=== PATIENT | female | born 1980 | race African-American/Black ===

== ENCOUNTER 2020-11-06 09:03 | Inpatient (IN) | payer OTHER, SELFPAY ==
[2020-11-06 09:04] VITALS: BP 146/74; PULSE 90; RESP 20; TEMP 36.4; O2SAT 99; BMI 20.5
[2020-11-06 09:27] VITALS: BP 115/82; PULSE 103; RESP 18; O2SAT 100
--- NOTE | 2020-11-06 09:33 | PC.NURSE ---
PT cooperative with ion exchange operator, reports SI no plans. Pt tearful, states she has not had her medications in a few days. Pt reports that she has tourette's syndrome, periodically screaming.
--- NOTE | 2020-11-06 10:06 | ED_ITS ---
HPI - Psych General Chief Complaint: Psychiatric Symptoms Stated Complaint: crisis Time Seen by Provider: 11/06/20 09:54 Source: patient Mode of arrival: ambulatory History of Present Illness HPI Narrative: 40-year-old female with a past medical history of schizoaffective disorder, substance abuse, presenting to the ED complaining of suicidal ideations with plan to jump off a bridge into cold water, and medication noncompliance for the past few days. Reports ETOH use yesterday, denies today. Denies HI, also it drug use, cough, fever, chills, CP/SOB MD complaint: suicidal ideation and feels depressed Related Data Home Medications Medication Instructions Recorded Confirmed citalopram 20 mg PO DAILY 11/06/20 11/06/20 risperidone [Risperdal] 1 mg PO DAILY 11/06/20 11/06/20 risperidone [Risperdal] 3 mg PO BEDTIME 11/06/20 11/06/20 Allergies Allergy/AdvReac Type Severity Reaction Status Date / Time haloperidol [From HALDOL] Allergy Mild DROWSY Unverified 07/28/20 17:43 From HALDOL Allergy Mild DROWSY Uncoded 07/28/20 17:43 From SEROQUEL Allergy Mild AUDITORY Uncoded 07/28/20 17:43 HALLUCINATIONS Review of Systems Review of Systems: Constitutional: No Weight loss, No Fever, No Chills Cardiovascular: No Chest Pain, No SOB Respiratory: No Cough, No Sputum Gastrointestinal: No Nausea, No Vomiting, No Diarrhea, No Constipation, No Abdominal pain Musculoskeletal: No joint pain, No Myalgias, No Joint Swelling Skin: No Skin Lesions, No rash Psych: No Anxiety/Panic, + Depression, + SI, No HI Yes all other systems are reviewed and are negative PMFSH Past Medical History Attestation statement: The following information was validated with the patient. Social History Social History Alcohol intake: former Smoking Status: Current every day smoker Smoked in Last 30 Days: Yes Use of substances other than those prescribed or required for medical reasons: No Advance Directives: No Advance Directives Information Provided: No Physical Exam Vital Signs: Vital Signs: Last Vital Signs Temp 97.5 F 11/06/20 09:04 Pulse 103 H 11/06/20 09:27 Resp 18 11/06/20 09:27 BP 115/82 11/06/20 09:27 Pulse Ox 100 11/06/20 09:27 Body Mass Index 20.5 Const: Other: Tearful General: cooperative and healthy appearing Limitations: no limitations HENMT: Head: Yes normal to inspection Ears: hearing grossly normal bilaterally General nose exam: Normal external nose present Face and sinus: Yes normal facial exam Eyes: General: appearance normal, both eyes and all related structures EOM: EOMs intact bilaterally Neck: Neck: Yes normal visual inspection Resp: Effort & Inspection: normal respiratory effort Auscultation: clear to auscultation bilaterally, no rales, no rhonchi and no wheezes Cardio: Rate: regular rate Heart sounds: S1 normal heart sound present and S2 normal heart sound present GI: Inspection: Yes normal to inspection Skin: Rashes: no rashes Wounds: no wounds Neuro: Gait exam (Neuro): Normal gait present Extrem: General: Yes normal to inspection Psych: Attitude: cooperative Thought content: Suicidality present Course Course Course Narrative: * Labs unremarkable, COVID-19 swab negative * Patient was evaluated by [facility] and is now inpatient bed search MDM - Psych MDM Narrative Medical decision making narrative: 40-year-old female with a past medical history of schizoaffective disorder, substance abuse, presenting to the ED complaining of suicidal ideations with plan to jump off a bridge into cold water, and medication noncompliance for the past few days. On exam VSS, NAD, tearful, cooperative. Rule out organic etiology. Plan: Labs, DELGADO, BHN consult Lab Data Result diagrams: 11/06/20 10:26 11/06/20 10:26 Labs: Lab Results 11/06/20 11/06/20 11/06/20 Range/Units 10:03 10:26 10:26 WBC 4.6 L (4.8-10.8) X10*3/uL RBC 4.97 (4.20-5.50) X10*6/uL Hgb 13.4 (12.0-16.0) g/dl Hct 41.8 (37-47) % MCV 84.1 (80-98) fL MCH 27.0 (27.0-33.0) pg MCHC 32.1 (31.0-35.0) g/dl RDW 15.2 (11.0-16.0) % Plt Count 392 (160-400) X10*3/uL MPV 9.3 L (9.4-12.3) fL Immature Gran % (Auto) 0.2 (0.0-0.4) % Neut % (Auto) 44.0 L (45-73) % Lymph % (Auto) 39.8 (20-40) % [place] % (Auto) 7.8 (2-11) % Eos % (Auto) 7.8 H (0-4) % Baso % (Auto) 0.4 (0-2) % Lymph # (Auto) 1.8 (1.2-4.9) X10*3/uL [place] # (Auto) 0.4 (0.1-1.2) X10*3/uL Eos # (Auto) 0.4 (0.0-0.4) X10*3/uL Baso # (Auto) 0.0 (0.0-0.2) X10*3/uL Abs Immat Gran (auto) 0.01 (0.00-0.03) X10*3/uL Absolute Neuts (auto) 2.0 (2.0-8.3) X10*3/uL Absolute Nucleated RBC 0.000 (0.0-0.012) X10*3/uL Nucleated RBC % (auto) 0.0 (0.0-0.2) /100WBC Sodium 139 (135-145) mmol/L Potassium 4.6 (3.3-5.1) mmol/l Chloride 105 (96-108) mmol/L Carbon Dioxide 24 (22-29) mmol/L Anion Gap 15 (12-20) BUN 15 (9-16) mg/dL Creatinine 0.96 (0.5-1.4) mg/dL Estim Creat Clear Calc 67.6 Estimated GFR > 60 Random Glucose 98 (60-115) mg/dL Calcium 9.4 (8.4-10.2) mg/dL Magnesium 2.0 (1.6-2.6) mg/dL Total Bilirubin 0.3 (0.0-1.0) mg/dL Direct Bilirubin < 0.2 (0.0-0.5) mg/dL AST 26 (5-31) U/L ALT 22 (0-31) U/L Alkaline Phosphatase 54 (39-117) U/L Total Protein 8.1 H (6.5-8.0) g/dL Albumin 4.7 (3.5-5.0) g/dL Urine Opiates Screen Not Detected (Not Detect) Ur Barbiturates Screen Not Detected (Not Detect) Ur Phencyclidine Scrn Not Detected (Not Detect) Ur Amphetamines Screen Not Detected (Not Detect) U Benzodiazepines Scrn Not Detected (Not Detect) Urine Cocaine Screen POSITIVE H (Not Detect) U Marijuana (THC) Screen POSITIVE H (Not Detect) Ethyl Alcohol mg/dL COVID-19 (VAISHNAVI) (Negative) COVID-19 Clin Com 11/06/20 11/06/20 Range/Units 10:26 12:03 WBC (4.8-10.8) X10*3/uL RBC (4.20-5.50) X10*6/uL Hgb (12.0-16.0) g/dl Hct (37-47) % MCV (80-98) fL MCH (27.0-33.0) pg MCHC (31.0-35.0) g/dl RDW (11.0-16.0) % Plt Count (160-400) X10*3/uL MPV (9.4-12.3) fL Immature Gran % (Auto) (0.0-0.4) % Neut % (Auto) (45-73) % Lymph % (Auto) (20-40) % [place] % (Auto) (2-11) % Eos % (Auto) (0-4) % Baso % (Auto) (0-2) % Lymph # (Auto) (1.2-4.9) X10*3/uL [place] # (Auto) (0.1-1.2) X10*3/uL Eos # (Auto) (0.0-0.4) X10*3/uL Baso # (Auto) (0.0-0.2) X10*3/uL Abs Immat Gran (auto) (0.00-0.03) X10*3/uL Absolute Neuts (auto) (2.0-8.3) X10*3/uL Absolute Nucleated RBC (0.0-0.012) X10*3/uL Nucleated RBC % (auto) (0.0-0.2) /100WBC Sodium (135-145) mmol/L Potassium (3.3-5.1) mmol/l Chloride (96-108) mmol/L Carbon Dioxide (22-29) mmol/L Anion Gap (12-20) BUN (9-16) mg/dL Creatinine (0.5-1.4) mg/dL Estim Creat Clear Calc Estimated GFR Random Glucose (60-115) mg/dL Calcium (8.4-10.2) mg/dL Magnesium (1.6-2.6) mg/dL Total Bilirubin (0.0-1.0) mg/dL Direct Bilirubin (0.0-0.5) mg/dL AST (5-31) U/L ALT (0-31) U/L Alkaline Phosphatase (39-117) U/L Total Protein (6.5-8.0) g/dL Albumin (3.5-5.0) g/dL Urine Opiates Screen (Not Detect) Ur Barbiturates Screen (Not Detect) Ur Phencyclidine Scrn (Not Detect) Ur Amphetamines Screen (Not Detect) U Benzodiazepines Scrn (Not Detect) Urine Cocaine Screen (Not Detect) U Marijuana (THC) Screen (Not Detect) Ethyl Alcohol < 10 mg/dL COVID-19 (VAISHNAVI) Negative (Negative) COVID-19 Clin Com See Note Discharge Plan Discharge Clinical Impression: Depression, Suicidal ideation Prescriptions: No Action risperidone [Risperdal] 3 mg Tablet 3 mg PO BEDTIME RF: 0 risperidone [Risperdal] 1 mg Tablet 1 mg PO DAILY RF: 0 citalopram 20 mg Tablet 20 mg PO DAILY RF: 0
--- NOTE | 2020-11-06 10:30 | PC.NURSE ---
[facility] contacted, med rec completed. PT currently taking risperdone, also has prescription for citalopram 20mg but that has not been filled since July per the pharmacy.
[2020-11-06 10:33] LABS: Basophils Percent Auto 0.4 % (0-2); Eosinophils Absolute Auto 0.4 X10*3/uL (0.0-0.4); Eosinophils Percent Auto 7.8 % (0-4); Hematocrit 41.8 % (37-47); Hemoglobin 13.4 g/dl (12.0-16.0); Imm Gran Abs Auto 0.01 X10*3/uL (0.00-0.03); Imm Gran Pct Auto 0.2 % (0.0-0.4); Lymphocytes Absolute Auto 1.8 X10*3/uL (1.2-4.9); Lymphocytes Percent Auto 39.8 % (20-40); MANUAL DIFF FLAG NO; Mean Corpuscular HGB Conc 32.1 g/dl (31.0-35.0); Mean Corpuscular Volume 84.1 fL (80-98); Mean Platelet Volume 9.3 fL (9.4-12.3); Monocytes Absolute Auto 0.4 X10*3/uL (0.1-1.2); Monocytes Percent Auto 7.8 % (2-11); Platelet Count 392 X10*3/uL (160-400); Red Blood Count 4.97 X10*6/uL (4.20-5.50); Red Cell Distribution Width 15.2 % (11.0-16.0); White Blood Count 4.6 X10*3/uL (4.8-10.8)
[2020-11-06] MEDS: LORazepam 1 MG TABLET PO (10:35)
[2020-11-06 10:47] LABS: Amphetamine Screen Urine Not Detected (Not Detect); Barbiturates, Urine Not Detected (Not Detect); Benzodiazepines Screen Urine Not Detected (Not Detect); Cannabinoid Screen Urine POSITIVE (Not Detect); Cocaine Screen Urine POSITIVE (Not Detect); Opiate Screen Urine Not Detected (Not Detect); Phencyclidine Screen Urine Not Detected (Not Detect)
[2020-11-06 10:58] LABS: Ethanol < 10 mg/dL
[2020-11-06 11:01] LABS: Alanine Aminotransferase 22 U/L (0-31); Albumin Level 4.7 g/dL (3.5-5.0); Alkaline Phosphatase 54 U/L (39-117); Anion Gap 15 (12-20); Aspartate Amino Transferase 26 U/L (5-31); Bilirubin Direct < 0.2 mg/dL (0.0-0.5); Bilirubin Total 0.3 mg/dL (0.0-1.0); Blood Urea Nitrogen 15 mg/dL (9-16); Calcium 9.4 mg/dL (8.4-10.2); Carbon Dioxide 24 mmol/L (22-29); Chloride 105 mmol/L (96-108); Creatinine Clr Calc Pharmacy 67.6; Estimated Glomerular Filt Rate > 60; Glucose Random 98 mg/dL (60-115); Potassium 4.6 mmol/l (3.3-5.1); Sodium 139 mmol/L (135-145); Total Protein 8.1 g/dL (6.5-8.0)
--- NOTE | 2020-11-06 11:02 | PC.NURSE ---
MARILOU faxed and called, confirmed with angela
--- NOTE | 2020-11-06 11:47 | PC.NURSE ---
[facility] at bedside for eval.
[2020-11-06 12:32] LABS: COVID-19 Test Negative (Negative)
[2020-11-06 13:54] LABS: UPreg QC Valid YES; Urine Pregnancy NEGATIVE (NEGATIVE)
--- NOTE | 2020-11-06 14:14 | PC.NURSE ---
Pt sleeping, respirations even and unlabored, in no apparent distress.
[2020-11-06 16:21] VITALS: BP 93/53; PULSE 57; RESP 18; TEMP 37.1; O2SAT 95
--- NOTE | 2020-11-06 19:01 | PC.NURSE ---
Report received. Pt currently resting in bed, no signs of distress, respirations unlabored.
[2020-11-06] MEDS: risperiDONE 3 MG TABLET PO (20:27)
--- NOTE | 2020-11-06 20:34 | PC.NURSE ---
Pt offered standing dose of risperdal, did not respond to verbal request, not making any movement. RN gently touched pts shoulder, pt immediately shrieking in RN's ear, GET AWAY FROM ME! GET AWAY FROM ME!!! .
[2020-11-06 20:39] VITALS: BP 117/73; PULSE 58; RESP 18; TEMP 36.5; O2SAT 98
--- NOTE | 2020-11-06 21:48 | PC.NURSE ---
Pt currently sleeping, no signs of distress, respirations even and unlabored.
--- NOTE | 2020-11-06 23:51 | PC.NURSE ---
Pt currently sleeping, no signs of distress, respirations even and unlabored.
[2020-11-07 00:29] VITALS: RESP 16
--- NOTE | 2020-11-07 02:06 | PC.NURSE ---
Pt asleep at current, no signs of distress, respirations even and unlabored
--- NOTE | 2020-11-07 03:45 | PC.NURSE ---
PT ACTIVE SECTION 12 BEDSEARCH AT THIS TIME. SLEEPING. NO DISTRESS NOTED.
[2020-11-07 05:42] VITALS: RESP 16
[2020-11-07] MEDS: Nicotine 21 MG PATCH.TD24 TRANSDERMA (06:46)
--- NOTE | 2020-11-07 07:25 | PC.NURSE ---
Report received from yulissa Sheehan RN. Pt awake, conversing loudly w/ another pt. denies any concerns but reporting that there are ';demons' outside.
[2020-11-07] MEDS: LORazepam 1 MG TABLET 2 MG PO (08:14)
[2020-11-07] MEDS: risperiDONE 1 MG TABLET PO (08:15)
[2020-11-07 10:00] VITALS: RESP 18
--- NOTE | 2020-11-07 10:54 | PC.NURSE ---
Pt resting, resp unlabored.
--- NOTE | 2020-11-07 12:00 | PC.NURSE ---
Pt resting, resp unlabored.
[2020-11-07 12:08] VITALS: BP 99/42; PULSE 70; RESP 17; TEMP 37.3; O2SAT 99
--- NOTE | 2020-11-07 13:21 | PC.NURSE ---
Report given to MANJINDER Miguel on M5. Pt aware that she will be transferred upstairs, appears to be in agreement w/ plan.
--- NOTE | 2020-11-07 13:23 | ECG_ITS ---
Test Reason : MEDCLEARANCE Blood Pressure : / mmHG Vent. Rate : 068 BPM Atrial Rate : 068 BPM P-R Int : 140 ms QRS Dur : 088 ms QT Int : 418 ms P-R-T Axes : 015 055 027 degrees QTc Int : 444 ms Normal sinus rhythm Nonspecific T wave abnormality Abnormal ECG When compared with ECG of 07-MAR-2020 15:59, Questionable change in QRS axis Referred By: Generic ED Physician Electronically Signed By:MATHEUS FLAHERTY
--- NOTE | 2020-11-07 15:40 | PC.NURSE ---
Pt resting, resp unlabored.
--- NOTE | 2020-11-07 16:20 | PC.NURSE ---
Late entry: ~1545: CARE team in to transfer pt to . Pt cooperative, no concerns reported.
[2020-11-07 18:00] VITALS: BP 114/76; PULSE 114; TEMP 36.3
[2020-11-07] MEDS: risperiDONE 3 MG TABLET PO (20:07)
[2020-11-07] MEDS: hydrOXYzine HCL 25 MG TABLET PO (20:31)
--- NOTE | 2020-11-07 22:57 | PC.NURSE ---
Patient is a 40 year old Icelandic speaking female admitted as a CV admission to at 1600 and placed on 5 minute safety checks. She was medically cleared in the [facility], evaluated by [facility] and deemed in need of IPLOC secondary to substance use and SI with thoughts to jump off a bridge. Patient was unable to give a clear precip but did say that she has been having AH and VH, that are command in nature, to kill herself. The patient said that she was not even sure where there is a bridge to jump from. Patient has a long history of substance abuse: cocaine and marajuana and also drinks 40 oz of beer every day. The patient said that she has not had a beer in 2 weeks and denied any withdrawal symptoms. Patient was calm and cooperative during her admission process. She denied any current SI and feels safe on . She signed all of the paperwork and answered all of the questions. Her affect was flat and mood appeared depressed and somewhat anxious. Amaris Terrell aware of admission, orders were put in. Patient will be on 5 minute safety checks with unlocked bathroom. She also signed a 3 day notice which is up 11/10/2020.
[2020-11-08 05:05] VITALS: BP 115/64; PULSE 91; RESP 18; TEMP 36.6; O2SAT 99
[2020-11-08] MEDS: risperiDONE 1 MG TABLET PO (08:19)
[2020-11-08] MEDS: Escitalopram Oxalate 10 MG TABLET PO (08:19)
[2020-11-08] MEDS: Nicotine 21 MG PATCH.TD24 TRANSDERMA (10:38)
[2020-11-08] MEDS: LORazepam 0.5 MG TABLET PO (10:38)
[2020-11-08 18:00] VITALS: BP 106/56; PULSE 70; TEMP 36.8
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
[2020-11-08] MEDS: risperiDONE 3 MG TABLET PO (20:33)
[2020-11-08] MEDS: clonazePAM 0.5 MG TABLET PO (20:33)
[2020-11-09 06:30] VITALS: BP 98/63; PULSE 82; RESP 18; TEMP 36.4; O2SAT 98
[2020-11-09] MEDS: risperiDONE 1 MG TABLET PO ×2 (08:11→08:45)
[2020-11-09] MEDS: Escitalopram Oxalate 10 MG TABLET PO (08:11)
[2020-11-09] MEDS: Nicotine 21 MG PATCH.TD24 TRANSDERMA (08:11)
[2020-11-09] MEDS: LORazepam 0.5 MG TABLET PO (08:43)
--- NOTE | 2020-11-09 17:05 | HO.PSYCHPN ---
Subjective Subjective Date of Service: 11/09/20 Reason For Visit: schizoaffective disorder, depressive type Subjective Notes: 3 Day Interim History: Pt reports hearing voices this a.m. (Team confirms pt was responding to internal stimuli). Discussed Risperdal titration of a.m. dosing.and she agrees. Denies reports of perceptual alterations when we met. Discussed substance use. Reports she had been clean for 4-5 weeks [employer]. (UTox + cocaine, canniaus on admit). When she ran out of meds she reports she found herself outside-she did use she reports to self-medicate. States her prescribed medications are more helpful and when taken help her to stay clean. Medication Compliance: Yes Side effects from medications: No Attending Groups: Intermittent Review of Systems Genitourinary: Reports vaginal discharge (ordered CTNG urine and bacterial vaginosis self-swab testing) and Reports vaginal odor Psychiatric: Reports auditory hallucinations Mental Status Exam Mental Status Exam Patient Appearance: Appropriate Patient Orientation: Person, Place, Time and Situation Level of Consciousness: Awake and Alert Patient Behavior: Talkative and Cooperative Mood Description: Anxious Affect Description: Flat Patient Cognition Impaired: No Ability to Follow Directions: Good Speech Pattern: Clear and Appropriate Memory Description: Intact Hallucinations: None (during our meeting) and Auditory (earlier in the day reported and team aware and observing of sx.) Delusions: Not Present Thought Process: Intact Thought Content: positive for Intact, positive for [place], positive for Circumstantial (3 day notice expires 11/10. Pt reports she receives her check tomorrow.) and positive for Logical Depressive Symptoms: Thoughts of /Suicide (denies) Judgement: Fair Diagnostics Vital Signs (24Hr): Vital Signs - 24 hr 11/08/20 18:00 11/09/20 06:30 Temperature 98.2 F 97.6 F Pulse Rate 70 82 Respiratory Rate 18 Blood Pressure 106/56 L 98/63 Pulse Oximetry 98 Body Mass Index 20.5 Labs Results: 11/06/20 10:26 11/06/20 10:26 Labs: Laboratory Results - last 48 hr 11/09/20 13:30 Chlam trachomat DNA PCR Cancelled N.gonorrhoeae DNA (PCR) Cancelled Medications Medications Current Medications Generic Name Dose Route Start Last Admin Trade Name Freq PRN Reason Stop Dose Admin Acetaminophen 650 mg 11/07/20 15:06 Acetaminophen 325 Mg Tablet PO Q6H PRN Headache/Pain Mild Scale (1-3) Al Hydroxide/Mg Hydroxide 30 ml 11/07/20 15:06 Magnesium Hydrox/Alum Hydrox 30 Ml Oral.Susp PO Q6H PRN Heartburn/Nausea Clonazepam 0.5 mg 11/08/20 21:00 11/08/20 20:33 Clonazepam 0.5 Mg Tablet PO 0.5 mg BEDTIME YUDITH Administration Escitalopram Oxalate 10 mg 11/08/20 09:00 11/09/20 08:11 Escitalopram Oxalate 10 Mg Tablet PO 10 mg DAILY YUDITH Administration Hydroxyzine HCl 25 mg 11/07/20 15:06 11/07/20 20:31 Hydroxyzine Hcl 25 Mg Tablet PO 25 mg BEDTIME PRN Administration Anxiety Lorazepam 0.5 mg 11/08/20 10:28 11/09/20 08:43 Lorazepam 0.5 Mg Tablet PO 0.5 mg Q4H PRN Administration anxiety, agitation Magnesium Hydroxide 30 ml 11/07/20 15:06 Milk Of Magnesia 30 Ml Oral.Susp PO DAILY PRN Constipation Nicotine 21 mg 11/08/20 10:30 11/09/20 08:11 Nicotine 21 Mg Patch.Td24 TRANSDERMA 21 mg DAILY YUDITH Administration Risperidone 3 mg 11/06/20 21:00 11/08/20 20:33 Risperidone 3 Mg Tablet PO 3 mg BEDTIME YUDITH Administration Risperidone 1 mg 11/08/20 10:26 11/09/20 08:45 Risperidone 1 Mg Tablet PO 1 mg TID PRN Administration agitation Risperidone 2 mg 11/10/20 09:00 Risperidone 0.5 Mg Tablet PO DAILY YUDITH Trazodone HCl 50 mg 11/07/20 15:06 Trazodone Hcl 50 Mg Tablet PO BEDTIME PRN Insomnia Allergies Allergies Allergy/AdvReac Type Severity Reaction Status Date / Time haloperidol [From HALDOL] Allergy Mild DROWSY Verified 11/06/20 20:26 From HALDOL Allergy Mild DROWSY Uncoded 07/28/20 17:43 From SEROQUEL Allergy Mild AUDITORY Uncoded 07/28/20 17:43 HALLUCINATIONS Assessment & Plan Assessment & Plan (1) Schizoaffective disorder: Status: Acute Code(s): F25.9 - Schizoaffective disorder, unspecified Assessment and Plan: -Increase Risperdal to 2 mg a.m. -Lipids, FBS, A1C Greater than 50% of the session was spent on counseling and/or coordination of care Patient educated on: medication risk/benefits, substance abuse, therapeutic strategies and medical condition Informed Consent: understands and further education needed Reason for contiued inpatient stay Substantial Risk for: harm to self, inability to function and rapid decompensation
[2020-11-09 17:57] VITALS: BP 131/67; PULSE 85; RESP 18; TEMP 37.1; O2SAT 93
[2020-11-09 18:00] VITALS: BP 131/67; PULSE 85; RESP 18; TEMP 37.1; O2SAT 93
[2020-11-09] MEDS: clonazePAM 0.5 MG TABLET PO (21:47)
[2020-11-09] MEDS: risperiDONE 3 MG TABLET PO (21:47)
[2020-11-10 06:00] VITALS: BP 106/57; PULSE 69; TEMP 36.4; O2SAT 99
[2020-11-10] MEDS: Escitalopram Oxalate 10 MG TABLET PO (08:44)
[2020-11-10] MEDS: risperiDONE 0.5 MG TABLET 2 MG PO (08:44)
[2020-11-10] MEDS: Nicotine 21 MG PATCH.TD24 TRANSDERMA (08:45)
[2020-11-10 09:19] LABS: Cholesterol 180 mg/dL; Glucose Fasting 90 mg/dL (60-99); HDL Cholesterol 70 mg/dL; LDL Cholesterol Calculated 95 mg/dl; Triglycerides 79 mg/dL
[2020-11-10 09:20] LABS: Estimated Average Glucose 94 mg/dL; Hemoglobin A1c % 4.9 %
[2020-11-10 09:38] LABS: HIV AB/AG Nonreactive (Nonreactive); HIV Num 1 0.13 S/CO (0.00-0.99)
[2020-11-10 10:09] LABS: BV Int Neg Control Negative (Negative); BV Int Pos Control Positive (Positive)
--- NOTE | 2020-11-10 11:37 | PC.NURSE ---
Pt is aware of discharge. Pt is ready for discharge. Pt is cooperative. Pt is less labile and aggressive than upon admission. Pt's appointments are scheduled. Appointments and medications are faxed to PCP per protocol.
--- NOTE | 2020-11-10 13:41 | PM.PSYDC ---
DS: Providers Provider Date of admission: 11/07/20 15:08 Date of discharge: 11/10/20 Primary care physician: Unknown Physician Admitting clinician: Amaris Terrell Attending physician on admission: Pierre Perez Attending physician on discharge: Pierre Perez Discharging clinician: Amaris Terrell DS: Diagnosis Discharge Diagnosis (1) Schizoaffective disorder: Status: Acute DS: Medications Discharge Medications Home Medications: Previous Rx's Medication Instructions Recorded escitalopram oxalate 10 mg PO DAILY #30 tab 11/10/20 metronidazole 500 mg PO BID #10 tab 11/10/20 risperidone [Risperdal] 2 mg PO DAILY #30 tab 11/10/20 risperidone [Risperdal] 3 mg PO BEDTIME #30 tab 11/10/20 Discharge Plan Discharge Patient Disposition: Home, Self-Care Referrals: Geremias Shipman APRN (Psych Prescriber) [Other] - 12/01/20 1:20 pm Beatriz Urbina CNM [Certified Nurse Customer Service Sales Consultant] - 11/15/20 1:15 pm Physician,Unknown [Primary Care Provider] - Discharge Medications: New escitalopram oxalate 10 mg Tablet 10 mg PO DAILY Qty: 30 RF: 0 metronidazole 500 mg tablet 500 mg PO BID Qty: 10 RF: 0 risperidone [Risperdal] 2 mg tablet 2 mg PO DAILY Qty: 30 RF: 0 Continued risperidone [Risperdal] 3 mg Tablet 3 mg PO BEDTIME Qty: 30 RF: 0 Discontinued risperidone [Risperdal] 1 mg Tablet 1 mg PO DAILY RF: 0 citalopram 20 mg Tablet 20 mg PO DAILY RF: 0 Discharge Orders: Discharge Order (Routine); Ordered 11/10/20 Ordered By: Amaris Terrell Diet: advance to usual diet Activity on Discharge: As tolerated Patient Instructions: Metronidazole (By mouth) Stand Alone Forms: Community Support Discharge Date/Time: 11/10/20 12:45 Print Language: Yoruba Visit Report Forms: Patient Portal Discharge page Care Plan Goals: mood stabilit Health Concerns: Metronidazole given for positive screen for gardnerella Plan of Treatment: Follow up with PCP, gynecology, out patient therapy and medication providers Mental Status Exam Mental Status Exam Patient Appearance: Appropriate Patient Orientation: Person, Place, Time and Situation Level of Consciousness: Awake, Appropriate and Alert Patient Behavior: Appropriate Mood Description: Anxious Affect Description: Constricted Patient Cognition Impaired: No Ability to Follow Directions: Good Speech Pattern: Spontaneous Speech Memory Description: Intact Hallucinations: None Delusions: Not Present Thought Process: Intact Thought Content: positive for Intact Judgement: Fair Data Data Completed and Pending Completed studies during hospitalization [Text1]: 11/06/20 11/06/20 11/06/20 10:03 10:03 10:26 WBC 4.6 L RBC 4.97 Hgb 13.4 Hct 41.8 MCV 84.1 MCH 27.0 MCHC 32.1 RDW 15.2 Plt Count 392 MPV 9.3 L Immature Gran % (Auto) 0.2 Neut % (Auto) 44.0 L Lymph % (Auto) 39.8 [place] % (Auto) 7.8 Eos % (Auto) 7.8 H Baso % (Auto) 0.4 Lymph # (Auto) 1.8 [place] # (Auto) 0.4 Eos # (Auto) 0.4 Baso # (Auto) 0.0 Abs Immat Gran (auto) 0.01 Absolute Neuts (auto) 2.0 Absolute Nucleated RBC 0.000 Nucleated RBC % (auto) 0.0 Sodium Potassium Chloride Carbon Dioxide Anion Gap BUN Creatinine Estim Creat Clear Calc Estimated GFR Random Glucose Fasting Glucose Estimat Average Glucose Hemoglobin A1c % Calcium Magnesium Total Bilirubin Direct Bilirubin AST ALT Alkaline Phosphatase Total Protein Albumin Triglycerides Cholesterol LDL Cholesterol, Calc HDL Cholesterol Urine Test NEGATIVE Urine Opiates Screen Not Detected Ur Barbiturates Screen Not Detected Ur Phencyclidine Scrn Not Detected Ur Amphetamines Screen Not Detected U Benzodiazepines Scrn Not Detected Urine Cocaine Screen POSITIVE H U Marijuana (THC) Screen POSITIVE H Ethyl Alcohol T.pallidum Ab (EIA) Dora species DNA Chlam trachomat DNA PCR C.trachomatis RNA (TMA) Chlamydia/GC Comment COVID-19 ([facility]) COVID-19 Clin Com Gardnerella DNA Probe HIV 1&2 Ab/P24 Ag 4thGn N.gonorrhoeae DNA (PCR) N.gonorrhoeae RNA (TMA) Trichomonas DNA Probe 11/06/20 11/06/20 11/06/20 10:26 10:26 12:03 WBC RBC Hgb Hct MCV MCH MCHC RDW Plt Count MPV Immature Gran % (Auto) Neut % (Auto) Lymph % (Auto) [place] % (Auto) Eos % (Auto) Baso % (Auto) Lymph # (Auto) [place] # (Auto) Eos # (Auto) Baso # (Auto) Abs Immat Gran (auto) Absolute Neuts (auto) Absolute Nucleated RBC Nucleated RBC % (auto) Sodium 139 Potassium 4.6 Chloride 105 Carbon Dioxide 24 Anion Gap 15 BUN 15 Creatinine 0.96 Estim Creat Clear Calc 67.6 Estimated GFR > 60 Random Glucose 98 Fasting Glucose Estimat Average Glucose Hemoglobin A1c % Calcium 9.4 Magnesium 2.0 Total Bilirubin 0.3 Direct Bilirubin < 0.2 AST 26 ALT 22 Alkaline Phosphatase 54 Total Protein 8.1 H Albumin 4.7 Triglycerides Cholesterol LDL Cholesterol, Calc HDL Cholesterol Urine Test Urine Opiates Screen Ur Barbiturates Screen Ur Phencyclidine Scrn Ur Amphetamines Screen U Benzodiazepines Scrn Urine Cocaine Screen U Marijuana (THC) Screen Ethyl Alcohol < 10 T.pallidum Ab (EIA) Dora species DNA Chlam trachomat DNA PCR C.trachomatis RNA (TMA) Chlamydia/GC Comment COVID-19 ([facility]) Negative COVID-19 Clin Com See Note Gardnerella DNA Probe HIV 1&2 Ab/P24 Ag 4thGn N.gonorrhoeae DNA (PCR) N.gonorrhoeae RNA (TMA) Trichomonas DNA Probe 11/09/20 11/09/20 11/09/20 13:30 13:30 13:30 WBC RBC Hgb Hct MCV MCH MCHC RDW Plt Count MPV Immature Gran % (Auto) Neut % (Auto) Lymph % (Auto) [place] % (Auto) Eos % (Auto) Baso % (Auto) Lymph # (Auto) [place] # (Auto) Eos # (Auto) Baso # (Auto) Abs Immat Gran (auto) Absolute Neuts (auto) Absolute Nucleated RBC Nucleated RBC % (auto) Sodium Potassium Chloride Carbon Dioxide Anion Gap BUN Creatinine Estim Creat Clear Calc Estimated GFR Random Glucose Fasting Glucose Estimat Average Glucose Hemoglobin A1c % Calcium Magnesium Total Bilirubin Direct Bilirubin AST ALT Alkaline Phosphatase Total Protein Albumin Triglycerides Cholesterol LDL Cholesterol, Calc HDL Cholesterol Urine Test Urine Opiates Screen Ur Barbiturates Screen Ur Phencyclidine Scrn Ur Amphetamines Screen U Benzodiazepines Scrn Urine Cocaine Screen U Marijuana (THC) Screen Ethyl Alcohol T.pallidum Ab (EIA) Dora species DNA Negative Chlam trachomat DNA PCR Cancelled C.trachomatis RNA (TMA) Pending Chlamydia/GC Comment Pending COVID-19 ([facility]) COVID-19 Clin Com Gardnerella DNA Probe Positive A HIV 1&2 Ab/P24 Ag 4thGn N.gonorrhoeae DNA (PCR) Cancelled N.gonorrhoeae RNA (TMA) Pending Trichomonas DNA Probe Negative 11/10/20 11/10/20 11/10/20 08:14 08:14 08:14 WBC RBC Hgb Hct MCV MCH MCHC RDW Plt Count MPV Immature Gran % (Auto) Neut % (Auto) Lymph % (Auto) [place] % (Auto) Eos % (Auto) Baso % (Auto) Lymph # (Auto) [place] # (Auto) Eos # (Auto) Baso # (Auto) Abs Immat Gran (auto) Absolute Neuts (auto) Absolute Nucleated RBC Nucleated RBC % (auto) Sodium Potassium Chloride Carbon Dioxide Anion Gap BUN Creatinine Estim Creat Clear Calc Estimated GFR Random Glucose Fasting Glucose 90 Estimat Average Glucose Hemoglobin A1c % Calcium Magnesium Total Bilirubin Direct Bilirubin AST ALT Alkaline Phosphatase Total Protein Albumin Triglycerides 79 Cholesterol 180 LDL Cholesterol, Calc 95 HDL Cholesterol 70 Urine Test Urine Opiates Screen Ur Barbiturates Screen Ur Phencyclidine Scrn Ur Amphetamines Screen U Benzodiazepines Scrn Urine Cocaine Screen U Marijuana (THC) Screen Ethyl Alcohol T.pallidum Ab (EIA) Pending Dora species DNA Chlam trachomat DNA PCR C.trachomatis RNA (TMA) Chlamydia/GC Comment COVID-19 ([facility]) COVID-19 Clin Com Gardnerella DNA Probe HIV 1&2 Ab/P24 Ag 4thGn Nonreactive N.gonorrhoeae DNA (PCR) N.gonorrhoeae RNA (TMA) Trichomonas DNA Probe 11/10/20 08:14 WBC RBC Hgb Hct MCV MCH MCHC RDW Plt Count MPV Immature Gran % (Auto) Neut % (Auto) Lymph % (Auto) [place] % (Auto) Eos % (Auto) Baso % (Auto) Lymph # (Auto) [place] # (Auto) Eos # (Auto) Baso # (Auto) Abs Immat Gran (auto) Absolute Neuts (auto) Absolute Nucleated RBC Nucleated RBC % (auto) Sodium Potassium Chloride Carbon Dioxide Anion Gap BUN Creatinine Estim Creat Clear Calc Estimated GFR Random Glucose Fasting Glucose Estimat Average Glucose 94 Hemoglobin A1c % 4.9 Calcium Magnesium Total Bilirubin Direct Bilirubin AST ALT Alkaline Phosphatase Total Protein Albumin Triglycerides Cholesterol LDL Cholesterol, Calc HDL Cholesterol Urine Test Urine Opiates Screen Ur Barbiturates Screen Ur Phencyclidine Scrn Ur Amphetamines Screen U Benzodiazepines Scrn Urine Cocaine Screen U Marijuana (THC) Screen Ethyl Alcohol T.pallidum Ab (EIA) Dora species DNA Chlam trachomat DNA PCR C.trachomatis RNA (TMA) Chlamydia/GC Comment COVID-19 ([facility]) COVID-19 Clin Com Gardnerella DNA Probe HIV 1&2 Ab/P24 Ag 4thGn N.gonorrhoeae DNA (PCR) N.gonorrhoeae RNA (TMA) Trichomonas DNA Probe DS: Summary Hospital Course Hospital Course: 40 yo female reporting being off of medications for ~72 hours with SI and plan to jump from a bridge. Reported AH, [employer], improved with re-establishing Risperdal dosing when she signed a 3 day notice to leave, citing wanting to visit with her son on and apple picker her monthly check. Reports she was clean/sober until 11/03 when she started to run low on meds. She relapsed on cannabis and cocaine and found herself destabilized and unmodulated which led to SI. Pt was agreeable to Risperdal titration. She reported vaginal discharge, odor and discomfort. Urine and vaginal cultures were taken and pt was initiated on a course of Metronidazole 500 mg bid for 5 days after a consultation with Dr. Siu. She completed the three day notice length of stay for evaluation. Time spent discussing smoking cessation with patient: more than 10 minutes Status at Discharge Cognitive/behavioral status at discharge: Euthymic and anxious to leave. Functional status at discharge: independent ambulation Overall status at discharge: patient is progressing back to baseline Time Spent with Patient Time attestation: Total time spent providing and/or coordinating discharge services: 45 Time spent: Greater than 30 minutes
[2020-11-11 03:44] LABS: Syphilis Screen Nonreactive (Nonreactive)
== END 2020-11-10 12:45 | disposition home or self-care (01) | DRG 750 ==
LOC: HO.ED 11-07 08:10 → HO.PM5 11-07 15:15
PROVIDERS: Clinical Nurse Specialist Psychiatric/Mental Health, Adult; Physician Assistant; Admitting Provider Psychiatry & Neurology Psychiatry; Emergency Provider Emergency Medicine Emergency Medical Services; Visit Provider Psychiatry & Neurology Psychiatry
DX: F25.9 Schizoaffective disorder, unspecified (principal); R45.851 Suicidal ideations; Z91.14 Patient's other noncompliance with medication regimen; Z20.828 Contact with and (suspected) exposure to other viral communicable diseases; Z79.899 Other long term (current) drug therapy
CPT/HCPCS: 36415; 80048; 80061; 80076; 80307; 80320; 81025; 82947; 83036; 83735; 85025; 86780; 87389; 87480; 87491; 87510; 87591; 87635; 87660; 90792; 93005; 99232; 99239; 99285

== ENCOUNTER 2020-12-29 07:35 | Inpatient (IN) | payer OTHER, SELFPAY ==
[2020-12-29 08:14] VITALS: BP 130/79; PULSE 72; RESP 20; TEMP 37.2; O2SAT 97; BMI 21.2
--- NOTE | 2020-12-29 08:25 | ECG_ITS ---
Test Reason : QUESION OVERDOSE Blood Pressure : / mmHG Vent. Rate : 059 BPM Atrial Rate : 059 BPM P-R Int : 142 ms QRS Dur : 082 ms QT Int : 444 ms P-R-T Axes : 009 071 048 degrees QTc Int : 439 ms Sinus bradycardia Otherwise normal ECG When compared with ECG of 07-NOV-2020 13:25, No significant change was found Referred By: Generic ED Physician Electronically Signed By:Brent Marion
[2020-12-29 08:33] LABS: MANUAL DIFF FLAG NO
[2020-12-29 08:35] LABS: Basophils Percent Auto 0.3 % (0-2); Eosinophils Absolute Auto 0.1 X10*3/uL (0.0-0.4); Eosinophils Percent Auto 0.7 % (0-4); Hematocrit 35.6 % (37-47); Hemoglobin 11.5 g/dl (12.0-16.0); Imm Gran Abs Auto 0.01 X10*3/uL (0.00-0.03); Imm Gran Pct Auto 0.1 % (0.0-0.4); Lymphocytes Absolute Auto 3.1 X10*3/uL (1.2-4.9); Mean Corpuscular HGB Conc 32.3 g/dl (31.0-35.0); Mean Corpuscular Hemoglobin 26.8 pg (27.0-33.0); Mean Platelet Volume 8.9 fL (9.4-12.3); Monocytes Absolute Auto 0.8 X10*3/uL (0.1-1.2); Monocytes Percent Auto 8.3 % (2-11); Neutrophils Absolute Auto 5.6 X10*3/uL (2.0-8.3); Neutrophils Percent Auto 58.6 % (45-73); Platelet Count 357 X10*3/uL (160-400); Red Blood Count 4.29 X10*6/uL (4.20-5.50); Red Cell Distribution Width 15.5 % (11.0-16.0); White Blood Count 9.6 X10*3/uL (4.8-10.8)
--- NOTE | 2020-12-29 08:40 | ED.PSYCH ---
HPI - Psych General Chief Complaint: Psychiatric Symptoms Stated Complaint: crisis Time Seen by Provider: 12/29/20 08:40 Source: patient Mode of arrival: ambulatory Limitations: no limitations History of Present Illness HPI Narrative: 40 y/o female with history of schizoaffective disorder, depression, polysubstance abuse, depression with multiple visits for SI, reported hx of suidide attempts, and homelessness who presents to the ED with depression and suicidal ideation. She states she is suicidal weekly due to ongoing stressors of being homeless. She wants to move to [place] and have a fresh start. She has no reason to live. She has been scratching herself and pulling out her hair. No other significant injuries. She initially told nursing she took an overdose of her Invega, then she later stated that she ran out of her medication. She denies a specific plan to kill herself. She admits to smoking crack cocaine yesterday. Denies ETOH use and other drug use. MD complaint: suicidal ideation Onset (ago): day(s) Duration: constant History of same: Yes Relieving factors: none Exacerbating factors: drug use Context: recent drug abuse and not taking psychiatric medications Associated psychiatric symptoms: depression, suicidal ideation and auditory hallucinations Associated symptoms: insomnia Treatments prior to arrival: none If self harm: admits thoughts of self harm Related Data Home Medications Medication Instructions Recorded Confirmed divalproex [Depakote ER] 500 mg PO BEDTIME 12/29/20 12/29/20 mirtazapine 15 mg PO BEDTIME 12/29/20 12/29/20 naltrexone 50 mg PO DAILY 12/29/20 12/29/20 paliperidone [Invega] 6 mg PO QAM 12/29/20 12/29/20 Allergies Allergy/AdvReac Type Severity Reaction Status Date / Time haloperidol [From HALDOL] Allergy Mild DROWSY Verified 11/06/20 20:26 From HALDOL Allergy Mild DROWSY Uncoded 07/28/20 17:43 From SEROQUEL Allergy Mild AUDITORY Uncoded 07/28/20 17:43 HALLUCINATIONS Review of Systems Review of Systems: Constitutional: No Fever, No Chills Cardiovascular: No Chest Pain, No SOB, No Orthopnea, No Edema Respiratory: No Cough, No Sputum, No Wheezing, No dyspnea Gastrointestinal: No Nausea, No Vomiting, No Diarrhea, No abdominal Pain Genitourinary: No Dysuria, No Urinary Frequency, No Hematuria Musculoskeletal: No joint pain, No Myalgias Skin: N+ Skin Lesions, No rash Neuro: No Weakness, No Numbness, No Dizziness, No Headache Psych: +Anxiety/Panic, +Depression, +SI, +auditory hallucinations Heme/Lymph: No Bruising, No Lymphadenopathy Endocrine: No Polyuria, No Polydipsia PMF Past Medical History Attestation statement: The following information was validated with the patient. Medical History Cannabis use disorder, moderate, dependence Cocaine use disorder Schizoaffective disorder Social History Social History Household Members: Family Housing: Apartment Alcohol intake: former Smoking Status: Current every day smoker Tobacco Type: Cigarette Packs Per Day: 1 Cigarettes Per Day: 20.0 Years Smoked: 10 Second Hand Smoke Exposure: No Substance Use Type: Crack/Cocaine and Marijuana Advance Directives: No Advance Directives Information Provided: No service: No Sexual orientation: Straight/Heterosexual Physical Exam Vital Signs: Vital Signs: Last Vital Signs Temp 98.9 F 12/29/20 08:14 Pulse 72 12/29/20 08:14 Resp 20 12/29/20 14:00 BP 130/79 12/29/20 08:14 Pulse Ox 97 12/29/20 08:14 Body Mass Index 21.2 Appearance: Alert. Oriented X3. Tearful and anxious Eyes: Pupils equal, round and reactive to light. ENT: Pharynx normal. Neck: Normal inspection. Neck supple. CVS: Normal heart rate and rhythm. Pulses normal. Respiratory: No respiratory distress. Breath sounds normal. Abdomen: Soft and nontender. +BS x4 Skin: Skin warm and dry. Normal skin color. Normal skin turgor. No rashes. Extremities: No lower extremity edema. Superficial scratches to bilateral forearms. Neuro/Psych: Oriented X 3. Racing thoughts, SI, +auditory hallucinations, tearful, inconsistent affect, laughing and crying. poor insight Course Course Course Narrative: 40 y/o female presenting with SI and auditory hallucinations - question of taking too much Invega. She is inconsistent with her history. Will get basic lab workup and EKG. Once medically cleared will have her evaluated by N. Reevaluation(s) Reevaluation #1: EKG without prolonged QTC. labs show mild new anemia. Utox +cocaine and THC. Will start home meds aside from Invega which will be started tomorrow. BHN to see. MDM - Psych Medical Records Attestation: I reviewed the patient's medical records. Lab Data Attestation: I reviewed the patient's lab results. Result diagrams: 12/29/20 08:27 12/29/20 08:27 Labs: Lab Results 12/29/20 12/29/20 12/29/20 Range/Units 08:27 08:27 08:27 WBC 9.6 (4.8-10.8) X10*3/uL RBC 4.29 (4.20-5.50) X10*6/uL Hgb 11.5 L (12.0-16.0) g/dl Hct 35.6 L (37-47) % MCV 83.0 (80-98) fL MCH 26.8 L (27.0-33.0) pg MCHC 32.3 (31.0-35.0) g/dl RDW 15.5 (11.0-16.0) % Plt Count 357 (160-400) X10*3/uL MPV 8.9 L (9.4-12.3) fL Immature Gran % (Auto) 0.1 (0.0-0.4) % Neut % (Auto) 58.6 (45-73) % Lymph % (Auto) 32.0 (20-40) % [place] % (Auto) 8.3 (2-11) % Eos % (Auto) 0.7 (0-4) % Baso % (Auto) 0.3 (0-2) % Lymph # (Auto) 3.1 (1.2-4.9) X10*3/uL [place] # (Auto) 0.8 (0.1-1.2) X10*3/uL Eos # (Auto) 0.1 (0.0-0.4) X10*3/uL Baso # (Auto) 0.0 (0.0-0.2) X10*3/uL Abs Immat Gran (auto) 0.01 (0.00-0.03) X10*3/uL Absolute Neuts (auto) 5.6 (2.0-8.3) X10*3/uL Absolute Nucleated RBC 0.000 (0.0-0.012) X10*3/uL Nucleated RBC % (auto) 0.0 (0.0-0.2) /100WBC Sodium 140 (135-145) mmol/L Potassium 4.0 (3.3-5.1) mmol/L Chloride 107 (96-108) mmol/L Carbon Dioxide 25 (22-29) mmol/L Anion Gap 12 (12-20) BUN 8 L (9-16) mg/dL Creatinine 0.75 (0.5-1.4) mg/dL Estim Creat Clear Calc 83.3 Estimated GFR > 60 Random Glucose 89 (60-115) mg/dL Calcium 8.9 (8.4-10.2) mg/dL Total Bilirubin 0.3 (0.0-1.0) mg/dL AST 22 (5-31) U/L ALT 17 (0-31) U/L Alkaline Phosphatase 46 (39-117) U/L Total Protein 7.2 (6.5-8.0) g/dL Albumin 4.3 (3.5-5.0) g/dL Urine Test (NEGATIVE) Salicylates < 5.0 L (15-30) mg/dL Urine Opiates Screen (Not Detect) Acetaminophen < 1 (<30) mcg/mL Ur Barbiturates Screen (Not Detect) Ur Phencyclidine Scrn (Not Detect) Ur Amphetamines Screen (Not Detect) U Benzodiazepines Scrn (Not Detect) Urine Cocaine Screen (Not Detect) U Marijuana (THC) Screen (Not Detect) Ethyl Alcohol < 10 mg/dL COVID-19 ([facility]) (Negative) COVID-19 Clin Com 12/29/20 12/29/20 12/29/20 Range/Units 09:29 13:00 13:10 WBC (4.8-10.8) X10*3/uL RBC (4.20-5.50) X10*6/uL Hgb (12.0-16.0) g/dl Hct (37-47) % MCV (80-98) fL MCH (27.0-33.0) pg MCHC (31.0-35.0) g/dl RDW (11.0-16.0) % Plt Count (160-400) X10*3/uL MPV (9.4-12.3) fL Immature Gran % (Auto) (0.0-0.4) % Neut % (Auto) (45-73) % Lymph % (Auto) (20-40) % [place] % (Auto) (2-11) % Eos % (Auto) (0-4) % Baso % (Auto) (0-2) % Lymph # (Auto) (1.2-4.9) X10*3/uL [place] # (Auto) (0.1-1.2) X10*3/uL Eos # (Auto) (0.0-0.4) X10*3/uL Baso # (Auto) (0.0-0.2) X10*3/uL Abs Immat Gran (auto) (0.00-0.03) X10*3/uL Absolute Neuts (auto) (2.0-8.3) X10*3/uL Absolute Nucleated RBC (0.0-0.012) X10*3/uL Nucleated RBC % (auto) (0.0-0.2) /100WBC Sodium (135-145) mmol/L Potassium (3.3-5.1) mmol/L Chloride (96-108) mmol/L Carbon Dioxide (22-29) mmol/L Anion Gap (12-20) BUN (9-16) mg/dL Creatinine (0.5-1.4) mg/dL Estim Creat Clear Calc Estimated GFR Random Glucose (60-115) mg/dL Calcium (8.4-10.2) mg/dL Total Bilirubin (0.0-1.0) mg/dL AST (5-31) U/L ALT (0-31) U/L Alkaline Phosphatase (39-117) U/L Total Protein (6.5-8.0) g/dL Albumin (3.5-5.0) g/dL Urine Test NEGATIVE (NEGATIVE) Salicylates (15-30) mg/dL Urine Opiates Screen Not Detected (Not Detect) Acetaminophen (<30) mcg/mL Ur Barbiturates Screen Not Detected (Not Detect) Ur Phencyclidine Scrn Not Detected (Not Detect) Ur Amphetamines Screen Not Detected (Not Detect) U Benzodiazepines Scrn Not Detected (Not Detect) Urine Cocaine Screen POSITIVE H (Not Detect) U Marijuana (THC) Screen POSITIVE H (Not Detect) Ethyl Alcohol mg/dL COVID-19 ([facility]) Negative (Negative) COVID-19 Clin Com See Note ECG Data Attestation: I personally reviewed and interpreted this ECG as follows: ECG interpretation date: 12/29/20 ECG interpretation time: 13:44 Interpretation: sinus bradycardia, HR 59, QTc 439 ms, normal MN interval. Critical Care Time Critical Care Time Critical Care Time: No Discharge Plan Discharge Prescriptions: No Action naltrexone 50 mg Tablet 50 mg PO DAILY RF: 0 mirtazapine 15 mg Tablet 15 mg PO BEDTIME RF: 0 paliperidone [Invega] 6 mg Tablet Extended Release 24hr 6 mg PO QAM RF: 0 divalproex [Depakote ER] 500 mg Tablet Extended Release 24 Hr 500 mg PO BEDTIME RF: 0
[2020-12-29] MEDS: LORazepam 1 MG TABLET 2 MG PO (08:53)
[2020-12-29 09:06] LABS: Ethanol < 10 mg/dL
[2020-12-29 09:08] LABS: Acetaminophen LAB < 1 mcg/mL (<30); Alanine Aminotransferase 17 U/L (0-31); Albumin Level 4.3 g/dL (3.5-5.0); Alkaline Phosphatase 46 U/L (39-117); Anion Gap 12 (12-20); Aspartate Amino Transferase 22 U/L (5-31); Bilirubin Total 0.3 mg/dL (0.0-1.0); Blood Urea Nitrogen 8 mg/dL (9-16); Calcium 8.9 mg/dL (8.4-10.2); Carbon Dioxide 25 mmol/L (22-29); Chloride 107 mmol/L (96-108); Creatinine Clr Calc Pharmacy 83.3; Estimated Glomerular Filt Rate > 60; Glucose Random 89 mg/dL (60-115); Salicylate < 5.0 mg/dL (15-30); Sodium 140 mmol/L (135-145); Total Protein 7.2 g/dL (6.5-8.0)
--- NOTE | 2020-12-29 09:37 | PC.NURSE ---
On patient arrival, pt agitated, swearing, tearful. Pt seen by provider and medicated as ordered. Pt currently resting in room.
--- NOTE | 2020-12-29 09:56 | PC.NURSE ---
Pharmacy in to complete medication reconciliation.
[2020-12-29 10:00] VITALS: RESP 20
--- NOTE | 2020-12-29 10:04 | PC.NURSE ---
Pt declined to allow staff to complete EKG.
[2020-12-29 10:06] LABS: COVID-19 Test Negative (Negative); IDNOW Serial# 9DD0AD1C
--- NOTE | 2020-12-29 10:20 | PC.NURSE ---
[facility] called and faxed
--- NOTE | 2020-12-29 10:33 | PC.NURSE ---
Pt resting, resp unlabored.
[2020-12-29 12:00] VITALS: RESP 20
--- NOTE | 2020-12-29 12:05 | PC.NURSE ---
Pt resting resp unlabored
[2020-12-29 13:22] LABS: UPreg QC Valid YES; Urine Pregnancy NEGATIVE (NEGATIVE)
[2020-12-29 13:46] LABS: Amphetamine Screen Urine Not Detected (Not Detect); Barbiturates, Urine Not Detected (Not Detect); Benzodiazepines Screen Urine Not Detected (Not Detect); Cannabinoid Screen Urine POSITIVE (Not Detect); Cocaine Screen Urine POSITIVE (Not Detect); Opiate Screen Urine Not Detected (Not Detect); Phencyclidine Screen Urine Not Detected (Not Detect)
--- NOTE | 2020-12-29 13:51 | PC.NURSE ---
Pt resting- reviewed RENUKA w/ A Analilia- Delgado held today secondary to question of OD.
[2020-12-29 14:00] VITALS: RESP 20
--- NOTE | 2020-12-29 15:24 | PC.NURSE ---
Pt restiong, resp unlabored
--- NOTE | 2020-12-29 16:54 | PC.NURSE ---
CARE team aware that pt has not been evaluated by N, in to evaluate at this time.
--- NOTE | 2020-12-29 17:40 | MHC.CARE ---
Pt was seen by CARE Team, with plan for inpatient bedsearch. Full assessment to follow.
[2020-12-29 17:43] VITALS: BP 110/64; PULSE 62; RESP 16; TEMP 36.5; O2SAT 97
[2020-12-29 18:00] VITALS: RESP 20
--- NOTE | 2020-12-29 18:12 | PC.NURSE ---
Pt resting, resp unlabored
--- NOTE | 2020-12-29 19:16 | PC.NURSE ---
Patient in bed appears sleeping, no distress observed/reported, respiration +/=/non-labored bilaterally, pending admission to . will continue to monitor.
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
[2020-12-30 06:40] VITALS: BP 100/54; PULSE 50; RESP 14; TEMP 36.9; O2SAT 98
[2020-12-30] MEDS: Naltrexone HCl 50 MG TABLET PO (08:32)
[2020-12-30] MEDS: Paliperidone ER 6 MG TAB.ER.24 PO (08:33)
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
[2020-12-30 17:00] VITALS: BP 100/54; PULSE 52; TEMP 37.1
[2020-12-30] MEDS: Divalproex Sodium ER 500 MG TAB.ER.24H PO (21:55)
[2020-12-30] MEDS: Mirtazapine 15 MG TABLET PO (21:56)
[2020-12-31 06:35] VITALS: BP 87/45; PULSE 50; RESP 18; TEMP 36.7; O2SAT 96
[2020-12-31] MEDS: Ferrous Sulfate 324 MG TABLET.DR PO (08:30)
[2020-12-31] MEDS: Paliperidone ER 6 MG TAB.ER.24 PO (08:30)
[2020-12-31] MEDS: Naltrexone HCl 50 MG TABLET PO (08:30)
[2020-12-31 09:13] LABS: Cholesterol 190 mg/dL; Estimated Average Glucose 94 mg/dL; Glucose Fasting 82 mg/dL (60-99); HDL Cholesterol 64 mg/dL; Hemoglobin A1c % 4.9 %; LDL Cholesterol Calculated 114 mg/dl; Triglycerides 60 mg/dL
[2020-12-31 09:17] LABS: Valproate 28.8 mcg/mL (50.0-100.0)
[2020-12-31 09:30] LABS: Thyroid Stimulating Hormone 0.64 uIU/mL (0.32-4.0)
--- NOTE | 2020-12-31 16:14 | HO.PSYCHPN ---
Subjective Subjective Date of Service: 12/31/20 Reason For Visit: Schizoaffective Disorder Subjective Notes: Conditional Voluntary Interim History: Narcisa was pleasant and cooperative. She reports that she is improving and had no immediate concerns Medication Compliance: Yes Side effects from medications: No Attending Groups: Intermittent Review of Systems Acute medical concerns: No Medical Review of Systems: unchanged Review of Systems Review of Systems Constitutional: No Fever, No Chills Cardiovascular: No Chest Pain, No SOB, No Orthopnea, No Edema Respiratory: No Cough, No Sputum, No Wheezing, No dyspnea Gastrointestinal: No Nausea, No Vomiting, No Diarrhea, No abdominal Pain Genitourinary: No Dysuria, No Urinary Frequency, No Hematuria Musculoskeletal: No joint pain, No Myalgias Skin: N+ Skin Lesions, No rash Neuro: No Weakness, No Numbness, No Dizziness, No Headache Psych: +Anxiety/Panic, +Depression, +SI, +auditory hallucinations Heme/Lymph: No Bruising, No Lymphadenopathy Endocrine: No Polyuria, No Polydipsia Mental Status Exam Mental Status Exam Patient Appearance: Fatigued and Disheveled Patient Orientation: Person, Place, Time and Situation Level of Consciousness: Awake Patient Behavior: Guarded, Talkative, Cooperative, Suspicious, Anxious, Fatigued, Distractible and Good Eye Contact Mood Description: Apathetic, Withdrawn, Depressed and Anxious Affect Description: Withdrawn and Constricted Patient Cognition Impaired: No Ability to Follow Directions: Good Speech Pattern: Clear, Perseverating, Spontaneous Speech, Soft-Spoken and Delayed Memory Description: Episodic Impaired Thought Content: negative for Suicidal Ideation and negative for Homicidal Ideation Diagnostics Vital Signs (24Hr): Vital Signs - 24 hr 12/30/20 17:00 12/31/20 06:35 Temperature 98.8 F 98.1 F Pulse Rate 52 50 Respiratory Rate 18 Blood Pressure 100/54 L 87/45 L Pulse Oximetry 96 Body Mass Index 21.2 Labs Results: 12/29/20 08:27 12/29/20 08:27 Labs: Laboratory Results - last 48 hr 12/31/20 12/31/20 08:16 08:16 Fasting Glucose 82 Estimat Average Glucose 94 Hemoglobin A1c % 4.9 Triglycerides 60 Cholesterol 190 LDL Cholesterol, Calc 114 HDL Cholesterol 64 TSH 0.64 Valproic Acid 28.8 L Medications Medications Current Medications Generic Name Dose Route Start Last Admin Trade Name Freq PRN Reason Stop Dose Admin Acetaminophen 650 mg 02/18/21 21:05 Acetaminophen 325 Mg Tablet PO Q6H PRN Headache/Pain Mild Scale (1-3) Al Hydroxide/Mg Hydroxide 30 ml 12/29/20 21:05 Magnesium Hydrox/Alum Hydrox 30 Ml Oral.Susp PO Q6H PRN Heartburn/Nausea Divalproex Sodium 500 mg 12/29/20 21:00 12/30/20 21:55 Divalproex Sodium Er 500 Mg Tab.Er.24h PO 500 mg BEDTIME [facility] Administration Ferrous Sulfate 324 mg 12/31/20 09:00 12/31/20 08:30 Ferrous Sulfate 324 Mg Tablet.Dr PO 324 mg DAILY [facility] Administration Hydroxyzine HCl 25 mg 12/29/20 21:05 Hydroxyzine Hcl 25 Mg Tablet PO BEDTIME PRN Anxiety Magnesium Hydroxide 30 ml 12/29/20 21:05 Milk Of Magnesia 30 Ml Oral.Susp PO DAILY PRN Constipation Mirtazapine 15 mg 12/29/20 21:00 12/30/20 21:56 Mirtazapine 15 Mg Tablet PO 15 mg BEDTIME [facility] Administration Naltrexone HCl 50 mg 12/30/20 09:00 12/31/20 08:30 Naltrexone Hcl 50 Mg Tablet PO 50 mg DAILY [facility] Administration Nicotine Polacrilex 2 mg 12/29/20 21:05 Nicotine Polacrilex 2 Mg Gum BUCCAL Q2H PRN Nicotine Cravings Paliperidone 6 mg 12/29/20 11:15 12/31/20 08:30 Paliperidone Er 6 Mg Tab.Er.24 PO 6 mg DAILY [facility] Administration Pharmacy Consult 1 each 12/29/20 08:44 Consult Rx Perform Med Rec MISCELLANE ONCE PRN Consult order Trazodone HCl 50 mg 12/29/20 21:05 Trazodone Hcl 50 Mg Tablet PO BEDTIME PRN Insomnia Allergies Allergies Allergy/AdvReac Type Severity Reaction Status Date / Time haloperidol [From HALDOL] Allergy Mild DROWSY Verified 11/06/20 20:26 From HALDOL Allergy Mild DROWSY Uncoded 07/28/20 17:43 From SEROQUEL Allergy Mild AUDITORY Uncoded 07/28/20 17:43 HALLUCINATIONS Assessment & Plan Assessment & Plan (1) Mild anemia: Status: Acute Code(s): D64.9 - Anemia, unspecified Assessment and Plan: Ferrous Sulfate 324 mg daily Labs ordered (2) Cannabis use disorder, moderate, dependence: Status: Acute Code(s): F12.20 - Cannabis dependence, uncomplicated (3) Cocaine use disorder: Status: Acute Code(s): F14.10 - Cocaine abuse, uncomplicated Assessment and Plan: - Pt interested in [facility] (4) Schizoaffective disorder: Qualifiers: Schizoaffective disorder type: unspecified Qualified Code(s): F25.9 - Schizoaffective disorder, unspecified Status: Acute Code(s): F25.9 - Schizoaffective disorder, unspecified Assessment and Plan: -Re-establish regime of Invega, Valproate, Mirtazapine, Naltrexone (5) Depression: Qualifiers: Active/Remission status: currently active Depression Type: major depressive disorder Major depression episode severity: severe Major depression recurrence: recurrent Psychotic features: without psychotic features Qualified Code(s): F33.2 - Major depressive disorder, recurrent severe without psychotic features Status: Acute Code(s): F32.9 - Major depressive disorder, single episode, unspecified Assessment and Plan: -Milieu therapy, psychopharmacology, re-establish out patient alliances and residential treatment Greater than 50% of the session was spent on counseling and/or coordination of care Reason for contiued inpatient stay Substantial Risk for: inability to function
[2020-12-31 19:00] VITALS: BP 102/51; PULSE 70; TEMP 36.8
[2020-12-31] MEDS: Mirtazapine 15 MG TABLET PO (20:21)
[2020-12-31] MEDS: Divalproex Sodium ER 500 MG TAB.ER.24H PO (20:22)
[2021-01-01 06:30] VITALS: BP 104/54; PULSE 58; RESP 14; TEMP 36.7; O2SAT 98
[2021-01-01] MEDS: Naltrexone HCl 50 MG TABLET PO (09:08)
[2021-01-01] MEDS: Ferrous Sulfate 324 MG TABLET.DR PO (09:08)
[2021-01-01] MEDS: Paliperidone ER 6 MG TAB.ER.24 PO (09:08)
[2021-01-01] MEDS: Nicotine 21 MG PATCH.TD24 TRANSDERMA (14:02)
[2021-01-01 16:50] VITALS: BP 122/60; PULSE 78; TEMP 37.2
--- NOTE | 2021-01-01 17:14 | HO.PSYCHPN ---
Subjective Subjective Date of Service: 01/01/21 Reason For Visit: Schizoaffective Disorder Subjective Notes: Conditional Voluntary Interim History: Narcisa was pleasant and cooperative. She reports that she is improving and had no immediate concerns Medication Compliance: Yes Side effects from medications: No Attending Groups: No Review of Systems Acute medical concerns: No Medical Review of Systems: unchanged Review of Systems Review of Systems Constitutional: No Fever, No Chills Cardiovascular: No Chest Pain, No SOB, No Orthopnea, No Edema Respiratory: No Cough, No Sputum, No Wheezing, No dyspnea Gastrointestinal: No Nausea, No Vomiting, No Diarrhea, No abdominal Pain Genitourinary: No Dysuria, No Urinary Frequency, No Hematuria Musculoskeletal: No joint pain, No Myalgias Skin: N+ Skin Lesions, No rash Neuro: No Weakness, No Numbness, No Dizziness, No Headache Psych: +Anxiety/Panic, +Depression, +SI, +auditory hallucinations Heme/Lymph: No Bruising, No Lymphadenopathy Endocrine: No Polyuria, No Polydipsia Mental Status Exam Mental Status Exam Patient Appearance: Fatigued and Disheveled Patient Orientation: Person, Place, Time and Situation Level of Consciousness: Awake Patient Behavior: Guarded, Talkative, Cooperative, Suspicious, Anxious, Fatigued, Distractible and Good Eye Contact Mood Description: Apathetic, Withdrawn, Depressed and Anxious Affect Description: Withdrawn and Constricted Patient Cognition Impaired: No Ability to Follow Directions: Good Speech Pattern: Clear, Perseverating, Spontaneous Speech, Soft-Spoken and Delayed Memory Description: Episodic Impaired Hallucinations: None Delusions: Not Present Thought Process: Intact Thought Content: negative for Suicidal Ideation and negative for Homicidal Ideation Diagnostics Vital Signs (24Hr): Vital Signs - 24 hr 12/31/20 19:00 01/01/21 06:30 Temperature 98.2 F 98.1 F Pulse Rate 70 58 Respiratory Rate 14 Blood Pressure 102/51 L 104/54 L Pulse Oximetry 98 Body Mass Index 21.2 Labs Results: 12/29/20 08:27 12/29/20 08:27 Labs: Laboratory Results - last 48 hr 12/31/20 12/31/20 08:16 08:16 Fasting Glucose 82 Estimat Average Glucose 94 Hemoglobin A1c % 4.9 Triglycerides 60 Cholesterol 190 LDL Cholesterol, Calc 114 HDL Cholesterol 64 TSH 0.64 Valproic Acid 28.8 L Medications Medications Current Medications Generic Name Dose Route Start Last Admin Trade Name Freq PRN Reason Stop Dose Admin Acetaminophen 650 mg 12/29/20 21:05 Acetaminophen 325 Mg Tablet PO Q6H PRN Headache/Pain Mild Scale (1-3) Al Hydroxide/Mg Hydroxide 30 ml 12/29/20 21:05 Magnesium Hydrox/Alum Hydrox 30 Ml Oral.Susp PO Q6H PRN Heartburn/Nausea Divalproex Sodium 500 mg 12/29/20 21:00 12/31/20 20:22 Divalproex Sodium Er 500 Mg Tab.Er.24h PO 500 mg BEDTIME YUDITH Administration Ferrous Sulfate 324 mg 12/31/20 09:00 01/01/21 09:08 Ferrous Sulfate 324 Mg Tablet.Dr PO 324 mg DAILY YUDITH Administration Hydroxyzine HCl 25 mg 12/29/20 21:05 Hydroxyzine Hcl 25 Mg Tablet PO BEDTIME PRN Anxiety Magnesium Hydroxide 30 ml 12/29/20 21:05 Milk Of Magnesia 30 Ml Oral.Susp PO DAILY PRN Constipation Mirtazapine 15 mg 12/29/20 21:00 12/31/20 20:21 Mirtazapine 15 Mg Tablet PO 15 mg BEDTIME YUDITH Administration Naltrexone HCl 50 mg 12/30/20 09:00 01/01/21 09:08 Naltrexone Hcl 50 Mg Tablet PO 50 mg DAILY YUDITH Administration Nicotine 21 mg 01/01/21 13:47 01/01/21 14:02 Nicotine 21 Mg Patch.Td24 TRANSDERMA 21 mg DAILY YUDITH Administration Nicotine Polacrilex 2 mg 12/29/20 21:05 Nicotine Polacrilex 2 Mg Gum BUCCAL Q2H PRN Nicotine Cravings Paliperidone 6 mg 12/29/20 11:15 01/01/21 09:08 Paliperidone Er 6 Mg Tab.Er.24 PO 6 mg DAILY YUDITH Administration Pharmacy Consult 1 each 12/29/20 08:44 Consult Rx Perform Med Rec MISCELLANE ONCE PRN Consult order Trazodone HCl 50 mg 12/29/20 21:05 Trazodone Hcl 50 Mg Tablet PO BEDTIME PRN Insomnia Allergies Allergies Allergy/AdvReac Type Severity Reaction Status Date / Time haloperidol [From HALDOL] Allergy Mild DROWSY Verified 11/06/20 20:26 From HALDOL Allergy Mild DROWSY Uncoded 07/28/20 17:43 From SEROQUEL Allergy Mild AUDITORY Uncoded 07/28/20 17:43 HALLUCINATIONS Assessment & Plan Assessment & Plan (1) Mild anemia: Status: Acute Code(s): D64.9 - Anemia, unspecified (2) Cannabis use disorder, moderate, dependence: Status: Acute Code(s): F12.20 - Cannabis dependence, uncomplicated (3) Cocaine use disorder: Status: Acute Code(s): F14.10 - Cocaine abuse, uncomplicated (4) Schizoaffective disorder: Qualifiers: Schizoaffective disorder type: unspecified Qualified Code(s): F25.9 - Schizoaffective disorder, unspecified Status: Acute Code(s): F25.9 - Schizoaffective disorder, unspecified (5) Depression: Qualifiers: Active/Remission status: currently active Depression Type: major depressive disorder Major depression episode severity: severe Major depression recurrence: recurrent Psychotic features: without psychotic features Qualified Code(s): F33.2 - Major depressive disorder, recurrent severe without psychotic features Status: Acute Code(s): F32.9 - Major depressive disorder, single episode, unspecified Assessment and Plan: Ferrous Sulfate 324 mg daily Labs ordered - Pt interested in [place] [facility] -Re-establish regime of Invega, Valproate, Mirtazapine, Naltrexone -Milieu therapy, psychopharmacology, re-establish out patient alliances and residential treatment No change to above plan Greater than 50% of the session was spent on counseling and/or coordination of care Patient educated on: diagnosis, medication risk/benefits and substance abuse Informed Consent: further education needed Reason for contiued inpatient stay Substantial Risk for: inability to function
[2021-01-01] MEDS: Mirtazapine 15 MG TABLET PO (21:28)
[2021-01-01] MEDS: Divalproex Sodium ER 500 MG TAB.ER.24H PO (21:28)
[2021-01-02 03:53] LABS: Folate 12.9 ng/mL (> or = 4.0); Vitamin B12 498 pg/mL (200-900)
[2021-01-02 06:10] VITALS: BP 108/64; PULSE 72; RESP 18; TEMP 37.1; O2SAT 97
[2021-01-02] MEDS: Paliperidone ER 6 MG TAB.ER.24 PO (09:31)
[2021-01-02] MEDS: Nicotine 21 MG PATCH.TD24 TRANSDERMA (09:31)
[2021-01-02] MEDS: Naltrexone HCl 50 MG TABLET PO (09:31)
[2021-01-02] MEDS: Ferrous Sulfate 324 MG TABLET.DR PO (09:31)
[2021-01-02 16:30] VITALS: BP 100/57; PULSE 69; TEMP 36.6
--- NOTE | 2021-01-02 18:59 | P.PNPSI_ITS ---
Subjective Subjective Date of Service: 01/02/21 Reason For Visit: Schizoaffective Disorder Subjective Notes: Conditional Voluntary Interim History: Pt requesting discharge. States she will be able to live with her father and describes his home as safe, healing, with privacy (will have her own room) and a better place for me to stay on track . Pt willing to have team talk with her father to validate this plan and assess if appropriate. 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 She discussed how difficult it has been for her over the year to work with a telehealth model vs. in person care. Denies sx with re-titration of medications. Medication Compliance: Yes Side effects from medications: No Attending Groups: No Review of Systems Review of Systems Yes all other systems are reviewed and are negative (pt denies current symptoms) Psychiatric: Reports anxiety, Reports irritability and Reports mood swings Mental Status Exam Mental Status Exam Patient Appearance: Appropriate Patient Orientation: Person, Place, Time and Situation Level of Consciousness: Awake and Alert Patient Behavior: Appropriate, Talkative, Restless and Anxious Mood Description: Labile Affect Description: Labile Patient Cognition Impaired: No Ability to Follow Directions: Good Speech Pattern: Spontaneous Speech, Loud (at times) and Pressured (at times) Memory Description: Episodic Impaired Hallucinations: None Delusions: Not Present Thought Process: Intact Thought Content: positive for [place], positive for Circumstantial and positive for Suicidal Ideation (denies SI plan or intent) Depressive Symptoms: Increased Anxiety Judgement: Good Diagnostics Vital Signs (24Hr): Vital Signs - 24 hr 01/02/21 06:10 Temperature 98.8 F Pulse Rate 72 Respiratory Rate 18 Blood Pressure 108/64 Pulse Oximetry 97 Body Mass Index 21.2 Labs Results: 12/29/20 08:27 12/29/20 08:27 Labs: Laboratory Results - last 48 hr 12/31/20 08:16 Vitamin B12 498 Folate 12.9 Medications Medications Current Medications Generic Name Dose Route Start Last Admin Trade Name Freq PRN Reason Stop Dose Admin Acetaminophen 650 mg 12/29/20 21:05 Acetaminophen 325 Mg Tablet PO Q6H PRN Headache/Pain Mild Scale (1-3) Al Hydroxide/Mg Hydroxide 30 ml 12/29/20 21:05 Magnesium Hydrox/Alum Hydrox 30 Ml Oral.Susp PO Q6H PRN Heartburn/Nausea Divalproex Sodium 500 mg 12/29/20 21:00 01/01/21 21:28 Divalproex Sodium Er 500 Mg Tab.Er.24h PO 500 mg BEDTIME YUDITH Administration Ferrous Sulfate 324 mg 12/31/20 09:00 01/02/21 09:31 Ferrous Sulfate 324 Mg Tablet.Dr PO 324 mg DAILY YUDITH Administration Hydroxyzine HCl 25 mg 12/29/20 21:05 Hydroxyzine Hcl 25 Mg Tablet PO BEDTIME PRN Anxiety Magnesium Hydroxide 30 ml 12/29/20 21:05 Milk Of Magnesia 30 Ml Oral.Susp PO DAILY PRN Constipation Mirtazapine 15 mg 12/29/20 21:00 01/01/21 21:28 Mirtazapine 15 Mg Tablet PO 15 mg BEDTIME YUDITH Administration Naltrexone HCl 50 mg 12/30/20 09:00 01/02/21 09:31 Naltrexone Hcl 50 Mg Tablet PO 50 mg DAILY YUDITH Administration Nicotine 21 mg 01/01/21 13:47 01/02/21 09:31 Nicotine 21 Mg Patch.Td24 TRANSDERMA 21 mg DAILY YUDITH Administration Nicotine Polacrilex 2 mg 12/29/20 21:05 Nicotine Polacrilex 2 Mg Gum BUCCAL Q2H PRN Nicotine Cravings Paliperidone 6 mg 12/29/20 11:15 01/02/21 09:31 Paliperidone Er 6 Mg Tab.Er.24 PO 6 mg DAILY YUDITH Administration Pharmacy Consult 1 each 12/29/20 08:44 Consult Rx Perform Med Rec MISCELLANE ONCE PRN Consult order Trazodone HCl 50 mg 12/29/20 21:05 Trazodone Hcl 50 Mg Tablet PO BEDTIME PRN Insomnia Allergies Allergies Allergy/AdvReac Type Severity Reaction Status Date / Time haloperidol [From HALDOL] Allergy Mild DROWSY Verified 11/06/20 20:26 From HALDOL Allergy Mild DROWSY Uncoded 07/28/20 17:43 From SEROQUEL Allergy Mild AUDITORY Uncoded 07/28/20 17:43 HALLUCINATIONS Assessment & Plan Assessment & Plan (1) Cannabis use disorder, moderate, dependence: Status: Acute Code(s): F12.20 - Cannabis dependence, uncomplicated (2) Schizoaffective disorder: Qualifiers: Schizoaffective disorder type: unspecified Qualified Code(s): F25.9 - Schizoaffective disorder, unspecified Status: Acute Code(s): F25.9 - Schizoaffective disorder, unspecified Assessment and Plan: -Continue current plan of care -Working toward discharge on 01/31/21 Greater than 50% of the session was spent on counseling and/or coordination of care Reason for contiued inpatient stay Substantial Risk for: harm to self, inability to function and rapid decompensation
[2021-01-02] MEDS: Mirtazapine 15 MG TABLET PO (22:06)
[2021-01-02] MEDS: Divalproex Sodium ER 500 MG TAB.ER.24H PO (22:06)
[2021-01-03 06:45] VITALS: BP 92/71; PULSE 82; RESP 18; TEMP 36.3; O2SAT 100
--- NOTE | 2021-01-03 08:04 | P.DS_ITS ---
DS: Providers Provider Date of Service: 01/14/21 Date of admission: 12/29/20 21:05 Date of discharge: 01/03/21 Primary care physician: None Physician Admitting clinician: Amaris Jennings Attending physician on admission: Pierre Perez Consults: 12/29/20 08:18 Consult to Crisis Stat Reason for consultation: SI Has provider been notified: Yes Attending physician on discharge: Pierre Perez Discharging clinician: Amaris Jennings DS: Diagnosis Discharge Diagnosis (1) Cannabis use disorder, moderate, dependence: Status: Acute (2) Schizoaffective disorder: Status: Acute Problem details: 40 yo female, homeless, with a history of schizoaffective disorder, cannabis, cocaine and alcohol use disorder presents reporting an increase in depressive sx and SI. Pt reports recent discharge from [place] with relapse, medication non compliance, SIBS and perceptual alterations. (3) Cocaine use disorder: Status: Acute (4) Mild anemia: Status: Acute DS: Medications Discharge Medications Home Medications: Home Medications Medication Instructions Recorded Confirmed divalproex [Depakote ER] 500 mg PO BEDTIME 12/29/20 12/29/20 mirtazapine 15 mg PO BEDTIME 12/29/20 12/29/20 naltrexone 50 mg PO DAILY 12/29/20 12/29/20 paliperidone [Invega] 6 mg PO QAM 12/29/20 12/29/20 Discharge Plan Discharge Anticipated Discharge Date/Time: 01/03/21 14:00 Patient Disposition: Home, Self-Care Referrals: [facility] [Other] (Walk in if needed.) [facility] (Intake) [Other] (You will remain on the wait list for several days. Call to check on bed availability if interested in residential treatment) [place] [facility] (Intake) [Other] (You will remain on the wait list for several days. Call to check on bed availability if interested in residential elaine atment) Kedar Waldron (psychiatrist) [Other] - 02/08/21 2:00 pm (Telehealth appointment) Melinda Page ([facility]) [Other] (Your bridge ironworker helper, Angelica, will follow up with you at home for regular check-ins) Discharge Medications: New nicotine 21 mg/24 hr Patch 24 Hour 21 mg transdermal DAILY Qty: 30 RF: 0 ferrous sulfate 324 mg (65 mg iron) Tablet,Delayed Release (Dr/Ec) 324 mg PO DAILY Qty: 30 RF: 0 Continued naltrexone 50 mg Tablet 50 mg PO DAILY Qty: 30 RF: 0 divalproex [Depakote ER] 500 mg Tablet Extended Release 24 Hr 500 mg PO BEDTIME Qty: 30 RF: 0 mirtazapine 15 mg Tablet 15 mg PO BEDTIME Qty: 30 RF: 0 paliperidone [Invega] 6 mg Tablet Extended Release 24hr 6 mg PO QAM Qty: 30 RF: 0 Discharge Orders: Discharge Order (Routine); Ordered 01/03/21 Ordered By: Amaris Jennings Diet: advance to usual diet Activity on Discharge: As tolerated Stand Alone Forms: Patient Portal Discharge page, Community Support Care Plan Goals: mood stability abstinence from substance use Health Concerns: anemia-supplementation ordered Crack cocaine cannabis use disorder Schizoaffective disorder Plan of Treatment: Attend all appointments Take medications as directed Attend addiction [id number] are available via computer/phone currently Discharge Date/Time: 01/03/21 14:01 Mental Status Exam Mental Status Exam Patient Appearance: Appropriate Patient Orientation: Person, Place, Time and Situation Level of Consciousness: Awake and Alert Patient Behavior: Appropriate and Talkative Mood Description: Calm Affect Description: Flat Patient Cognition Impaired: No Ability to Follow Directions: Good Speech Pattern: Spontaneous Speech Memory Description: Intact Hallucinations: None Delusions: Not Present Thought Process: Intact Thought Content: positive for Intact Judgement: Good Data Data Completed and Pending Completed studies during hospitalization [Text1]: 12/29/20 12/29/20 12/29/20 08:27 08:27 08:27 WBC 9.6 RBC 4.29 Hgb 11.5 L Hct 35.6 L MCV 83.0 MCH 26.8 L MCHC 32.3 RDW 15.5 Plt Count 357 MPV 8.9 L Immature Gran % (Auto) 0.1 Neut % (Auto) 58.6 Lymph % (Auto) 32.0 [place] % (Auto) 8.3 Eos % (Auto) 0.7 Baso % (Auto) 0.3 Lymph # (Auto) 3.1 [place] # (Auto) 0.8 Eos # (Auto) 0.1 Baso # (Auto) 0.0 Abs Immat Gran (auto) 0.01 Absolute Neuts (auto) 5.6 Absolute Nucleated RBC 0.000 Nucleated RBC % (auto) 0.0 Sodium 140 Potassium 4.0 Chloride 107 Carbon Dioxide 25 Anion Gap 12 BUN 8 L Creatinine 0.75 Estim Creat Clear Calc 83.3 Estimated GFR > 60 Random Glucose 89 Fasting Glucose Estimat Average Glucose Hemoglobin A1c % Calcium 8.9 Total Bilirubin 0.3 AST 22 ALT 17 Alkaline Phosphatase 46 Total Protein 7.2 Albumin 4.3 Triglycerides Cholesterol LDL Cholesterol, Calc HDL Cholesterol Vitamin B12 Folate TSH Urine Test Salicylates < 5.0 L Urine Opiates Screen Acetaminophen < 1 Ur Barbiturates Screen Valproic Acid Ur Phencyclidine Scrn Ur Amphetamines Screen U Benzodiazepines Scrn Urine Cocaine Screen U Marijuana (THC) Screen Ethyl Alcohol < 10 COVID-19 (VAISHNAVI) COVIDLaunchups 12/29/20 12/29/20 12/29/20 09:29 13:00 13:10 WBC RBC Hgb Hct MCV MCH MCHC RDW Plt Count MPV Immature Gran % (Auto) Neut % (Auto) Lymph % (Auto) [place] % (Auto) Eos % (Auto) Baso % (Auto) Lymph # (Auto) [place] # (Auto) Eos # (Auto) Baso # (Auto) Abs Immat Gran (auto) Absolute Neuts (auto) Absolute Nucleated RBC Nucleated RBC % (auto) Sodium Potassium Chloride Carbon Dioxide Anion Gap BUN Creatinine Estim Creat Clear Calc Estimated GFR Random Glucose Fasting Glucose Estimat Average Glucose Hemoglobin A1c % Calcium Total Bilirubin AST ALT Alkaline Phosphatase Total Protein Albumin Triglycerides Cholesterol LDL Cholesterol, Calc HDL Cholesterol Vitamin B12 Folate TSH Urine Test NEGATIVE Salicylates Urine Opiates Screen Not Detected Acetaminophen Ur Barbiturates Screen Not Detected Valproic Acid Ur Phencyclidine Scrn Not Detected Ur Amphetamines Screen Not Detected U Benzodiazepines Scrn Not Detected Urine Cocaine Screen POSITIVE H U Marijuana (THC) Screen POSITIVE H Ethyl Alcohol COVID-19 (VAISHNAVI) Negative COVID-[facility]ious Hat See Note 12/31/20 12/31/20 12/31/20 08:16 08:16 08:16 WBC RBC Hgb Hct MCV MCH MCHC RDW Plt Count MPV Immature Gran % (Auto) Neut % (Auto) Lymph % (Auto) [place] % (Auto) Eos % (Auto) Baso % (Auto) Lymph # (Auto) [place] # (Auto) Eos # (Auto) Baso # (Auto) Abs Immat Gran (auto) Absolute Neuts (auto) Absolute Nucleated RBC Nucleated RBC % (auto) Sodium Potassium Chloride Carbon Dioxide Anion Gap BUN Creatinine Estim Creat Clear Calc Estimated GFR Random Glucose Fasting Glucose 82 Estimat Average Glucose 94 Hemoglobin A1c % 4.9 Calcium Total Bilirubin AST ALT Alkaline Phosphatase Total Protein Albumin Triglycerides 60 Cholesterol 190 LDL Cholesterol, Calc 114 HDL Cholesterol 64 Vitamin B12 498 Folate 12.9 TSH 0.64 Urine Test Salicylates Urine Opiates Screen Acetaminophen Ur Barbiturates Screen Valproic Acid 28.8 L Ur Phencyclidine Scrn Ur Amphetamines Screen U Benzodiazepines Scrn Urine Cocaine Screen U Marijuana (THC) Screen Ethyl Alcohol COVID-19 (VAISHNAVI) COVID-19 Clin Com DS: Summary Hospital Course Hospital Course: Pt was admitted on a conditional voluntary status. This was one of many admissions where she requests to re-establish her regime and discharges promptly. We were in contact with her out patient team. She worked with the [facility] team to re-establish her medication regime and decided that she would accept an offer to return to live with her father, who spoke with the team and validated this plan. 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 Pt did have a mild anemia on labs and agreed to ferrous sulfate trial. Time spent discussing smoking cessation with patient: 3 to 10 minutes Status at Discharge Cognitive/behavioral status at discharge: alert, fully oriented, denies SI, HI, no evidence of psychosis, affect and mood are calm,flat Functional status at discharge: independent ambulation Overall status at discharge: patient is back to baseline Time Spent with Patient Time attestation: Total time spent providing and/or coordinating discharge services: Time spent: Greater than 30 minutes
[2021-01-03] MEDS: Naltrexone HCl 50 MG TABLET PO (08:39)
[2021-01-03] MEDS: Ferrous Sulfate 324 MG TABLET.DR PO (08:39)
[2021-01-03] MEDS: Paliperidone ER 6 MG TAB.ER.24 PO (08:40)
[2021-01-03] MEDS: Nicotine 21 MG PATCH.TD24 TRANSDERMA (08:41)
--- NOTE | 2021-01-03 11:00 | MHC.RECOVSUP ---
? Reason for consult:Continuity of care o Current location:[id number] o Identified substance use concern: Crack cocaine and ETOH - Withdrawal ) - Support ? Intervention: o MAT started or to be started o Community resources provided o Harm reduction discussion ? Plan: o Referral to [facility] o Patient to follow up with [facility] after discharge ? Additional information: Patiient referred to [facility].
== END 2021-01-03 14:01 | disposition home or self-care (01) | DRG 750 ==
LOC: HO.ED 19:09 → HO.PM5 21:12
PROVIDERS: Admitting Provider Psychiatry & Neurology Psychiatry; Emergency Provider Emergency Medicine; Visit Provider Clinical Nurse Specialist Psychiatric/Mental Health, Adult
DX: F25.9 Schizoaffective disorder, unspecified (principal); R45.851 Suicidal ideations; F17.210 Nicotine dependence, cigarettes, uncomplicated; Z20.822 Contact with and (suspected) exposure to COVID-19; F32.9 Major depressive disorder, single episode, unspecified; D64.9 Anemia, unspecified; F12.20 Cannabis dependence, uncomplicated; F14.10 Cocaine abuse, uncomplicated; Z91.5 Personal history of self-harm; Z71.6 Tobacco abuse counseling; Z79.899 Other long term (current) drug therapy
CPT/HCPCS: 36415; 80053; 80061; 80143; 80164; 80179; 80307; 80320; 81025; 82607; 82746; 82947; 83036; 84443; 85025; 87635; 93005; 99285

== ENCOUNTER 2021-02-21 08:15 | Emergency (ER) | payer OTHER, SELFPAY ==
--- NOTE | 2021-02-21 08:44 | ED.PSYCH ---
HPI - Psych General Chief Complaint: Psychiatric Symptoms Stated Complaint: crisis - si Time Seen by Provider: 02/21/21 08:44 Source: patient Mode of arrival: ambulatory Limitations: no limitations History of Present Illness HPI Narrative: Increased voices telling her to kill herself. Patient is thinking about jumping off of a bridge. Last used crack and alcohol to hurt herself last night. last admitted 2 weeks ago MD complaint: suicidal ideation, feels depressed, anxiety and substance abuse Onset (ago): month(s) Duration: constant History of same: Yes Context: recent alcohol abuse and recent drug abuse Associated psychiatric symptoms: depression, suicidal ideation and auditory hallucinations Associated symptoms: denies other symptoms Related Data Previous Rx's Medication Instructions Recorded divalproex [Depakote ER] 500 mg PO BEDTIME #30 tab 01/03/21 ferrous sulfate 324 mg PO DAILY #30 tab 01/03/21 mirtazapine 15 mg PO BEDTIME #30 tab 01/03/21 naltrexone 50 mg PO DAILY #30 tab 01/03/21 nicotine 21 mg TRANSDERMAL DAILY #30 ea 01/03/21 paliperidone [Invega] 6 mg PO QAM #30 tab 01/03/21 Allergies Allergy/AdvReac Type Severity Reaction Status Date / Time haloperidol [From HALDOL] Allergy Mild DROWSY Verified 11/06/20 20:26 From HALDOL Allergy Mild DROWSY Uncoded 07/28/20 17:43 From SEROQUEL Allergy Mild AUDITORY Uncoded 07/28/20 17:43 HALLUCINATIONS Review of Systems Constitutional: Constitutional: Reports no additional constitutional complaints Eyes: Eyes: Reports no additional eye complaints ENT: Denies dizziness Cardiovascular: Cardiovascular: Reports no additional cardiovascular complaints Respiratory: Respiratory: Reports as per HPI Gastrointestinal: Gastrointestinal: Reports no additional gastrointestinal complaints Genitourinary: Genitourinary: Reports no additional female genitourinary complaints Musculoskeletal: Musculoskeletal: Reports no additional musculoskeletal complaints Integumentary/Breasts: Skin/Breast: Denies rash Neurologic: Reports system reviewed and no additional complaints, except as documented, Denies dizziness and Denies Sensory deficit (Neuro) Psychiatric: Psychiatric: Denies anxiety PMFSH Past Medical History Medical History Cannabis use disorder, moderate, dependence Cocaine use disorder Schizoaffective disorder Social History Social History Household Members: None Housing: Homeless Alcohol intake: current Smoking Status: Current every day smoker Tobacco Type: Cigarette Packs Per Day: 1 Cigarettes Per Day: 20.0 Years Smoked: 5 Second Hand Smoke Exposure: No Use of substances other than those prescribed or required for medical reasons: Yes Substance Use Type: Crack/Cocaine Advance Directives: No service: No Sexual orientation: did not discuss Physical Exam Vital Signs: Vital Signs: Last Vital Signs Temp 97.9 F 02/21/21 15:02 Pulse 76 02/21/21 15:02 Resp 18 02/21/21 15:02 BP 109/65 02/21/21 15:02 Pulse Ox 97 02/21/21 15:02 Body Mass Index 23.9 Const: Other: unkept appearing General: healthy appearing Nutritional Appearance: average body habitus Orientation/consciousness: oriented to person and patient oriented x3 Limitations: no limitations HENMT: Head: Yes normal to inspection Ears: external ears normal General nose exam: Normal external nose present Mouth: Normal oral and palatal mucosa present and oropharynx normal Throat: Yes posterior oropharynx normal Eyes: General: appearance normal, both eyes and all related structures Neck: Other: supple Neck: Yes normal visual inspection Chest: Chest palpation & inspection: normal inspection of the chest Resp: Auscultation: clear to auscultation bilaterally Cardio: Jugular venous distension: no JVD Rate: regular rate Rhythm: regular rhythm Heart sounds: S1 normal heart sound present and S2 normal heart sound present GI: Inspection: Yes normal to inspection Palpation (GI): Soft to palpation, nontender and No hepatosplenomegaly present Auscultation: normal bowel sounds : General: Yes no CVA tenderness Back/Spine/Pelvis: Back: no CVA tenderness Skin: General skin exam: no rashes or lesions noted Neuro: General: oriented to person and patient oriented x3 Cranial nerves: Yes CN's II-XII intact bilaterally Motor exam (neuro): 5/5 motor strength present throughout Sensory Exam: No Sensory deficit (Neuro) Extrem: General: Yes normal to inspection Psych: Appearance: grossly normal Course Course Course Narrative: patient had to be medicated with ativan for agitation Reevaluation(s) Reevaluation #1: Patient placed in physician observation at 4:20pm The indication for observation is that the patient needs more time to see if his depression improves or she will need to be admitted. At this time the patient is well developed well nourished, lungs clear, CV RRR, abd nontender, neuro is intact MDM - Psych Lab Data Result diagrams: 02/21/21 14:29 02/21/21 14:29 Labs: Lab Results 02/21/21 02/21/21 02/21/21 Range/Units 14:29 14:29 14:29 WBC 5.4 (4.8-10.8) X10*3/uL RBC 4.08 L (4.20-5.50) X10*6/uL Hgb 10.9 L (12.0-16.0) g/dl Hct 34.6 L (37-47) % MCV 84.8 (80-98) fL MCH 26.7 L (27.0-33.0) pg MCHC 31.5 (31.0-35.0) g/dl RDW 15.7 (11.0-16.0) % Plt Count 311 (160-400) X10*3/uL MPV 9.1 L (9.4-12.3) fL Immature Gran % (Auto) 0.2 (0.0-0.4) % Neut % (Auto) 44.9 L (45-73) % Lymph % (Auto) 38.2 (20-40) % [place] % (Auto) 7.6 (2-11) % Eos % (Auto) 8.5 H (0-4) % Baso % (Auto) 0.6 (0-2) % Lymph # (Auto) 2.1 (1.2-4.9) X10*3/uL [place] # (Auto) 0.4 (0.1-1.2) X10*3/uL Eos # (Auto) 0.5 H (0.0-0.4) X10*3/uL Baso # (Auto) 0.0 (0.0-0.2) X10*3/uL Abs Immat Gran (auto) 0.01 (0.00-0.03) X10*3/uL Absolute Neuts (auto) 2.4 (2.0-8.3) X10*3/uL Absolute Nucleated RBC 0.000 (0.0-0.012) X10*3/uL Nucleated RBC % (auto) 0.0 (0.0-0.2) /100WBC Sodium 141 (135-145) mmol/L Potassium 3.7 (3.3-5.1) mmol/L Chloride 108 (96-108) mmol/L Carbon Dioxide 25 (22-29) mmol/L Anion Gap 12 (12-20) BUN 9 (9-16) mg/dL Creatinine 0.74 (0.5-1.4) mg/dL Estim Creat Clear Calc 84.4 Estimated GFR > 60 Random Glucose 94 (60-115) mg/dL Calcium 9.1 (8.4-10.2) mg/dL Total Bilirubin 0.5 (0.0-1.0) mg/dL AST 14 (5-31) U/L ALT 9 (0-31) U/L Alkaline Phosphatase 43 (39-117) U/L Total Protein 6.0 L (6.5-8.0) g/dL Albumin 3.7 (3.5-5.0) g/dL Salicylates < 5.0 L (15-30) mg/dL Acetaminophen < 1 (<30) mcg/mL Ethyl Alcohol < 10 mg/dL Discharge Plan Discharge Prescriptions: No Action nicotine 21 mg/24 hr Patch 24 Hour 21 mg transdermal DAILY Qty: 30 RF: 0 ferrous sulfate 324 mg (65 mg iron) Tablet,Delayed Release (Dr/Ec) 324 mg PO DAILY Qty: 30 RF: 0 naltrexone 50 mg Tablet 50 mg PO DAILY Qty: 30 RF: 0 divalproex [Depakote ER] 500 mg Tablet Extended Release 24 Hr 500 mg PO BEDTIME Qty: 30 RF: 0 mirtazapine 15 mg Tablet 15 mg PO BEDTIME Qty: 30 RF: 0 paliperidone [Invega] 6 mg Tablet Extended Release 24hr 6 mg PO QAM Qty: 30 RF: 0
[2021-02-21 08:50] VITALS: BP 124/66; PULSE 60; RESP 14; TEMP 36.6; O2SAT 100; BMI 23.9
[2021-02-21 11:25] VITALS: BP 99/56; PULSE 70; RESP 21; TEMP 36.6; O2SAT 98
[2021-02-21] MEDS: LORazepam 2 MG/ML VIAL IM (11:40)
[2021-02-21 14:45] LABS: MANUAL DIFF FLAG NO
[2021-02-21 14:47] LABS: Basophils Percent Auto 0.6 % (0-2); Eosinophils Absolute Auto 0.5 X10*3/uL (0.0-0.4); Eosinophils Percent Auto 8.5 % (0-4); Hematocrit 34.6 % (37-47); Hemoglobin 10.9 g/dl (12.0-16.0); Imm Gran Abs Auto 0.01 X10*3/uL (0.00-0.03); Imm Gran Pct Auto 0.2 % (0.0-0.4); Lymphocytes Absolute Auto 2.1 X10*3/uL (1.2-4.9); Lymphocytes Percent Auto 38.2 % (20-40); Mean Corpuscular HGB Conc 31.5 g/dl (31.0-35.0); Mean Corpuscular Hemoglobin 26.7 pg (27.0-33.0); Mean Corpuscular Volume 84.8 fL (80-98); Mean Platelet Volume 9.1 fL (9.4-12.3); Monocytes Absolute Auto 0.4 X10*3/uL (0.1-1.2); Monocytes Percent Auto 7.6 % (2-11); Neutrophils Absolute Auto 2.4 X10*3/uL (2.0-8.3); Neutrophils Percent Auto 44.9 % (45-73); Platelet Count 311 X10*3/uL (160-400); Red Blood Count 4.08 X10*6/uL (4.20-5.50); Red Cell Distribution Width 15.7 % (11.0-16.0); White Blood Count 5.4 X10*3/uL (4.8-10.8)
--- NOTE | 2021-02-21 14:59 | PC.NURSE ---
pt amb ( I) gait steady to bathroom with security and pct. pt changed into hosp garment. belongings locked up in locker 11.
[2021-02-21 15:02] VITALS: BP 109/65; PULSE 76; RESP 18; TEMP 36.6; O2SAT 97
[2021-02-21 15:06] LABS: Ethanol < 10 mg/dL
[2021-02-21 15:08] LABS: Acetaminophen LAB < 1 mcg/mL (<30); Alanine Aminotransferase 9 U/L (0-31); Albumin Level 3.7 g/dL (3.5-5.0); Alkaline Phosphatase 43 U/L (39-117); Anion Gap 12 (12-20); Aspartate Amino Transferase 14 U/L (5-31); Bilirubin Total 0.5 mg/dL (0.0-1.0); Blood Urea Nitrogen 9 mg/dL (9-16); Calcium 9.1 mg/dL (8.4-10.2); Carbon Dioxide 25 mmol/L (22-29); Chloride 108 mmol/L (96-108); Creatinine Clr Calc Pharmacy 84.4; Estimated Glomerular Filt Rate > 60; Glucose Random 94 mg/dL (60-115); Potassium 3.7 mmol/L (3.3-5.1); Salicylate < 5.0 mg/dL (15-30); Sodium 141 mmol/L (135-145)
--- NOTE | 2021-02-21 16:42 | PC.NURSE ---
PT RESTING S/F IN BED, RR EVEN UNLABORED, SKIN WPD, NAD. FAXED AND CALLED TO N, JOSE VERIFIED RECEIPT OF FAX AND PT INFO, PT AWAITING N DELLA.
[2021-02-21 23:51] VITALS: BP 152/52; PULSE 70; RESP 18; TEMP 36.9; O2SAT 96
--- NOTE | 2021-02-22 00:13 | PC.NURSE ---
Patient just got transferred from main ED, gait intact, patient Covid swab/pending result, per report patient is awaiting for N, N called spoke with Kasandra reported they have not received referral, faxed/called again spoke with Kasandra confirmed receipt of referral, [facility] made aware patient has been here over 16 hours, patient appears sleeping, no distress observed/reported, will continue to monitor.
[2021-02-22 00:34] LABS: COVID-19 Test Negative (Negative)
--- NOTE | 2021-02-22 01:22 | PC.NURSE ---
MARILOU completed the assessment, disposition is voluntary bed search, patient and provider aware, will continue to monitor.
[2021-02-22 08:50] VITALS: BP 100/57; PULSE 80; RESP 16; TEMP 36.2; O2SAT 97
[2021-02-22] MEDS: Nicotine 21 MG PATCH.TD24 TRANSDERMA (09:54)
[2021-02-22] MEDS: Ferrous Sulfate 324 MG TABLET.DR PO (09:54)
[2021-02-22] MEDS: Naltrexone HCl 50 MG TABLET PO (09:55)
[2021-02-22] MEDS: risperiDONE 1 MG TABLET PO (09:55)
[2021-02-22 10:34] VITALS: BP 107/72; PULSE 69; RESP 16; O2SAT 98
[2021-02-22 10:47] LABS: Glucose Urine UA NEG (NEG); Leukocyte Esterase Urine TRACE (NEG); Nitrite Urine NEG (NEG); PH >= 9.0 (5.0-8.0); UACC Culture Trigger YES; UPreg QC Valid YES; Urine Blood NEG (NEG); Urine Ketones NEG (NEG); Urine Pregnancy NEGATIVE (NEGATIVE); Urine Protein TRACE MG/DL (NEG-TRACE)
[2021-02-22 10:48] LABS: Appearance Urine HAZY; Color Urine YELLOW
[2021-02-22 10:55] LABS: Bacteria Urine TRACE /LPF; RBC Urine 0 /HPF (0); Squamous Epithelial Cell Urine 3+ /LPF; UACC CULT YES
[2021-02-22 11:08] LABS: Amphetamine Screen Urine Not Detected (Not Detect); Barbiturates, Urine Not Detected (Not Detect); Benzodiazepines Screen Urine Not Detected (Not Detect); Cannabinoid Screen Urine POSITIVE (Not Detect); Cocaine Screen Urine POSITIVE (Not Detect); Opiate Screen Urine Not Detected (Not Detect); Phencyclidine Screen Urine Not Detected (Not Detect)
[2021-02-22 13:13] VITALS: BP 128/78; PULSE 60; O2SAT 99
--- NOTE | 2021-02-22 13:29 | PC.NURSE ---
pt states to this rn that she would like to leave. this rn called n and spoke with franchesca (rohit) who stated that bhn will be in the building after 1500 today or if the care team is available to assess/eval to make that decision of if the pt can be d/c or continue EATS bed search. pt states that something came up with her 12yr old son and she needs to leave. pt is aware of plan of care. pt is in the common area and back and forth to her bed.
[2021-02-22] MEDS: Acetaminophen 325 MG TABLET 650 MG PO (14:36)
--- NOTE | 2021-02-22 16:04 | MHC.CARE ---
Patient waiting in the ED for EATS placement in the ED since early this morning after being assessed by N Crisis. She was requesting updates today, became increasingly impatient with the process and asked to be discharged. N unable to return to see patient today. CARE team met with patient, she denied suicidal ideation, plan or intention?admitted, ?Just saying that,? yesterday. She reported that the last time she made an attempt was ten years ago. Stated she would still like to go to detox and would call on her own. [facility] staff member spoke to patient regarding her detox options and clarified that patient is struggling with addiction with cocaine (which is unusual to be accepted to a detox unit). Patient reported she will to go to her sister?s house today and that her sister knows to expect her in addition has outpatient providers through [facility] and will follow up. Spoke to patient?s provider who is in agreement with plan for discharge.
== END 2021-02-22 15:18 | disposition home or self-care (01) ==
PROVIDERS: Emergency Medicine Emergency Medical Services; Nurse Practitioner Primary Care; Emergency Provider Emergency Medicine
DX: R45.851 Suicidal ideations (principal); R44.0 Auditory hallucinations; R45.1 Restlessness and agitation; F32.9 Major depressive disorder, single episode, unspecified; F41.9 Anxiety disorder, unspecified; F14.10 Cocaine abuse, uncomplicated; F10.10 Alcohol abuse, uncomplicated; Y90.0 Blood alcohol level of less than 20 mg/100 ml; F12.20 Cannabis dependence, uncomplicated; Z20.822 Contact with and (suspected) exposure to COVID-19; F17.210 Nicotine dependence, cigarettes, uncomplicated
CPT/HCPCS: 36415; 80053; 80143; 80179; 80307; 80320; 81001; 81025; 85025; 87086; 87635; 96372; 99285; J2060

== ENCOUNTER 2021-03-20 08:30 | Inpatient (IN) | payer OTHER, SELFPAY ==
--- NOTE | 2021-03-20 08:46 | ED.PSYCH ---
HPI - Psych General Chief Complaint: Psychiatric Symptoms Stated Complaint: SI Time Seen by Provider: 03/20/21 08:36 Source: patient Mode of arrival: ambulatory Limitations: no limitations History of Present Illness HPI Narrative: 40 y/o female with history of schizoaffective disorder, depression, polysubstance abuse, depression with multiple visits for SI, reported hx of suidide attempts presenting to the ED with complaints of increased anxiety/depression with racing thoughts/suicidal ideations although no plan in place. Reports that she is currently using crack cocaine she smokes it and she also uses alcohol denies any additional drug usage. Reports that she last used approximately 3 days ago. Reports that she is not homeless. Denies any homicidal ideations, auditory or visual hallucinations. Denies any other symptoms complaints or concerns at this time. MD complaint: suicidal ideation, feels depressed, anxiety, substance abuse and alcohol abuse Onset (ago): day(s) (Three days worse today) Duration: constant and getting worse History of same: Yes Relieving factors: none Exacerbating factors: alcohol and drug use Context: recent alcohol abuse and recent drug abuse Associated psychiatric symptoms: depression, suicidal ideation and racing thoughts Associated symptoms: denies other symptoms Treatments prior to arrival: none If self harm: admits thoughts of self harm Related Data Home Medications Medication Instructions Recorded Confirmed hydroxyzine HCl 1 tab PO TID PRN 02/21/21 03/20/21 risperidone 1 tab PO BEDTIME 02/21/21 03/20/21 risperidone 1 tab PO QAM 03/20/21 03/20/21 Previous Rx's Medication Instructions Recorded divalproex [Depakote ER] 500 mg PO BEDTIME #30 tab 01/03/21 ferrous sulfate 324 mg PO DAILY #30 tab 01/03/21 mirtazapine 15 mg PO BEDTIME #30 tab 01/03/21 nicotine 21 mg TRANSDERMAL DAILY #30 ea 01/03/21 Allergies Allergy/AdvReac Type Severity Reaction Status Date / Time haloperidol [From HALDOL] Allergy Mild DROWSY Verified 11/06/20 20:26 From HALDOL Allergy Mild DROWSY Uncoded 07/28/20 17:43 From SEROQUEL Allergy Mild AUDITORY Uncoded 07/28/20 17:43 HALLUCINATIONS Review of Systems Review of Systems: Constitutional : No Fever, No Chills ENT/Mouth : No Ear Pain, No Nasal Congestion, No sore throat Eyes: No Eye Pain, No Swelling, No Redness Cardiovascular : No Chest Pain, No SOB Respiratory : No Cough, No Sputum, No Dyspnea Gastrointestinal : No ingestions, No Nausea, No Vomiting, No Diarrhea, No Hematochezia, No Melena Genitourinary : No Dysuria, No Urinary Frequency, No Hematuria Musculoskeletal : No Myalgias Skin : No Skin Lesions, No rash Neuro : No Weakness, No Numbness, No Paresthesias, No Dizziness, No Headache Psych : + Anxiety, + Depression, + SI, + thoughts of self injury, No HI, No AVH, Heme/Lymph: No Lymphadenopathy Endocrine : No Polyuria, No Polydipsia Yes all other systems are reviewed and are negative [facility] Past Medical History Attestation statement: The following information was validated with the patient. Medical History Cannabis use disorder, moderate, dependence Cocaine use disorder Schizoaffective disorder Social History Social History Household Members: None Household Members Other:: 0 Housing: Homeless Alcohol intake: current Smoking Status: Current every day smoker Tobacco Type: Cigarette Packs Per Day: 1 Cigarettes Per Day: 20.0 Years Smoked: 5 Second Hand Smoke Exposure: No Substance Use Type: Crack/Cocaine Advance Directives: No Advance Directives Information Provided: No service: No Sexual orientation: did not discuss Physical Exam Vital Signs: Vital Signs: Last Vital Signs Temp 97.5 F 03/20/21 09:29 Pulse 72 03/20/21 09:29 Resp 18 03/20/21 09:29 BP 111/65 03/20/21 09:29 Pulse Ox 100 03/20/21 09:29 Body Mass Index 19.3 vital signs have been reviewed as normal and appeared to be correct. Blood pressure normal. Heart rate normal. Respiration rate normal. Temperature normal. Oxygen saturation normal. Appearance: Alert. Oriented X3. No acute distress. Head: Normal external exam. Normocephalic. Atraumatic. No Contreras signs noted. No raccoon eyes noted Eyes: PERRLA. EOMI. Conjunctiva and sclera normal. Eyelids normal. ENT: EAC normal. TM's Normal. Pharynx normal. Uvula midline. Moist mucous membranes. No trismus noted. No drooling noted. No muffled voice noted. Neck: Normal inspection. Neck supple. FROM. No adenopathy. Thyroid Normal. No meningeal signs. No neck mass noted. CVS: Normal heart rate and rhythm. Heart sound normal. No murmurs noted. Pulses normal throughout. Respiratory: No respiratory distress. Painless inspiration. Breath sounds normal. No wheezes/rales/rhonchi noted. Chest nontender. No accessory muscle usage noted or decreased air movement noted. Abdomen: Soft and nontender. Bowel sounds normal in all 4 quadrants. No distention noted. No organomegaly noted. No visible injury noted. Back: No CVA tenderness. Full range of motion noted. Skin: Skin warm and dry. Normal skin color. Normal skin turgor. No rashes/lesions/lacerations noted. Extremities: No lower extremity edema. Extremities exhibit normal range of motion. Extremities nontender. Neuro: Oriented X 3. No motor deficit. No sensory deficit. Reflexes normal. Psych: Appearance grossly normal, well-kept, mental status normal, speech and movement normal, speech clear, patient appears very sad and anxious along with depressed. Is cooperative. Normal thought process. Normal thought content. Normal good insight. Judgment good. Course Course Course Narrative: 12:40pm - labs reviewed and patient with white blood cell count of 4000 otherwise all other labs are within normal limits. Serum quant negative for . UA within normal limits no evidence of UTI. Negative UHCG. Patient positive for cocaine and marijuana negative for all other drugs. Patient negative for EtOH. Negative for COVID on 03/20/2021. - therefore patient medically cleared at this time and is awaiting [facility] evaluation. Patient is placed in physician observation at this time because the patient needs more time to be evaluated by [facility] for the need of inpatient psychiatric rehabilitation. Patient is neuro intact. No focal neuro deficits are noted. Lungs clear to auscultation. Abdomen is soft nontender. Will continue to monitor as patient weighs N evaluation. MDM - Psych MDM Narrative Medical decision making narrative: 8:50am - 40 y/o female with history of schizoaffective disorder, depression, polysubstance abuse, depression with multiple visits for SI, reported hx of suidide attempts presenting to the ED with complaints of increased anxiety/depression with racing thoughts/suicidal ideations although no plan in place. Reports that she is currently using crack cocaine she smokes it and she also uses alcohol denies any additional drug usage. Reports that she last used approximately 3 days ago. Reports that she is not homeless. Denies any homicidal ideations, auditory or visual hallucinations. - Plan: Labs. Then once medically cleared will obtain a [facility] evaluation. Will continue to monitor and reassess. Lab Data Result diagrams: 03/20/21 11:36 03/20/21 11:36 Labs: Lab Results 03/20/21 03/20/21 03/20/21 Range/Units 10:08 10:08 10:08 WBC (4.8-10.8) X10*3/uL RBC (4.20-5.50) X10*6/uL Hgb (12.0-16.0) g/dl Hct (37-47) % MCV (80-98) fL MCH (27.0-33.0) pg MCHC (31.0-35.0) g/dl RDW (11.0-16.0) % Plt Count (160-400) X10*3/uL MPV (9.4-12.3) fL Immature Gran % (Auto) (0.0-0.4) % Neut % (Auto) (45-73) % Lymph % (Auto) (20-40) % [place] % (Auto) (2-11) % Eos % (Auto) (0-4) % Baso % (Auto) (0-2) % Lymph # (Auto) (1.2-4.9) X10*3/uL [place] # (Auto) (0.1-1.2) X10*3/uL Eos # (Auto) (0.0-0.4) X10*3/uL Baso # (Auto) (0.0-0.2) X10*3/uL Abs Immat Gran (auto) (0.00-0.03) X10*3/uL Absolute Neuts (auto) (2.0-8.3) X10*3/uL Absolute Nucleated RBC (0.0-0.012) X10*3/uL Nucleated RBC % (auto) (0.0-0.2) /100WBC Sodium (135-145) mmol/L Potassium (3.3-5.1) mmol/L Chloride (96-108) mmol/L Carbon Dioxide (22-29) mmol/L Anion Gap (12-20) BUN (9-16) mg/dL Creatinine (0.5-1.4) mg/dL Estim Creat Clear Calc Estimated GFR Random Glucose (60-115) mg/dL Calcium (8.4-10.2) mg/dL Magnesium (1.6-2.6) mg/dL Total Bilirubin (0.0-1.0) mg/dL AST (5-31) U/L ALT (0-31) U/L Alkaline Phosphatase (39-117) U/L Total Protein (6.5-8.0) g/dL Albumin (3.5-5.0) g/dL Beta HCG, Quant mIU/mL Urine Color YELLOW Urine Appearance HAZY Urine pH 8.5 H (5.0-8.0) Ur Specific [place] 1.020 (1.005-1.025) Urine Protein NEG (NEG-TRACE) MG/DL Urine Glucose (UA) NEG (NEG) MG/DL Urine Ketones NEG (NEG) MG/DL Urine Blood NEG (NEG) Urine Nitrite NEG (NEG) Ur Leukocyte Esterase NEG (NEG) Urine Test NEGATIVE (NEGATIVE) Urine Opiates Screen Not Detected (Not Detect) Ur Barbiturates Screen Not Detected (Not Detect) Ur Phencyclidine Scrn Not Detected (Not Detect) Ur Amphetamines Screen Not Detected (Not Detect) U Benzodiazepines Scrn Not Detected (Not Detect) Urine Cocaine Screen POSITIVE H (Not Detect) U Marijuana (THC) Screen POSITIVE H (Not Detect) Ethyl Alcohol mg/dL COVID-19 (VAISHNAVI) (Negative) COVID-19 Clin Com 03/20/21 03/20/21 03/20/21 Range/Units 11:36 11:36 11:36 WBC 4.6 L (4.8-10.8) X10*3/uL RBC 4.69 (4.20-5.50) X10*6/uL Hgb 12.9 (12.0-16.0) g/dl Hct 40.3 (37-47) % MCV 85.9 (80-98) fL MCH 27.5 (27.0-33.0) pg MCHC 32.0 (31.0-35.0) g/dl RDW 15.6 (11.0-16.0) % Plt Count 361 (160-400) X10*3/uL MPV 9.7 (9.4-12.3) fL Immature Gran % (Auto) 0.2 (0.0-0.4) % Neut % (Auto) 37.2 L (45-73) % Lymph % (Auto) 41.4 H (20-40) % [place] % (Auto) 8.5 (2-11) % Eos % (Auto) 11.8 H (0-4) % Baso % (Auto) 0.9 (0-2) % Lymph # (Auto) 1.9 (1.2-4.9) X10*3/uL [place] # (Auto) 0.4 (0.1-1.2) X10*3/uL Eos # (Auto) 0.5 H (0.0-0.4) X10*3/uL Baso # (Auto) 0.0 (0.0-0.2) X10*3/uL Abs Immat Gran (auto) 0.01 (0.00-0.03) X10*3/uL Absolute Neuts (auto) 1.7 L (2.0-8.3) X10*3/uL Absolute Nucleated RBC 0.000 (0.0-0.012) X10*3/uL Nucleated RBC % (auto) 0.0 (0.0-0.2) /100WBC Sodium 140 (135-145) mmol/L Potassium 4.4 (3.3-5.1) mmol/L Chloride 106 (96-108) mmol/L Carbon Dioxide 28 (22-29) mmol/L Anion Gap 10 L (12-20) BUN 12 (9-16) mg/dL Creatinine 1.00 (0.5-1.4) mg/dL Estim Creat Clear Calc 64.9 Estimated GFR > 60 Random Glucose 90 (60-115) mg/dL Calcium 9.3 (8.4-10.2) mg/dL Magnesium 2.1 (1.6-2.6) mg/dL Total Bilirubin 0.5 (0.0-1.0) mg/dL AST 13 (5-31) U/L ALT 11 (0-31) U/L Alkaline Phosphatase 45 (39-117) U/L Total Protein 7.1 (6.5-8.0) g/dL Albumin 4.1 (3.5-5.0) g/dL Beta HCG, Quant < 2 mIU/mL Urine Color Urine Appearance Urine pH (5.0-8.0) Ur Specific [place] (1.005-1.025) Urine Protein (NEG-TRACE) MG/DL Urine Glucose (UA) (NEG) MG/DL Urine Ketones (NEG) MG/DL Urine Blood (NEG) Urine Nitrite (NEG) Ur Leukocyte Esterase (NEG) Urine Test (NEGATIVE) Urine Opiates Screen (Not Detect) Ur Barbiturates Screen (Not Detect) Ur Phencyclidine Scrn (Not Detect) Ur Amphetamines Screen (Not Detect) U Benzodiazepines Scrn (Not Detect) Urine Cocaine Screen (Not Detect) U Marijuana (THC) Screen (Not Detect) Ethyl Alcohol < 10 mg/dL COVID-19 (VAISHNAVI) (Negative) COVID-19 Clin Com 03/20/21 Range/Units 11:36 WBC (4.8-10.8) X10*3/uL RBC (4.20-5.50) X10*6/uL Hgb (12.0-16.0) g/dl Hct (37-47) % MCV (80-98) fL MCH (27.0-33.0) pg MCHC (31.0-35.0) g/dl RDW (11.0-16.0) % Plt Count (160-400) X10*3/uL MPV (9.4-12.3) fL Immature Gran % (Auto) (0.0-0.4) % Neut % (Auto) (45-73) % Lymph % (Auto) (20-40) % [place] % (Auto) (2-11) % Eos % (Auto) (0-4) % Baso % (Auto) (0-2) % Lymph # (Auto) (1.2-4.9) X10*3/uL [place] # (Auto) (0.1-1.2) X10*3/uL Eos # (Auto) (0.0-0.4) X10*3/uL Baso # (Auto) (0.0-0.2) X10*3/uL Abs Immat Gran (auto) (0.00-0.03) X10*3/uL Absolute Neuts (auto) (2.0-8.3) X10*3/uL Absolute Nucleated RBC (0.0-0.012) X10*3/uL Nucleated RBC % (auto) (0.0-0.2) /100WBC Sodium (135-145) mmol/L Potassium (3.3-5.1) mmol/L Chloride (96-108) mmol/L Carbon Dioxide (22-29) mmol/L Anion Gap (12-20) BUN (9-16) mg/dL Creatinine (0.5-1.4) mg/dL Estim Creat Clear Calc Estimated GFR Random Glucose (60-115) mg/dL Calcium (8.4-10.2) mg/dL Magnesium (1.6-2.6) mg/dL Total Bilirubin (0.0-1.0) mg/dL AST (5-31) U/L ALT (0-31) U/L Alkaline Phosphatase (39-117) U/L Total Protein (6.5-8.0) g/dL Albumin (3.5-5.0) g/dL Beta HCG, Quant mIU/mL Urine Color Urine Appearance Urine pH (5.0-8.0) Ur Specific [place] (1.005-1.025) Urine Protein (NEG-TRACE) MG/DL Urine Glucose (UA) (NEG) MG/DL Urine Ketones (NEG) MG/DL Urine Blood (NEG) Urine Nitrite (NEG) Ur Leukocyte Esterase (NEG) Urine Test (NEGATIVE) Urine Opiates Screen (Not Detect) Ur Barbiturates Screen (Not Detect) Ur Phencyclidine Scrn (Not Detect) Ur Amphetamines Screen (Not Detect) U Benzodiazepines Scrn (Not Detect) Urine Cocaine Screen (Not Detect) U Marijuana (THC) Screen (Not Detect) Ethyl Alcohol mg/dL COVID-19 (VAISHNAVI) Negative (Negative) COVID-19 Clin Com See Note Discharge Plan Discharge Clinical Impression: Depression, Suicidal ideation, Acute anxiety Prescriptions: No Action nicotine 21 mg/24 hr Patch 24 Hour 21 mg transdermal DAILY Qty: 30 RF: 0 ferrous sulfate 324 mg (65 mg iron) Tablet,Delayed Release (Dr/Ec) 324 mg PO DAILY Qty: 30 RF: 0 divalproex [Depakote ER] 500 mg Tablet Extended Release 24 Hr 500 mg PO BEDTIME Qty: 30 RF: 0 mirtazapine 15 mg Tablet 15 mg PO BEDTIME Qty: 30 RF: 0 hydroxyzine HCl 50 mg tablet 1 tab PO TID PRN (Reason: anxiety) RF: 0 risperidone 3 mg tablet 1 tab PO BEDTIME RF: 0 risperidone 2 mg tablet 1 tab PO QAM RF: 0
[2021-03-20 09:29] VITALS: BP 111/65; PULSE 72; RESP 18; TEMP 36.4; O2SAT 100; BMI 19.3
[2021-03-20 10:30] LABS: Glucose Urine UA NEG (NEG); Leukocyte Esterase Urine NEG (NEG); Nitrite Urine NEG (NEG); PH 8.5 (5.0-8.0); Urine Blood NEG (NEG); Urine Ketones NEG (NEG); Urine Protein NEG (NEG-TRACE)
[2021-03-20 10:33] LABS: Appearance Urine HAZY; Color Urine YELLOW
[2021-03-20 10:49] LABS: Amphetamine Screen Urine Not Detected (Not Detect); Barbiturates, Urine Not Detected (Not Detect); Benzodiazepines Screen Urine Not Detected (Not Detect); Cannabinoid Screen Urine POSITIVE (Not Detect); Cocaine Screen Urine POSITIVE (Not Detect); Opiate Screen Urine Not Detected (Not Detect); Phencyclidine Screen Urine Not Detected (Not Detect)
[2021-03-20] MEDS: diphenhydrAMINE HCL 25 MG TABLET 50 MG PO (10:52)
[2021-03-20 11:42] LABS: UPreg QC Valid YES; Urine Pregnancy NEGATIVE (NEGATIVE)
[2021-03-20 11:47] LABS: MANUAL DIFF FLAG NO
[2021-03-20 11:50] LABS: Basophils Percent Auto 0.9 % (0-2); Eosinophils Absolute Auto 0.5 X10*3/uL (0.0-0.4); Eosinophils Percent Auto 11.8 % (0-4); Hematocrit 40.3 % (37-47); Hemoglobin 12.9 g/dl (12.0-16.0); Imm Gran Abs Auto 0.01 X10*3/uL (0.00-0.03); Imm Gran Pct Auto 0.2 % (0.0-0.4); Lymphocytes Absolute Auto 1.9 X10*3/uL (1.2-4.9); Lymphocytes Percent Auto 41.4 % (20-40); Mean Corpuscular Hemoglobin 27.5 pg (27.0-33.0); Mean Corpuscular Volume 85.9 fL (80-98); Mean Platelet Volume 9.7 fL (9.4-12.3); Monocytes Absolute Auto 0.4 X10*3/uL (0.1-1.2); Monocytes Percent Auto 8.5 % (2-11); Neutrophils Absolute Auto 1.7 X10*3/uL (2.0-8.3); Neutrophils Percent Auto 37.2 % (45-73); Platelet Count 361 X10*3/uL (160-400); Red Blood Count 4.69 X10*6/uL (4.20-5.50); Red Cell Distribution Width 15.6 % (11.0-16.0); White Blood Count 4.6 X10*3/uL (4.8-10.8)
[2021-03-20 12:09] LABS: COVID-19 Test Negative (Negative)
--- NOTE | 2021-03-20 12:09 | PC.NURSE ---
Report received. PT ambulated to pod with steady gait, denies complaints. PT to be seen by N.
[2021-03-20 12:10] LABS: Ethanol < 10 mg/dL
[2021-03-20 12:14] LABS: Alanine Aminotransferase 11 U/L (0-31); Albumin Level 4.1 g/dL (3.5-5.0); Alkaline Phosphatase 45 U/L (39-117); Anion Gap 10 (12-20); Aspartate Amino Transferase 13 U/L (5-31); Bilirubin Total 0.5 mg/dL (0.0-1.0); Blood Urea Nitrogen 12 mg/dL (9-16); Calcium 9.3 mg/dL (8.4-10.2); Carbon Dioxide 28 mmol/L (22-29); Chloride 106 mmol/L (96-108); Creatinine Clr Calc Pharmacy 64.9; Estimated Glomerular Filt Rate > 60; Glucose Random 90 mg/dL (60-115); Magnesium 2.1 mg/dL (1.6-2.6); Potassium 4.4 mmol/L (3.3-5.1); Sodium 140 mmol/L (135-145); Total Protein 7.1 g/dL (6.5-8.0)
--- NOTE | 2021-03-20 12:18 | PC.NURSE ---
t/w attempted to interview patient immediately after arrival to unit. patient was laying in bed, covered, facing away from t/w, i identified self and asked patient when she had arrived to ED. pt stared at this screenplay writer and responded im schizoaffective . i explained i had a few questions patient stared while i asked and appeared to decline to answer. t/w asked want to hurt yourself right now? yes . t/w asked you have an identified method? No patient laid still as i left room and turned light off.
[2021-03-20 12:20] LABS: HCG Quantitative < 2 mIU/mL
[2021-03-20 17:42] VITALS: BP 97/56; PULSE 77; RESP 20; TEMP 36.8; O2SAT 100
[2021-03-20] MEDS: Acetaminophen 325 MG TABLET 650 MG PO (18:06)
--- NOTE | 2021-03-20 18:37 | PC.NURSE ---
[facility] at bedside for eval
--- NOTE | 2021-03-20 19:12 | PC.NURSE ---
Report received. PT is resting in bed. Calm and cooperative. PT is inpatient bed search.
[2021-03-20] MEDS: Mirtazapine 15 MG TABLET PO (21:01)
[2021-03-20] MEDS: risperiDONE 3 MG TABLET PO (21:01)
[2021-03-20] MEDS: Divalproex Sodium ER 500 MG TAB.ER.24H PO (21:01)
[2021-03-21] VITALS: BP 105/54; PULSE 54; RESP 16; TEMP 36.1; O2SAT 96
--- NOTE | 2021-03-21 | ECG_ITS ---
Test Reason : MEDICAL CLEARANCE Blood Pressure : / mmHG Vent. Rate : 051 BPM Atrial Rate : 051 BPM P-R Int : 132 ms QRS Dur : 088 ms QT Int : 438 ms P-R-T Axes : 016 058 023 degrees QTc Int : 403 ms Sinus bradycardia Nonspecific T wave abnormality Abnormal ECG When compared with ECG of 29-DEC-2020 13:32, No significant change was found Referred By: Cammie Billingsley Electronically Signed By:Brent Marion
--- NOTE | 2021-03-21 06:55 | PC.NURSE ---
patient appears at rest present in no distress, presents with even unlabored breaths. received report from previous shift nurse, unremarkable
[2021-03-21] MEDS: Nicotine 21 MG PATCH.TD24 TRANSDERMA (08:29)
[2021-03-21] MEDS: Ferrous Sulfate 324 MG TABLET.DR PO (08:29)
[2021-03-21] MEDS: risperiDONE 2 MG TABLET PO (08:30)
--- NOTE | 2021-03-21 14:18 | PC.NURSE ---
Nurse to nurse completed with Cari from [facility].
[2021-03-21] MEDS: hydrOXYzine HCL 25 MG TABLET PO (15:58)
[2021-03-21 16:00] VITALS: BP 121/73; PULSE 79; TEMP 36.6; O2SAT 99
[2021-03-21] MEDS: LORazepam 1 MG TABLET PO (18:08)
[2021-03-21] MEDS: risperiDONE 3 MG TABLET PO (20:29)
[2021-03-21] MEDS: Mirtazapine 15 MG TABLET PO (20:29)
[2021-03-21] MEDS: Divalproex Sodium ER 250 MG TAB.ER.24H 750 MG PO (20:30)
[2021-03-22 00:09] VITALS: BMI 22.8
--- NOTE | 2021-03-22 00:47 | PC.ADMIT ---
A 40-year old, single female was admitted to [facility] at 1512 as a CV following referral from [facility] [place] and [facility]. [facility] [place] records indicate multiple admissions here and elsewhere. Pt presented to [facility] via ambulance with complaints of increased anxiety and depression with racing thoughts. Pt also c/o SI with visual hallucinations of people just walking around and command auditory hallucinations commanding her to kill herself. Pt reports SI w/o a plan. Pt said is able to seek out staff for help. Pt reports using crack cocaine and drinks Etoh 4 or more times weekly, but says only has one drink when does drink. Pt denied other substance use, but DELGADO was positive for cocaine and marijuana in the ED. Pt is reported to be homeless, but lives with her sister. Pt denies is homeless and plans to return to live with sister after discharge. Pt was calm and cooperative during admission, but did not want to continue after doing [place] [facility]. Pt reported auditory hallucinations to this wrietr early in admission; Colleen Oswald was informed and orders were obtained. Pt reported risperdal used to control the voices more effectively, but not as effective at present. Pt said risperdal and invega had helped in the past. Pt said had been on a long-acting IM antipsychotic medication, and expressed being open to this at this time as a means of taking medications consistently. Medical issues include only mild anemia. Pt had an EKG in ED that showed sinus bradycardia. Pt is on 15-minute safety checks and is resting in room at this time. [id number] done and admission orders obtained.
[2021-03-22] MEDS: hydrOXYzine HCL 50 MG TABLET PO ×2 (01:41→18:40)
[2021-03-22 06:00] VITALS: BP 108/62; PULSE 62; RESP 18; TEMP 36.8; O2SAT 96
[2021-03-22] MEDS: Nicotine 21 MG PATCH.TD24 TRANSDERMA (08:33)
[2021-03-22] MEDS: risperiDONE 2 MG TABLET PO (08:33)
[2021-03-22] MEDS: Ferrous Sulfate 324 MG TABLET.DR PO (08:33)
[2021-03-22 09:39] LABS: Thyroid Stimulating Hormone 0.21 uIU/mL (0.32-4.0)
[2021-03-22 12:26] LABS: Estimated Average Glucose 94 mg/dL; Hemoglobin A1c % 4.9 %
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
[2021-03-22] MEDS: Folic Acid 1 MG TABLET PO (15:41)
[2021-03-22] MEDS: Thiamine HCL 100 MG TABLET PO (15:41)
[2021-03-22] MEDS: risperiDONE 3 MG TABLET PO (20:36)
[2021-03-22] MEDS: Divalproex Sodium ER 250 MG TAB.ER.24H 750 MG PO (20:36)
[2021-03-22] MEDS: Mirtazapine 15 MG TABLET PO (20:36)
[2021-03-23 07:00] VITALS: BMI 23.1
[2021-03-23] MEDS: risperiDONE 2 MG TABLET PO (09:34)
[2021-03-23] MEDS: Folic Acid 1 MG TABLET PO (09:34)
[2021-03-23] MEDS: Nicotine 21 MG PATCH.TD24 TRANSDERMA (09:34)
[2021-03-23] MEDS: Ferrous Sulfate 324 MG TABLET.DR PO (09:35)
[2021-03-23] MEDS: Thiamine HCL 100 MG TABLET PO (09:35)
--- NOTE | 2021-03-23 11:17 | P.PNPSI_ITS ---
Subjective Subjective Date of Service: 03/23/21 Reason For Visit: SI Subjective Notes: Conditional Voluntary Interim History: I feel like I will on the street. My use is past my control. Please help me go to CSS. Discussed relapse with pt who reports this in the worst/most intense it has been. She reports she realizes the addiction now controls her and she needs structured programs to assist her in obtaining and maintaining sobriety. Tolerating Depakote increase. Asks that we send her directly to treatment from in-pt. States that she knows that she has no control and risks her life. Living with her father after last admission did not provide the structure needed to remain sober. Pt looking at a few CSS possibilities. Asking about Campral trial, which she has used prior with success. Medication Compliance: Yes Side effects from medications: No Attending Groups: Yes Review of Systems Review of Systems Yes all other systems are reviewed and are negative Reports behavioral changes Psychiatric: Reports anxiety, Reports behavioral changes, Reports depression, Reports difficulty concentrating, Reports auditory hallucinations, Reports hopelessness, Reports irritability, Reports anhedonia, Reports mood swings, Reports panic attacks, Reports paranoia and Reports suicidal ideation (denies at this time.) Endocrine: Reports other (TSH 0.21) Mental Status Exam Mental Status Exam Patient Appearance: Fatigued and Disheveled Patient Orientation: Person, Place, Time and Situation Level of Consciousness: Awake and Alert Patient Behavior: Talkative, Cooperative, Anxious, Fearful, Fatigued, Distractible and Good Eye Contact Mood Description: Withdrawn, Depressed, Anxious, Nervous and Apprehensive Affect Description: Anxious and Flat Patient Cognition Impaired: No Ability to Follow Directions: Good Speech Pattern: Spontaneous Speech and Soft-Spoken Memory Description: Intact Hallucinations: Auditory Thought Process: Rumination and Goal Oriented Thought Content: positive for Commerce, positive for Circumstantial, positive for Goal Oriented, positive for Perseveration and positive for Suicidal Ideation (denies today.) Depressive Symptoms: Increased Anxiety, Increased Irritability, Hopelessness, Unhappiness, Increased Fatigue, Thoughts of /Suicide (denies today), Low Self Esteem and Difficulty Concentrating Judgement: Fair Diagnostics Vital Signs (24Hr): Body Mass Index 22.8 Labs Results: 03/20/21 11:36 03/20/21 11:36 Labs: Laboratory Results - last 48 hr 03/20/21 03/20/21 03/22/21 11:36 11:36 07:50 Estimat Average Glucose 94 Cancelled Hgb A1c Fingerstick Cancelled Hemoglobin A1c % 4.9 Cancelled TSH 03/22/21 07:50 Estimat Average Glucose Hgb A1c Fingerstick Hemoglobin A1c % TSH 0.21 L Medications Medications Current Medications Generic Name Dose Route Start Last Admin Trade Name Freq PRN Reason Stop Dose Admin Acetaminophen 650 mg 03/21/21 13:59 Acetaminophen 325 Mg Tablet PO Q6H PRN Headache/Pain Mild Scale (1-3) Al Hydroxide/Mg Hydroxide 30 ml 03/21/21 13:59 Magnesium Hydrox/Alum Hydrox 30 Ml Oral.Susp PO Q6H PRN Heartburn/Nausea Divalproex Sodium 750 mg 03/21/21 21:00 03/22/21 20:36 Divalproex Sodium Er 250 Mg Tab.Er.24h PO 750 mg BEDTIME YUDITH Administration Ferrous Sulfate 324 mg 03/21/21 09:00 03/23/21 09:35 Ferrous Sulfate 324 Mg Tablet.Dr PO 324 mg DAILY YUDITH Administration Folic Acid 1 mg 03/22/21 14:55 03/23/21 09:34 Folic Acid 1 Mg Tablet PO 1 mg DAILY YUDITH Administration Hydroxyzine HCl 50 mg 03/20/21 17:58 03/22/21 18:40 Hydroxyzine Hcl 50 Mg Tablet PO 50 mg TID PRN Administration anxiety Magnesium Hydroxide 30 ml 03/21/21 13:59 Milk Of Magnesia 30 Ml Oral.Susp PO DAILY PRN Constipation Mirtazapine 15 mg 03/20/21 21:00 03/22/21 20:36 Mirtazapine 15 Mg Tablet PO 15 mg BEDTIME YUDITH Administration Nicotine 21 mg 03/21/21 09:00 03/23/21 09:34 Nicotine 21 Mg Patch.Td24 TRANSDERMA 21 mg DAILY YUDITH Administration Olanzapine 5 mg 03/21/21 19:21 Olanzapine 5 Mg Tablet PO Q6H PRN agitation Risperidone 2 mg 03/21/21 09:00 03/23/21 09:34 Risperidone 2 Mg Tablet PO 2 mg DAILY YUDITH Administration Risperidone 3 mg 03/20/21 21:00 03/22/21 20:36 Risperidone 3 Mg Tablet PO 3 mg BEDTIME YUDITH Administration Thiamine HCl 100 mg 03/22/21 14:55 03/23/21 09:35 Thiamine Hcl 100 Mg Tablet PO 100 mg DAILY YUDITH Administration Trazodone HCl 50 mg 03/21/21 13:59 Trazodone Hcl 50 Mg Tablet PO BEDTIME PRN Insomnia Allergies Allergies Allergy/AdvReac Type Severity Reaction Status Date / Time haloperidol [From HALDOL] Allergy Mild DROWSY Verified 11/06/20 20:26 From HALDOL Allergy Mild DROWSY Uncoded 07/28/20 17:43 From SEROQUEL Allergy Mild AUDITORY Uncoded 07/28/20 17:43 HALLUCINATIONS Assessment & Plan Assessment & Plan (1) Schizoaffective disorder: Qualifiers: Schizoaffective disorder type: unspecified Qualified Code(s): F25.9 - Schizoaffective disorder, unspecified Status: Acute Code(s): F25.9 - Schizoaffective disorder, unspecified Assessment and Plan: continue risperidone 2 mg po daily and 3mg po qhs increase of depakote to 750mg po qhs tolerated (2) Cocaine use disorder: Status: Acute Code(s): F14.10 - Cocaine abuse, uncomplicated Assessment and Plan: Pt motivated [facility] (3) Cannabis use disorder, moderate, dependence: Status: Acute Code(s): F12.20 - Cannabis dependence, uncomplicated Greater than 50% of the session was spent on counseling and/or coordination of care Reason for contiued inpatient stay Substantial Risk for: harm to self, inability to function, rapid decompensation and med/psych decompensation
[2021-03-23] MEDS: hydrOXYzine HCL 50 MG TABLET PO (16:36)
[2021-03-23 17:54] VITALS: BP 101/56; PULSE 69; RESP 16; TEMP 36.6; O2SAT 98
[2021-03-23] MEDS: Divalproex Sodium ER 250 MG TAB.ER.24H 750 MG PO (20:39)
[2021-03-23] MEDS: Mirtazapine 15 MG TABLET PO (20:40)
[2021-03-23] MEDS: risperiDONE 3 MG TABLET PO (20:40)
[2021-03-24] MEDS: Folic Acid 1 MG TABLET PO (08:56)
[2021-03-24] MEDS: Ferrous Sulfate 324 MG TABLET.DR PO (08:57)
[2021-03-24] MEDS: risperiDONE 2 MG TABLET PO (08:57)
[2021-03-24] MEDS: Thiamine HCL 100 MG TABLET PO (08:57)
[2021-03-24] MEDS: Nicotine 21 MG PATCH.TD24 TRANSDERMA (08:58)
[2021-03-24 09:00] VITALS: BP 95/54; PULSE 99; RESP 14; TEMP 35.9; O2SAT 100
--- NOTE | 2021-03-24 10:41 | HO.PSYCHPN ---
Subjective Subjective Date of Service: 03/25/21 Reason For Visit: SI Interim History: Pt has had episodes of talking to someone who is not there. She reports decrease AH, some residual paranoia evident. She continues to report that she is motivated to continue substance use treatment in residential place. She denies SI/HI. She has been visible in the unit, but not attending groups. Review of Systems Review of Systems Constitutional : No Fever, No Chills ENT/Mouth : No Ear Pain, No Nasal Congestion, No sore throat Eyes: No Eye Pain, No Swelling, No Redness Cardiovascular : No Chest Pain, No SOB Respiratory : No Cough, No Sputum, No Dyspnea Gastrointestinal : No ingestions, No Nausea, No Vomiting, No Diarrhea, No Hematochezia, No Melena Genitourinary : No Dysuria, No Urinary Frequency, No Hematuria Musculoskeletal : No Myalgias Skin : No Skin Lesions, No rash Neuro : No Weakness, No Numbness, No Paresthesias, No Dizziness, No Headache Psych : + Anxiety, + Depression, + SI, + thoughts of self injury, No HI, No AVH, Heme/Lymph: No Lymphadenopathy Endocrine : No Polyuria, No Polydipsia Yes all other systems are reviewed and are negative Cardiovascular: Denies chest pain, Denies chest pain with activity, Reports rapid heart rate, Denies lightheadedness, Denies dyspnea and Denies orthopnea Respiratory: Denies dyspnea Gastrointestinal: Denies constipation and Denies diarrhea Reports behavioral changes Psychiatric: Reports anxiety, Reports behavioral changes, Reports depression, Reports difficulty concentrating, Reports auditory hallucinations, Reports hopelessness, Reports irritability, Reports anhedonia, Reports mood swings, Reports panic attacks, Reports paranoia and Reports suicidal ideation (denies at this time.) Endocrine: Reports other (TSH 0.21) Mental Status Exam Mental Status Exam Narrative: Appearance: thin, wearing hospital gown, poor hygiene, in NAD Behavior: calm, superficially cooperative Psychomotor: no agitation or retardation noted Speech: clear, normal rate/rhythm/volume, spontaneous TP: tangential TC:restless, wanting to continue substance use treatment Mood: anxious Affect:restless SI:denies HI:none AH/VH:appears to be responding to internal stimuli, talking to someone who is not there Delusions:some paranoia Insight/judgment:fair x 2. Memory/cog: alert, oriented x 3. Grossly intact to conversational testing. Diagnostics Vital Signs (24Hr): Vital Signs - 24 hr 03/24/21 19:30 Temperature 97.5 F Pulse Rate 67 Blood Pressure 110/55 L Pulse Oximetry 98 Body Mass Index 23.1 Labs Results: 03/20/21 11:36 03/20/21 11:36 Medications Medications Current Medications Generic Name Dose Route Start Last Admin Trade Name Freq PRN Reason Stop Dose Admin Acetaminophen 650 mg 03/21/21 13:59 Acetaminophen 325 Mg Tablet PO Q6H PRN Headache/Pain Mild Scale (1-3) Al Hydroxide/Mg Hydroxide 30 ml 03/21/21 13:59 Magnesium Hydrox/Alum Hydrox 30 Ml Oral.Susp PO Q6H PRN Heartburn/Nausea Divalproex Sodium 750 mg 03/21/21 21:00 03/24/21 20:00 Divalproex Sodium Er 250 Mg Tab.Er.24h PO 750 mg BEDTIME YUDITH Administration Ferrous Sulfate 324 mg 03/21/21 09:00 03/25/21 09:53 Ferrous Sulfate 324 Mg Tablet.Dr PO 324 mg DAILY YUDITH Administration Folic Acid 1 mg 03/22/21 14:55 03/25/21 09:54 Folic Acid 1 Mg Tablet PO 1 mg DAILY YUDITH Administration Hydroxyzine HCl 50 mg 03/20/21 17:58 03/23/21 16:36 Hydroxyzine Hcl 50 Mg Tablet PO 50 mg TID PRN Administration anxiety Magnesium Hydroxide 30 ml 03/21/21 13:59 Milk Of Magnesia 30 Ml Oral.Susp PO DAILY PRN Constipation Mirtazapine 15 mg 03/20/21 21:00 03/24/21 20:00 Mirtazapine 15 Mg Tablet PO 15 mg BEDTIME YUDITH Administration Naltrexone HCl 50 mg 03/25/21 09:05 03/25/21 09:53 Naltrexone Hcl 50 Mg Tablet PO 50 mg DAILY YUDITH Administration Nicotine 21 mg 03/21/21 09:00 03/25/21 09:54 Nicotine 21 Mg Patch.Td24 TRANSDERMA 21 mg DAILY YUDITH Administration Olanzapine 5 mg 03/21/21 19:21 Olanzapine 5 Mg Tablet PO Q6H PRN agitation Risperidone 2 mg 03/21/21 09:00 03/25/21 09:53 Risperidone 2 Mg Tablet PO 2 mg DAILY YUDITH Administration Risperidone 3 mg 03/20/21 21:00 05/14/21 20:01 Risperidone 3 Mg Tablet PO 3 mg BEDTIME YUDITH Administration Thiamine HCl 100 mg 03/22/21 14:55 03/25/21 09:54 Thiamine Hcl 100 Mg Tablet PO 100 mg DAILY YUDITH Administration Trazodone HCl 50 mg 03/21/21 13:59 Trazodone Hcl 50 Mg Tablet PO BEDTIME PRN Insomnia Allergies Allergies Allergy/AdvReac Type Severity Reaction Status Date / Time haloperidol [From HALDOL] Allergy Mild DROWSY Verified 11/06/20 20:26 From HALDOL Allergy Mild DROWSY Uncoded 07/28/20 17:43 From SEROQUEL Allergy Mild AUDITORY Uncoded 07/28/20 17:43 HALLUCINATIONS Assessment & Plan Assessment & Plan (1) Schizoaffective disorder: Qualifiers: Schizoaffective disorder type: unspecified Qualified Code(s): F25.9 - Schizoaffective disorder, unspecified Status: Acute Code(s): F25.9 - Schizoaffective disorder, unspecified Assessment and Plan: continue risperidone 2 mg po daily and 3mg po qhs increase of depakote to 750mg po qhs tolerated- will check depakote levels and ammonia (2) Cocaine use disorder: Status: Acute Code(s): F14.10 - Cocaine abuse, uncomplicated Assessment and Plan: Pt motivated to be connected to residential substance use treatment- [facility] (3) Cannabis use disorder, moderate, dependence: Status: Acute Code(s): F12.20 - Cannabis dependence, uncomplicated Greater than 50% of the session was spent on counseling and/or coordination of care Reason for contiued inpatient stay Substantial Risk for: inability to function
[2021-03-24 19:30] VITALS: BP 110/55; PULSE 67; TEMP 36.4; O2SAT 98
[2021-03-24] MEDS: Divalproex Sodium ER 250 MG TAB.ER.24H 750 MG PO (20:00)
[2021-03-24] MEDS: Mirtazapine 15 MG TABLET PO (20:00)
[2021-03-24] MEDS: risperiDONE 3 MG TABLET PO (20:01)
[2021-03-25] MEDS: risperiDONE 2 MG TABLET PO (09:53)
[2021-03-25] MEDS: Naltrexone HCl 50 MG TABLET PO (09:53)
[2021-03-25] MEDS: Ferrous Sulfate 324 MG TABLET.DR PO (09:53)
[2021-03-25] MEDS: Thiamine HCL 100 MG TABLET PO (09:54)
[2021-03-25] MEDS: Folic Acid 1 MG TABLET PO (09:54)
[2021-03-25] MEDS: Nicotine 21 MG PATCH.TD24 TRANSDERMA (09:54)
--- NOTE | 2021-03-25 11:14 | P.PNPSI_ITS ---
Subjective Subjective Date of Service: 03/26/21 Reason For Visit: SI Interim History: Pt continues to isolate at times. She is seen talking to someone who is not there and yelling get out you bitch!. She denies AH- but she continues to present as internally preoccupied. She reports she was not able to sleep last night and thinks is because of depakote. She reports she was on trazodone in the past but did not help. She denies SI/HI. Some suspiciousness noted. She is mostly in bed, minimally interactive with peers. Review of Systems Review of Systems Constitutional : No Fever, No Chills ENT/Mouth : No Ear Pain, No Nasal Congestion, No sore throat Eyes: No Eye Pain, No Swelling, No Redness Cardiovascular : No Chest Pain, No SOB Respiratory : No Cough, No Sputum, No Dyspnea Gastrointestinal : No ingestions, No Nausea, No Vomiting, No Diarrhea, No Hematochezia, No Melena Genitourinary : No Dysuria, No Urinary Frequency, No Hematuria Musculoskeletal : No Myalgias Skin : No Skin Lesions, No rash Neuro : No Weakness, No Numbness, No Paresthesias, No Dizziness, No Headache Psych : + Anxiety, + Depression, + SI, + thoughts of self injury, No HI, No AVH, Heme/Lymph: No Lymphadenopathy Endocrine : No Polyuria, No Polydipsia Yes all other systems are reviewed and are negative Cardiovascular: Denies chest pain, Denies chest pain with activity, Reports rapid heart rate, Denies lightheadedness, Denies dyspnea and Denies orthopnea Respiratory: Denies dyspnea Gastrointestinal: Denies constipation and Denies diarrhea Reports behavioral changes Psychiatric: Reports anxiety, Reports behavioral changes, Reports depression, Reports difficulty concentrating, Reports auditory hallucinations, Reports hopelessness, Reports irritability, Reports anhedonia, Reports mood swings, Reports panic attacks, Reports paranoia and Reports suicidal ideation (denies at this time.) Endocrine: Reports other (TSH 0.21) Mental Status Exam Mental Status Exam Narrative: Appearance: thin, wearing hospital gown, poor hygiene, in NAD Behavior: calm, superficially cooperative Psychomotor: no agitation or retardation noted Speech: clear, normal rate/rhythm/volume, spontaneous TP: tangential TC:restless, wanting to continue substance use treatment Mood: anxious Affect:restless SI:denies HI:none AH/VH:appears to be responding to internal stimuli, talking to someone who is not there Delusions:some paranoia Insight/judgment:fair x 2. Memory/cog: alert, oriented x 3. Grossly intact to conversational testing. Patient Appearance: Fatigued and Disheveled Patient Orientation: Person, Place, Time and Situation Level of Consciousness: Awake and Alert Patient Behavior: Talkative, Cooperative, Anxious, Fearful, Fatigued, Distractible and Good Eye Contact Mood Description: Withdrawn, Depressed, Anxious, Nervous and Apprehensive Affect Description: Anxious and Flat Patient Cognition Impaired: No Ability to Follow Directions: Good Speech Pattern: Spontaneous Speech and Soft-Spoken Memory Description: Intact Diagnostics Vital Signs (24Hr): Body Mass Index 23.1 Labs Results: 03/20/21 11:36 03/20/21 11:36 Labs: Laboratory Results - last 48 hr 03/25/21 16:56 Valproic Acid 52.9 Medications Medications Current Medications Generic Name Dose Route Start Last Admin Trade Name Freq PRN Reason Stop Dose Admin Acetaminophen 650 mg 03/21/21 13:59 Acetaminophen 325 Mg Tablet PO Q6H PRN Headache/Pain Mild Scale (1-3) Al Hydroxide/Mg Hydroxide 30 ml 03/21/21 13:59 Magnesium Hydrox/Alum Hydrox 30 Ml Oral.Susp PO Q6H PRN Heartburn/Nausea Divalproex Sodium 750 mg 03/21/21 21:00 03/25/21 18:55 Divalproex Sodium Er 250 Mg Tab.Er.24h PO Not Given BEDTIME YUDITH Ferrous Sulfate 324 mg 03/21/21 09:00 03/26/21 08:56 Ferrous Sulfate 324 Mg Tablet. PO 324 mg DAILY YUDITH Administration Folic Acid 1 mg 03/22/21 14:55 03/26/21 08:56 Folic Acid 1 Mg Tablet PO 1 mg DAILY YUDITH Administration Hydroxyzine HCl 50 mg 03/20/21 17:58 03/23/21 16:36 Hydroxyzine Hcl 50 Mg Tablet PO 50 mg TID PRN Administration anxiety Magnesium Hydroxide 30 ml 03/21/21 13:59 Milk Of Magnesia 30 Ml Oral.Susp PO DAILY PRN Constipation Mirtazapine 15 mg 03/20/21 21:00 03/25/21 19:59 Mirtazapine 15 Mg Tablet PO 15 mg BEDTIME YUDITH Administration Naltrexone HCl 50 mg 03/25/21 09:05 03/26/21 08:56 Naltrexone Hcl 50 Mg Tablet PO 50 mg DAILY YUDITH Administration Nicotine 21 mg 03/21/21 09:00 03/26/21 08:56 Nicotine 21 Mg Patch.Td24 TRANSDERMA 21 mg DAILY YUDITH Administration Olanzapine 5 mg 03/21/21 19:21 03/26/21 09:52 Olanzapine 5 Mg Tablet PO 5 mg Q6H PRN Administration agitation Risperidone 2 mg 03/21/21 09:00 03/26/21 08:56 Risperidone 2 Mg Tablet PO 2 mg DAILY YUDITH Administration Risperidone 3 mg 03/20/21 21:00 03/25/21 19:59 Risperidone 3 Mg Tablet PO 3 mg BEDTIME YUDITH Administration Thiamine HCl 100 mg 03/22/21 14:55 03/26/21 08:56 Thiamine Hcl 100 Mg Tablet PO 100 mg DAILY YUDITH Administration Trazodone HCl 50 mg 03/21/21 13:59 03/25/21 20:00 Trazodone Hcl 50 Mg Tablet PO 50 mg BEDTIME PRN Administration Insomnia Allergies Allergies Allergy/AdvReac Type Severity Reaction Status Date / Time haloperidol [From HALDOL] Allergy Mild DROWSY Verified 11/06/20 20:26 From HALDOL Allergy Mild DROWSY Uncoded 07/28/20 17:43 From SEROQUEL Allergy Mild AUDITORY Uncoded 07/28/20 17:43 HALLUCINATIONS Assessment & Plan Assessment & Plan (1) Schizoaffective disorder: Qualifiers: Schizoaffective disorder type: unspecified Qualified Code(s): F25.9 - Schizoaffective disorder, unspecified Status: Acute Code(s): F25.9 - Schizoaffective disorder, unspecified Assessment and Plan: continue risperidone 2 mg po daily and 3mg po qhs increase of depakote to 750mg po qhs tolerated- will check depakote levels and ammonia (2) Cocaine use disorder: Status: Acute Code(s): F14.10 - Cocaine abuse, uncomplicated Assessment and Plan: Pt motivated to be connected to residential substance use treatment- [facility] (3) Cannabis use disorder, moderate, dependence: Status: Acute Code(s): F12.20 - Cannabis dependence, uncomplicated Greater than 50% of the session was spent on counseling and/or coordination of care Reason for contiued inpatient stay Substantial Risk for: inability to function
[2021-03-25 17:39] LABS: Valproate 52.9 mcg/mL (50.0-100.0)
[2021-03-25] MEDS: Mirtazapine 15 MG TABLET PO (19:59)
[2021-03-25] MEDS: risperiDONE 3 MG TABLET PO (19:59)
[2021-03-25] MEDS: traZODone HCL 50 MG TABLET PO (20:00)
[2021-03-26] MEDS: Nicotine 21 MG PATCH.TD24 TRANSDERMA (08:56)
[2021-03-26] MEDS: Naltrexone HCl 50 MG TABLET PO (08:56)
[2021-03-26] MEDS: risperiDONE 2 MG TABLET PO (08:56)
[2021-03-26] MEDS: Thiamine HCL 100 MG TABLET PO (08:56)
[2021-03-26] MEDS: Folic Acid 1 MG TABLET PO (08:56)
[2021-03-26] MEDS: Ferrous Sulfate 324 MG TABLET.DR PO (08:56)
[2021-03-26] MEDS: OLANZapine 5 MG TABLET PO (09:52)
--- NOTE | 2021-03-26 11:16 | P.PNPSI_ITS ---
Subjective Subjective Date of Service: 03/26/21 Reason For Visit: SI Interim History: Pt decline depakote last night as she reports is keeping her up. She reports better sleep last night. She is seen talking to someone who is not there and yelling get out you bitch!. She denies AH- but she continues to present as internally preoccupied- we discussed increasing risperidone to 3mg po BID, which she agrees. She denies SI/HI. Some suspiciousness noted. She is mostly in bed, minimally interactive with peers. Review of Systems Review of Systems Constitutional : No Fever, No Chills ENT/Mouth : No Ear Pain, No Nasal Congestion, No sore throat Eyes: No Eye Pain, No Swelling, No Redness Cardiovascular : No Chest Pain, No SOB Respiratory : No Cough, No Sputum, No Dyspnea Gastrointestinal : No ingestions, No Nausea, No Vomiting, No Diarrhea, No Hematochezia, No Melena Genitourinary : No Dysuria, No Urinary Frequency, No Hematuria Musculoskeletal : No Myalgias Skin : No Skin Lesions, No rash Neuro : No Weakness, No Numbness, No Paresthesias, No Dizziness, No Headache Psych : + Anxiety, + Depression, + SI, + thoughts of self injury, No HI, No AVH, Heme/Lymph: No Lymphadenopathy Endocrine : No Polyuria, No Polydipsia Yes all other systems are reviewed and are negative Cardiovascular: Denies chest pain, Denies chest pain with activity, Reports rapid heart rate, Denies lightheadedness, Denies dyspnea and Denies orthopnea Respiratory: Denies dyspnea Gastrointestinal: Denies constipation and Denies diarrhea Reports behavioral changes Psychiatric: Reports anxiety, Reports behavioral changes, Reports depression, Reports difficulty concentrating, Reports auditory hallucinations, Reports hopelessness, Reports irritability, Reports anhedonia, Reports mood swings, Reports panic attacks, Reports paranoia and Reports suicidal ideation (denies at this time.) Endocrine: Reports other (TSH 0.21) Mental Status Exam Mental Status Exam Narrative: Appearance: thin, wearing hospital gown, poor hygiene, in NAD Behavior: calm, superficially cooperative Psychomotor: no agitation or retardation noted Speech: clear, normal rate/rhythm/volume, spontaneous TP: tangential TC:restless, wanting to continue substance use treatment Mood: anxious Affect:restless SI:denies HI:none AH/VH:appears to be responding to internal stimuli, talking to someone who is not there Delusions:some paranoia Insight/judgment:fair x 2. Memory/cog: alert, oriented x 3. Grossly intact to conversational testing. Patient Appearance: Fatigued and Disheveled Patient Orientation: Person, Place, Time and Situation Level of Consciousness: Awake and Alert Patient Behavior: Talkative, Cooperative, Anxious, Fearful, Fatigued, Distrac tible and Good Eye Contact Mood Description: Withdrawn, Depressed, Anxious, Nervous and Apprehensive Affect Description: Anxious and Flat Patient Cognition Impaired: No Ability to Follow Directions: Good Speech Pattern: Spontaneous Speech and Soft-Spoken Memory Description: Intact Diagnostics Vital Signs (24Hr): Body Mass Index 23.1 Labs Results: 03/20/21 11:36 03/20/21 11:36 Labs: Laboratory Results - last 48 hr 03/25/21 16:56 Valproic Acid 52.9 Medications Medications Current Medications Generic Name Dose Route Start Last Admin Trade Name Freq PRN Reason Stop Dose Admin Acetaminophen 650 mg 03/21/21 13:59 Acetaminophen 325 Mg Tablet PO Q6H PRN Headache/Pain Mild Scale (1-3) Al Hydroxide/Mg Hydroxide 30 ml 03/21/21 13:59 Magnesium Hydrox/Alum Hydrox 30 Ml Oral.Susp PO Q6H PRN Heartburn/Nausea Divalproex Sodium 750 mg 03/21/21 21:00 03/25/21 18:55 Divalproex Sodium Er 250 Mg Tab.Er.24h PO Not Given BEDTIME YUDITH Ferrous Sulfate 324 mg 03/21/21 09:00 03/26/21 08:56 Ferrous Sulfate 324 Mg Tablet.Dr PO 324 mg DAILY YUDITH Administration Folic Acid 1 mg 03/22/21 14:55 03/26/21 08:56 Folic Acid 1 Mg Tablet PO 1 mg DAILY YUDITH Administration Hydroxyzine HCl 50 mg 03/20/21 17:58 03/23/21 16:36 Hydroxyzine Hcl 50 Mg Tablet PO 50 mg TID PRN Administration anxiety Magnesium Hydroxide 30 ml 03/21/21 13:59 Milk Of Magnesia 30 Ml Oral.Susp PO DAILY PRN Constipation Mirtazapine 15 mg 03/20/21 21:00 03/25/21 19:59 Mirtazapine 15 Mg Tablet PO 15 mg BEDTIME YUDITH Administration Naltrexone HCl 50 mg 03/25/21 09:05 03/26/21 08:56 Naltrexone Hcl 50 Mg Tablet PO 50 mg DAILY YUDITH Administration Nicotine 21 mg 03/21/21 09:00 03/26/21 08:56 Nicotine 21 Mg Patch.Td24 TRANSDERMA 21 mg DAILY YUDITH Administration Olanzapine 5 mg 03/21/21 19:21 03/26/21 09:52 Olanzapine 5 Mg Tablet PO 5 mg Q6H PRN Administration agitation Risperidone 2 mg 03/21/21 09:00 03/26/21 08:56 Risperidone 2 Mg Tablet PO 2 mg DAILY YUDITH Administration Risperidone 3 mg 03/20/21 21:00 03/25/21 19:59 Risperidone 3 Mg Tablet PO 3 mg BEDTIME YUDITH Administration Thiamine HCl 100 mg 03/22/21 14:55 03/26/21 08:56 Thiamine Hcl 100 Mg Tablet PO 100 mg DAILY YUDITH Administration Trazodone HCl 50 mg 03/21/21 13:59 03/25/21 20:00 Trazodone Hcl 50 Mg Tablet PO 50 mg BEDTIME PRN Administration Insomnia Allergies Allergies Allergy/AdvReac Type Severity Reaction Status Date / Time haloperidol [From HALDOL] Allergy Mild DROWSY Verified 11/06/20 20:26 From HALDOL Allergy Mild DROWSY Uncoded 07/28/20 17:43 From SEROQUEL Allergy Mild AUDITORY Uncoded 07/28/20 17:43 HALLUCINATIONS Assessment & Plan Assessment & Plan (1) Schizoaffective disorder: Qualifiers: Schizoaffective disorder type: unspecified Qualified Code(s): F25.9 - Schizoaffective disorder, unspecified Status: Acute Code(s): F25.9 - Schizoaffective disorder, unspecified Assessment and Plan: Increase risperidone 3mg po BID increase of depakote to 750mg po qhs tolerated- will check depakote levels and ammonia (2) Cocaine use disorder: Status: Acute Code(s): F14.10 - Cocaine abuse, uncomplicated Assessment and Plan: Pt motivated to be connected to residential substance use treatment- [facility] (3) Cannabis use disorder, moderate, dependence: Status: Acute Code(s): F12.20 - Cannabis dependence, uncomplicated Greater than 50% of the session was spent on counseling and/or coordination of care Reason for contiued inpatient stay Substantial Risk for: inability to function
[2021-03-26 16:25] VITALS: BP 105/60; PULSE 62; TEMP 36.3
[2021-03-26] MEDS: risperiDONE 3 MG TABLET PO (21:22)
[2021-03-26] MEDS: Mirtazapine 15 MG TABLET PO (21:22)
[2021-03-27] MEDS: Nicotine 21 MG PATCH.TD24 TRANSDERMA (09:08)
[2021-03-27] MEDS: Naltrexone HCl 50 MG TABLET PO (09:08)
[2021-03-27] MEDS: Folic Acid 1 MG TABLET PO (09:08)
[2021-03-27] MEDS: risperiDONE 3 MG TABLET PO ×2 (09:08→21:07)
[2021-03-27] MEDS: Thiamine HCL 100 MG TABLET PO (09:08)
[2021-03-27] MEDS: Ferrous Sulfate 324 MG TABLET.DR PO (09:08)
--- NOTE | 2021-03-27 10:05 | P.PNPSI_ITS ---
Subjective Subjective Date of Service: 03/27/21 Reason For Visit: SI Subjective Notes: 3 Day Interim History: covering for primary provider Pt pleasant and calm but wanting discharge. Pt reports good mood, denies depression, SI or AVH and plans to go with sister. Field Technical Support Consultant explained and patient accepted the need to wait for SUMI Oswald to return to discuss disposition as typewriter ribbon winder was just covering for the day. Field Technical Support Consultant asked about depakote, and pt refuses; she says it makes her too alert in the nighttime but even though typewriter ribbon winder offered to switch it to daytime, patient says she does not want it at all, that it has not made much difference and that increased Risperdal dose is adequate. Otherwise no complaints. typewriter ribbon winder explained 3 day notice but patient declined saying she'd wait to talk with Margret tomorrow. Medication Compliance: No Side effects from medications: Yes (depakote makes her too alert at nighttime) Mental Status Exam Mental Status Exam Narrative: Pt is alert and oriented; behavior is cooperative, friendly and calm; patient is not in distress; dressed in casual attire with adequate hygiene; mood is described as good and affect congruent; eye contact appropriate; Speech is normal rate, volume and prosody and not pressured; no psychomotor agitation/retardation present; thought process is organized, linear, logical and goal directed. Thought content is on discharge; otherwise pertinent to relevant topics and without any delusional content, paranoid ideations or grandiosity; denies any SI/HI. There is no evidence of perceptual disturbance. Patients insight and judgment appear intact. Diagnostics Vital Signs (24Hr): Vital Signs - 24 hr 03/26/21 16:25 Temperature 97.4 F Pulse Rate 62 Blood Pressure 105/60 Body Mass Index 23.1 Labs Results: 03/20/21 11:36 03/20/21 11:36 Labs: Laboratory Results - last 48 hr 03/25/21 16:56 Valproic Acid 52.9 Medications Medications Current Medications Generic Name Dose Route Start Last Admin Trade Name Freq PRN Reason Stop Dose Admin Acetaminophen 650 mg 03/21/21 13:59 Acetaminophen 325 Mg Tablet PO Q6H PRN Headache/Pain Mild Scale (1-3) Al Hydroxide/Mg Hydroxide 30 ml 03/21/21 13:59 Magnesium Hydrox/Alum Hydrox 30 Ml Oral.Susp PO Q6H PRN Heartburn/Nausea Divalproex Sodium 750 mg 03/21/21 21:00 03/26/21 21:23 Divalproex Sodium Er 250 Mg Tab.Er.24h PO Not Given BEDTIME YUDITH Ferrous Sulfate 324 mg 03/21/21 09:00 03/27/21 09:08 Ferrous Sulfate 324 Mg Tablet.Dr PO 324 mg DAILY YUDITH Administration Folic Acid 1 mg 03/22/21 14:55 03/27/21 09:08 Folic Acid 1 Mg Tablet PO 1 mg DAILY YUDITH Administration Hydroxyzine HCl 50 mg 03/20/21 17:58 03/23/21 16:36 Hydroxyzine Hcl 50 Mg Tablet PO 50 mg TID PRN Administration anxiety Magnesium Hydroxide 30 ml 03/21/21 13:59 Milk Of Magnesia 30 Ml Oral.Susp PO DAILY PRN Constipation Mirtazapine 15 mg 03/20/21 21:00 03/26/21 21:22 Mirtazapine 15 Mg Tablet PO 15 mg BEDTIME YUDITH Administration Naltrexone HCl 50 mg 03/25/21 09:05 03/27/21 09:08 Naltrexone Hcl 50 Mg Tablet PO 50 mg DAILY YUDITH Administration Nicotine 21 mg 03/21/21 09:00 03/27/21 09:08 Nicotine 21 Mg Patch.Td24 TRANSDERMA 21 mg DAILY YUDITH Administration Olanzapine 5 mg 03/21/21 19:21 03/26/21 09:52 Olanzapine 5 Mg Tablet PO 5 mg Q6H PRN Administration agitation Risperidone 3 mg 03/26/21 21:00 03/27/21 09:08 Risperidone 3 Mg Tablet PO 3 mg BID YUDITH Administration Thiamine HCl 100 mg 03/22/21 14:55 03/27/21 09:08 Thiamine Hcl 100 Mg Tablet PO 100 mg DAILY YUDITH Administration Trazodone HCl 50 mg 03/21/21 13:59 03/25/21 20:00 Trazodone Hcl 50 Mg Tablet PO 50 mg BEDTIME PRN Administration Insomnia Allergies Allergies Allergy/AdvReac Type Severity Reaction Status Date / Time haloperidol [From HALDOL] Allergy Mild DROWSY Verified 11/06/20 20:26 From HALDOL Allergy Mild DROWSY Uncoded 07/28/20 17:43 From SEROQUEL Allergy Mild AUDITORY Uncoded 07/28/20 17:43 HALLUCINATIONS Assessment & Plan Assessment & Plan (1) Schizoaffective disorder: Qualifiers: Schizoaffective disorder type: unspecified Qualified Code(s): F25.9 - Schizoaffective disorder, unspecified Status: Acute Code(s): F25.9 - Schizoaffective disorder, unspecified Assessment and Plan: Increase risperidone 3mg po BID increase of depakote to 750mg po qhs tolerated- will check depakote levels and ammonia (2) Cocaine use disorder: Status: Acute Code(s): F14.10 - Cocaine abuse, uncomplicated Assessment and Plan: Pt motivated to be connected to residential substance use treatment- [facility] (3) Cannabis use disorder, moderate, dependence: Status: Acute Code(s): F12.20 - Cannabis dependence, uncomplicated typewriter ribbon winder covering pt presents as stable; denies avh, si, depression. no longer wants to take Depakote and looking for discharge but will discuss with Margret when returns. otherwise, no changes to tx plan Greater than 50% of the session was spent on counseling and/or coordination of care Reason for contiued inpatient stay Substantial Risk for: other (defer to primary team)
[2021-03-27 19:54] VITALS: BP 105/53; PULSE 70; TEMP 36.1; O2SAT 99
[2021-03-27] MEDS: Mirtazapine 15 MG TABLET PO (21:06)
[2021-03-27] MEDS: traZODone HCL 50 MG TABLET PO (21:25)
[2021-03-28] MEDS: risperiDONE 3 MG TABLET PO (09:13)
[2021-03-28] MEDS: Ferrous Sulfate 324 MG TABLET.DR PO (09:13)
[2021-03-28] MEDS: Folic Acid 1 MG TABLET PO (09:13)
[2021-03-28] MEDS: Thiamine HCL 100 MG TABLET PO (09:13)
[2021-03-28] MEDS: Naltrexone HCl 50 MG TABLET PO (09:14)
[2021-03-28] MEDS: Nicotine 21 MG PATCH.TD24 TRANSDERMA (09:46)
--- NOTE | 2021-03-28 10:49 | PM.PSYDC ---
DS: Providers Provider Date of Service: 03/30/21 Date of admission: 03/21/21 13:59 Primary care physician: Unknown Physician DS: Diagnosis Discharge Diagnosis (1) Schizoaffective disorder: Status: Acute Problem details: 40 yo female, homeless, with a history of schizoaffective disorder, cannabis, cocaine and alcohol use disorder presents reporting an increase in depressive sx and SI. (2) Cocaine use disorder: Status: Acute (3) Cannabis use disorder, moderate, dependence: Status: Acute DS: Medications Discharge Medications Home Medications: Previous Rx's Medication Instructions Recorded ferrous sulfate 324 mg PO DAILY #30 tab 03/28/21 mirtazapine 15 mg PO BEDTIME #30 tab 03/28/21 naltrexone 50 mg PO DAILY 30 Days #30 tab 03/28/21 nicotine 21 mg TRANSDERMAL DAILY 30 Days 03/28/21 #30 ea risperidone 3 mg PO BID 30 Days #60 tab 03/28/21 thiamine mononitrate (vit B1) 100 mg PO DAILY 30 Days #30 tab 03/28/21 trazodone 50 mg PO BEDTIME PRN 30 Days tab 03/28/21 Discharge Plan Discharge Patient Disposition: Home, Self-Care Discharge Diagnosis: Schizoaffective Disorder, BIpolar Type Cocaine Use Disorder Referrals: [facility] [Other] - 04/12/21 1:00 pm (The Intake appointment is via Telehealth and the program is virtual) Dr. Geremias Shipman: Psychiatrist at [facility] [Other] - 04/19/21 2:20 pm (This is a Telehealth Appointment) Stefania Mayer ([facility]) [Other] - 1 Week (Please call your [facility] pillowcase sewer, Stefania, with any questions regarding your treatment) Physician,Unknown [Primary Care Provider] - 1 Week Discharge Medications: New trazodone 50 mg Tablet 50 mg PO BEDTIME PRN (Reason: Insomnia) 30 Days RF: 0 naltrexone 50 mg Tablet 50 mg PO DAILY 30 Days Qty: 30 RF: 0 risperidone 3 mg Tablet 3 mg PO BID 30 Days Qty: 60 RF: 0 thiamine mononitrate (vit B1) 100 mg Tablet 100 mg PO DAILY 30 Days Qty: 30 RF: 0 Continued nicotine 21 mg/24 hr Patch 24 Hour 21 mg transdermal DAILY 30 Days Qty: 30 RF: 0 mirtazapine 15 mg Tablet 15 mg PO BEDTIME Qty: 30 RF: 0 ferrous sulfate 324 mg (65 mg iron) Tablet,Delayed Release (Dr/Ec) 324 mg PO DAILY Qty: 30 RF: 0 Discontinued divalproex [Depakote ER] 500 mg Tablet Extended Release 24 Hr 500 mg PO BEDTIME Qty: 30 RF: 0 hydroxyzine HCl 50 mg tablet 1 tab PO TID PRN (Reason: anxiety) RF: 0 risperidone 3 mg tablet 1 tab PO BEDTIME RF: 0 risperidone 2 mg tablet 1 tab PO QAM RF: 0 Discharge Orders: Discharge Order (Routine); Ordered 03/28/21 Ordered By: Audra Oswald Diet: regular diet Activity on Discharge: As tolerated Stand Alone Forms: Patient Portal Discharge page, Community Support Care Plan Goals: 1. Continue medications as prescribed 2. Continue working towards sobriety 3. Follow up with referrals Health Concerns: 1. Follow up with PCP Plan of Treatment: 1. Go to nearest ED or call 911 in event of emergency Assessment: Pt less AH, less labile. No SI/HI. Future oriented. Discharge Date/Time: 03/28/21 14:00 Mental Status Exam Mental Status Exam Narrative: Appearance: thin, casually groomed, fair hygiene, in NAD Behavior: calm, cooperative Psychomotor: no agitation or retardation noted Speech: clear, normal rate/rhythm/volume, spontaneous TP: tangential TC:no overt s/s of psychosis, looking forward to go to sister's house Mood: better Affect:calmer, congruent SI:denies HI:none AH/VH:less AH Delusions:some paranoia Insight/judgment:fair x 2. Memory/cog: alert, oriented x 3. Grossly intact to conversational testing. Data Data Completed and Pending Completed studies during hospitalization [Text1]: 03/20/21 03/20/21 03/22/21 11:36 11:36 07:50 Estimat Average Glucose 94 Cancelled Hgb A1c Fingerstick Cancelled Hemoglobin A1c % 4.9 Cancelled TSH Valproic Acid 03/22/21 03/25/21 07:50 16:56 Estimat Average Glucose Hgb A1c Fingerstick Hemoglobin A1c % TSH 0.21 L Valproic Acid 52.9 DS: Summary Hospital Course Hospital Course: Narrative: Ms. Loera is a 40 year-old woman with hx of cocaine/alcohol use disorder and schizoaffective disorder who self presented to [facility] ED reporting increased CAH, depressed mood, anxious mood, passive suicidal ideation in context of substance use. Ms. Loera is known to [facility] through previous admission with similar presentation. In the ED, her utox was positive for cocaine and cannabis. On the unit, Ms. Loera initially presented as very restless, anxious reporting CAH telling her to hurt herself. She reported anhedonia, poor sleep/appetite. She also endorse passive suicidal ideation. She states she is motivated to be connected with substance use treatment programs. She reports OP psychiatric services through [facility]. She reports medication she is on are effective. She does note that use of cocaine increases AH independently of taking antipsychotics. Past Psychiatric History: OP: [facility]- Stefania Mayer-therapy; Geremias Shipman-psychopharmacology IP: Pt reports several admissions- [facility] February 2020 Trials: risperidone, depakote Suicide attempts: more than 20 years ago, OD. HOSPITAL COURSE Ms. Loera was admitted on a CV and placed on 15 minutes checks for safety. On the unit, Ms. Loera endorsed depressed mood, anhedonia, hearing voices telling her to hurt herself. She reported poor sleep and appetite. She initially endorsed suicidal ideation without a plan but this resolved at time of discharge. After discussing risks, benefits and alternative treatment options, Ms. Loera agreed to continue risperidone and depakote. Deapkote was increased from 500mg po qhs to 750mg po qhs. She was continued on risperidone 2mg po daily and 3 mg po qhs but eventually risperidone was increased to 3mg po BID as pt continued to report to internal stimuli. She gradually appeared less irritable and less hypervigilant as result of psychosis and cocaine withdrawal, and was more visible in the unit. She reported decreased AH, although at times pt continued to be seen talking to someone who was not there. She appeared calmer and reported wanting to continue residential substance use treatment. Referrals were made to [facility] but she was placed on wait list. She asked to stop depakote because she thought it was interfering with sleep, but agreed to continue oral risperidone. Collateral information gathered from his sister, who reported pt appeared in improved condition in terms of psychosis and agitation. Sister did report concern about ongoing substance use and its effects on her mood. Pt went to her sister's house as she currently does not have a stable place to live. There were no incidences of disruptive behaviors nor use of restraints. Status at Discharge Cognitive/behavioral status at discharge: Pt reports less AH. She is calmer, less explosive/impulsive. She denies SI/HI. Functional status at discharge: independent ambulation Overall status at discharge: patient is progressing back to baseline Time Spent with Patient Time attestation: Total time spent providing and/or coordinating discharge services: Time spent: Greater than 30 minutes
--- NOTE | 2021-03-28 14:15 | PC.NURSE ---
Pt walked off the floor by this RN at 1:45 to a waiting cab in front of the hospital. The patient stated she understood all the discharge instructions and had no questions.
== END 2021-03-28 14:00 | disposition home or self-care (01) | DRG 750 ==
LOC: HO.ED 12:10 → HO.PM5 03-21 14:38
PROVIDERS: Physician Assistant Medical; Admitting Provider Social Worker; Emergency Provider Emergency Medicine; Visit Provider Social Worker
DX: F25.9 Schizoaffective disorder, unspecified (principal); R45.851 Suicidal ideations; F17.210 Nicotine dependence, cigarettes, uncomplicated; Z71.6 Tobacco abuse counseling; F12.20 Cannabis dependence, uncomplicated; F14.10 Cocaine abuse, uncomplicated; Z20.822 Contact with and (suspected) exposure to COVID-19; Z79.899 Other long term (current) drug therapy
CPT/HCPCS: 36415; 80053; 80164; 80307; 80320; 81003; 81025; 83036; 83735; 84443; 84702; 85025; 87635; 93005; 99285; Q0163

== ENCOUNTER 2021-06-02 09:29 | Emergency (ER) | payer OTHER, SELFPAY ==
[2021-06-02 09:36] VITALS: BP 100/49; PULSE 73; RESP 14; TEMP 35.9; O2SAT 99; BMI 24.7
--- NOTE | 2021-06-02 09:42 | ED.GENADULT ---
HPI - General Adult General Chief complaint: General Medical Stated complaint: MED REFILL Source: patient Mode of arrival: ambulatory Limitations: no limitations History of Present Illness HPI narrative: Patient presents ED for medication refill. Patient denies any physical or mental complaint. Patient states she has been out of her Risperdal 3 mg b.i.d. for about 2 days and have been calling her psychiatrist for 1 week so she could have her meds before she finishes but there has been no call back. Related Data Previous Rx's Medication Instructions Recorded ferrous sulfate 324 mg PO DAILY #30 tab 03/28/21 mirtazapine 15 mg PO BEDTIME #30 tab 03/28/21 naltrexone 50 mg PO DAILY 30 Days #30 tab 03/28/21 nicotine 21 mg TRANSDERMAL DAILY 30 Days 03/28/21 #30 ea risperidone 3 mg PO BID 30 Days #60 tab 03/28/21 thiamine mononitrate (vit B1) 100 mg PO DAILY 30 Days #30 tab 03/28/21 trazodone 50 mg PO BEDTIME PRN 30 Days tab 03/28/21 risperidone 3 mg PO BID 4 Days #8 tab 06/02/21 Allergies Allergy/AdvReac Type Severity Reaction Status Date / Time haloperidol [From HALDOL] Allergy Mild DROWSY Verified 11/06/20 20:26 From HALDOL Allergy Mild DROWSY Uncoded 07/28/20 17:43 From SEROQUEL Allergy Mild AUDITORY Uncoded 07/28/20 17:43 HALLUCINATIONS Review of Systems Review of Systems: Yes all other systems are reviewed and are negative Constitutional: Constitutional: Reports as per HPI and Reports no additional constitutional complaints Eyes: Eyes: Reports as per HPI and Reports no additional eye complaints ENT: Reports system reviewed and no additional complaints, except as documented and Reports as per HPI Cardiovascular: Cardiovascular: Reports as per HPI and Reports no additional cardiovascular complaints Respiratory: Respiratory: Reports as per HPI and Reports no additional respiratory complaints Gastrointestinal: Gastrointestinal: Reports as per HPI and Reports no additional gastrointestinal complaints Genitourinary: Genitourinary: Reports no additional female genitourinary complaints and Reports as per HPI Musculoskeletal: Musculoskeletal: Reports no additional musculoskeletal complaints and Reports as per HPI Neurologic: Reports system reviewed and no additional complaints, except as documented and Reports as per HPI [facility] Past Medical History Medical History Cannabis use disorder, moderate, dependence Cocaine use disorder Schizoaffective disorder Social History Social History Household Members: Other Household Members Other:: sister Housing: Apartment Do you presently have visiting nurse or other home services: No Alcohol intake: current Cigarette Packs Per Day: 0.5 Cigarettes Per Day: 10.0 Years Smoked: 23 Second Hand Smoke Exposure: No Substance Use Type: Crack/Cocaine Advance Directives: Yes Advance Directives Information Provided: Yes Advance Directives on File: No Patient : No service: No Sexual orientation: Straight/Heterosexual Physical Exam Vital Signs: Vital Signs: Last Vital Signs Temp 96.7 F L 06/02/21 09:36 Pulse 73 06/02/21 09:36 Resp 14 06/02/21 09:36 BP 100/49 L 06/02/21 09:36 Pulse Ox 99 06/02/21 09:36 Body Mass Index 24.7 Const: General: cooperative, healthy appearing, comfortable, no acute distress, well developed, alert, awake and Physically active Orientation/consciousness: patient oriented x3 HENMT: Head: Yes normal to inspection, Yes No palpable skull fracture present, Yes normocephalic, Yes atraumatic and No abrasion Eyes: General: appearance normal, both eyes and all related structures Neck: Neck: Yes normal visual inspection, Yes full ROM, Yes no lymphadenopathy, Yes no meningeal signs, Yes trachea midline, Yes supple and No tender Chest: Chest palpation & inspection: normal inspection of the chest and normal palpation of entire chest wall Resp: Effort & Inspection: normal respiratory effort and able to speak in complete sentences Auscultation: clear to auscultation bilaterally Cardio: Jugular venous distension: no JVD Heart sounds: S1 normal heart sound present and S2 normal heart sound present GI: Inspection: Yes normal to inspection and No abdominal wall ecchymosis Palpation (GI): Soft to palpation, not firm, nontender, no guarding and not rigid : General: Yes no CVA tenderness Back/Spine/Pelvis: Back: no CVA tenderness, No CVA tenderness and No back tenderness Skin: General skin exam: no rashes or lesions noted and elasticity normal Neuro: General: patient oriented x3, no meningeal signs and CN's II-XI intact bilaterally Cranial nerves: Yes CN's II-XII intact bilaterally Extrem: General: Yes normal to inspection and Yes full ROM Psych: Appearance: grossly normal, well kempt and not disheveled Course Course Course Narrative: Patient will be given a short course of risperidone for the weekend and follow up with psychiatrists Reevaluation(s) Reevaluation #1: Patient discharged with risperidone Time: 09:49 Medical Decision Making MDM Narrative Medical decision making narrative: Medication refill Discharge Plan Discharge Clinical Impression: Medication refill Patient Disposition: Home, Self-Care Instructions: Medicine Refill (ED) Additional Instructions: You were given short course of risperidone. Please call psychiatrist once again on Saturday to get refill for risperidone. Return to ED for any concerning symptoms. Please follow up with PCP. Prescriptions: New risperidone 3 mg tablet 3 mg PO BID 4 Days Qty: 8 RF: 0 No Action trazodone 50 mg Tablet 50 mg PO BEDTIME PRN (Reason: Insomnia) 30 Days RF: 0 naltrexone 50 mg Tablet 50 mg PO DAILY 30 Days Qty: 30 RF: 0 risperidone 3 mg Tablet 3 mg PO BID 30 Days Qty: 60 RF: 0 thiamine mononitrate (vit B1) 100 mg Tablet 100 mg PO DAILY 30 Days Qty: 30 RF: 0 nicotine 21 mg/24 hr Patch 24 Hour 21 mg transdermal DAILY 30 Days Qty: 30 RF: 0 mirtazapine 15 mg Tablet 15 mg PO BEDTIME Qty: 30 RF: 0 ferrous sulfate 324 mg (65 mg iron) Tablet,Delayed Release (Dr/Ec) 324 mg PO DAILY Qty: 30 RF: 0 Interventions: ED Discharge Assessment Last Done: 06/02/21 10:11 Discharge Date/Time: 06/02/21 10:13 Print Language: Polish
== END 2021-06-02 10:13 | disposition home or self-care (01) ==
PROVIDERS: Emergency Provider Emergency Medicine Emergency Medical Services
DX: Z76.0 Encounter for issue of repeat prescription (principal); Z79.899 Other long term (current) drug therapy; F17.210 Nicotine dependence, cigarettes, uncomplicated; Z71.6 Tobacco abuse counseling
CPT/HCPCS: 99283

== ENCOUNTER 2021-06-06 16:40 | Inpatient (IN) | payer OTHER, SELFPAY ==
--- NOTE | 2021-06-06 17:10 | ED_ITS ---
HPI - Psych General Chief Complaint: Psychiatric Symptoms Stated Complaint: SI Time Seen by Provider: 06/06/21 17:09 Source: patient and EMS Mode of arrival: EMS Limitations: no limitations History of Present Illness HPI Narrative: 40 y/o female with history of schizoaffective disorder, polysubstance abuse (cocaine, marijuana) who presents to the ER with reports of suicidal ideation, auditory hallucinations and visual hallucinations. She admits to using crack today and reports using it frequently. She also drinking heavy amounts of alcohol but none in the last few days. She reports suicidal thoughts with plan to jump off of a bridge. She is homeless but occasionally staying at her sister's house. She does not feel safe there with the voices she is hearing which prompted her to come to the ER for help. She reports hearing the voices last week and speaking with her Psychiatrist about. She reports compliance with her home psych meds. MD complaint: suicidal ideation and feels depressed Onset (ago): week(s) Duration: intermittent History of same: Yes Relieving factors: none Exacerbating factors: none Context: recent alcohol abuse and recent drug abuse Associated psychiatric symptoms: depression, suicidal ideation, homicidal ideation, auditory hallucinations and visual hallucinations Associated symptoms: denies other symptoms Treatments prior to arrival: none If self harm: admits thoughts of self harm and has plan Details of plan: jump off of a bridge Related Data Home Medications Medication Instructions Recorded Confirmed divalproex 1 tab PO DAILY 06/06/21 06/06/21 Previous Rx's Medication Instructions Recorded risperidone 3 mg PO BID 30 Days #60 tab 03/28/21 Allergies Allergy/AdvReac Type Severity Reaction Status Date / Time haloperidol [From HALDOL] Allergy Mild DROWSY Verified 11/06/20 20:26 From HALDOL Allergy Mild DROWSY Uncoded 07/28/20 17:43 From SEROQUEL Allergy Mild AUDITORY Uncoded 07/28/20 17:43 HALLUCINATIONS Review of Systems Review of Systems: Constitutional: No Fever, No Chills ENT/Mouth: No sore throat, No Rhinorrhea, No Swallowing Difficulty Cardiovascular: No Chest Pain, No SOB, No Orthopnea, No Edema Respiratory: No Cough, No Sputum, No Wheezing, No dyspnea Gastrointestinal: No Nausea, No Vomiting, No Diarrhea, No abdominal Pain Genitourinary: No Dysuria Musculoskeletal: No joint pain, No Myalgias Skin: No Skin Lesions, No rash Neuro: No Dizziness, No Headache Psych: + Anxiety/Panic, + Depression, +SI, +HI, +AH, +VH Heme/Lymph: No Bruising, No Lymphadenopathy PMFSH Past Medical History Attestation statement: The following information was validated with the patient. Medical History Cannabis use disorder, moderate, dependence Cocaine use disorder Schizoaffective disorder Social History Social History Household Members: Other Household Members Other:: sister Housing: Apartment Do you presently have visiting nurse or other home services: No Alcohol intake: current Cigarette Packs Per Day: 0.5 Cigarettes Per Day: 10.0 Years Smoked: 23 Second Hand Smoke Exposure: No Substance Use Type: Crack/Cocaine Advance Directives: No Advance Directives Information Provided: Yes Healthcare Proxy: No Guardian: No Patient : No service: No Sexual orientation: Straight/Heterosexual Physical Exam Vital Signs: Vital Signs: Last Vital Signs Temp 97.0 F 06/06/21 20:24 Pulse 64 06/06/21 20:24 Resp 20 06/06/21 20:24 BP 119/64 06/06/21 20:24 Pulse Ox 97 06/06/21 20:24 Body Mass Index 22.4 Appearance: Alert. Oriented X3. No acute distress. Eyes: Pupils equal, round and reactive to light. ENT: Pharynx normal. Neck: Normal inspection. Neck supple. CVS: Normal heart rate and rhythm. Pulses normal. Respiratory: No respiratory distress. Breath sounds normal. Abdomen: Soft and nontender. +BS x4 Skin: Skin warm and dry. Normal skin color. Normal skin turgor. No rashes. Extremities: No lower extremity edema. Neuro/psych: Oriented X 3. No motor deficit. No sensory deficit. CN II-XII grossly intact. +AH/VH, +SI, poor judgment Course Course Course Narrative: 40 y/o female with history of schizoaffective, depression, hx suicdie attempts in the past, substance abuse and alcohol abuse presenting with SI with plan, AH/VH. Will check labs, including utox, depakote level and upreg. Will need to be seen by N. Reevaluation(s) Reevaluation #1: 7:20pm - Lab workup unremarkable. Utox still pending. ETOH negative. She is medically cleared at this time. BHN consult placed. Physician observation started at 7:23pm. Patient placed in physician observation because patient is awaiting N evaluation for the possible need of inpatient psych admission. At the time observation was started patient's vital signs were stable. Patient is alert and oriented. Neuro exam is non-focal. CV: RRR and lungs are clear. Will continue to monitor. Reevaluation #2: 10:40pm - Patient seen by CARE team - recommending inpatient level of care. Bed search initiated. Will continue to monitor Consultations Consultation #1: CARE TEAM MDM - Psych Lab Data Result diagrams: 06/06/21 18:41 06/06/21 18:41 Labs: Lab Results 06/06/21 06/06/21 06/06/21 Range/Units 17:24 18:41 18:41 WBC 8.9 (4.8-10.8) X10*3/uL RBC 4.55 (4.20-5.50) X10*6/uL Hgb 12.4 (12.0-16.0) g/dl Hct 37.9 (37-47) % MCV 83.3 (80-98) fL MCH 27.3 (27.0-33.0) pg MCHC 32.7 (31.0-35.0) g/dl RDW 14.7 (11.0-16.0) % Plt Count 401 H (160-400) X10*3/uL MPV 9.3 L (9.4-12.3) fL Immature Gran % (Auto) 0.2 (0.0-0.4) % Neut % (Auto) 65.3 (45-73) % Lymph % (Auto) 16.6 L (20-40) % [place] % (Auto) 7.4 (2-11) % Eos % (Auto) 10.1 H (0-4) % Baso % (Auto) 0.4 (0-2) % Lymph # (Auto) 1.5 (1.2-4.9) X10*3/uL [place] # (Auto) 0.7 (0.1-1.2) X10*3/uL Eos # (Auto) 0.9 H (0.0-0.4) X10*3/uL Baso # (Auto) 0.0 (0.0-0.2) X10*3/uL Abs Immat Gran (auto) 0.02 (0.00-0.03) X10*3/uL Absolute Neuts (auto) 5.8 (2.0-8.3) X10*3/uL Absolute Nucleated RBC 0.000 (0.0-0.012) X10*3/uL Nucleated RBC % (auto) 0.0 (0.0-0.2) /100WBC Sodium 141 (135-145) mmol/L Potassium 4.1 (3.3-5.1) mmol/L Chloride 107 (96-108) mmol/L Carbon Dioxide 23 (22-29) mmol/L Anion Gap 15 (12-20) BUN 20 H D (9-16) mg/dL Creatinine 1.30 (0.5-1.4) mg/dL Estim Creat Clear Calc 41.7 Estimated GFR 46 Random Glucose 128 H D (60-115) mg/dL Calcium 10.0 D (8.4-10.2) mg/dL Total Bilirubin 0.4 (0.0-1.0) mg/dL Direct Bilirubin 0.2 (0.0-0.5) mg/dL AST 21 D (5-31) U/L ALT 10 (0-31) U/L Alkaline Phosphatase 47 (39-117) U/L Total Protein 7.7 (6.5-8.0) g/dL Albumin 4.4 (3.5-5.0) g/dL Urine Color Urine Appearance Urine pH (5.0-8.0) Ur Specific [place] (1.005-1.025) Urine Protein (NEG-TRACE) MG/DL Urine Glucose (UA) (NEG) MG/DL Urine Ketones (NEG) MG/DL Urine Blood (NEG) Urine Nitrite (NEG) Ur Leukocyte Esterase (NEG) Urine Test (NEGATIVE) Urine Opiates Screen (Not Detect) Ur Barbiturates Screen (Not Detect) Valproic Acid (50.0-100.0) mcg/mL Ur Phencyclidine Scrn (Not Detect) Ur Amphetamines Screen (Not Detect) U Benzodiazepines Scrn (Not Detect) Urine Cocaine Screen (Not Detect) U Marijuana (THC) Screen (Not Detect) Ethyl Alcohol mg/dL COVID-19 (VAISHNAVI) Negative (Negative) COVID-19 Clin Com See Note 06/06/21 06/06/21 06/06/21 Range/Units 18:41 18:41 20:52 WBC (4.8-10.8) X10*3/uL RBC (4.20-5.50) X10*6/uL Hgb (12.0-16.0) g/dl Hct (37-47) % MCV (80-98) fL MCH (27.0-33.0) pg MCHC (31.0-35.0) g/dl RDW (11.0-16.0) % Plt Count (160-400) X10*3/uL MPV (9.4-12.3) fL Immature Gran % (Auto) (0.0-0.4) % Neut % (Auto) (45-73) % Lymph % (Auto) (20-40) % [place] % (Auto) (2-11) % Eos % (Auto) (0-4) % Baso % (Auto) (0-2) % Lymph # (Auto) (1.2-4.9) X10*3/uL [place] # (Auto) (0.1-1.2) X10*3/uL Eos # (Auto) (0.0-0.4) X10*3/uL Baso # (Auto) (0.0-0.2) X10*3/uL Abs Immat Gran (auto) (0.00-0.03) X10*3/uL Absolute Neuts (auto) (2.0-8.3) X10*3/uL Absolute Nucleated RBC (0.0-0.012) X10*3/uL Nucleated RBC % (auto) (0.0-0.2) /100WBC Sodium (135-145) mmol/L Potassium (3.3-5.1) mmol/L Chloride (96-108) mmol/L Carbon Dioxide (22-29) mmol/L Anion Gap (12-20) BUN (9-16) mg/dL Creatinine (0.5-1.4) mg/dL Estim Creat Clear Calc Estimated GFR Random Glucose (60-115) mg/dL Calcium (8.4-10.2) mg/dL Total Bilirubin (0.0-1.0) mg/dL Direct Bilirubin (0.0-0.5) mg/dL AST (5-31) U/L ALT (0-31) U/L Alkaline Phosphatase (39-117) U/L Total Protein (6.5-8.0) g/dL Albumin (3.5-5.0) g/dL Urine Color Urine Appearance Urine pH (5.0-8.0) Ur Specific [place] (1.005-1.025) Urine Protein (NEG-TRACE) MG/DL Urine Glucose (UA) (NEG) MG/DL Urine Ketones (NEG) MG/DL Urine Blood (NEG) Urine Nitrite (NEG) Ur Leukocyte Esterase (NEG) Urine Test NEGATIVE (NEGATIVE) Urine Opiates Screen (Not Detect) Ur Barbiturates Screen (Not Detect) Valproic Acid < 2.0 L (50.0-100.0) mcg/mL Ur Phencyclidine Scrn (Not Detect) Ur Amphetamines Screen (Not Detect) U Benzodiazepines Scrn (Not Detect) Urine Cocaine Screen (Not Detect) U Marijuana (THC) Screen (Not Detect) Ethyl Alcohol < 10 mg/dL COVID-19 (VAISHNAVI) (Negative) COVID-19 Clin Com 06/06/21 06/06/21 Range/Units 20:52 20:52 WBC (4.8-10.8) X10*3/uL RBC (4.20-5.50) X10*6/uL Hgb (12.0-16.0) g/dl Hct (37-47) % MCV (80-98) fL MCH (27.0-33.0) pg MCHC (31.0-35.0) g/dl RDW (11.0-16.0) % Plt Count (160-400) X10*3/uL MPV (9.4-12.3) fL Immature Gran % (Auto) (0.0-0.4) % Neut % (Auto) (45-73) % Lymph % (Auto) (20-40) % [place] % (Auto) (2-11) % Eos % (Auto) (0-4) % Baso % (Auto) (0-2) % Lymph # (Auto) (1.2-4.9) X10*3/uL [place] # (Auto) (0.1-1.2) X10*3/uL Eos # (Auto) (0.0-0.4) X10*3/uL Baso # (Auto) (0.0-0.2) X10*3/uL Abs Immat Gran (auto) (0.00-0.03) X10*3/uL Absolute Neuts (auto) (2.0-8.3) X10*3/uL Absolute Nucleated RBC (0.0-0.012) X10*3/uL Nucleated RBC % (auto) (0.0-0.2) /100WBC Sodium (135-145) mmol/L Potassium (3.3-5.1) mmol/L Chloride (96-108) mmol/L Carbon Dioxide (22-29) mmol/L Anion Gap (12-20) BUN (9-16) mg/dL Creatinine (0.5-1.4) mg/dL Estim Creat Clear Calc Estimated GFR Random Glucose (60-115) mg/dL Calcium (8.4-10.2) mg/dL Total Bilirubin (0.0-1.0) mg/dL Direct Bilirubin (0.0-0.5) mg/dL AST (5-31) U/L ALT (0-31) U/L Alkaline Phosphatase (39-117) U/L Total Protein (6.5-8.0) g/dL Albumin (3.5-5.0) g/dL Urine Color YELLOW Urine Appearance CLEAR Urine pH 6.0 (5.0-8.0) Ur Specific [place] >= 1.030 H (1.005-1.025) Urine Protein TRACE (NEG-TRACE) MG/DL Urine Glucose (UA) NEG (NEG) MG/DL Urine Ketones 5 (NEG) MG/DL Urine Blood NEG (NEG) Urine Nitrite NEG (NEG) Ur Leukocyte Esterase NEG (NEG) Urine Test (NEGATIVE) Urine Opiates Screen Not Detected (Not Detect) Ur Barbiturates Screen Not Detected (Not Detect) Valproic Acid (50.0-100.0) mcg/mL Ur Phencyclidine Scrn Not Detected (Not Detect) Ur Amphetamines Screen Not Detected (Not Detect) U Benzodiazepines Scrn Not Detected (Not Detect) Urine Cocaine Screen POSITIVE H (Not Detect) U Marijuana (THC) Screen POSITIVE H (Not Detect) Ethyl Alcohol mg/dL COVID-19 (VAISHNAVI) (Negative) COVID-19 Clin Com Discharge Plan Discharge Clinical Impression: Suicidal ideation Schizoaffective disorder Qualifiers: Schizoaffective disorder type: unspecified Qualified Code(s): F25.9 - Schizoaffective disorder, unspecified Prescriptions: No Action risperidone 3 mg Tablet 3 mg PO BID 30 Days Qty: 60 RF: 0 divalproex 500 mg tablet extended release 24 hr 1 tab PO DAILY RF: 0
[2021-06-06 17:11] VITALS: BP 122/78; BP 137/82; PULSE 68; PULSE 94; RESP 16; TEMP 36.5; O2SAT 98; BMI 22.4
[2021-06-06 18:11] LABS: COVID-19 Test Negative (Negative)
--- NOTE | 2021-06-06 18:44 | PHA.MEDREC ---
Pharmacy Consult ? Medication Reconciliation Pharmacy has completed the medication reconciliation.
[2021-06-06 18:47] LABS: MANUAL DIFF FLAG NO
[2021-06-06 18:48] LABS: Basophils Percent Auto 0.4 % (0-2); Eosinophils Absolute Auto 0.9 X10*3/uL (0.0-0.4); Eosinophils Percent Auto 10.1 % (0-4); Hematocrit 37.9 % (37-47); Hemoglobin 12.4 g/dl (12.0-16.0); Imm Gran Abs Auto 0.02 X10*3/uL (0.00-0.03); Imm Gran Pct Auto 0.2 % (0.0-0.4); Lymphocytes Absolute Auto 1.5 X10*3/uL (1.2-4.9); Lymphocytes Percent Auto 16.6 % (20-40); Mean Corpuscular HGB Conc 32.7 g/dl (31.0-35.0); Mean Corpuscular Hemoglobin 27.3 pg (27.0-33.0); Mean Corpuscular Volume 83.3 fL (80-98); Mean Platelet Volume 9.3 fL (9.4-12.3); Monocytes Absolute Auto 0.7 X10*3/uL (0.1-1.2); Monocytes Percent Auto 7.4 % (2-11); Neutrophils Absolute Auto 5.8 X10*3/uL (2.0-8.3); Neutrophils Percent Auto 65.3 % (45-73); Platelet Count 401 X10*3/uL (160-400); Red Blood Count 4.55 X10*6/uL (4.20-5.50); Red Cell Distribution Width 14.7 % (11.0-16.0); White Blood Count 8.9 X10*3/uL (4.8-10.8)
[2021-06-06 19:08] LABS: Ethanol < 10 mg/dL
[2021-06-06 19:13] LABS: Alanine Aminotransferase 10 U/L (0-31); Albumin Level 4.4 g/dL (3.5-5.0); Alkaline Phosphatase 47 U/L (39-117); Anion Gap 15 (12-20); Aspartate Amino Transferase 21 U/L (5-31); Bilirubin Direct 0.2 mg/dL (0.0-0.5); Bilirubin Total 0.4 mg/dL (0.0-1.0); Blood Urea Nitrogen 20 mg/dL (9-16); Carbon Dioxide 23 mmol/L (22-29); Chloride 107 mmol/L (96-108); Creatinine Clr Calc Pharmacy 41.7; Estimated Glomerular Filt Rate 46; Glucose Random 128 mg/dL (60-115); Potassium 4.1 mmol/L (3.3-5.1); Sodium 141 mmol/L (135-145); Total Protein 7.7 g/dL (6.5-8.0)
[2021-06-06 19:19] LABS: Valproate < 2.0 mcg/mL (50.0-100.0)
--- NOTE | 2021-06-06 20:17 | MHC.CARE ---
N unable to send clinician to complete assessment this evening. CARE team will complete assessment. [facility] will notify [facility].
[2021-06-06] MEDS: risperiDONE 3 MG TABLET PO (20:22)
[2021-06-06 20:24] VITALS: BP 119/64; PULSE 64; RESP 20; TEMP 36.1; O2SAT 97
[2021-06-06 21:05] LABS: Glucose Urine UA NEG (NEG); Leukocyte Esterase Urine NEG (NEG); Nitrite Urine NEG (NEG); Specific Gravity - Urine >= 1.030 (1.005-1.025); Urine Blood NEG (NEG); Urine Ketones 5 MG/DL (NEG); Urine Protein TRACE MG/DL (NEG-TRACE)
[2021-06-06 21:08] LABS: Appearance Urine CLEAR; Color Urine YELLOW
[2021-06-06 21:09] LABS: UPreg QC Valid YES; Urine Pregnancy NEGATIVE (NEGATIVE)
[2021-06-06 21:32] LABS: Amphetamine Screen Urine Not Detected (Not Detect); Barbiturates, Urine Not Detected (Not Detect); Benzodiazepines Screen Urine Not Detected (Not Detect); Cannabinoid Screen Urine POSITIVE (Not Detect); Cocaine Screen Urine POSITIVE (Not Detect); Opiate Screen Urine Not Detected (Not Detect); Phencyclidine Screen Urine Not Detected (Not Detect)
--- NOTE | 2021-06-06 22:59 | MHC.CARE ---
CARE team completed evaluation. Disposition is for inpt psych placement. Sect 12a signed and placed in chart.
--- NOTE | 2021-06-07 06:33 | PC.NURSE ---
Patient slept through the night, no distress observed/reported, med compliant, behavior appropriate, mood depressed, VSS, disposition section 12 inpatient bed search, will continue to monitor.
[2021-06-07 06:38] VITALS: BP 103/60; PULSE 54; RESP 16; TEMP 36.9; O2SAT 97
[2021-06-07 08:27] VITALS: BP 100/50; PULSE 90; RESP 16; TEMP 36.6; O2SAT 97
[2021-06-07] MEDS: Divalproex Sodium ER 500 MG TAB.ER.24H PO (08:49)
[2021-06-07] MEDS: risperiDONE 3 MG TABLET PO ×2 (08:49→21:03)
[2021-06-07 16:22] VITALS: BP 109/55; PULSE 64; RESP 20; TEMP 36.8; O2SAT 98
[2021-06-08 06:18] VITALS: BP 101/63; PULSE 55; RESP 16; TEMP 36.5; O2SAT 98
--- NOTE | 2021-06-08 06:28 | PC.NURSE ---
Patient slept through the night, no distress reported, med compliant, appetite good, behavior mostly appropriate, disposition is section 12 inpatient bed search, VSS, will continue to monitor.
[2021-06-08] MEDS: Divalproex Sodium ER 500 MG TAB.ER.24H PO (09:01)
[2021-06-08] MEDS: risperiDONE 3 MG TABLET PO ×2 (09:01→19:55)
[2021-06-08 09:08] VITALS: BP 118/67; PULSE 73; RESP 17; TEMP 37.3; O2SAT 98
--- NOTE | 2021-06-08 09:10 | ECG_ITS ---
Test Reason : MEDICAL CLEARANCE Blood Pressure : / mmHG Vent. Rate : 059 BPM Atrial Rate : 059 BPM P-R Int : 134 ms QRS Dur : 084 ms QT Int : 458 ms P-R-T Axes : 016 048 028 degrees QTc Int : 453 ms Sinus bradycardia Nonspecific ST and T wave abnormality Borderline ECG When compared with ECG of 21-MAR-2021 11:13, No significant change was found Referred By: Amrit Murphy Electronically Signed By:MATHEUS FLAHERTY
[2021-06-08] MEDS: LORazepam 1 MG TABLET 2 MG PO (15:24)
[2021-06-08 15:46] VITALS: BP 109/58; PULSE 66; RESP 14; TEMP 36.9; O2SAT 98
[2021-06-08 17:34] VITALS: BP 100/51; PULSE 70; RESP 16; TEMP 36.3; O2SAT 98
--- NOTE | 2021-06-08 19:18 | PC.ADMIT ---
PT. IS A 40 YEAR OLD SINGLE MONGOLIAN SPEAKING FEMALE WHO PRESENTS TO M [facility] [place] [facility] [facility] [place] APPROX. 16:50 ON A CV STATUS. PT. IS COVID NEG., UTOX POSITIVE FOR COCAINE AND MARIJUANA. PT. WAS LAST AN INPATIENT ON M 5 ABOUT 2 MONTH AGO, HER DX ARE SCHIZOAFFECTIVE DISORDER, COCAINE USE DISORDER, MODERATE AND ALCOHOL USE DISORDER, MODERATE. PT. CALLED EMS SECONDARY TO INCREASED DEPRESSION, SI AND AH BECOMING MORE INTRUSIVE AND COMMAND IN NATURE. PT. STATED DURING ADMISSION PROCESS, THE IS RIGHT THERE, KNOCKING ON MY DOOR. I DON'T WANT THAT TO HAPPEN . PT. STATED MY COCAINE ADDICTION IS KILLING ME . CONSEQUENTLY SHE IS NOT MED.COMPLIANT. PT. REPORTED RISPERDALE AND ATIVAN HAS BEEN HELPFUL IN PAST. PT. WAS COOPERATIVE AND FOCUSED WHEN ANSWERING ADMISSION QUESTIONS. HER AFFECT WAS FLAT, SHE DENIED SI, SH, HI, SHE REPORTED AVH, DEPRESSION AND ANXIETY, BEING FATIGUED, SHE FIRST DENIED PAIN, THAN REPORTED BONE PAIN WHEN AMBULATING, BUT IMPROVING SINCE IN ED. MEDICATION ORDERS WERE RECEIVED FROM DR. ROLANDA NAVARRO, PT. SIGNED CONSENT FORMS, TREATMENT PLAN AND SAFETY TOOL. SHE ATE DINNER, STATED TO FEEL SAFE. PT. IS A DAILY 1 PACK CIGARETTE SMOKER, NICOTINE REPLACEMENT WAS ORDERED, VS STABLE.
[2021-06-08] MEDS: hydrOXYzine HCL 25 MG TABLET PO (19:55)
[2021-06-08] MEDS: traZODone HCL 50 MG TABLET PO (19:55)
[2021-06-08 20:55] VITALS: BP 93/50; PULSE 112
[2021-06-09] MEDS: Divalproex Sodium ER 500 MG TAB.ER.24H PO (09:53)
[2021-06-09] MEDS: risperiDONE 3 MG TABLET PO ×2 (09:53→20:23)
[2021-06-09 13:23] VITALS: BP 80/50; PULSE 78; RESP 16; TEMP 36.6; O2SAT 97
--- NOTE | 2021-06-09 13:24 | PC.NURSE ---
Approached to compete admission assessment. Pt declined No maybe later
--- NOTE | 2021-06-09 13:26 | PC.NURSE ---
Patient denies smoking at this time. declined to have nicotine replacement.
[2021-06-09 16:20] VITALS: BP 110/73; PULSE 68; TEMP 36.2
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
[2021-06-09] MEDS: risperiDONE 1 MG TABLET PO (18:25)
[2021-06-10 06:00] VITALS: BP 86/42; PULSE 53; RESP 18; TEMP 35.8; O2SAT 97
[2021-06-10] MEDS: Divalproex Sodium ER 500 MG TAB.ER.24H PO (08:32)
[2021-06-10] MEDS: risperiDONE 3 MG TABLET PO ×2 (08:32→22:03)
--- NOTE | 2021-06-10 15:30 | HO.PSYCHPN ---
Subjective Subjective Date of Service: 06/10/21 Reason For Visit: Psychosis Interim History: Individual has no immediate concerns. She has been hearing derogatory voices, and states she feels depressed. Medication Compliance: Yes Side effects from medications: No Attending Groups: No Review of Systems Acute medical concerns: No Medical Review of Systems: unchanged Review of Systems Review of Systems Constitutional: No Fever, No Chills ENT/Mouth: No sore throat, No Rhinorrhea, No Swallowing Difficulty Cardiovascular: No Chest Pain, No SOB, No Orthopnea, No Edema Respiratory: No Cough, No Sputum, No Wheezing, No dyspnea Gastrointestinal: No Nausea, No Vomiting, No Diarrhea, No abdominal Pain Genitourinary: No Dysuria Musculoskeletal: No joint pain, No Myalgias Skin: No Skin Lesions, No rash Neuro: No Dizziness, No Headache Psych: + Anxiety/Panic, + Depression, +SI, +HI, +AH, +VH Heme/Lymph: No Bruising, No Lymphadenopathy Psychiatric: Reports auditory hallucinations, Reports hopelessness, Reports anhedonia, Denies homicidal ideation and Denies suicidal ideation Mental Status Exam Mental Status Exam Narrative: Pt is alert and oriented; behavior is moderately cooperative, calm; patient is not in distress; dressed in hospital gown with adequate hygiene; mood is described as depressed and affect congruent, flat; eye contact appropriate; Speech is monotone; not pressured; no psychomotor agitation/retardation present; thought process is goal directed and concrete. Thought content is on getting treatment, but somewhat vacuous, though overall pertinent to relevant topics and without any delusional content, paranoid ideations or grandiosity; denies any SI/HI. Patient endorses auditory hallucinations and says she can hear voices talking to each other about her. ?Patients insight and judgment appear impaired. Patient Appearance: Well Grooomed Level of Consciousness: Awake and Appropriate Patient Behavior: Appropriate Mood Description: Apathetic Affect Description: Apathetic Patient Cognition Impaired: No Ability to Follow Directions: Good Speech Pattern: Clear and Spontaneous Speech Hallucinations: Auditory Delusions: Paranoid Ideation Thought Process: Rumination Thought Content: negative for Suicidal Ideation or negative for Homicidal Ideation Diagnostics Vital Signs (24Hr): Vital Signs - 24 hr 06/09/21 16:20 06/10/21 06:00 Temperature 97.2 F 96.4 F L Pulse Rate 68 53 Respiratory Rate 18 Blood Pressure 110/73 86/42 L Pulse Oximetry 97 Body Mass Index 22.4 Labs Results: 06/06/21 18:41 06/06/21 18:41 Medications Medications Current Medications Generic Name Dose Route Start Last Admin Trade Name Freq PRN Reason Stop Dose Admin Acetaminophen 650 mg 06/08/21 16:58 Acetaminophen 325 Mg Tablet PO Q6H PRN Headache/Pain Mild Scale (1-3) Al Hydroxide/Mg Hydroxide 30 ml 06/08/21 16:58 Magnesium Hydrox/Alum Hydrox 30 Ml Oral.Susp PO Q6H PRN Heartburn/Nausea Divalproex Sodium 500 mg 06/07/21 09:00 06/10/21 08:32 Divalproex Sodium Er 500 Mg Tab.Er.24h PO 500 mg DAILY YUDITH Administration Hydroxyzine HCl 25 mg 06/08/21 16:58 06/08/21 19:55 Hydroxyzine Hcl 25 Mg Tablet PO 25 mg BEDTIME PRN Administration Anxiety Magnesium Hydroxide 30 ml 06/08/21 16:58 Milk Of Magnesia 30 Ml Oral.Susp PO DAILY PRN Constipation Pharmacy Consult 1 each 06/06/21 17:10 Consult Rx Perform Med Rec MISCELLANE ONCE PRN Consult order Risperidone 3 mg 06/06/21 21:00 06/10/21 08:32 Risperidone 3 Mg Tablet PO 3 mg BID YUDITH Administration Trazodone HCl 50 mg 06/08/21 16:58 06/08/21 19:55 Trazodone Hcl 50 Mg Tablet PO 50 mg BEDTIME PRN Administration Insomnia Allergies Allergies Allergy/AdvReac Type Severity Reaction Status Date / Time haloperidol [From HALDOL] Allergy Mild DROWSY Verified 11/06/20 20:26 From HALDOL Allergy Mild DROWSY Uncoded 07/28/20 17:43 From SEROQUEL Allergy Mild AUDITORY Uncoded 07/28/20 17:43 HALLUCINATIONS Assessment & Plan Assessment & Plan (1) Schizoaffective disorder: Qualifiers: Schizoaffective disorder type: unspecified Qualified Code(s): F25.9 - Schizoaffective disorder, unspecified Status: Acute Code(s): F25.9 - Schizoaffective disorder, unspecified (2) Cocaine use disorder: Status: Acute Code(s): F14.10 - Cocaine abuse, uncomplicated Assessment and Plan: IMPRESSION: Patient is a 40-year-old female, recently discharged from [facility] about a month ago, with history of schizoaffective disorder who presents for depression, psychotic symptoms and SI, in face of relapse with cocaine subsequent decreased adherence with medications. Patient has flat affect and talks in a monotone voice; she reports feeling depressed and bothered by auditory hallucinations. However she says that her medications of Depakote and Risperdal, when taking consistently resolved the symptoms and she thoughts wants to continue. Patient reports wanting to go to a [facility]. Suicidal ideation has resolved. Will admit for safety and stabilization PLAN: Patient on CV Q 15 minutes checks Continue home medications of Depakote (liver enzymes WNL; patient educated on terrotogen to which she says she is not sexually active). Continue home medication of Risperdal No change to the above plan Greater than 50% of the session was spent on counseling and/or coordination of care Patient educated on: diagnosis and medication risk/benefits Informed Consent: further education needed Reason for contiued inpatient stay Substantial Risk for: inability to function and rapid decompensation
[2021-06-10] MEDS: hydrOXYzine HCL 25 MG TABLET PO (19:16)
[2021-06-11 06:00] VITALS: BP 107/59; PULSE 88; RESP 18; TEMP 36.5; O2SAT 98
[2021-06-11] MEDS: risperiDONE 3 MG TABLET PO ×2 (08:50→20:15)
[2021-06-11] MEDS: Divalproex Sodium ER 500 MG TAB.ER.24H PO (08:50)
[2021-06-11] MEDS: LORazepam 1 MG TABLET PO ×2 (14:09→18:39)
--- NOTE | 2021-06-11 17:01 | P.PNPSI_ITS ---
Subjective Subjective Date of Service: 06/11/21 Reason For Visit: Psychosis Interim History: Individual has no immediate concerns. She has been hearing derogatory voices, and states she feels depressed. At times she was quite anxious and was offered ativan to de-escalate Medication Compliance: Yes Side effects from medications: No Attending Groups: No Review of Systems Acute medical concerns: No Medical Review of Systems: unchanged Review of Systems Review of Systems Constitutional: No Fever, No Chills ENT/Mouth: No sore throat, No Rhinorrhea, No Swallowing Difficulty Cardiovascular: No Chest Pain, No SOB, No Orthopnea, No Edema Respiratory: No Cough, No Sputum, No Wheezing, No dyspnea Gastrointestinal: No Nausea, No Vomiting, No Diarrhea, No abdominal Pain Genitourinary: No Dysuria Musculoskeletal: No joint pain, No Myalgias Skin: No Skin Lesions, No rash Neuro: No Dizziness, No Headache Psych: + Anxiety/Panic, + Depression, +SI, +HI, +AH, +VH Heme/Lymph: No Bruising, No Lymphadenopathy Psychiatric: Reports auditory hallucinations, Reports hopelessness, Reports anhedonia, Denies homicidal ideation and Denies suicidal ideation Mental Status Exam Mental Status Exam Narrative: Pt is alert and oriented; behavior is moderately cooperative, calm; patient is not in distress; dressed in hospital gown with adequate hygiene; mood is described as depressed and affect congruent, flat; eye contact appropriate; Speech is monotone; not pressured; no psychomotor agitation/retardation present; thought process is goal directed and concrete. Thought content is on getting treatment, but somewhat vacuous, though overall pertinent to relevant topics and without any delusional content, paranoid ideations or grandiosity; denies any SI/HI. Patient endorses auditory hallucinations and says she can hear voices talking to each other about her. ?Patients insight and judgment appear impaired. Patient Appearance: Well Grooomed Level of Consciousness: Awake and Appropriate Patient Behavior: Appropriate Mood Description: Apathetic Affect Description: Apathetic Patient Cognition Impaired: No Ability to Follow Directions: Good Speech Pattern: Clear and Spontaneous Speech Thought Content: negative for Suicidal Ideation or negative for Homicidal Ideation Diagnostics Vital Signs (24Hr): Vital Signs - 24 hr 06/11/21 06:00 Temperature 97.7 F Pulse Rate 88 Respiratory Rate 18 Blood Pressure 107/59 L Pulse Oximetry 98 Body Mass Index 22.4 Labs Results: 06/06/21 18:41 06/06/21 18:41 Medications Medications Current Medications Generic Name Dose Route Start Last Admin Trade Name Freq PRN Reason Stop Dose Admin Acetaminophen 650 mg 06/08/21 16:58 Acetaminophen 325 Mg Tablet PO Q6H PRN Headache/Pain Mild Scale (1-3) Al Hydroxide/Mg Hydroxide 30 ml 06/08/21 16:58 Magnesium Hydrox/Alum Hydrox 30 Ml Oral.Susp PO Q6H PRN Heartburn/Nausea Divalproex Sodium 500 mg 06/07/21 09:00 06/11/21 08:50 Divalproex Sodium Er 500 Mg Tab.Er.24h PO 500 mg DAILY YUDITH Administration Hydroxyzine HCl 25 mg 06/08/21 16:58 06/10/21 19:16 Hydroxyzine Hcl 25 Mg Tablet PO 25 mg BEDTIME PRN Administration Anxiety Lorazepam 1 mg 06/11/21 14:24 Lorazepam 1 Mg Tablet PO Q4H PRN anxiety/restlessness Magnesium Hydroxide 30 ml 06/08/21 16:58 Milk Of Magnesia 30 Ml Oral.Susp PO DAILY PRN Constipation Pharmacy Consult 1 each 06/06/21 17:10 Consult Rx Perform Med Rec MISCELLANE ONCE PRN Consult order Risperidone 3 mg 06/06/21 21:00 06/11/21 08:50 Risperidone 3 Mg Tablet PO 3 mg BID YUDITH Administration Trazodone HCl 50 mg 06/08/21 16:58 06/08/21 19:55 Trazodone Hcl 50 Mg Tablet PO 50 mg BEDTIME PRN Administration Insomnia Allergies Allergies Allergy/AdvReac Type Severity Reaction Status Date / Time haloperidol [From HALDOL] Allergy Mild DROWSY Verified 11/06/20 20:26 From HALDOL Allergy Mild DROWSY Uncoded 07/28/20 17:43 From SEROQUEL Allergy Mild AUDITORY Uncoded 07/28/20 17:43 HALLUCINATIONS Assessment & Plan Assessment & Plan (1) Schizoaffective disorder: Qualifiers: Schizoaffective disorder type: unspecified Qualified Code(s): F25.9 - Schizoaffective disorder, unspecified Status: Acute Code(s): F25.9 - Schizoaffective disorder, unspecified (2) Cocaine use disorder: Status: Acute Code(s): F14.10 - Cocaine abuse, uncomplicated Assessment and Plan: IMPRESSION: Patient is a 40-year-old female, recently discharged from [facility] about a month ago, with history of schizoaffective disorder who presents for depression, psychotic symptoms and SI, in face of relapse with cocaine subsequent decreased adherence with medications. Patient has flat affect and talks in a monotone voice; she reports feeling depressed and bothered by auditory hallucinations. However she says that her medications of Depakote and Risperdal, when taking consistently resolved the symptoms and she thoughts wants to continue. Patient reports wanting to go to a [facility]. Suicidal ideation has resolved. Will admit for safety and stabilization PLAN: Patient on CV Q 15 minutes checks Continue home medications of Depakote (liver enzymes WNL; patient educated on terrotogen to which she says she is not sexually active). Continue home medication of Risperdal No change to the above plan Greater than 50% of the session was spent on counseling and/or coordination of care Patient educated on: diagnosis and medication risk/benefits Informed Consent: further education needed Reason for contiued inpatient stay Substantial Risk for: rapid decompensation
[2021-06-11 18:00] VITALS: BP 111/54; PULSE 60; TEMP 36.8
[2021-06-12 06:00] VITALS: BP 115/51; PULSE 74; RESP 18; TEMP 36.1; O2SAT 99
[2021-06-12] MEDS: Divalproex Sodium ER 500 MG TAB.ER.24H PO (08:19)
[2021-06-12] MEDS: risperiDONE 3 MG TABLET PO ×2 (08:19→20:01)
--- NOTE | 2021-06-12 10:50 | HO.PSYCHPN ---
Subjective Subjective Date of Service: 06/12/21 Reason For Visit: Psychosis Interim History: Staff reports pt had difficult day yesterday, swearing at staff, getting into an altercation with peers. Pt needed prn Haldol to calm down Today pt sought out specifications writer and asked for discharge tomorrow. She apologized to specifications writer for her behavior yesterday and said it was because staff was saying things to her, like why don't you go to her father's house; she said she does not live with her father, she lives with her sister and that these comments triggered her. Grain Elevator Operator asked about AH to which she says they are fully resolved and this was not AH, but staff. Pt agreed to remain for a few more days to demonstrate stability. She denies depression saying she is in a good mood; she denies any SI or HI and reiterates that AH have resolved. Mental Status Exam Mental Status Exam Narrative: Pt is alert and oriented; behavior is cooperative, calm; patient is not in distress; dressed in hospital gown with adequate hygiene, hair in braided dred locks; mood is described as good and affect congruent, bright; eye contact appropriate; Speech is normal rate, volume and prosody; not pressured; no psychomotor agitation/retardation present; thought process is goal directed and concrete. Thought content is on getting discharge but otherwise overall pertinent to relevant topics and without any delusional content, paranoid ideations or grandiosity; denies any SI/HI.? Patient reports auditory hallucinations have resolved; Patients insight and judgment appear impaired but improving. Diagnostics Vital Signs (24Hr): Vital Signs - 24 hr 06/11/21 18:00 06/12/21 06:00 Temperature 98.2 F 97 F Pulse Rate 60 74 Respiratory Rate 18 Blood Pressure 111/54 L 115/51 L Pulse Oximetry 99 Body Mass Index 22.4 Labs Results: 06/06/21 18:41 06/06/21 18:41 Medications Medications Current Medications Generic Name Dose Route Start Last Admin Trade Name Freq PRN Reason Stop Dose Admin Acetaminophen 650 mg 06/08/21 16:58 Acetaminophen 325 Mg Tablet PO Q6H PRN Headache/Pain Mild Scale (1-3) Al Hydroxide/Mg Hydroxide 30 ml 06/08/21 16:58 Magnesium Hydrox/Alum Hydrox 30 Ml Oral.Susp PO Q6H PRN Heartburn/Nausea Divalproex Sodium 500 mg 06/07/21 09:00 06/12/21 08:19 Divalproex Sodium Er 500 Mg Tab.Er.24h PO 500 mg DAILY YUDITH Administration Hydroxyzine HCl 25 mg 06/08/21 16:58 06/10/21 19:16 Hydroxyzine Hcl 25 Mg Tablet PO 25 mg BEDTIME PRN Administration Anxiety Lorazepam 1 mg 06/11/21 14:24 06/11/21 18:39 Lorazepam 1 Mg Tablet PO 1 mg Q4H PRN Administration anxiety/restlessness Magnesium Hydroxide 30 ml 06/08/21 16:58 Milk Of Magnesia 30 Ml Oral.Susp PO DAILY PRN Constipation Pharmacy Consult 1 each 06/06/21 17:10 Consult Rx Perform Med Rec MISCELLANE ONCE PRN Consult order Risperidone 3 mg 06/06/21 21:00 06/12/21 08:19 Risperidone 3 Mg Tablet PO 3 mg BID YUDITH Administration Trazodone HCl 50 mg 06/08/21 16:58 06/08/21 19:55 Trazodone Hcl 50 Mg Tablet PO 50 mg BEDTIME PRN Administration Insomnia Allergies Allergies Allergy/AdvReac Type Severity Reaction Status Date / Time haloperidol [From HALDOL] Allergy Mild DROWSY Verified 11/06/20 20:26 From HALDOL Allergy Mild DROWSY Uncoded 07/28/20 17:43 From SEROQUEL Allergy Mild AUDITORY Uncoded 07/28/20 17:43 HALLUCINATIONS Assessment & Plan Assessment & Plan (1) Schizoaffective disorder: Qualifiers: Schizoaffective disorder type: unspecified Qualified Code(s): F25.9 - Schizoaffective disorder, unspecified Status: Acute Code(s): F25.9 - Schizoaffective disorder, unspecified (2) Cocaine use disorder: Status: Acute Code(s): F14.10 - Cocaine abuse, uncomplicated Assessment and Plan: IMPRESSION: Patient is a 40-year-old female, recently discharged from [facility] about a month ago, with history of schizoaffective disorder who presents for depression, psychotic symptoms and SI, in face of relapse with cocaine subsequent decreased adherence with medications. Patient has flat affect and talks in a monotone voice; she reports feeling depressed and bothered by auditory hallucinations. However she says that her medications of Depakote and Risperdal, when taking consistently resolved the symptoms and she thoughts wants to continue. Patient reports wanting to go to a [facility]. Suicidal ideation has resolved. Will admit for safety and stabilization PLAN: -will check depakote level Patient on CV Q 15 minutes checks Continue home medications of Depakote (liver enzymes WNL; patient educated on terrotogen to which she says she is not sexually active). Continue home medication of Risperdal (refuses MEAD) No change to the above plan Greater than 50% of the session was spent on counseling and/or coordination of care Reason for contiued inpatient stay Substantial Risk for: rapid decompensation
[2021-06-12 18:00] VITALS: BP 112/59; PULSE 61; TEMP 36.9
[2021-06-12] MEDS: LORazepam 1 MG TABLET PO (18:37)
[2021-06-12] MEDS: traZODone HCL 50 MG TABLET PO (20:28)
[2021-06-13 07:20] LABS: MANUAL DIFF FLAG NO
[2021-06-13 07:25] LABS: Basophils Percent Auto 0.5 % (0-2); Eosinophils Absolute Auto 0.3 X10*3/uL (0.0-0.4); Eosinophils Percent Auto 4.9 % (0-4); Hematocrit 38.3 % (37-47); Hemoglobin 12.1 g/dl (12.0-16.0); Imm Gran Abs Auto 0.01 X10*3/uL (0.00-0.03); Imm Gran Pct Auto 0.2 % (0.0-0.4); Lymphocytes Absolute Auto 2.2 X10*3/uL (1.2-4.9); Lymphocytes Percent Auto 38.4 % (20-40); Mean Corpuscular HGB Conc 31.6 g/dl (31.0-35.0); Mean Corpuscular Hemoglobin 26.9 pg (27.0-33.0); Mean Corpuscular Volume 85.3 fL (80-98); Mean Platelet Volume 9.5 fL (9.4-12.3); Monocytes Absolute Auto 0.5 X10*3/uL (0.1-1.2); Neutrophils Absolute Auto 2.7 X10*3/uL (2.0-8.3); Platelet Count 376 X10*3/uL (160-400); Red Blood Count 4.49 X10*6/uL (4.20-5.50); White Blood Count 5.8 X10*3/uL (4.8-10.8)
[2021-06-13 07:37] LABS: Ammonia 43 umol/L (13-55)
[2021-06-13 07:51] LABS: Alanine Aminotransferase 6 U/L (0-31); Albumin Level 3.7 g/dL (3.5-5.0); Alkaline Phosphatase 41 U/L (39-117); Aspartate Amino Transferase 12 U/L (5-31); Bilirubin Direct < 0.2 mg/dL (0.0-0.5); Bilirubin Total 0.2 mg/dL (0.0-1.0); Total Protein 6.3 g/dL (6.5-8.0)
[2021-06-13 07:55] LABS: Valproate 33.7 mcg/mL (50.0-100.0)
[2021-06-13] MEDS: Divalproex Sodium ER 500 MG TAB.ER.24H PO (09:17)
[2021-06-13] MEDS: risperiDONE 3 MG TABLET PO ×2 (09:17→20:29)
[2021-06-13 10:33] VITALS: BP 110/64; PULSE 87; RESP 16; TEMP 36.2; O2SAT 99
--- NOTE | 2021-06-13 16:21 | HO.PSYCHPN ---
Subjective Subjective Date of Service: 06/13/21 Reason For Visit: Psychosis Interim History: pt reports good mood, no SI, no AVH; she feels she's doing well and is optimistic about staying stable. Pt's plan is to go to her sisters. Mental Status Exam Mental Status Exam Narrative: Pt is alert and oriented; behavior is cooperative, calm; patient is not in distress; well groomed, with good hygiene; mood is described as good and affect congruent, bright; eye contact appropriate; Speech is normal rate, volume and prosody; not pressured; no psychomotor agitation/retardation present; thought process is goal directed and concrete. Thought content is on getting discharged but otherwise overall pertinent to relevant topics and without any delusional content, paranoid ideations or grandiosity; denies any SI/HI.? Patient reports auditory hallucinations have resolved; Patients insight and judgment appear intact Diagnostics Vital Signs (24Hr): Vital Signs - 24 hr 06/12/21 18:00 06/13/21 10:33 Temperature 98.5 F 97.2 F Pulse Rate 61 87 Respiratory Rate 16 Blood Pressure 112/59 L 110/64 Pulse Oximetry 99 Body Mass Index 22.4 Labs Results: 06/13/21 07:07 06/06/21 18:41 Labs: Laboratory Results - last 48 hr 06/13/21 06/13/21 06/13/21 07:07 07:07 07:07 WBC 5.8 RBC 4.49 Hgb 12.1 Hct 38.3 MCV 85.3 MCH 26.9 L MCHC 31.6 RDW 15.0 Plt Count 376 MPV 9.5 Immature Gran % (Auto) 0.2 Neut % (Auto) 47.0 Lymph % (Auto) 38.4 [place] % (Auto) 9.0 Eos % (Auto) 4.9 H Baso % (Auto) 0.5 Lymph # (Auto) 2.2 [place] # (Auto) 0.5 Eos # (Auto) 0.3 Baso # (Auto) 0.0 Abs Immat Gran (auto) 0.01 Absolute Neuts (auto) 2.7 Absolute Nucleated RBC 0.000 Nucleated RBC % (auto) 0.0 Total Bilirubin 0.2 Direct Bilirubin < 0.2 AST 12 D ALT 6 Alkaline Phosphatase 41 Ammonia 43 Total Protein 6.3 L Albumin 3.7 Valproic Acid 33.7 L Medications Medications Current Medications Generic Name Dose Route Start Last Admin Trade Name Freq PRN Reason Stop Dose Admin Acetaminophen 650 mg 06/08/21 16:58 Acetaminophen 325 Mg Tablet PO Q6H PRN Headache/Pain Mild Scale (1-3) Al Hydroxide/Mg Hydroxide 30 ml 06/08/21 16:58 Magnesium Hydrox/Alum Hydrox 30 Ml Oral.Susp PO Q6H PRN Heartburn/Nausea Divalproex Sodium 500 mg 06/07/21 09:00 06/13/21 09:17 Divalproex Sodium Er 500 Mg Tab.Er.24h PO 500 mg DAILY YUDITH Administration Hydroxyzine HCl 25 mg 06/08/21 16:58 06/10/21 19:16 Hydroxyzine Hcl 25 Mg Tablet PO 25 mg BEDTIME PRN Administration Anxiety Lorazepam 1 mg 06/11/21 14:24 06/12/21 18:37 Lorazepam 1 Mg Tablet PO 1 mg Q4H PRN Administration anxiety/restlessness Magnesium Hydroxide 30 ml 06/08/21 16:58 Milk Of Magnesia 30 Ml Oral.Susp PO DAILY PRN Constipation Pharmacy Consult 1 each 06/06/21 17:10 Consult Rx Perform Med Rec MISCELLANE ONCE PRN Consult order Risperidone 3 mg 06/06/21 21:00 06/13/21 09:17 Risperidone 3 Mg Tablet PO 3 mg BID YUDITH Administration Trazodone HCl 50 mg 06/08/21 16:58 06/12/21 20:28 Trazodone Hcl 50 Mg Tablet PO 50 mg BEDTIME PRN Administration Insomnia Allergies Allergies Allergy/AdvReac Type Severity Reaction Status Date / Time haloperidol [From HALDOL] Allergy Mild DROWSY Verified 11/06/20 20:26 From HALDOL Allergy Mild DROWSY Uncoded 07/28/20 17:43 From SEROQUEL Allergy Mild AUDITORY Uncoded 07/28/20 17:43 HALLUCINATIONS Assessment & Plan Assessment & Plan (1) Schizoaffective disorder: Qualifiers: Schizoaffective disorder type: unspecified Qualified Code(s): F25.9 - Schizoaffective disorder, unspecified Status: Chronic Code(s): F25.9 - Schizoaffective disorder, unspecified (2) Cocaine use disorder: Status: Resolved Code(s): F14.10 - Cocaine abuse, uncomplicated Assessment and Plan: IMPRESSION: Patient is a 40-year-old female, recently discharged from [facility] about a month ago, with history of schizoaffective disorder who presents for depression, psychotic symptoms and SI, in face of relapse with cocaine subsequent decreased adherence with medications. Patient has flat affect and talks in a monotone voice; she reports feeling depressed and bothered by auditory hallucinations. However she says that her medications of Depakote and Risperdal, when taking consistently resolved the symptoms and she thoughts wants to continue. Patient reports wanting to go to a [facility]. Suicidal ideation has resolved. pt mood is good, no SI. Although she appears to intermittently be internally preoccupied, she denies AVH. Pt future oriented and at her baseline. She is not in immmient risk of harm to self or others PLAN: -will check depakote level Patient on CV Q 15 minutes checks Continue home medications of Depakote (liver enzymes WNL; patient educated on terrotogen to which she says she is not sexually active). Continue home medication of Risperdal (refuses MEAD) No change to the above plan Greater than 50% of the session was spent on counseling and/or coordination of care Reason for contiued inpatient stay Substantial Risk for: stable for discharge
--- NOTE | 2021-06-13 16:42 | HO.PSYCHPN ---
Subjective Subjective Date of Service: 06/13/21 Reason For Visit: Psychosis Subjective Notes: 3 Day Guardianship: No Interim History: Patient seen and discussed with team. Patient evaluated this morning and upon interview she reports her mood is good. Says her medications are helping, does not want changes. Says her sleep and energy are good. Denies stressors or concerns. In the In the milieu, patient is safe and appropriate in behavior. Denies SI/SIB/HI upon inquiry. Denies irritability or assaultive ideation. Says they feel safe. Medication Compliance: Yes Side effects from medications: No Attending Groups: Yes Review of Systems Acute medical concerns: No Medical Review of Systems: unchanged Review of Systems: CVS: No c/o chest pain, palpitations, no SOB MOBILE APPLICATION TESTER: No c/o dizziness, headache GI: No c/o Nausea, Vomiting, diarrhea, constipation or heartburn Mental Status Exam Mental Status Exam Narrative: Well groomed, good hygiene, normal body habitus. Good eye contact, attentive. No Tics or Tremors. No abnormal involuntary movements. Calm, cooperative, engaged. Non-pressured speech, spontaneous with regular rate and rhythm, normal volume and prosody. No prolonged speech latency or dysarthria. Mood is ?good,? affect is euthymic. Denies SI/SIB/HI upon inquiry. Denies A/VH or delusional thought content. Thoughts are coherent, organized. No known cognitive or memory impairment. Insight/ Judgment fair and adequate. Diagnostics Vital Signs (24Hr): Vital Signs - 24 hr 06/12/21 18:00 06/13/21 10:33 Temperature 98.5 F 97.2 F Pulse Rate 61 87 Respiratory Rate 16 Blood Pressure 112/59 L 110/64 Pulse Oximetry 99 Body Mass Index 22.4 Labs Results: 06/13/21 07:07 06/06/21 18:41 Labs: Laboratory Results - last 48 hr 06/13/21 06/13/21 06/13/21 07:07 07:07 07:07 WBC 5.8 RBC 4.49 Hgb 12.1 Hct 38.3 MCV 85.3 MCH 26.9 L MCHC 31.6 RDW 15.0 Plt Count 376 MPV 9.5 Immature Gran % (Auto) 0.2 Neut % (Auto) 47.0 Lymph % (Auto) 38.4 [place] % (Auto) 9.0 Eos % (Auto) 4.9 H Baso % (Auto) 0.5 Lymph # (Auto) 2.2 [place] # (Auto) 0.5 Eos # (Auto) 0.3 Baso # (Auto) 0.0 Abs Immat Gran (auto) 0.01 Absolute Neuts (auto) 2.7 Absolute Nucleated RBC 0.000 Nucleated RBC % (auto) 0.0 Total Bilirubin 0.2 Direct Bilirubin < 0.2 AST 12 D ALT 6 Alkaline Phosphatase 41 Ammonia 43 Total Protein 6.3 L Albumin 3.7 Valproic Acid 33.7 L Medications Medications Current Medications Generic Name Dose Route Start Last Admin Trade Name Freq PRN Reason Stop Dose Admin Acetaminophen 650 mg 06/08/21 16:58 Acetaminophen 325 Mg Tablet PO Q6H PRN Headache/Pain Mild Scale (1-3) Al Hydroxide/Mg Hydroxide 30 ml 06/08/21 16:58 Magnesium Hydrox/Alum Hydrox 30 Ml Oral.Susp PO Q6H PRN Heartburn/Nausea Divalproex Sodium 500 mg 06/07/21 09:00 06/13/21 09:17 Divalproex Sodium Er 500 Mg Tab.Er.24h PO 500 mg DAILY YUDITH Administration Hydroxyzine HCl 25 mg 06/08/21 16:58 06/10/21 19:16 Hydroxyzine Hcl 25 Mg Tablet PO 25 mg BEDTIME PRN Administration Anxiety Lorazepam 1 mg 06/11/21 14:24 06/12/21 18:37 Lorazepam 1 Mg Tablet PO 1 mg Q4H PRN Administration anxiety/restlessness Magnesium Hydroxide 30 ml 06/08/21 16:58 Milk Of Magnesia 30 Ml Oral.Susp PO DAILY PRN Constipation Pharmacy Consult 1 each 06/06/21 17:10 Consult Rx Perform Med Rec MISCELLANE ONCE PRN Consult order Risperidone 3 mg 06/06/21 21:00 06/13/21 09:17 Risperidone 3 Mg Tablet PO 3 mg BID YUDITH Administration Trazodone HCl 50 mg 06/08/21 16:58 06/12/21 20:28 Trazodone Hcl 50 Mg Tablet PO 50 mg BEDTIME PRN Administration Insomnia Allergies Allergies Allergy/AdvReac Type Severity Reaction Status Date / Time haloperidol [From HALDOL] Allergy Mild DROWSY Verified 11/06/20 20:26 From HALDOL Allergy Mild DROWSY Uncoded 07/28/20 17:43 From SEROQUEL Allergy Mild AUDITORY Uncoded 07/28/20 17:43 HALLUCINATIONS Assessment & Plan Assessment & Plan (1) Schizoaffective disorder: Qualifiers: Schizoaffective disorder type: unspecified Qualified Code(s): F25.9 - Schizoaffective disorder, unspecified Status: Acute Code(s): F25.9 - Schizoaffective disorder, unspecified (2) Cocaine use disorder: Status: Acute Code(s): F14.10 - Cocaine abuse, uncomplicated Assessment and Plan: IMPRESSION: Patient is a 40-year-old female, recently discharged from [facility] about a month ago, with history of schizoaffective disorder who presents for depression, psychotic symptoms and SI, in face of relapse with cocaine subsequent decreased adherence with medications. Patient has flat affect and talks in a monotone voice; she reports feeling depressed and bothered by auditory hallucinations. However she says that her medications of Depakote and Risperdal, when taking consistently resolved the symptoms and she thoughts wants to continue. Patient reports wanting to go to a CSS. Suicidal ideation has resolved. Will admit for safety and stabilization PLAN: -Reviewed VPA level, 33.7 on 06/13/2021 Patient on CV Q 15 minutes checks Continue home medications of Depakote (liver enzymes WNL; patient educated on terrotogen to which she says she is not sexually active). Continue home medication of Risperdal (refuses MEAD) No change to the above plan Greater than 50% of the session was spent on counseling and/or coordination of care Reason for contiued inpatient stay Substantial Risk for: med/psych decompensation
[2021-06-13 20:10] VITALS: BP 117/58; PULSE 59; TEMP 36.6
[2021-06-13] MEDS: traZODone HCL 50 MG TABLET PO (20:40)
[2021-06-14 07:54] VITALS: BP 110/57; PULSE 75; RESP 16; TEMP 36.1; O2SAT 98
[2021-06-14] MEDS: Divalproex Sodium ER 500 MG TAB.ER.24H PO (08:13)
[2021-06-14] MEDS: risperiDONE 3 MG TABLET PO (08:13)
--- NOTE | 2021-06-14 09:28 | PM.PSYDC ---
DS: Providers Provider Date of Service: 06/14/21 Date of admission: 06/08/21 16:46 Date of discharge: 06/14/21 Primary care physician: Unknown Physician Attending physician on admission: Charlie Johnson Attending physician on discharge: Charlie Johnson DS: Diagnosis Discharge Diagnosis (1) Schizoaffective disorder: Status: Chronic (2) Cocaine use disorder: Status: Resolved DS: Medications Discharge Medications Home Medications: Previous Rx's Medication Instructions Recorded divalproex 500 mg tablet,extended 500 mg PO DAILY 30 Days #30 tab 06/14/21 release 24 hr risperidone 3 mg tablet 3 mg PO BID 30 Days #60 tab 06/14/21 trazodone 50 mg tablet 50 mg PO BEDTIME PRN 30 Days #30 06/14/21 tab also: narcan nicotine lozenge Mental Status Exam Mental Status Exam Narrative: Pt is alert and oriented; behavior is cooperative, calm; patient is not in distress; well groomed, with good hygiene; mood is described as good and affect congruent, bright; eye contact appropriate; Speech is normal rate, volume and prosody; not pressured; no psychomotor agitation/retardation present; thought process is goal directed and concrete. Thought content is on getting discharged but otherwise overall pertinent to relevant topics and without any delusional content, paranoid ideations or grandiosity; denies any SI/HI.? Patient reports auditory hallucinations have resolved; Patients insight and judgment appear intact Data Data Completed and Pending Completed studies during hospitalization [Text1]: 06/13/21 06/13/21 06/13/21 07:07 07:07 07:07 WBC 5.8 RBC 4.49 Hgb 12.1 Hct 38.3 MCV 85.3 MCH 26.9 L MCHC 31.6 RDW 15.0 Plt Count 376 MPV 9.5 Immature Gran % (Auto) 0.2 Neut % (Auto) 47.0 Lymph % (Auto) 38.4 [place] % (Auto) 9.0 Eos % (Auto) 4.9 H Baso % (Auto) 0.5 Lymph # (Auto) 2.2 [place] # (Auto) 0.5 Eos # (Auto) 0.3 Baso # (Auto) 0.0 Abs Immat Gran (auto) 0.01 Absolute Neuts (auto) 2.7 Absolute Nucleated RBC 0.000 Nucleated RBC % (auto) 0.0 Total Bilirubin 0.2 Direct Bilirubin < 0.2 AST 12 D ALT 6 Alkaline Phosphatase 41 Ammonia 43 Total Protein 6.3 L Albumin 3.7 Valproic Acid 33.7 L DS: Summary Hospital Course Hospital Course: Patient is a 40-year-old female, recently discharged from [facility] about a month ago, with history of schizoaffective disorder who presents for depression, psychotic symptoms and SI, in face of relapse with cocaine subsequent decreased adherence with medications.? Patient signed a CV. On admission patient was depressed and with flat affect but denied SI saying it had resolved. She endorsed auditory hallucinations that said mean things and wanted to get back on her home medications of Depakote and Risperdal. Patient was restarted on these medications and soon stabilized, reporting depression abated and auditory hallucinations decreased. After few more days in the unit patient reported being in a good mood, with bright affect, friendly and calm and optimistic about resisting cocaine. She did get into 1 altercation with another patient/staff, saying she felt triggered, but this resolved on its own as she was ultimately redirectable and otherwise patient was able to demonstrate good behavior and impulse control. She continued to deny any SI or HI throughout admission. She reported that auditory hallucinations fully resolved, however she was witnessed by staff to be internally preoccupied. Patient asked for discharge, feeling she was ready to go, stable and in a good mood. Patient plan to go to her sister's house where she has stayed before. Supervisor Machine Setter discussed long-acting injectable for Risperdal, but patient declined. She was not in imminent risk of harm to self or others and her request for discharge honored. Time spent discussing smoking cessation with patient: 3 to 10 minutes Status at Discharge Functional status at discharge: independent ambulation Overall status at discharge: patient is back to baseline Time Spent with Patient Time attestation: Total time spent providing and/or coordinating discharge services: Discharge Plan Discharge Patient Disposition: Home, Self-Care Discharge Diagnosis: Schizoaffective disorder, depressed type in full remission Referrals: [facility] [Other] - 06/16/21 10:30 am (The Intake appointment will be over the phone. Please contact the program at the above number to reschedule your intake if you are unable to attend) [facility] [Other] - 1 Week ([email or web address] [Other] - 1 Week ([facility] is open from 9-5PM Saturday-Saturday with support groups and they can set you up with a resource recovery specialist) [facility] [Other] - 06/14/21 2:00 pm (Please contact your [facility] providers upon discharge for assistance with your aftercare plan) [facility] (medication management) [Other] - 1 Week (A referral has already been made for a follow-up medication management appointment. Please contact the above number to obtain the appointment date/time) Physician,Unknown [Primary Care Provider] - 1 Week (Pt to call for new patient appt at [facility]. 06/14/21) Discharge Medications: New trazodone 50 mg Tablet 50 mg PO BEDTIME PRN (Reason: Insomnia) 30 Days Qty: 30 RF: 0 nicotine (polacrilex) 4 mg lozenge 4 mg buccal Q2-4H PRN (Reason: nicotine cravings) 30 Days Qty: 72 RF: 0 Continued risperidone 3 mg Tablet 3 mg PO BID 30 Days Qty: 60 RF: 0 Changed divalproex 500 mg tablet extended release 24 hr 500 mg PO DAILY 30 Days Qty: 30 RF: 0 Discharge Orders: Discharge Order (Routine); Ordered 06/14/21 Ordered By: Charlie Johnson Diet: advance to usual diet Activity on Discharge: As tolerated Stand Alone Forms: Patient Portal Discharge page, Community Support Care Plan Goals: Maintain mood and safe behaviors Take medications as prescribed Continue to pursue sobriety Practice coping skills Continue with outpatient providers and reach out to them as needed Health Concerns: Mood instability and behaviors Depression Plan of Treatment: Follow up with your outpatient providers regarding above concerns Take medications as prescribed Assessment: Risk assessment at time of discharge:? Patient was interviewed prior to discharge and found to be fully oriented and without any SI or HI. Patient has insight and demonstrates good judgment in terms of wanting to pursue treatment. Patient is not in imminent risk of harm to self or others and has a safety plan that includes presenting to the closest ER or calling 911 if feeling unsafe.? Patient has been observed closely by nursing and unit staff throughout admission; she did have one short bout of dysregulated behavior however this soon fully resolved and otherwise patient has not engaged in any behaviors that suggest dangerousness to self or others and has demonstrated appropriate behaviors and impulse control. Discharge Date/Time: 06/14/21 10:30
[2021-06-14] MEDS: Naloxone HCl Nasal TAKE HOME 4 MG SPRAY NOSTRILALT (10:23)
== END 2021-06-14 10:30 | disposition home or self-care (01) | DRG 750 ==
LOC: HO.ED 06-08 17:00 → HO.PM5 06-08 17:13
PROVIDERS: Physician Assistant; Admitting Provider Psychiatry & Neurology Psychiatry; Emergency Provider Emergency Medicine; Visit Provider Psychiatry & Neurology Psychiatry
DX: F25.9 Schizoaffective disorder, unspecified (principal); I95.9 Hypotension, unspecified; R45.851 Suicidal ideations; F14.10 Cocaine abuse, uncomplicated; F17.210 Nicotine dependence, cigarettes, uncomplicated; Z20.822 Contact with and (suspected) exposure to COVID-19; Z91.14 Patient's other noncompliance with medication regimen; Z71.6 Tobacco abuse counseling; Z79.899 Other long term (current) drug therapy
CPT/HCPCS: 36415; 80048; 80076; 80164; 80307; 81003; 81025; 82077; 82140; 85025; 87635; 93005; 99285

== ENCOUNTER 2021-07-31 07:37 | Emergency (ER) | payer OTHER, SELFPAY ==
[2021-07-31 08:09] VITALS: BP 95/62; PULSE 62; RESP 16; TEMP 36.5; O2SAT 99; BMI 28.0
[2021-07-31 11:19] LABS: UPreg QC Valid YES; Urine Pregnancy NEGATIVE (NEGATIVE)
[2021-07-31 11:25] LABS: MANUAL DIFF FLAG NO
[2021-07-31 11:27] LABS: Basophils Percent Auto 0.9 % (0-2); Eosinophils Absolute Auto 0.2 X10*3/uL (0.0-0.4); Eosinophils Percent Auto 5.4 % (0-4); Hematocrit 39.4 % (37-47); Hemoglobin 12.5 g/dl (12.0-16.0); Lymphocytes Absolute Auto 1.9 X10*3/uL (1.2-4.9); Lymphocytes Percent Auto 42.8 % (20-40); Mean Corpuscular HGB Conc 31.7 g/dl (31.0-35.0); Mean Corpuscular Hemoglobin 26.9 pg (27.0-33.0); Mean Corpuscular Volume 84.9 fL (80-98); Mean Platelet Volume 10.1 fL (9.4-12.3); Monocytes Absolute Auto 0.3 X10*3/uL (0.1-1.2); Monocytes Percent Auto 7.7 % (2-11); Neutrophils Absolute Auto 1.9 X10*3/uL (2.0-8.3); Neutrophils Percent Auto 43.2 % (45-73); Platelet Count 400 X10*3/uL (160-400); Red Blood Count 4.64 X10*6/uL (4.20-5.50); Red Cell Distribution Width 15.6 % (11.0-16.0); White Blood Count 4.4 X10*3/uL (4.8-10.8)
[2021-07-31 11:28] LABS: Amphetamine Screen Urine Not Detected (Not Detect); Barbiturates, Urine Not Detected (Not Detect); Benzodiazepines Screen Urine Not Detected (Not Detect); Cannabinoid Screen Urine POSITIVE (Not Detect); Cocaine Screen Urine POSITIVE (Not Detect); Fentanyl, urine Not Detected (Not Detect); Opiate Screen Urine Not Detected (Not Detect); Phencyclidine Screen Urine Not Detected (Not Detect)
[2021-07-31 11:33] LABS: COVID-19 Test Negative (Negative); IDNOW Serial# 9DD0AD1C
[2021-07-31 11:39] LABS: Ethanol < 10 mg/dL
--- NOTE | 2021-07-31 11:46 | PC.NURSE ---
periodically wakes and lets wants be known by brief phrases, orange juice and cheese stick
--- NOTE | 2021-07-31 16:38 | ED_ITS ---
HPI - Psych General Chief Complaint: Psychiatric Symptoms Stated Complaint: SI Time Seen by Provider: 07/31/21 10:32 History of Present Illness HPI Narrative: Patient 40 years old presented today with having suicidal thoughts she denies any cocaine heroin. Did use marijuana. Patient had plans of stabbing herself. She does not have a gun in the house. Related Data Previous Rx's Medication Instructions Recorded divalproex 500 mg tablet,extended 500 mg PO DAILY 30 Days #30 tab 06/14/21 release 24 hr nicotine (polacrilex) 4 mg buccal 4 mg BUCCAL Q2-4H PRN 30 Days #72 06/14/21 lozenge ea risperidone 3 mg tablet 3 mg PO BID 30 Days #60 tab 06/14/21 trazodone 50 mg tablet 50 mg PO BEDTIME PRN 30 Days #30 06/14/21 tab Allergies Allergy/AdvReac Type Severity Reaction Status Date / Time haloperidol [From HALDOL] Allergy Mild DROWSY Verified 11/06/20 20:26 From HALDOL Allergy Mild DROWSY Uncoded 07/28/20 17:43 From SEROQUEL Allergy Mild AUDITORY Uncoded 07/28/20 17:43 HALLUCINATIONS Review of Systems Review of Systems: No fever no chills no chest pain Yes all other systems are reviewed and are negative PMFSH Past Medical History Attestation statement: The following information was validated with the patient. Medical History Cannabis use disorder, moderate, dependence Cocaine use disorder Schizoaffective disorder Social History Social History Household Members: Other Household Members Other:: lives with sister Housing: Apartment Do you presently have visiting nurse or other home services: No Alcohol intake: current Patient Tobacco Use Status: Current everyday Tobacco user Tobacco use type: Cigarette Cigarette Packs Per Day: 1 Cigarettes Per Day: 20.0 Years Smoked: 10 Second Hand Smoke Exposure: No Substance Use Type: Crack/Cocaine and Marijuana Advance Directives: No Advance Directives Information Provided: No Patient : No service: No Sexual orientation: Did not discuss Physical Exam Vital Signs: Vital Signs: Last Vital Signs Temp 97.7 F 07/31/21 08:09 Pulse 62 07/31/21 08:09 Resp 16 07/31/21 08:09 BP 95/62 07/31/21 08:09 Pulse Ox 99 07/31/21 08:09 Body Mass Index 28.0 Appearance: Alert. Oriented X3. No acute distress. Eyes: Pupils equal, round and reactive to light. ENT: Pharynx normal. Neck: Normal inspection. Neck supple. No lymph nodes noted. No crepitus CVS: Normal heart rate and rhythm. Pulses normal. Normal S1 and S2 Respiratory: No respiratory distress. Breath sounds normal. No Wheezing. No rales Abdomen: Soft and nontender. No rigidity. No distention. good BS x4 Skin: Skin warm and dry. Normal skin color. Normal skin turgor. Extremities: No lower extremity edema. Neurovascular intact to all extremities. No Lacerations. No Rash Neuro: Oriented X 3. No motor deficit. No sensory deficit. Moving all extermities. No slurred speech MDM - Psych MDM Narrative Medical decision making narrative: Well-appearing medically cleared awaiting cri sis evaluation Lab Data Result diagrams: 07/31/21 11:19 Labs: Lab Results 07/31/21 07/31/21 07/31/21 Range/Units 11:02 11:02 11:02 WBC (4.8-10.8) X10*3/uL RBC (4.20-5.50) X10*6/uL Hgb (12.0-16.0) g/dl Hct (37-47) % MCV (80-98) fL MCH (27.0-33.0) pg MCHC (31.0-35.0) g/dl RDW (11.0-16.0) % Plt Count (160-400) X10*3/uL MPV (9.4-12.3) fL Immature Gran % (Auto) (0.0-0.4) % Neut % (Auto) (45-73) % Lymph % (Auto) (20-40) % [place] % (Auto) (2-11) % Eos % (Auto) (0-4) % Baso % (Auto) (0-2) % Lymph # (Auto) (1.2-4.9) X10*3/uL [place] # (Auto) (0.1-1.2) X10*3/uL Eos # (Auto) (0.0-0.4) X10*3/uL Baso # (Auto) (0.0-0.2) X10*3/uL Abs Immat Gran (auto) (0.00-0.03) X10*3/uL Absolute Neuts (auto) (2.0-8.3) X10*3/uL Absolute Nucleated RBC (0.0-0.012) X10*3/uL Nucleated RBC % (auto) (0.0-0.2) /100WBC Urine Test NEGATIVE (NEGATIVE) Urine Opiates Screen Not Detected (Not Detect) Urine Fentanyl Screen Not Detected (Not Detect) Ur Barbiturates Screen Not Detected (Not Detect) Ur Phencyclidine Scrn Not Detected (Not Detect) Ur Amphetamines Screen Not Detected (Not Detect) U Benzodiazepines Scrn Not Detected (Not Detect) Urine Cocaine Screen POSITIVE H (Not Detect) U Marijuana (THC) Screen POSITIVE H (Not Detect) Ethyl Alcohol mg/dL COVID-19 ([facility]NAVI) Negative (Negative) COVID-19 Clin Com See Note 07/31/21 07/31/21 Range/Units 11:19 11:19 WBC 4.4 L (4.8-10.8) X10*3/uL RBC 4.64 (4.20-5.50) X10*6/uL Hgb 12.5 (12.0-16.0) g/dl Hct 39.4 (37-47) % MCV 84.9 (80-98) fL MCH 26.9 L (27.0-33.0) pg MCHC 31.7 (31.0-35.0) g/dl RDW 15.6 (11.0-16.0) % Plt Count 400 (160-400) X10*3/uL MPV 10.1 (9.4-12.3) fL Immature Gran % (Auto) 0.0 (0.0-0.4) % Neut % (Auto) 43.2 L (45-73) % Lymph % (Auto) 42.8 H (20-40) % [place] % (Auto) 7.7 (2-11) % Eos % (Auto) 5.4 H (0-4) % Baso % (Auto) 0.9 (0-2) % Lymph # (Auto) 1.9 (1.2-4.9) X10*3/uL [place] # (Auto) 0.3 (0.1-1.2) X10*3/uL Eos # (Auto) 0.2 (0.0-0.4) X10*3/uL Baso # (Auto) 0.0 (0.0-0.2) X10*3/uL Abs Immat Gran (auto) 0.00 (0.00-0.03) X10*3/uL Absolute Neuts (auto) 1.9 L (2.0-8.3) X10*3/uL Absolute Nucleated RBC 0.000 (0.0-0.012) X10*3/uL Nucleated RBC % (auto) 0.0 (0.0-0.2) /100WBC Urine Test (NEGATIVE) Urine Opiates Screen (Not Detect) Urine Fentanyl Screen (Not Detect) Ur Barbiturates Screen (Not Detect) Ur Phencyclidine Scrn (Not Detect) Ur Amphetamines Screen (Not Detect) U Benzodiazepines Scrn (Not Detect) Urine Cocaine Screen (Not Detect) U Marijuana (THC) Screen (Not Detect) Ethyl Alcohol < 10 mg/dL COVID-19 ([facility]) (Negative) COVID-19 Clin Com Discharge Plan Discharge Clinical Impression: Schizoaffective disorder Prescriptions: No Action trazodone 50 mg Tablet 50 mg PO BEDTIME PRN (Reason: Insomnia) 30 Days Qty: 30 RF: 0 risperidone 3 mg Tablet 3 mg PO BID 30 Days Qty: 60 RF: 0 divalproex 500 mg tablet extended release 24 hr 500 mg PO DAILY 30 Days Qty: 30 RF: 0 nicotine (polacrilex) 4 mg lozenge 4 mg buccal Q2-4H PRN (Reason: nicotine cravings) 30 Days Qty: 72 RF: 0
[2021-07-31] MEDS: Nicotine Polacrilex Lozenge 4 MG LOZENGE BUCCAL (17:59)
[2021-07-31] MEDS: Divalproex Sodium ER 500 MG TAB.ER.24H PO (17:59)
--- NOTE | 2021-07-31 18:09 | PC.NURSE ---
client randomly makes loud outbursts and states it tourettes- just now collected patients tray and she yells/says loudly get the f away from me t/w replies i dont think you mean that, just moving your tray
[2021-07-31] MEDS: risperiDONE 3 MG TABLET PO (19:42)
[2021-07-31 19:52] VITALS: BP 105/50; PULSE 60; RESP 18; TEMP 36.8; O2SAT 99
[2021-07-31] MEDS: LORazepam 1 MG TABLET 2 MG PO (20:00)
[2021-08-01 04:14] VITALS: BP 100/57; PULSE 72; TEMP 37.1; O2SAT 97
--- NOTE | 2021-08-01 06:07 | PC.NURSE ---
Patient slept through the night, patient was up x 2 for bathroom use and back, VSS, medication compliant, behavior mostly appropriate at time can be unpredictable, assessed by [facility] dispsition is Respite bed in the morning, [facility] will f/u with patient and arrange ride for the patient, patient and provider is in agreemnet with plan, will continue to monitor.
--- NOTE | 2021-08-01 07:12 | PC.NURSE ---
patient appears to remain at rest at present, respirations are even and unlabored, patient appears in no distress
--- NOTE | 2021-08-01 10:02 | MHC.CARE ---
Call to N to inquire about patient's disposition. Trupti stated that patient is a, Respite follow-up, meaning that a clinician will come see patient again today and then refer to respite.
[2021-08-01] MEDS: Divalproex Sodium ER 500 MG TAB.ER.24H PO (13:03)
[2021-08-01] MEDS: Nicotine Polacrilex Lozenge 4 MG LOZENGE BUCCAL (13:03)
[2021-08-01] MEDS: risperiDONE 3 MG TABLET PO (13:03)
--- NOTE | 2021-08-01 14:04 | PC.NURSE ---
spoke to tiffany from [facility] she said shed send an email to get more details regarding disposition and will call us back
--- NOTE | 2021-08-01 21:05 | MHC.CARE ---
N was unable to see patient today, so CARE Team took over the case to complete the MSU. Pt denied SI/HI. Pt stated that she felt safe to go home and that she would call N for respite in the morning. CARE Team attempted to contact sister that pt lives with, but unable to reach by phone. CARE Team sent pt home in a LYFT with the phone number for referral to respite.
== END 2021-08-01 20:42 | disposition home or self-care (01) ==
PROVIDERS: Emergency Provider Emergency Medicine Emergency Medical Services
DX: F20.9 Schizophrenia, unspecified (principal); R45.851 Suicidal ideations; F14.90 Cocaine use, unspecified, uncomplicated; F12.90 Cannabis use, unspecified, uncomplicated; F17.210 Nicotine dependence, cigarettes, uncomplicated; Z20.822 Contact with and (suspected) exposure to COVID-19; Z71.6 Tobacco abuse counseling; Z79.899 Other long term (current) drug therapy
CPT/HCPCS: 36415; 80307; 81025; 82077; 85025; 87635; 99284

== ENCOUNTER 2022-07-12 10:16 | Emergency (ER) | payer OTHER, SELFPAY ==
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
[2022-07-12 10:22] VITALS: BP 160/100; PULSE 106; O2SAT 98
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
[2022-07-12 10:32] VITALS: BP 116/89; PULSE 88; RESP 18; TEMP 36.8; O2SAT 96; BMI 24.7
[2022-07-12 10:43] LABS: Basophils Absolute Auto 0.1 X10*3/uL (0.0-0.2); Basophils Percent Auto 0.8 % (0-2); Eosinophils Absolute Auto 1.3 X10*3/uL (0.0-0.4); Eosinophils Percent Auto 20.2 % (0-4); Hemoglobin 12.4 g/dl (12.0-16.0); Imm Gran Abs Auto 0.01 X10*3/uL (0.00-0.03); Imm Gran Pct Auto 0.2 % (0.0-0.4); Lymphocytes Absolute Auto 2.5 X10*3/uL (1.2-4.9); Lymphocytes Percent Auto 40.2 % (20-40); MANUAL DIFF FLAG SCAN; Mean Corpuscular HGB Conc 32.6 g/dl (31.0-35.0); Mean Corpuscular Hemoglobin 26.9 pg (27.0-33.0); Mean Corpuscular Volume 82.4 fL (80.0-98.0); Mean Platelet Volume 9.6 fL (9.4-12.3); Monocytes Absolute Auto 0.5 X10*3/uL (0.1-1.2); Monocytes Percent Auto 7.7 % (2-11); Neutrophils Absolute Auto 1.9 x10*3/uL (2.0-8.3); Neutrophils Percent Auto 30.9 % (45-73); Platelet Count 378 X10*3/uL (160-400); Red Blood Count 4.61 X10*6/uL (4.20-5.50); Red Cell Distribution Width 15.3 % (11.0-16.0); SCAN SMEAR FLAG 1; White Blood Count 6.2 X10*3/uL (4.8-10.8)
[2022-07-12 11:06] LABS: COVID-19 Test Negative (Negative); IDNOW Serial# 16C4AD1C
[2022-07-12 11:09] LABS: SLIDE REVIEW VERIFIED
[2022-07-12 11:10] LABS: Ethanol < 10 mg/dL
[2022-07-12 11:16] LABS: Alanine Aminotransferase 9 U/L (0-31); Albumin Level 4.2 g/dL (3.5-5.0); Alkaline Phosphatase 45 U/L (39-117); Anion Gap 15 (12-20); Aspartate Amino Transferase 16 U/L (5-31); Bilirubin Direct 0.3 mg/dL (0.0-0.5); Bilirubin Total 0.6 mg/dL (0.0-1.0); Blood Urea Nitrogen 12 mg/dL (9-16); Calcium 9.3 mg/dL (8.4-10.2); Carbon Dioxide 26 mmol/L (22-29); Chloride 109 mmol/L (96-108); Creatinine Clr Calc Pharmacy 62.6; Estimated Glomerular Filt Rate 57; Glucose Random 88 mg/dL (60-115); Magnesium 2.3 mg/dL (1.6-2.6); Potassium 4.3 mmol/L (3.3-5.1); Sodium 146 mmol/L (135-145); Total Protein 7.4 g/dL (6.5-8.0)
[2022-07-12] MEDS: risperiDONE 3 MG TABLET PO (11:41)
--- NOTE | 2022-07-12 11:41 | PC.NURSE ---
pt unable to answer questions kandace this time, pt yelling out due to hallucinations, pt medicated per request of provider, pt has 1:1 sitter, will continue to monitor
--- NOTE | 2022-07-12 12:15 | PC.NURSE ---
pt moved to psych pod with security
[2022-07-12 12:25] VITALS: BP 107/57; PULSE 78; RESP 18; O2SAT 98
--- NOTE | 2022-07-12 12:48 | PC.NURSE ---
Patient moved over from main ED. Patient is calm and cooperative since arriving to the POD. Patient resting quietly in her room. Reports SI and auditory hallucinations. Has not been taking her medication for ~ 2 weeks. Patient reports no pain at this time. No distress noted. Respirations regular and even. Skin PWD. Given a sandwich to hold her over to lunch. Will continue to monitor.
[2022-07-12 17:56] LABS: Appearance Urine Clear; Color Urine Yellow; Glucose Urine UA Negative (Negative); Leukocyte Esterase Urine Trace (Negative); Nitrite Urine Negative (Negative); Specific Gravity - Urine >= 1.030 (1.005-1.025); Urine Blood Negative (Negative); Urine Ketones 15 mg/dL (Negative); Urine Protein Trace mg/dL (Neg-Trace)
[2022-07-12 17:58] LABS: UPreg QC Valid YES; Urine Pregnancy NEGATIVE (NEGATIVE)
[2022-07-12 18:03] LABS: RBC Urine 0-2 /HPF (0-2)
[2022-07-12 18:04] LABS: Bacteria Urine Trace (None Seen); Hyaline Casts Urine 0-2 /LPF (0-2)
[2022-07-12 18:13] LABS: Amphetamine Screen Urine Not Detected (Not Detect); Barbiturates, Urine Not Detected (Not Detect); Benzodiazepines Screen Urine Not Detected (Not Detect); Cannabinoid Screen Urine POSITIVE (Not Detect); Cocaine Screen Urine POSITIVE (Not Detect); Fentanyl, urine Not Detected (Not Detect); Opiate Screen Urine Not Detected (Not Detect); Phencyclidine Screen Urine Not Detected (Not Detect)
[2022-07-12 19:10] VITALS: RESP 20
[2022-07-12] MEDS: LORazepam 1 MG TABLET 2 MG PO (19:26)
[2022-07-12] MEDS: risperiDONE 2 MG TABLET 4 MG PO (20:29)
[2022-07-12] MEDS: Divalproex Sodium ER 500 MG TAB.ER.24H 1000 MG PO (20:30)
[2022-07-12] MEDS: traZODone HCL 50 MG TABLET PO (20:30)
--- NOTE | 2022-07-13 06:31 | PC.NURSE ---
Patient slept through the night, no distress observed/reported, disposition per [facility] is section 12 inpatient bed search, behavior non concerning at this time, patient had one episode of outburst in the evening but calmed down with Ativan 2 mg po, medication, VSS, will continue to monitor.
[2022-07-13 06:48] VITALS: RESP 17
--- NOTE | 2022-07-13 07:33 | PC.NURSE ---
patient appears to remain asleep respirations are even and unlabored patient appears in no distress
[2022-07-13] MEDS: Nitrofurantoin Monohyd/M-Cryst 100 MG CAPSULE PO (10:40)
[2022-07-13] MEDS: Nicotine 21 MG PATCH.TD24 TRANSDERMA (10:40)
[2022-07-13] MEDS: hydrOXYzine HCL 25 MG TABLET 75 MG PO (10:40)
[2022-07-13] MEDS: risperiDONE 2 MG TABLET PO (10:41)
[2022-07-13] MEDS: LORazepam 1 MG TABLET PO (14:17)
== END 2022-07-13 15:49 ==
PROVIDERS: Internal Medicine; Physician Assistant; Emergency Provider Student in an Organized Health Care Education/Training Program; PCP Nurse Practitioner Family
DX: F14.959 Cocaine use, unspecified with cocaine-induced psychotic disorder, unspecified (principal); F25.0 Schizoaffective disorder, bipolar type; N39.0 Urinary tract infection, site not specified; Z20.822 Contact with and (suspected) exposure to COVID-19; R51.9 Headache, unspecified; R45.1 Restlessness and agitation; R45.851 Suicidal ideations; M79.10 Myalgia, unspecified site; F32.A Depression, unspecified; Z79.899 Other long term (current) drug therapy
CPT/HCPCS: 36415; 70450; 80048; 80076; 80164; 80307; 81001; 81025; 82077; 82550; 83735; 85025; 87635; 99285

== ENCOUNTER 2022-09-23 03:28 | Inpatient (IN) | payer OTHER, SELFPAY ==
[2022-09-23] VITALS (14 sets, daily range): BP systolic 94–139; BP diastolic 50–92; PULSE 58–107; RESP 14–22; TEMP 36.5–37.1; O2SAT 97–99; BMI 24.7
[2022-09-23] MEDS: OLANZapine 10 MG VIAL 5 MG IM (03:51)
[2022-09-23] MEDS: diphenhydrAMINE HCL 50 MG/ML VIAL IM (03:51)
[2022-09-23] MEDS: Midazolam HCl/PF 2 MG/2 ML VIAL 1 MG IM (03:51)
--- NOTE | 2022-09-23 04:34 | ED_ITS ---
HPI - Psych General Chief Complaint: Psychiatric Symptoms Stated Complaint: SI Time Seen by Provider: 09/23/22 03:44 Source: patient Mode of arrival: ambulatory History of Present Illness HPI Narrative: 42-year-old female who presents with significant AVH and responding to internal stimuli, in addition verbally threatening staff using abusive language and reporting suicidal at ideation and vacillating between being tearful and aggressive. Patient is not able to provide history at this time but does follow commands. Related Data Home Medications Medication Instructions Recorded Confirmed divalproex 500 mg tablet,extended 2 tab PO BEDTIME 07/12/22 07/12/22 release 24 hr hydroxyzine HCl 50 mg tablet 1.5 tab PO DAILY 07/12/22 07/12/22 nicotine 21 mg/24 hr daily 1 patch topical DAILY 07/12/22 07/12/22 transdermal patch risperidone 2 mg tablet 2 mg PO QAM 07/12/22 07/12/22 risperidone 4 mg tablet 4 mg PO BEDTIME 07/12/22 07/12/22 trazodone 50 mg tablet 1 tab PO BEDTIME PRN insomnia 07/12/22 07/12/22 Allergies Allergy/AdvReac Type Severity Reaction Status Date / Time haloperidol [From HALDOL] Allergy Mild DROWSY Verified 11/06/20 20:26 From HALDOL Allergy Mild DROWSY Uncoded 07/28/20 17:43 From SEROQUEL Allergy Mild AUDITORY Uncoded 07/28/20 17:43 HALLUCINATIONS Review of Systems Review of Systems: Pertinent positives and negatives as stated in HPI. Otherwise ROS is unable to be assessed. [facility] Past Medical History Source: nursing notes reviewed Medical History Cannabis use disorder, moderate, dependence Cocaine use disorder Schizoaffective disorder Social History Social History Household Members: Other Household Members Other:: lives with sister Housing: Apartment Do you presently have visiting nurse or other home services: No Alcohol intake: current Alcohol intake frequency: 0-2 drinks per day Patient Tobacco Use Status: Current everyday Tobacco user Tobacco use type: Cigarette Cigarette Packs Per Day: 1 Cigarettes Per Day: 20.0 Years Smoked: 10 Second Hand Smoke Exposure: No Substance Use Type: Crack/Cocaine service: No Sexual orientation: Did not discuss Physical Exam Vital Signs: Vital Signs: Last Vital Signs Temp 98.7 F 09/23/22 04:07 Pulse 107 H 09/23/22 04:07 Resp 22 H 09/23/22 04:07 BP 139/92 H 09/23/22 04:07 Pulse Ox 97 09/23/22 04:07 O2 Del Method 09/23/22 04:07 BMI result Body Mass Index 24.7 VITAL SIGNS: Reviewed. GENERAL: Well developed, well nourished, in no acute distress. HEAD: Normocephalic/atraumatic EYES: PERRLA, EOMI EARS: Ext canals without abnormality OROPHARYNX: no oral lesions noted, posterior pharynx clear LUNGS: Normal breath sounds. No adventitious sounds or accessory muscle use. SpO2<97> CARDIOVASCULAR: Regular rate and rhythm without noted murmurs ABDOMEN: Soft, non-tender, non-distended with bowel sounds. MUSCULOSKELETAL: No tenderness, deformities, or effusions noted on gross inspection. EXTREMITIES: No cyanosis, clubbing or edema. SKIN: Inspection of the skin reveals no rashes NEUROLOGIC: Alert and oriented x 2. Strength and sensation to light touch were grossly intact x 4, cranial nerves 2-12 are grossly intact. PSYCH: Aggressive, tearful. Course Course Course Narrative: 42-year-old female with history and clinical presentation consistent with psychosis and aggressive behavior requiring medication restraint which patient was compliant with. On re-evaluation she is resting comfortably and is hemodynamically stable. UDS, ethanol as well as urine are pending. BA chin consult placed. Reevaluation(s) Reevaluation #1: Patient placed in physician observation because the patient needed more time for medical clearance and then subsequent pH and evaluation. At the time observation was started the patient's vital signs were stable, patient is drowsy and slightly agitated, neuro: Nonfocal, CV RRR, lungs clear Time: 04:40 Medications Administered Discontinued Medications Generic Name Dose Route Start Last Admin Trade Name Freq PRN Reason Stop Dose Admin Diphenhydramine HCl 50 mg 09/23/22 03:42 09/23/22 03:51 Diphenhydramine Hcl 50 Mg/Ml Vial IM 09/23/22 03:43 50 mg ONCE ONE Administration Midazolam HCl 1 mg 09/23/22 03:42 09/23/22 03:51 Midazolam Hcl/Pf 2 Mg/2 Ml Vial IM 09/23/22 03:43 1 mg ONCE ONE Administration Olanzapine 5 mg 09/23/22 03:42 09/23/22 03:51 Olanzapine 10 Mg Vial IM 09/23/22 03:43 5 mg ONCE ONE Administration Discharge Plan Discharge Clinical Impression: Schizoaffective disorder, Acute psychosis Patient Disposition: Still a Patient Prescriptions: No Action trazodone 50 mg tablet 1 tab PO BEDTIME PRN (Reason: insomnia) risperidone 4 mg tablet 4 mg PO BEDTIME risperidone 2 mg Tablet 2 mg PO QAM divalproex 500 mg tablet extended release 24 hr 2 tab PO BEDTIME hydroxyzine HCl 50 mg tablet 1.5 tab PO DAILY nicotine 21 mg/24 hr patch 24 hour 1 patch topical DAILY
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
--- NOTE | 2022-09-23 05:52 | PC.NURSE ---
Patient currently out of restraints, sleeping in stretcher. Several security and this RN required to secure belongings and change patient into safe hospital attire. Patient remains delusional and hallucinating, conversing with people not present, hearing voices, and making threatening statements and gestures towards staff. She is very easily startled and goes from resting/calm/cooperative to threatening and violent in a matter of seconds. Unable to obtain bloodwork at this time due to safety concerns.
--- NOTE | 2022-09-23 06:03 | PC.NURSE ---
Unable to obtain bloodwork x several attempts- patient becomes agitated and combative each time. MD Lennon made aware now- OK to hold off on bloodwork for now.
--- NOTE | 2022-09-23 06:34 | PC.NURSE ---
bhn consult entered by this RN now
--- NOTE | 2022-09-23 07:40 | PC.NURSE ---
attempted to draw blood on patient she stated not right now, i let the patient know that after she wakes i will try to draw her blood then
--- NOTE | 2022-09-23 08:43 | PC.NURSE ---
Pt sleeping, respirations even and unlabored. Patient observer at bedside.
--- NOTE | 2022-09-23 11:47 | PC.NURSE ---
Pt verbally aggressive, attempting to obtain vitals and pt yelling out and swearing
--- NOTE | 2022-09-23 11:54 | PC.NURSE ---
Pt states feeling awful, hearing voices and seeing things. Continues to yell out at times.
--- NOTE | 2022-09-23 12:54 | PC.NURSE ---
Addendum entered by Nayely Kc 09/23/22 16:45: Smart sheet sent. Addendum entered by Nayely Kc 09/23/22 16:37: Pt requesting for medication to get the voices to stop . Pt medicated with Zyprexa PO. Allowing blood work at this time. Original Note: Pt assisted to pod 1 with assistance of security.
[2022-09-23] MEDS: OLANZapine 10 MG TABLET PO (16:32)
[2022-09-23 17:17] LABS: Ethanol < 10 mg/dL
[2022-09-23 17:23] LABS: COVID-19 Test Negative (Negative); IDNOW Serial# 08D9AD1C
[2022-09-23] MEDS: hydrOXYzine HCL 50 MG TABLET PO (21:04)
[2022-09-23] MEDS: Divalproex Sodium ER 500 MG TAB.ER.24H 1000 MG PO (21:04)
[2022-09-23] MEDS: traZODone HCL 50 MG TABLET PO (21:05)
[2022-09-23] MEDS: risperiDONE 2 MG TABLET 4 MG PO (21:05)
[2022-09-24] MEDS: Omeprazole 20 MG CAPSULE.DR PO (06:32)
[2022-09-24 06:37] VITALS: BP 116/33; PULSE 59; RESP 16; TEMP 36.9; O2SAT 99
--- NOTE | 2022-09-24 06:50 | PC.NURSE ---
PT slept through the night without incident or complaints. 15min checks done
[2022-09-24 07:18] LABS: Appearance Urine Clear; Color Urine Dark Yellow; Glucose Urine UA Negative (Negative); Leukocyte Esterase Urine Moderate (2+) (Negative); Nitrite Urine Negative (Negative); Specific Gravity - Urine >= 1.030 (1.005-1.025); UMIC TRIGGER UACC YES; Urine Blood Negative (Negative); Urine Ketones Trace mg/dL (Negative); Urine Protein Trace mg/dL (Neg-Trace)
[2022-09-24 07:19] LABS: UPreg QC Valid YES; Urine Pregnancy NEGATIVE (NEGATIVE)
[2022-09-24 07:22] LABS: Bacteria Urine Trace (None Seen); UACC Culture Trigger YES
[2022-09-24 07:23] LABS: Amphetamine Screen Urine Not Detected (Not Detect); Barbiturates, Urine Not Detected (Not Detect); Benzodiazepines Screen Urine POSITIVE (Not Detect); Cannabinoid Screen Urine Not Detected (Not Detect); Cocaine Screen Urine POSITIVE (Not Detect); Fentanyl, urine POSITIVE (Not Detect); Opiate Screen Urine Not Detected (Not Detect); Phencyclidine Screen Urine Not Detected (Not Detect)
[2022-09-24] MEDS: Nicotine 21 MG PATCH.TD24 TRANSDERMA (10:22)
[2022-09-24] MEDS: Thiamine HCL 100 MG TABLET PO (10:22)
[2022-09-24] MEDS: Multivitamin TABLET 1 TAB PO (10:22)
[2022-09-24] MEDS: risperiDONE 2 MG TABLET PO (10:22)
[2022-09-24] MEDS: Ferrous Sulfate 324 MG TABLET.DR PO (10:24)
--- NOTE | 2022-09-24 11:50 | ECG_ITS ---
Test Reason : cocaine use Blood Pressure : / mmHG Vent. Rate : 055 BPM Atrial Rate : 055 BPM P-R Int : 128 ms QRS Dur : 090 ms QT Int : 458 ms P-R-T Axes : 065 060 021 degrees QTc Int : 438 ms Sinus bradycardia with Sinus Arrhythmia Nonspecific T wave abnormality Abnormal ECG T wave amplitude has decreased in Anterior leads Referred By: Maeve Lennon Electronically Signed By:CHICHI CARTWRIGHT MD
--- NOTE | 2022-09-24 12:58 | PC.NURSE ---
rn to rn given to [place].
[2022-09-24 14:49] LABS: MANUAL DIFF FLAG NO
[2022-09-24 14:57] LABS: Basophils Percent Auto 0.7 % (0-2); Eosinophils Absolute Auto 0.8 X10*3/uL (0.0-0.4); Eosinophils Percent Auto 13.5 % (0-4); Hematocrit 36.1 % (37.0-47.0); Hemoglobin 11.5 g/dl (12.0-16.0); Imm Gran Abs Auto 0.01 X10*3/uL (0.00-0.03); Imm Gran Pct Auto 0.2 % (0.0-0.4); Lymphocytes Absolute Auto 3.3 X10*3/uL (1.2-4.9); Lymphocytes Percent Auto 55.8 % (20-40); Mean Corpuscular HGB Conc 31.9 g/dl (31.0-35.0); Mean Corpuscular Hemoglobin 26.7 pg (27.0-33.0); Mean Platelet Volume 9.4 fL (9.4-12.3); Monocytes Absolute Auto 0.5 X10*3/uL (0.1-1.2); Monocytes Percent Auto 8.4 % (2-11); Neutrophils Absolute Auto 1.3 x10*3/uL (2.0-8.3); Neutrophils Percent Auto 21.4 % (45-73); Platelet Count 378 X10*3/uL (160-400); White Blood Count 5.9 X10*3/uL (4.8-10.8)
[2022-09-24 15:03] LABS: Anion Gap 11 (12-20); Blood Urea Nitrogen 13 mg/dL (9-16); Carbon Dioxide 25 mmol/L (22-29); Chloride 111 mmol/L (96-108); Creatinine Clr Calc Pharmacy 76.2; Estimated Glomerular Filt Rate > 60; Glucose Random 82 mg/dL (60-115); Sodium 143 mmol/L (135-145)
[2022-09-24 16:30] VITALS: BP 112/64; PULSE 83; TEMP 36.1
[2022-09-24] MEDS: Divalproex Sodium ER 500 MG TAB.ER.24H 1000 MG PO (20:54)
[2022-09-24] MEDS: risperiDONE 2 MG TABLET 4 MG PO (20:55)
--- NOTE | 2022-09-25 00:16 | PC.ADMIT ---
A 42 year old Ghanaian-speaking female was [facility] CV at 1620 following referral from [facility] ED and CARE team. Pt is known to staff on M-5 from past admissions; pt has numerous admissions elsewhere for psychiatric and substance issues. Pt presented to [facility] ED via ambulance on 09/24/22 following complaints of command AH and SI accompanied by abusive language and verbal threats towards staff. Pt was alternately tearful and aggressive and required medication and mechanical restraint due to combativeness. In CARE team assessment pt reported that voices tell her to kill herself and say mean things. Pt reported VH but declined to describe them. Pt reported decompensation and that her medications were not working, though it is reported in CARE team assessment pt is noncompliant with medications. Pt is a poor historian and was falling asleep during admission. Pt is currently homeless and staying in a [facility]. During admission pt reported current SI, but no plan. Pt says she does not want to wake up. Pt says she can seek help from staff if needed. Pt denies HI and urges to self harm. Pt reports is sleeping well; pt repeatedly fell asleep during admission. Pt does not have a therapist and was hoping for referral. Pt has history of opioid, benzodiazepine, cocaine and Etoh use. Pt denies current withdrawal symptoms. Medical issues include only mild anemia. [id number] done, admission orders obtained and initial treatment plan completed. Pt still needs to do safety tool as she was too tired to complete it. Pt is resting in her bedroom at this time on 15 minute safety checks.
[2022-09-25] MEDS: Omeprazole 20 MG CAPSULE.DR PO (06:39)
[2022-09-25] MEDS: Thiamine HCL 100 MG TABLET PO (08:34)
[2022-09-25] MEDS: risperiDONE 2 MG TABLET PO (08:34)
[2022-09-25] MEDS: Ferrous Sulfate 324 MG TABLET.DR PO (08:34)
[2022-09-25] MEDS: Multivitamin TABLET 1 TAB PO (08:34)
[2022-09-25] MEDS: Nicotine 21 MG PATCH.TD24 TRANSDERMA (08:37)
[2022-09-25 08:40] VITALS: BP 108/73; PULSE 101; TEMP 36.1; O2SAT 100
[2022-09-25 09:30] LABS: Estimated Average Glucose 91 mg/dL; Hemoglobin A1c % 4.8 %
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
[2022-09-25 11:37] LABS: Folate 10.3 ng/mL (> or = 4.0); Vitamin B12 430 pg/mL (200-900)
[2022-09-25 11:53] LABS: Free T4 (Free Thyroxine) 1.08 ng/dL (0.71-1.85); Thyroid Stimulating Hormone 0.08 uIU/mL (0.32-4.0)
[2022-09-25 12:01] LABS: Alanine Aminotransferase 11 U/L (0-31); Albumin Level 3.7 g/dL (3.5-5.0); Alkaline Phosphatase 42 U/L (39-117); Anion Gap 14 (12-20); Aspartate Amino Transferase 16 U/L (5-31); Bilirubin Total < 0.2 mg/dL (0.0-1.0); Blood Urea Nitrogen 18 mg/dL (9-16); Calcium 8.6 mg/dL (8.4-10.2); Carbon Dioxide 23 mmol/L (22-29); Chloride 110 mmol/L (96-108); Cholesterol 129 mg/dL; Creatinine Clr Calc Pharmacy 72.8; Estimated Glomerular Filt Rate > 60; Glucose Fasting 76 mg/dL (60-99); HDL Cholesterol 49 mg/dL; LDL Cholesterol Calculated 74 mg/dl; Magnesium 2.1 mg/dL (1.6-2.6); Potassium 4.7 mmol/L (3.3-5.1); Sodium 142 mmol/L (135-145); Total Protein 6.5 g/dL (6.5-8.0); Triglycerides 34 mg/dL
[2022-09-25 16:10] LABS: Appearance Urine Clear; Color Urine Yellow; Glucose Urine UA Negative (Negative); Leukocyte Esterase Urine Trace (Negative); Nitrite Urine Negative (Negative); PH 6.5 (5.0-9.0); Specific Gravity - Urine 1.025 (1.005-1.025); UMIC TRIGGER UACC YES; Urine Blood Negative (Negative); Urine Ketones Trace mg/dL (Negative); Urine Protein Negative (Neg-Trace)
[2022-09-25 16:57] VITALS: BP 107/56; PULSE 85; TEMP 36.2; O2SAT 98
[2022-09-25 17:04] LABS: Bacteria Urine None Seen (None Seen); Hyaline Casts Urine 0-2 /LPF (0-2); Squamous Epithelial Cell Urine 0-2 /HPF (0-2); WBC Urine 0-5 /HPF (0-5)
[2022-09-25] MEDS: Divalproex Sodium ER 500 MG TAB.ER.24H 1000 MG PO (20:08)
[2022-09-25] MEDS: risperiDONE 2 MG TABLET 4 MG PO (20:09)
[2022-09-26] MEDS: risperiDONE 2 MG TABLET PO (08:03)
[2022-09-26] MEDS: Thiamine HCL 100 MG TABLET PO (08:03)
[2022-09-26] MEDS: Multivitamin TABLET 1 TAB PO (08:03)
[2022-09-26] MEDS: Ferrous Sulfate 324 MG TABLET.DR PO (08:03)
[2022-09-26] MEDS: Omeprazole 20 MG CAPSULE.DR PO (08:03)
[2022-09-26] MEDS: Nicotine 21 MG PATCH.TD24 TRANSDERMA (08:03)
[2022-09-26 08:20] VITALS: BP 106/62; PULSE 81; TEMP 36.1; O2SAT 99
--- NOTE | 2022-09-26 08:44 | HO.PSYCHPN ---
Subjective Subjective Date of Service: 09/26/22 Reason For Visit: Schizoaffective Disorder Interim History: Patient reports she is feeling much better having come to the unit and been able to rest. Patient is lying in bed, friendly and pleasant on approach. She says her mood Is good... better and denies any SI at all. She also says auditory hallucinations are much lower. Patient reports sleeping and eating well. She said she would like to continue resting. Mental Status Exam Mental Status Exam Narrative: Pt is alert and oriented; behavior is cooperative, pleasant, cooperative, calm; not distracted; patient is not in distress; dressed in hospital attire, adequate hygiene; mood is described as better and affect congruent, brighter; Speech normal rate, prosody, volume; no latency or thought blocking observed; still some psychomotor retardation present; thought process is goal directed; Thought content is on dealing with AH, tx, getting into a program; otherwise pertinent to relevant topics and without any delusional content, paranoid ideations or grandiosity; denies SI/HI; patient reports AH significantly reduced; patient does not appear to be internally preoccupied; Patients insight and judgment are impaired but improving. Diagnostics Vital Signs (24Hr): Vital Signs - 24 hr 09/25/22 16:57 Temperature 97.2 F Pulse Rate 85 Blood Pressure 107/56 L Pulse Oximetry 98 Oxygen Delivery Method Room Air BMI result Body Mass Index 24.7 Labs Results: 09/24/22 14:46 09/25/22 08:09 Labs: Laboratory Results - last 48 hr 09/24/22 09/24/22 09/25/22 14:46 14:46 08:09 WBC 5.9 RBC 4.30 Hgb 11.5 L Hct 36.1 L MCV 84.0 MCH 26.7 L MCHC 31.9 RDW 15.0 Plt Count 378 MPV 9.4 Immature Gran % (Auto) 0.2 Neut % (Auto) 21.4 L Lymph % (Auto) 55.8 H [place] % (Auto) 8.4 Eos % (Auto) 13.5 H Baso % (Auto) 0.7 Lymph # (Auto) 3.3 [place] # (Auto) 0.5 Eos # (Auto) 0.8 H Baso # (Auto) 0.0 Abs Immat Gran (auto) 0.01 Absolute Neuts (auto) 1.3 L Absolute Nucleated RBC 0.000 Nucleated RBC % (auto) 0.0 Sodium 143 142 Potassium 4.0 4.7 Chloride 111 H 110 H Carbon Dioxide 25 23 Anion Gap 11 L 14 BUN 13 18 H Creatinine 0.87 0.91 Estim Creat Clear Calc 76.2 72.8 Estimated GFR > 60 > 60 Random Glucose 82 Fasting Glucose 76 Estimat Average Glucose Hemoglobin A1c % Calcium 9.0 8.6 Magnesium 2.1 Total Bilirubin < 0.2 AST 16 ALT 11 Alkaline Phosphatase 42 Total Protein 6.5 Albumin 3.7 Triglycerides 34 Cholesterol 129 D LDL Cholesterol, Calc 74 HDL Cholesterol 49 D Vitamin B12 Folate TSH 0.08 L Free T4 1.08 Urine Color Urine Appearance Urine pH Ur Specific [place] Urine Protein Urine Glucose (UA) Urine Ketones Urine Blood Urine Nitrite Ur Leukocyte Esterase Urine RBC Urine WBC Ur Squamous Epith Cells Urine Bacteria Hyaline Casts 09/25/22 09/25/22 09/25/22 08:09 08:09 15:40 WBC RBC Hgb Hct MCV MCH MCHC RDW Plt Count MPV Immature Gran % (Auto) Neut % (Auto) Lymph % (Auto) [place] % (Auto) Eos % (Auto) Baso % (Auto) Lymph # (Auto) [place] # (Auto) Eos # (Auto) Baso # (Auto) Abs Immat Gran (auto) Absolute Neuts (auto) Absolute Nucleated RBC Nucleated RBC % (auto) Sodium Potassium Chloride Carbon Dioxide Anion Gap BUN Creatinine Estim Creat Clear Calc Estimated GFR Random Glucose Fasting Glucose Estimat Average Glucose 91 Hemoglobin A1c % 4.8 Calcium Magnesium Total Bilirubin AST ALT Alkaline Phosphatase Total Protein Albumin Triglycerides Cholesterol LDL Cholesterol, Calc HDL Cholesterol Vitamin B12 430 Folate 10.3 TSH Free T4 Urine Color Yellow Urine Appearance Clear Urine pH 6.5 Ur Specific [place] 1.025 Urine Protein Negative Urine Glucose (UA) Negative Urine Ketones Trace Urine Blood Negative Urine Nitrite Negative Ur Leukocyte Esterase Trace H Urine RBC 3-5 H Urine WBC 0-5 Ur Squamous Epith Cells 0-2 Urine Bacteria None Seen Hyaline Casts 0-2 Medications Medications Current Medications Acetaminophen (Acetaminophen 325 Mg Tablet) 650 mg PO Q6H PRN PRN Reason: Headache/Pain Mild Scale (1-3) Al Hydroxide/Mg Hydroxide (Magnesium Hydrox/Alum Hydrox 30 Ml Oral.Susp) 30 ml PO Q6H PRN PRN Reason: Heartburn/Nausea Albuterol Sulfate (Albuterol Sulfate 90 Mcg 8 Gm Inhaler) 2 puff INHALE Q4H PRN PRN Reason: wheezing Divalproex Sodium (Divalproex Sodium Er 500 Mg Tab.Er.24h) 1,000 mg PO BEDTIME [facility] Last Admin: 09/25/22 20:08 Dose: 1,000 mg Ferrous Sulfate (Ferrous Sulfate 324 Mg Tablet.) 324 mg PO DAILY [facility] Last Admin: 09/26/22 08:03 Dose: 324 mg Hydroxyzine HCl (Hydroxyzine Hcl 50 Mg Tablet) 50 mg PO BID PRN PRN Reason: anxiety Last Admin: 09/23/22 21:04 Dose: 50 mg Magnesium Hydroxide (Milk Of Magnesia 30 Ml Oral.Susp) 30 ml PO DAILY PRN PRN Reason: Constipation Multivitamins/Vitamin C (Multivitamin Tablet) 1 tab PO DAILY [facility] Last Admin: 09/26/22 08:03 Dose: 1 tab Nicotine (Nicotine 21 Mg Patch.Td24) 21 mg TRANSDERMA DAILY [facility] Last Admin: 09/26/22 08:03 Dose: 21 mg Omeprazole (Omeprazole 20 Mg Capsule.Dr) 20 mg PO DAILY@0630 [facility] Last Admin: 09/26/22 08:03 Dose: 20 mg Risperidone (Risperidone 2 Mg Tablet) 2 mg PO DAILY [facility] Last Admin: 09/26/22 08:03 Dose: 2 mg Risperidone (Risperidone 2 Mg Tablet) 4 mg PO BEDTIME [facility] Last Admin: 09/25/22 20:09 Dose: 4 mg Thiamine HCl (Thiamine Hcl 100 Mg Tablet) 100 mg PO DAILY [facility] Last Admin: 09/26/22 08:03 Dose: 100 mg Trazodone HCl (Trazodone Hcl 50 Mg Tablet) 50 mg PO BEDTIME PRN PRN Reason: insomnia Last Admin: 09/23/22 21:05 Dose: 50 mg Allergies Allergies Allergy/AdvReac Type Severity Reaction Status Date / Time haloperidol [From HALDOL] Allergy Mild DROWSY Verified 09/23/22 14:07 quetiapine [From Seroquel] Allergy Hallucinati Verified 09/23/22 19:36 ons Assessment & Plan Assessment & Plan (1) Schizoaffective disorder: Status: Chronic Code(s): F25.9 - Schizoaffective disorder, unspecified (2) Chronic post-traumatic stress disorder (PTSD): Status: Acute Code(s): F43.12 - Post-traumatic stress disorder, chronic (3) Cocaine use disorder: Status: Acute Code(s): F14.10 - Cocaine abuse, uncomplicated Plan Patient is a 42-year-old female with history of schizoaffective disorder, cocaine abuse who presents for depression, psychotic symptoms and SI, in face of relapse with cocaine and being off medications. In the emergency room patient was agitated, crying, making verbal threats to staff and and did not needing to be restrained. On the unit, patient is more calm, though with depression and internal preoccupation. She reports that medications help and wants to get back on them. Currently continues with AH; intermittent SI but no plans or intent. 09/26 patient has improved some, mood is better, no SI, AH significantly reduced. Patient would like to get into a program though improving, her improvement remains fragile and she is at high risk for decompensating; patient is to remain on the unit for continued medication management and stability. Continue current treatment plan. Plan: CV Q 15 minute checks Continue Risperdal 2mg in AM and 4mg qhs Continue Depakote Er 1000mg daily Valproic acid level ordered; associated labs ordered Pt has been on Prazosin qhs in past for nightmares I spent minutes with the patient and/or on the patient floor today, greater than?50% of which was spent counseling/coordinating care. Patient educated on: diagnosis, medication risk/benefits and substance abuse Informed Consent: understands Reason for contiued inpatient stay Substantial Risk for: rapid decompensation
[2022-09-26] MEDS: hydrOXYzine HCL 50 MG TABLET PO (16:13)
[2022-09-26 18:00] VITALS: BP 122/74; PULSE 66; RESP 18; TEMP 36.3; O2SAT 100
[2022-09-26] MEDS: risperiDONE 2 MG TABLET 4 MG PO (20:47)
[2022-09-26] MEDS: Divalproex Sodium ER 500 MG TAB.ER.24H 1000 MG PO (20:47)
[2022-09-27 06:00] VITALS: BP 110/55; PULSE 75; RESP 18
[2022-09-27 07:00] VITALS: BMI 25.0
[2022-09-27] MEDS: Nicotine 21 MG PATCH.TD24 TRANSDERMA (07:59)
[2022-09-27] MEDS: risperiDONE 2 MG TABLET PO (07:59)
[2022-09-27] MEDS: Thiamine HCL 100 MG TABLET PO (07:59)
[2022-09-27] MEDS: Multivitamin TABLET 1 TAB PO (07:59)
[2022-09-27] MEDS: Ferrous Sulfate 324 MG TABLET.DR PO (07:59)
[2022-09-27] MEDS: Omeprazole 20 MG CAPSULE.DR PO (07:59)
[2022-09-27 08:39] LABS: Ammonia 58 umol/L (13-55)
[2022-09-27 09:08] LABS: Alanine Aminotransferase 8 U/L (0-31); Albumin Level 3.7 g/dL (3.5-5.0); Alkaline Phosphatase 39 U/L (39-117); Aspartate Amino Transferase 12 U/L (5-31); Bilirubin Direct < 0.2 mg/dL (0.0-0.5); Bilirubin Total 0.2 mg/dL (0.0-1.0); Total Protein 6.4 g/dL (6.5-8.0)
[2022-09-27 09:14] LABS: Valproate 66.3 mcg/mL (50.0-100.0)
--- NOTE | 2022-09-27 16:14 | HO.PSYCHPN ---
Subjective Subjective Date of Service: 09/27/22 Reason For Visit: Schizoaffective Disorder Interim History: Patient reports better mood, denies any SI and feels depression is resolved; also says auditory hallucinations fully resolved. ?She remains distracted and a little disorganized, with marginal hygiene.? Patient discussed medications in more detail and decided she wanted the long-acting injectable, encouraged by the fact that that auditory hallucinations might remain manageable even if she relapses on cocaine which she says makes the much worse.? Contract Negotiation Manager offered to review risks/side effects of both Depakote and Risperdal however patient said she did wanted discuss them and was fine to continue.? Also discussed elevated ammonia and patient agrees to further lab work. Mental Status Exam Mental Status Exam Narrative: Pt is alert and oriented; behavior is cooperative, pleasant, cooperative, calm; still a little distracted; patient is not in distress; dressed in casual attire, with marginal hygiene; mood is described as better and affect congruent, brighter; Speech normal rate, prosody, volume; no latency or thought blocking observed; still some psychomotor retardation present; thought process is goal directed; Thought content is on dealing with AH, tx, getting into a program; otherwise pertinent to relevant topics and without any delusional content, paranoid ideations or grandiosity; denies SI/HI; patient reports AH resolved; patient does not appear to be internally preoccupied; Patients insight and judgment are impaired but improving. Diagnostics Vital Signs (24Hr): Vital Signs - 24 hr 09/26/22 18:00 09/27/22 06:00 Temperature 97.3 F Pulse Rate 66 75 Respiratory Rate 18 18 Blood Pressure 122/74 110/55 L Pulse Oximetry 100 Oxygen Delivery Method Room Air Room Air BMI result Body Mass Index 25.0 Labs Results: 09/24/22 14:46 09/25/22 08:09 Labs: Laboratory Results - last 48 hr 09/25/22 09/27/22 09/27/22 15:40 08:13 08:13 Total Bilirubin 0.2 Direct Bilirubin < 0.2 AST 12 ALT 8 Alkaline Phosphatase 39 Ammonia 58 H Total Protein 6.4 L Albumin 3.7 Urine Color Yellow Urine Appearance Clear Urine pH 6.5 Ur Specific [place] 1.025 Urine Protein Negative Urine Glucose (UA) Negative Urine Ketones Trace Urine Blood Negative Urine Nitrite Negative Ur Leukocyte Esterase Trace H Urine RBC 3-5 H Urine WBC 0-5 Ur Squamous Epith Cells 0-2 Urine Bacteria None Seen Hyaline Casts 0-2 Valproic Acid 09/27/22 08:13 Total Bilirubin Direct Bilirubin AST ALT Alkaline Phosphatase Ammonia Total Protein Albumin Urine Color Urine Appearance Urine pH Ur Specific [place] Urine Protein Urine Glucose (UA) Urine Ketones Urine Blood Urine Nitrite Ur Leukocyte Esterase Urine RBC Urine WBC Ur Squamous Epith Cells Urine Bacteria Hyaline Casts Valproic Acid 66.3 Medications Medications Current Medications Acetaminophen (Acetaminophen 325 Mg Tablet) 650 mg PO Q6H PRN PRN Reason: Headache/Pain Mild Scale (1-3) Al Hydroxide/Mg Hydroxide (Magnesium Hydrox/Alum Hydrox 30 Ml Oral.Susp) 30 ml PO Q6H PRN PRN Reason: Heartburn/Nausea Albuterol Sulfate (Albuterol Sulfate 90 Mcg 8 Gm Inhaler) 2 puff INHALE Q4H PRN PRN Reason: wheezing Divalproex Sodium (Divalproex Sodium Er 500 Mg Tab.Er.24h) 1,000 mg PO BEDTIME [facility] Last Admin: 09/26/22 20:47 Dose: 1,000 mg Ferrous Sulfate (Ferrous Sulfate 324 Mg Tablet.) 324 mg PO DAILY [facility] Last Admin: 09/27/22 07:59 Dose: 324 mg Hydroxyzine HCl (Hydroxyzine Hcl 50 Mg Tablet) 50 mg PO BID PRN PRN Reason: anxiety Last Admin: 09/26/22 16:13 Dose: 50 mg Magnesium Hydroxide (Milk Of Magnesia 30 Ml Oral.Susp) 30 ml PO DAILY PRN PRN Reason: Constipation Multivitamins/Vitamin C (Multivitamin Tablet) 1 tab PO DAILY [facility] Last Admin: 09/27/22 07:59 Dose: 1 tab Nicotine (Nicotine 21 Mg Patch.Td24) 21 mg TRANSDERMA DAILY [facility] Last Admin: 09/27/22 07:59 Dose: 21 mg Omeprazole (Omeprazole 20 Mg Capsule.) 20 mg PO DAILY@0630 [facility] Last Admin: 09/27/22 07:59 Dose: 20 mg Risperidone (Risperidone 2 Mg Tablet) 2 mg PO DAILY [facility] Last Admin: 09/27/22 07:59 Dose: 2 mg Risperidone (Risperidone 2 Mg Tablet) 4 mg PO BEDTIME [facility] Last Admin: 09/26/22 20:47 Dose: 4 mg Thiamine HCl (Thiamine Hcl 100 Mg Tablet) 100 mg PO DAILY [facility] Last Admin: 09/27/22 07:59 Dose: 100 mg Trazodone HCl (Trazodone Hcl 50 Mg Tablet) 50 mg PO BEDTIME PRN PRN Reason: insomnia Last Admin: 09/23/22 21:05 Dose: 50 mg Allergies Allergies Allergy/AdvReac Type Severity Reaction Status Date / Time haloperidol [From HALDOL] Allergy Mild DROWSY Verified 09/23/22 14:07 quetiapine [From Seroquel] Allergy Hallucinati Verified 09/23/22 19:36 ons Assessment & Plan Assessment & Plan (1) Schizoaffective disorder: Status: Chronic Code(s): F25.9 - Schizoaffective disorder, unspecified (2) Chronic post-traumatic stress disorder (PTSD): Status: Acute Code(s): F43.12 - Post-traumatic stress disorder, chronic (3) Cocaine use disorder: Status: Acute Code(s): F14.10 - Cocaine abuse, uncomplicated Plan Patient is a 42-year-old female with history of schizoaffective disorder, cocaine abuse who presents for depression, psychotic symptoms and SI, in face of relapse with cocaine and being off medications. In the emergency room patient was agitated, crying, making verbal threats to staff and and did not needing to be restrained. On the unit, patient is more calm, though with depression and internal preoccupation. She reports that medications help and wants to get back on them. Currently continues with AH; intermittent SI but no plans or intent. 09/26 patient has improved some, mood is better, no SI, AH significantly reduced. Patient would like to get into a program though improving, her improvement remains fragile and she is at high risk for decompensating; patient is to remain on the unit for continued medication management and stability. Continue current treatment plan. 09/27 Improving; no depression or SI; no AH. Agrees to Invega Sustenna. Still distracted and a little disorganized. Wants a program. Plan: CV Q 15 minute checks Ammonia slightly elevated; will repeat lab to monitor trend START Invega Sustenna 234mg IM once DC Risperdal 2mg in AM Continue 4mg qhs for now Continue Depakote Er 1000mg daily Valproic acid level ordered; associated labs ordered Pt has been on Prazosin qhs in past for nightmares I spent minutes with the patient and/or on the patient floor today, greater than?50% of which was spent counseling/coordinating care. Patient educated on: diagnosis, medication risk/benefits and substance abuse Informed Consent: understands, does not understand and further education needed Reason for contiued inpatient stay Substantial Risk for: rapid decompensation
[2022-09-27 17:21] VITALS: BP 109/64; PULSE 64; RESP 16; TEMP 36.6; O2SAT 99
[2022-09-27] MEDS: Divalproex Sodium ER 500 MG TAB.ER.24H 1000 MG PO (18:01)
[2022-09-27] MEDS: risperiDONE 2 MG TABLET 4 MG PO (18:01)
[2022-09-28 06:00] VITALS: BP 106/62; PULSE 64; RESP 16; TEMP 37; O2SAT 99
[2022-09-28] MEDS: Omeprazole 20 MG CAPSULE.DR PO (06:54)
[2022-09-28 08:20] LABS: Ammonia 60 umol/L (13-55)
[2022-09-28] MEDS: Thiamine HCL 100 MG TABLET PO (09:14)
[2022-09-28] MEDS: Ferrous Sulfate 324 MG TABLET.DR PO (09:14)
[2022-09-28] MEDS: Nicotine 21 MG PATCH.TD24 TRANSDERMA (09:14)
[2022-09-28] MEDS: Multivitamin TABLET 1 TAB PO (09:14)
--- NOTE | 2022-09-28 10:01 | HO.PSYCHPN ---
Subjective Subjective Date of Service: 09/28/22 Reason For Visit: Schizoaffective Disorder Interim History: Continues to deny AH; depression gone, no SI. Up in out of bed more and in the milieu. Remains disheveled however. Asks the same questions frequently. Pleasant and cooperative with automatic typewriter inspector however can be easily triggered into irritable reactions if feeling ignored Mental Status Exam Mental Status Exam Narrative: Pt is alert and oriented; behavior is cooperative, pleasant, however can be easily triggered into irritable reactions if feeling ignored; still a little distracted; patient is not in distress; dressed in casual attire, with marginal hygiene; mood is described as better and affect congruent, brighter; Speech normal rate, prosody, volume; no latency or thought blocking observed; still some psychomotor retardation present; thought process is goal directed; Thought content is on dealing with AH, tx, getting into a program; otherwise pertinent to relevant topics and without any delusional content, paranoid ideations or grandiosity; denies SI/HI; patient reports AH resolved; patient does not appear to be internally preoccupied; Patients insight and judgment are impaired but improving. Diagnostics Vital Signs (24Hr): Vital Signs - 24 hr 09/27/22 17:21 Temperature 97.9 F Pulse Rate 64 Respiratory Rate 16 Blood Pressure 109/64 Pulse Oximetry 99 Oxygen Delivery Method Room Air BMI result Body Mass Index 25.0 Labs Results: 09/24/22 14:46 09/25/22 08:09 Labs: Laboratory Results - last 48 hr 09/27/22 09/27/22 09/27/22 08:13 08:13 08:13 Total Bilirubin 0.2 Direct Bilirubin < 0.2 AST 12 ALT 8 Alkaline Phosphatase 39 Ammonia 58 H Total Protein 6.4 L Albumin 3.7 Valproic Acid 66.3 09/28/22 07:59 Total Bilirubin Direct Bilirubin AST ALT Alkaline Phosphatase Ammonia 60 H Total Protein Albumin Valproic Acid Medications Medications Current Medications Acetaminophen (Acetaminophen 325 Mg Tablet) 650 mg PO Q6H PRN PRN Reason: Headache/Pain Mild Scale (1-3) Al Hydroxide/Mg Hydroxide (Magnesium Hydrox/Alum Hydrox 30 Ml Oral.Susp) 30 ml PO Q6H PRN PRN Reason: Heartburn/Nausea Albuterol Sulfate (Albuterol Sulfate 90 Mcg 8 Gm Inhaler) 2 puff INHALE Q4H PRN PRN Reason: wheezing Divalproex Sodium (Divalproex Sodium Er 500 Mg Tab.Er.24h) 1,000 mg PO BEDTIME [facility] Last Admin: 09/27/22 18:01 Dose: 1,000 mg Ferrous Sulfate (Ferrous Sulfate 324 Mg Tablet.Dr) 324 mg PO DAILY [facility] Last Admin: 09/28/22 09:14 Dose: 324 mg Hydroxyzine HCl (Hydroxyzine Hcl 50 Mg Tablet) 50 mg PO BID PRN PRN Reason: anxiety Last Admin: 09/26/22 16:13 Dose: 50 mg Magnesium Hydroxide (Milk Of Magnesia 30 Ml Oral.Susp) 30 ml PO DAILY PRN PRN Reason: Constipation Multivitamins/Vitamin C (Multivitamin Tablet) 1 tab PO DAILY [facility] Last Admin: 09/28/22 09:14 Dose: 1 tab Nicotine (Nicotine 21 Mg Patch.Td24) 21 mg TRANSDERMA DAILY [facility] Last Admin: 09/28/22 09:14 Dose: 21 mg Omeprazole (Omeprazole 20 Mg Capsule.Dr) 20 mg PO DAILY@0630 [facility] Last Admin: 09/28/22 06:54 Dose: 20 mg Risperidone (Risperidone 2 Mg Tablet) 4 mg PO BEDTIME [facility] Last Admin: 09/27/22 18:01 Dose: 4 mg Thiamine HCl (Thiamine Hcl 100 Mg Tablet) 100 mg PO DAILY [facility] Last Admin: 09/28/22 09:14 Dose: 100 mg Trazodone HCl (Trazodone Hcl 50 Mg Tablet) 50 mg PO BEDTIME PRN PRN Reason: insomnia Last Admin: 09/23/22 21:05 Dose: 50 mg Allergies Allergies Allergy/AdvReac Type Severity Reaction Status Date / Time haloperidol [From HALDOL] Allergy Mild DROWSY Verified 09/23/22 14:07 quetiapine [From Seroquel] Allergy Hallucinati Verified 09/23/22 19:36 ons Assessment & Plan Assessment & Plan (1) Schizoaffective disorder: Status: Chronic Code(s): F25.9 - Schizoaffective disorder, unspecified (2) Chronic post-traumatic stress disorder (PTSD): Status: Acute Code(s): F43.12 - Post-traumatic stress disorder, chronic (3) Cocaine use disorder: Status: Acute Code(s): F14.10 - Cocaine abuse, uncomplicated Plan Patient is a 42-year-old female with history of schizoaffective disorder, cocaine abuse who presents for depression, psychotic symptoms and SI, in face of relapse with cocaine and being off medications. In the emergency room patient was agitated, crying, making verbal threats to staff and and did not needing to be restrained. On the unit, patient is more calm, though with depression and internal preoccupation. She reports that medications help and wants to get back on them. Currently continues with AH; intermittent SI but no plans or intent. 09/26 patient has improved some, mood is better, no SI, AH significantly reduced. Patient would like to get into a program though improving, her improvement remains fragile and she is at high risk for decompensating; patient is to remain on the unit for continued medication management and stability. Continue current treatment plan. 09/27 Improving; no depression or SI; no AH. Agrees to Invega Sustenna. Still distracted and a little disorganized. Wants a program. 09/28 slowly improving; no depression, SI or AVH; received Invega Sustenna today. Intermittently irritable if feeling ignored but overall appropriate with peers and staff thus far -ammonia remains mildly elevated but stable; will leave medications as is and recheck in a few days Plan: CV Q 15 minute checks Ammonia slightly elevated but stable thus far; will monitor received Invega Sustenna 234mg IM on 09/28 DC Risperdal 2mg in AM Continue 4mg qhs for now Continue Depakote Er 1000mg daily Valproic acid level ordered; associated labs ordered Pt has been on Prazosin qhs in past for nightmares I spent minutes with the patient and/or on the patient floor today, greater than?50% of which was spent counseling/coordinating care. Patient educated on: diagnosis and medication risk/benefits Informed Consent: understands Reason for contiued inpatient stay Substantial Risk for: rapid decompensation
[2022-09-28] MEDS: Lidocaine 5 % Ointment 35 GM 1 APPL TOPICAL (14:27)
[2022-09-28] MEDS: Paliperidone Palmitate 234 MG/1.5 ML SYRINGE IM (14:28)
--- NOTE | 2022-09-28 15:35 | PC.NURSE ---
Ivega systenna given today, per JAN, without complication.
[2022-09-29] MEDS: Thiamine HCL 100 MG TABLET PO (09:00)
[2022-09-29] MEDS: Multivitamin TABLET 1 TAB PO (09:00)
[2022-09-29] MEDS: Omeprazole 20 MG CAPSULE.DR PO (09:00)
[2022-09-29] MEDS: Ferrous Sulfate 324 MG TABLET.DR PO (09:00)
[2022-09-29] MEDS: Nicotine 21 MG PATCH.TD24 TRANSDERMA (09:02)
[2022-09-29 09:29] VITALS: BP 116/60; PULSE 65; RESP 18; TEMP 36.8; O2SAT 99
--- NOTE | 2022-09-29 14:53 | HO.PSYCHPN ---
Subjective Subjective Date of Service: 09/29/22 Reason For Visit: Schizoaffective Disorder Interim History: Chart reviewed. Discussed with Nursing. Overall reports feeling bored. Denies depression. No SI or HI. Does feel happy that they are catching up on sleep and resting. Reports no hallucinations in 3 days. Discussed Invega Sustenna injection and oral medications and reviewing this with primary team. Is hopeful for a CSS placement after hospitalization and and sober living. Medication Compliance: Yes Side effects from medications: No Attending Groups: Intermittent Review of Systems Acute medical concerns: No Review of Systems Review of Systems Unremarkable Mental Status Exam Mental Status Exam Narrative: Pleasant. Engaged. Organized. Euthymic. No SI. No HI. No agitation or psychosis. Insight and judgment okay Diagnostics Vital Signs (24Hr): Vital Signs - 24 hr 09/29/22 09:29 Temperature 98.2 F Pulse Rate 65 Respiratory Rate 18 Blood Pressure 116/60 Pulse Oximetry 99 Oxygen Delivery Method Room Air BMI result Body Mass Index 25.0 Labs Results: 09/24/22 14:46 09/25/22 08:09 Labs: Laboratory Results - last 48 hr 09/28/22 07:59 Ammonia 60 H Medications Medications Current Medications Acetaminophen (Acetaminophen 325 Mg Tablet) 650 mg PO Q6H PRN PRN Reason: Headache/Pain Mild Scale (1-3) Al Hydroxide/Mg Hydroxide (Magnesium Hydrox/Alum Hydrox 30 Ml Oral.Susp) 30 ml PO Q6H PRN PRN Reason: Heartburn/Nausea Albuterol Sulfate (Albuterol Sulfate 90 Mcg 8 Gm Inhaler) 2 puff INHALE Q4H PRN PRN Reason: wheezing Divalproex Sodium (Divalproex Sodium Er 500 Mg Tab.Er.24h) 1,000 mg PO BEDTIME [facility] Last Admin: 09/28/22 17:58 Dose: Not Given Ferrous Sulfate (Ferrous Sulfate 324 Mg Tablet.Dr) 324 mg PO DAILY [facility] Last Admin: 09/29/22 09:00 Dose: 324 mg Hydroxyzine HCl (Hydroxyzine Hcl 50 Mg Tablet) 50 mg PO BID PRN PRN Reason: anxiety Last Admin: 09/26/22 16:13 Dose: 50 mg Magnesium Hydroxide (Milk Of Magnesia 30 Ml Oral.Susp) 30 ml PO DAILY PRN PRN Reason: Constipation Multivitamins/Vitamin C (Multivitamin Tablet) 1 tab PO DAILY [facility] Last Admin: 09/29/22 09:00 Dose: 1 tab Nicotine (Nicotine 21 Mg Patch.Td24) 21 mg TRANSDERMA DAILY [facility] Last Admin: 09/29/22 09:02 Dose: 21 mg Omeprazole (Omeprazole 20 Mg Capsule.Dr) 20 mg PO DAILY@0630 [facility] Last Admin: 09/29/22 09:00 Dose: 20 mg Risperidone (Risperidone 2 Mg Tablet) 4 mg PO BEDTIME [facility] Last Admin: 09/28/22 17:58 Dose: Not Given Thiamine HCl (Thiamine Hcl 100 Mg Tablet) 100 mg PO DAILY [facility] Last Admin: 09/29/22 09:00 Dose: 100 mg Trazodone HCl (Trazodone Hcl 50 Mg Tablet) 50 mg PO BEDTIME PRN PRN Reason: insomnia Last Admin: 09/23/22 21:05 Dose: 50 mg Allergies Allergies Allergy/AdvReac Type Severity Reaction Status Date / Time haloperidol [From HALDOL] Allergy Mild DROWSY Verified 09/23/22 14:07 quetiapine [From Seroquel] Allergy Hallucinati Verified 09/23/22 19:36 ons Assessment & Plan Assessment & Plan (1) Schizoaffective disorder: Status: Chronic Code(s): F25.9 - Schizoaffective disorder, unspecified (2) Chronic post-traumatic stress disorder (PTSD): Status: Acute Code(s): F43.12 - Post-traumatic stress disorder, chronic (3) Cocaine use disorder: Status: Acute Code(s): F14.10 - Cocaine abuse, uncomplicated Plan Patient is a 42-year-old female with history of schizoaffective disorder, cocaine abuse who presents for depression, psychotic symptoms and SI, in face of relapse with cocaine and being off medications. In the emergency room patient was agitated, crying, making verbal threats to staff and and did not needing to be restrained. On the unit, patient is more calm, though with depression and internal preoccupation. She reports that medications help and wants to get back on them. Currently continues with AH; intermittent SI but no plans or intent. 09/26 patient has improved some, mood is better, no SI, AH significantly reduced. Patient would like to get into a program though improving, her improvement remains fragile and she is at high risk for decompensating; patient is to remain on the unit for continued medication management and stability. Continue current treatment plan. 09/27 Improving; no depression or SI; no AH. Agrees to Invega Sustenna. Still distracted and a little disorganized. Wants a program. 09/28 slowly improving; no depression, SI or AVH; received Invega Sustenna today. Intermittently irritable if feeling ignored but overall appropriate with peers and staff thus far -ammonia remains mildly elevated but stable; will leave medications as is and recheck in a few days 09/29/2022: No changes to current regimen Plan: CV Q 15 minute checks Ammonia slightly elevated but stable thus far; will monitor received Invega Sustenna 234mg IM on 09/28 DC Risperdal 2mg in AM Continue 4mg qhs for now Continue Depakote Er 1000mg daily Valproic acid level ordered; associated labs ordered Pt has been on Prazosin qhs in past for nightmares I spent minutes with the patient and/or on the patient floor today, greater than?50% of which was spent counseling/coordinating care. Reason for contiued inpatient stay Substantial Risk for: rapid decompensation
[2022-09-29 18:00] VITALS: BP 110/55; PULSE 98; RESP 16; TEMP 36.2; O2SAT 98
[2022-09-29] MEDS: Divalproex Sodium ER 500 MG TAB.ER.24H 1000 MG PO (20:13)
[2022-09-29] MEDS: risperiDONE 2 MG TABLET 4 MG PO (20:13)
[2022-09-30] MEDS: Thiamine HCL 100 MG TABLET PO (09:02)
[2022-09-30] MEDS: Nicotine 21 MG PATCH.TD24 TRANSDERMA (09:02)
[2022-09-30] MEDS: Ferrous Sulfate 324 MG TABLET.DR PO (09:02)
[2022-09-30] MEDS: Multivitamin TABLET 1 TAB PO (09:02)
[2022-09-30] MEDS: Omeprazole 20 MG CAPSULE.DR PO (09:02)
[2022-09-30 09:05] VITALS: BP 101/55; PULSE 70; RESP 16; TEMP 36.3; O2SAT 98
--- NOTE | 2022-09-30 12:35 | P.PNPSI_ITS ---
Subjective Subjective Date of Service: 09/30/22 Reason For Visit: Schizoaffective Disorder Interim History: Overall reports feeling OK without depression, SI or HI. No hallucinations in 4 days. Reports sleep is okay, with the exception of a nightmare last night which is unusual. Appetite okay. No medication concerns. Remains hopeful for a CSS placement after hospitalization and and sober living. Medication Compliance: Yes Side effects from medications: No Attending Groups: Yes Review of Systems Acute medical concerns: No Review of Systems Review of Systems Unremarkable Mental Status Exam Mental Status Exam Narrative: Pleasant. Engaged. Organized. Euthymic. No SI. No HI. No agitation or psychosis. Insight and judgment okay Diagnostics Vital Signs (24Hr): Vital Signs - 24 hr 09/29/22 18:00 09/30/22 09:05 Temperature 97.2 F 97.3 F Pulse Rate 98 70 Respiratory Rate 16 16 Blood Pressure 110/55 L 101/55 L Pulse Oximetry 98 98 Oxygen Delivery Method Room Air Room Air BMI result Body Mass Index 25.0 Labs Results: 09/24/22 14:46 09/25/22 08:09 Medications Medications Current Medications Acetaminophen (Acetaminophen 325 Mg Tablet) 650 mg PO Q6H PRN PRN Reason: Headache/Pain Mild Scale (1-3) Al Hydroxide/Mg Hydroxide (Magnesium Hydrox/Alum Hydrox 30 Ml Oral.Susp) 30 ml PO Q6H PRN PRN Reason: Heartburn/Nausea Albuterol Sulfate (Albuterol Sulfate 90 Mcg 8 Gm Inhaler) 2 puff INHALE Q4H PRN PRN Reason: wheezing Divalproex Sodium (Divalproex Sodium Er 500 Mg Tab.Er.24h) 1,000 mg PO BEDTIME [facility] Last Admin: 09/29/22 20:13 Dose: 1,000 mg Ferrous Sulfate (Ferrous Sulfate 324 Mg Tablet.Dr) 324 mg PO DAILY [facility] Last Admin: 09/30/22 09:02 Dose: 324 mg Hydroxyzine HCl (Hydroxyzine Hcl 50 Mg Tablet) 50 mg PO BID PRN PRN Reason: anxiety Last Admin: 09/26/22 16:13 Dose: 50 mg Magnesium Hydroxide (Milk Of Magnesia 30 Ml Oral.Susp) 30 ml PO DAILY PRN PRN Reason: Constipation Multivitamins/Vitamin C (Multivitamin Tablet) 1 tab PO DAILY [facility] Last Admin: 09/30/22 09:02 Dose: 1 tab Nicotine (Nicotine 21 Mg Patch.Td24) 21 mg TRANSDERMA DAILY [facility] Last Admin: 09/30/22 09:02 Dose: 21 mg Omeprazole (Omeprazole 20 Mg Capsule.Dr) 20 mg PO DAILY@0630 [facility] Last Admin: 09/30/22 09:02 Dose: 20 mg Risperidone (Risperidone 2 Mg Tablet) 4 mg PO BEDTIME [facility] Last Admin: 09/29/22 20:13 Dose: 4 mg Thiamine HCl (Thiamine Hcl 100 Mg Tablet) 100 mg PO DAILY [facility] Last Admin: 09/30/22 09:02 Dose: 100 mg Trazodone HCl (Trazodone Hcl 50 Mg Tablet) 50 mg PO BEDTIME PRN PRN Reason: insomnia Last Admin: 09/23/22 21:05 Dose: 50 mg Allergies Allergies Allergy/AdvReac Type Severity Reaction Status Date / Time haloperidol [From HALDOL] Allergy Mild DROWSY Verified 09/23/22 14:07 quetiapine [From Seroquel] Allergy Hallucinati Verified 09/23/22 19:36 ons Assessment & Plan Assessment & Plan (1) Schizoaffective disorder: Status: Chronic Code(s): F25.9 - Schizoaffective disorder, unspecified (2) Chronic post-traumatic stress disorder (PTSD): Status: Acute Code(s): F43.12 - Post-traumatic stress disorder, chronic (3) Cocaine use disorder: Status: Acute Code(s): F14.10 - Cocaine abuse, uncomplicated Plan Patient is a 42-year-old female with history of schizoaffective disorder, cocaine abuse who presents for depression, psychotic symptoms and SI, in face of relapse with cocaine and being off medications. In the emergency room patient was agitated, crying, making verbal threats to staff and and did not needing to be restrained. On the unit, patient is more calm, though with depression and internal preoccupation. She reports that medications help and wants to get back on them. Currently continues with AH; intermittent SI but no plans or intent. 09/26 patient has improved some, mood is better, no SI, AH significantly reduced. Patient would like to get into a program though improving, her imp rovement remains fragile and she is at high risk for decompensating; patient is to remain on the unit for continued medication management and stability. Continue current treatment plan. 09/27 Improving; no depression or SI; no AH. Agrees to Invega Sustenna. Still distracted and a little disorganized. Wants a program. 09/28 slowly improving; no depression, SI or AVH; received Invega Sustenna tosandro ay. Intermittently irritable if feeling ignored but overall appropriate with peers and staff thus far -ammonia remains mildly elevated but stable; will leave medications as is and recheck in a few days 09/29/2022: No changes to current regimen 09/30/2022: No changes to current regimen Plan: CV Q 15 minute checks Ammonia slightly elevated but stable thus far; will monitor received Invega Sustenna 234mg IM on 09/28 DC Risperdal 2mg in AM Continue 4mg qhs for now Continue Depakote Er 1000mg daily Valproic acid level ordered; associated labs ordered Pt has been on Prazosin qhs in past for nightmares I spent minutes with the patient and/or on the patient floor today, greater than?50% of which was spent counseling/coordinating care. Reason for contiued inpatient stay Substantial Risk for: inability to function
[2022-09-30 18:00] VITALS: BP 97/51; PULSE 68; RESP 16; TEMP 36.2; O2SAT 99
[2022-09-30] MEDS: Divalproex Sodium ER 500 MG TAB.ER.24H 1000 MG PO (19:49)
[2022-09-30] MEDS: risperiDONE 2 MG TABLET 4 MG PO (19:50)
[2022-10-01] MEDS: Omeprazole 20 MG CAPSULE.DR PO (06:18)
[2022-10-01 07:57] LABS: Ammonia 49 umol/L (13-55)
[2022-10-01 08:07] LABS: Alanine Aminotransferase 11 U/L (0-31); Albumin Level 3.8 g/dL (3.5-5.0); Alkaline Phosphatase 48 U/L (39-117); Aspartate Amino Transferase 14 U/L (5-31); Total Protein 6.5 g/dL (6.5-8.0)
[2022-10-01 08:20] LABS: Bilirubin Direct < 0.2 mg/dL (0.0-0.5); Bilirubin Total < 0.2 mg/dL (0.0-1.0)
[2022-10-01] MEDS: Nicotine 21 MG PATCH.TD24 TRANSDERMA (08:21)
[2022-10-01] MEDS: Thiamine HCL 100 MG TABLET PO (08:22)
[2022-10-01] MEDS: Multivitamin TABLET 1 TAB PO (08:22)
[2022-10-01] MEDS: Ferrous Sulfate 324 MG TABLET.DR PO (08:22)
--- NOTE | 2022-10-01 08:57 | HO.PSYCHPN ---
Subjective Subjective Date of Service: 10/01/22 Reason For Visit: Schizoaffective Disorder Interim History: pt reports she continues to feel better; denies any SI/HI or AVH. Pt reports she's been researching on her own and found a sober living house [facility] that's she's hopeful about. She agrees to get next INvega Sustenna. Discussed ammonia level which has returned to WNL. Mental Status Exam Mental Status Exam Narrative: Pt is alert and oriented; behavior is cooperative, pleasant, calm; patient is not in distress; dressed in casual attire, with good hygiene; mood is described as good and affect congruent, brighter, calm; Speech normal rate, prosody, volume; no latency or thought blocking observed; no psychomotor retardation present; thought process is goal directed, concrete; Thought content is on dealing getting into sober program; otherwise pertinent to relevant topics and without any delusional content, paranoid ideations or grandiosity; denies SI/HI; denies AH which remain resolved; not internally preoccupied; Patients insight and judgment are fair and adequate. Diagnostics Vital Signs (24Hr): Vital Signs - 24 hr 09/30/22 09:05 09/30/22 18:00 Temperature 97.3 F 97.2 F Pulse Rate 70 68 Respiratory Rate 16 16 Blood Pressure 101/55 L 97/51 L Pulse Oximetry 98 99 Oxygen Delivery Method Room Air Room Air BMI result Body Mass Index 25.0 Labs Results: 09/24/22 14:46 09/25/22 08:09 Labs: Laboratory Results - last 48 hr 10/01/22 10/01/22 07:34 07:34 Total Bilirubin < 0.2 Direct Bilirubin < 0.2 AST 14 ALT 11 Alkaline Phosphatase 48 Ammonia 49 Total Protein 6.5 Albumin 3.8 Medications Medications Current Medications Acetaminophen (Acetaminophen 325 Mg Tablet) 650 mg PO Q6H PRN PRN Reason: Headache/Pain Mild Scale (1-3) Al Hydroxide/Mg Hydroxide (Magnesium Hydrox/Alum Hydrox 30 Ml Oral.Susp) 30 ml PO Q6H PRN PRN Reason: Heartburn/Nausea Albuterol Sulfate (Albuterol Sulfate 90 Mcg 8 Gm Inhaler) 2 puff INHALE Q4H PRN PRN Reason: wheezing Divalproex Sodium (Divalproex Sodium Er 500 Mg Tab.Er.24h) 1,000 mg PO BEDTIME [facility] Last Admin: 09/30/22 19:49 Dose: 1,000 mg Ferrous Sulfate (Ferrous Sulfate 324 Mg Tablet.Dr) 324 mg PO DAILY [facility] Last Admin: 10/01/22 08:22 Dose: 324 mg Hydroxyzine HCl (Hydroxyzine Hcl 50 Mg Tablet) 50 mg PO BID PRN PRN Reason: anxiety Last Admin: 09/26/22 16:13 Dose: 50 mg Magnesium Hydroxide (Milk Of Magnesia 30 Ml Oral.Susp) 30 ml PO DAILY PRN PRN Reason: Constipation Multivitamins/Vitamin C (Multivitamin Tablet) 1 tab PO DAILY [facility] Last Admin: 10/01/22 08:22 Dose: 1 tab Nicotine (Nicotine 21 Mg Patch.Td24) 21 mg TRANSDERMA DAILY [facility] Last Admin: 10/01/22 08:21 Dose: 21 mg Omeprazole (Omeprazole 20 Mg Capsule.Dr) 20 mg PO DAILY@0630 [facility] Last Admin: 10/01/22 06:18 Dose: 20 mg Risperidone (Risperidone 2 Mg Tablet) 4 mg PO BEDTIME [facility] Last Admin: 09/30/22 19:50 Dose: 4 mg Thiamine HCl (Thiamine Hcl 100 Mg Tablet) 100 mg PO DAILY [facility] Last Admin: 10/01/22 08:22 Dose: 100 mg Trazodone HCl (Trazodone Hcl 50 Mg Tablet) 50 mg PO BEDTIME PRN PRN Reason: insomnia Last Admin: 09/23/22 21:05 Dose: 50 mg Allergies Allergies Allergy/AdvReac Type Severity Reaction Status Date / Time haloperidol [From HALDOL] Allergy Mild DROWSY Verified 09/23/22 14:07 quetiapine [From Seroquel] Allergy Hallucinati Verified 09/23/22 19:36 ons Assessment & Plan Assessment & Plan (1) Schizoaffective disorder: Status: Chronic Code(s): F25.9 - Schizoaffective disorder, unspecified (2) Chronic post-traumatic stress disorder (PTSD): Status: Acute Code(s): F43.12 - Post-traumatic stress disorder, chronic (3) Cocaine use disorder: Status: Acute Code(s): F14.10 - Cocaine abuse, uncomplicated Plan Patient is a 42-year-old female with history of schizoaffective disorder, cocaine abuse who presents for depression, psychotic symptoms and SI, in face of relapse with cocaine and being off medications. In the emergency room patient was agitated, crying, making verbal threats to staff and and did not needing to be restrained. On the unit, patient is more calm, though with depression and internal preoccupation. She reports that medications help and wants to get back on them. Currently continues with AH; intermittent SI but no plans or intent. 09/26 patient has improved some, mood is better, no SI, AH significantly reduced. Patient would like to get into a program though improving, her improvement remains fragile and she is at high risk for decompensating; patient is to remain on the unit for continued medication management and stability. Continue current treatment plan. 09/27 Improving; no depression or SI; no AH. Agrees to Invega Sustenna. Still distracted and a little disorganized. Wants a program. 09/28 slowly improving; no depression, SI or AVH; received Invega Sustenna today. Intermittently irritable if feeling ignored but overall appropriate with peers and staff thus far -ammonia remains mildly elevated but stable; will leave medications as is and recheck in a few days 09/29/2022: No changes to current regimen 09/30/2022: No changes to current regimen 10/01 improved; no SI/HI; eager to get into program; involved in treatement. Agrees to next invega. Ammonia level WNL Plan: CV Q 15 minute checks Ammonia now wNL received Invega Sustenna 234mg IM on 09/28 Invega Sustenna 156mg IM due on 10/05 (but can get earlier) DC Risperdal 2mg in AM Continue 4mg qhs for now Continue Depakote Er 1000mg daily Valproic acid level ordered; associated labs ordered Pt has been on Prazosin qhs in past for nightmares I spent minutes with the patient and/or on the patient floor today, greater than?50% of which was spent counseling/coordinating care. Patient educated on: diagnosis, medication risk/benefits and substance abuse Informed Consent: understands Reason for contiued inpatient stay Substantial Risk for: stable for discharge
[2022-10-01 09:32] VITALS: BP 112/64; PULSE 82; RESP 18; TEMP 36.2; O2SAT 100
[2022-10-01] MEDS: clonazePAM 0.5 MG TABLET PO (14:21)
[2022-10-01 18:00] VITALS: BP 110/68; PULSE 70; RESP 16; TEMP 37.1
[2022-10-01] MEDS: Divalproex Sodium ER 500 MG TAB.ER.24H 1000 MG PO (22:09)
[2022-10-01] MEDS: risperiDONE 2 MG TABLET 4 MG PO (22:09)
[2022-10-02] MEDS: Omeprazole 20 MG CAPSULE.DR PO (06:33)
[2022-10-02] MEDS: Multivitamin TABLET 1 TAB PO (08:12)
[2022-10-02] MEDS: Nicotine 21 MG PATCH.TD24 TRANSDERMA (08:12)
[2022-10-02] MEDS: Ferrous Sulfate 324 MG TABLET.DR PO (08:12)
[2022-10-02] MEDS: Thiamine HCL 100 MG TABLET PO (08:12)
[2022-10-02 09:19] VITALS: BP 88/63; PULSE 84; RESP 18; TEMP 36.6; O2SAT 97
--- NOTE | 2022-10-02 09:47 | P.PNPSI_ITS ---
Subjective Subjective Date of Service: 10/02/22 Reason For Visit: Schizoaffective Disorder Interim History: remains in good mood, no depression, no Si, no AVh. plans changed for her as program requires 30 days sobriety; pt found a different program with help of her sister. pt plans to stay at her sisters until bed available. Pt is optimistic about staying sober with help of program; feels [facility] will help as well. requests dc tomorrow. Mental Status Exam Mental Status Exam Narrative: Pt is alert and oriented; behavior is cooperative, pleasant, calm; patient is not in distress; dressed in casual attire, with good hygiene; mood is described as good and affect congruent, brighter, calm; Speech normal rate, prosody, volume; no latency or thought blocking observed; no psychomotor retardation present; thought process is goal directed, concrete; Thought content is on watson ling getting into sober program; otherwise pertinent to relevant topics and without any delusional content, paranoid ideations or grandiosity; denies SI/HI; denies AH which remain resolved; not internally preoccupied; Patients insight and judgment are fair and adequate. Diagnostics Vital Signs (24Hr): Vital Signs - 24 hr 10/01/22 18:00 10/02/22 09:19 Temperature 98.8 F 97.8 F Pulse Rate 70 84 Respiratory Rate 16 18 Blood Pressure 110/68 88/63 L Pulse Oximetry 97 Oxygen Delivery Method Room Air BMI result Body Mass Index 25.0 Labs Results: 09/24/22 14:46 09/25/22 08:09 Labs: Laboratory Results - last 48 hr 10/01/22 10/01/22 07:34 07:34 Total Bilirubin < 0.2 Direct Bilirubin < 0.2 AST 14 ALT 11 Alkaline Phosphatase 48 Ammonia 49 Total Protein 6.5 Albumin 3.8 Medications Medications Current Medications Acetaminophen (Acetaminophen 325 Mg Tablet) 650 mg PO Q6H PRN PRN Reason: Headache/Pain Mild Scale (1-3) Al Hydroxide/Mg Hydroxide (Magnesium Hydrox/Alum Hydrox 30 Ml Oral.Susp) 30 ml PO Q6H PRN PRN Reason: Heartburn/Nausea Albuterol Sulfate (Albuterol Sulfate 90 Mcg 8 Gm Inhaler) 2 puff INHALE Q4H PRN PRN Reason: wheezing Clonazepam (Clonazepam 0.5 Mg Tablet) 0.5 mg PO TID PRN PRN Reason: agitation/anxiety Divalproex Sodium (Divalproex Sodium Er 500 Mg Tab.Er.24h) 1,000 mg PO BEDTIME [facility] Last Admin: 10/01/22 22:09 Dose: 1,000 mg Ferrous Sulfate (Ferrous Sulfate 324 Mg Tablet.Dr) 324 mg PO DAILY [facility] Last Admin: 10/02/22 08:12 Dose: 324 mg Hydroxyzine HCl (Hydroxyzine Hcl 50 Mg Tablet) 50 mg PO BID PRN PRN Reason: anxiety Last Admin: 09/26/22 16:13 Dose: 50 mg Magnesium Hydroxide (Milk Of Magnesia 30 Ml Oral.Susp) 30 ml PO DAILY PRN PRN Reason: Constipation Multivitamins/Vitamin C (Multivitamin Tablet) 1 tab PO DAILY [facility] Last Admin: 10/02/22 08:12 Dose: 1 tab Nicotine (Nicotine 21 Mg Patch.Td24) 21 mg TRANSDERMA DAILY [facility] Last Admin: 10/02/22 08:12 Dose: 21 mg Omeprazole (Omeprazole 20 Mg Capsule.Dr) 20 mg PO DAILY@0630 [facility] Last Admin: 10/02/22 06:33 Dose: 20 mg Risperidone (Risperidone 2 Mg Tablet) 4 mg PO BEDTIME [facility] Last Admin: 10/01/22 22:09 Dose: 4 mg Risperidone (Risperidone 0.5 Mg Tablet) 0.5 mg PO TID PRN PRN Reason: agitation Thiamine HCl (Thiamine Hcl 100 Mg Tablet) 100 mg PO DAILY [facility] Last Admin: 10/02/22 08:12 Dose: 100 mg Trazodone HCl (Trazodone Hcl 50 Mg Tablet) 50 mg PO BEDTIME PRN PRN Reason: insomnia Last Admin: 09/23/22 21:05 Dose: 50 mg Allergies Allergies Allergy/AdvReac Type Severity Reaction Status Date / Time haloperidol [From HALDOL] Allergy Mild DROWSY Verified 09/23/22 14:07 quetiapine [From Seroquel] Allergy Hallucinati Verified 09/23/22 19:36 ons Assessment & Plan Assessment & Plan (1) Schizoaffective disorder: Status: Chronic Code(s): F25.9 - Schizoaffective disorder, unspecified (2) Chronic post-traumatic stress disorder (PTSD): Status: Acute Code(s): F43.12 - Post-traumatic stress disorder, chronic (3) Cocaine use disorder: Status: Acute Code(s): F14.10 - Cocaine abuse, uncomplicated Plan Patient is a 42-year-old female with history of schizoaffective disorder, cocaine abuse who presents for depression, psychotic symptoms and SI, in face of relapse with cocaine and being off medications. In the emergency room patient was agitated, crying, making verbal threats to staff and and did not needing to be restrained. On the unit, patient is more calm, though with depression and internal preoccupation. She reports that medications help and wants to get back on them. Currently continues with AH; intermittent SI but no plans or intent. 09/26 patient has improved some, mood is better, no SI, AH significantly reduced. Patient would like to get into a program though improving, her improv ement remains fragile and she is at high risk for decompensating; patient is to remain on the unit for continued medication management and stability. Continue current treatment plan. 09/27 Improving; no depression or SI; no AH. Agrees to Invega Sustenna. Still distracted and a little disorganized. Wants a program. 09/28 slowly improving; no depression, SI or AVH; received Invega Sustenna today. Intermittently irritable if feeling ignored but overall appropriate with peers and staff thus far -ammonia remains mildly elevated but stable; will leave medications as is and recheck in a few days 09/29/2022: No changes to current regimen 09/30/2022: No changes to current regimen 10/01 improved; no SI/HI; eager to get into program; involved in treatment. Agrees to next invega. Ammonia level WNL 10/02 remains stable; wants dc tomorrow to go to [facility] and then to program. no depression/si/avh. request for dc honored; will get invega shot tomorrow Plan: CV Q 15 minute checks Ammonia now wNL received Invega Sustenna 234mg IM on 09/28 Invega Sustenna 156mg IM due on 10/03 DC Risperdal 2mg in AM Continue 4mg qhs for now Continue Depakote Er 1000mg daily Valproic acid level ordered; associated labs ordered Pt has been on Prazosin qhs in past for nightmares I spent minutes with the patient and/or on the patient floor today, greater than?50% of which was spent counseling/coordinating care. Patient educated on: diagnosis, medication risk/benefits and substance abuse Informed Consent: understands Reason for contiued inpatient stay Substantial Risk for: stable for discharge
[2022-10-02] MEDS: risperiDONE 2 MG TABLET 4 MG PO (17:43)
[2022-10-02] MEDS: Divalproex Sodium ER 500 MG TAB.ER.24H 1000 MG PO (17:43)
[2022-10-03 07:45] VITALS: BP 116/58; PULSE 78; TEMP 36.3; O2SAT 99
[2022-10-03] MEDS: Omeprazole 20 MG CAPSULE.DR PO (08:28)
[2022-10-03] MEDS: Multivitamin TABLET 1 TAB PO (08:28)
[2022-10-03] MEDS: Thiamine HCL 100 MG TABLET PO (08:28)
[2022-10-03] MEDS: Nicotine 21 MG PATCH.TD24 TRANSDERMA (08:29)
[2022-10-03] MEDS: Ferrous Sulfate 324 MG TABLET.DR PO (08:29)
--- NOTE | 2022-10-03 08:31 | P.DS_ITS ---
DS: Providers Provider Date of Service: 10/03/22 Date of admission: 09/24/22 15:50 Date of discharge: 10/03/22 Primary care physician: Frank Physician Attending physician on admission: Charlie Johnson Attending physician on discharge: Charlie Johnson DS: Diagnosis Discharge Diagnosis (1) Schizoaffective disorder: Status: Chronic (2) Chronic post-traumatic stress disorder (PTSD): Status: Acute (3) Cocaine use disorder: Status: Acute DS: Medications Discharge Medications Home Medications: Home Medications Medication Instructions Recorded Confirmed divalproex 500 mg tablet,extended 2 tab PO BEDTIME 07/12/22 09/23/22 release 24 hr nicotine 21 mg/24 hr daily 1 patch topical DAILY 07/12/22 09/23/22 transdermal patch risperidone 2 mg tablet 2 mg PO QAM 07/12/22 09/23/22 risperidone 4 mg tablet 4 mg PO BEDTIME 07/12/22 09/23/22 trazodone 50 mg tablet 1 tab PO BEDTIME PRN insomnia 07/12/22 09/23/22 albuterol sulfate 90 mcg/actuation 1 - 2 puff inhalation Q4H PRN 09/23/22 09/23/22 aerosol inhaler (ProAir HFA) wheezing ferrous sulfate 325 mg (65 mg 1 tab PO DAILY 09/23/22 09/23/22 iron) tablet hydroxyzine pamoate 50 mg capsule 1 cap PO BID PRN anxiety 09/23/22 09/23/22 multivitamin with folic acid 400 1 tab PO DAILY 09/23/22 09/23/22 mcg tablet (Daily-Emiliano (with folic acid)) pantoprazole 40 mg tablet,delayed 1 tab PO DAILY 09/23/22 09/23/22 release thiamine HCl (vitamin B1) 100 mg 1 tab PO DAILY 09/23/22 09/23/22 tablet Mental Status Exam Mental Status Exam Narrative: Pt is alert and oriented; behavior is cooperative, pleasant, calm; patient is not in distress; dressed in casual attire, with good hygiene; mood is described as good and affect congruent, brighter, calm; Speech normal rate, prosody, volume; no latency or thought blocking observed; no psychomotor retardation present; thought process is goal directed, concrete; Thought content is on dealing getting into sober program; otherwise pertinent to relevant topics and without any delusional content, paranoid ideations or grandiosity; denies SI/HI; denies AH which remain resolved; not internally preoccupied; Patients insight and judgment are fair and adequate. Data Data Completed and Pending Completed studies during hospitalization [Text1]: 09/27/22 09/27/22 09/27/22 08:13 08:13 08:13 Total Bilirubin 0.2 Direct Bilirubin < 0.2 AST 12 ALT 8 Alkaline Phosphatase 39 Ammonia 58 H Total Protein 6.4 L Albumin 3.7 Valproic Acid 66.3 09/28/22 10/01/22 10/01/22 07:59 07:34 07:34 Total Bilirubin < 0.2 Direct Bilirubin < 0.2 AST 14 ALT 11 Alkaline Phosphatase 48 Ammonia 60 H 49 Total Protein 6.5 Albumin 3.8 Valproic Acid 09/24/22 00:00 Urine clean catch - Urine norris top Urine Culture - Final DS: Summary Hospital Course Hospital Course: HPI: Patient is a 42-year-old female with history of schizoaffective disorder, cocaine abuse who presents for depression, psychotic symptoms and SI, in face of relapse with cocaine and being off medications.? In the emergency room patient was agitated, crying, making verbal threats to staff and and did not needing to be restrained.? On the unit, patient is more calm, though with depression and internal preoccupation.? She reports that medications help and wants to get back on them.? Currently continues with AH; intermittent SI but no plans or intent. HOspital course: 09/26 patient has improved some, mood is better, no SI, AH significantly reduced.? Patient would like to get into a program; little irritable with staff but redirectable 09/27 Improving still; no depression or SI; no AH.? Agrees to [facility].? Still distracted and a little disorganized. Wants a program. 09/28 Continues to improve; no depression, SI or AVH; received [facility] today.? Still intermittently irritable if feeling ignored but overall appro priate with peers and staff thus far -ammonia remains mildly elevated but stable; will leave medications as is and recheck in a few days 09/29/2022: Patient stabilizing. Pt is appropriate with peers and staff, attending groups; continues to remain in good behavioral and impulse control with safe behaviors. Pt proactively working on getting herself into programs. 10/01 remains significanly improved; no SI/HI/AVH; eager to get into program; involved in treatment. Agrees to next [facility]. Ammonia level returned to normal. Plan is for pt to go to [facility] while [facility] SW discussed with sister who confirms. Pt remains in good behavioral control without depression/si/avh and requests discharge. While she remains vulnerable to relapse or decompensation, this is a chronic struggle for her of which she is well aware and one that will not resolve w/ longer stay on inpt unit. Pt is not in imminent risk for harm to self or others and request for dc honored. -show card writer discussed case with Dr. Shipman her oupt provider. Time spent discussing smoking cessation with patient: 3 to 10 minutes Status at Discharge Functional status at discharge: independent ambulation Overall status at discharge: patient is back to baseline Time Spent with Patient Time attestation: Total time spent providing and/or coordinating discharge services: Time spent: Less than 30 minutes Discharge Plan Discharge Anticipated Discharge Date/Time: 10/02/22 13:00 Patient Disposition: Home, Self-Care Discharge Diagnosis: Schizoaffective Disorder, bipolar type. Referrals: Physician,None [Primary Care Provider] - 1 Week Discharge Medications: New paliperidone palmitate 234 mg/1.5 mL syringe 234 mg IM Q30D 30 Days Qty: 1.5 1RF Rx Instructions: due 10/31/22 (may take up to 2 days sooner) Continued nicotine 21 mg/24 hr patch 24 hour 1 patch topical DAILY 28 Days Qty: 28 1RF albuterol sulfate [ProAir HFA] 90 mcg/actuation HFA aerosol inhaler 1 - 2 puff inhalation Q4H PRN (Reason: wheezing) 30 Days Qty: 6.7 1RF multivitamin with folic acid [Daily-Emiliano (with folic acid)] 400 mcg tablet 1 tab PO DAILY 30 Days Qty: 30 1RF Changed trazodone 50 mg tablet 50 mg PO BEDTIME PRN (Reason: insomnia) 30 Days Qty: 30 1RF thiamine HCl (vitamin B1) 100 mg tablet 100 mg PO DAILY 30 Days Qty: 30 1RF hydroxyzine pamoate 50 mg capsule 50 mg PO BID PRN (Reason: anxiety) 30 Days Qty: 60 1RF pantoprazole 40 mg tablet,delayed release (/EC) 40 mg PO DAILY 30 Days Qty: 30 0RF ferrous sulfate 325 mg (65 mg iron) tablet 325 mg PO DAILY 30 Days Qty: 30 0RF divalproex 500 mg tablet extended release 24 hr 1,000 mg PO BEDTIME 30 Days Qty: 60 1RF Discontinued risperidone 4 mg tablet 4 mg PO BEDTIME risperidone 2 mg Tablet 2 mg PO QAM Discharge Orders: Discharge Order (Routine); Ordered 10/03/22 Ordered By: Charlie Johnson Diet: Regular diet Activity on Discharge: As tolerated Stand Alone Forms: Patient Portal Discharge page, Community Support Care Plan Goals: Maintain mood and safe behaviors Take medications as prescribed Continue to pursue sobriety Practice coping skills Continue with outpatient providers and reach out to them as needed Health Concerns: Mood stability and behaviors Sobriety Plan of Treatment: Follow up with your Psychiatric provider and other outpatient providers regarding above concerns Take medications as prescribed Assessment: Risk assessment at time of discharge:? Patient was interviewed prior to discharge and found to be fully oriented and without any SI or HI. Patient has insight and demonstrates good judgment in terms of wanting to pursue treatment. Patient is not in imminent risk of harm to self or others and has a safety plan that includes presenting to the closest ER or calling 911 if feeling unsafe.? Patient has been observed closely by nursing and unit staff throughout admission; patient has not engaged in any behaviors that suggest dangerousness to self or others and has demonstrated appropriate behaviors and impulse control
[2022-10-03] MEDS: Paliperidone Palmitate 156 MG/ML SYRINGE IM (09:52)
[2022-10-03] MEDS: Naloxone HCl Nasal TAKE HOME 4 MG SPRAY NOSTRILALT (09:52)
== END 2022-10-03 13:21 | disposition home or self-care (01) | DRG 750 ==
LOC: HO.ED 09-24 12:24 → HO.PM5 09-24 15:58
PROVIDERS: Emergency Medicine Emergency Medical Services; Admitting Provider Clinical Nurse Specialist Psychiatric/Mental Health, Adult; Emergency Provider Student in an Organized Health Care Education/Training Program; Visit Provider Psychiatry & Neurology Psychiatry
DX: F25.0 Schizoaffective disorder, bipolar type (principal); R45.851 Suicidal ideations; F12.20 Cannabis dependence, uncomplicated; F43.12 Post-traumatic stress disorder, chronic; F14.20 Cocaine dependence, uncomplicated; F17.210 Nicotine dependence, cigarettes, uncomplicated; Z20.822 Contact with and (suspected) exposure to COVID-19; Z71.6 Tobacco abuse counseling; Z88.8 Allergy status to other drugs, medicaments and biological substances; Z79.899 Other long term (current) drug therapy
CPT/HCPCS: 36415; 80048; 80053; 80061; 80076; 80164; 80307; 81001; 81025; 82077; 82140; 82607; 82746; 83036; 83735; 84439; 84443; 85025; 87086; 87635; 93005; 99285; J1200; J2250; J2426

== ENCOUNTER 2023-01-14 06:53 | Inpatient (IN) | payer MEDICARE, MEDICAID, SELFPAY ==
[2023-01-14 07:00] VITALS: BP 133/95; PULSE 97; RESP 20; TEMP 36.1; O2SAT 97; BMI 21.9
--- NOTE | 2023-01-14 07:47 | ED.PSYCH ---
HPI - Psych General Chief Complaint: Psychiatric Symptoms Stated Complaint: SI Time Seen by Provider: 01/14/23 07:44 Source: patient Mode of arrival: ambulatory Limitations: no limitations History of Present Illness HPI Narrative: 42-year-old female came in for evaluation depression and SI. Patient is seen today for evaluation depression and SI with plan to jump off the bridge, patient also has auditory and visual hallucination voices that telling her to hurt herself. Patient declined using any drugs or under alcohol intoxication. Patient had a removal suicidal attempt by overdose about 10 years ago. Related Data Previous Rx's Medication Instructions Recorded albuterol sulfate 90 mcg/actuation 1 - 2 puff inhalation Q4H PRN 10/03/22 aerosol inhaler (ProAir HFA) wheezing 30 days #6.7 grams divalproex 500 mg tablet,extended 1,000 mg PO BEDTIME 30 days #60 10/03/22 release 24 hr tabs ferrous sulfate 325 mg (65 mg 325 mg PO DAILY 30 days #30 tabs 10/03/22 iron) tablet hydroxyzine pamoate 50 mg capsule 50 mg PO BID PRN anxiety 30 days 10/03/22 #60 caps multivitamin with folic acid 400 1 tab PO DAILY 30 days #30 tabs 10/03/22 mcg tablet (Daily-Emiliano (with folic acid)) nicotine 21 mg/24 hr daily 1 patch topical DAILY 28 days #28 10/03/22 transdermal patch ea paliperidone palmitate 234 mg/1.5 234 mg (1.5 mL) IM Q30D 30 days 10/03/22 mL intramuscular syringe #1.5 mL pantoprazole 40 mg tablet,delayed 40 mg PO DAILY 30 days #30 tabs 10/03/22 release thiamine HCl (vitamin B1) 100 mg 100 mg PO DAILY 30 days #30 tabs 10/03/22 tablet trazodone 50 mg tablet 50 mg PO BEDTIME PRN insomnia 30 10/03/22 days #30 tabs Allergies Allergy/AdvReac Type Severity Reaction Status Date / Time haloperidol [From HALDOL] Allergy Mild DROWSY Verified 09/23/22 14:07 quetiapine [From Seroquel] Allergy Hallucinati Verified 09/23/22 19:36 ons Review of Systems Review of Systems: All other systems are reviewed and are negative Constitutional: Reports as per HPI and Reports no additional constitutional complaints Eyes: Reports as per HPI and Reports no additional eye complaints Reports system reviewed and no additional complaints, except as documented Cardiovascular: Reports as per HPI and Reports no additional cardiovascular complaints Respiratory: Reports as per HPI and Reports no additional respiratory complaints Gastrointestinal: Reports as per HPI and Reports no additional gastrointestinal complaints Genitourinary: Reports no additional female genitourinary complaints Musculoskeletal: Reports no additional musculoskeletal complaints Skin/Breast: Reports system reviewed and no additional complaints, except as docu Psychiatric: Reports no additional psychiatric complaints Endocrine: Reports no additional endocrine complaints Hematologic/Lymphatic: Reports no additional hematologic/lymphatic complaints Allergic/Immunologic: Reports no additional allergic/immunologic complaints Reports system reviewed and no additional complaints, except as documented and Reports Abnormal speech present [facility] Past Medical History Medical History Cannabis use disorder, moderate, dependence Chronic post-traumatic stress disorder (PTSD) Cocaine use disorder Schizoaffective disorder Social History Social History Household Members: None Household Members Other:: lives with sister Housing: Homeless Do you presently have visiting nurse or other home services: No Alcohol intake: never Patient Tobacco Use Status: Current everyday Tobacco user Tobacco use type: Cigarette Cigarette Packs Per Day: 0.5 Cigarettes Per Day: 10.0 Years Smoked: 5 Smoked in Last 30 Days: No e-Cigarette/Vaping Use: Former Use Second Hand Smoke Exposure: Yes Use of substances other than those prescribed or required for medical reasons: Yes Substance Use Type: Crack/Cocaine Substance Use Frequency: Occasionally Last Used Substance: Days (ago) Any prior treatment program specific to substance use: No Advance Directives: No service: No Sexual orientation: Straight/Heterosexual Physical Exam Vital Signs: Vital Signs: Last Vital Signs Temp 97.0 F 01/14/23 07:00 Pulse 52 01/14/23 11:09 Resp 15 01/14/23 11:09 BP 101/66 01/14/23 11:18 Pulse Ox 97 01/14/23 11:09 O2 Del Method 01/14/23 10:15 BMI result Body Mass Index 21.9 Vital signs have been reviewed as appeared to be correct. Blood pressure normal. Heart rate normal. Respiration rate normal. Temperature normal. Oxygen saturation normal. Appearance: Alert. Oriented X3. No acute distress. Head: Normal external exam. Normocephalic. Atraumatic. No Contreras signs noted. No raccoon eyes noted Eyes: PERRLA. EOMI. Conjunctiva and sclera normal. Eyelids normal. ENT: TM's Normal. Pharynx normal. Uvula midline. Moist mucous membranes. No trismus noted. No drooling noted. No muffled voice noted. Neck: Normal inspection. Neck supple. FROM. No adenopathy. Thyroid Normal. No meningeal signs. No neck mass noted. CVS: Normal heart rate and rhythm. Heart sound normal. No murmurs noted. Pulses normal throughout. Respiratory: No respiratory distress. Painless inspiration. Breath sounds normal. No wheezes/rales/rhonchi noted. Chest nontender. No accessory muscle usage noted or decreased air movement noted. Abdomen: Soft and nontender. Bowel sounds normal in all 4 quadrants. No distention noted. No organomegaly noted. No visible injury noted. Back: No CVA tenderness. Full range of motion noted. Skin: Skin warm and dry. Normal skin color. Normal skin turgor. No rashes/lesions/lacerations noted. Extremities: No lower extremity edema. Extremities exhibit normal range of motion. Extremities nontender. Neuro: Oriented X 3. Cranial nerve exam: II-XII are grossly intact No motor deficit. No sensory deficit. Reflexes normal. Patient Orientation: Person, Place, Time and Situation, okay hygiene and grooming. Fair eye contact, attentive, no tics or tremors. Level of Consciousness: Awake, Appropriate and Alert Patient Behavior: Appropriate, Guarded, Cooperative and Anxious Mood Description: Constricted, Blunted and Apprehensive Affect Description: Constricted, Blunted and Apprehensive Patient Cognition Impaired: No Ability to Follow Directions: Excellent Speech Pattern: Clear, Appropriate and Spontaneous Speech, nonpressured, spontaneous with regular rate and rhythm, normal volume and prosody. No dysarthria. Memory Description: Intact, Immediate Intact and Short Term Intact Hallucinations: None Delusions: Not Present Thought Process: Intact Thought Content: positive for Intact, positive for Logical, Suicidal Ideation by jumping off the bridge, denies Homicidal Ideation. Depressive Symptoms: Not present. Judgement and Insight: Limited but adequate. Course Course Course Narrative: 42-year-old female acting psychotic with history of mental illness, had systolic blood pressure of 87 that improved spontaneously after patient ate breakfast patient mobilizes well in the emergency department. Medications Administered Discontinued Medications Generic Name Dose Route Start Last Admin Trade Name Vern PRN Reason Stop Dose Admin Acetaminophen 650 mg 01/14/23 08:47 01/14/23 08:48 Acetaminophen 325 Mg Tablet PO 01/14/23 08:48 650 mg ONCE ONE Administration Haloperidol 5 mg 01/14/23 08:44 01/14/23 08:49 Haloperidol 5 Mg Tablet PO 01/14/23 08:45 5 mg ONCE ONE Administration Lorazepam 1 mg 01/14/23 07:46 01/14/23 08:24 Lorazepam 1 Mg Tablet PO 01/14/23 07:47 1 mg ONCE ONE Administration Lorazepam 2 mg 01/14/23 08:44 01/14/23 08:48 Lorazepam 1 Mg Tablet PO 01/14/23 08:45 2 mg ONCE ONE Administration Medical Decision Making Differential Diagnosis Differential Diagnoses: The differential diagnosis associated with the presentation includes (Depression, psychosis, substance abuse, overdose return) Lab Data 01/14/23 10:12 01/14/23 10:12 Labs: Lab Results 01/14/23 01/14/23 01/14/23 Range/Units 10:07 10:12 10:12 WBC 5.4 (4.8-10.8) X10*3/uL RBC 4.30 (4.20-5.50) X10*6/uL Hgb 11.4 L (12.0-16.0) g/dl Hct 35.4 L (37.0-47.0) % MCV 82.3 (80.0-98.0) fL MCH 26.5 L (27.0-33.0) pg MCHC 32.2 (31.0-35.0) g/dl RDW 15.7 (11.0-16.0) % Plt Count 321 (160-400) X10*3/uL MPV 9.8 (9.4-12.3) fL Immature Gran % (Auto) 0.2 (0.0-0.4) % Neut % (Auto) 45.3 (45-73) % Lymph % (Auto) 39.0 (20-40) % [place] % (Auto) 10.1 (2-11) % Eos % (Auto) 4.8 H (0-4) % Baso % (Auto) 0.6 (0-2) % Lymph # (Auto) 2.1 (1.2-4.9) X10*3/uL [place] # (Auto) 0.6 (0.1-1.2) X10*3/uL Eos # (Auto) 0.3 (0.0-0.4) X10*3/uL Baso # (Auto) 0.0 (0.0-0.2) X10*3/uL Abs Immat Gran (auto) 0.01 (0.00-0.03) X10*3/uL Absolute Neuts (auto) 2.5 (2.0-8.3) x10*3/uL Absolute Nucleated RBC 0.000 (0.0-0.012) X10*3/uL Nucleated RBC % (auto) 0.0 (0.0-0.2) /100WBC Sodium 142 (135-145) mmol/L Potassium 4.6 (3.3-5.1) mmol/L Chloride 108 (96-108) mmol/L Carbon Dioxide 27 (22-29) mmol/L Anion Gap 12 (12-20) BUN 9 (9-16) mg/dL Creatinine 0.87 (0.5-1.4) mg/dL Estim Creat Clear Calc 67.2 Estimated GFR > 60 Random Glucose 76 (60-115) mg/dL Calcium 9.0 (8.4-10.2) mg/dL Total Bilirubin 0.6 (0.0-1.0) mg/dL Direct Bilirubin < 0.2 (0.0-0.5) mg/dL AST 16 (5-31) U/L ALT 11 (0-31) U/L Alkaline Phosphatase 43 (39-117) U/L Total Protein 6.5 (6.5-8.0) g/dL Albumin 3.9 (3.5-5.0) g/dL Lipase 35 (8-78) U/L COVID-19 (VAISHNAVI) Negative (Negative) COVID-19 Clin Com See Note Discharge Plan Discharge Clinical Impression: Chronic post-traumatic stress disorder (PTSD), Schizoaffective disorder, Suicidal ideation Patient Disposition: Still a Patient Prescriptions: No Action paliperidone palmitate 234 mg/1.5 mL syringe 234 mg IM Q30D 30 Days Qty: 1.5 1RF Rx Instructions: due 10/31/22 (may take up to 2 days sooner) trazodone 50 mg tablet 50 mg PO BEDTIME PRN (Reason: insomnia) 30 Days Qty: 30 1RF thiamine HCl (vitamin B1) 100 mg tablet 100 mg PO DAILY 30 Days Qty: 30 1RF hydroxyzine pamoate 50 mg capsule 50 mg PO BID PRN (Reason: anxiety) 30 Days Qty: 60 1RF pantoprazole 40 mg tablet,delayed release (DR/EC) 40 mg PO DAILY 30 Days Qty: 30 0RF ferrous sulfate 325 mg (65 mg iron) tablet 325 mg PO DAILY 30 Days Qty: 30 0RF divalproex 500 mg tablet extended release 24 hr 1,000 mg PO BEDTIME 30 Days Qty: 60 1RF nicotine 21 mg/24 hr patch 24 hour 1 patch topical DAILY 28 Days Qty: 28 1RF albuterol sulfate [ProAir HFA] 90 mcg/actuation HFA aerosol inhaler 1 - 2 puff inhalation Q4H PRN (Reason: wheezing) 30 Days Qty: 6.7 1RF multivitamin with folic acid [Daily-Emiliano (with folic acid)] 400 mcg tablet 1 tab PO DAILY 30 Days Qty: 30 1RF Interventions: Bradford-Suicide Risk Severity Scale Last Done: 01/14/23 10:24
--- NOTE | 2023-01-14 07:52 | ECG_ITS ---
Test Reason : MEDICAL CLEARANCE Blood Pressure : / mmHG Vent. Rate : 062 BPM Atrial Rate : 062 BPM P-R Int : 134 ms QRS Dur : 084 ms QT Int : 422 ms P-R-T Axes : 021 088 044 degrees QTc Int : 428 ms Normal sinus rhythm Normal ECG When compared with ECG of 24-SEP-2022 14:27, Nonspecific T wave abnormality, improved in Anterior leads Referred By: Kash Hernandez Electronically Signed By:MATHEUS FLAHERTY
[2023-01-14] MEDS: LORazepam 1 MG TABLET PO (08:24)
--- NOTE | 2023-01-14 08:35 | MHC.EDTECH ---
this pct went in and attempted to draw labs on patient and patient is having a psychiatric outburst and thrusting around on stretcher at one point even flipping mattress over on top of her. unable to collect labs and unable to do an EKG due to increased psychiatric behaviors.
--- NOTE | 2023-01-14 08:35 | PC.NURSE ---
pt intermittently calm and then screaming, threw her mattress on the ground and then lay underneath it, ativan given as ordered, pt hen stood up, grabbed a chair and screamed at the sitter, pt did not throw the chair but threatened to, chairs and trash bins removed from the room, informed and medicine suggested, awaiting orders
[2023-01-14] MEDS: LORazepam 1 MG TABLET 2 MG PO (08:48)
[2023-01-14] MEDS: Acetaminophen 325 MG TABLET 650 MG PO (08:48)
[2023-01-14] MEDS: HaloperidoL 5 MG TABLET PO (08:49)
--- NOTE | 2023-01-14 09:35 | PC.NURSE ---
pt ate her breakfast and now sleeping w nad, resp even and unlabored, skin wpd, sitter at bedside
[2023-01-14 10:15] VITALS: BP 82/50; PULSE 75; RESP 15; O2SAT 98
[2023-01-14 10:19] LABS: MANUAL DIFF FLAG NO
[2023-01-14 10:21] LABS: Basophils Percent Auto 0.6 % (0-2); Eosinophils Absolute Auto 0.3 X10*3/uL (0.0-0.4); Eosinophils Percent Auto 4.8 % (0-4); Hematocrit 35.4 % (37.0-47.0); Hemoglobin 11.4 g/dl (12.0-16.0); Imm Gran Abs Auto 0.01 X10*3/uL (0.00-0.03); Imm Gran Pct Auto 0.2 % (0.0-0.4); Lymphocytes Absolute Auto 2.1 X10*3/uL (1.2-4.9); Mean Corpuscular HGB Conc 32.2 g/dl (31.0-35.0); Mean Corpuscular Hemoglobin 26.5 pg (27.0-33.0); Mean Corpuscular Volume 82.3 fL (80.0-98.0); Mean Platelet Volume 9.8 fL (9.4-12.3); Monocytes Absolute Auto 0.6 X10*3/uL (0.1-1.2); Monocytes Percent Auto 10.1 % (2-11); Neutrophils Absolute Auto 2.5 x10*3/uL (2.0-8.3); Neutrophils Percent Auto 45.3 % (45-73); Platelet Count 321 X10*3/uL (160-400); Red Cell Distribution Width 15.7 % (11.0-16.0); White Blood Count 5.4 X10*3/uL (4.8-10.8)
[2023-01-14 10:24] VITALS: BP 88/49; PULSE 79
--- NOTE | 2023-01-14 10:26 | PC.NURSE ---
reports hearing voices for 5 years, reports feeling calm now, si thoughts, denies hi, I'd jump off a bridge , denies hurting herself, denies drug and alcohol use
[2023-01-14 10:35] LABS: COVID-19 Test Negative (Negative); IDNOW Serial# BCCEAD1C
[2023-01-14 10:36] LABS: Alanine Aminotransferase 11 U/L (0-31); Albumin Level 3.9 g/dL (3.5-5.0); Alkaline Phosphatase 43 U/L (39-117); Anion Gap 12 (12-20); Aspartate Amino Transferase 16 U/L (5-31); Bilirubin Direct < 0.2 mg/dL (0.0-0.5); Bilirubin Total 0.6 mg/dL (0.0-1.0); Blood Urea Nitrogen 9 mg/dL (9-16); Carbon Dioxide 27 mmol/L (22-29); Chloride 108 mmol/L (96-108); Creatinine Clr Calc Pharmacy 67.2; Estimated Glomerular Filt Rate > 60; Glucose Random 76 mg/dL (60-115); Lipase 35 U/L (8-78); Potassium 4.6 mmol/L (3.3-5.1); Sodium 142 mmol/L (135-145); Total Protein 6.5 g/dL (6.5-8.0)
--- NOTE | 2023-01-14 10:37 | PC.NURSE ---
pt calm and cooperative, md informed of vs, alert, speech clear, eating a sandwich and juice w crackers, sitter at bedside
[2023-01-14 11:09] VITALS: BP 96/54; PULSE 52; RESP 15; O2SAT 97
[2023-01-14 11:18] VITALS: BP 101/66
[2023-01-14 11:38] LABS: Appearance Urine Clear; Color Urine Yellow; Glucose Urine UA Negative (Negative); Leukocyte Esterase Urine Negative (Negative); Nitrite Urine Negative (Negative); PH 7.5 (5.0-9.0); Specific Gravity - Urine 1.025 (1.005-1.025); Urine Blood Negative (Negative); Urine Ketones Trace mg/dL (Negative); Urine Protein Trace mg/dL (Neg-Trace)
[2023-01-14 11:42] LABS: UPreg QC Valid YES; Urine Pregnancy NEGATIVE (NEGATIVE)
[2023-01-14 11:46] LABS: Amphetamine Screen Urine Not Detected (Not Detect); Barbiturates, Urine Not Detected (Not Detect); Benzodiazepines Screen Urine Not Detected (Not Detect); Cannabinoid Screen Urine POSITIVE (Not Detect); Cocaine Screen Urine POSITIVE (Not Detect); Fentanyl, urine Not Detected (Not Detect); Opiate Screen Urine Not Detected (Not Detect); Phencyclidine Screen Urine Not Detected (Not Detect)
--- NOTE | 2023-01-14 11:47 | PC.NURSE ---
Patient ambulatory with steady independent gait behavior appropriate will CTM
--- NOTE | 2023-01-14 11:57 | PC.NURSE ---
Patient sleeping want door closed no needs at this time. No agitation noted will CTM
--- NOTE | 2023-01-14 15:18 | PC.NURSE ---
Patient sleeping no distress noted will CTM
[2023-01-15 04:35] VITALS: BP 90/64; PULSE 95; RESP 15; TEMP 36.5; O2SAT 96
--- NOTE | 2023-01-15 05:40 | PC.NURSE ---
Patient slept through the night, no distress observed/reported, behavior non concerning during 7p-7a shift, patient's M3 admission derailed due to staffing challenges, med rec completed/pending approval due to medication changes, VSS, will continue to monitor.
--- NOTE | 2023-01-15 09:06 | PC.NURSE ---
patient alert, cooperative with staff. ambulating with strong steady gait. will CTM
[2023-01-15] MEDS: risperiDONE 1 MG TABLET PO ×2 (11:00→11:03)
[2023-01-15] MEDS: LORazepam 1 MG TABLET PO (11:00)
[2023-01-15] MEDS: Baclofen 10 MG TABLET PO ×3 (11:00→20:41)
[2023-01-15] MEDS: Thiamine HCL 100 MG TABLET PO (11:00)
[2023-01-15] MEDS: Nicotine 21 MG PATCH.TD24 TRANSDERMA (11:00)
[2023-01-15] MEDS: Naltrexone HCl 50 MG TABLET PO (11:01)
[2023-01-15] MEDS: Multivitamin TABLET 1 TAB PO (11:01)
--- NOTE | 2023-01-15 11:15 | PC.ADMIT ---
Nursing admission note: 42 year old female DX: Schizoaffective Disorder, BiPolar Type, Cocaine use disorder, Cannabis use disorder. Patient referred for treatment by CARE team. Patient self presented with her sister requesting treatment. Signed Conditional Voluntary for admission. Patient easily engaged, cooperative with admission process however irritable and somewhat impatient. Patient is A+O x4, dressed in hospital attire, good eye contact, constricted affect. Fair attn to ADL. Reports depression with + SI, no reported plan at this time. Believes she is able to maintain safety on the unit and will approach staff if feeling unsafe. Patient has had multiple hospitalizations, with previous suicide attempts. Reports AH, tell her all kinds of things like I'm stupid, ugly, dumb, all kinds of stuff . Endorses periods of VH although denies at this time. Upon arrival to ED patient was combative, verbally and physically aggressive, requiring chemical restraint. Patients mood is labile. Speech is clear, normal rate and tone. Thoughts were clear and organized during admission process. Patient denies sleep or appetite disturbances, unsure if she has had recent weight loss due to decreased eating. Patient reports trauma history. Currently on probation, history of arrests and incarcerations. No acute medical problems reported. Allergy to Haldol and Seroquel. TOX screen positive for cocaine and cannabis. COVID negative. Placed on unit safety checks. See nursing assessment/crisis eval for complete details.
[2023-01-15] MEDS: hydrOXYzine HCL 50 MG TABLET PO (12:10)
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
[2023-01-15 18:00] VITALS: BP 104/59; PULSE 66; RESP 18; TEMP 36.6; O2SAT 98
[2023-01-15] MEDS: Divalproex Sodium ER 500 MG TAB.ER.24H 1000 MG PO (20:40)
[2023-01-15] MEDS: risperiDONE 2 MG TABLET PO (20:41)
[2023-01-15] MEDS: busPIRone HCl 10 MG TABLET 20 MG PO (20:41)
[2023-01-15 20:47] LABS: Ammonia 37 umol/L (13-55)
[2023-01-15 21:01] LABS: Cholesterol 150 mg/dL; HDL Cholesterol 49 mg/dL; LDL Cholesterol Calculated 85 mg/dl; Triglycerides 83 mg/dL; Valproate < 12.5 mcg/mL (50.0-100.0)
[2023-01-15 21:30] LABS: Folate 12.9 ng/mL (> or = 4.0); TSH reflex Free T4 0.72 uIU/mL (0.32-4.0); Vitamin B12 638 pg/mL (200-900)
[2023-01-16 08:47] LABS: Estimated Average Glucose 108 mg/dL; Hemoglobin A1c % 5.4 %
[2023-01-16 08:52] VITALS: BP 97/54; PULSE 62; RESP 16; TEMP 36.1; O2SAT 99
[2023-01-16] MEDS: Multivitamin TABLET 1 TAB PO (08:54)
[2023-01-16] MEDS: risperiDONE 1 MG TABLET PO (08:55)
[2023-01-16] MEDS: Baclofen 10 MG TABLET PO ×3 (08:55→20:40)
[2023-01-16] MEDS: Ferrous Sulfate 324 MG TABLET.DR PO (08:55)
[2023-01-16] MEDS: Thiamine HCL 100 MG TABLET PO (08:55)
[2023-01-16] MEDS: Nicotine 21 MG PATCH.TD24 TRANSDERMA (08:56)
[2023-01-16] MEDS: Omeprazole 20 MG CAPSULE.DR PO (08:56)
[2023-01-16] MEDS: Naltrexone HCl 50 MG TABLET PO (08:56)
[2023-01-16] MEDS: Magnesium Hydrox/Alum Hydrox 30 ML ORAL.SUSP PO (09:01)
[2023-01-16] MEDS: hydrOXYzine HCL 50 MG TABLET PO (09:55)
[2023-01-16] MEDS: risperiDONE 0.5 MG TABLET PO (15:05)
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
[2023-01-16 20:05] VITALS: BP 101/62; PULSE 75; RESP 18; TEMP 36.4; O2SAT 97
[2023-01-16] MEDS: Divalproex Sodium ER 500 MG TAB.ER.24H 1000 MG PO (20:40)
[2023-01-16] MEDS: risperiDONE 2 MG TABLET PO (20:40)
[2023-01-16] MEDS: busPIRone HCl 10 MG TABLET 20 MG PO (20:40)
[2023-01-17 07:00] VITALS: BMI 24.3
[2023-01-17 08:10] VITALS: BP 110/69; PULSE 74; RESP 18; TEMP 36.2; O2SAT 95
[2023-01-17] MEDS: Nicotine 21 MG PATCH.TD24 TRANSDERMA (08:12)
[2023-01-17] MEDS: Thiamine HCL 100 MG TABLET PO (08:13)
[2023-01-17] MEDS: risperiDONE 1 MG TABLET PO (08:13)
[2023-01-17] MEDS: Multivitamin TABLET 1 TAB PO (08:13)
[2023-01-17] MEDS: Ferrous Sulfate 324 MG TABLET.DR PO (08:13)
[2023-01-17] MEDS: Baclofen 10 MG TABLET PO ×3 (08:13→22:24)
[2023-01-17] MEDS: Omeprazole 20 MG CAPSULE.DR PO (08:13)
[2023-01-17] MEDS: Naltrexone HCl 50 MG TABLET PO (08:13)
[2023-01-17] MEDS: risperiDONE 0.5 MG TABLET PO (12:42)
--- NOTE | 2023-01-17 14:54 | P.PNPSI_ITS ---
Subjective Subjective Date of Service: 01/17/23 Reason For Visit: psychosis Interim History: wearing wig today, out and about on the unit. loud, accusatory, paranoid, abrasive, labile. accuses SW of staring at her in a strange way, asking repeatedly and aggressively, are you retarded? discuss her VPA dosing, that she had negligible level at admission and has only been on it again for 2 nights. she seems uninterested in the medication's mgmt and states she is here to get into a CSS. no other notable requests or behaviors. per staff, refused 1:1 check-in yesterday. appears to be RIS. loling. some yelling out. not attending groups. Mental Status Exam Mental Status Exam Narrative: Appearance: thin, wearing hospital gown, poor hygiene, in NAD Behavior: calm, cooperative to labile, aggressive, angry Psychomotor: some yelling and increase muscle tension Speech: clear, normal rate/rhythm/volume, spontaneous TP: linear TC: paranoid, delusional, wanting help with CSS Mood: not assessed Affect: constricted, hyper-intense, labile SI: none expressed HI: none expressed AH/VH: none expressed Delusions: that SW is staring at her in a menacing/aggressive way Insight/judgment: impaired Memory/cog: alert, oriented x 3. Grossly intact to conversational testing. Diagnostics Vital Signs (24Hr): Vital Signs - 24 hr 01/16/23 20:05 01/17/23 08:10 Temperature 97.6 F 97.2 F Pulse Rate 75 74 Respiratory Rate 18 18 Blood Pressure 101/62 110/69 Pulse Oximetry 97 95 Oxygen Delivery Method Room Air Room Air BMI result Body Mass Index 24.3 Labs 01/14/23 10:12 01/14/23 10:12 Labs: Laboratory Results - last 48 hr 01/15/23 01/15/23 01/15/23 20:14 20:14 20:14 Estimat Average Glucose 108 Hemoglobin A1c % 5.4 Ammonia 37 Triglycerides 83 Cholesterol 150 LDL Cholesterol, Calc 85 HDL Cholesterol 49 Vitamin B12 638 Folate 12.9 TSH 0.72 Valproic Acid 01/15/23 20:14 Estimat Average Glucose Hemoglobin A1c % [place]monia Triglycerides Cholesterol LDL Cholesterol, Calc HDL Cholesterol Vitamin B12 Folate TSH Valproic Acid < 12.5 L Medications Medications Current Medications Acetaminophen (Acetaminophen 325 Mg Tablet) 650 mg PO Q6H PRN PRN Reason: Headache/Pain Mild Scale (1-3) Al Hydroxide/Mg Hydroxide (Magnesium Hydrox/Alum Hydrox 30 Ml Oral.Susp) 30 ml PO Q6H PRN PRN Reason: Heartburn/Nausea Last Admin: 01/16/23 09:01 Dose: 30 ml Albuterol Sulfate (Albuterol Sulfate 90 Mcg 8 Gm Inhaler) 1 - 2 puff INHALE Q4H PRN PRN Reason: wheezing Baclofen (Baclofen 10 Mg Tablet) 10 mg PO TID [facility] Last Admin: 01/17/23 14:48 Dose: 10 mg Buspirone HCl (Buspirone Hcl 10 Mg Tablet) 20 mg PO BEDTIME [facility] Last Admin: 01/16/23 20:40 Dose: 20 mg Divalproex Sodium (Divalproex Sodium Er 500 Mg Tab.Er.24h) 1,000 mg PO BEDTIME [facility] Last Admin: 01/16/23 20:40 Dose: 1,000 mg Ferrous Sulfate (Ferrous Sulfate 324 Mg Tablet.) 324 mg PO DAILY [facility] Last Admin: 01/17/23 08:13 Dose: 324 mg Hydroxyzine HCl (Hydroxyzine Hcl 50 Mg Tablet) 50 mg PO BID PRN PRN Reason: Anxiety Last Admin: 01/16/23 09:55 Dose: 50 mg Magnesium Hydroxide (Milk Of Magnesia 30 Ml Oral.Susp) 30 ml PO DAILY PRN PRN Reason: Constipation Multivitamins/Vitamin C (Multivitamin Tablet) 1 tab PO DAILY [facility] Last Admin: 01/17/23 08:13 Dose: 1 tab Naltrexone HCl (Naltrexone Hcl 50 Mg Tablet) 50 mg PO DAILY [facility] Last Admin: 01/17/23 08:13 Dose: 50 mg Nicotine (Nicotine 21 Mg Patch.Td24) 21 mg TRANSDERMA DAILY [facility] Last Admin: 01/17/23 08:12 Dose: 21 mg Omeprazole (Omeprazole 20 Mg Capsule.) 20 mg PO DAILY@0630 [facility] Last Admin: 01/17/23 08:13 Dose: 20 mg Risperidone (Risperidone 1 Mg Tablet) 1 mg PO DAILY [facility] Last Admin: 01/17/23 08:13 Dose: 1 mg Risperidone (Risperidone 2 Mg Tablet) 2 mg PO BEDTIME [facility] Last Admin: 01/16/23 20:40 Dose: 2 mg Risperidone (Risperidone 0.5 Mg Tablet) 0.5 mg PO Q4H PRN PRN Reason: AH Last Admin: 01/17/23 12:42 Dose: 0.5 mg Thiamine HCl (Thiamine Hcl 100 Mg Tablet) 100 mg PO DAILY [facility] Last Admin: 01/17/23 08:13 Dose: 100 mg Trazodone HCl (Trazodone Hcl 50 Mg Tablet) 50 mg PO BEDTIME PRN PRN Reason: insomnia Trazodone HCl (Trazodone Hcl 50 Mg Tablet) 50 mg PO BEDTIME MRX1 PRN PRN Reason: Insomnia Allergies Allergies Allergy/AdvReac Type Severity Reaction Status Date / Time haloperidol [From HALDOL] Allergy Mild DROWSY Verified 09/23/22 14:07 quetiapine [From Seroquel] Allergy Hallucinati Verified 09/23/22 19:36 ons Assessment & Plan Assessment & Plan (1) Cocaine use disorder: Status: Acute Code(s): F14.10 - Cocaine abuse, uncomplicated (2) Suicidal ideation: Status: Acute Code(s): R45.851 - Suicidal ideations (3) Chronic post-traumatic stress disorder (PTSD): Status: Acute Code(s): F43.12 - Post-traumatic stress disorder, chronic Plan 01/15: increase HS risperidone to 2 mg. otherwise continue home medications. check VPA level. supportive Tx during cocaine detox. refer to CSS. 01/16: irritable, labile. VPA level not consistent with taking the medication prior to admission. add risperidone 0.5 mg Q4H PRN voices. 01/17: remains irritable/labile. expressing paranoid delusion that SW is staring at her in some kind of aggressive way, yelling at SW. has had only 2 doses of VPA since restarting. continue to support through cocaine detox, mood stabilization, and referral to CSS. Reason for contiued inpatient stay Substantial Risk for: harm to self, harm to others, inability to function and rapid decompensation Time Spent With Patient Time: Total time managing care of this patient today __35__ minutes.
[2023-01-17] MEDS: risperiDONE 2 MG TABLET PO (22:24)
[2023-01-17] MEDS: Divalproex Sodium ER 500 MG TAB.ER.24H 1000 MG PO (22:24)
[2023-01-17] MEDS: busPIRone HCl 10 MG TABLET 20 MG PO (22:25)
[2023-01-17 22:30] VITALS: RESP 16
[2023-01-18 02:40] LABS: CT PCR NOT DETECTED (Not Detect.); NG PCR NOT DETECTED (Not Detect.)
[2023-01-18] MEDS: Multivitamin TABLET 1 TAB PO (08:05)
[2023-01-18] MEDS: risperiDONE 1 MG TABLET PO ×2 (08:05→12:02)
[2023-01-18] MEDS: Ferrous Sulfate 324 MG TABLET.DR PO (08:05)
[2023-01-18] MEDS: Naltrexone HCl 50 MG TABLET PO (08:05)
[2023-01-18] MEDS: Thiamine HCL 100 MG TABLET PO (08:05)
[2023-01-18] MEDS: Baclofen 10 MG TABLET PO ×3 (08:05→20:34)
[2023-01-18] MEDS: Omeprazole 20 MG CAPSULE.DR PO (08:05)
[2023-01-18] MEDS: Nicotine 21 MG PATCH.TD24 TRANSDERMA (08:17)
[2023-01-18 08:20] VITALS: BP 107/61; PULSE 63; RESP 18; TEMP 36.6; O2SAT 100
[2023-01-18] MEDS: Acetaminophen 325 MG TABLET 650 MG PO (14:24)
--- NOTE | 2023-01-18 14:58 | P.PNPSI_ITS ---
Subjective Subjective Date of Service: 01/18/23 Reason For Visit: psychosis Interim History: relatively pleasant and cooperative today. c/o insomnia, agrees to try thorazine 100 at HS until mood stabilizer more effective. also c/o continued AH, asking for more risperidone. 1 mg at noon added. pt aware bed at [facility] has been found for her for next saturday. per staff, safe. anx/dep 10. yelling in morning. improved control later in the day. eves in room. dep 6, improving. Mental Status Exam Mental Status Exam Narrative: Appearance: thin, wearing hospital gown, improving hygiene, in NAD Behavior: calm, cooperative Psychomotor: no PMA/PMR Speech: clear, normal rate/rhythm/volume, spontaneous TP: linear TC: no paranoid delusions expressed Mood: not assessed Affect: more flexible, hyper-intense, min-labile SI: none expressed HI: none expressed AH/VH: none expressed Delusions: none expressed Insight/judgment: impaired Memory/cog: alert, oriented x 3. Grossly intact to conversational testing. Diagnostics Vital Signs (24Hr): Vital Signs - 24 hr 01/17/23 22:30 01/18/23 08:20 Temperature 97.8 F Pulse Rate 63 Respiratory Rate 16 18 Blood Pressure 107/61 Pulse Oximetry 100 Oxygen Delivery Method Room Air BMI result Body Mass Index 24.3 Labs 01/14/23 10:12 01/14/23 10:12 Labs: Laboratory Results - last 48 hr 01/17/23 17:00 Chlam trachomat DNA PCR NOT DETECTED N.gonorrhoeae DNA (PCR) NOT DETECTED Medications Medications Current Medications Acetaminophen (Acetaminophen 325 Mg Tablet) 650 mg PO Q6H PRN PRN Reason: Headache/Pain Mild Scale (1-3) Last Admin: 01/18/23 14:24 Dose: 650 mg Al Hydroxide/Mg Hydroxide (Magnesium Hydrox/Alum Hydrox 30 Ml Oral.Susp) 30 ml PO Q6H PRN PRN Reason: Heartburn/Nausea Last Admin: 01/16/23 09:01 Dose: 30 ml Albuterol Sulfate (Albuterol Sulfate 90 Mcg 8 Gm Inhaler) 1 - 2 puff INHALE Q4H PRN PRN Reason: wheezing Baclofen (Baclofen 10 Mg Tablet) 10 mg PO TID [facility] Last Admin: 01/18/23 14:24 Dose: 10 mg Buspirone HCl (Buspirone Hcl 10 Mg Tablet) 20 mg PO BEDTIME [facility] Last Admin: 01/17/23 22:25 Dose: 20 mg Chlorpromazine HCl (Chlorpromazine Hcl 100 Mg Tablet) 100 mg PO BEDTIME [facility] Divalproex Sodium (Divalproex Sodium Er 500 Mg Tab.Er.24h) 1,000 mg PO BEDTIME [facility] Last Admin: 01/17/23 22:24 Dose: 1,000 mg Ferrous Sulfate (Ferrous Sulfate 324 Mg Tablet.Dr) 324 mg PO DAILY [facility] Last Admin: 01/18/23 08:05 Dose: 324 mg Hydroxyzine HCl (Hydroxyzine Hcl 50 Mg Tablet) 50 mg PO BID PRN PRN Reason: Anxiety Last Admin: 01/16/23 09:55 Dose: 50 mg Magnesium Hydroxide (Milk Of Magnesia 30 Ml Oral.Susp) 30 ml PO DAILY PRN PRN Reason: Constipation Multivitamins/Vitamin C (Multivitamin Tablet) 1 tab PO DAILY [facility] Last Admin: 01/18/23 08:05 Dose: 1 tab Naltrexone HCl (Naltrexone Hcl 50 Mg Tablet) 50 mg PO DAILY [facility] Last Admin: 01/18/23 08:05 Dose: 50 mg Nicotine (Nicotine 21 Mg Patch.Td24) 21 mg TRANSDERMA DAILY [facility] Last Admin: 01/18/23 08:17 Dose: 21 mg Omeprazole (Omeprazole 20 Mg Capsule.Dr) 20 mg PO DAILY@0630 [facility] Last Admin: 01/18/23 08:05 Dose: 20 mg Risperidone (Risperidone 1 Mg Tablet) 1 mg PO DAILY [facility] Last Admin: 01/18/23 08:05 Dose: 1 mg Risperidone (Risperidone 2 Mg Tablet) 2 mg PO BEDTIME [facility] Last Admin: 01/17/23 22:24 Dose: 2 mg Risperidone (Risperidone 0.5 Mg Tablet) 0.5 mg PO Q4H PRN PRN Reason: Last Admin: 01/17/23 12:42 Dose: 0.5 mg Risperidone (Risperidone 1 Mg Tablet) 1 mg PO DAILY@1200 [facility] Last Admin: 01/18/23 12:02 Dose: 1 mg Thiamine HCl (Thiamine Hcl 100 Mg Tablet) 100 mg PO DAILY [facility] Last Admin: 01/18/23 08:05 Dose: 100 mg Allergies Allergies Allergy/AdvReac Type Severity Reaction Status Date / Time haloperidol [From HALDOL] Allergy Mild DROWSY Verified 09/23/22 14:07 quetiapine [From Seroquel] Allergy Hallucinati Verified 09/23/22 19:36 ons Assessment & Plan Assessment & Plan (1) Cocaine use disorder: Status: Acute Code(s): F14.10 - Cocaine abuse, uncomplicated (2) Suicidal ideation: Status: Acute Code(s): R45.851 - Suicidal ideations (3) Chronic post-traumatic stress disorder (PTSD): Status: Acute Code(s): F43.12 - Post-traumatic stress disorder, chronic Plan 01/15: increase HS risperidone to 2 mg. otherwise continue home medications. c heck VPA level. supportive Tx during cocaine detox. refer to [facility]. 01/16: irritable, labile. VPA level not consistent with taking the medication prior to admission. add risperidone 0.5 mg Q4H PRN voices. 01/17: remains irritable/labile. expressing paranoid delusion that SW is staring at her in some kind of aggressive way, yelling at SW. has had only 2 doses of VPA since restarting. continue to support through cocaine detox, mood stabilization, and referral to [facility]. 01/18: [facility] bed for next saturday. insomnia, will try thorazine 100 until VPA more effective. will check labs saturday. DC saturday to [facility]. Reason for contiued inpatient stay Substantial Risk for: inability to function and rapid decompensation Time Spent With Patient Time: Total time managing care of this patient today __25__ minutes.
[2023-01-18 18:00] VITALS: BP 120/63; PULSE 78; RESP 16; TEMP 36.5; O2SAT 99
[2023-01-18 20:00] VITALS: BP 109/68; PULSE 81; RESP 18; TEMP 36.7; O2SAT 97
[2023-01-18] MEDS: risperiDONE 2 MG TABLET PO (20:34)
[2023-01-18] MEDS: Divalproex Sodium ER 500 MG TAB.ER.24H 1000 MG PO (20:34)
[2023-01-18] MEDS: chlorproMAZINE HCl 100 MG TABLET PO (20:35)
[2023-01-18] MEDS: busPIRone HCl 10 MG TABLET 20 MG PO (20:35)
[2023-01-19 09:24] VITALS: BP 102/58; PULSE 74; RESP 16; TEMP 36.4; O2SAT 97
[2023-01-19] MEDS: Ferrous Sulfate 324 MG TABLET.DR PO (09:25)
[2023-01-19] MEDS: Baclofen 10 MG TABLET PO ×3 (09:26→20:22)
[2023-01-19] MEDS: Naltrexone HCl 50 MG TABLET PO (09:26)
[2023-01-19] MEDS: Nicotine 21 MG PATCH.TD24 TRANSDERMA (09:26)
[2023-01-19] MEDS: Omeprazole 20 MG CAPSULE.DR PO (09:26)
[2023-01-19] MEDS: Thiamine HCL 100 MG TABLET PO (09:26)
[2023-01-19] MEDS: Multivitamin TABLET 1 TAB PO (09:26)
[2023-01-19] MEDS: risperiDONE 1 MG TABLET PO ×2 (09:26→12:15)
[2023-01-19] MEDS: risperiDONE 0.5 MG TABLET PO (10:13)
--- NOTE | 2023-01-19 11:10 | HO.PSYCHPN ---
Subjective Subjective Date of Service: 01/19/23 Reason For Visit: psychosis Subjective Notes: Conditional Voluntary Healthcare Proxy: No Guardianship: No Interim History: Patient was seen and discussed in rounds today. Records and plans were reviewed. There is a bed for her at [facility] for next Saturday. She does have some auditory hallucinations and response to internal stimuli. She is medication compliant. She is brighter in her affect. The auditory hallucinations are improved. No complaints or side effects. Questions about auditory hallucinations discussed. Medication Compliance: Yes Side effects from medications: No Attending Groups: Yes Review of Systems Review of Systems Yes all other systems are reviewed and are negative Mental Status Exam Mental Status Exam Narrative: In today's visit she is alert, oriented and pleasant. Normal speech. Good eye contact. Affect is appropriate and varied. No acute signs of psychosis but admits to still having some auditory hallucinations intermittently. No SI. Cognitively intact. Judgment is intact Diagnostics Vital Signs (24Hr): Vital Signs - 24 hr 01/18/23 18:00 01/18/23 20:00 01/19/23 09:24 Temperature 97.7 F 98.1 F 97.5 F Pulse Rate 78 81 74 Respiratory Rate 16 18 16 Blood Pressure 120/63 109/68 102/58 L Pulse Oximetry 99 97 97 Oxygen Delivery Method Room Air Room Air Room Air BMI result Body Mass Index 24.3 Labs 01/14/23 10:12 01/14/23 10:12 Labs: Laboratory Results - last 48 hr 01/17/23 17:00 Chlam trachomat DNA PCR NOT DETECTED N.gonorrhoeae DNA (PCR) NOT DETECTED Medications Medications Current Medications Acetaminophen (Acetaminophen 325 Mg Tablet) 650 mg PO Q6H PRN PRN Reason: Headache/Pain Mild Scale (1-3) Last Admin: 01/18/23 14:24 Dose: 650 mg Al Hydroxide/Mg Hydroxide (Magnesium Hydrox/Alum Hydrox 30 Ml Oral.Susp) 30 ml PO Q6H PRN PRN Reason: Heartburn/Nausea Last Admin: 01/16/23 09:01 Dose: 30 ml Albuterol Sulfate (Albuterol Sulfate 90 Mcg 8 Gm Inhaler) 1 - 2 puff INHALE Q4H PRN PRN Reason: wheezing Baclofen (Baclofen 10 Mg Tablet) 10 mg PO TID YUDITH Last Admin: 01/19/23 09:26 Dose: 10 mg Buspirone HCl (Buspirone Hcl 10 Mg Tablet) 20 mg PO BEDTIME [facility] Last Admin: 01/18/23 20:35 Dose: 20 mg Chlorpromazine HCl (Chlorpromazine Hcl 100 Mg Tablet) 100 mg PO BEDTIME [facility] Last Admin: 01/18/23 20:35 Dose: 100 mg Divalproex Sodium (Divalproex Sodium Er 500 Mg Tab.Er.24h) 1,000 mg PO BEDTIME [facility] Last Admin: 01/18/23 20:34 Dose: 1,000 mg Ferrous Sulfate (Ferrous Sulfate 324 Mg Tablet.) 324 mg PO DAILY [facility] Last Admin: 01/19/23 09:25 Dose: 324 mg Hydroxyzine HCl (Hydroxyzine Hcl 50 Mg Tablet) 50 mg PO BID PRN PRN Reason: Anxiety Last Admin: 01/16/23 09:55 Dose: 50 mg Magnesium Hydroxide (Milk Of Magnesia 30 Ml Oral.Susp) 30 ml PO DAILY PRN PRN Reason: Constipation Multivitamins/Vitamin C (Multivitamin Tablet) 1 tab PO DAILY [facility] Last Admin: 01/19/23 09:26 Dose: 1 tab Naltrexone HCl (Naltrexone Hcl 50 Mg Tablet) 50 mg PO DAILY [facility] Last Admin: 01/19/23 09:26 Dose: 50 mg Nicotine (Nicotine 21 Mg Patch.Td24) 21 mg TRANSDERMA DAILY [facility] Last Admin: 01/19/23 09:26 Dose: 21 mg Omeprazole (Omeprazole 20 Mg Capsule.) 20 mg PO DAILY@0630 [facility] Last Admin: 01/19/23 09:26 Dose: 20 mg Risperidone (Risperidone 1 Mg Tablet) 1 mg PO DAILY [facility] Last Admin: 01/19/23 09:26 Dose: 1 mg Risperidone (Risperidone 2 Mg Tablet) 2 mg PO BEDTIME [facility] Last Admin: 01/18/23 20:34 Dose: 2 mg Risperidone (Risperidone 0.5 Mg Tablet) 0.5 mg PO Q4H PRN PRN Reason: Last Admin: 01/19/23 10:13 Dose: 0.5 mg Risperidone (Risperidone 1 Mg Tablet) 1 mg PO DAILY@1200 [facility] Last Admin: 01/18/23 12:02 Dose: 1 mg Thiamine HCl (Thiamine Hcl 100 Mg Tablet) 100 mg PO DAILY [facility] Last Admin: 01/19/23 09:26 Dose: 100 mg Allergies Allergies Allergy/AdvReac Type Severity Reaction Status Date / Time haloperidol [From HALDOL] Allergy Mild DROWSY Verified 09/23/22 14:07 quetiapine [From Seroquel] Allergy Hallucinati Verified 09/23/22 19:36 ons Assessment & Plan Assessment & Plan (1) Cocaine use disorder: Status: Acute Code(s): F14.10 - Cocaine abuse, uncomplicated (2) Suicidal ideation: Status: Acute Code(s): R45.851 - Suicidal ideations (3) Chronic post-traumatic stress disorder (PTSD): Status: Acute Code(s): F43.12 - Post-traumatic stress disorder, chronic Plan 01/15: increase HS risperidone to 2 mg. otherwise continue home medications. check VPA level. supportive Tx during cocaine detox. refer to [facility]. 01/16: irritable, labile. VPA level not consistent with taking the medication prior to admission. add risperidone 0.5 mg Q4H PRN voices. 01/17: remains irritable/labile. expressing paranoid delusion that SW is staring at her in some kind of aggressive way, yelling at SW. has had only 2 doses of VPA since restarting. continue to support through cocaine detox, mood stabilization, and referral to [facility]. 01/18: [facility] bed for next saturday. insomnia, will try thorazine 100 until VPA more effective. will check labs saturday. DC saturday to [facility]. 01/19: Continue current regimen and plans Reason for contiued inpatient stay Substantial Risk for: med/psych decompensation Time Spent With Patient Time: Total time managing care of this patient today ____ minutes.
[2023-01-19 20:10] VITALS: BP 118/58; PULSE 78; RESP 18; TEMP 36.7; O2SAT 98
[2023-01-19] MEDS: busPIRone HCl 10 MG TABLET 20 MG PO (20:22)
[2023-01-19] MEDS: chlorproMAZINE HCl 100 MG TABLET PO (20:23)
[2023-01-19] MEDS: risperiDONE 2 MG TABLET PO (20:23)
[2023-01-19] MEDS: Divalproex Sodium ER 500 MG TAB.ER.24H 1000 MG PO (20:23)
[2023-01-20 09:31] VITALS: BP 121/70; PULSE 68; RESP 16; TEMP 36.4; O2SAT 98
[2023-01-20] MEDS: Thiamine HCL 100 MG TABLET PO (09:32)
[2023-01-20] MEDS: Nicotine 21 MG PATCH.TD24 TRANSDERMA ×2 (09:32→16:33)
[2023-01-20] MEDS: Naltrexone HCl 50 MG TABLET PO (09:33)
[2023-01-20] MEDS: Baclofen 10 MG TABLET PO ×3 (09:33→20:37)
[2023-01-20] MEDS: Omeprazole 20 MG CAPSULE.DR PO (09:33)
[2023-01-20] MEDS: Multivitamin TABLET 1 TAB PO (09:33)
[2023-01-20] MEDS: Ferrous Sulfate 324 MG TABLET.DR PO (09:33)
[2023-01-20] MEDS: risperiDONE 1 MG TABLET PO ×2 (09:33→12:45)
[2023-01-20] MEDS: risperiDONE 0.5 MG TABLET PO ×2 (09:42→20:38)
--- NOTE | 2023-01-20 09:59 | P.PNPSI_ITS ---
Subjective Subjective Date of Service: 01/20/23 Reason For Visit: psychosis Subjective Notes: Conditional Voluntary Healthcare Proxy: No Guardianship: No Interim History: Patient was seen and discussed in rounds today. Records and plans were reviewed. She continues to be stable and is doing better with decrease in anxiety, depression and auditory hallucinations. Affect is also quite improved and has been pleasant and interactive. She has been complaining of gas and simethicone p.r.n. was ordered. No other complaints. Eating and sleeping well. No other changes were made today Medication Compliance: Yes Side effects from medications: No Attending Groups: Yes Review of Systems Review of Systems Upper GI complaints/gas Yes all other systems are reviewed and are negative Mental Status Exam Mental Status Exam Narrative: In today's visit she is alert, oriented and pleasant. Normal speech. Good eye contact. Affect is appropriate and varied. No acute signs of psychosis but admits to still having some auditory hallucinations intermittently. No SI. Cog nitively intact. Judgment is intact Diagnostics Vital Signs (24Hr): Vital Signs - 24 hr 01/19/23 09:24 01/19/23 20:10 01/20/23 09:31 Temperature 97.5 F 98.1 F 97.6 F Pulse Rate 74 78 68 Respiratory Rate 16 18 16 Blood Pressure 102/58 L 118/58 L 121/70 Pulse Oximetry 97 98 98 Oxygen Delivery Method Room Air Room Air Room Air BMI result Body Mass Index 24.3 Labs 01/14/23 10:12 01/14/23 10:12 Medications Medications Current Medications Acetaminophen (Acetaminophen 325 Mg Tablet) 650 mg PO Q6H PRN PRN Reason: Headache/Pain Mild Scale (1-3) Last Admin: 01/18/23 14:24 Dose: 650 mg Al Hydroxide/Mg Hydroxide (Magnesium Hydrox/Alum Hydrox 30 Ml Oral.Susp) 30 ml PO Q6H PRN PRN Reason: Heartburn/Nausea Last Admin: 01/16/23 09:01 Dose: 30 ml Albuterol Sulfate (Albuterol Sulfate 90 Mcg 8 Gm Inhaler) 1 - 2 puff INHALE Q4H PRN PRN Reason: wheezing Baclofen (Baclofen 10 Mg Tablet) 10 mg PO TID [facility] Last Admin: 01/20/23 09:33 Dose: 10 mg Buspirone HCl (Buspirone Hcl 10 Mg Tablet) 20 mg PO BEDTIME [facility] Last Admin: 01/19/23 20:22 Dose: 20 mg Chlorpromazine HCl (Chlorpromazine Hcl 100 Mg Tablet) 100 mg PO BEDTIME [facility] Last Admin: 01/19/23 20:23 Dose: 100 mg Divalproex Sodium (Divalproex Sodium Er 500 Mg Tab.Er.24h) 1,000 mg PO BEDTIME [facility] Last Admin: 01/19/23 20:23 Dose: 1,000 mg Ferrous Sulfate (Ferrous Sulfate 324 Mg Tablet.) 324 mg PO DAILY [facility] Last Admin: 01/20/23 09:33 Dose: 324 mg Hydroxyzine HCl (Hydroxyzine Hcl 50 Mg Tablet) 50 mg PO BID PRN PRN Reason: Anxiety Last Admin: 01/16/23 09:55 Dose: 50 mg Magnesium Hydroxide (Milk Of Magnesia 30 Ml Oral.Susp) 30 ml PO DAILY PRN PRN Reason: Constipation Multivitamins/Vitamin C (Multivitamin Tablet) 1 tab PO DAILY [facility] Last Admin: 01/20/23 09:33 Dose: 1 tab Naltrexone HCl (Naltrexone Hcl 50 Mg Tablet) 50 mg PO DAILY [facility] Last Admin: 01/20/23 09:33 Dose: 50 mg Nicotine (Nicotine 21 Mg Patch.Td24) 21 mg TRANSDERMA DAILY [facility] Last Admin: 01/20/23 09:32 Dose: 21 mg Omeprazole (Omeprazole 20 Mg Capsule.) 20 mg PO DAILY@0630 [facility] Last Admin: 01/20/23 09:33 Dose: 20 mg Risperidone (Risperidone 1 Mg Tablet) 1 mg PO DAILY [facility] Last Admin: 01/20/23 09:33 Dose: 1 mg Risperidone (Risperidone 2 Mg Tablet) 2 mg PO BEDTIME [facility] Last Admin: 01/19/23 20:23 Dose: 2 mg Risperidone (Risperidone 0.5 Mg Tablet) 0.5 mg PO Q4H PRN PRN Reason: Last Admin: 01/20/23 09:42 Dose: 0.5 mg Risperidone (Risperidone 1 Mg Tablet) 1 mg PO DAILY@1200 [facility] Last Admin: 01/19/23 12:15 Dose: 1 mg Simethicone (Simethicone 80 Mg Tab.Chew) 80 mg PO BID PRN PRN Reason: Gas Thiamine HCl (Thiamine Hcl 100 Mg Tablet) 100 mg PO DAILY [facility] Last Admin: 01/20/23 09:32 Dose: 100 mg Allergies Allergies Allergy/AdvReac Type Severity Reaction Status Date / Time haloperidol [From HALDOL] Allergy Mild DROWSY Verified 09/23/22 14:07 quetiapine [From Seroquel] Allergy Hallucinati Verified 09/23/22 19:36 ons Assessment & Plan Assessment & Plan (1) Cocaine use disorder: Status: Acute Code(s): F14.10 - Cocaine abuse, uncomplicated (2) Suicidal ideation: Status: Acute Code(s): R45.851 - Suicidal ideations (3) Chronic post-traumatic stress disorder (PTSD): Status: Acute Code(s): F43.12 - Post-traumatic stress disorder, chronic Plan 01/15: increase HS risperidone to 2 mg. otherwise continue home medications. check VPA level. supportive Tx during cocaine detox. refer to [facility]. 01/16: irritable, labile. VPA level not consistent with taking the medication prior to admission. add risperidone 0.5 mg Q4H PRN voices. 01/17: remains irritable/labile. expressing paranoid delusion that SW is staring at her in some kind of aggressive way, yelling at SW. has had only 2 doses of VPA since restarting. continue to support through cocaine detox, mood stabilization, and referral to [facility]. 01/18: [facility] bed for next saturday. insomnia, will try thorazine 100 until VPA more effective. will check labs saturday. DC saturday to [facility]. 01/19: Continue current regimen and plans 01/20: Continue current plans and regimen Reason for contiued inpatient stay Substantial Risk for: med/psych decompensation Time Spent With Patient Time: Total time managing care of this patient today ____ minutes.
[2023-01-20 20:20] VITALS: BP 99/55; PULSE 72; RESP 16; TEMP 36.4; O2SAT 98
[2023-01-20] MEDS: busPIRone HCl 10 MG TABLET 20 MG PO (20:37)
[2023-01-20] MEDS: risperiDONE 2 MG TABLET PO (20:37)
[2023-01-20] MEDS: Divalproex Sodium ER 500 MG TAB.ER.24H 1000 MG PO (20:37)
[2023-01-20] MEDS: chlorproMAZINE HCl 100 MG TABLET PO (20:37)
[2023-01-21 09:46] VITALS: BP 122/70; PULSE 93; RESP 16; TEMP 36.8; O2SAT 96
[2023-01-21] MEDS: Nicotine 21 MG PATCH.TD24 TRANSDERMA (09:48)
[2023-01-21] MEDS: risperiDONE 0.5 MG TABLET PO (09:48)
[2023-01-21] MEDS: Naltrexone HCl 50 MG TABLET PO (09:49)
[2023-01-21] MEDS: risperiDONE 1 MG TABLET PO (09:49)
[2023-01-21] MEDS: Thiamine HCL 100 MG TABLET PO (09:49)
[2023-01-21] MEDS: Multivitamin TABLET 1 TAB PO (09:49)
[2023-01-21] MEDS: Baclofen 10 MG TABLET PO (09:49)
[2023-01-21] MEDS: Ferrous Sulfate 324 MG TABLET.DR PO (09:49)
[2023-01-21] MEDS: Omeprazole 20 MG CAPSULE.DR PO (09:52)
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
[2023-01-21 12:21] LABS: COVID-19 Test Negative (Negative); IDNOW Serial# 9DB6401D
[2023-01-21 12:24] LABS: MANUAL DIFF FLAG NO
[2023-01-21 12:27] LABS: Basophils Percent Auto 0.2 % (0-2); Eosinophils Absolute Auto 0.1 X10*3/uL (0.0-0.4); Eosinophils Percent Auto 2.2 % (0-4); Hematocrit 39.4 % (37.0-47.0); Hemoglobin 12.5 g/dl (12.0-16.0); Imm Gran Abs Auto 0.01 X10*3/uL (0.00-0.03); Imm Gran Pct Auto 0.2 % (0.0-0.4); Lymphocytes Percent Auto 43.6 % (20-40); Mean Corpuscular HGB Conc 31.7 g/dl (31.0-35.0); Mean Corpuscular Hemoglobin 26.4 pg (27.0-33.0); Mean Corpuscular Volume 83.1 fL (80.0-98.0); Mean Platelet Volume 10.1 fL (9.4-12.3); Monocytes Absolute Auto 0.3 X10*3/uL (0.1-1.2); Monocytes Percent Auto 6.4 % (2-11); Neutrophils Absolute Auto 2.1 x10*3/uL (2.0-8.3); Neutrophils Percent Auto 47.4 % (45-73); Platelet Count 354 X10*3/uL (160-400); Red Blood Count 4.74 X10*6/uL (4.20-5.50); White Blood Count 4.5 X10*3/uL (4.8-10.8)
[2023-01-21 12:34] LABS: Ammonia 46 umol/L (13-55)
[2023-01-21 12:44] LABS: Alanine Aminotransferase 11 U/L (0-31); Albumin Level 4.1 g/dL (3.5-5.0); Alkaline Phosphatase 47 U/L (39-117); Anion Gap 10 (12-20); Aspartate Amino Transferase 15 U/L (5-31); Bilirubin Direct < 0.2 mg/dL (0.0-0.5); Bilirubin Total 0.2 mg/dL (0.0-1.0); Blood Urea Nitrogen 16 mg/dL (9-16); Carbon Dioxide 28 mmol/L (22-29); Chloride 106 mmol/L (96-108); Creatinine Clr Calc Pharmacy 77.2; Estimated Glomerular Filt Rate > 60; Glucose Random 118 mg/dL (60-115); Potassium 4.4 mmol/L (3.3-5.1); Sodium 140 mmol/L (135-145)
--- NOTE | 2023-01-21 12:45 | PC.NURSE ---
Patient is alert and oriented x4. Reports a readiness for discharge. Denies SI/HI/VH. Reports AH have improved since admission. Patient denies physical complaints at this time.
[2023-01-21 12:49] LABS: Valproate 79.9 mcg/mL (50.0-100.0)
== END 2023-01-21 12:45 | DRG 885 ==
LOC: HO.ED 11:46 → HO.PADLT16 01-15 08:50
PROVIDERS: Admitting Provider Psychiatry & Neurology Psychiatry; Emergency Provider Emergency Medicine; Visit Provider Psychiatry & Neurology Psychiatry
DX: F25.0 Schizoaffective disorder, bipolar type (principal); R45.851 Suicidal ideations; F14.20 Cocaine dependence, uncomplicated; F12.20 Cannabis dependence, uncomplicated; F17.210 Nicotine dependence, cigarettes, uncomplicated; F43.12 Post-traumatic stress disorder, chronic; Z20.822 Contact with and (suspected) exposure to COVID-19; Z71.6 Tobacco abuse counseling; Z88.8 Allergy status to other drugs, medicaments and biological substances; Z79.899 Other long term (current) drug therapy
CPT/HCPCS: 0353U; 36415; 80048; 80061; 80076; 80164; 80307; 81003; 81025; 82140; 82607; 82746; 83036; 83690; 84443; 85025; 87635; 93005; 99285

== ENCOUNTER 2023-03-04 12:57 | Inpatient (IN) | payer MEDICARE, MEDICAID, SELFPAY ==
--- NOTE | 2023-03-04 07:22 | ECG_ITS ---
Test Reason : cocaine use Blood Pressure : / mmHG Vent. Rate : 128 BPM Atrial Rate : 000 BPM P-R Int : 000 ms QRS Dur : 088 ms QT Int : 396 ms P-R-T Axes : 000 073 026 degrees QTc Int : 578 ms sinus tachycardia Nonspecific T wave changes Abnormal ECG When compared with ECG of 14-JAN-2023 10:44, Vent. rate has increased BY 66 BPM Nonspecific T wave abnormality now evident in Lateral leads Referred By: Cammie Billingsley Electronically Signed By:Brent Marion
--- NOTE | 2023-03-04 13:03 | ED_ITS ---
HPI - Psych General Chief Complaint: Psychiatric Symptoms <GEMMA Hilliard - Last Filed: 03/04/23 13:06> Stated Complaint: crisis SI thoughts <GEMMA Hilliard Last Filed: 03/04/23 13:06> Time Seen by Provider: 03/04/23 13:40 <GEMMA Hilliard - Last Filed: 03/04/23 13:06> Source: patient <GEMMA Noyola Last Filed: 03/04/23 15:55> Mode of arrival: ambulatory <GEMMA Noyola - Last Filed: 03/04/23 15:55> Limitations: no limitations <GEMMA Noyola Last Filed: 03/04/23 15:55> History of Present Illness HPI Narrative: 42 yo female with history of schizoaffective disorder, PTSD, cocaine use, marijuana use who presents to the ER for evaluation of suicidal thoughts and auditory hallucinations. She states they are acute on chronic but worse in the last 1 week. The voices are telling her to hurt herself. She has no plan of how she was going to harm herself. She reports medication compliance. She admits to using cocaine last week. No other illicit drugs or ETOH. She lives with her sister who knows she is here. She says she is sleeping and eating normally. Patient was recently hospitalized here in January 2023 and medications were adjusted. She was started on thorazine and risperidone. <GEMMA Noyola - Last Filed: 03/04/23 15:55> MD complaint: suicidal ideation, feels depressed and hallucinations <GEMMA Noyola - Last Filed: 03/04/23 15:55> Onset (ago): week(s) <GEMMA Noyola Last Filed: 03/04/23 15:55> Duration: changing over time <GEMMA Noyola Last Filed: 03/04/23 15:55> History of same: Yes <GEMMA Noyola - Last Filed: 03/04/23 15:55> Relieving factors: none <GEMMA Noyola Last Filed: 03/04/23 15:55> Exacerbating factors: none <GEMMA Noyola Last Filed: 03/04/23 15:55> Associated psychiatric symptoms: none <GEMMA Noyola - Last Filed: 03/04/23 15:55> Associated symptoms: denies other symptoms <GEMMA Noyola - Last Filed: 03/04/23 15:55> Treatments prior to arrival: none <GEMMA Noyola - Last Filed: 03/04/23 15:55> If self harm: admits thoughts of self harm <GEMMA Noyola - Last Filed: 03/04/23 15:55> Related Data Home Medications: Home Medications Medication Instructions Recorded Confirmed divalproex 500 mg tablet,extended 500 mg PO BID 03/04/23 03/04/23 release 24 hr Previous Rx's Medication Instructions Recorded albuterol sulfate 90 mcg/actuation 1 - 2 puff inhalation Q4H PRN 01/21/23 aerosol inhaler (ProAir HFA) wheezing 30 days #1 inhaler baclofen 10 mg tablet 1 tab PO TID 30 days #90 tabs 01/21/23 buspirone 10 mg tablet 2 tab PO BEDTIME 30 days #60 tabs 01/21/23 chlorpromazine 100 mg tablet 100 mg PO BEDTIME 30 days #30 tabs 01/21/23 ferrous sulfate 325 mg (65 mg 325 mg PO DAILY 30 days #30 tabs 01/21/23 iron) tablet hydroxyzine HCl 50 mg tablet 1 tab PO BID PRN Anxiety 30 days 01/21/23 #60 tabs multivitamin with folic acid 400 1 tab PO DAILY 30 days #30 tabs 01/21/23 mcg tablet (Daily-Emiliano (with folic acid)) naltrexone 50 mg tablet 1 tab PO DAILY 30 days #30 tabs 01/21/23 pantoprazole 40 mg tablet,delayed 40 mg PO DAILY 30 days #30 tabs 01/21/23 release risperidone 0.5 mg tablet 0.5 mg PO BID PRN AH 30 days #60 01/21/23 tabs risperidone 1 mg tablet 1 mg PO DAILY 30 days #30 tabs 01/21/23 risperidone 2 mg tablet 2 mg PO BEDTIME 30 days #30 tabs 01/21/23 <GEMMA Hilliard - Last Filed: 03/04/23 13:06> Allergies/Adverse Reactions: Allergies Allergy/AdvReac Type Severity Reaction Status Date / Time haloperidol [From HALDOL] Allergy Mild DROWSY Verified 03/04/23 13:08 quetiapine [From Seroquel] Allergy Hallucinati Verified 03/04/23 13:08 ons <GEMMA Hilliard - Last Filed: 03/04/23 13:06> Review of Systems Review of Systems: Yes all other systems are reviewed and are negative <GEMMA Noyola - Last Filed: 03/04/23 15:55> [facility] Past Medical History Medical History: Medical History Cannabis use disorder, moderate, dependence Chronic post-traumatic stress disorder (PTSD) Cocaine use disorder Schizoaffective disorder <GEMMA Hilliard - Last Filed: 03/04/23 13:06> Social History Social History: Social History Household Members: Family Household Members Other:: sister Housing: Apartment Housing Other:: [address] [place] [address] Do you presently have visiting nurse or other home services: Yes Alcohol intake: never Patient Tobacco Use Status: Current everyday Tobacco user Tobacco use type: Cigarette Cigarette Packs Per Day: 1 Cigarettes Per Day: 20.0 Years Smoked: 5 Smoked in Last 30 Days: No e-Cigarette/Vaping Use: Currently Using Second Hand Smoke Exposure: No Use of substances other than those prescribed or required for medical reasons: No Substance Use Type: Crack/Cocaine, Marijuana and Caffiene Advance Directives: No Advance Directives Information Provided: No Healthcare Proxy: No Guardian: No Patient : No service: No Sexual orientation: Straight/Heterosexual <GEMMA Hilliard - Last Filed: 03/04/23 13:06> Physical Exam Vital Signs: Vital Signs: Last Vital Signs Temp 97.0 F 03/04/23 13:04 Pulse 101 H 03/04/23 13:04 Resp 18 03/04/23 13:04 BP 136/79 03/04/23 13:04 Pulse Ox 98 03/04/23 13:04 O2 Del Method Room Air 03/04/23 13:04 BMI result Body Mass Index 22.8 <GEMMA Hilliard - Last Filed: 03/04/23 13:06> Vital Signs: Last Vital Signs Temp 97.0 F 03/04/23 13:04 Pulse 101 H 03/04/23 13:04 Resp 18 03/04/23 13:04 BP 136/79 03/04/23 13:04 Pulse Ox 98 03/04/23 13:04 O2 Del Method Room Air 03/04/23 13:04 BMI result Body Mass Index 22.8 <GEMMA Noyola - Last Filed: 03/04/23 15:55> Vital Signs: Last Vital Signs Temp 97.0 F 03/04/23 13:04 Pulse 101 H 03/04/23 13:04 Resp 18 03/04/23 13:04 BP 136/79 03/04/23 13:04 Pulse Ox 98 03/04/23 13:04 O2 Del Method Room Air 03/04/23 13:04 BMI result Body Mass Index 22.8 <GEMMA Zuniga - Last Filed: 03/04/23 18:20> Appearance: Alert. Oriented X3. No acute distress. Head: normocephalic, atraumatic. Eyes: Pupils equal, round and reactive to light. ENT: Pharynx normal. No tonsillar swelling or exudate. Neck: Normal inspection. Neck supple. CVS: Tachycardic, regular rhythm. Pulses normal. Respiratory: No respiratory distress. Breath sounds normal. Abdomen: Soft and nontender. +BS x4 Skin: Skin warm and dry. Normal skin color. Normal skin turgor. No rashes. Extremities: No lower extremity edema. No joint swelling. Neuro/psych: Oriented X 3. No motor deficit. No sensory deficit. CN II-XII i ntact. Normal speech and cognition. Makes eye contact. Soft spoken. Feels depressed. Answers questions appropriately. +SI. +AH. Does not appear to be responding to internal stimuli at this time. <GEMMA Noyola - Last Filed: 03/04/23 15:55> Course Course Course Narrative: RME: 42yo F w/PMHx PTSD, cocaine use, schizoaffective c/o SI thoughts x days without plan. Also reports both AH & VH. Denies HI, ETOH or ellicit drug use Labs, DELGADO, Ethanol, CARE team consult ordered Full HPI, ROS and PE to be performed by primary ED provider. <GEMMA Hilliard - Last Filed: 03/04/23 13:06> Reevaluation(s) Reevaluation #1: Patient patient bed search. <GEMMA Zuniga - Last Filed: 03/04/23 18:20> Medications Administered Generic Name Dose Route Start Last Admin Trade Name Freq PRN Reason Stop Dose Admin Baclofen 10 mg 03/04/23 15:15 03/04/23 16:06 Baclofen 10 Mg Tablet PO 10 mg TID YUDITH Administration Naltrexone HCl 50 mg 03/04/23 15:15 03/04/23 15:56 Naltrexone Hcl 50 Mg Tablet PO 50 mg DAILY YUDITH Administration Discontinued Medications Generic Name Dose Route Start Last Admin Trade Name Freq PRN Reason Stop Dose Admin Lorazepam 1 mg 03/04/23 13:57 03/04/23 14:06 Lorazepam 1 Mg Tablet PO 03/04/23 13:58 1 mg ONCE ONE Administration Nicotine 14 mg 03/04/23 15:08 03/04/23 16:04 Nicotine 14 Mg Patch.Td24 TRANSDERMA 03/04/23 15:09 14 mg ONCE ONE Administration Risperidone 1 mg 03/04/23 13:57 03/04/23 14:06 Risperidone 1 Mg Tablet PO 03/04/23 13:58 1 mg ONCE ONE Administration <GEMMA Hilliard - Last Filed: 03/04/23 13:06> Medications Administered Generic Name Dose Route Start Last Admin Trade Name Freq PRN Reason Stop Dose Admin Baclofen 10 mg 03/04/23 15:15 03/04/23 16:06 Baclofen 10 Mg Tablet PO 10 mg TID YUDITH Administration Naltrexone HCl 50 mg 03/04/23 15:15 03/04/23 15:56 Naltrexone Hcl 50 Mg Tablet PO 50 mg DAILY YUDITH Administration Discontinued Medications Generic Name Dose Route Start Last Admin Trade Name Freq PRN Reason Stop Dose Admin Lorazepam 1 mg 03/04/23 13:57 03/04/23 14:06 Lorazepam 1 Mg Tablet PO 03/04/23 13:58 1 mg ONCE ONE Administration Nicotine 14 mg 03/04/23 15:08 03/04/23 16:04 Nicotine 14 Mg Patch.Td24 TRANSDERMA 03/04/23 15:09 14 mg ONCE ONE Administration Risperidone 1 mg 03/04/23 13:57 03/04/23 14:06 Risperidone 1 Mg Tablet PO 03/04/23 13:58 1 mg ONCE ONE Administration <GEMMA Noyola - Last Filed: 03/04/23 15:55> Medications Administered Generic Name Dose Route Start Last Admin Trade Name Freq PRN Reason Stop Dose Admin Baclofen 10 mg 03/04/23 15:15 03/04/23 16:06 Baclofen 10 Mg Tablet PO 10 mg TID YUDITH Administration Naltrexone HCl 50 mg 03/04/23 15:15 03/04/23 15:56 Naltrexone Hcl 50 Mg Tablet PO 50 mg DAILY YUDITH Administration Discontinued Medications Generic Name Dose Route Start Last Admin Trade Name Freq PRN Reason Stop Dose Admin Lorazepam 1 mg 03/04/23 13:57 03/04/23 14:06 Lorazepam 1 Mg Tablet PO 03/04/23 13:58 1 mg ONCE ONE Administration Nicotine 14 mg 03/04/23 15:08 03/04/23 16:04 Nicotine 14 Mg Patch.Td24 TRANSDERMA 03/04/23 15:09 14 mg ONCE ONE Administration Risperidone 1 mg 03/04/23 13:57 03/04/23 14:06 Risperidone 1 Mg Tablet PO 03/04/23 13:58 1 mg ONCE ONE Administration <GEMMA Zuniga - Last Filed: 03/04/23 18:20> Medical Decision Making Medical Decision Making MDM Narrative: 42 yo female with history of schizoaffective disorder, PTSD, cocaine and marijuana use presenting with acute on chronic SI and AH. Medically cleared at this time. Will place patient in physician observation pending CARE team evaluation for possible inpatient psych admission. Home meds were ordered. Phys obs started at 15:10 <GEMMA Noyola - Last Filed: 03/04/23 15:55> Differential Diagnosis Differential Diagnoses: The differential diagnosis associated with the presentation includes <GEMMA Noyola - Last Filed: 03/04/23 15:55> substance induced mood disorder, acute psychosis, schizophrenia, schi zoaffective disorder, PTSD, bipolar disorder, major depression with psychotic features <GEMMA Noyola - Last Filed: 03/04/23 15:55> Admission/Observation Consideration of admission/observation: Escalation of care including admission/observation considered <GEMMA Noyola - Last Filed: 03/04/23 15:55> Consult Healthcare Provider Management of the patient was discussed with: Behavioral Health Provider <GEMMA Noyola - Last Filed: 03/04/23 15:55> Lab Data MDM Lab Attestation statement: I reviewed the patient's lab results. <GEMMA Noyola - Last Filed: 03/04/23 15:55> Result Diagrams: 03/04/23 14:19 03/04/23 14:19 <GEMMA Hilliard - Last Filed: 03/04/23 13:06> Labs: Lab Results 03/04/23 03/04/23 03/04/23 Range/Units 14:19 14:19 14:56 WBC 7.4 (4.8-10.8) X10*3/uL RBC 4.29 (4.20-5.50) X10*6/uL Hgb 11.6 L (12.0-16.0) g/dl Hct 36.3 L (37.0-47.0) % MCV 84.6 (80.0-98.0) fL MCH 27.0 (27.0-33.0) pg MCHC 32.0 (31.0-35.0) g/dl RDW 15.5 (11.0-16.0) % Plt Count 413 H (160-400) X10*3/uL MPV 9.6 (9.4-12.3) fL Immature Gran % (Auto) 0.4 (0.0-0.4) % Neut % (Auto) 68.5 (45-73) % Lymph % (Auto) 23.2 (20-40) % [place] % (Auto) 7.2 (2-11) % Eos % (Auto) 0.4 (0-4) % Baso % (Auto) 0.3 (0-2) % Lymph # (Auto) 1.7 (1.2-4.9) X10*3/uL [place] # (Auto) 0.5 (0.1-1.2) X10*3/uL Eos # (Auto) 0.0 (0.0-0.4) X10*3/uL Baso # (Auto) 0.0 (0.0-0.2) X10*3/uL Abs Immat Gran (auto) 0.03 (0.00-0.03) X10*3/uL Absolute Neuts (auto) 5.1 (2.0-8.3) x10*3/uL Absolute Nucleated RBC 0.000 (0.0-0.012) X10*3/uL Nucleated RBC % (auto) 0.0 (0.0-0.2) /100WBC Sodium 141 (135-145) mmol/L Potassium 3.7 (3.3-5.1) mmol/L Chloride 108 (96-108) mmol/L Carbon Dioxide 24 (22-29) mmol/L Anion Gap 13 (12-20) BUN 11 (9-16) mg/dL Creatinine 0.94 (0.5-1.4) mg/dL Estim Creat Clear Calc 62.2 Estimated GFR > 60 Random Glucose 151 H (60-115) mg/dL Calcium 9.5 (8.4-10.2) mg/dL Total Bilirubin 0.3 (0.0-1.0) mg/dL Direct Bilirubin 0.1 (0.0-0.5) mg/dL AST 15 (5-31) U/L ALT 14 (0-31) U/L Alkaline Phosphatase 45 (39-117) U/L Total Protein 7.1 (6.5-8.0) g/dL Albumin 4.3 (3.5-5.0) g/dL Salicylates < 5.0 L (15-30) mg/dL Urine Opiates Screen Not Detected (Not Detect) Urine Fentanyl Screen POSITIVE H (Not Detect) Acetaminophen < 17 (<30) mcg/mL Ur Barbiturates Screen Not Detected (Not Detect) Ur Phencyclidine Scrn Not Detected (Not Detect) Ur Amphetamines Screen Not Detected (Not Detect) U Benzodiazepines Scrn Not Detected (Not Detect) Urine Cocaine Screen POSITIVE H (Not Detect) U Marijuana (THC) Screen POSITIVE H (Not Detect) Ethyl Alcohol < 10 mg/dL <GEMMA Hilliard - Last Filed: 03/04/23 13:06> Lab Results 03/04/23 03/04/23 03/04/23 Range/Units 14:19 14:19 14:56 WBC 7.4 (4.8-10.8) X10*3/uL RBC 4.29 (4.20-5.50) X10*6/uL Hgb 11.6 L (12.0-16.0) g/dl Hct 36.3 L (37.0-47.0) % MCV 84.6 (80.0-98.0) fL MCH 27.0 (27.0-33.0) pg MCHC 32.0 (31.0-35.0) g/dl RDW 15.5 (11.0-16.0) % Plt Count 413 H (160-400) X10*3/uL MPV 9.6 (9.4-12.3) fL Immature Gran % (Auto) 0.4 (0.0-0.4) % Neut % (Auto) 68.5 (45-73) % Lymph % (Auto) 23.2 (20-40) % [place] % (Auto) 7.2 (2-11) % Eos % (Auto) 0.4 (0-4) % Baso % (Auto) 0.3 (0-2) % Lymph # (Auto) 1.7 (1.2-4.9) X10*3/uL [place] # (Auto) 0.5 (0.1-1.2) X10*3/uL Eos # (Auto) 0.0 (0.0-0.4) X10*3/uL Baso # (Auto) 0.0 (0.0-0.2) X10*3/uL Abs Immat Gran (auto) 0.03 (0.00-0.03) X10*3/uL Absolute Neuts (auto) 5.1 (2.0-8.3) x10*3/uL Absolute Nucleated RBC 0.000 (0.0-0.012) X10*3/uL Nucleated RBC % (auto) 0.0 (0.0-0.2) /100WBC Sodium 141 (135-145) mmol/L Potassium 3.7 (3.3-5.1) mmol/L Chloride 108 (96-108) mmol/L Carbon Dioxide 24 (22-29) mmol/L Anion Gap 13 (12-20) BUN 11 (9-16) mg/dL Creatinine 0.94 (0.5-1.4) mg/dL Estim Creat Clear Calc 62.2 Estimated GFR > 60 Random Glucose 151 H (60-115) mg/dL Calcium 9.5 (8.4-10.2) mg/dL Total Bilirubin 0.3 (0.0-1.0) mg/dL Direct Bilirubin 0.1 (0.0-0.5) mg/dL AST 15 (5-31) U/L ALT 14 (0-31) U/L Alkaline Phosphatase 45 (39-117) U/L Total Protein 7.1 (6.5-8.0) g/dL Albumin 4.3 (3.5-5.0) g/dL Salicylates < 5.0 L (15-30) mg/dL Urine Opiates Screen Not Detected (Not Detect) Urine Fentanyl Screen POSITIVE H (Not Detect) Acetaminophen < 17 (<30) mcg/mL Ur Barbiturates Screen Not Detected (Not Detect) Ur Phencyclidine Scrn Not Detected (Not Detect) Ur Amphetamines Screen Not Detected (Not Detect) U Benzodiazepines Scrn Not Detected (Not Detect) Urine Cocaine Screen POSITIVE H (Not Detect) U Marijuana (THC) Screen POSITIVE H (Not Detect) Ethyl Alcohol < 10 mg/dL <GEMMA Noyola - Last Filed: 03/04/23 15:55> Lab Results 03/04/23 03/04/23 03/04/23 Range/Units 14:19 14:19 14:56 WBC 7.4 (4.8-10.8) X10*3/uL RBC 4.29 (4.20-5.50) X10*6/uL Hgb 11.6 L (12.0-16.0) g/dl Hct 36.3 L (37.0-47.0) % MCV 84.6 (80.0-98.0) fL MCH 27.0 (27.0-33.0) pg MCHC 32.0 (31.0-35.0) g/dl RDW 15.5 (11.0-16.0) % Plt Count 413 H (160-400) X10*3/uL MPV 9.6 (9.4-12.3) fL Immature Gran % (Auto) 0.4 (0.0-0.4) % Neut % (Auto) 68.5 (45-73) % Lymph % (Auto) 23.2 (20-40) % [place] % (Auto) 7.2 (2-11) % Eos % (Auto) 0.4 (0-4) % Baso % (Auto) 0.3 (0-2) % Lymph # (Auto) 1.7 (1.2-4.9) X10*3/uL [place] # (Auto) 0.5 (0.1-1.2) X10*3/uL Eos # (Auto) 0.0 (0.0-0.4) X10*3/uL Baso # (Auto) 0.0 (0.0-0.2) X10*3/uL Abs Immat Gran (auto) 0.03 (0.00-0.03) X10*3/uL Absolute Neuts (auto) 5.1 (2.0-8.3) x10*3/uL Absolute Nucleated RBC 0.000 (0.0-0.012) X10*3/uL Nucleated RBC % (auto) 0.0 (0.0-0.2) /100WBC Sodium 141 (135-145) mmol/L Potassium 3.7 (3.3-5.1) mmol/L Chloride 108 (96-108) mmol/L Carbon Dioxide 24 (22-29) mmol/L Anion Gap 13 (12-20) BUN 11 (9-16) mg/dL Creatinine 0.94 (0.5-1.4) mg/dL Estim Creat Clear Calc 62.2 Estimated GFR > 60 Random Glucose 151 H (60-115) mg/dL Calcium 9.5 (8.4-10.2) mg/dL Total Bilirubin 0.3 (0.0-1.0) mg/dL Direct Bilirubin 0.1 (0.0-0.5) mg/dL AST 15 (5-31) U/L ALT 14 (0-31) U/L Alkaline Phosphatase 45 (39-117) U/L Total Protein 7.1 (6.5-8.0) g/dL Albumin 4.3 (3.5-5.0) g/dL Salicylates < 5.0 L (15-30) mg/dL Urine Opiates Screen Not Detected (Not Detect) Urine Fentanyl Screen POSITIVE H (Not Detect) Acetaminophen < 17 (<30) mcg/mL Ur Barbiturates Screen Not Detected (Not Detect) Ur Phencyclidine Scrn Not Detected (Not Detect) Ur Amphetamines Screen Not Detected (Not Detect) U Benzodiazepines Scrn Not Detected (Not Detect) Urine Cocaine Screen POSITIVE H (Not Detect) U Marijuana (THC) Screen POSITIVE H (Not Detect) Ethyl Alcohol < 10 mg/dL <GEMMA Zuniga - Last Filed: 03/04/23 18:20> External Record Review External record reviewed: Inpatient record, Outpatient record, Prior outpatient labs and Prior outpatient radiology <GEMMA Noyola - Last Filed: 03/04/23 15:55> Prescription Management I considered prescription management with: Other (antipsychotic) <GEMMA Noyola Last Filed: 03/04/23 15:55> Chronic Conditions Patient?s care impacted by: Other (mental illness) <GEMMA Noyola - Last Filed: 03/04/23 15:55> Critical Care Time Critical Care Time Critical Care Time: No <GEMMA Noyola Last Filed: 03/04/23 15:55> Discharge Plan Discharge Clinical Impression: Schizoaffective disorder <GEMMA Hilliard Last Filed: 03/04/23 13:06> Patient Disposition: Still a Patient <GEMMA Hilliard Last Filed: 03/04/23 13:06> Prescriptions: No Action risperidone 2 mg Tablet 2 mg PO BEDTIME 30 Days Qty: 30 0RF risperidone 1 mg Tablet 1 mg PO DAILY 30 Days Qty: 30 0RF risperidone 0.5 mg Tablet 0.5 mg PO BID PRN (Reason: AH) 30 Days Qty: 60 0RF chlorpromazine 100 mg Tablet 100 mg PO BEDTIME 30 Days Qty: 30 0RF naltrexone 50 mg tablet 1 tab PO DAILY 30 Days Qty: 30 0RF hydroxyzine HCl 50 mg tablet 1 tab PO BID PRN (Reason: Anxiety) 30 Days Qty: 60 0RF baclofen 10 mg tablet 1 tab PO TID 30 Days Qty: 90 0RF pantoprazole 40 mg tablet,delayed release (DR/EC) 40 mg PO DAILY 30 Days Qty: 30 0RF ferrous sulfate 325 mg (65 mg iron) tablet 325 mg PO DAILY 30 Days Qty: 30 0RF buspirone 10 mg tablet 2 tab PO BEDTIME 30 Days Qty: 60 0RF albuterol sulfate [ProAir HFA] 90 mcg/actuation HFA aerosol inhaler 1 - 2 puff inhalation Q4H PRN (Reason: wheezing) 30 Days Qty: 1 1RF multivitamin with folic acid [Daily-Emiliano (with folic acid)] 400 mcg tablet 1 tab PO DAILY 30 Days Qty: 30 1RF divalproex 500 mg tablet extended release 24 hr 500 mg PO BID <GEMMA Hilliard - Last Filed: 03/04/23 13:06> Interventions: Garrett-Suicide Risk Severity Scale Last Done: 03/04/23 17:03 <GEMMA Hilliard - Last Filed: 03/04/23 13:06>
[2023-03-04 13:04] VITALS: BP 136/79; PULSE 101; RESP 18; TEMP 36.1; O2SAT 98; BMI 22.8
[2023-03-04] MEDS: risperiDONE 1 MG TABLET PO (14:06)
[2023-03-04] MEDS: LORazepam 1 MG TABLET PO (14:06)
[2023-03-04 14:27] LABS: MANUAL DIFF FLAG NO
[2023-03-04 14:32] LABS: Basophils Percent Auto 0.3 % (0-2); Eosinophils Percent Auto 0.4 % (0-4); Hematocrit 36.3 % (37.0-47.0); Hemoglobin 11.6 g/dl (12.0-16.0); Imm Gran Abs Auto 0.03 X10*3/uL (0.00-0.03); Imm Gran Pct Auto 0.4 % (0.0-0.4); Lymphocytes Absolute Auto 1.7 X10*3/uL (1.2-4.9); Lymphocytes Percent Auto 23.2 % (20-40); Mean Corpuscular Volume 84.6 fL (80.0-98.0); Mean Platelet Volume 9.6 fL (9.4-12.3); Monocytes Absolute Auto 0.5 X10*3/uL (0.1-1.2); Monocytes Percent Auto 7.2 % (2-11); Neutrophils Absolute Auto 5.1 x10*3/uL (2.0-8.3); Neutrophils Percent Auto 68.5 % (45-73); Platelet Count 413 X10*3/uL (160-400); Red Blood Count 4.29 X10*6/uL (4.20-5.50); Red Cell Distribution Width 15.5 % (11.0-16.0); White Blood Count 7.4 X10*3/uL (4.8-10.8)
--- NOTE | 2023-03-04 14:32 | PHA.MEDREC ---
Pharmacy Consult ? Medication Reconciliation Pharmacy has completed the medication reconciliation. Patient would not speak to me when I went down
[2023-03-04 14:51] LABS: Alanine Aminotransferase 14 U/L (0-31); Albumin Level 4.3 g/dL (3.5-5.0); Alkaline Phosphatase 45 U/L (39-117); Anion Gap 13 (12-20); Aspartate Amino Transferase 15 U/L (5-31); Bilirubin Direct 0.1 mg/dL (0.0-0.5); Bilirubin Total 0.3 mg/dL (0.0-1.0); Blood Urea Nitrogen 11 mg/dL (9-16); Calcium 9.5 mg/dL (8.4-10.2); Carbon Dioxide 24 mmol/L (22-29); Chloride 108 mmol/L (96-108); Creatinine Clr Calc Pharmacy 62.2; Estimated Glomerular Filt Rate > 60; Ethanol < 10 mg/dL; Glucose Random 151 mg/dL (60-115); Potassium 3.7 mmol/L (3.3-5.1); Sodium 141 mmol/L (135-145); Total Protein 7.1 g/dL (6.5-8.0)
[2023-03-04 15:09] LABS: Acetaminophen LAB < 17 mcg/mL (<30); Salicylate < 5.0 mg/dL (15-30)
[2023-03-04 15:19] LABS: Amphetamine Screen Urine Not Detected (Not Detect); Barbiturates, Urine Not Detected (Not Detect); Benzodiazepines Screen Urine Not Detected (Not Detect); Cannabinoid Screen Urine POSITIVE (Not Detect); Cocaine Screen Urine POSITIVE (Not Detect); Fentanyl, urine POSITIVE (Not Detect); Opiate Screen Urine Not Detected (Not Detect); Phencyclidine Screen Urine Not Detected (Not Detect)
[2023-03-04] MEDS: Naltrexone HCl 50 MG TABLET PO (15:56)
[2023-03-04] MEDS: Nicotine 14 MG PATCH.TD24 TRANSDERMA (16:04)
[2023-03-04] MEDS: Baclofen 10 MG TABLET PO ×2 (16:06→20:15)
[2023-03-04 19:15] LABS: COVID-19 Test Negative (Negative); IDNOW Serial# BCCEAD1C
[2023-03-04 19:23] LABS: Appearance Urine Clear; Color Urine Yellow; Glucose Urine UA Negative (Negative); Leukocyte Esterase Urine Negative (Negative); Nitrite Urine Negative (Negative); PH 5.5 (5.0-9.0); Specific Gravity - Urine 1.025 (1.005-1.025); Urine Blood Negative (Negative); Urine Ketones Negative (Negative); Urine Protein Trace mg/dL (Neg-Trace)
[2023-03-04] MEDS: busPIRone HCl 10 MG TABLET 20 MG PO (20:15)
[2023-03-04] MEDS: risperiDONE 2 MG TABLET PO (20:15)
[2023-03-04] MEDS: chlorproMAZINE HCl 100 MG TABLET PO (20:15)
[2023-03-04] MEDS: Divalproex Sodium ER 500 MG TAB.ER.24H PO (20:15)
--- NOTE | 2023-03-04 23:44 | PC.ADMIT ---
Pt admitted to [facility] [place] [facility]. Pt arrived to the unit at 2205 via wheelchair. 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 Pt placed on 15 minute safety checks. Covid Negative 03/04. Pt came to ER d/t auditory and visual hallucinations. Pt stated the voices are telling her to kill herself. The pt became suicidal and had thoughts of stabbing herself d/t the voices. Pt stated seeing visual hallucinations of men waving at her but aren't sure if they are real. Pt has had numerous psychiatric admissions and numerous rehab/detox admissions. Pt was positive for cocaine, marijuana, and fentanyl. Pt currently lives with sister whom she reports is a good support. Safety tool and treatment plan completed. Legals signed. Oriented to unit. Pt already immunized with flu vaccine for this season. Current smoker. 1PPD. Smoking consult placed.
[2023-03-05 08:19] VITALS: BP 117/69; PULSE 54; RESP 14; TEMP 36.3; O2SAT 99
[2023-03-05] MEDS: Divalproex Sodium ER 500 MG TAB.ER.24H PO ×2 (08:20→21:36)
[2023-03-05] MEDS: risperiDONE 1 MG TABLET PO (08:21)
[2023-03-05] MEDS: Omeprazole 20 MG CAPSULE.DR PO (08:21)
[2023-03-05] MEDS: Baclofen 10 MG TABLET PO ×3 (08:21→21:35)
[2023-03-05] MEDS: Multivitamin TABLET 1 TAB PO (08:21)
[2023-03-05] MEDS: Naltrexone HCl 50 MG TABLET PO (08:21)
[2023-03-05] MEDS: Ferrous Sulfate 324 MG TABLET.DR PO (08:21)
[2023-03-05 08:42] LABS: Estimated Average Glucose 94 mg/dL; Hemoglobin A1c % 4.9 %
[2023-03-05 09:02] LABS: Alanine Aminotransferase 12 U/L (0-31); Albumin Level 4.4 g/dL (3.5-5.0); Alkaline Phosphatase 49 U/L (39-117); Anion Gap 15 (12-20); Aspartate Amino Transferase 15 U/L (5-31); Bilirubin Total 0.4 mg/dL (0.0-1.0); Blood Urea Nitrogen 10 mg/dL (9-16); Calcium 9.7 mg/dL (8.4-10.2); Carbon Dioxide 24 mmol/L (22-29); Chloride 108 mmol/L (96-108); Cholesterol 178 mg/dL; Creatinine Clr Calc Pharmacy 68.1; Estimated Glomerular Filt Rate > 60; Glucose Fasting 92 mg/dL (60-99); HDL Cholesterol 67 mg/dL; LDL Cholesterol Calculated 103 mg/dl; Potassium 4.8 mmol/L (3.3-5.1); Sodium 142 mmol/L (135-145); Total Protein 7.4 g/dL (6.5-8.0); Triglycerides 41 mg/dL
[2023-03-05 09:31] LABS: Folate 11.1 ng/mL (> or = 4.0); Thyroid Stimulating Hormone 0.24 uIU/mL (0.32-4.0); Vitamin B12 412 pg/mL (200-900)
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
[2023-03-05] MEDS: risperiDONE 0.5 MG TABLET PO (16:23)
[2023-03-05 16:52] LABS: UPreg QC Valid YES
[2023-03-05 16:55] LABS: Urine Pregnancy NEGATIVE (NEGATIVE)
[2023-03-05 18:00] VITALS: BP 86/54; PULSE 63; TEMP 36.7; O2SAT 99
[2023-03-05] MEDS: risperiDONE 2 MG TABLET 4 MG PO (21:35)
[2023-03-05] MEDS: chlorproMAZINE HCl 100 MG TABLET PO (21:36)
--- NOTE | 2023-03-06 00:05 | PC.NURSE ---
Patient's BP sitting was noted to be 86/54 with a pulse of 63. Patient denied any dizziness, SOB or chest pain. Patient was encouraged to drink a lot of fluids. Information passed on to babbitt spinner.
[2023-03-06 06:00] VITALS: BP 101/50; PULSE 63; RESP 16
[2023-03-06] MEDS: clonazePAM 0.5 MG TABLET PO (08:04)
[2023-03-06] MEDS: Baclofen 10 MG TABLET PO ×3 (08:04→20:01)
[2023-03-06] MEDS: Omeprazole 20 MG CAPSULE.DR PO (08:05)
[2023-03-06] MEDS: Ferrous Sulfate 324 MG TABLET.DR PO (08:05)
[2023-03-06] MEDS: Naltrexone HCl 50 MG TABLET PO (08:05)
[2023-03-06] MEDS: Multivitamin TABLET 1 TAB PO (08:05)
--- NOTE | 2023-03-06 10:17 | P.PNPSI_ITS ---
Subjective Subjective Date of Service: 03/06/23 Reason For Visit: SI Interim History: met w. patient; discussed with team pt reports slept well; AH remain however they are lessening and not as bothersome. She reports tolerating meds well and overall feeling better. However, she says suicidal thoughts remain, triggered by AH. Mental Status Exam Mental Status Exam Narrative: Pt is alert and oriented; behavior is cooperative and calm; patient is not in distress; dressed in casual attire, wearing a wig, improved hygiene; mood is described as little better and affect congruent; eye contact appropriate; Speech is normal rate, volume and prosody and not pressured; no psychomotor retardation present; thought process is goal directed; Thought content is on dealing with psychotic symptoms, getting treatment; otherwise pertinent to relevant topics; no expressed delusional content, paranoid ideations or grandiosity; SI remains; no HI. Command auditory hallucinations. Patients insight and judgment impaired but improving. Diagnostics Vital Signs (24Hr): Vital Signs - 24 hr 03/05/23 18:00 03/06/23 06:00 Temperature 98.0 F Pulse Rate 63 63 Respiratory Rate 16 Blood Pressure 86/54 L 101/50 L Pulse Oximetry 99 Oxygen Delivery Method Room Air BMI result Body Mass Index 22.8 Labs 03/04/23 14:19 03/05/23 08:13 Labs: Laboratory Results - last 48 hr 03/04/23 03/04/23 03/04/23 14:19 14:19 14:56 WBC 7.4 RBC 4.29 Hgb 11.6 L Hct 36.3 L MCV 84.6 MCH 27.0 MCHC 32.0 RDW 15.5 Plt Count 413 H MPV 9.6 Immature Gran % (Auto) 0.4 Neut % (Auto) 68.5 Lymph % (Auto) 23.2 [place] % (Auto) 7.2 Eos % (Auto) 0.4 Baso % (Auto) 0.3 Lymph # (Auto) 1.7 [place] # (Auto) 0.5 Eos # (Auto) 0.0 Baso # (Auto) 0.0 Abs Immat Gran (auto) 0.03 Absolute Neuts (auto) 5.1 Absolute Nucleated RBC 0.000 Nucleated RBC % (auto) 0.0 Sodium 141 Potassium 3.7 Chloride 108 Carbon Dioxide 24 Anion Gap 13 BUN 11 Creatinine 0.94 Estim Creat Clear Calc 62.2 Estimated GFR > 60 Random Glucose 151 H Fasting Glucose Estimat Average Glucose Hemoglobin A1c % Calcium 9.5 Total Bilirubin 0.3 Direct Bilirubin 0.1 AST 15 ALT 14 Alkaline Phosphatase 45 Total Protein 7.1 Albumin 4.3 Triglycerides Cholesterol LDL Cholesterol, Calc HDL Cholesterol Vitamin B12 Folate TSH Urine Color Urine Appearance Urine pH Ur Specific [place] Urine Protein Urine Glucose (UA) Urine Ketones Urine Blood Urine Nitrite Ur Leukocyte Esterase Urine Test Salicylates < 5.0 L Urine Opiates Screen Not Detected Urine Fentanyl Screen POSITIVE H Acetaminophen < 17 Ur Barbiturates Screen Not Detected Ur Phencyclidine Scrn Not Detected Ur Amphetamines Screen Not Detected U Benzodiazepines Scrn Not Detected Urine Cocaine Screen POSITIVE H U Marijuana (THC) Screen POSITIVE H Ethyl Alcohol < 10 COVID-19 ([facility]) COVID-XDx 03/04/23 03/04/23 03/05/23 14:56 18:40 08:13 WBC RBC Hgb Hct MCV MCH MCHC RDW Plt Count MPV Immature Gran % (Auto) Neut % (Auto) Lymph % (Auto) [place] % (Auto) Eos % (Auto) Baso % (Auto) Lymph # (Auto) [place] # (Auto) Eos # (Auto) Baso # (Auto) Abs Immat Gran (auto) Absolute Neuts (auto) Absolute Nucleated RBC Nucleated RBC % (auto) Sodium 142 Potassium 4.8 D Chloride 108 Carbon Dioxide 24 Anion Gap 15 BUN 10 Creatinine 0.86 Estim Creat Clear Calc 68.1 Estimated GFR > 60 Random Glucose Fasting Glucose 92 Estimat Average Glucose Hemoglobin A1c % Calcium 9.7 Total Bilirubin 0.4 Direct Bilirubin AST 15 ALT 12 Alkaline Phosphatase 49 Total Protein 7.4 Albumin 4.4 Triglycerides 41 Cholesterol 178 LDL Cholesterol, Calc 103 HDL Cholesterol 67 Vitamin B12 412 Folate 11.1 TSH 0.24 L Urine Color Yellow Urine Appearance Clear Urine pH 5.5 Ur Specific [place] 1.025 Urine Protein Trace Urine Glucose (UA) Negative Urine Ketones Negative Urine Blood Negative Urine Nitrite Negative Ur Leukocyte Esterase Negative Urine Test Salicylates Urine Opiates Screen Urine Fentanyl Screen Acetaminophen Ur Barbiturates Screen Ur Phencyclidine Scrn Ur Amphetamines Screen U Benzodiazepines Scrn Urine Cocaine Screen U Marijuana (THC) Screen Ethyl Alcohol COVID-19 ([facility]) Negative COVID-19 [employer] See Note 03/05/23 03/05/23 08:13 16:30 WBC RBC Hgb Hct MCV MCH MCHC RDW Plt Count MPV Immature Gran % (Auto) Neut % (Auto) Lymph % (Auto) [place] % (Auto) Eos % (Auto) Baso % (Auto) Lymph # (Auto) [place] # (Auto) Eos # (Auto) Baso # (Auto) Abs Immat Gran (auto) Absolute Neuts (auto) Absolute Nucleated RBC Nucleated RBC % (auto) Sodium Potassium Chloride Carbon Dioxide Anion Gap BUN Creatinine Estim Creat Clear Calc Estimated GFR Random Glucose Fasting Glucose Estimat Average Glucose 94 Hemoglobin A1c % 4.9 Calcium Total Bilirubin Direct Bilirubin AST ALT Alkaline Phosphatase Total Protein Albumin Triglycerides Cholesterol LDL Cholesterol, Calc HDL Cholesterol Vitamin B12 Folate TSH Urine Color Urine Appearance Urine pH Ur Specific [place] Urine Protein Urine Glucose (UA) Urine Ketones Urine Blood Urine Nitrite Ur Leukocyte Esterase Urine Test NEGATIVE Salicylates Urine Opiates Screen Urine Fentanyl Screen Acetaminophen Ur Barbiturates Screen Ur Phencyclidine Scrn Ur Amphetamines Screen U Benzodiazepines Scrn Urine Cocaine Screen U Marijuana (THC) Screen Ethyl Alcohol COVID-19 ([facility]) COVID-19 Clin Com Medications Medications Current Medications Acetaminophen (Acetaminophen 325 Mg Tablet) 650 mg PO Q6H PRN PRN Reason: Headache/Pain Mild Scale (1-3) Al Hydroxide/Mg Hydroxide (Magnesium Hydrox/Alum Hydrox 30 Ml Oral.Susp) 30 ml PO Q6H PRN PRN Reason: Heartburn/Nausea Albuterol Sulfate (Albuterol Sulfate 90 Mcg 8 Gm Inhaler) 1 - 2 puff INHALE Q4H PRN PRN Reason: wheezing Baclofen (Baclofen 10 Mg Tablet) 10 mg PO TID ON LICENSE OF [facility] Last Admin: 03/06/23 08:04 Dose: 10 mg Chlorpromazine HCl (Chlorpromazine Hcl 100 Mg Tablet) 100 mg PO BEDTIME PRN PRN Reason: insomnia Last Admin: 03/05/23 21:36 Dose: 100 mg Clonazepam (Clonazepam 0.5 Mg Tablet) 0.5 mg PO DAILY ON LICENSE OF [facility] Stop: 03/07/23 23:50 Last Admin: 03/06/23 08:04 Dose: 0.5 mg Divalproex Sodium (Divalproex Sodium Er 500 Mg Tab.Er.24h) 1,000 mg PO BEDTIME ON LICENSE OF [facility] Ferrous Sulfate (Ferrous Sulfate 324 Mg Tablet.Dr) 324 mg PO DAILY ON LICENSE OF [facility] Last Admin: 03/06/23 08:05 Dose: 324 mg Hydroxyzine HCl (Hydroxyzine Hcl 50 Mg Tablet) 50 mg PO Q6H PRN PRN Reason: Anxiety Magnesium Hydroxide (Milk Of Magnesia 30 Ml Oral.Susp) 30 ml PO DAILY PRN PRN Reason: Constipation Multivitamins/Vitamin C (Multivitamin Tablet) 1 tab PO DAILY ON LICENSE OF [facility] Last Admin: 03/06/23 08:05 Dose: 1 tab Naltrexone HCl (Naltrexone Hcl 50 Mg Tablet) 50 mg PO DAILY ON LICENSE OF [facility] Last Admin: 03/06/23 08:05 Dose: 50 mg Omeprazole (Omeprazole 20 Mg Capsule.Dr) 20 mg PO DAILY@0630 ON LICENSE OF [facility] Last Admin: 03/06/23 08:05 Dose: 20 mg Risperidone (Risperidone 2 Mg Tablet) 4 mg PO BEDTIME ON LICENSE OF [facility] Last Admin: 03/05/23 21:35 Dose: 4 mg Risperidone (Risperidone 0.5 Mg Tablet) 0.5 mg PO TID PRN PRN Reason: AH Last Admin: 03/05/23 16:23 Dose: 0.5 mg Trazodone HCl (Trazodone Hcl 50 Mg Tablet) 50 mg PO BEDTIME MRX1 PRN PRN Reason: Insomnia Allergies Allergies Allergy/AdvReac Type Severity Reaction Status Date / Time haloperidol [From HALDOL] Allergy Mild DROWSY Verified 03/04/23 13:08 quetiapine [From Seroquel] Allergy Hallucinati Verified 03/04/23 13:08 ons Assessment & Plan Assessment & Plan (1) Schizoaffective disorder: Status: Chronic Code(s): F25.9 - Schizoaffective disorder, unspecified (2) Chronic post-traumatic stress disorder (PTSD): Status: Acute Code(s): F43.12 - Post-traumatic stress disorder, chronic (3) Cocaine use disorder: Status: Acute Code(s): F14.10 - Cocaine abuse, uncomplicated Plan ?IMPRESSION: Patient is a 42-year-old female with history of schizoaffective disorder, cocaine abuse, PTSD who presents for depression, psychotic symptoms and SI, in face of relapse with cocaine and being off medications.? Patient reports being off medications and abusing crack cocaine shortly after her last discharge from [facility] last month. -patient presents with similar presentation; agrees to get back on Risperdal and Depakote; SI is resolving and patient is future oriented asking for CSS; AH remains but patient has insight to know with part of her illness an wants medication treatment. -will restart Risperdal and Depakote; will hold off scheduling Thorazine since this was newly added and in effort to avoid polypharmacy since patient may not need it; will hold off long-acting injectable for now Hospital course: 03/06 pt remains with AH, command and thus SI however reports symptoms are lessening. Plan: CV Q 15 minute checks Risperdal 4 mg q.h.s.; will shift medication to bedtime to help increase adherence Depakote ER 1000 mg q.h.s.; will shift medication to bedtime both for help with insomnia and to increase adherence -urine Neg; will thus continue with Depakote -will follow-up with Depakote level, LFTs Will keep Thorazine 100 but leave it as a p.r.n. for insomnia; will not schedule to try and avoid polypharmacy and risk of side effects on 2 antipsychotics Will hold off on BuSpar for now Continue naltrexone which was restarted in the ED; despite positive fentanyl patient does not report precipitated withdrawal ? Patient educated on: diagnosis and medication risk/benefits Informed Consent: understands Reason for continued inpatient stay Substantial Risk for: rapid decompensation Time Spent With Patient Time: Total time managing care of this patient today ____ minutes.
[2023-03-06 18:58] VITALS: BP 100/54; PULSE 72; TEMP 36.6
[2023-03-06] MEDS: Divalproex Sodium ER 500 MG TAB.ER.24H 1000 MG PO (20:01)
[2023-03-06] MEDS: risperiDONE 2 MG TABLET 4 MG PO (20:01)
[2023-03-06] MEDS: chlorproMAZINE HCl 100 MG TABLET PO (20:01)
[2023-03-07] MEDS: Naltrexone HCl 50 MG TABLET PO (08:50)
[2023-03-07] MEDS: Multivitamin TABLET 1 TAB PO (08:50)
[2023-03-07] MEDS: Omeprazole 20 MG CAPSULE.DR PO (08:50)
[2023-03-07] MEDS: clonazePAM 0.5 MG TABLET PO (08:50)
[2023-03-07] MEDS: Ferrous Sulfate 324 MG TABLET.DR PO (08:50)
[2023-03-07] MEDS: Baclofen 10 MG TABLET PO ×2 (08:50→19:07)
[2023-03-07 08:58] VITALS: BP 109/70; PULSE 87; RESP 18; TEMP 37.2; O2SAT 99
--- NOTE | 2023-03-07 10:17 | P.PNPSI_ITS ---
Subjective Subjective Date of Service: 03/07/23 Reason For Visit: SI Interim History: pt reports that she's starting to do better; AH remain but are much less and not so bothersome now. SI fully resolved. Pt reports sleeping well. She feels things are going in the right direction. Mental Status Exam Mental Status Exam Narrative: Pt is alert and oriented; behavior is cooperative and calm; patient is not in distress; dressed in casual attire, wearing a wig, improved hygiene; mood is described as little better and affect congruent; eye contact appropriate; Speech is normal rate, volume and prosody and not pressured; no psychomotor retardation present; thought process is goal directed; Thought content is on dealing with psychotic symptoms, getting treatment; otherwise pertinent to relevant topics; no expressed delusional content, paranoid ideations or grandiosity; SI remains; no HI. Command auditory hallucinations. Patients insight and judgment impaired but improving and approaching baseline. Diagnostics Vital Signs (24Hr): Vital Signs - 24 hr 03/06/23 18:58 03/07/23 08:58 Temperature 97.9 F 99.0 F Pulse Rate 72 87 Respiratory Rate 18 Blood Pressure 100/54 L 109/70 Pulse Oximetry 99 Oxygen Delivery Method Room Air BMI result Body Mass Index 22.8 Labs 03/04/23 14:19 03/05/23 08:13 Labs: Laboratory Results - last 48 hr 03/05/23 16:30 Urine Test NEGATIVE Medications Medications Current Medications Acetaminophen (Acetaminophen 325 Mg Tablet) 650 mg PO Q6H PRN PRN Reason: Headache/Pain Mild Scale (1-3) Al Hydroxide/Mg Hydroxide (Magnesium Hydrox/Alum Hydrox 30 Ml Oral.Susp) 30 ml PO Q6H PRN PRN Reason: Heartburn/Nausea Albuterol Sulfate (Albuterol Sulfate 90 Mcg 8 Gm Inhaler) 1 - 2 puff INHALE Q4H PRN PRN Reason: wheezing Baclofen (Baclofen 10 Mg Tablet) 10 mg PO TID YUDITH Last Admin: 03/07/23 08:50 Dose: 10 mg Chlorpromazine HCl (Chlorpromazine Hcl 100 Mg Tablet) 100 mg PO BEDTIME PRN PRN Reason: insomnia Last Admin: 03/06/23 20:01 Dose: 100 mg Clonazepam (Clonazepam 0.5 Mg Tablet) 0.5 mg PO DAILY YUDITH Stop: 03/07/23 23:50 Last Admin: 03/07/23 08:50 Dose: 0.5 mg Divalproex Sodium (Divalproex Sodium Er 500 Mg Tab.Er.24h) 1,000 mg PO BEDTIME [facility] Last Admin: 03/06/23 20:01 Dose: 1,000 mg Ferrous Sulfate (Ferrous Sulfate 324 Mg Tablet.Dr) 324 mg PO DAILY [facility] Last Admin: 03/07/23 08:50 Dose: 324 mg Hydroxyzine HCl (Hydroxyzine Hcl 50 Mg Tablet) 50 mg PO Q6H PRN PRN Reason: Anxiety Magnesium Hydroxide (Milk Of Magnesia 30 Ml Oral.Susp) 30 ml PO DAILY PRN PRN Reason: Constipation Multivitamins/Vitamin C (Multivitamin Tablet) 1 tab PO DAILY [facility] Last Admin: 03/07/23 08:50 Dose: 1 tab Naltrexone HCl (Naltrexone Hcl 50 Mg Tablet) 50 mg PO DAILY [facility] Last Admin: 03/07/23 08:50 Dose: 50 mg Omeprazole (Omeprazole 20 Mg Capsule.Dr) 20 mg PO DAILY@0630 [facility] Last Admin: 03/07/23 08:50 Dose: 20 mg Risperidone (Risperidone 2 Mg Tablet) 4 mg PO BEDTIME [facility] Last Admin: 03/06/23 20:01 Dose: 4 mg Risperidone (Risperidone 0.5 Mg Tablet) 0.5 mg PO TID PRN PRN Reason: AH Last Admin: 03/05/23 16:23 Dose: 0.5 mg Trazodone HCl (Trazodone Hcl 50 Mg Tablet) 50 mg PO BEDTIME MRX1 PRN PRN Reason: Insomnia Allergies Allergies Allergy/AdvReac Type Severity Reaction Status Date / Time haloperidol [From HALDOL] Allergy Mild DROWSY Verified 03/04/23 13:08 quetiapine [From Seroquel] Allergy Hallucinati Verified 03/04/23 13:08 ons Assessment & Plan Assessment & Plan (1) Schizoaffective disorder: Status: Chronic Code(s): F25.9 - Schizoaffective disorder, unspecified (2) Chronic post-traumatic stress disorder (PTSD): Status: Acute Code(s): F43.12 - Post-traumatic stress disorder, chronic (3) Cocaine use disorder: Status: Acute Code(s): F14.10 - Cocaine abuse, uncomplicated Plan ?IMPRESSION: Patient is a 42-year-old female with history of schizoaffective disorder, cocaine abuse, PTSD who presents for depression, psychotic symptoms and SI, in face of relapse with cocaine and being off medications.? Patient reports being off medications and abusing crack cocaine shortly after her last discharge from [facility] last month. -patient presents with similar presentation; agrees to get back on Risperdal and Depakote; SI is resolving and patient is future oriented asking for CSS; AH remains but patient has insight to know with part of her illness an wants medication treatment. -will restart Risperdal and Depakote; will hold off scheduling Thorazine since this was newly added and in effort to avoid polypharmacy since patient may not need it; will hold off long-acting injectable for now Hospital course: 03/06 pt remains with AH, command and thus SI however reports symptoms are lessening. 03/07 pt continues to stabilize; AH remains but much less; no SI. Pt approaching baseline -ordered Valproate level -ordered Lft's/ammonia Plan: CV Q 15 minute checks Continue Risperdal 4 mg q.h.s.; will shift medication to bedtime to help increase adherence Continue Depakote ER 1000 mg q.h.s.; will shift medication to bedtime both for help with insomnia and to increase adherence -urine Neg; will thus continue with Depakote -will follow-up with Depakote level, LFTs Will keep Thorazine 100 but leave it as a p.r.n. for insomnia; will not schedule to try and avoid polypharmacy and risk of side effects on 2 antipsychotics Will hold off on BuSpar for now Continue naltrexone which was restarted in the ED; despite positive fentanyl patient does not report precipitated withdrawal ? Patient educated on: diagnosis and medication risk/benefits Informed Consent: understands Reason for continued inpatient stay Substantial Risk for: rapid decompensation Time Spent With Patient Time: Total time managing care of this patient today ____ minutes.
[2023-03-07 18:00] VITALS: BP 129/86; PULSE 82; RESP 16; TEMP 37; O2SAT 98
[2023-03-07] MEDS: risperiDONE 2 MG TABLET 4 MG PO (19:07)
[2023-03-07] MEDS: Divalproex Sodium ER 500 MG TAB.ER.24H 1000 MG PO (19:07)
[2023-03-08] MEDS: Multivitamin TABLET 1 TAB PO (08:21)
[2023-03-08] MEDS: Omeprazole 20 MG CAPSULE.DR PO (08:21)
[2023-03-08] MEDS: Baclofen 10 MG TABLET PO ×3 (08:21→19:16)
[2023-03-08] MEDS: Naltrexone HCl 50 MG TABLET PO (08:21)
[2023-03-08] MEDS: Ferrous Sulfate 324 MG TABLET.DR PO (08:21)
[2023-03-08 08:23] VITALS: BP 104/61; PULSE 77; RESP 18; TEMP 36.3; O2SAT 99
[2023-03-08 08:38] LABS: Ammonia 35 umol/L (13-55)
[2023-03-08 10:53] LABS: Alanine Aminotransferase 11 U/L (0-31); Albumin Level 4.3 g/dL (3.5-5.0); Alkaline Phosphatase 55 U/L (39-117); Aspartate Amino Transferase 14 U/L (5-31); Bilirubin Direct < 0.2 mg/dL (0.0-0.5); Bilirubin Total 0.2 mg/dL (0.0-1.0); Total Protein 7.4 g/dL (6.5-8.0)
[2023-03-08 11:17] LABS: Valproate 101.9 mcg/mL (50.0-100.0)
[2023-03-08] MEDS: Nicotine 21 MG PATCH.TD24 TRANSDERMA (11:34)
--- NOTE | 2023-03-08 15:16 | P.PNPSI_ITS ---
Subjective Subjective Date of Service: 03/08/23 Reason For Visit: SI Subjective Notes: [facility] Proxy: No Guardianship: No Medical Problems Affecting Mental Status: No Interim History: Pt considering TDN as she feels CSS programs do not want me as I have a mental illness diagnosis. Discussed with pt. Believes she will be prepared for discharge within the next few days. Discussed where she plans to go if not to a program. Discussed noticable progress since tw has met her. Pt smiles, I am glad others recognize that I am trying. Medication Compliance: Yes Side effects from medications: No Attending Groups: Intermittent Review of Systems Acute medical concerns: No Medical Review of Systems: unchanged Mental Status Exam Mental Status Exam Patient Appearance: Appropriate Patient Orientation: Person, Place, Time and Situation Level of Consciousness: Alert Patient Behavior: Talkative and Good Eye Contact Mood Description: Depressed Affect Description: Flat Patient Cognition Impaired: No Ability to Follow Directions: Good Speech Pattern: Spontaneous Speech Memory Description: Episodic Impaired Hallucinations: Auditory Delusions: Present Perceptual Disturbances: Depersonalization Thought Process: Rumination Thought Content: positive for Perseveration and positive for Suicidal Ideation (denies) Depressive Symptoms: Increased Irritability Abnormal Motor Activity Signs and Symptoms: Restlessness Judgement: Fair Diagnostics Vital Signs (24Hr): Vital Signs - 24 hr 03/07/23 18:00 03/08/23 08:23 Temperature 98.6 F 97.4 F Pulse Rate 82 77 Respiratory Rate 16 18 Blood Pressure 129/86 104/61 Pulse Oximetry 98 99 Oxygen Delivery Method Room Air Room Air BMI result Body Mass Index 22.8 Labs 03/04/23 14:19 03/05/23 08:13 Labs: Laboratory Results - last 48 hr 03/08/23 03/08/23 03/08/23 08:02 08:02 08:02 Total Bilirubin 0.2 Direct Bilirubin < 0.2 AST 14 ALT 11 Alkaline Phosphatase 55 Ammonia 35 Total Protein 7.4 Albumin 4.3 Valproic Acid 101.9 H Medications Medications Current Medications Acetaminophen (Acetaminophen 325 Mg Tablet) 650 mg PO Q6H PRN PRN Reason: Headache/Pain Mild Scale (1-3) Al Hydroxide/Mg Hydroxide (Magnesium Hydrox/Alum Hydrox 30 Ml Oral.Susp) 30 ml PO Q6H PRN PRN Reason: Heartburn/Nausea Albuterol Sulfate (Albuterol Sulfate 90 Mcg 8 Gm Inhaler) 1 - 2 puff INHALE Q4H PRN PRN Reason: wheezing Baclofen (Baclofen 10 Mg Tablet) 10 mg PO TID [facility] Last Admin: 03/08/23 14:55 Dose: 10 mg Chlorpromazine HCl (Chlorpromazine Hcl 100 Mg Tablet) 100 mg PO BEDTIME PRN PRN Reason: insomnia Last Admin: 03/06/23 20:01 Dose: 100 mg Divalproex Sodium (Divalproex Sodium Er 500 Mg Tab.Er.24h) 1,000 mg PO BEDTIME [facility] Last Admin: 03/07/23 19:07 Dose: 1,000 mg Ferrous Sulfate (Ferrous Sulfate 324 Mg Tablet.) 324 mg PO DAILY [facility] Last Admin: 03/08/23 08:21 Dose: 324 mg Hydroxyzine HCl (Hydroxyzine Hcl 50 Mg Tablet) 50 mg PO Q6H PRN PRN Reason: Anxiety Magnesium Hydroxide (Milk Of Magnesia 30 Ml Oral.Susp) 30 ml PO DAILY PRN PRN Reason: Constipation Multivitamins/Vitamin C (Multivitamin Tablet) 1 tab PO DAILY [facility] Last Admin: 03/08/23 08:21 Dose: 1 tab Naltrexone HCl (Naltrexone Hcl 50 Mg Tablet) 50 mg PO DAILY [facility] Last Admin: 03/08/23 08:21 Dose: 50 mg Nicotine (Nicotine 21 Mg Patch.Td24) 21 mg TRANSDERMA DAILY [facility] Last Admin: 03/08/23 11:34 Dose: 21 mg Omeprazole (Omeprazole 20 Mg Capsule.) 20 mg PO DAILY@0630 [facility] Last Admin: 03/08/23 08:21 Dose: 20 mg Risperidone (Risperidone 2 Mg Tablet) 4 mg PO BEDTIME [facility] Last Admin: 03/07/23 19:07 Dose: 4 mg Risperidone (Risperidone 0.5 Mg Tablet) 0.5 mg PO TID PRN PRN Reason: AH Last Admin: 03/05/23 16:23 Dose: 0.5 mg Trazodone HCl (Trazodone Hcl 50 Mg Tablet) 50 mg PO BEDTIME MRX1 PRN PRN Reason: Insomnia Allergies Allergies Allergy/AdvReac Type Severity Reaction Status Date / Time haloperidol [From HALDOL] Allergy Mild DROWSY Verified 03/04/23 13:08 quetiapine [From Seroquel] Allergy Hallucinati Verified 03/04/23 13:08 ons Assessment & Plan Assessment & Plan (1) Schizoaffective disorder: Status: Chronic Code(s): F25.9 - Schizoaffective disorder, unspecified (2) Chronic post-traumatic stress disorder (PTSD): Status: Acute Code(s): F43.12 - Post-traumatic stress disorder, chronic (3) Cocaine use disorder: Status: Acute Code(s): F14.10 - Cocaine abuse, uncomplicated Plan ?IMPRESSION: Patient is a 42-year-old female with history of schizoaffective disorder, cocaine abuse, PTSD who presents for depression, psychotic symptoms and SI, in face of relapse with cocaine and being off medications.? Patient reports being off medications and abusing crack cocaine shortly after her last discharge from [facility] last month. -patient presents with similar presentation; agrees to get back on Risperdal and Depakote; SI is resolving and patient is future oriented asking for CSS; AH remains but patient has insight to know with part of her illness an wants medication treatment. -will restart Risperdal and Depakote; will hold off scheduling Thorazine since this was newly added and in effort to avoid polypharmacy since patient may not need it; will hold off long-acting injectable for now Hospital course: 03/06 pt remains with AH, command and thus SI however reports symptoms are lessening. 03/07 pt continues to stabilize; AH remains but much less; no SI. Pt approaching baseline -ordered Valproate level -ordered Lft's/ammonia 03/08 Continue current regime and plan of care Plan: CV Q 15 minute checks Continue Risperdal 4 mg q.h.s.; will shift medication to bedtime to help increase adherence Continue Depakote ER 1000 mg q.h.s.; will shift medication to bedtime both for help with insomnia and to increase adherence -urine Neg; will thus continue with Depakote -will follow-up with Depakote level, LFTs Will keep Thorazine 100 but leave it as a p.r.n. for insomnia; will not schedule to try and avoid polypharmacy and risk of side effects on 2 antipsychotics Will hold off on BuSpar for now Continue naltrexone which was restarted in the ED; despite positive fentanyl patient does not report precipitated withdrawal ? Patient educated on: therapeutic strategies Informed Consent: understands Reason for continued inpatient stay Substantial Risk for: rapid decompensation Time Spent With Patient Time: Total time managing care of this patient today ____ minutes.
[2023-03-08 16:41] VITALS: BP 110/63; PULSE 64; TEMP 36.5
[2023-03-08] MEDS: risperiDONE 2 MG TABLET 4 MG PO (19:16)
[2023-03-08] MEDS: Divalproex Sodium ER 500 MG TAB.ER.24H 1000 MG PO (19:16)
[2023-03-09] MEDS: Omeprazole 20 MG CAPSULE.DR PO (07:03)
[2023-03-09] MEDS: Baclofen 10 MG TABLET PO ×3 (08:40→17:56)
[2023-03-09] MEDS: Multivitamin TABLET 1 TAB PO (08:40)
[2023-03-09] MEDS: Ferrous Sulfate 324 MG TABLET.DR PO (08:40)
[2023-03-09] MEDS: Naltrexone HCl 50 MG TABLET PO (08:40)
[2023-03-09] MEDS: Nicotine 21 MG PATCH.TD24 TRANSDERMA (08:40)
[2023-03-09 08:44] VITALS: BP 108/69; PULSE 97; RESP 18; TEMP 36.4; O2SAT 95
[2023-03-09 17:48] VITALS: BP 117/62; PULSE 70; TEMP 37.1
[2023-03-09] MEDS: risperiDONE 2 MG TABLET 4 MG PO (17:56)
[2023-03-09] MEDS: chlorproMAZINE HCl 100 MG TABLET PO (17:56)
[2023-03-09] MEDS: Divalproex Sodium ER 500 MG TAB.ER.24H 1000 MG PO (17:56)
--- NOTE | 2023-03-09 21:34 | P.PNPSI_ITS ---
Subjective Subjective Date of Service: 03/09/23 Reason For Visit: SI Interim History: Patient seen and discussed. She reports she has been improving with the medication adjustments. She says meds helping with hallucinations and anxiety. She denies side effects. She says I don't have any more hallucinations. Denies SI. Engaged in milieu. Attending groups. Review of Systems Review of Systems Yes all other systems are reviewed and are negative Mental Status Exam Mental Status Exam Narrative: Pt is alert and oriented; behavior is cooperative and calm; patient is not in distress; dressed in casual attire, wearing a wig, improved hygiene; mood is described as little better and affect congruent; eye contact appropriate; Speech is normal rate, volume and prosody and not pressured; no psychomotor retardation present; thought process is goal directed; Thought content is on dealing with psychotic symptoms, getting treatment; otherwise pertinent to relevant topics; no expressed delusional content, paranoid ideations or grandiosity; SI remains; no HI. Command auditory hallucinations. Patients insight and judgment impaired but improving and approaching baseline. Patient Appearance: Appropriate Patient Orientation: Person, Place, Time and Situation Level of Consciousness: Alert Patient Behavior: Talkative and Good Eye Contact Mood Description: Depressed Affect Description: Flat Patient Cognition Impaired: No Ability to Follow Directions: Good Speech Pattern: Spontaneous Speech Memory Description: Episodic Impaired Diagnostics Vital Signs (24Hr): Vital Signs - 24 hr 03/09/23 08:44 03/09/23 17:48 Temperature 97.6 F 98.8 F Pulse Rate 97 70 Respiratory Rate 18 Blood Pressure 108/69 117/62 Pulse Oximetry 95 Oxygen Delivery Method Room Air BMI result Body Mass Index 22.8 Labs 03/04/23 14:19 03/05/23 08:13 Labs: Laboratory Results - last 48 hr 03/08/23 03/08/23 03/08/23 08:02 08:02 08:02 Total Bilirubin 0.2 Direct Bilirubin < 0.2 AST 14 ALT 11 Alkaline Phosphatase 55 Ammonia 35 Total Protein 7.4 Albumin 4.3 Valproic Acid 101.9 H Medications Medications Current Medications Acetaminophen (Acetaminophen 325 Mg Tablet) 650 mg PO Q6H PRN PRN Reason: Headache/Pain Mild Scale (1-3) Al Hydroxide/Mg Hydroxide (Magnesium Hydrox/Alum Hydrox 30 Ml Oral.Susp) 30 ml PO Q6H PRN PRN Reason: Heartburn/Nausea Albuterol Sulfate (Albuterol Sulfate 90 Mcg 8 Gm Inhaler) 1 - 2 puff INHALE Q4H PRN PRN Reason: wheezing Baclofen (Baclofen 10 Mg Tablet) 10 mg PO TID [facility] Last Admin: 03/09/23 17:56 Dose: 10 mg Chlorpromazine HCl (Chlorpromazine Hcl 100 Mg Tablet) 100 mg PO BEDTIME PRN PRN Reason: insomnia Last Admin: 03/09/23 17:56 Dose: 100 mg Divalproex Sodium (Divalproex Sodium Er 500 Mg Tab.Er.24h) 1,000 mg PO BEDTIME [facility] Last Admin: 03/09/23 17:56 Dose: 1,000 mg Ferrous Sulfate (Ferrous Sulfate 324 Mg Tablet.) 324 mg PO DAILY [facility] Last Admin: 03/09/23 08:40 Dose: 324 mg Hydroxyzine HCl (Hydroxyzine Hcl 50 Mg Tablet) 50 mg PO Q6H PRN PRN Reason: Anxiety Magnesium Hydroxide (Milk Of Magnesia 30 Ml Oral.Susp) 30 ml PO DAILY PRN PRN Reason: Constipation Multivitamins/Vitamin C (Multivitamin Tablet) 1 tab PO DAILY [facility] Last Admin: 03/09/23 08:40 Dose: 1 tab Naltrexone HCl (Naltrexone Hcl 50 Mg Tablet) 50 mg PO DAILY [facility] Last Admin: 03/09/23 08:40 Dose: 50 mg Nicotine (Nicotine 21 Mg Patch.Td24) 21 mg TRANSDERMA DAILY [facility] Last Admin: 03/09/23 08:40 Dose: 21 mg Omeprazole (Omeprazole 20 Mg Capsule.) 20 mg PO DAILY@0630 [facility] Last Admin: 03/09/23 07:03 Dose: 20 mg Risperidone (Risperidone 2 Mg Tablet) 4 mg PO BEDTIME [facility] Last Admin: 03/09/23 17:56 Dose: 4 mg Risperidone (Risperidone 0.5 Mg Tablet) 0.5 mg PO TID PRN PRN Reason: AH Last Admin: 03/05/23 16:23 Dose: 0.5 mg Trazodone HCl (Trazodone Hcl 50 Mg Tablet) 50 mg PO BEDTIME MRX1 PRN PRN Reason: Insomnia Allergies Allergies Allergy/AdvReac Type Severity Reaction Status Date / Time haloperidol [From HALDOL] Allergy Mild DROWSY Verified 03/04/23 13:08 quetiapine [From Seroquel] Allergy Hallucinati Verified 03/04/23 13:08 ons Assessment & Plan Assessment & Plan (1) Schizoaffective disorder: Status: Chronic Code(s): F25.9 - Schizoaffective disorder, unspecified (2) Chronic post-traumatic stress disorder (PTSD): Status: Acute Code(s): F43.12 - Post-traumatic stress disorder, chronic (3) Cocaine use disorder: Status: Acute Code(s): F14.10 - Cocaine abuse, uncomplicated Plan ?IMPRESSION: Patient is a 42-year-old female with history of schizoaffective disorder, cocaine abuse, PTSD who presents for depression, psychotic symptoms and SI, in face of relapse with cocaine and being off medications.? Patient reports being off medications and abusing crack cocaine shortly after her last discharge from [facility] last month. -patient presents with similar presentation; agrees to get back on Risperdal and Depakote; SI is resolving and patient is future oriented asking for CSS; AH remains but patient has insight to know with part of her illness an wants medication treatment. -will restart Risperdal and Depakote; will hold off scheduling Thorazine since this was newly added and in effort to avoid polypharmacy since patient may not need it; will hold off long-acting injectable for now Hospital course: 03/06 pt remains with AH, command and thus SI however reports symptoms are lessening. 03/07 pt continues to stabilize; AH remains but much less; no SI. Pt approaching baseline -ordered Valproate level -ordered Lft's/ammonia 03/08 Continue current regime and plan of care 03/09 Continue current regime and plan of care Plan: CV Q 15 minute checks Continue Risperdal 4 mg q.h.s.; will shift medication to bedtime to help increase adherence Continue Depakote ER 1000 mg q.h.s.; will shift medication to bedtime both for help with insomnia and to increase adherence -urine Neg; will thus continue with Depakote -will follow-up with Depakote level, LFTs Will keep Thorazine 100 but leave it as a p.r.n. for insomnia; will not schedule to try and avoid polypharmacy and risk of side effects on 2 antipsychotics Will hold off on BuSpar for now Continue naltrexone which was restarted in the ED; despite positive fentanyl patient does not report precipitated withdrawal ? Reason for continued inpatient stay Substantial Risk for: harm to self, inability to function and rapid decompensation Time Spent With Patient Time: Total time managing care of this patient today ____ minutes.
[2023-03-10] MEDS: Omeprazole 20 MG CAPSULE.DR PO (09:01)
[2023-03-10] MEDS: Baclofen 10 MG TABLET PO ×3 (09:01→19:26)
[2023-03-10] MEDS: Naltrexone HCl 50 MG TABLET PO (09:01)
[2023-03-10] MEDS: Ferrous Sulfate 324 MG TABLET.DR PO (09:01)
[2023-03-10] MEDS: Nicotine 21 MG PATCH.TD24 TRANSDERMA (09:01)
[2023-03-10] MEDS: Multivitamin TABLET 1 TAB PO (09:01)
[2023-03-10 09:05] VITALS: BP 107/99; PULSE 94; RESP 18; TEMP 36.4; O2SAT 99
--- NOTE | 2023-03-10 09:24 | P.PNPSI_ITS ---
Subjective Subjective Date of Service: 03/10/23 Reason For Visit: SI Interim History: Patient seen and discussed. She reports she has been improving with the medication adjustments. She says meds helping with hallucinations and anxiety. She denies side effects. No hallucinations Denies SI. Engaged in milieu. Attending groups. Review of Systems Review of Systems Yes all other systems are reviewed and are negative Mental Status Exam Mental Status Exam Narrative: Pt is alert and oriented; behavior is cooperative and calm; patient is not in distress; dressed in casual attire, wearing a wig, improved hygiene; mood is d escribed as little better and affect congruent; eye contact appropriate; Speech is normal rate, volume and prosody and not pressured; no psychomotor retardation present; thought process is goal directed; Thought content is on dealing with psychotic symptoms, getting treatment; otherwise pertinent to relevant topics; no expressed delusional content, paranoid ideations or grandiosity; SI remains; no HI. Command auditory hallucinations. Patients insight and judgment impaired but improving and approaching baseline. Patient Appearance: Appropriate Patient Orientation: Person, Place, Time and Situation Level of Consciousness: Alert Patient Behavior: Talkative and Good Eye Contact Mood Description: Depressed Affect Description: Flat Patient Cognition Impaired: No Ability to Follow Directions: Good Speech Pattern: Spontaneous Speech Memory Description: Episodic Impaired Diagnostics Vital Signs (24Hr): Vital Signs - 24 hr 03/09/23 17:48 Temperature 98.8 F Pulse Rate 70 Blood Pressure 117/62 BMI result Body Mass Index 22.8 Labs 03/04/23 14:19 03/05/23 08:13 Labs: Laboratory Results - last 48 hr 03/08/23 03/08/23 08:02 08:02 Total Bilirubin 0.2 Direct Bilirubin < 0.2 AST 14 ALT 11 Alkaline Phosphatase 55 Total Protein 7.4 Albumin 4.3 Valproic Acid 101.9 H Medications Medications Current Medications Acetaminophen (Acetaminophen 325 Mg Tablet) 650 mg PO Q6H PRN PRN Reason: Headache/Pain Mild Scale (1-3) Al Hydroxide/Mg Hydroxide (Magnesium Hydrox/Alum Hydrox 30 Ml Oral.Susp) 30 ml PO Q6H PRN PRN Reason: Heartburn/Nausea Albuterol Sulfate (Albuterol Sulfate 90 Mcg 8 Gm Inhaler) 1 - 2 puff INHALE Q4H PRN PRN Reason: wheezing Baclofen (Baclofen 10 Mg Tablet) 10 mg PO TID [facility] Last Admin: 03/10/23 09:01 Dose: 10 mg Chlorpromazine HCl (Chlorpromazine Hcl 100 Mg Tablet) 100 mg PO BEDTIME PRN PRN Reason: insomnia Last Admin: 03/09/23 17:56 Dose: 100 mg Divalproex Sodium (Divalproex Sodium Er 500 Mg Tab.Er.24h) 1,000 mg PO BEDTIME [facility] Last Admin: 03/09/23 17:56 Dose: 1,000 mg Ferrous Sulfate (Ferrous Sulfate 324 Mg Tablet.) 324 mg PO DAILY [facility] Last Admin: 03/10/23 09:01 Dose: 324 mg Hydroxyzine HCl (Hydroxyzine Hcl 50 Mg Tablet) 50 mg PO Q6H PRN PRN Reason: Anxiety Magnesium Hydroxide (Milk Of Magnesia 30 Ml Oral.Susp) 30 ml PO DAILY PRN PRN Reason: Constipation Multivitamins/Vitamin C (Multivitamin Tablet) 1 tab PO DAILY [facility] Last Admin: 03/10/23 09:01 Dose: 1 tab Naltrexone HCl (Naltrexone Hcl 50 Mg Tablet) 50 mg PO DAILY [facility] Last Admin: 03/10/23 09:01 Dose: 50 mg Nicotine (Nicotine 21 Mg Patch.Td24) 21 mg TRANSDERMA DAILY [facility] Last Admin: 03/10/23 09:01 Dose: 21 mg Omeprazole (Omeprazole 20 Mg Capsule.Dr) 20 mg PO DAILY@0630 [facility] Last Admin: 03/10/23 09:01 Dose: 20 mg Risperidone (Risperidone 2 Mg Tablet) 4 mg PO BEDTIME [facility] Last Admin: 03/09/23 17:56 Dose: 4 mg Risperidone (Risperidone 0.5 Mg Tablet) 0.5 mg PO TID PRN PRN Reason: AH Last Admin: 03/05/23 16:23 Dose: 0.5 mg Trazodone HCl (Trazodone Hcl 50 Mg Tablet) 50 mg PO BEDTIME MRX1 PRN PRN Reason: Insomnia Allergies Allergies Allergy/AdvReac Type Severity Reaction Status Date / Time haloperidol [From HALDOL] Allergy Mild DROWSY Verified 03/04/23 13:08 quetiapine [From Seroquel] Allergy Hallucinati Verified 03/04/23 13:08 ons Assessment & Plan Assessment & Plan (1) Schizoaffective disorder: Status: Chronic Code(s): F25.9 - Schizoaffective disorder, unspecified (2) Chronic post-traumatic stress disorder (PTSD): Status: Acute Code(s): F43.12 - Post-traumatic stress disorder, chronic (3) Cocaine use disorder: Status: Acute Code(s): F14.10 - Cocaine abuse, uncomplicated Plan ?IMPRESSION: Patient is a 42-year-old female with history of schizoaffective disorder, cocaine abuse, PTSD who presents for depression, psychotic symptoms and SI, in face of relapse with cocaine and being off medications.? Patient reports being off medications and abusing crack cocaine shortly after her last discharge from [facility] last month. -patient presents with similar presentation; agrees to get back on Risperdal and Depakote; SI is resolving and patient is future oriented asking for CSS; AH remains but patient has insight to know with part of her illness an wants medication treatment. -will restart Risperdal and Depakote; will hold off scheduling Thorazine since this was newly added and in effort to avoid polypharmacy since patient may not need it; will hold off long-acting injectable for now Hospital course: 03/06 pt remains with AH, command and thus SI however reports symptoms are lessening. 03/07 pt continues to stabilize; AH remains but much less; no SI. Pt approaching baseline -ordered Valproate level -ordered Lft's/ammonia 03/08 Continue current regime and plan of care 03/09 Continue current regime and plan of care 03/10: Continue tx plan. Plan: CV Q 15 minute checks Continue Risperdal 4 mg q.h.s.; will shift medication to bedtime to help increase adherence Continue Depakote ER 1000 mg q.h.s.; will shift medication to bedtime both for help with insomnia and to increase adherence -urine Neg; will thus continue with Depakote -will follow-up with Depakote level, LFTs Will keep Thorazine 100 but leave it as a p.r.n. for insomnia; will not schedule to try and avoid polypharmacy and risk of side effects on 2 antipsychotics Will hold off on BuSpar for now Continue naltrexone which was restarted in the ED; despite positive fentanyl patient does not report precipitated withdrawal ? Reason for continued inpatient stay Substantial Risk for: harm to self and rapid decompensation Time Spent With Patient Time: Total time managing care of this patient today ____ minutes.
[2023-03-10 18:33] VITALS: BP 119/76; PULSE 67; TEMP 36.5
[2023-03-10] MEDS: Divalproex Sodium ER 500 MG TAB.ER.24H 1000 MG PO (19:25)
[2023-03-10] MEDS: chlorproMAZINE HCl 100 MG TABLET PO (19:25)
[2023-03-10] MEDS: risperiDONE 2 MG TABLET 4 MG PO (19:26)
[2023-03-11] MEDS: Baclofen 10 MG TABLET PO (09:08)
[2023-03-11] MEDS: Multivitamin TABLET 1 TAB PO (09:08)
[2023-03-11] MEDS: Omeprazole 20 MG CAPSULE.DR PO (09:08)
[2023-03-11] MEDS: Ferrous Sulfate 324 MG TABLET.DR PO (09:08)
[2023-03-11] MEDS: Naltrexone HCl 50 MG TABLET PO (09:08)
[2023-03-11] MEDS: Nicotine 21 MG PATCH.TD24 TRANSDERMA (09:08)
[2023-03-11 10:47] VITALS: BP 119/70; PULSE 78; RESP 14; TEMP 36.4; O2SAT 99
--- NOTE | 2023-03-11 11:31 | P.DS_ITS ---
DS: Providers Provider Date of Service: 03/11/23 Date of admission: 03/04/23 21:12 Date of discharge: 03/11/23 Primary care physician: Unknown Physician Admitting clinician: Charlie Johnson Attending physician on discharge: Charlie Johnson DS: Diagnosis Discharge Diagnosis (1) Schizoaffective disorder: Status: Chronic (2) Chronic post-traumatic stress disorder (PTSD): Status: Acute (3) Cocaine use disorder: Status: Acute DS: Medications Discharge Medications Home Medications: Previous Rx's Medication Instructions Recorded albuterol sulfate 90 mcg/actuation 1 - 2 puff inhalation Q4H PRN 03/11/23 aerosol inhaler (ProAir HFA) wheezing 30 days #1 inhaler baclofen 10 mg tablet 10 mg PO TID 30 days #90 tabs 03/11/23 chlorpromazine 100 mg tablet 100 mg PO BEDTIME 30 days #30 tabs 03/11/23 divalproex 500 mg tablet,extended 1,000 mg PO BEDTIME 30 days #60 03/11/23 release 24 hr tabs ferrous sulfate 325 mg (65 mg 325 mg PO DAILY 30 days #30 tabs 03/11/23 iron) tablet multivitamin with folic acid 400 1 tab PO DAILY 30 days #30 tabs 03/11/23 mcg tablet (Daily-Emiliano (with folic acid)) naltrexone 50 mg tablet 50 mg PO DAILY 30 days #30 tabs 03/11/23 nicotine 21 mg/24 hr daily 21 mg transdermal DAILY PRN 03/11/23 transdermal patch smoking cessation 28 days #28 ea pantoprazole 40 mg tablet,delayed 40 mg PO DAILY 30 days #30 tabs 03/11/23 release risperidone 4 mg tablet 4 mg PO BEDTIME 30 days #30 tabs 03/11/23 Mental Status Exam Mental Status Exam Narrative: Pt is alert and oriented; behavior is cooperative and calm; patient is not in distress; dressed in casual attire, wearing a wig, good hygiene; mood is described as good and affect congruent; eye contact appropriate; Speech is normal rate, volume and prosody and not pressured; no psychomotor retardation present; thought process is goal directed; Thought content is on aftercare plans, staying sober; otherwise pertinent to relevant topics; no expressed delusional content, paranoid ideations or grandiosity; SI remains; no HI. Command auditory hallucinations. Patients insight and judgment are fair. Data Data Completed and Pending Completed studies during hospitalization [Text1]: 03/04/23 03/04/23 03/04/23 14:19 14:19 14:56 WBC 7.4 RBC 4.29 Hgb 11.6 L Hct 36.3 L MCV 84.6 MCH 27.0 MCHC 32.0 RDW 15.5 Plt Count 413 H MPV 9.6 Immature Gran % (Auto) 0.4 Neut % (Auto) 68.5 Lymph % (Auto) 23.2 Roberts % (Auto) 7.2 Eos % (Auto) 0.4 Baso % (Auto) 0.3 Lymph # (Auto) 1.7 Roberts # (Auto) 0.5 Eos # (Auto) 0.0 Baso # (Auto) 0.0 Abs Immat Gran (auto) 0.03 Absolute Neuts (auto) 5.1 Absolute Nucleated RBC 0.000 Nucleated RBC % (auto) 0.0 Sodium 141 Potassium 3.7 Chloride 108 Carbon Dioxide 24 Anion Gap 13 BUN 11 Creatinine 0.94 Estim Creat Clear Calc 62.2 Estimated GFR > 60 Random Glucose 151 H Fasting Glucose Estimat Average Glucose Hemoglobin A1c % Calcium 9.5 Total Bilirubin 0.3 Direct Bilirubin 0.1 AST 15 ALT 14 Alkaline Phosphatase 45 Ammonia Total Protein 7.1 Albumin 4.3 Triglycerides Cholesterol LDL Cholesterol, Calc HDL Cholesterol Vitamin B12 Folate TSH Urine Color Urine Appearance Urine pH Ur Specific [place] Urine Protein Urine Glucose (UA) Urine Ketones Urine Blood Urine Nitrite Ur Leukocyte Esterase Urine Test Salicylates < 5.0 L Urine Opiates Screen Not Detected Urine Fentanyl Screen POSITIVE H Acetaminophen < 17 Ur Barbiturates Screen Not Detected Valproic Acid Ur Phencyclidine Scrn Not Detected Ur Amphetamines Screen Not Detected U Benzodiazepines Scrn Not Detected Urine Cocaine Screen POSITIVE H U Marijuana (THC) Screen POSITIVE H Ethyl Alcohol < 10 COVID-19 ([facility]) COVID-19 Clin Com 03/04/23 03/04/23 03/05/23 14:56 18:40 08:13 WBC RBC Hgb Hct MCV MCH MCHC RDW Plt Count MPV Immature Gran % (Auto) Neut % (Auto) Lymph % (Auto) Roberts % (Auto) Eos % (Auto) Baso % (Auto) Lymph # (Auto) Roberts # (Auto) Eos # (Auto) Baso # (Auto) Abs Immat Gran (auto) Absolute Neuts (auto) Absolute Nucleated RBC Nucleated RBC % (auto) Sodium 142 Potassium 4.8 D Chloride 108 Carbon Dioxide 24 Anion Gap 15 BUN 10 Creatinine 0.86 Estim Creat Clear Calc 68.1 Estimated GFR > 60 Random Glucose Fasting Glucose 92 Estimat Average Glucose Hemoglobin A1c % Calcium 9.7 Total Bilirubin 0.4 Direct Bilirubin AST 15 ALT 12 Alkaline Phosphatase 49 Ammonia Total Protein 7.4 Albumin 4.4 Triglycerides 41 Cholesterol 178 LDL Cholesterol, Calc 103 HDL Cholesterol 67 Vitamin B12 412 Folate 11.1 TSH 0.24 L Urine Color Yellow Urine Appearance Clear Urine pH 5.5 Ur Specific [place] 1.025 Urine Protein Trace Urine Glucose (UA) Negative Urine Ketones Negative Urine Blood Negative Urine Nitrite Negative Ur Leukocyte Esterase Negative Urine Test Salicylates Urine Opiates Screen Urine Fentanyl Screen Acetaminophen Ur Barbiturates Screen Valproic Acid Ur Phencyclidine Scrn Ur Amphetamines Screen U Benzodiazepines Scrn Urine Cocaine Screen U Marijuana (THC) Screen Ethyl Alcohol COVID-19 ([facility]) Negative [facility] See Note 03/05/23 03/05/23 03/08/23 08:13 16:30 08:02 WBC RBC Hgb Hct MCV MCH MCHC RDW Plt Count MPV Immature Gran % (Auto) Neut % (Auto) Lymph % (Auto) Roberts % (Auto) Eos % (Auto) Baso % (Auto) Lymph # (Auto) Roberts # (Auto) Eos # (Auto) Baso # (Auto) Abs Immat Gran (auto) Absolute Neuts (auto) Absolute Nucleated RBC Nucleated RBC % (auto) Sodium Potassium Chloride Carbon Dioxide Anion Gap BUN Creatinine Estim Creat Clear Calc Estimated GFR Random Glucose Fasting Glucose Estimat Average Glucose 94 Hemoglobin A1c % 4.9 Calcium Total Bilirubin 0.2 Direct Bilirubin < 0.2 AST 14 ALT 11 Alkaline Phosphatase 55 Ammonia Total Protein 7.4 Albumin 4.3 Triglycerides Cholesterol LDL Cholesterol, Calc HDL Cholesterol Vitamin B12 Folate TSH Urine Color Urine Appearance Urine pH Ur Specific [place] Urine Protein Urine Glucose (UA) Urine Ketones Urine Blood Urine Nitrite Ur Leukocyte Esterase Urine Test NEGATIVE Salicylates Urine Opiates Screen Urine Fentanyl Screen Acetaminophen Ur Barbiturates Screen Valproic Acid Ur Phencyclidine Scrn Ur Amphetamines Screen U Benzodiazepines Scrn Urine Cocaine Screen U Marijuana (THC) Screen Ethyl Alcohol COVID-19 ([facility]) COVID-[employer] 03/08/23 03/08/23 08:02 08:02 WBC RBC Hgb Hct MCV MCH MCHC RDW Plt Count MPV Immature Gran % (Auto) Neut % (Auto) Lymph % (Auto) Roberts % (Auto) Eos % (Auto) Baso % (Auto) Lymph # (Auto) Roberts # (Auto) Eos # (Auto) Baso # (Auto) Abs Immat Gran (auto) Absolute Neuts (auto) Absolute Nucleated RBC Nucleated RBC % (auto) Sodium Potassium Chloride Carbon Dioxide Anion Gap BUN Creatinine Estim Creat Clear Calc Estimated GFR Random Glucose Fasting Glucose Estimat Average Glucose Hemoglobin A1c % Calcium Total Bilirubin Direct Bilirubin AST ALT Alkaline Phosphatase Ammonia 35 Total Protein Albumin Triglycerides Cholesterol LDL Cholesterol, Calc HDL Cholesterol Vitamin B12 Folate TSH Urine Color Urine Appearance Urine pH Ur Specific [place] Urine Protein Urine Glucose (UA) Urine Ketones Urine Blood Urine Nitrite Ur Leukocyte Esterase Urine Test Salicylates Urine Opiates Screen Urine Fentanyl Screen Acetaminophen Ur Barbiturates Screen Valproic Acid 101.9 H Ur Phencyclidine Scrn Ur Amphetamines Screen U Benzodiazepines Scrn Urine Cocaine Screen U Marijuana (THC) Screen Ethyl Alcohol COVID-19 ([facility]) COVID-19 Clin Com DS: Summary Hospital Course Hospital Course: Patient is a 42-year-old female with history of schizoaffective disorder, cocaine abuse, PTSD who presents for depression, psychotic symptoms, delusional thinking, auditory hallucinations and SI, in face of relapse with cocaine and being off medications.? Patient reports being off medications and abusing crack cocaine shortly after her last discharge from last month. Patient presents with similar presentation. On admission she is calm; while AH and SI remain, she has insight to know with part of her illness an wants medication treatment. Pt agreed to get back on Risperdal and Depakote which had been restarted and consolidated to bedtime for increased adherence. Patient's lab work, Depakote level checked and was within normal limits. Thorazine was initially changed to a p.r.n. to avoid polypharmacy, however patient wanted to remain on this despite the increased risk of side effects, saying it was helpful; BuSpar was not restarted at patient's mood and anxiety were fine without it. [employer] discussed long-acting injectable which patient got before she was ambivalent about getting it again so she stuck with p.o. meds. Over the next few days patient remained calm, in good behavioral and impulse control. She reported that symptoms continued to lessen until they finally fully resolved and she was without any psychotic symptoms and without any suicidal ideation. Patient's mood improved. Initially she wanted to go to a [facility] however she later shared ambivalence about attending and just wanted discharge. Patient remained in good behavioral and impulse control, appropriate with peers and staff, in a good mood and without without any psychotic symptoms. She was future oriented. She of course remains vulnerable to both relapse and dysregulation however this is a chronic issue that, of which she is well aware, and will not resolve with longer stay on inpatient unit but will require consistent outpatient work. Patient is not in imminent risk for harm to self or others and her request for discharge honored. Time spent discussing smoking cessation with patient: 3 to 10 minutes Status at Discharge Functional status at discharge: independent ambulation Overall status at discharge: patient is back to baseline Time Spent with Patient Time attestation: Total time managing care of this patient today ____ minutes. Time spent: Less than 30 minutes Discharge Plan Discharge Anticipated Discharge Date/Time: 03/11/23 11:45 Patient Disposition: Home, Self-Care Discharge Diagnosis: schizoaffective disorder, bipolar type, in full remission Referrals: Intensive Outpatient Program (IOP) Intake: Zari Davis [Other] - 04/04/23 2:00 pm [facility] [Other] - 1 Week (OFFICE WILL CALL HER WITH F/UP APPOINTMENT.) Discharge Medications: New divalproex 500 mg Tablet Extended Release 24 Hr 1,000 mg PO BEDTIME 30 Days Qty: 60 1RF nicotine 21 mg/24 hr Patch 24 Hour 21 mg transdermal DAILY PRN (Reason: smoking cessation) 28 Days Qty: 28 1RF Continued chlorpromazine 100 mg Tablet 100 mg PO BEDTIME 30 Days Qty: 30 0RF pantoprazole 40 mg tablet,delayed release (DR/EC) 40 mg PO DAILY 30 Days Qty: 30 0RF ferrous sulfate 325 mg (65 mg iron) tablet 325 mg PO DAILY 30 Days Qty: 30 0RF albuterol sulfate [ProAir HFA] 90 mcg/actuation HFA aerosol inhaler 1 - 2 puff inhalation Q4H PRN (Reason: wheezing) 30 Days Qty: 1 1RF multivitamin with folic acid [Daily-Emiliano (with folic acid)] 400 mcg tablet 1 tab PO DAILY 30 Days Qty: 30 1RF Changed risperidone 4 mg tablet 4 mg PO BEDTIME 30 Days Qty: 30 1RF naltrexone 50 mg tablet 50 mg PO DAILY 30 Days Qty: 30 1RF baclofen 10 mg tablet 10 mg PO TID 30 Days Qty: 90 1RF Discontinued risperidone 1 mg Tablet 1 mg PO DAILY 30 Days Qty: 30 0RF risperidone 0.5 mg Tablet 0.5 mg PO BID PRN (Reason: AH) 30 Days Qty: 60 0RF hydroxyzine HCl 50 mg tablet 1 tab PO BID PRN (Reason: Anxiety) 30 Days Qty: 60 0RF buspirone 10 mg tablet 2 tab PO BEDTIME 30 Days Qty: 60 0RF divalproex 500 mg tablet extended release 24 hr 500 mg PO BID Discharge Orders: Discharge Order (Routine); Ordered 03/11/23 Ordered By: Charlie Johnson Diet: Regular diet Activity on Discharge: As tolerated Stand Alone Forms: Patient Portal Discharge page, Community Support Care Plan Goals: Maintain mood and safe behaviors Take medications as prescribed Continue to pursue sobriety Practice coping skills Continue with outpatient providers and reach out to them as needed Health Concerns: Mood stability and behaviors Sobriety Anemia GERD Plan of Treatment: Follow up with your PCP, psychiatric provider and other outpatient providers regarding above concerns Take medications as prescribed Assessment: Risk assessment at time of discharge:? Patient was interviewed prior to discharge and found to be fully oriented and without any SI or HI. Patient has insight and demonstrates good judgment in terms of wanting to pursue treatment. Patient is not in imminent risk of harm to self or others and has a safety plan that includes presenting to the closest ER or calling 911 if feeling unsafe.? Patient has been observed closely by nursing and unit staff throughout admission; patient has not engaged in any behaviors that suggest dangerousness to self or others and has demonstrated appropriate behaviors and impulse control Discharge Date/Time: 03/11/23 11:57
[2023-03-11] MEDS: Naloxone HCl Nasal TAKE HOME 4 MG SPRAY NOSTRILALT (11:47)
== END 2023-03-11 11:57 | disposition home or self-care (01) | DRG 885 ==
LOC: HO.ED 14:01 → HO.PM5 21:20
PROVIDERS: Physician Assistant; Social Worker; Admitting Provider Psychiatry & Neurology Psychiatry; Emergency Provider Emergency Medicine; Visit Provider Psychiatry & Neurology Psychiatry
DX: F25.0 Schizoaffective disorder, bipolar type (principal); R45.851 Suicidal ideations; F14.20 Cocaine dependence, uncomplicated; F43.12 Post-traumatic stress disorder, chronic; F12.20 Cannabis dependence, uncomplicated; F17.210 Nicotine dependence, cigarettes, uncomplicated; Z71.6 Tobacco abuse counseling; Z20.822 Contact with and (suspected) exposure to COVID-19; Z88.8 Allergy status to other drugs, medicaments and biological substances; Z79.899 Other long term (current) drug therapy
CPT/HCPCS: 36415; 80048; 80053; 80061; 80076; 80143; 80164; 80179; 80307; 81003; 81025; 82077; 82140; 82607; 82746; 83036; 84443; 85025; 87635; 93005; 99285; S9485

== ENCOUNTER 2023-03-14 17:06 | Inpatient (IN) | payer MEDICARE, MEDICAID, SELFPAY ==
[2023-03-14 18:00] VITALS: BP 115/63; PULSE 79; RESP 16; TEMP 36.4; O2SAT 97
--- NOTE | 2023-03-14 18:25 | PC.NURSE ---
Narcisa was admitted to [facility] at 1715 from [facility] ED on CV for treatment of CAH with SI and polysubstance abuse Narcisa reports she did not pickers material [employer] meds from pharmacy after most recent discharge from [facility], began having CAH and used cocaine and marijuana. She overdosed on 40mg of Risperdal in response to voices telling her to do so. She is alert, fully oriented calm, pleasant and cooperative with readmission process. Mood is depressed. Affect is sad She reports current CAH and VH but does not appear to be responding to internal stimuli. She agrees to tell staff if she is struggling to remain safe on the unit. She denies plan or intent to harm self or others at present. Thought Process is linear. Appetite is good with no reported weight loss or gain. Sleep is reportedly broken Focus throughout admission process was good. Tox screen was positive for cocaine and THC which pt confirms she used recently but is not sure when. She denies medical issues?and denies physical complaint.Narcisa is placed on q 15 minute Safety Checks
[2023-03-14 20:30] VITALS: BP 97/62; PULSE 76; RESP 16; TEMP 36.7; O2SAT 97
[2023-03-14] MEDS: Divalproex Sodium 500 MG TABLET.DR 1000 MG PO (20:34)
[2023-03-14] MEDS: chlorproMAZINE HCl 100 MG TABLET PO (20:34)
[2023-03-14] MEDS: Baclofen 10 MG TABLET PO (20:34)
[2023-03-15] MEDS: Baclofen 10 MG TABLET PO ×3 (08:39→20:27)
[2023-03-15] MEDS: Folic Acid 1 MG TABLET PO (08:39)
[2023-03-15] MEDS: Omeprazole 20 MG CAPSULE.DR PO (08:39)
[2023-03-15] MEDS: Ferrous Sulfate 324 MG TABLET.DR PO (08:39)
[2023-03-15] MEDS: Multivitamin TABLET 1 TAB PO (08:40)
[2023-03-15] MEDS: Naltrexone HCl 50 MG TABLET PO (08:40)
[2023-03-15 08:45] VITALS: BP 105/61; PULSE 80; RESP 18; TEMP 36.6; O2SAT 96
[2023-03-15] MEDS: Nicotine 21 MG PATCH.TD24 TRANSDERMA (09:03)
[2023-03-15 09:18] LABS: Estimated Average Glucose 97 mg/dL
[2023-03-15 09:30] LABS: Cholesterol 165 mg/dL; HDL Cholesterol 61 mg/dL; LDL Cholesterol Calculated 95 mg/dl; Magnesium 1.9 mg/dL (1.6-2.6); Triglycerides 45 mg/dL
[2023-03-15 09:59] LABS: Folate 16.7 ng/mL (> or = 4.0); Free T4 (Free Thyroxine) 1.29 ng/dL (0.71-1.85); Thyroid Stimulating Hormone 0.22 uIU/mL (0.32-4.0); Vitamin B12 570 pg/mL (200-900)
--- NOTE | 2023-03-15 10:00 | ECG_ITS ---
Test Reason : qt ck Blood Pressure : / mmHG Vent. Rate : 063 BPM Atrial Rate : 063 BPM P-R Int : 126 ms QRS Dur : 084 ms QT Int : 424 ms P-R-T Axes : 015 062 019 degrees QTc Int : 433 ms Normal sinus rhythm Normal ECG When compared with ECG of 04-MAR-2023 13:30, Previous ECG has undetermined rhythm, needs review Nonspecific T wave abnormality now evident in Anterior leads Nonspecific T wave abnormality no longer evident in Lateral leads Referred By: Amaris Jennings Electronically Signed By:INDIA JOLLY MD
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
--- NOTE | 2023-03-15 13:39 | PC.NURSE ---
Late entry: 10:30 EKG completed, shown to Rashard Oswald NP.
--- NOTE | 2023-03-15 14:25 | P.CONHOSP_ITS ---
History of Present Illness Data of Consult Service Date: 03/15/23 Primary Care Provider: Unknown Physician HPI Reason for consult: Admission H&P Pt is a 42-year-old female with a PMH significant for schizoaffective disorder, PTSD, cocaine use disorder, marijuana use, and hx of ectopic who?is admitted to M3 psychiatry unit for SI with psychotic symptoms. Pt a transfer from [facility], where she presented after taking 10 risperadone pills after voices told her to hurt herself. Medical consult for admission H&P. ?Patient denies any significant medical diagnoses and is currently not taking any home medications. Pt has no acute medical complaints at this time. Denies chest pain/pressure, palpitations. No shortness of breath. Denies headache, lightheadedness, dizziness. No fever, chills, nausea, vomiting, diarrhea, abdominal pain. EKG shows normal sinus rhythm with nonspecific T-wave abnormalities anterior leads, but no evidence of ST elevations or depressions. Review of Systems Review of Systems: Patient has no acute medical complaints at this time Yes all other systems are reviewed and are negative [facility] Medical History Cannabis use disorder, moderate, dependence Chronic post-traumatic stress disorder (PTSD) Cocaine use disorder Schizoaffective disorder Social History Household Members: Family Household Members Other:: sister Housing: House Housing Other:: [address] [place] [address] Do you presently have visiting nurse or other home services: Yes Alcohol intake: never Patient Tobacco Use Status: Current everyday Tobacco user Tobacco use type: Cigarette Cigarette Packs Per Day: 1 Cigarettes Per Day: 20.0 Years Smoked: 5 Smoked in Last 30 Days: Yes e-Cigarette/Vaping Use: Never Used Patient Interested in Nicotine Replacement: Yes (patch) Patient Given Instructions on How to Stop Smoking: No Second Hand Smoke Exposure: No Use of substances other than those prescribed or required for medical reasons: No Substance Use Type: Crack/Cocaine and Marijuana Substance Use Frequency: Weekly Last Used Substance: Weeks (ago) Last Used Substance Other:: 1 Currently Displaying Signs/Symptoms of Drug Intoxication Withdrawal: No Any prior treatment program specific to substance use: No Have you been hit, kicked, punched, or otherwise hurt by someone within the past year? If so, by whom?: No Do you feel safe in your current relationship?: No Current Relationship Is there a partner from a previous relationship who is making you feel unsafe now?: No Are you made to feel afraid or neglected: No [employer] Practices: Christian Advance Directives: No Do you have thoughts of harming others: None Do you have a plan to hurt others: No Plan Recently lost weight without trying: No Patient : No : No Poor oral hygiene: No service: No Sexual orientation: Straight/Heterosexual Meds Allergies Allergy/AdvReac Type Severity Reaction Status Date / Time haloperidol [From HALDOL] Allergy Mild DROWSY Verified 03/04/23 13:08 quetiapine [From Seroquel] Allergy Hallucinati Verified 03/04/23 13:08 ons Active Medications: Current Medications Acetaminophen (Acetaminophen 325 Mg Tablet) 650 mg PO Q6H PRN PRN Reason: Headache/Pain Mild Scale (1-3) Al Hydroxide/Mg Hydroxide (Magnesium Hydrox/Alum Hydrox 30 Ml Oral.Susp) 30 ml PO Q6H PRN PRN Reason: Heartburn/Nausea Albuterol Sulfate (Albuterol Sulfate 90 Mcg 8 Gm Inhaler) 2 puff INHALE Q4H PRN PRN Reason: respiratory distress Baclofen (Baclofen 10 Mg Tablet) 10 mg PO TID [facility] Last Admin: 03/15/23 08:39 Dose: 10 mg Chlorpromazine HCl (Chlorpromazine Hcl 25 Mg Tablet) 50 mg PO QID PRN PRN Reason: symptoms of psychosis Chlorpromazine HCl (Chlorpromazine Hcl 100 Mg Tablet) 150 mg PO BEDTIME PRN PRN Reason: Psychosis Divalproex Sodium (Divalproex Sodium 500 Mg Tablet.) 1,000 mg PO BEDTIME [facility] Last Admin: 03/14/23 20:34 Dose: 1,000 mg Ferrous Sulfate (Ferrous Sulfate 324 Mg Tablet.) 324 mg PO DAILY [facility] Last Admin: 03/15/23 08:39 Dose: 324 mg Folic Acid (Folic Acid 1 Mg Tablet) 1 mg PO DAILY [facility] Last Admin: 03/15/23 08:39 Dose: 1 mg Hydroxyzine HCl (Hydroxyzine Hcl 25 Mg Tablet) 25 mg PO Q6H PRN PRN Reason: Anxiety Magnesium Hydroxide (Milk Of Magnesia 30 Ml Oral.Susp) 30 ml PO DAILY PRN PRN Reason: Constipation Multivitamins/Vitamin C (Multivitamin Tablet) 1 tab PO DAILY [facility] Last Admin: 03/15/23 08:40 Dose: 1 tab Naltrexone HCl (Naltrexone Hcl 50 Mg Tablet) 50 mg PO DAILY [facility] Last Admin: 03/15/23 08:40 Dose: 50 mg Nicotine (Nicotine 21 Mg Patch.Td24) 21 mg TRANSDERMA DAILY [facility] Last Admin: 03/15/23 09:03 Dose: 21 mg Omeprazole (Omeprazole 20 Mg Capsule.Dr) 20 mg PO DAILY@0630 [facility] Last Admin: 03/15/23 08:39 Dose: 20 mg Risperidone (Risperidone 2 Mg Tablet) 4 mg PO BEDTIME [facility] Trazodone HCl (Trazodone Hcl 50 Mg Tablet) 50 mg PO BEDTIME PRN PRN Reason: Insomnia Physical Exam Vital Signs and Narrative: Vital Signs: Last Vital Signs Temp 97.9 F 03/15/23 08:45 Pulse 80 03/15/23 08:45 Resp 18 03/15/23 08:45 BP 105/61 03/15/23 08:45 Pulse Ox 96 03/15/23 08:45 O2 Del Method Room Air 03/15/23 08:45 Constitutional: Alert, in no acute distress. Mental Status: Oriented to person, place and time. Eyes: Pupils are equal, round, and reactive to light. Ear, Nose, and Throat: Oropharynx clear, mucous membranes moist. Ears and nose without deformities. Trachea midline. Respiratory: Clear to auscultation bilaterally. No wheezing, rales, or rhonchi. Cardiovascular: S1, S2 regular. No murmurs, rubs, or gallops. Gastrointestinal: Abdomen soft, non-tender, non-distended. Normal bowel sounds. Neurologic: Cranial nerves II-XII are grossly intact bilaterally. No focal neurological deficits. Moves all extremities spontaneously. Skin: No rashes or lesions noted. Musculoskeletal: No cyanosis or clubbing. Extremities: No edema. Results Labs Labs: Laboratory Results - last 24 hr 03/15/23 03/15/23 08:51 08:51 Estimat Average Glucose 97 Hemoglobin A1c % 5.0 Magnesium 1.9 Triglycerides 45 Cholesterol 165 LDL Cholesterol, Calc 95 HDL Cholesterol 61 Vitamin B12 570 Folate 16.7 TSH 0.22 L Free T4 1.29 Assessment and Plan (1) Routine history and physical examination of adult: Status: Acute Plan Pt is a 42-year-old female with a PMH significant for schizoaffective disorder, PTSD, cocaine use disorder, marijuana use, and hx of ectopic who?is admitted to M3 psychiatry unit for SI with psychotic symptoms. Medical consult for admission H&P. Patient denies any significant medical diagnoses and is currently not taking any home medications. Mood disorder Plan as per Psychiatry Thank you for allowing us to participate in the care of this patient. Signing off at this time. Please let us know if there are any acute complaints or questions. Time Spent With Patient Time: Total time managing care of this patient today ____ minutes.
--- NOTE | 2023-03-15 15:20 | PM.EVENT ---
Event Note Date of Service: 03/15/23 Event Note: Addendum: Event note below reported on wrong patient. Attempted to see patient today for admission H&P, but patient sleeping and unavailable. Apparently pt has not been sleeping much lately and had an episode of agitation and aggression towards staff earlier in the day. Has been confined to the anteroom. Will attempt to see again when time allows. Time Spent With Patient Time: Total time managing care of this patient today ____ minutes.
[2023-03-15] MEDS: risperiDONE 2 MG TABLET 4 MG PO (20:27)
[2023-03-15] MEDS: Divalproex Sodium 500 MG TABLET.DR 1000 MG PO (20:28)
[2023-03-15 20:31] VITALS: BP 109/62; PULSE 70; TEMP 36.8; O2SAT 97
[2023-03-15] MEDS: chlorproMAZINE HCl 25 MG TABLET 150 MG PO (20:45)
[2023-03-16 09:38] VITALS: BP 93/54; PULSE 73; RESP 16; TEMP 36.6; O2SAT 98
[2023-03-16] MEDS: Ferrous Sulfate 324 MG TABLET.DR PO (09:47)
[2023-03-16] MEDS: Omeprazole 20 MG CAPSULE.DR PO (09:47)
[2023-03-16] MEDS: Naltrexone HCl 50 MG TABLET PO (09:47)
[2023-03-16] MEDS: Multivitamin TABLET 1 TAB PO (09:47)
[2023-03-16] MEDS: Baclofen 10 MG TABLET PO ×3 (09:47→19:59)
[2023-03-16] MEDS: Folic Acid 1 MG TABLET PO (09:47)
[2023-03-16] MEDS: Nicotine 21 MG PATCH.TD24 TRANSDERMA (09:49)
[2023-03-16] MEDS: risperiDONE 2 MG TABLET 4 MG PO (19:59)
[2023-03-16] MEDS: Divalproex Sodium 500 MG TABLET.DR 1000 MG PO (19:59)
[2023-03-16] MEDS: chlorproMAZINE HCl 25 MG TABLET 50 MG PO (20:00)
[2023-03-16 20:02] VITALS: BP 111/61; PULSE 76; TEMP 36.6; O2SAT 100
--- NOTE | 2023-03-16 20:47 | HO.PSYCHPN ---
Subjective Subjective Date of Service: 03/16/23 Reason For Visit: Schizoaffective D/O, s/p Risperdal OD, ETOH Medical Problems Affecting Mental Status: No Interim History: Isolative. Med adherent. In room. Minimal engagement. Reports feeling better without depression, SI or psychosis. Medication Compliance: Yes Side effects from medications: No Attending Groups: No Review of Systems Acute medical concerns: No Review of Systems Review of Systems Yes all other systems are reviewed and are negative Mental Status Exam Mental Status Exam Narrative: Appearance:in room, casually groomed, good hygiene, in NAD behavior: cooperative Psychomotor: no agitation or retardation noted Speech: clear, normal/rhythm/volume, spontaneous TP: linear TC: no signs of delusions, hearing voices, feeling better Mood: better Affect: congruent SI: none HI: none VH/AH: denied Delusions: none Insight/judgment: poor x 2. Memory/cog: alert oriented x 3. grossly intact to conversational testing. Diagnostics Vital Signs (24Hr): Vital Signs - 24 hr 03/16/23 09:38 03/16/23 20:02 Temperature 97.9 F 97.9 F Pulse Rate 73 76 Respiratory Rate 16 Blood Pressure 93/54 L 111/61 Pulse Oximetry 98 100 Oxygen Delivery Method Room Air Room Air Labs Labs: Laboratory Results - last 48 hr 03/15/23 03/15/23 08:51 08:51 Estimat Average Glucose 97 Hemoglobin A1c % 5.0 Magnesium 1.9 Triglycerides 45 Cholesterol 165 LDL Cholesterol, Calc 95 HDL Cholesterol 61 Vitamin B12 570 Folate 16.7 TSH 0.22 L Free T4 1.29 Medications Medications Current Medications Acetaminophen (Acetaminophen 325 Mg Tablet) 650 mg PO Q6H PRN PRN Reason: Headache/Pain Mild Scale (1-3) Al Hydroxide/Mg Hydroxide (Magnesium Hydrox/Alum Hydrox 30 Ml Oral.Susp) 30 ml PO Q6H PRN PRN Reason: Heartburn/Nausea Albuterol Sulfate (Albuterol Sulfate 90 Mcg 8 Gm Inhaler) 2 puff INHALE Q4H PRN PRN Reason: respiratory distress Baclofen (Baclofen 10 Mg Tablet) 10 mg PO TID [facility] Last Admin: 03/16/23 19:59 Dose: 10 mg Chlorpromazine HCl (Chlorpromazine Hcl 25 Mg Tablet) 50 mg PO QID PRN PRN Reason: symptoms of psychosis Last Admin: 03/16/23 20:00 Dose: 50 mg Chlorpromazine HCl (Chlorpromazine Hcl 25 Mg Tablet) 150 mg PO BEDTIME PRN PRN Reason: Psychosis Last Admin: 03/15/23 20:45 Dose: 150 mg Divalproex Sodium (Divalproex Sodium 500 Mg Tablet.) 1,000 mg PO BEDTIME [facility] Last Admin: 03/16/23 19:59 Dose: 1,000 mg Ferrous Sulfate (Ferrous Sulfate 324 Mg Tablet.) 324 mg PO DAILY [facility] Last Admin: 03/16/23 09:47 Dose: 324 mg Folic Acid (Folic Acid 1 Mg Tablet) 1 mg PO DAILY [facility] Last Admin: 03/16/23 09:47 Dose: 1 mg Hydroxyzine HCl (Hydroxyzine Hcl 25 Mg Tablet) 25 mg PO Q6H PRN PRN Reason: Anxiety Magnesium Hydroxide (Milk Of Magnesia 30 Ml Oral.Susp) 30 ml PO DAILY PRN PRN Reason: Constipation Multivitamins/Vitamin C (Multivitamin Tablet) 1 tab PO DAILY [facility] Last Admin: 03/16/23 09:47 Dose: 1 tab Naltrexone HCl (Naltrexone Hcl 50 Mg Tablet) 50 mg PO DAILY [facility] Last Admin: 03/16/23 09:47 Dose: 50 mg Nicotine (Nicotine 21 Mg Patch.Td24) 21 mg TRANSDERMA DAILY [facility] Last Admin: 03/16/23 09:49 Dose: 21 mg Omeprazole (Omeprazole 20 Mg Capsule.) 20 mg PO DAILY@0630 [facility] Last Admin: 03/16/23 09:47 Dose: 20 mg Risperidone (Risperidone 2 Mg Tablet) 4 mg PO BEDTIME [facility] Last Admin: 03/16/23 19:59 Dose: 4 mg Trazodone HCl (Trazodone Hcl 50 Mg Tablet) 50 mg PO BEDTIME PRN PRN Reason: Insomnia Allergies Allergies Allergy/AdvReac Type Severity Reaction Status Date / Time haloperidol [From HALDOL] Allergy Mild DROWSY Verified 03/04/23 13:08 quetiapine [From Seroquel] Allergy Hallucinati Verified 03/04/23 13:08 ons Assessment & Plan Assessment & Plan (1) 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 Loera is a 42 year-old woman with hx of cocaine use, psychosis as result of half-way cocaine use, and trauma. I do not believe she has schizoaffective disorder- her psychosis has been product of cocaine use as she describes and she does not show any other signs of negative symptoms of schizoaffective disorder (this movie writer has seen pt for almost a decade in other psychiatric facilities). Pt presents with much more insight into effects of substance use than seen before, but still struggling to engage in any meaningful treatment for substance use. She is aware referrals to [facility] were made while she was on M5, she hopes to follow up on them outpatient. Do not suspect OD with risperidone as initially reported, pt does admit to not having OD on risperidone. PLAN 1. Admit to M3, CV, 15 minutes checks for safety. 2. continue risperidone 3. aftercare planning 03/16: no changes to plan Reason for continued inpatient stay Substantial Risk for: inability to function Time Spent With Patient Time: Total time managing care of this patient today ____ minutes.
[2023-03-17 06:00] VITALS: BP 114/68; PULSE 78; RESP 16; TEMP 36.7; O2SAT 100
[2023-03-17] MEDS: Ferrous Sulfate 324 MG TABLET.DR PO (09:40)
[2023-03-17] MEDS: Nicotine 21 MG PATCH.TD24 TRANSDERMA (09:40)
[2023-03-17] MEDS: Naltrexone HCl 50 MG TABLET PO (09:40)
[2023-03-17] MEDS: Folic Acid 1 MG TABLET PO (09:40)
[2023-03-17] MEDS: Omeprazole 20 MG CAPSULE.DR PO (09:40)
[2023-03-17] MEDS: Baclofen 10 MG TABLET PO ×3 (09:40→22:09)
[2023-03-17] MEDS: Multivitamin TABLET 1 TAB PO (09:40)
--- NOTE | 2023-03-17 14:12 | HO.PSYCHPN ---
Subjective Subjective Date of Service: 03/17/23 Reason For Visit: Schizoaffective D/O, s/p Risperdal OD, ETOH Interim History: Isolative. Med adherent. In room. Continues to report feeling better without depression, SI or psychosis. Wants to start discharge planning with team tomorrow Medication Compliance: Yes Side effects from medications: No Attending Groups: No Review of Systems Acute medical concerns: No Review of Systems Review of Systems Yes all other systems are reviewed and are negative Mental Status Exam Mental Status Exam Narrative: Appearance:in room, casually groomed, good hygiene, in NAD behavior: cooperative Psychomotor: no agitation or retardation noted Speech: clear, normal/rhythm/volume, spontaneous TP: linear TC: no signs of delusions, hearing voices, feeling better Mood: better Affect: congruent SI: none HI: none VH/AH: denied Delusions: none Insight/judgment: poor x 2. Memory/cog: alert oriented x 3. Diagnostics Vital Signs (24Hr): Vital Signs - 24 hr 03/16/23 20:02 03/17/23 06:00 Temperature 97.9 F 98.1 F Pulse Rate 76 78 Respiratory Rate 16 Blood Pressure 111/61 114/68 Pulse Oximetry 100 100 Oxygen Delivery Method Room Air Room Air Medications Medications Current Medications Acetaminophen (Acetaminophen 325 Mg Tablet) 650 mg PO Q6H PRN PRN Reason: Headache/Pain Mild Scale (1-3) Al Hydroxide/Mg Hydroxide (Magnesium Hydrox/Alum Hydrox 30 Ml Oral.Susp) 30 ml PO Q6H PRN PRN Reason: Heartburn/Nausea Albuterol Sulfate (Albuterol Sulfate 90 Mcg 8 Gm Inhaler) 2 puff INHALE Q4H PRN PRN Reason: respiratory distress Baclofen (Baclofen 10 Mg Tablet) 10 mg PO TID [facility] Last Admin: 03/17/23 09:40 Dose: 10 mg Chlorpromazine HCl (Chlorpromazine Hcl 25 Mg Tablet) 50 mg PO QID PRN PRN Reason: symptoms of psychosis Last Admin: 03/16/23 20:00 Dose: 50 mg Chlorpromazine HCl (Chlorpromazine Hcl 25 Mg Tablet) 150 mg PO BEDTIME PRN PRN Reason: Psychosis Last Admin: 03/15/23 20:45 Dose: 150 mg Divalproex Sodium (Divalproex Sodium 500 Mg Tablet.Dr) 1,000 mg PO BEDTIME [facility] Last Admin: 03/16/23 19:59 Dose: 1,000 mg Ferrous Sulfate (Ferrous Sulfate 324 Mg Tablet.) 324 mg PO DAILY [facility] Last Admin: 03/17/23 09:40 Dose: 324 mg Folic Acid (Folic Acid 1 Mg Tablet) 1 mg PO DAILY [facility] Last Admin: 03/17/23 09:40 Dose: 1 mg Hydroxyzine HCl (Hydroxyzine Hcl 25 Mg Tablet) 25 mg PO Q6H PRN PRN Reason: Anxiety Magnesium Hydroxide (Milk Of Magnesia 30 Ml Oral.Susp) 30 ml PO DAILY PRN PRN Reason: Constipation Multivitamins/Vitamin C (Multivitamin Tablet) 1 tab PO DAILY [facility] Last Admin: 03/17/23 09:40 Dose: 1 tab Naltrexone HCl (Naltrexone Hcl 50 Mg Tablet) 50 mg PO DAILY [facility] Last Admin: 03/17/23 09:40 Dose: 50 mg Nicotine (Nicotine 21 Mg Patch.Td24) 21 mg TRANSDERMA DAILY [facility] Last Admin: 03/17/23 09:40 Dose: 21 mg Omeprazole (Omeprazole 20 Mg Capsule.) 20 mg PO DAILY@0630 [facility] Last Admin: 03/17/23 09:40 Dose: 20 mg Risperidone (Risperidone 2 Mg Tablet) 4 mg PO BEDTIME [facility] Last Admin: 03/16/23 19:59 Dose: 4 mg Trazodone HCl (Trazodone Hcl 50 Mg Tablet) 50 mg PO BEDTIME PRN PRN Reason: Insomnia Allergies Allergies Allergy/AdvReac Type Severity Reaction Status Date / Time haloperidol [From HALDOL] Allergy Mild DROWSY Verified 03/04/23 13:08 quetiapine [From Seroquel] Allergy Hallucinati Verified 03/04/23 13:08 ons Assessment & Plan Assessment & Plan (1) 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 Loera is a 42 year-old woman with hx of cocaine use, psychosis as result of shelter cocaine use, and trauma. I do not believe she has schizoaffective disorder- her psychosis has been product of cocaine use as she describes and she does not show any other signs of negative symptoms of schizoaffective disorder (this ghost writer has seen pt for almost a decade in other psychiatric facilities). Pt presents with much more insight into effects of substance use than seen before, but still struggling to engage in any meaningful treatment for substance use. She is aware referrals to [facility] were made while she was on M5, she hopes to follow up on them outpatient. Do not suspect OD with risperidone as initially reported, pt does admit to not having OD on risperidone. PLAN 1. Admit to M3, CV, 15 minutes checks for safety. 2. continue risperidone 3. aftercare planning 03/17: no changes to plan. Wants to start discharge planning with team tomorrow Reason for continued inpatient stay Substantial Risk for: rapid decompensation Time Spent With Patient Time: Total time managing care of this patient today ____ minutes.
[2023-03-17 22:05] VITALS: BP 104/54; PULSE 82; RESP 18; TEMP 36.2; O2SAT 97
[2023-03-17] MEDS: chlorproMAZINE HCl 25 MG TABLET 150 MG PO (22:08)
[2023-03-17] MEDS: Divalproex Sodium 500 MG TABLET.DR 1000 MG PO (22:08)
[2023-03-17] MEDS: risperiDONE 2 MG TABLET 4 MG PO (22:09)
[2023-03-18 08:45] VITALS: BP 103/57; PULSE 86; RESP 18; TEMP 36.6; O2SAT 97
[2023-03-18] MEDS: Multivitamin TABLET 1 TAB PO (09:04)
[2023-03-18] MEDS: Ferrous Sulfate 324 MG TABLET.DR PO (09:04)
[2023-03-18] MEDS: Omeprazole 20 MG CAPSULE.DR PO (09:04)
[2023-03-18] MEDS: Folic Acid 1 MG TABLET PO (09:04)
[2023-03-18] MEDS: Baclofen 10 MG TABLET PO ×2 (09:04→14:07)
[2023-03-18] MEDS: Nicotine 21 MG PATCH.TD24 TRANSDERMA (09:05)
[2023-03-18] MEDS: Naltrexone HCl 50 MG TABLET PO (09:05)
--- NOTE | 2023-03-18 13:52 | PC.NURSE ---
Patient alert, oriented x3. Patient anxious to be discharged today, states she is ready to leave. Patient denies SI/HI, denies AH/VH. She reports she does not need a ride home, as she lives close by and feels comfortable walking home.
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
--- NOTE | 2023-03-18 14:23 | PC.NURSE ---
Patient given discharge instructions, verbalized understanding. Reviewed belongings, patient reports all belongings bare accounted for. [facility], and patient has CSS set up. Patient reports she is aware. Patient denies SI/HI, denies AH/VH. Affect is bright, reports that sister will be picking her up- she states she lives w/ sister.
== END 2023-03-18 14:20 | disposition home or self-care (01) | DRG 885 ==
PROVIDERS: Clinical Nurse Specialist Psychiatric/Mental Health, Adult; Admitting Provider Psychiatry & Neurology Psychiatry; Visit Provider Social Worker
DX: F31.9 Bipolar disorder, unspecified (principal); R45.851 Suicidal ideations; F14.259 Cocaine dependence with cocaine-induced psychotic disorder, unspecified; F43.12 Post-traumatic stress disorder, chronic; F12.20 Cannabis dependence, uncomplicated; Z59.02 Unsheltered homelessness; F17.210 Nicotine dependence, cigarettes, uncomplicated; Z88.8 Allergy status to other drugs, medicaments and biological substances; Z79.899 Other long term (current) drug therapy
CPT/HCPCS: 36415; 80061; 82607; 82746; 83036; 83735; 84439; 84443; 93005

== ENCOUNTER 2023-09-19 07:05 | Emergency (ER) | payer MEDICARE, MEDICAID, SELFPAY ==
[2023-09-19 07:09] VITALS: PULSE 82; RESP 18; TEMP 36.3; O2SAT 97; BMI 21.3
--- NOTE | 2023-09-19 07:17 | ED.GENADULT ---
HPI - General Adult General Chief complaint: Psychiatric Symptoms Stated complaint: Med refill Time Seen by Provider: 09/19/23 07:10 Source: patient Mode of arrival: ambulatory Limitations: no limitations History of Present Illness HPI narrative: This is a 43-year-old female history of PTSD cocaine use disorder, schizoaffective disorder, presenting requesting a medication refill for her seizure meds and her risperidone, when she arrived to the department she started saying she suicidal and was going to stab herself with a knife and then began to talk to herself and respond to internal stimuli. Patient denies homicidal ideation. Endorses hallucinations. Denies medical complaints. Is followed by psychiatry and reports med compliance. Cat vaccinated against rabies Related Data Home Medications Medication Instructions Recorded Confirmed risperidone 2 mg tablet 2 mg PO BEDTIME 09/19/23 09/19/23 Previous Rx's Medication Instructions Recorded nicotine 21 mg/24 hr daily 21 mg transdermal DAILY PRN 03/11/23 transdermal patch smoking cessation 28 days #28 ea albuterol sulfate 90 mcg/actuation 2 puff inhalation Q4H PRN 03/18/23 aerosol inhaler (Ventolin HFA) respiratory distress #0 grams Allergies Allergy/AdvReac Type Severity Reaction Status Date / Time quetiapine [From Seroquel] Allergy Hallucinati Verified 03/04/23 13:08 ons Review of Systems Review of Systems: Constitutional : No Weight loss, No Fever, No Chills, No Fatigue, No Malaise ENT/Mouth : No sore throat, No Rhinorrhea Eyes: No Eye Pain, No Swelling, No Redness Cardiovascular : No Chest Pain, No SOB, No Dyspnea on Exertion, No Orthopnea, No Edema, No Palpitations Respiratory : No Cough, No Sputum, No Wheezing Gastrointestinal : No Nausea, No Vomiting, No Diarrhea, No Constipation, No abdominal Pain, No Hematochezia, No Melena Genitourinary : No Dysuria, No Urinary Frequency, No Hematuria, Musculoskeletal : No joint pain, No Myalgias, No Joint Swelling Skin : No Skin Lesions, No rash Neuro : No Weakness, No Numbness, No Dizziness, No Headache Psych : + Anxiety/Panic, No Depression, + SI, No HI All other systems reviewed and are negative Yes all other systems are reviewed and are negative PMFSH Past Medical History Attestation statement: The following information was validated with the patient. Source: old records reviewed and nursing notes reviewed Medical History Cannabis use disorder, moderate, dependence Chronic post-traumatic stress disorder (PTSD) Cocaine use disorder Schizoaffective disorder Social History Social History Household Members: Family Household Members Other:: sister Housing: House Housing Other:: [address] [place] [address] Do you presently have visiting nurse or other home services: Yes Alcohol intake: never Patient Tobacco Use Status: Current everyday Tobacco user Tobacco use type: Cigarette Cigarette Packs Per Day: 1 Cigarettes Per Day: 20.0 Years Smoked: 5 e-Cigarette/Vaping Use: Never Used Second Hand Smoke Exposure: No Substance Use Type: Crack/Cocaine and Marijuana Advance Directives: No Healthcare Proxy: No Guardian: No service: No Sexual orientation: Straight/Heterosexual Physical Exam ED Vital Signs: Vital Signs - 24 hr 09/19/23 20:16 09/20/23 06:51 Temperature 97.8 F Pulse Rate 85 Respiratory Rate 18 16 Blood Pressure 116/80 Pulse Oximetry 98 Oxygen Delivery Method Room Air BMI result Body Mass Index 21.3 vss Appearance: Alert.? Oriented X3.? No acute distress.? Head: Normocephalic, atraumatic, no step-offs or deformities Eyes: Pupils equal, round and reactive to light.? ENT: Pharynx normal.? Neck: Normal inspection.? Neck supple.? CVS: Normal heart rate and rhythm.? Pulses normal.? Respiratory: No respiratory distress.? Breath sounds normal.? Abdomen: Soft and nontender.? Skin: Skin warm and dry.? Normal skin color.? Normal skin turgor.? Extremities: No lower extremity edema.? No calf ttp. 5/5 strength to bilateral upper and lower extremities Neuro: Oriented X 3.? No motor deficit.? No sensory deficit. CN 2-12 intact Course Reevaluation(s) Reevaluation #1: Patient has had 3 behavioral outburst, screaming, responding to internal stimuli, hitting things. Patient agreeable to p.o. medication. 5 mg of p.o. Haldol, 2 mg of p.o. Ativan and 50 mg of p.o. Benadryl ordered at this time. Time: 08:05 Reevaluation #2: Patient's CBC unremarkable. Chemistry no acute findings. Valproic acid level low patient should be continued on home meds. Alcohol level negative. Urine and urine toxicology pending. At this time patient to be placed into observation to allow more time to be evaluated by behavioral health team. At time observation was started patient common cooperative no acute distress will continue to monitor Time: 12:11 Reevaluation #3: 43-year-old female presents for evaluation of suicidal ideation. She was evaluated by the care team and will be a Section 12 inpatient bed search at this time. Time: 17:30 Consultations Consultation #1: seen and cleared by crisis will dc home Time: 09:35 Medications Administered Generic Name Dose Route Start Last Admin Trade Name Freq PRN Reason Stop Dose Admin Haloperidol 5 mg 09/19/23 12:08 09/20/23 05:38 Haloperidol 5 Mg Tablet PO 5 mg Q6H PRN Administration agitation Lorazepam 1 mg 09/19/23 12:09 09/20/23 05:38 Lorazepam 1 Mg Tablet PO 1 mg Q6H PRN Administration agitation Risperidone 2 mg 09/19/23 21:00 09/20/23 07:10 Risperidone 2 Mg Tablet PO 2 mg BID YUDITH Administration Discontinued Medications Generic Name Dose Route Start Last Admin Trade Name Freq PRN Reason Stop Dose Admin Acetaminophen 975 mg 09/19/23 07:37 09/19/23 07:41 Acetaminophen 325 Mg Tablet PO 09/19/23 07:38 975 mg ONCE ONE Administration Diphenhydramine HCl 50 mg 09/19/23 08:06 09/19/23 08:11 Diphenhydramine Hcl 25 Mg Capsule PO 09/19/23 08:07 50 mg ONCE ONE Administration Haloperidol 5 mg 09/19/23 08:06 09/19/23 08:12 Haloperidol 5 Mg Tablet PO 09/19/23 08:07 5 mg ONCE ONE Administration Lorazepam 2 mg 09/19/23 08:05 09/19/23 08:11 Lorazepam 1 Mg Tablet PO 09/19/23 08:06 2 mg ONCE ONE Administration Nicotine 21 mg 09/20/23 06:15 09/20/23 06:17 Nicotine 21 Mg Patch.Td24 TRANSDERMA 09/20/23 06:16 21 mg ONCE ONE Administration Medical Decision Making Medical Decision Making [facility] Narrative: 0734 This is a 43-year-old female presenting for suicidal ideation and initially just requesting a medication refill. Physical exam benign Likely schizoaffective disorder versus polysubstance abuse. Concern for suicidal ideation. Denies homicidal ideation. Unlikely metabolic derangements. Plan at this time medical clearance evaluation by behavioral health team Differential Diagnosis Differential Diagnoses: The differential diagnosis associated with the presentation includes Likely schizoaffective disorder versus polysubstance abuse. Concern for suicidal ideation. Denies homicidal ideation. Unlikely metabolic derangements. Admission/Observation Consideration of admission/observation: Escalation of care including admission/observation considered Lab Data MDM Lab Attestation statement: I reviewed the patient's lab results. 09/19/23 07:52 09/19/23 07:52 Labs: Lab Results 09/19/23 09/19/23 09/19/23 Range/Units 07:52 19:37 19:38 WBC 5.7 (4.8-10.8) X10*3/uL RBC 4.43 (4.20-5.50) X10*6/uL Hgb 12.5 (12.0-16.0) g/dl Hct 38.3 (37.0-47.0) % MCV 86.5 (80.0-98.0) fL MCH 28.2 (27.0-33.0) pg MCHC 32.6 (31.0-35.0) g/dl RDW 13.8 (11.0-16.0) % Plt Count 384 (160-400) X10*3/uL MPV 9.5 (9.4-12.3) fL Immature Gran % (Auto) 0.2 (0.0-0.4) % Neut % (Auto) 45.4 (45-73) % Lymph % (Auto) 41.2 H (20-40) % [place] % (Auto) 8.8 (2-11) % Eos % (Auto) 3.7 (0-4) % Baso % (Auto) 0.7 (0-2) % Lymph # (Auto) 2.3 (1.2-4.9) X10*3/uL [place] # (Auto) 0.5 (0.1-1.2) X10*3/uL Eos # (Auto) 0.2 (0.0-0.4) X10*3/uL Baso # (Auto) 0.0 (0.0-0.2) X10*3/uL Abs Immat Gran (auto) 0.01 (0.00-0.03) X10*3/uL Absolute Neuts (auto) 2.6 (2.0-8.3) x10*3/uL Absolute Nucleated RBC 0.000 (0.0-0.012) X10*3/uL Nucleated RBC % (auto) 0.0 (0.0-0.2) /100WBC Sodium 141 (135-145) mmol/L Potassium 4.1 (3.3-5.1) mmol/L Chloride 108 (96-108) mmol/L Carbon Dioxide 24 (22-29) mmol/L Anion Gap 13 (12-20) BUN 12 (9-16) mg/dL Creatinine 0.90 (0.5-1.4) mg/dL Estim Creat Clear Calc 67.3 Estimated GFR > 60 Random Glucose 80 (60-115) mg/dL Calcium 9.4 (8.4-10.2) mg/dL Magnesium 2.3 (1.6-2.6) mg/dL Total Bilirubin 0.8 (0.0-1.0) mg/dL AST 32 H (5-31) U/L ALT 16 (0-31) U/L Alkaline Phosphatase 45 (39-117) U/L Total Protein 7.7 (6.5-8.0) g/dL Albumin 4.3 (3.5-5.0) g/dL Urine Color Yellow Urine Appearance Clear Urine pH 6.0 (5.0-9.0) Ur Specific [place] 1.025 (1.005-1.025) Urine Protein Negative (Neg-Trace) mg/dL Urine Glucose (UA) Negative (Negative) mg/dL Urine Ketones Negative (Negative) mg/dL Urine Blood Negative (Negative) Urine Nitrite Negative (Negative) Ur Leukocyte Esterase Small (1+) H (Negative) Urine RBC 0-2 (0-2) /HPF Urine WBC 11-20 H (0-5) /HPF Ur Squamous Epith Cells 3-5 (0-2) /HPF Urine Bacteria 3+ (None Seen) Hyaline Casts 0-2 (0-2) /LPF Urine Test NEGATIVE (NEGATIVE) Urine Opiates Screen Not Detected (Not Detect) Urine Fentanyl Screen Not Detected (Not Detect) Ur Barbiturates Screen Not Detected (Not Detect) Valproic Acid < 12.5 L (50.0-100.0) mcg/mL Ur Phencyclidine Scrn Not Detected (Not Detect) Ur Amphetamines Screen Not Detected (Not Detect) U Benzodiazepines Scrn Not Detected (Not Detect) Urine Cocaine Screen POSITIVE H (Not Detect) U Marijuana (THC) Screen POSITIVE H (Not Detect) Ethyl Alcohol < 10 mg/dL COVID-19 (VAISHNAVI) (Negative) COVID-19 Clin Com 09/20/23 Range/Units 05:45 WBC (4.8-10.8) X10*3/uL RBC (4.20-5.50) X10*6/uL Hgb (12.0-16.0) g/dl Hct (37.0-47.0) % MCV (80.0-98.0) fL MCH (27.0-33.0) pg MCHC (31.0-35.0) g/dl RDW (11.0-16.0) % Plt Count (160-400) X10*3/uL MPV (9.4-12.3) fL Immature Gran % (Auto) (0.0-0.4) % Neut % (Auto) (45-73) % Lymph % (Auto) (20-40) % [place] % (Auto) (2-11) % Eos % (Auto) (0-4) % Baso % (Auto) (0-2) % Lymph # (Auto) (1.2-4.9) X10*3/uL [place] # (Auto) (0.1-1.2) X10*3/uL Eos # (Auto) (0.0-0.4) X10*3/uL Baso # (Auto) (0.0-0.2) X10*3/uL Abs Immat Gran (auto) (0.00-0.03) X10*3/uL Absolute Neuts (auto) (2.0-8.3) x10*3/uL Absolute Nucleated RBC (0.0-0.012) X10*3/uL Nucleated RBC % (auto) (0.0-0.2) /100WBC Sodium (135-145) mmol/L Potassium (3.3-5.1) mmol/L Chloride (96-108) mmol/L Carbon Dioxide (22-29) mmol/L Anion Gap (12-20) BUN (9-16) mg/dL Creatinine (0.5-1.4) mg/dL Estim Creat Clear Calc Estimated GFR Random Glucose (60-115) mg/dL Calcium (8.4-10.2) mg/dL Magnesium (1.6-2.6) mg/dL Total Bilirubin (0.0-1.0) mg/dL AST (5-31) U/L ALT (0-31) U/L Alkaline Phosphatase (39-117) U/L Total Protein (6.5-8.0) g/dL Albumin (3.5-5.0) g/dL Urine Color Urine Appearance Urine pH (5.0-9.0) Ur Specific [place] (1.005-1.025) Urine Protein (Neg-Trace) mg/dL Urine Glucose (UA) (Negative) mg/dL Urine Ketones (Negative) mg/dL Urine Blood (Negative) Urine Nitrite (Negative) Ur Leukocyte Esterase (Negative) Urine RBC (0-2) /HPF Urine WBC (0-5) /HPF Ur Squamous Epith Cells (0-2) /HPF Urine Bacteria (None Seen) Hyaline Casts (0-2) /LPF Urine Test (NEGATIVE) Urine Opiates Screen (Not Detect) Urine Fentanyl Screen (Not Detect) Ur Barbiturates Screen (Not Detect) Valproic Acid (50.0-100.0) mcg/mL Ur Phencyclidine Scrn (Not Detect) Ur Amphetamines Screen (Not Detect) U Benzodiazepines Scrn (Not Detect) Urine Cocaine Screen (Not Detect) U Marijuana (THC) Screen (Not Detect) Ethyl Alcohol mg/dL COVID-19 (VAISHNVAI) Negative (Negative) COVID-19 Clin Com See Note Chronic Conditions Patient?s care impacted by: Other (PTSD, schizoaffective d/o ) Critical Care Time Critical Care Time Critical Care Time: No Discharge Plan Discharge Clinical Impression: Medication refill, Schizoaffective disorder Patient Disposition: Still a Patient Instructions: Medicine Refill (ED) Additional Instructions: Take your medications as prescribed. If you were prescribed antibiotics today, it is important that you take your medication to their entirety, do not skip any doses, do not finish them early. Follow-up with your primary care provider this week. Return to the emergency department with new or worsening symptoms. In case of emergency call 911 ' Please start calling a primary care provider psychiatrist for medication refill the emergency department is not appropriate place for this. Prescriptions: No Action albuterol sulfate [Ventolin HFA] 90 mcg/actuation Hfa Aerosol Inhaler 2 puff inhalation Q4H PRN (Reason: respiratory distress) Qty: 0 0RF nicotine 21 mg/24 hr Patch 24 Hour 21 mg transdermal DAILY PRN (Reason: smoking cessation) 28 Days Qty: 28 1RF risperidone 2 mg tablet 2 mg PO BEDTIME Referrals: Physician,Unknown J [Primary Care Provider] - 2 days Stand Alone Forms: Work/School Release Interventions: [place]-Suicide Risk Severity Scale Last Done: 09/20/23 06:44
--- NOTE | 2023-09-19 07:23 | PC.NURSE ---
PT DENIED NEEDING TO SPEAK TO CRISIS UPON INITIAL TRIAGE. HEARING VOICES, STATES WILL STAB HERSELF.
--- NOTE | 2023-09-19 07:37 | PC.NURSE ---
supplementary note- reports recently no meds, homeless, denies recent drug etoh use, does attest to hearing voices and thoughts to harm self. 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
[2023-09-19] MEDS: Acetaminophen 325 MG TABLET 975 MG PO (07:41)
[2023-09-19 07:57] LABS: MANUAL DIFF FLAG NO
--- NOTE | 2023-09-19 07:58 | PC.NURSE ---
client is immediately volatile towards whomever (staff reminded client they have a room) and client spontaneously springs aggressively forward swearing and saying disconnected stuff about sucking dicks.
[2023-09-19 07:59] LABS: Basophils Percent Auto 0.7 % (0-2); Eosinophils Absolute Auto 0.2 X10*3/uL (0.0-0.4); Eosinophils Percent Auto 3.7 % (0-4); Hematocrit 38.3 % (37.0-47.0); Hemoglobin 12.5 g/dl (12.0-16.0); Imm Gran Abs Auto 0.01 X10*3/uL (0.00-0.03); Imm Gran Pct Auto 0.2 % (0.0-0.4); Lymphocytes Absolute Auto 2.3 X10*3/uL (1.2-4.9); Lymphocytes Percent Auto 41.2 % (20-40); Mean Corpuscular HGB Conc 32.6 g/dl (31.0-35.0); Mean Corpuscular Hemoglobin 28.2 pg (27.0-33.0); Mean Corpuscular Volume 86.5 fL (80.0-98.0); Mean Platelet Volume 9.5 fL (9.4-12.3); Monocytes Absolute Auto 0.5 X10*3/uL (0.1-1.2); Monocytes Percent Auto 8.8 % (2-11); Neutrophils Absolute Auto 2.6 x10*3/uL (2.0-8.3); Neutrophils Percent Auto 45.4 % (45-73); Platelet Count 384 X10*3/uL (160-400); Red Blood Count 4.43 X10*6/uL (4.20-5.50); Red Cell Distribution Width 13.8 % (11.0-16.0); White Blood Count 5.7 X10*3/uL (4.8-10.8)
[2023-09-19] MEDS: LORazepam 1 MG TABLET 2 MG PO (08:11)
[2023-09-19] MEDS: diphenhydrAMINE HCL 25 MG CAPSULE 50 MG PO (08:11)
[2023-09-19] MEDS: HaloperidoL 5 MG TABLET PO (08:12)
--- NOTE | 2023-09-19 08:13 | PC.NURSE ---
client had spontaneous outburst towards nothing perceivable, security attends, client received order for 5-2-50mg oral, which she takes readily. ready to drug you up patient states, continues to self dialogue to the air.
[2023-09-19 08:31] LABS: Alanine Aminotransferase 16 U/L (0-31); Albumin Level 4.3 g/dL (3.5-5.0); Alkaline Phosphatase 45 U/L (39-117); Anion Gap 13 (12-20); Aspartate Amino Transferase 32 U/L (5-31); Bilirubin Total 0.8 mg/dL (0.0-1.0); Blood Urea Nitrogen 12 mg/dL (9-16); Calcium 9.4 mg/dL (8.4-10.2); Carbon Dioxide 24 mmol/L (22-29); Chloride 108 mmol/L (96-108); Creatinine Clr Calc Pharmacy 67.3; Estimated Glomerular Filt Rate > 60; Ethanol < 10 mg/dL; Glucose Random 80 mg/dL (60-115); Magnesium 2.3 mg/dL (1.6-2.6); Potassium 4.1 mmol/L (3.3-5.1); Sodium 141 mmol/L (135-145); Total Protein 7.7 g/dL (6.5-8.0)
[2023-09-19 08:45] LABS: Valproate < 12.5 mcg/mL (50.0-100.0)
[2023-09-19 19:46] LABS: UPreg QC Valid YES; Urine Pregnancy NEGATIVE (NEGATIVE)
[2023-09-19 19:46] LABS: Appearance Urine Clear; Color Urine Yellow; Glucose Urine UA Negative (Negative); Leukocyte Esterase Urine Small (1+) (Negative); Nitrite Urine Negative (Negative); Specific Gravity - Urine 1.025 (1.005-1.025); UMIC TRIGGER UACC YES; Urine Blood Negative (Negative); Urine Ketones Negative (Negative); Urine Protein Negative (Neg-Trace)
[2023-09-19 19:51] LABS: Bacteria Urine 3+ (None Seen); Hyaline Casts Urine 0-2 /LPF (0-2); RBC Urine 0-2 /HPF (0-2); UACC Culture Trigger YES
[2023-09-19 19:59] LABS: Amphetamine Screen Urine Not Detected (Not Detect); Barbiturates, Urine Not Detected (Not Detect); Benzodiazepines Screen Urine Not Detected (Not Detect); Cannabinoid Screen Urine POSITIVE (Not Detect); Cocaine Screen Urine POSITIVE (Not Detect); Fentanyl, urine Not Detected (Not Detect); Opiate Screen Urine Not Detected (Not Detect); Phencyclidine Screen Urine Not Detected (Not Detect)
[2023-09-19] MEDS: risperiDONE 2 MG TABLET PO (20:14)
[2023-09-19 20:16] VITALS: RESP 18
--- NOTE | 2023-09-19 21:08 | PHA.MEDREC ---
Pharmacy Consult ? Medication Reconciliation Pharmacy has reviewed the medication reconciliation completed by nursing.
--- NOTE | 2023-09-19 21:59 | PC.NURSE ---
Patient is currently in bed appears sleeping, no distress observed/reported, medication compliant, behavior non concerning at this time but unpredictable, disposition per care team is section 12 inpatient bed search, labs completed/resulted, will continue to monitor.
--- NOTE | 2023-09-20 | ECG_ITS ---
Test Reason : ASSESS QT INTERVAL Blood Pressure : / mmHG Vent. Rate : 077 BPM Atrial Rate : 077 BPM P-R Int : 124 ms QRS Dur : 084 ms QT Int : 384 ms P-R-T Axes : 024 058 022 degrees QTc Int : 434 ms Normal sinus rhythm Normal ECG When compared with ECG of 15-MAR-2023 10:18, No significant change was found Referred By: Radu Mercer Electronically Signed By:CHICHI CARTWRIGHT MD
[2023-09-20] MEDS: LORazepam 1 MG TABLET PO (05:38)
[2023-09-20] MEDS: HaloperidoL 5 MG TABLET PO (05:38)
[2023-09-20 06:04] LABS: COVID-19 Test Negative (Negative); IDNOW Serial# 6674DD1D
[2023-09-20] MEDS: Nicotine 21 MG PATCH.TD24 TRANSDERMA (06:17)
--- NOTE | 2023-09-20 06:44 | PC.NURSE ---
Patient was little loud and disruptive at 0500, PRN ativan 1 mg po and Haldol 5 mg po administered at 0538 with + effect, currently in common area sitting quietly and watching TV, will continue to monitor.
[2023-09-20 06:51] VITALS: BP 116/80; PULSE 85; RESP 16; TEMP 36.6; O2SAT 98
--- NOTE | 2023-09-20 06:58 | PC.NURSE ---
patient appears to be at rest in her room, sometimes asking for staff to complete tasks for her she could do herself.
[2023-09-20] MEDS: risperiDONE 2 MG TABLET PO (07:10)
== END 2023-09-20 09:53 | disposition home or self-care (01) ==
PROVIDERS: Physician Assistant; Emergency Provider Student in an Organized Health Care Education/Training Program
DX: F25.9 Schizoaffective disorder, unspecified (principal); R45.851 Suicidal ideations; Z76.0 Encounter for issue of repeat prescription; F43.12 Post-traumatic stress disorder, chronic; D64.9 Anemia, unspecified; F14.10 Cocaine abuse, uncomplicated; F12.20 Cannabis dependence, uncomplicated; F17.210 Nicotine dependence, cigarettes, uncomplicated; Z79.899 Other long term (current) drug therapy; Z11.52 Encounter for screening for COVID-19
CPT/HCPCS: 36415; 80053; 80164; 80307; 81001; 81025; 83735; 85025; 87086; 87635; 93005; 99285; S9485

== ENCOUNTER 2023-09-24 11:58 | Inpatient (IN) | payer MEDICARE, MEDICAID, SELFPAY ==
--- NOTE | 2023-09-24 | ECG_ITS ---
Test Reason : MED CLEAR Blood Pressure : / mmHG Vent. Rate : 075 BPM Atrial Rate : 075 BPM P-R Int : 134 ms QRS Dur : 080 ms QT Int : 422 ms P-R-T Axes : 061 046 035 degrees QTc Int : 471 ms Normal sinus rhythm Low voltage QRS Otherwise normal ECG When compared with ECG of 20-SEP-2023 08:15, No significant change was found Referred By: Dorcas Arreguin Electronically Signed By:CHICHI CARTWRIGHT MD
[2023-09-24 12:03] VITALS: BP 142/90; PULSE 99; RESP 19; TEMP 36.6; O2SAT 99; BMI 27.0
--- NOTE | 2023-09-24 12:04 | ED.GENADULT ---
HPI - General Adult General Chief complaint: Psychiatric Symptoms Stated complaint: Suicidal Thoughts Time Seen by Provider: 09/24/23 12:09 Source: patient, RN notes reviewed and old records reviewed Mode of arrival: ambulatory Limitations: no limitations History of Present Illness HPI narrative: 43 year old female with pmhx significant for cocaine use disorder, PTSD, schizoaffective disorder, and anemia presents to the ED today for evaluation of suicidal ideation. Reports thoughts of harming herself for the past month with plan to stab herself. Endorses access to knives and guns at home. Denies homicidal ideation. Denies auditory, visual, or tactile hallucinations. Endorses crack cocaine use and etoh consumption prior to arrival. States she has been taking her home meds as prescribed. No missed doses. Has no physical complaints at present. Related Data Home Medications Medication Instructions Recorded Confirmed divalproex 500 mg tablet,extended 1,000 mg PO BEDTIME 09/24/23 09/24/23 release 24 hr hydroxyzine HCl 50 mg tablet 50 mg PO BID 09/24/23 09/24/23 risperidone 4 mg tablet 4 mg PO BEDTIME 09/24/23 09/24/23 Allergies Allergy/AdvReac Type Severity Reaction Status Date / Time quetiapine [From Seroquel] Allergy Hallucinati Verified 09/24/23 14:11 ons Review of Systems Review of Systems: Constitutional: No fever, chills, fatigue, night sweats, weight changes ENT/Mouth: No ear pain, hearing loss, nasal congestion, sinus pain, rhinorrhea, sore throat Eyes: No eye pain, swelling, redness, vision changes, discharge Cardio: No chest pain, palpitations, MOONEY, orthopnea, peripheral edema Pulm: No SOB, cough, sputum, wheezing, dyspnea, hemoptysis GI: No nausea, vomiting, hematemesis, abdominal pain, diarrhea, constipation, hematochezia, melena : No irregular bleeding, dysuria, frequency, urgency, hesitancy, hematuria MSK: No back pain, neck pain, joint pain, myalgias Skin: No lesions, rashes Neuro: No weakness, numbness, paresthesias, LOC, dizziness, headache Psych: No anxiety/panic, depression, +SI, No HI, AH/VH All other systems reviewed and are negative. [facility] Past Medical History Attestation statement: The following information was validated with the patient. Source: old records reviewed and nursing notes reviewed Medical History Chronic post-traumatic stress disorder (PTSD) Cannabis use disorder, moderate, dependence Cocaine use disorder Schizoaffective disorder Social History Social History Household Members: Family Household Members Other:: sister Housing: Homeless Housing Other:: [address] [facility] Do you presently have visiting nurse or other home services: No Alcohol intake: current Alcohol intake frequency: does not drink Patient Tobacco Use Status: Current everyday Tobacco user Tobacco use type: Cigarette Cigarette Packs Per Day: 1 Cigarettes Per Day: 20.0 Years Smoked: 5 Smoked in Last 30 Days: Yes e-Cigarette/Vaping Use: Never Used Second Hand Smoke Exposure: No Use of substances other than those prescribed or required for medical reasons: Yes Substance Use Type: Crack/Cocaine Substance Use Frequency: Daily Last Used Substance: Just Prior to Admission Currently Displaying Signs/Symptoms of Drug Intoxication Withdrawal: No Any prior treatment program specific to substance use: No Advance Directives: No Advance Directives Information Provided: No Healthcare Proxy: No Guardian: No Do you have thoughts of harming others: None Do you have a plan to hurt others: No Plan Recently lost weight without trying: No Eating poorly because of decreased appetite: No Patient : No : No Poor oral hygiene: No service: No Sexual orientation: Straight/Heterosexual Physical Exam ED Vital Signs: Vital Signs - 24 hr 09/25/23 05:34 Pulse Rate 74 Respiratory Rate 18 Blood Pressure 96/63 Pulse Oximetry 98 Oxygen Delivery Method Room Air BMI result Body Mass Index 27.0 Vital signs are stable, borderline tachycardic likely secondary to recent cocaine use Const Other: + tearful in room, lying in bed facing away from me, hesitant to look at me or answer questions General: no acute distress, alert and awake Orientation/consciousness: patient oriented x3 Limitations: no limitations HENMT Ears: hearing grossly normal bilaterally Eyes General: appearance normal, both eyes and all related structures Conjunctivae: conjunctivae normal Sclerae: sclerae normal Pupils: Equal, round and reactive pupils present Neck Neck: Yes normal visual inspection Resp Effort & Inspection: normal respiratory effort and able to speak in complete sentences Auscultation: clear to auscultation bilaterally Cardio Rate: regular rate Rhythm: regular rhythm GI Inspection: Yes normal to inspection Palpation (GI): Soft to palpation and nontender Skin General skin exam: no rashes or lesions noted Neuro General: patient oriented x3, gait normal and moves all extremities Cranial nerves: Yes CN's II-XII intact bilaterally and Yes Equal, round and reactive pupils present Extrem General: Yes normal to inspection and Yes full ROM Course Course Course Narrative: This is an RME: Additional HPI, ROS, PE not included below will be deferred to primary provider. This is a 43-year-old female with polysubstance abuse, schizoaffective d/o, PTSD, and history of suicidality presenting with SI and plan to jump off a bridge. Plan - urine, labs, care team consult Reevaluation(s) Reevaluation #1: 2401-- Patient's vital stable at the end of my shift. Sign out given to my collegue, Mitra PURVIS pending medical clearance and care team consultation. Medications Administered Generic Name Dose Route Start Last Admin Trade Name Freq PRN Reason Stop Dose Admin Divalproex Sodium 1,000 mg 09/25/23 21:00 09/25/23 20:22 Divalproex Sodium Er 500 Mg Tab.Er.24h PO 1,000 mg BEDTIME YUDITH Administration Hydroxyzine HCl 50 mg 09/25/23 21:00 09/25/23 20:23 Hydroxyzine Hcl 50 Mg Tablet PO 50 mg BID YUDITH Administration Risperidone 2 mg 09/25/23 21:00 09/25/23 20:23 Risperidone 2 Mg Tablet PO 10/02/23 09:01 2 mg BID YUDITH Administration Discontinued Medications Generic Name Dose Route Start Last Admin Trade Name Freq PRN Reason Stop Dose Admin Haloperidol 5 mg 09/24/23 12:43 09/24/23 17:36 Haloperidol 5 Mg Tablet PO 09/24/23 12:44 Not Given ONCE ONE Influenza Virus Vaccine 0.5 ml 09/25/23 17:49 09/25/23 18:19 Flu Vacc [id number](6mos Up)/Pf 0.5 Ml Syringe IM 09/25/23 17:50 Not Given .ONCE ONE Lorazepam 2 mg 09/24/23 12:43 09/24/23 12:47 Lorazepam 1 Mg Tablet PO 09/24/23 12:44 2 mg ONCE ONE Administration Lorazepam 2 mg 09/25/23 08:40 09/25/23 08:45 Lorazepam 1 Mg Tablet PO 09/25/23 08:41 2 mg ONCE ONE Administration Lorazepam 1 mg 09/25/23 14:20 09/25/23 14:24 Lorazepam 1 Mg Tablet PO 09/25/23 14:21 1 mg ONCE ONE Administration Nicotine 14 mg 09/25/23 09:37 09/25/23 09:42 Nicotine 14 Mg Patch.Td24 TRANSDERMA 09/25/23 09:38 14 mg ONCE ONE Administration Risperidone 2 mg 09/25/23 08:39 09/25/23 08:42 Risperidone 2 Mg Tablet PO 09/25/23 08:40 2 mg ONCE ONE Administration Medical Decision Making Medical Decision Making [facility] Narrative: 43 year old female with pmhx significant for cocaine use disorder, PTSD, schizoaffective disorder, and anemia presents to the ED today for evaluation of suicidal ideation. Vital signs notable for tachycardia likely secondary to recent cocaine use. Otherwise within normal limits. Patient is nontoxic appearing and in no acute distress. On my initial examination, patient is tearful, looking away from me and facing the wall. She is hesitant to face me or answer questions. RRR. Lungs CTA bilaterally. There are no rashes or lesions noted to her skin. Exam nonfocal. Clinical concern for suicidal ideation, polysubstance abuse, acute etoh intoxication, mediation non compliance, depression. Plan at this time is basic labs, UA, toxicology, and medical clearance for care team consultation. Differential Diagnosis Differential Diagnoses: The differential diagnosis associated with the presentation includes As above. Admission/Observation Consideration of admission/observation: Escalation of care including admission/observation considered Consult Healthcare Provider Management of the patient was discussed with: Behavioral Health Provider Lab Data [facility] Lab Attestation statement: I reviewed the patient's lab results. As above. 09/24/23 15:54 09/24/23 15:54 Labs: Lab Results 09/24/23 09/25/23 Range/Units 15:54 05:20 WBC 9.5 (4.8-10.8) X10*3/uL RBC 3.83 L (4.20-5.50) X10*6/uL Hgb 10.7 L (12.0-16.0) g/dl Hct 33.2 L (37.0-47.0) % MCV 86.7 (80.0-98.0) fL MCH 27.9 (27.0-33.0) pg MCHC 32.2 (31.0-35.0) g/dl RDW 13.7 (11.0-16.0) % Plt Count 334 (160-400) X10*3/uL MPV 9.4 (9.4-12.3) fL Immature Gran % (Auto) 0.3 (0.0-0.4) % Neut % (Auto) 45.8 (45-73) % Lymph % (Auto) 41.4 H (20-40) % Randolph % (Auto) 6.4 (2-11) % Eos % (Auto) 5.7 H (0-4) % Baso % (Auto) 0.4 (0-2) % Lymph # (Auto) 3.9 (1.2-4.9) X10*3/uL Randolph # (Auto) 0.6 (0.1-1.2) X10*3/uL Eos # (Auto) 0.5 H (0.0-0.4) X10*3/uL Baso # (Auto) 0.0 (0.0-0.2) X10*3/uL Abs Immat Gran (auto) 0.03 (0.00-0.03) X10*3/uL Absolute Neuts (auto) 4.4 (2.0-8.3) x10*3/uL Absolute Nucleated RBC 0.000 (0.0-0.012) X10*3/uL Nucleated RBC % (auto) 0.0 (0.0-0.2) /100WBC Sodium 140 (135-145) mmol/L Potassium 3.7 (3.3-5.1) mmol/L Chloride 108 (96-108) mmol/L Carbon Dioxide 24 (22-29) mmol/L Anion Gap 12 (12-20) BUN 13 (9-16) mg/dL Creatinine 0.86 (0.5-1.4) mg/dL Estim Creat Clear Calc 76.4 Estimated GFR > 60 Random Glucose 101 (60-115) mg/dL Calcium 8.8 D (8.4-10.2) mg/dL Magnesium 2.2 (1.6-2.6) mg/dL Total Bilirubin 0.2 (0.0-1.0) mg/dL AST 31 (5-31) U/L ALT 14 (0-31) U/L Alkaline Phosphatase 44 (39-117) U/L Total Protein 6.7 (6.5-8.0) g/dL Albumin 3.7 (3.5-5.0) g/dL Beta HCG, Quant < 2 mIU/mL Urine Color Yellow Urine Appearance Clear Urine pH 5.5 (5.0-9.0) Ur Specific Prospect >= 1.030 H (1.005-1.025) Urine Protein Negative (Neg-Trace) mg/dL Urine Glucose (UA) Negative (Negative) mg/dL Urine Ketones Trace (Negative) mg/dL Urine Blood Negative (Negative) Urine Nitrite Negative (Negative) Ur Leukocyte Esterase Negative (Negative) Salicylates < 5.0 L (15-30) mg/dL Urine Opiates Screen Not Detected (Not Detect) Urine Fentanyl Screen Not Detected (Not Detect) Acetaminophen < 3 (<30) mcg/mL Ur Barbiturates Screen Not Detected (Not Detect) Ur Phencyclidine Scrn Not Detected (Not Detect) Ur Amphetamines Screen Not Detected (Not Detect) U Benzodiazepines Scrn Not Detected (Not Detect) Urine Cocaine Screen POSITIVE H (Not Detect) U Marijuana (THC) Screen POSITIVE H (Not Detect) Ethyl Alcohol < 10 mg/dL COVID-19 (VAISHNAVI) Negative (Negative) COVID-19 Clin Com See Note External Record Review External record reviewed: Inpatient record, Office record, Outpatient record, Prior outpatient labs, Prior outpatient radiology, Primary care record and Outside ED record Prescription Management I considered prescription management with: Other (Anxiolytic) Chronic Conditions Patient?s care impacted by: Other (Polysubstance use disorder, schizoaffective disorder) Social Determinants Patient?s care significantly limited by Social Determinants of Health including: Inadequate housing, Unemployment, Problems related to employment and Other Social Determinant of Health Critical Care Time Critical Care Time Critical Care Time: No Discharge Plan Discharge Clinical Impression: Suicidal ideation Patient Disposition: Admitted As Inpatient Interventions: Admission Worksheet (ED) Last Done: 09/25/23 17:07 Discharge Date/Time: 09/25/23 17:08
[2023-09-24] MEDS: LORazepam 1 MG TABLET 2 MG PO (12:47)
--- NOTE | 2023-09-24 12:50 | PC.NURSE ---
Patient came in through waiting room, when brought in to pod, patient was very impulsive with thoughts. Stating Pig ass miriamch, suck a rangel , when asked what she came in for today. Patient eventually admitted to this RN that she has SI thoughts and plan to jump of bridge or shoot herself. Patient continues to verbally escalate, calling staff names, appearing to respond to internal stimuli
--- NOTE | 2023-09-24 13:06 | PC.NURSE ---
Patient requesting Ativan, this RN spoke with GEMMA Toscano who stated she will look into it. Ativan and Haldol offered, patient declined haldol, took Ativan and then decided to lay down in her room. Patient is now laying on bed in room, occasionally screaming but going back to being silent
[2023-09-24 13:22] VITALS: RESP 16
[2023-09-24 14:52] VITALS: RESP 16
[2023-09-24 15:58] LABS: MANUAL DIFF FLAG NO
[2023-09-24 16:05] LABS: Basophils Percent Auto 0.4 % (0-2); Eosinophils Absolute Auto 0.5 X10*3/uL (0.0-0.4); Eosinophils Percent Auto 5.7 % (0-4); Hematocrit 33.2 % (37.0-47.0); Hemoglobin 10.7 g/dl (12.0-16.0); Imm Gran Abs Auto 0.03 X10*3/uL (0.00-0.03); Imm Gran Pct Auto 0.3 % (0.0-0.4); Lymphocytes Absolute Auto 3.9 X10*3/uL (1.2-4.9); Lymphocytes Percent Auto 41.4 % (20-40); Mean Corpuscular HGB Conc 32.2 g/dl (31.0-35.0); Mean Corpuscular Hemoglobin 27.9 pg (27.0-33.0); Mean Corpuscular Volume 86.7 fL (80.0-98.0); Mean Platelet Volume 9.4 fL (9.4-12.3); Monocytes Absolute Auto 0.6 X10*3/uL (0.1-1.2); Monocytes Percent Auto 6.4 % (2-11); Neutrophils Absolute Auto 4.4 x10*3/uL (2.0-8.3); Neutrophils Percent Auto 45.8 % (45-73); Platelet Count 334 X10*3/uL (160-400); Red Blood Count 3.83 X10*6/uL (4.20-5.50); Red Cell Distribution Width 13.7 % (11.0-16.0); White Blood Count 9.5 X10*3/uL (4.8-10.8)
[2023-09-24 16:16] LABS: COVID-19 Test Negative (Negative); IDNOW Serial# BCCEAD1C
[2023-09-24 16:22] LABS: Acetaminophen LAB < 3 mcg/mL (<30)
[2023-09-24 16:24] LABS: Alanine Aminotransferase 14 U/L (0-31); Albumin Level 3.7 g/dL (3.5-5.0); Alkaline Phosphatase 44 U/L (39-117); Anion Gap 12 (12-20); Aspartate Amino Transferase 31 U/L (5-31); Bilirubin Total 0.2 mg/dL (0.0-1.0); Blood Urea Nitrogen 13 mg/dL (9-16); Calcium 8.8 mg/dL (8.4-10.2); Carbon Dioxide 24 mmol/L (22-29); Chloride 108 mmol/L (96-108); Creatinine Clr Calc Pharmacy 76.4; Estimated Glomerular Filt Rate > 60; Ethanol < 10 mg/dL; Glucose Random 101 mg/dL (60-115); HCG Quantitative < 2 mIU/mL; Magnesium 2.2 mg/dL (1.6-2.6); Potassium 3.7 mmol/L (3.3-5.1); Sodium 140 mmol/L (135-145); Total Protein 6.7 g/dL (6.5-8.0)
[2023-09-24 16:29] LABS: Salicylate < 5.0 mg/dL (15-30)
--- NOTE | 2023-09-24 17:37 | PC.NURSE ---
patient sleeping, respirations even and unlabored, no apparent distress at this time. Awaiting urine sample
--- NOTE | 2023-09-24 23:39 | PC.NURSE ---
This web content writer assumed care of pt at 2300, pt appears to be resting in bed, equal and unlabored respirations noted, no distress noted.
--- NOTE | 2023-09-25 05:00 | PC.NURSE ---
Pt appears to be sleeping at this moment, respirations equal and unlabored, no apparent distress noted.
--- NOTE | 2023-09-25 05:17 | PC.NURSE ---
Pt ambulated to bathroom with a steady gait, pt having loud outbursts of swearing, Pt reporting SI thoughts with a plan, per pt grab a towel and wrap it around my neck. Pt denies HI. Urine collected and sent to lab.
[2023-09-25 05:27] LABS: Appearance Urine Clear; Color Urine Yellow; Glucose Urine UA Negative (Negative); Leukocyte Esterase Urine Negative (Negative); Nitrite Urine Negative (Negative); PH 5.5 (5.0-9.0); Specific Gravity - Urine >= 1.030 (1.005-1.025); Urine Blood Negative (Negative); Urine Ketones Trace mg/dL (Negative); Urine Protein Negative (Neg-Trace)
[2023-09-25 05:34] VITALS: BP 96/63; PULSE 74; RESP 18; O2SAT 98
[2023-09-25 05:34] LABS: Amphetamine Screen Urine Not Detected (Not Detect); Barbiturates, Urine Not Detected (Not Detect); Benzodiazepines Screen Urine Not Detected (Not Detect); Cannabinoid Screen Urine POSITIVE (Not Detect); Cocaine Screen Urine POSITIVE (Not Detect); Fentanyl, urine Not Detected (Not Detect); Opiate Screen Urine Not Detected (Not Detect); Phencyclidine Screen Urine Not Detected (Not Detect)
--- NOTE | 2023-09-25 05:37 | PC.NURSE ---
EKG obtained, VS updated, pt yelling and screaming curse words during EKG. Pt given apple juice per request.
--- NOTE | 2023-09-25 07:32 | PC.NURSE ---
patient appears to remain asleep at present respirations are even and unlabored patient appears in no distress
[2023-09-25] MEDS: risperiDONE 2 MG TABLET PO ×2 (08:42→20:23)
[2023-09-25] MEDS: LORazepam 1 MG TABLET 2 MG PO (08:45)
[2023-09-25] MEDS: Nicotine 14 MG PATCH.TD24 TRANSDERMA (09:42)
--- NOTE | 2023-09-25 12:57 | PHA.MEDREC ---
Pharmacy Consult ? Medication Reconciliation Pharmacy has completed the medication reconciliation.PHARMACY HAS REVIEWED MED REC DONE BY NURSING
[2023-09-25] MEDS: LORazepam 1 MG TABLET PO (14:24)
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
[2023-09-25 17:50] VITALS: BMI 28.5
[2023-09-25 20:15] VITALS: BP 119/57; PULSE 78; RESP 18; TEMP 36.5; O2SAT 99
[2023-09-25] MEDS: Divalproex Sodium ER 500 MG TAB.ER.24H 1000 MG PO (20:22)
[2023-09-25] MEDS: hydrOXYzine HCL 50 MG TABLET PO (20:23)
[2023-09-26] MEDS: Nicotine 14 MG PATCH.TD24 TRANSDERMA (06:32)
[2023-09-26] MEDS: risperiDONE 2 MG TABLET PO ×2 (06:54→22:39)
[2023-09-26] MEDS: hydrOXYzine HCL 50 MG TABLET PO ×2 (06:55→22:39)
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
[2023-09-26 09:28] LABS: Alanine Aminotransferase 16 U/L (0-31); Albumin Level 4.3 g/dL (3.5-5.0); Alkaline Phosphatase 44 U/L (39-117); Anion Gap 10 (12-20); Aspartate Amino Transferase 22 U/L (5-31); Bilirubin Total 0.3 mg/dL (0.0-1.0); Blood Urea Nitrogen 12 mg/dL (9-16); Calcium 9.4 mg/dL (8.4-10.2); Carbon Dioxide 23 mmol/L (22-29); Chloride 109 mmol/L (96-108); Cholesterol 160 mg/dL (<200); Creatinine Clr Calc Pharmacy 77.6; Estimated Glomerular Filt Rate > 60; Glucose Fasting 64 mg/dL (60-99); HDL Cholesterol 68 mg/dL (>40); LDL Cholesterol Calculated 84 mg/dL (<100); Lithium < 0.10 mmol/L (0.60-1.20); Sodium 138 mmol/L (135-145); Total Protein 7.8 g/dL (6.5-8.0); Triglycerides 40 mg/dL (<150)
[2023-09-26 09:50] LABS: TSH reflex Free T4 0.38 uIU/mL (0.32-4.0)
[2023-09-26 10:50] VITALS: BP 116/76; PULSE 96; RESP 16; TEMP 36.7; O2SAT 100
[2023-09-26] MEDS: risperiDONE 0.5 MG TABLET PO ×2 (12:36→22:39)
[2023-09-26] MEDS: hydrOXYzine HCL 25 MG TABLET PO (16:34)
[2023-09-26 20:25] VITALS: BP 101/58; PULSE 73; RESP 16; TEMP 36.8; O2SAT 98
[2023-09-26] MEDS: Divalproex Sodium ER 500 MG TAB.ER.24H 1000 MG PO (22:39)
[2023-09-27 08:10] VITALS: BP 116/59; PULSE 72; RESP 16; TEMP 36.7; O2SAT 99
[2023-09-27] MEDS: hydrOXYzine HCL 50 MG TABLET PO ×2 (08:19→22:00)
[2023-09-27] MEDS: risperiDONE 2 MG TABLET PO ×2 (08:19→22:01)
[2023-09-27] MEDS: Nicotine 14 MG PATCH.TD24 TRANSDERMA (08:31)
--- NOTE | 2023-09-27 09:08 | HO.PSYCHPN ---
Subjective Subjective Date of Service: 09/27/23 Reason For Visit: crisis Subjective Notes: Conditional Voluntary Interim History: Reviewed with . Active and social; reports feeling good ; interested in speaking to someone regarding smoking cessation. She is hoping to be discharged before Thanksgiving. Asking to be placed Campral to help with her increased ETOH use; risks/benefits discussed. denies SI/HI/VH/AH. depakote level to be drawn tomorrow. Medication Compliance: Yes Side effects from medications: No Attending Groups: Intermittent Review of Systems Constitutional: Reports as per HPI Eyes: Reports as per HPI Reports as per HPI Cardiovascular: Reports as per HPI Respiratory: Reports as per HPI Gastrointestinal: Reports as per HPI Genitourinary: Reports as per HPI Musculoskeletal: Reports as per HPI Skin/Breast: Reports as per HPI Reports as per HPI Psychiatric: Reports as per HPI Endocrine: Reports as per HPI Hematologic/Lymphatic: Reports as per HPI Allergic/Immunologic: Reports as per HPI Mental Status Exam Mental Status Exam Narrative: Pt is alert and oriented; behavior is cooperative, friendly and calm; dressed in casual attire; mood is described as good ; eye contact appropriate; Speech is normal rate, volume and prosody and not pressured; no psychomotor agitation/retardation present; thought process is organized and goal directed; Thought content is on tx; otherwise pertinent to relevant topics and without any delusional content, paranoid ideations or grandiosity; denies SI/HI. There is no evidence of perceptual disturbance. Diagnostics Vital Signs (24Hr): Vital Signs - 24 hr 09/26/23 10:50 09/26/23 20:25 09/27/23 08:10 Temperature 98.1 F 98.2 F 98.1 F Pulse Rate 96 73 72 Respiratory Rate 16 16 16 Blood Pressure 116/76 101/58 L 116/59 L Pulse Oximetry 100 98 99 Oxygen Delivery Method Room Air Room Air Room Air BMI result Body Mass Index 28.5 Labs 09/24/23 15:54 09/26/23 08:48 Labs: Laboratory Results - last 48 hr 09/26/23 08:48 Sodium 138 Potassium 4.0 Chloride 109 H Carbon Dioxide 23 Anion Gap 10 L BUN 12 Creatinine 0.87 Estim Creat Clear Calc 77.6 Estimated GFR > 60 Fasting Glucose 64 Calcium 9.4 D Total Bilirubin 0.3 AST 22 ALT 16 Alkaline Phosphatase 44 Total Protein 7.8 Albumin 4.3 Triglycerides 40 Cholesterol 160 LDL Cholesterol, Calc 84 HDL Cholesterol 68 TSH 0.38 [place] < 0.10 L Medications Medications Current Medications Acetaminophen (Acetaminophen 325 Mg Tablet) 650 mg PO Q6H PRN PRN Reason: Headache/Pain Mild Scale (1-3) Al Hydroxide/Mg Hydroxide (Magnesium Hydrox/Alum Hydrox 30 Ml Oral.Susp) 30 ml PO Q6H PRN PRN Reason: Heartburn/Nausea Divalproex Sodium (Divalproex Sodium Er 500 Mg Tab.Er.24h) 1,000 mg PO BEDTIME [facility] Last Admin: 09/26/23 22:39 Dose: 1,000 mg Hydroxyzine HCl (Hydroxyzine Hcl 50 Mg Tablet) 50 mg PO BID [facility] Last Admin: 09/27/23 08:19 Dose: 50 mg Hydroxyzine HCl (Hydroxyzine Hcl 25 Mg Tablet) 25 mg PO Q8H PRN PRN Reason: Anxiety Last Admin: 09/26/23 16:34 Dose: 25 mg Magnesium Hydroxide (Milk Of Magnesia 30 Ml Oral.Susp) 30 ml PO DAILY PRN PRN Reason: Constipation Nicotine (Nicotine 14 Mg Patch.Td24) 14 mg TRANSDERMA DAILY [facility] Last Admin: 09/27/23 08:31 Dose: 14 mg Nicotine Polacrilex (Nicotine Polacrilex 2 Mg Gum) 4 mg BUCCAL Q2H PRN PRN Reason: Nicotine Cravings Risperidone (Risperidone 2 Mg Tablet) 2 mg PO BID [facility] Stop: 10/02/23 09:01 Last Admin: 09/27/23 08:19 Dose: 2 mg Risperidone (Risperidone 0.5 Mg Tablet) 0.5 mg PO Q6H PRN PRN Reason: anxiety/restlessness Last Admin: 09/26/23 22:39 Dose: 0.5 mg Trazodone HCl (Trazodone Hcl 50 Mg Tablet) 50 mg PO BEDTIME MRX1 PRN PRN Reason: Insomnia Allergies Allergies Allergy/AdvReac Type Severity Reaction Status Date / Time quetiapine [From Seroquel] Allergy Hallucinati Verified 09/24/23 14:11 ons Assessment & Plan Assessment & Plan (1) Schizoaffective disorder: Status: Chronic Code(s): F25.9 - Schizoaffective disorder, unspecified (2) Chronic post-traumatic stress disorder (PTSD): Status: Acute Code(s): F43.12 - Post-traumatic stress disorder, chronic (3) Cocaine use disorder: Status: Acute Code(s): F14.10 - Cocaine abuse, uncomplicated Plan Patient is a 43 year old female with hx of schizophrenia, PTSD, and cocaine use d/o with hx of multiple inpatient hospitalizations who was seen in [facility] ER d/t suicidal ideation with plan to jump off a bridge secondary to cocaine use, medication noncompliance and increase in psychiatric symptoms. Plan: CV 15 minute safety checks Continue home medications Refer to outpatient program? 09/27: Active and social; reports feeling good ; interested in speaking to someone regarding smoking cessation. She is hoping to be discharged before . Asking to be placed Campral to help with her increased ETOH use; risks/benefits discussed. denies SI/HI/VH/AH. depakote level to be drawn tomorrow. Start: Campral 333mg PO TID Patient educated on: diagnosis, medication risk/benefits, substance abuse and therapeutic strategies Informed Consent: understands Reason for continued inpatient stay Substantial Risk for: med/psych decompensation Time Spent With Patient Time: Total time managing care of this patient today _30___ minutes.
[2023-09-27] MEDS: Acamprosate Calcium 333 MG TABLET.DR PO ×2 (15:36→22:00)
[2023-09-27] MEDS: hydrOXYzine HCL 25 MG TABLET PO (16:35)
[2023-09-27] MEDS: risperiDONE 0.5 MG TABLET PO (16:35)
[2023-09-27 20:00] VITALS: BP 111/58; PULSE 77; RESP 14; TEMP 36.4; O2SAT 99
[2023-09-27] MEDS: traZODone HCL 50 MG TABLET PO (22:01)
[2023-09-27] MEDS: Divalproex Sodium ER 500 MG TAB.ER.24H 1000 MG PO (22:01)
[2023-09-28 08:25] VITALS: BP 136/63; PULSE 72; RESP 20; TEMP 36.3; O2SAT 99
[2023-09-28] MEDS: risperiDONE 2 MG TABLET PO ×2 (08:25→21:01)
[2023-09-28] MEDS: hydrOXYzine HCL 50 MG TABLET PO ×2 (08:25→21:01)
[2023-09-28] MEDS: Acamprosate Calcium 333 MG TABLET.DR PO ×3 (08:25→21:01)
[2023-09-28] MEDS: Nicotine 14 MG PATCH.TD24 TRANSDERMA (08:25)
[2023-09-28] MEDS: hydrOXYzine HCL 25 MG TABLET PO ×2 (10:25→21:58)
[2023-09-28] MEDS: risperiDONE 0.5 MG TABLET PO ×3 (10:25→22:42)
[2023-09-28] MEDS: Acetaminophen 325 MG TABLET 650 MG PO (15:56)
--- NOTE | 2023-09-28 17:23 | HO.PSYCHPN ---
Subjective Subjective Date of Service: 09/28/23 Reason For Visit: crisis Interim History: Reviewed with RN. Patient has been labile at times. Utilizes headphones and music for coping. Seen on the unit singing loudly to music she is listening to. She feels the Risperidone is helping. She reports good sleep. Denies SI. Review of Systems Review of Systems Constitutional: No fever, chills, fatigue, night sweats, weight changes ENT/Mouth: No ear pain, hearing loss, nasal congestion, sinus pain, rhinorrhea, sore throat Eyes: No eye pain, swelling, redness, vision changes, discharge Cardio: No chest pain, palpitations, MOONEY, orthopnea, peripheral edema Pulm: No SOB, cough, sputum, wheezing, dyspnea, hemoptysis GI: No nausea, vomiting, hematemesis, abdominal pain, diarrhea, constipation, hematochezia, melena : No irregular bleeding, dysuria, frequency, urgency, hesitancy, hematuria MSK: No back pain, neck pain, joint pain, myalgias Skin: No lesions, rashes Neuro: No weakness, numbness, paresthesias, LOC, dizziness, headache Psych: No anxiety/panic, depression, +SI, No HI, AH/VH All other systems reviewed and are negative. Constitutional: Reports as per HPI Eyes: Reports as per HPI Reports as per HPI Cardiovascular: Reports as per HPI Respiratory: Reports as per HPI Gastrointestinal: Reports as per HPI Musculoskeletal: Reports as per HPI Skin/Breast: Reports as per HPI Reports as per HPI Psychiatric: Reports as per HPI Endocrine: Reports as per HPI Hematologic/Lymphatic: Reports as per HPI Allergic/Immunologic: Reports as per HPI Mental Status Exam Mental Status Exam Narrative: Pt is alert and oriented; behavior is cooperative, friendly and calm; dressed in casual attire; mood is described as good ; eye contact appropriate; Speech is normal rate, volume and prosody and not pressured; no psychomotor agitation/retardation present; thought process is organized and goal directed; Thought content is on tx; otherwise pertinent to relevant topics and without any delusional content, paranoid ideations or grandiosity; denies SI/HI. There is no evidence of perceptual disturbance. Diagnostics Vital Signs (24Hr): Vital Signs - 24 hr 09/27/23 20:00 09/28/23 08:25 Temperature 97.5 F 97.3 F Pulse Rate 77 72 Respiratory Rate 14 20 Blood Pressure 111/58 L 136/63 Pulse Oximetry 99 99 Oxygen Delivery Method Room Air Room Air BMI result Body Mass Index 28.5 Labs 09/24/23 15:54 09/26/23 08:48 Medications Medications Current Medications Acamprosate (Acamprosate Calcium 333 Mg Tablet.Dr) 333 mg PO TID [facility] Last Admin: 09/28/23 15:13 Dose: 333 mg Acetaminophen (Acetaminophen 325 Mg Tablet) 650 mg PO Q6H PRN PRN Reason: Headache/Pain Mild Scale (1-3) Last Admin: 09/28/23 15:56 Dose: 650 mg Al Hydroxide/Mg Hydroxide (Magnesium Hydrox/Alum Hydrox 30 Ml Oral.Susp) 30 ml PO Q6H PRN PRN Reason: Heartburn/Nausea Divalproex Sodium (Divalproex Sodium Er 500 Mg Tab.Er.24h) 1,000 mg PO BEDTIME [facility] Last Admin: 09/27/23 22:01 Dose: 1,000 mg Hydroxyzine HCl (Hydroxyzine Hcl 50 Mg Tablet) 50 mg PO BID [facility] Last Admin: 09/28/23 08:25 Dose: 50 mg Hydroxyzine HCl (Hydroxyzine Hcl 25 Mg Tablet) 25 mg PO Q8H PRN PRN Reason: Anxiety Last Admin: 09/28/23 10:25 Dose: 25 mg Magnesium Hydroxide (Milk Of Magnesia 30 Ml Oral.Susp) 30 ml PO DAILY PRN PRN Reason: Constipation Nicotine (Nicotine 14 Mg Patch.Td24) 14 mg TRANSDERMA DAILY [facility] Last Admin: 09/28/23 08:25 Dose: 14 mg Nicotine Polacrilex (Nicotine Polacrilex 2 Mg Gum) 4 mg BUCCAL Q2H PRN PRN Reason: Nicotine Cravings Risperidone (Risperidone 2 Mg Tablet) 2 mg PO BID [facility] Stop: 10/02/23 09:01 Last Admin: 09/28/23 08:25 Dose: 2 mg Risperidone (Risperidone 0.5 Mg Tablet) 0.5 mg PO Q6H PRN PRN Reason: anxiety/restlessness Last Admin: 09/28/23 16:53 Dose: 0.5 mg Trazodone HCl (Trazodone Hcl 50 Mg Tablet) 50 mg PO BEDTIME MRX1 PRN PRN Reason: Insomnia Last Admin: 09/27/23 22:01 Dose: 50 mg Allergies Allergies Allergy/AdvReac Type Severity Reaction Status Date / Time quetiapine [From Seroquel] Allergy Hallucinati Verified 09/24/23 14:11 ons Assessment & Plan Assessment & Plan (1) Schizoaffective disorder: Status: Chronic Code(s): F25.9 - Schizoaffective disorder, unspecified (2) Chronic post-traumatic stress disorder (PTSD): Status: Acute Code(s): F43.12 - Post-traumatic stress disorder, chronic (3) Cocaine use disorder: Status: Acute Code(s): F14.10 - Cocaine abuse, uncomplicated Plan Patient is a 43 year old female with hx of schizophrenia, PTSD, and cocaine use d/o with hx of multiple inpatient hospitalizations who was seen in [facility] d/t suicidal ideation with plan to jump off a bridge secondary to cocaine use, medication noncompliance and increase in psychiatric symptoms. Plan: CV 15 minute safety checks Continue home medications Refer to outpatient program? 09/27: Active and social; reports feeling good ; interested in speaking to someone regarding smoking cessation. She is hoping to be discharged before Thanksgiving. Asking to be placed Campral to help with her increased ETOH use; risks/benefits discussed. denies SI/HI/VH/AH. depakote level to be drawn tomorrow. Start: Campral 333mg PO TID 09/28:Continue current management and treatment plan. Reason for continued inpatient stay Substantial Risk for: harm to self and rapid decompensation Time Spent With Patient Time: Total time managing care of this patient today ____ minutes.
[2023-09-28 20:10] VITALS: BP 118/72; PULSE 84; RESP 15; TEMP 36.6; O2SAT 98
[2023-09-28] MEDS: Divalproex Sodium ER 500 MG TAB.ER.24H 1000 MG PO (21:00)
[2023-09-28] MEDS: traZODone HCL 50 MG TABLET PO (21:00)
[2023-09-29] MEDS: Acetaminophen 325 MG TABLET 650 MG PO ×2 (02:12→08:49)
[2023-09-29] MEDS: hydrOXYzine HCL 50 MG TABLET PO ×3 (02:49→21:42)
[2023-09-29] MEDS: risperiDONE 1 MG TABLET PO ×2 (02:49→11:39)
[2023-09-29 07:33] LABS: Valproate 72.9 mcg/mL (50.0-100.0)
[2023-09-29 08:37] VITALS: BP 124/67; PULSE 83; RESP 18; TEMP 36.8
[2023-09-29] MEDS: risperiDONE 2 MG TABLET PO (08:40)
[2023-09-29] MEDS: Acamprosate Calcium 333 MG TABLET.DR PO ×3 (08:40→21:42)
[2023-09-29] MEDS: Nicotine 14 MG PATCH.TD24 TRANSDERMA (08:41)
[2023-09-29] MEDS: busPIRone HCl 10 MG TABLET PO ×2 (12:12→21:42)
[2023-09-29] MEDS: risperiDONE 0.5 MG TABLET PO (14:53)
--- NOTE | 2023-09-29 16:08 | P.PNPSI_ITS ---
Subjective Subjective Date of Service: 09/29/23 Reason For Visit: crisis Interim History: Reviewed with RN. Didn't sleep well last night and was up until 2-3 AM. Said she was having AH. Says she was on Risperidone as high as 4 mg BID. She requested an increase in current dose. She also reported anxiety that was responsive to Buspar. She is visible on the unit. Denies SI. Review of Systems Review of Systems Constitutional: No fever, chills, fatigue, night sweats, weight changes ENT/Mouth: No ear pain, hearing loss, nasal congestion, sinus pain, rhinorrhea, sore throat Eyes: No eye pain, swelling, redness, vision changes, discharge Cardio: No chest pain, palpitations, MOONEY, orthopnea, peripheral edema Pulm: No SOB, cough, sputum, wheezing, dyspnea, hemoptysis GI: No nausea, vomiting, hematemesis, abdominal pain, diarrhea, constipation, hematochezia, melena : No irregular bleeding, dysuria, frequency, urgency, hesitancy, hematuria MSK: No back pain, neck pain, joint pain, myalgias Skin: No lesions, rashes Neuro: No weakness, numbness, paresthesias, LOC, dizziness, headache Psych: No anxiety/panic, depression, +SI, No HI, AH/VH All other systems reviewed and are negative. Constitutional: Reports as per HPI Eyes: Reports as per HPI Reports as per HPI Cardiovascular: Reports as per HPI Respiratory: Reports as per HPI Gastrointestinal: Reports as per HPI Musculoskeletal: Reports as per HPI Skin/Breast: Reports as per HPI Reports as per HPI Psychiatric: Reports as per HPI Endocrine: Reports as per HPI Hematologic/Lymphatic: Reports as per HPI Allergic/Immunologic: Reports as per HPI Mental Status Exam Mental Status Exam Narrative: Pt is alert and oriented; behavior is cooperative, friendly and calm; dressed in casual attire; mood is described as good ; eye contact appropriate; Speech is normal rate, volume and prosody and not pressured; no psychomotor agitation/retardation present; thought process is organized and goal directed; Thought content is on tx; otherwise pertinent to relevant topics and without any delusional content, paranoid ideations or grandiosity; denies SI/HI. There is no evidence of perceptual disturbance. Diagnostics Vital Signs (24Hr): Vital Signs - 24 hr 09/28/23 20:10 09/29/23 08:37 Temperature 97.8 F 98.2 F Pulse Rate 84 83 Respiratory Rate 15 18 Blood Pressure 118/72 124/67 Pulse Oximetry 98 Oxygen Delivery Method Room Air BMI result Body Mass Index 28.5 Labs 09/24/23 15:54 09/26/23 08:48 Labs: Laboratory Results - last 48 hr 09/29/23 07:08 Valproic Acid 72.9 Medications Medications Current Medications Acamprosate (Acamprosate Calcium 333 Mg Tablet.Dr) 333 mg PO TID [facility] Last Admin: 09/29/23 14:53 Dose: 333 mg Acetaminophen (Acetaminophen 325 Mg Tablet) 650 mg PO Q6H PRN PRN Reason: Headache/Pain Mild Scale (1-3) Last Admin: 09/29/23 08:49 Dose: 650 mg Al Hydroxide/Mg Hydroxide (Magnesium Hydrox/Alum Hydrox 30 Ml Oral.Susp) 30 ml PO Q6H PRN PRN Reason: Heartburn/Nausea Buspirone HCl (Buspirone Hcl 10 Mg Tablet) 10 mg PO BID [facility] Last Admin: 09/29/23 12:12 Dose: 10 mg Divalproex Sodium (Divalproex Sodium Er 500 Mg Tab.Er.24h) 1,000 mg PO BEDTIME [facility] Last Admin: 09/28/23 21:00 Dose: 1,000 mg Hydroxyzine HCl (Hydroxyzine Hcl 50 Mg Tablet) 50 mg PO BID [facility] Last Admin: 09/29/23 08:40 Dose: 50 mg Hydroxyzine HCl (Hydroxyzine Hcl 25 Mg Tablet) 25 mg PO Q8H PRN PRN Reason: Anxiety Last Admin: 09/28/23 21:58 Dose: 25 mg Magnesium Hydroxide (Milk Of Magnesia 30 Ml Oral.Susp) 30 ml PO DAILY PRN PRN Reason: Constipation Nicotine (Nicotine 14 Mg Patch.Td24) 14 mg TRANSDERMA DAILY [facility] Last Admin: 09/29/23 08:41 Dose: 14 mg Nicotine Polacrilex (Nicotine Polacrilex 2 Mg Gum) 4 mg BUCCAL Q2H PRN PRN Reason: Nicotine Cravings Risperidone (Risperidone 0.5 Mg Tablet) 0.5 mg PO Q6H PRN PRN Reason: anxiety/restlessness Last Admin: 09/29/23 14:53 Dose: 0.5 mg Risperidone (Risperidone 3 Mg Tablet) 3 mg PO BID [facility] Trazodone HCl (Trazodone Hcl 50 Mg Tablet) 50 mg PO BEDTIME MRX1 PRN PRN Reason: Insomnia Last Admin: 09/28/23 21:00 Dose: 50 mg Allergies Allergies Allergy/AdvReac Type Severity Reaction Status Date / Time quetiapine [From Seroquel] Allergy Hallucinati Verified 09/24/23 14:11 ons Assessment & Plan Assessment & Plan (1) Schizoaffective disorder: Status: Chronic Code(s): F25.9 - Schizoaffective disorder, unspecified (2) Chronic post-traumatic stress disorder (PTSD): Status: Acute Code(s): F43.12 - Post-traumatic stress disorder, chronic (3) Cocaine use disorder: Status: Acute Code(s): F14.10 - Cocaine abuse, uncomplicated Plan Patient is a 43 year old female with hx of schizophrenia, PTSD, and cocaine use d/o with hx of multiple inpatient hospitalizations who was seen in [facility] d/t suicidal ideation with plan to jump off a bridge secondary to cocaine use, medication noncompliance and increase in psychiatric symptoms. Plan: CV 15 minute safety checks Continue home medications Refer to outpatient program? 09/27: Active and social; reports feeling good ; interested in speaking to someone regarding smoking cessation. She is hoping to be discharged before . Asking to be placed Campral to help with her increased ETOH use; risks/benefits discussed. denies SI/HI/VH/AH. depakote level to be drawn tomorrow. Start: Campral 333mg PO TID 09/28:Continue current management and treatment plan. 09/29: Increase Risperidone to 3 mg BID. Consider further titration. Start Buspar 10 mg BID. Reason for continued inpatient stay Substantial Risk for: harm to self, inability to function and rapid decompensation Time Spent With Patient Time: Total time managing care of this patient today ____ minutes.
[2023-09-29 18:00] VITALS: BP 113/55; PULSE 83; RESP 18; TEMP 36.1; O2SAT 100
[2023-09-29] MEDS: risperiDONE 3 MG TABLET PO (21:42)
[2023-09-29] MEDS: Divalproex Sodium ER 500 MG TAB.ER.24H 1000 MG PO (21:42)
[2023-09-30 07:30] VITALS: BP 102/63; PULSE 92; RESP 16; TEMP 36.6; O2SAT 95
[2023-09-30] MEDS: Acamprosate Calcium 333 MG TABLET.DR PO ×3 (08:18→20:15)
[2023-09-30] MEDS: hydrOXYzine HCL 50 MG TABLET PO ×2 (08:18→20:15)
[2023-09-30] MEDS: busPIRone HCl 10 MG TABLET PO ×2 (08:18→20:15)
[2023-09-30] MEDS: Nicotine 14 MG PATCH.TD24 TRANSDERMA (08:18)
[2023-09-30] MEDS: risperiDONE 3 MG TABLET PO ×2 (08:18→20:15)
--- NOTE | 2023-09-30 09:55 | P.PNPSI_ITS ---
Subjective Subjective Date of Service: 09/30/23 Reason For Visit: crisis Subjective Notes: Conditional Voluntary Interim History: Reviewed in team and . Patient reports feeling good today. social with peers and staff. Pt stated, the buspar works well and the increase in the risperidal helps with my voices because I was having them over the weekend but now it's cleared . Pt reports she plans on attending NA/AA meetings when discharged. Valporic acid level: 79.9 on 09/29/23. Patient to discharge home tomorrow and follow up with outpatient providers. Medication Compliance: Yes Side effects from medications: No Attending Groups: Yes Review of Systems Constitutional: Reports as per HPI Eyes: Reports as per HPI Reports as per HPI Cardiovascular: Reports as per HPI Respiratory: Reports as per HPI Gastrointestinal: Reports as per HPI Genitourinary: Reports as per HPI Musculoskeletal: Reports as per HPI Skin/Breast: Reports as per HPI Reports as per HPI Psychiatric: Reports as per HPI Endocrine: Reports as per HPI Hematologic/Lymphatic: Reports as per HPI Allergic/Immunologic: Reports as per HPI Mental Status Exam Mental Status Exam Narrative: Pt is alert and oriented; behavior is cooperative, friendly and calm; dressed in casual attire; mood is described as good ; eye contact appropriate; Speech is normal rate, volume and prosody and not pressured; no psychomotor agitation/retardation present; thought process is organized and goal directed; Thought content is on tx; otherwise pertinent to relevant topics and without any delusional content, paranoid ideations or grandiosity; denies SI/HI. There is no evidence of perceptual disturbance. Patients insight and judgment are fair. Diagnostics Vital Signs (24Hr): Vital Signs - 24 hr 09/29/23 18:00 09/30/23 07:30 Temperature 97.0 F 97.9 F Pulse Rate 83 92 Respiratory Rate 18 16 Blood Pressure 113/55 L 102/63 Pulse Oximetry 100 95 Oxygen Delivery Method Room Air Room Air BMI result Body Mass Index 28.5 Labs 09/24/23 15:54 09/26/23 08:48 Labs: Laboratory Results - last 48 hr 09/29/23 07:08 Valproic Acid 72.9 Medications Medications Current Medications Acamprosate (Acamprosate Calcium 333 Mg Tablet.) 333 mg PO TID [facility] Last Admin: 09/30/23 08:18 Dose: 333 mg Acetaminophen (Acetaminophen 325 Mg Tablet) 650 mg PO Q6H PRN PRN Reason: Headache/Pain Mild Scale (1-3) Last Admin: 09/29/23 08:49 Dose: 650 mg Al Hydroxide/Mg Hydroxide (Magnesium Hydrox/Alum Hydrox 30 Ml Oral.Susp) 30 ml PO Q6H PRN PRN Reason: Heartburn/Nausea Buspirone HCl (Buspirone Hcl 10 Mg Tablet) 10 mg PO BID [facility] Last Admin: 09/30/23 08:18 Dose: 10 mg Divalproex Sodium (Divalproex Sodium Er 500 Mg Tab.Er.24h) 1,000 mg PO BEDTIME [facility] Last Admin: 09/29/23 21:42 Dose: 1,000 mg Hydroxyzine HCl (Hydroxyzine Hcl 50 Mg Tablet) 50 mg PO BID [facility] Last Admin: 09/30/23 08:18 Dose: 50 mg Hydroxyzine HCl (Hydroxyzine Hcl 25 Mg Tablet) 25 mg PO Q8H PRN PRN Reason: Anxiety Last Admin: 09/28/23 21:58 Dose: 25 mg Magnesium Hydroxide (Milk Of Magnesia 30 Ml Oral.Susp) 30 ml PO DAILY PRN PRN Reason: Constipation Nicotine (Nicotine 14 Mg Patch.Td24) 14 mg TRANSDERMA DAILY [facility] Last Admin: 09/30/23 08:18 Dose: 14 mg Nicotine Polacrilex (Nicotine Polacrilex 2 Mg Gum) 4 mg BUCCAL Q2H PRN PRN Reason: Nicotine Cravings Risperidone (Risperidone 0.5 Mg Tablet) 0.5 mg PO Q6H PRN PRN Reason: anxiety/restlessness Last Admin: 09/29/23 14:53 Dose: 0.5 mg Risperidone (Risperidone 3 Mg Tablet) 3 mg PO BID [facility] Last Admin: 09/30/23 08:18 Dose: 3 mg Trazodone HCl (Trazodone Hcl 50 Mg Tablet) 50 mg PO BEDTIME MRX1 PRN PRN Reason: Insomnia Last Admin: 09/28/23 21:00 Dose: 50 mg Allergies Allergies Allergy/AdvReac Type Severity Reaction Status Date / Time quetiapine [From Seroquel] Allergy Hallucinati Verified 09/24/23 14:11 ons Assessment & Plan Assessment & Plan (1) Schizoaffective disorder: Status: Chronic Code(s): F25.9 - Schizoaffective disorder, unspecified (2) Chronic post-traumatic stress disorder (PTSD): Status: Acute Code(s): F43.12 - Post-traumatic stress disorder, chronic (3) Cocaine use disorder: Status: Acute Code(s): F14.10 - Cocaine abuse, uncomplicated Plan Patient is a 43 year old female with hx of schizophrenia, PTSD, and cocaine use d/o with hx of multiple inpatient hospitalizations who was seen in [facility] d/t suicidal ideation with plan to jump off a bridge secondary to cocaine use, medication noncompliance and increase in psychiatric symptoms. Plan: CV 15 minute safety checks Continue home medications Refer to outpatient program? 09/27: Active and social; reports feeling good ; interested in speaking to someone regarding smoking cessation. She is hoping to be discharged before . Asking to be placed Campral to help with her increased ETOH use; risks/benefits discussed. denies SI/HI/VH/AH. depakote level to be drawn tomorrow. Start: Campral 333mg PO TID 09/28:Continue current management and treatment plan. 09/29: Increase Risperidone to 3 mg BID. Consider further titration. Start Buspar 10 mg BID. 09/30:Patient reports feeling good today. social with peers and staff. Pt stated, the buspar works well and the increase in the risperidal helps with my voices because I was having them over the weekend but now it's cleared . Pt reports she plans on attending NA/AA meetings when discharged. Valporic acid level: 79.9 on 09/29/23. Patient to discharge home tomorrow and follow up with outpatient providers. Patient educated on: diagnosis, medication risk/benefits, substance abuse and therapeutic strategies Informed Consent: understands Reason for continued inpatient stay Substantial Risk for: stable for discharge Time Spent With Patient Time: Total time managing care of this patient today _30___ minutes.
[2023-09-30] MEDS: risperiDONE 0.5 MG TABLET PO (15:00)
[2023-09-30 18:00] VITALS: BP 143/76; PULSE 89; RESP 18; TEMP 37.1; O2SAT 100
[2023-09-30] MEDS: Divalproex Sodium ER 500 MG TAB.ER.24H 1000 MG PO (20:15)
[2023-10-01 06:00] VITALS: BP 117/90; PULSE 77; RESP 18; TEMP 36.1; O2SAT 98
[2023-10-01] MEDS: Ondansetron ODT 4 MG TAB.RAPDIS TRANSLINGU (06:40)
--- NOTE | 2023-10-01 06:47 | PC.NURSE ---
Narcisa was noted to be vomiting this morning. she stated that she believed she was vomiting r/t a sandwich she had eaten. new order for Zofran 4mg X's 1
[2023-10-01] MEDS: Nicotine 14 MG PATCH.TD24 TRANSDERMA (08:18)
[2023-10-01] MEDS: risperiDONE 3 MG TABLET PO (08:18)
[2023-10-01] MEDS: hydrOXYzine HCL 50 MG TABLET PO (08:18)
[2023-10-01] MEDS: busPIRone HCl 10 MG TABLET PO (08:18)
[2023-10-01] MEDS: Acamprosate Calcium 333 MG TABLET.DR PO (08:18)
--- NOTE | 2023-10-01 10:03 | P.DS_ITS ---
DS: Providers Provider Date of Service: 10/01/23 Date of admission: 09/25/23 15:19 Date of discharge: 10/01/23 Primary care physician: Unknown Physician Admitting clinician: Renu Tamayo Attending physician on admission: Pierre Perez Attending physician on discharge: Renu Tamayo Discharging clinician: Pierre Perez DS: Diagnosis Discharge Diagnosis (1) Schizoaffective disorder: Status: Chronic (2) Chronic post-traumatic stress disorder (PTSD): Status: Acute (3) Cocaine use disorder: Status: Acute DS: Medications Discharge Medications Home Medications: Previous Rx's Medication Instructions Recorded acamprosate 333 mg tablet,delayed 333 mg PO TID 30 days #90 tabs 10/01/23 release buspirone 10 mg tablet 10 mg PO BID 30 days #60 tabs 10/01/23 divalproex 500 mg tablet,extended 1,000 mg (2 x 500 mg) PO BEDTIME 10/01/23 release 24 hr 30 days #60 tabs hydroxyzine HCl 50 mg tablet 50 mg PO BID 30 days #60 tabs 10/01/23 risperidone 3 mg tablet 3 mg PO BID 30 days #60 tabs 10/01/23 Mental Status Exam Mental Status Exam Narrative: Pt is alert and oriented; behavior is cooperative, friendly and calm; dressed in casual attire; mood is described as good ; eye contact appropriate; Speech is normal rate, volume and prosody and not pressured; no psychomotor agitation/retardation present; thought process is organized and goal directed; Thought content is on tx; otherwise pertinent to relevant topics and without any delusional content, paranoid ideations or grandiosity; denies SI/HI. There is no evidence of perceptual disturbance. Patients insight and judgment are fair. Data Data Completed and Pending Completed studies during hospitalization [Text1]: 09/24/23 09/25/23 09/26/23 15:54 05:20 08:48 WBC 9.5 RBC 3.83 L Hgb 10.7 L Hct 33.2 L MCV 86.7 MCH 27.9 MCHC 32.2 RDW 13.7 Plt Count 334 MPV 9.4 Immature Gran % (Auto) 0.3 Neut % (Auto) 45.8 Lymph % (Auto) 41.4 H [place] % (Auto) 6.4 Eos % (Auto) 5.7 H Baso % (Auto) 0.4 Lymph # (Auto) 3.9 [place] # (Auto) 0.6 Eos # (Auto) 0.5 H Baso # (Auto) 0.0 Abs Immat Gran (auto) 0.03 Absolute Neuts (auto) 4.4 Absolute Nucleated RBC 0.000 Nucleated RBC % (auto) 0.0 Sodium 140 138 Potassium 3.7 4.0 Chloride 108 109 H Carbon Dioxide 24 23 Anion Gap 12 10 L BUN 13 12 Creatinine 0.86 0.87 Estim Creat Clear Calc 76.4 77.6 Estimated GFR > 60 > 60 Random Glucose 101 Fasting Glucose 64 Calcium 8.8 D 9.4 D Magnesium 2.2 Total Bilirubin 0.2 0.3 AST 31 22 ALT 14 16 Alkaline Phosphatase 44 44 Total Protein 6.7 7.8 Albumin 3.7 4.3 Triglycerides 40 Cholesterol 160 LDL Cholesterol, Calc 84 HDL Cholesterol 68 TSH 0.38 Beta HCG, Quant < 2 Urine Color Yellow Urine Appearance Clear Urine pH 5.5 Ur Specific [place] >= 1.030 H Urine Protein Negative Urine Glucose (UA) Negative Urine Ketones Trace Urine Blood Negative Urine Nitrite Negative Ur Leukocyte Esterase Negative Salicylates < 5.0 L Urine Opiates Screen Not Detected Urine Fentanyl Screen Not Detected Acetaminophen < 3 Ur Barbiturates Screen Not Detected Valproic Acid Ur Phencyclidine Scrn Not Detected Ur Amphetamines Screen Not Detected U Benzodiazepines Scrn Not Detected [place] < 0.10 L Urine Cocaine Screen POSITIVE H U Marijuana (THC) Screen POSITIVE H Ethyl Alcohol < 10 COVID-19 ([facility]) Negative COVID-19 Clin Com See Note 09/29/23 07:08 WBC RBC Hgb Hct MCV MCH MCHC RDW Plt Count MPV Immature Gran % (Auto) Neut % (Auto) Lymph % (Auto) [place] % (Auto) Eos % (Auto) Baso % (Auto) Lymph # (Auto) [place] # (Auto) Eos # (Auto) Baso # (Auto) Abs Immat Gran (auto) Absolute Neuts (auto) Absolute Nucleated RBC Nucleated RBC % (auto) Sodium Potassium Chloride Carbon Dioxide Anion Gap BUN Creatinine Estim Creat Clear Calc Estimated GFR Random Glucose Fasting Glucose Calcium Magnesium Total Bilirubin AST ALT Alkaline Phosphatase Total Protein Albumin Triglycerides Cholesterol LDL Cholesterol, Calc HDL Cholesterol TSH Beta HCG, Quant Urine Color Urine Appearance Urine pH Ur Specific [place] Urine Protein Urine Glucose (UA) Urine Ketones Urine Blood Urine Nitrite Ur Leukocyte Esterase Salicylates Urine Opiates Screen Urine Fentanyl Screen Acetaminophen Ur Barbiturates Screen Valproic Acid 72.9 Ur Phencyclidine Scrn Ur Amphetamines Screen U Benzodiazepines Scrn [place] Urine Cocaine Screen U Marijuana (THC) Screen Ethyl Alcohol COVID-19 ([facility]) COVID-19 Clin Com DS: Summary Hospital Course Hospital Course: Patient is a 43 year old female with hx of schizophrenia, PTSD, and cocaine use d/o with hx of multiple inpatient hospitalizations who was seen in [facility] ER d/t suicidal ideation with plan to jump off a bridge secondary to cocaine use, medication noncompliance and increase in psychiatric symptoms. During admission assessment, patient presents calm, cooperative and friendly. Pt stated, I came to the hospital because I feel like the dose of my medication is too low and I didn't want anything bad to happen because I felt unstable . Pt reports she has been medication compliant; however she reports running out of my medications about a week ago and I came here to get a refill . Patient reports she currently lives with her sister but is considering obtaining an apar tment to live by herself. She reports being interested in attending AA/NA meetings but does not want to go to a substance abuse program at this time. Pt reports using cocaine once a week, smoking marijuana;UTOX positive for cocaine and marijuana. Pt was able to verbalize the dangers of her using substances and reports she plans to get clean . Pt reports she would like her medications possibly increased and plans on following up with outpatient providers. denies SI/HI/VH/AH. During hospital stay, home medications were continued. Active and social; reports feeling good ; interested in speaking to someone regarding smoking cessation. She is hoping to be discharged before [place]. Asking to be placed Campral to help with her increased ETOH use; risks/benefits discussed. denies SI/HI/VH/AH. depakote level to be drawn tomorrow. Start: Campral 333mg PO TID Increase Risperidone to 3 mg BID. Consider further titration. Start Buspar 10 mg BID. Patient reports feeling good today. social with peers and staff. Pt stated, the buspar works well and the increase in the risperidal helps with my voices because I was having them over the weekend but now it's cleared . Pt reports she plans on attending NA/AA meetings when discharged. Valporic acid level: 79.9 on 09/29/23. Patient to discharge home and follow up with outpatient providers. denies SI/HI/VH/AH. Time spent discussing smoking cessation with patient: 3 to 10 minutes Status at Discharge Cognitive/behavioral status at discharge: Patient was interviewed prior to discharge and found to be fully oriented and without any SI or HI. Patient has insight and demonstrates good judgment in terms of wanting to pursue treatment. Patient is not in imminent risk of harm to self or others and has a safety plan that includes presenting to the closest ER or calling 911 if feeling unsafe. Patient has been observed closely by nursing and unit staff throughout admission; patient has not engaged in any behaviors that suggest dangerousness to self or others and has demonstrated appropriate behaviors and impulse control. Functional status at discharge: independent ambulation Overall status at discharge: patient is back to baseline Time Spent with Patient Time attestation: Total time managing care of this patient today _30___ minutes. Time spent: Less than 30 minutes Discharge Plan Discharge Anticipated Discharge Date/Time: 10/01/23 11:00 Patient Disposition: Home, Self-Care Discharge Diagnosis: Schizoaffective d/o, PTSD, Cocaine use d/o Referrals: Psych Prescriber: Geremias Shipman ([facility]) [Other] - 10/29/23 9:00 am (Appointment is in person at the office in [place] ) ACCS Clinician: Anali ([facility]) [Other] - 1 Week (Remain in contact with your ACCS team and follow up as needed ) [facility] [Provider Group] - 1 Week Discharge Medications: New acamprosate 333 mg Tablet,Delayed Release (Dr/Ec) 333 mg PO TID 30 Days Qty: 90 0RF buspirone 10 mg Tablet 10 mg PO BID 30 Days Qty: 60 0RF risperidone 3 mg Tablet 3 mg PO BID 30 Days Qty: 60 0RF Continued hydroxyzine HCl 50 mg tablet 50 mg PO BID 30 Days Qty: 60 0RF divalproex 500 mg tablet extended release 24 hr 1,000 mg PO BEDTIME 30 Days Qty: 60 0RF Discontinued risperidone 4 mg tablet 4 mg PO BEDTIME Discharge Orders: Discharge Order (Routine); Ordered 10/01/23 Ordered By: Renu Tamayo Diet: Regular diet Activity on Discharge: As tolerated Stand Alone Forms: Patient Portal Discharge page, Community Support Care Plan Goals: Maintain mood and safe behaviors Take medications as prescribed Continue to pursue sobriety Practice coping skills Continue with outpatient providers and reach out to them as needed Health Concerns: Mood stability and behaviors Sobriety Plan of Treatment: Follow up with your PCP, psychiatric provider and other outpatient providers regarding above concerns Take medications as prescribed Assessment: Patient was interviewed prior to discharge and found to be fully oriented and without any SI or HI. Patient has insight and demonstrates good judgment in terms of wanting to pursue treatment. Patient is not in imminent risk of harm to self or others and has a safety plan that includes presenting to the closest ER or calling 911 if feeling unsafe. Patient has been observed closely by nursing and unit staff throughout admission; patient has not engaged in any behaviors that suggest dangerousness to self or others and has demonstrated appropriate behaviors and impulse control. Discharge Date/Time: 10/01/23 10:30
== END 2023-10-01 10:30 | disposition home or self-care (01) | DRG 885 ==
LOC: HO.ED 18:30 → HO.PADLT16 09-25 15:30
PROVIDERS: Physician Assistant; Psychiatry & Neurology Psychiatry; Admitting Provider Registered Nurse; Emergency Provider Emergency Medicine; Responsible Provider Registered Nurse; Visit Provider Psychiatry & Neurology Psychiatry
DX: F25.9 Schizoaffective disorder, unspecified (principal); R45.851 Suicidal ideations; F43.12 Post-traumatic stress disorder, chronic; F14.10 Cocaine abuse, uncomplicated; F17.210 Nicotine dependence, cigarettes, uncomplicated; Z20.822 Contact with and (suspected) exposure to COVID-19; Z71.6 Tobacco abuse counseling; Z79.899 Other long term (current) drug therapy
CPT/HCPCS: 36415; 80053; 80061; 80143; 80164; 80178; 80179; 80307; 81003; 83735; 84443; 84702; 85025; 87635; 93005; 99285; S9485

== ENCOUNTER → 2023-09-25 15:19 | Outpatient (BNV) | payer MEDICARE, MEDICAID, SELFPAY | PROVIDERS: Admitting Provider Registered Nurse; Emergency Provider Emergency Medicine; Responsible Provider Registered Nurse; Visit Provider Registered Nurse | DX: F25.1 Schizoaffective disorder, depressive type (principal); F14.10 Cocaine abuse, uncomplicated; F43.12 Post-traumatic stress disorder, chronic | CPT/HCPCS: 90792; 99231; 99232; 99238 ==

== ENCOUNTER 2024-02-17 09:28 | Inpatient (IN) | payer MEDICARE, MEDICAID, SELFPAY ==
--- NOTE | 2024-02-17 09:31 | ED.GENADULT ---
HPI - General Adult General Chief complaint: Psychiatric Symptoms Stated complaint: AGGRAVATED,SI THOUGHT JUMP OFF BRIDGE PER EMS Time Seen by Provider: 02/17/24 12:37 Source: patient and EMS Mode of arrival: EMS Limitations: other (talking to self , poor historian) History of Present Illness HPI narrative: 43-year-old female history of PTSD, cocaine use disorder, schizoaffective disorder, anemia presenting via ambulance for auditory and visual hallucinations as well as suicidal ideation with intent to jump off a bridge has been feeling this way for 2 weeks. Tells me that nothing seems to be making it better. Unclear what makes it worse. Denies drugs, alcohol tobacco. Denies medical complaints at this time. Upon history taking it appears as though patient is responding to internal stimuli, speaking to herself. Related Data Home Medications ?Medication ?Instructions ?Recorded ?Confirmed divalproex 500 mg tablet,extended 500 mg PO BID 02/17/24 02/17/24 release 24 hr risperidone 3 mg tablet 4 mg PO BEDTIME 02/17/24 02/17/24 Previous Rx's ?Medication ?Instructions ?Recorded buspirone 10 mg tablet 10 mg PO BID 30 days #60 tabs 10/01/23 Allergies Allergy/AdvReac Type Severity Reaction Status Date / Time quetiapine [From Seroquel] Allergy Hallucinati Verified 09/24/23 14:11 ons haloperidol [From Haldol] AdvReac Hallucinati Verified 02/17/24 09:45 ons Review of Systems Review of Systems: Yes all other systems are reviewed and are negative PMFSH Past Medical History Attestation statement: The following information was validated with the patient. Source: old records reviewed and nursing notes reviewed Medical History Chronic post-traumatic stress disorder (PTSD) Cannabis use disorder, moderate, dependence Cocaine use disorder Schizoaffective disorder Social History Social History Household Members: Family Household Members Other:: sister Housing: Homeless Housing Other:: [address] [facility] Do you presently have visiting nurse or other home services: No Alcohol intake: current Alcohol intake frequency: a few times a week Comment: no additional interventions needed Patient Tobacco Use Status: Current everyday Tobacco user Tobacco use type: Cigarette Cigarette Packs Per Day: 1 Cigarettes Per Day: 20.0 Years Smoked: 5 Smoked in Last 30 Days: Yes e-Cigarette/Vaping Use: Never Used Second Hand Smoke Exposure: No Use of substances other than those prescribed or required for medical reasons: Yes Substance Use Type: Crack/Cocaine Substance Use Frequency: Chronic Longstanding Advance Directives: No Advance Directives Information Provided: No Patient : No service: No Sexual orientation: Straight/Heterosexual Physical Exam ED Vital Signs: Vital Signs - 24 hr 02/17/24 09:40 02/17/24 09:50 02/17/24 15:42 Temperature 97.7 F 97.7 F 98.5 F Pulse Rate 97 97 79 Respiratory Rate 18 18 16 Blood Pressure 122/83 122/83 115/64 Pulse Oximetry 97 96 100 Oxygen Delivery Method Room Air Room Air Room Air BMI result Body Mass Index 21.5 vss Appearance: Alert.? Oriented X3.? No acute distress.? Patient responding to external stimuli and talking to herself Head: Normocephalic, atraumatic, no step-offs or deformities Eyes: Pupils equal, round and reactive to light.? ENT: Pharynx normal.? Neck: Normal inspection.? Neck supple.? CVS: Normal heart rate and rhythm.? Pulses normal.? Respiratory: No respiratory distress.? Breath sounds normal.? Abdomen: Soft and nontender.? Skin: Skin warm and dry.? Normal skin color.? Normal skin turgor.? Extremities: No lower extremity edema.? No calf ttp. 5/5 strength to bilateral upper and lower extremities Neuro: Oriented X 3.? No motor deficit.? No sensory deficit. CN 2-12 intact Course Reevaluation(s) Reevaluation #1: CBC unremarkable. Chemistry no acute findings requiring intervention. UA with infection antibiotics were started. Urine negative. Ethanol negative At this time patient to be placed into observation to allow more time to be evaluated by behavioral health team. At time observation was started patient common cooperative no acute distress will continue to monitor Time: 15:32 Reevaluation #2: physician observation: Patient had an uneventful night, she will have a reevaluation as she was restarted on her medication. Time: 07:44 Medications Administered Generic Name Dose Route Start Last Admin Trade Name Freq PRN Reason Stop Dose Admin Buspirone HCl 10 mg 02/17/24 21:00 02/17/24 20:51 Buspirone Hcl 10 Mg Tablet PO 10 mg BID YUDITH Administration Cefuroxime Axetil 250 mg 02/17/24 21:00 02/17/24 20:51 Cefuroxime Axetil 250 Mg Tablet PO 250 mg BID YUDITH Administration Divalproex Sodium 500 mg 02/17/24 21:00 02/17/24 20:51 Divalproex Sodium Er 500 Mg Tab.Er.24h PO 500 mg BID YUDITH Administration Risperidone 4 mg 02/17/24 21:00 02/17/24 20:51 Risperidone 2 Mg Tablet PO 4 mg BEDTIME YUDITH Administration Discontinued Medications Generic Name Dose Route Start Last Admin Trade Name Freq PRN Reason Stop Dose Admin Lorazepam 2 mg 02/17/24 11:54 02/17/24 11:58 Lorazepam 1 Mg Tablet PO 02/17/24 11:55 2 mg ONCE ONE Administration Olanzapine 5 mg 02/17/24 11:54 02/17/24 11:58 Olanzapine 5 Mg Tablet PO 02/17/24 11:55 5 mg ONCE ONE Administration Medical Decision Making Medical Decision Making [facility] Narrative: 0950 43-year-old female presents with visual, auditory hallucinations and suicidal ideation x2 weeks. Coming in by ambulance. Upon history taking patient is responding to internal stimuli. Physical exam benign. This is likely schizoaffective disorder versus mood disorder versus PTSD versus anxiety versus depression. Unlikely metabolic derangements. Denies medical complaints. No signs of trauma. Plan at this time medical clearance evaluation by care team Differential Diagnosis Differential Diagnoses: The differential diagnosis associated with the presentation includes This is likely schizoaffective disorder versus mood disorder versus PTSD versus anxiety versus depression. Unlikely metabolic derangements. Denies medical complaints. No signs of trauma. Admission/Observation Consideration of admission/observation: Escalation of care including admission/observation considered Lab Data [facility] Lab Attestation statement: I reviewed the patient's lab results. 02/17/24 14:37 02/17/24 14:37 Labs: Lab Results 02/17/24 02/17/24 Range/Units 09:50 14:37 WBC 7.0 (4.8-10.8) X10*3/uL RBC 4.28 (4.20-5.50) X10*6/uL Hgb 11.6 L (12.0-16.0) g/dl Hct 35.5 L (37.0-47.0) % MCV 82.9 (80.0-98.0) fL MCH 27.1 (27.0-33.0) pg MCHC 32.7 (31.0-35.0) g/dl RDW 14.5 (11.0-16.0) % Plt Count 360 (160-400) X10*3/uL MPV 9.7 (9.4-12.3) fL Immature Gran % (Auto) 0.1 (0.0-0.4) % Neut % (Auto) 44.5 L (45-73) % Lymph % (Auto) 41.0 H (20-40) % [place] % (Auto) 6.0 (2-11) % Eos % (Auto) 8.1 H (0-4) % Baso % (Auto) 0.3 (0-2) % Lymph # (Auto) 2.9 (1.2-4.9) X10*3/uL [place] # (Auto) 0.4 (0.1-1.2) X10*3/uL Eos # (Auto) 0.6 H (0.0-0.4) X10*3/uL Baso # (Auto) 0.0 (0.0-0.2) X10*3/uL Abs Immat Gran (auto) 0.01 (0.00-0.03) X10*3/uL Absolute Neuts (auto) 3.1 (2.0-8.3) x10*3/uL Absolute Nucleated RBC 0.000 (0.0-0.012) X10*3/uL Nucleated RBC % (auto) 0.0 (0.0-0.2) /100WBC Sodium 140 (135-145) mmol/L Potassium 3.3 (3.3-5.1) mmol/L Chloride 108 (96-108) mmol/L Carbon Dioxide 25 (22-29) mmol/L Anion Gap 10 L (12-20) BUN 9 (9-16) mg/dL Creatinine 0.79 (0.5-1.4) mg/dL Estim Creat Clear Calc 66.6 Estimated GFR > 60 Random Glucose 155 H (60-115) mg/dL Calcium 8.8 D (8.4-10.2) mg/dL Magnesium 2.1 (1.6-2.6) mg/dL Total Bilirubin 0.3 (0.0-1.0) mg/dL AST 17 (5-31) U/L ALT 9 (0-31) U/L Alkaline Phosphatase 39 (39-117) U/L Total Protein 6.8 (6.5-8.0) g/dL Albumin 3.6 (3.5-5.0) g/dL Urine Color Dark Yellow Urine Appearance Turbid Urine pH 6.0 (5.0-9.0) Ur Specific [place] >= 1.030 H (1.005-1.025) Urine Protein 30 (1+) H (Neg-Trace) mg/dL Urine Glucose (UA) Negative (Negative) mg/dL Urine Ketones >=160 (Negative) mg/dL Urine Blood Trace H (Negative) Urine Nitrite Negative (Negative) Ur Leukocyte Esterase Trace H (Negative) Urine RBC 6-10 H (0-2) /HPF Urine WBC 6-10 H (0-5) /HPF Ur Squamous Epith Cells >20 (0-2) /HPF Urine Bacteria 4+ (None Seen) Hyaline Casts 3-5 (0-2) /LPF Urine Test NEGATIVE (NEGATIVE) Urine Opiates Screen Not Detected (Not Detect) Urine Fentanyl Screen POSITIVE H (Not Detect) Ur Barbiturates Screen Not Detected (Not Detect) Ur Phencyclidine Scrn Not Detected (Not Detect) Ur Amphetamines Screen Not Detected (Not Detect) U Benzodiazepines Scrn Not Detected (Not Detect) Urine Cocaine Screen POSITIVE H (Not Detect) U Marijuana (THC) Screen POSITIVE H (Not Detect) Ethyl Alcohol < 10 mg/dL Social Determinants Patient?s care significantly limited by Social Determinants of Health including: Other Social Determinant of Health Critical Care Time Critical Care Time Critical Care Time: No Discharge Plan Discharge Clinical Impression: Schizoaffective disorder, UTI (urinary tract infection) Patient Disposition: Still a Patient Prescriptions: No Action buspirone 10 mg Tablet 10 mg PO BID 30 Days Qty: 60 0RF risperidone 3 mg tablet 4 mg PO BEDTIME divalproex 500 mg tablet extended release 24 hr 500 mg PO BID Interventions: [place]-Suicide Risk Severity Scale Last Done: 02/17/24 09:57 Print Language: Bengali
[2024-02-17 09:40] VITALS: BP 122/83; PULSE 97; RESP 18; TEMP 36.5; O2SAT 97; BMI 21.5
[2024-02-17 09:50] VITALS: BP 122/83; PULSE 97; RESP 18; TEMP 36.5; O2SAT 96
--- NOTE | 2024-02-17 09:54 | MHC.EDTECH ---
pt refused labwork at this time requesting me to come back later for a second attempt. rn aware
[2024-02-17 10:03] LABS: Appearance Urine Turbid; Color Urine Dark Yellow; Glucose Urine UA Negative (Negative); Leukocyte Esterase Urine Trace (Negative); Nitrite Urine Negative (Negative); Specific Gravity - Urine >= 1.030 (1.005-1.025); UMIC TRIGGER UACC YES; UPreg QC Valid YES; Urine Blood Trace (Negative); Urine Ketones >=160 mg/dL (Negative); Urine Pregnancy NEGATIVE (NEGATIVE); Urine Protein 30 (1+) mg/dL (Neg-Trace)
[2024-02-17 10:06] LABS: Bacteria Urine 4+ (None Seen); Squamous Epithelial Cell Urine >20 /HPF (0-2); UACC Culture Trigger YES
[2024-02-17 10:09] LABS: Amphetamine Screen Urine Not Detected (Not Detect); Barbiturates, Urine Not Detected (Not Detect); Benzodiazepines Screen Urine Not Detected (Not Detect); Cannabinoid Screen Urine POSITIVE (Not Detect); Cocaine Screen Urine POSITIVE (Not Detect); Fentanyl, urine POSITIVE (Not Detect); Opiate Screen Urine Not Detected (Not Detect); Phencyclidine Screen Urine Not Detected (Not Detect)
[2024-02-17] MEDS: OLANZapine 5 MG TABLET PO (11:58)
[2024-02-17] MEDS: LORazepam 1 MG TABLET 2 MG PO (11:58)
--- NOTE | 2024-02-17 12:01 | PC.NURSE ---
Patient was observed with increasing disruptive behaviors as well as signs and symptoms of psychosis to include: cursing and posturing at staff and peers, yelling and screaming at unseen others as well as attempting to slam doors. Provider was made aware of the patients presentation and ordered Ativan 2mg PO and Zyprexa 5mg PO. Medications were offered to patient who willingly accepted and took them. Will continue to monitor for safety.
[2024-02-17 14:52] LABS: MANUAL DIFF FLAG NO
[2024-02-17 14:54] LABS: Basophils Percent Auto 0.3 % (0-2); Eosinophils Absolute Auto 0.6 X10*3/uL (0.0-0.4); Eosinophils Percent Auto 8.1 % (0-4); Hematocrit 35.5 % (37.0-47.0); Hemoglobin 11.6 g/dl (12.0-16.0); Imm Gran Abs Auto 0.01 X10*3/uL (0.00-0.03); Imm Gran Pct Auto 0.1 % (0.0-0.4); Lymphocytes Absolute Auto 2.9 X10*3/uL (1.2-4.9); Mean Corpuscular HGB Conc 32.7 g/dl (31.0-35.0); Mean Corpuscular Hemoglobin 27.1 pg (27.0-33.0); Mean Corpuscular Volume 82.9 fL (80.0-98.0); Mean Platelet Volume 9.7 fL (9.4-12.3); Monocytes Absolute Auto 0.4 X10*3/uL (0.1-1.2); Neutrophils Absolute Auto 3.1 x10*3/uL (2.0-8.3); Neutrophils Percent Auto 44.5 % (45-73); Platelet Count 360 X10*3/uL (160-400); Red Blood Count 4.28 X10*6/uL (4.20-5.50); Red Cell Distribution Width 14.5 % (11.0-16.0)
[2024-02-17 15:23] LABS: Alanine Aminotransferase 9 U/L (0-31); Albumin Level 3.6 g/dL (3.5-5.0); Alkaline Phosphatase 39 U/L (39-117); Anion Gap 10 (12-20); Aspartate Amino Transferase 17 U/L (5-31); Bilirubin Total 0.3 mg/dL (0.0-1.0); Blood Urea Nitrogen 9 mg/dL (9-16); Calcium 8.8 mg/dL (8.4-10.2); Carbon Dioxide 25 mmol/L (22-29); Chloride 108 mmol/L (96-108); Creatinine Clr Calc Pharmacy 66.6; Estimated Glomerular Filt Rate > 60; Ethanol < 10 mg/dL; Glucose Random 155 mg/dL (60-115); Magnesium 2.1 mg/dL (1.6-2.6); Potassium 3.3 mmol/L (3.3-5.1); Sodium 140 mmol/L (135-145); Total Protein 6.8 g/dL (6.5-8.0)
[2024-02-17 15:42] VITALS: BP 115/64; PULSE 79; RESP 16; TEMP 36.9; O2SAT 100
--- NOTE | 2024-02-17 19:14 | PC.NURSE ---
patient appears to remain at rest at present respirations are even and unlabored patient appears in no distress.
[2024-02-17] MEDS: Divalproex Sodium ER 500 MG TAB.ER.24H PO (20:51)
[2024-02-17] MEDS: busPIRone HCl 10 MG TABLET PO (20:51)
[2024-02-17] MEDS: cefuroxime axetiL 250 MG TABLET PO (20:51)
[2024-02-17] MEDS: risperiDONE 2 MG TABLET 4 MG PO (20:51)
[2024-02-18 08:47] VITALS: RESP 14
[2024-02-18 10:10] VITALS: BP 119/68; PULSE 82; RESP 12; TEMP 36.8; O2SAT 98
[2024-02-18] MEDS: busPIRone HCl 10 MG TABLET PO ×2 (10:14→22:11)
[2024-02-18] MEDS: cefuroxime axetiL 250 MG TABLET PO ×2 (10:14→22:11)
[2024-02-18] MEDS: Divalproex Sodium ER 500 MG TAB.ER.24H PO ×2 (10:14→22:10)
--- NOTE | 2024-02-18 10:28 | PC.NURSE ---
PT IS A/O X 3 NO SOB/JOHNNIE NOTED SPEAKS IN FULL SENTENCES. AMB (I) GAIT STEADY IN HALLWAY AND BTB. PT STATES +SI/VISUAL AND AUDITORY HALLUCINATIONS. PT HALF HOUR LATER PT COMES UP TO THE RN STATION AND STATES I AM WELL ENOUGH, PLEASE TELL THAT LADY BECAUSE I WANT TO GO TO DETOX . PT AWARE OF PLAN OF CARE. WILL CONTINUE TO MONITOR.
--- NOTE | 2024-02-18 11:28 | ECG_ITS ---
Test Reason : CHECK QTC INTERVAL Blood Pressure : / mmHG Vent. Rate : 076 BPM Atrial Rate : 076 BPM P-R Int : 124 ms QRS Dur : 080 ms QT Int : 408 ms P-R-T Axes : 015 052 015 degrees QTc Int : 459 ms Normal sinus rhythm Nonspecific T wave abnormality Abnormal ECG When compared with ECG of 25-SEP-2023 05:33, No significant change was found Referred By: Radu Mercer Electronically Signed By:INDIA JOLLY MD
[2024-02-18 14:31] LABS: COVID-19 Test Negative (Negative); IDNOW Serial# 08D9AD1C
--- NOTE | 2024-02-18 15:02 | PC.NURSE ---
RN TO RN REPORT GIVEN TO KIEL. PT AWARE OF PLAN OF CARE FOR TRANSFER TO M3
--- NOTE | 2024-02-18 15:05 | PC.NURSE ---
PT HAS BEEN SWEARING AND TALKING TO HERSELF.
[2024-02-18 15:13] VITALS: BP 109/69; PULSE 87; RESP 19; TEMP 36.8; O2SAT 97
[2024-02-18 16:54] VITALS: BP 122/67; PULSE 74; RESP 16; TEMP 36.4; O2SAT 99
--- NOTE | 2024-02-18 17:09 | PC.ADMIT ---
Narcisa is a 43-year-old female admitted from [facility] Pod to M[facility] on a CV for treatment of schizoaffective d/o bipolar type, cocaine use d/o, cannabis use d/o. Tox screen positive for fentanyl, cocaine and THC. Per crisis eval, pt called EMS due to an increase in AH/VH and SI with plan to stab herself with a knife. Upon arrival to the unit, pt was cooperative with skin check but immediately became paranoid when RN asked if she wanted help removing EKG stickers from her torso. Pt allowed vitals but refused weight check. Pt became increasingly agitated and stated you fucking white bitch, you white people don't know shit. Pt then angrily slammed her bedroom door. Pt's mood is irritable with congruent affect. Pt appears paranoid and was seen self-dialoguing loudly to herself and responding to internal stimuli. Pt declined to participate in admission assessment and said I just need to lay down. Pt placed on 15 minute safety checks.
--- NOTE | 2024-02-18 17:22 | PC.NURSE ---
pt refused flu vaccine and refused to answer questions r/t nicotine use/replacement therapy
[2024-02-18 19:45] VITALS: BP 128/78; PULSE 91; RESP 16; TEMP 36.9; O2SAT 97
[2024-02-18] MEDS: risperiDONE 2 MG TABLET 4 MG PO (22:10)
[2024-02-19 06:00] VITALS: BP 122/56; PULSE 61; RESP 14; TEMP 36.9; O2SAT 98
[2024-02-19 08:23] LABS: Estimated Average Glucose 105 mg/dL; Hemoglobin A1c % 5.3 % (<6.0)
[2024-02-19 08:38] LABS: Cholesterol 124 mg/dL (<200); HDL Cholesterol 53 mg/dL (>40); LDL Cholesterol Calculated 62 mg/dL (<100); Triglycerides 45 mg/dL (<150)
[2024-02-19 08:55] LABS: Free T4 (Free Thyroxine) 0.97 ng/dL (0.71-1.85); Thyroid Stimulating Hormone 0.33 uIU/mL (0.32-4.0)
[2024-02-19 09:08] LABS: Folate 6.4 ng/mL (> or = 4.0); Vitamin B12 858 pg/mL (200-900)
[2024-02-19] MEDS: cefuroxime axetiL 250 MG TABLET PO ×2 (09:12→20:37)
[2024-02-19] MEDS: Divalproex Sodium ER 500 MG TAB.ER.24H PO ×2 (09:13→20:37)
[2024-02-19] MEDS: busPIRone HCl 10 MG TABLET PO ×2 (09:13→20:37)
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
[2024-02-19] MEDS: LORazepam 1 MG TABLET PO (12:01)
[2024-02-19] MEDS: Nicotine 21 MG PATCH.TD24 TRANSDERMA (13:48)
[2024-02-19 19:45] VITALS: BP 119/59; PULSE 65; RESP 18; TEMP 36.9; O2SAT 99
[2024-02-19] MEDS: risperiDONE 2 MG TABLET 4 MG PO (20:36)
[2024-02-20 07:00] VITALS: BMI 25.9
[2024-02-20 08:36] VITALS: BP 117/73; PULSE 77; RESP 16; TEMP 36.4; O2SAT 99
[2024-02-20] MEDS: Nicotine 21 MG PATCH.TD24 TRANSDERMA (08:50)
[2024-02-20] MEDS: Divalproex Sodium ER 500 MG TAB.ER.24H PO ×2 (08:51→21:53)
[2024-02-20] MEDS: busPIRone HCl 10 MG TABLET PO ×2 (08:51→11:47)
[2024-02-20] MEDS: cefuroxime axetiL 250 MG TABLET PO ×2 (08:51→21:53)
[2024-02-20] MEDS: risperiDONE 2 MG TABLET PO (11:24)
[2024-02-20 16:35] LABS: CT PCR NOT DETECTED (Not Detect.); NG PCR NOT DETECTED (Not Detect.)
--- NOTE | 2024-02-20 16:36 | HO.PSYCHPN ---
Subjective Subjective Date of Service: 02/20/24 Reason For Visit: psychosis / si Interim History: asking for more risperidone in the morning, increase in buspar. states [facility] and would like to discharge weds. suggests this is reasonable, as she will have been on VPA for 5 days at that point and labs can be checked. per staff, withdrawn, paranoid, labile. +VH. slept well. Mental Status Exam Mental Status Exam Narrative: Appearance: street clothes, good hygiene, in NAD Behavior: calm, cooperative Psychomotor: no PMA/PMR Speech: clear, normal rate/rhythm/volume, spontaneous TP: linear TC: no paranoid delusions expressed Mood: unknown Affect: constricted, normo-intense, non-labile SI: none expressed HI: none expressed AH: none expressed VH: none expressed Delusions: none expressed Insight/judgment: fair Memory/cog: alert, oriented x 3. Grossly intact to conversational testing. Diagnostics Vital Signs (24Hr): Vital Signs - 24 hr 02/19/24 19:45 02/20/24 08:36 Temperature 98.4 F 97.5 F Pulse Rate 65 77 Respiratory Rate 18 16 Blood Pressure 119/59 L 117/73 Pulse Oximetry 99 99 Oxygen Delivery Method Room Air Room Air BMI result Body Mass Index 25.9 Labs 02/17/24 14:37 02/17/24 14:37 Labs: Laboratory Results - last 48 hr 02/19/24 02/19/24 02/20/24 08:05 08:06 12:35 Estimat Average Glucose 105 Hemoglobin A1c % 5.3 Triglycerides 45 Cholesterol 124 LDL Cholesterol, Calc 62 HDL Cholesterol 53 Vitamin B12 858 Folate 6.4 TSH 0.33 Free T4 0.97 Chlam trachomat DNA PCR NOT DETECTED N.gonorrhoeae DNA (PCR) NOT DETECTED Medications Medications Current Medications Acetaminophen (Acetaminophen 325 Mg Tablet) 650 mg PO Q6H PRN PRN Reason: Headache/Pain Mild Scale (1-3) Al Hydroxide/Mg Hydroxide (Magnesium Hydrox/Alum Hydrox 30 Ml Oral.Susp) 30 ml PO Q6H PRN PRN Reason: Heartburn/Nausea Buspirone HCl (Buspirone Hcl 10 Mg Tablet) 20 mg PO BID YUDITH Cefuroxime Axetil (Cefuroxime Axetil 250 Mg Tablet) 250 mg PO BID YUDITH Last Admin: 02/20/24 08:51 Dose: 250 mg Divalproex Sodium (Divalproex Sodium Er 500 Mg Tab.Er.24h) 500 mg PO BID [facility] Last Admin: 02/20/24 08:51 Dose: 500 mg Hydroxyzine HCl (Hydroxyzine Hcl 25 Mg Tablet) 25 mg PO Q6H PRN PRN Reason: Anxiety Lorazepam (Lorazepam 1 Mg Tablet) 1 mg PO Q2H PRN PRN Reason: CIWA 8-11 Last Admin: 02/19/24 12:01 Dose: 1 mg Lorazepam (Lorazepam 1 Mg Tablet) 2 mg PO Q2H PRN PRN Reason: CIWA 12-15 Lorazepam (Lorazepam 1 Mg Tablet) 3 mg PO Q2H PRN PRN Reason: CIWA > 15; and call Magnesium Hydroxide (Milk Of Magnesia 30 Ml Oral.Susp) 30 ml PO DAILY PRN PRN Reason: Constipation Nicotine (Nicotine 21 Mg Patch.Td24) 21 mg TRANSDERMA DAILY [facility] Last Admin: 02/20/24 08:50 Dose: 21 mg Nicotine Polacrilex (Nicotine Polacrilex 2 Mg Gum) 4 mg BUCCAL Q2H PRN PRN Reason: Nicotine Cravings Risperidone (Risperidone 2 Mg Tablet) 4 mg PO BEDTIME [facility] Last Admin: 02/19/24 20:36 Dose: 4 mg Risperidone (Risperidone 2 Mg Tablet) 2 mg PO DAILY [facility] Last Admin: 02/20/24 11:24 Dose: 2 mg Trazodone HCl (Trazodone Hcl 50 Mg Tablet) 50 mg PO BEDTIME MRX1 PRN PRN Reason: Insomnia Allergies Allergies Allergy/AdvReac Type Severity Reaction Status Date / Time quetiapine [From Seroquel] Allergy Hallucinati Verified 09/24/23 14:11 ons haloperidol [From Haldol] AdvReac Hallucinati Verified 02/17/24 09:45 ons Assessment & Plan Assessment & Plan (1) Cocaine use disorder: Status: Acute Code(s): F14.10 - Cocaine abuse, uncomplicated (2) Chronic post-traumatic stress disorder (PTSD): Status: Acute Code(s): F43.12 - Post-traumatic stress disorder, chronic (3) Cannabis use disorder, moderate, dependence: Status: Acute Code(s): F12.20 - Cannabis dependence, uncomplicated Plan 02/18: continue outpt meds. detox, support sobriety. refer for rehab once detoxed. CIWA with ativan as pt's alcohol consumption is unclear. 02/19: add risperidone 1 mg in the morning, increase buspar dosing to 20 BID. planning to DC to [facility]/PHP next . Reason for continued inpatient stay Substantial Risk for: inability to function and rapid decompensation Time Spent With Patient Time: Total time managing care of this patient today _25___ minutes.
[2024-02-20 16:47] VITALS: BP 110/65; PULSE 78; RESP 16; TEMP 37; O2SAT 99
[2024-02-20] MEDS: LORazepam 1 MG TABLET PO ×2 (16:51→21:53)
[2024-02-20] MEDS: Magnesium Hydrox/Alum Hydrox 30 ML ORAL.SUSP PO (16:51)
[2024-02-20] MEDS: busPIRone HCl 10 MG TABLET 20 MG PO (21:52)
[2024-02-20] MEDS: risperiDONE 2 MG TABLET 4 MG PO (21:53)
[2024-02-20] MEDS: Acetaminophen 325 MG TABLET 650 MG PO (21:53)
[2024-02-20 21:56] VITALS: BP 103/56; PULSE 76; RESP 16; TEMP 37.8; O2SAT 97
[2024-02-20 22:20] VITALS: TEMP 37.3
[2024-02-21 07:55] VITALS: BP 90/56; PULSE 76; RESP 16; TEMP 36.4; O2SAT 97
[2024-02-21] MEDS: Nicotine 21 MG PATCH.TD24 TRANSDERMA (09:27)
[2024-02-21] MEDS: busPIRone HCl 10 MG TABLET 20 MG PO ×2 (09:28→20:26)
[2024-02-21] MEDS: Divalproex Sodium ER 500 MG TAB.ER.24H PO (09:28)
[2024-02-21] MEDS: risperiDONE 2 MG TABLET PO (09:28)
[2024-02-21] MEDS: cefuroxime axetiL 250 MG TABLET PO ×2 (09:28→20:26)
--- NOTE | 2024-02-21 14:53 | HO.PSYCHPN ---
Subjective Subjective Date of Service: 02/21/24 Reason For Visit: psychosis / si Interim History: seeking out MD repeatedly re dispo plan, requests changing repeatedly. ultimately boundary for next weds discharge was held. c/o not feeling well on VPA, says it is making her nauseated. agrees to trial of tegretol. per staff, withdrawn, guarded. no AVH. isolated, snacking. slept 7-8 hours. Mental Status Exam Mental Status Exam Narrative: Appearance: street clothes, good hygiene, in NAD Behavior: calm, cooperative Psychomotor: no PMA/PMR Speech: clear, normal rate/rhythm/volume, spontaneous TP: linear TC: no paranoid delusions expressed Mood: euthymic Affect: full range, normo-intense, non-labile SI: none expressed HI: none expressed AH: none expressed VH: none expressed Delusions: none expressed Insight/judgment: fair Memory/cog: alert, oriented x 3. Grossly intact to conversational testing. Diagnostics Vital Signs (24Hr): Vital Signs - 24 hr 02/20/24 16:47 02/20/24 21:56 02/20/24 22:20 Temperature 98.6 F 100.0 F 99.2 F Pulse Rate 78 76 Respiratory Rate 16 16 Blood Pressure 110/65 103/56 L Pulse Oximetry 99 97 Oxygen Delivery Method Room Air Room Air 02/21/24 07:55 Temperature 97.6 F Pulse Rate 76 Respiratory Rate 16 Blood Pressure 90/56 L Pulse Oximetry 97 Oxygen Delivery Method Room Air BMI result Body Mass Index 25.9 Labs 02/17/24 14:37 02/17/24 14:37 Labs: Laboratory Results - last 48 hr 02/20/24 12:35 Chlam trachomat DNA PCR NOT DETECTED N.gonorrhoeae DNA (PCR) NOT DETECTED Medications Medications Current Medications Acetaminophen (Acetaminophen 325 Mg Tablet) 650 mg PO Q6H PRN PRN Reason: Headache/Pain Mild Scale (1-3) Last Admin: 02/20/24 21:53 Dose: 650 mg Al Hydroxide/Mg Hydroxide (Magnesium Hydrox/Alum Hydrox 30 Ml Oral.Susp) 30 ml PO Q6H PRN PRN Reason: Heartburn/Nausea Last Admin: 02/20/24 16:51 Dose: 30 ml Buspirone HCl (Buspirone Hcl 10 Mg Tablet) 20 mg PO BID YUDITH Last Admin: 02/21/24 09:28 Dose: 20 mg Cefuroxime Axetil (Cefuroxime Axetil 250 Mg Tablet) 250 mg PO BID [facility] Last Admin: 02/21/24 09:28 Dose: 250 mg Divalproex Sodium (Divalproex Sodium Er 500 Mg Tab.Er.24h) 500 mg PO BID [facility] Last Admin: 02/21/24 09:28 Dose: 500 mg Hydroxyzine HCl (Hydroxyzine Hcl 25 Mg Tablet) 25 mg PO Q6H PRN PRN Reason: Anxiety Lorazepam (Lorazepam 1 Mg Tablet) 1 mg PO Q2H PRN PRN Reason: CIWA 8-11 Last Admin: 02/20/24 21:53 Dose: 1 mg Lorazepam (Lorazepam 1 Mg Tablet) 2 mg PO Q2H PRN PRN Reason: CIWA 12-15 Lorazepam (Lorazepam 1 Mg Tablet) 3 mg PO Q2H PRN PRN Reason: CIWA > 15; and call MD Magnesium Hydroxide (Milk Of Magnesia 30 Ml Oral.Susp) 30 ml PO DAILY PRN PRN Reason: Constipation Nicotine (Nicotine 21 Mg Patch.Td24) 21 mg TRANSDERMA DAILY [facility] Last Admin: 02/21/24 09:27 Dose: 21 mg Nicotine Polacrilex (Nicotine Polacrilex 2 Mg Gum) 4 mg BUCCAL Q2H PRN PRN Reason: Nicotine Cravings Risperidone (Risperidone 2 Mg Tablet) 4 mg PO BEDTIME [facility] Last Admin: 02/20/24 21:53 Dose: 4 mg Risperidone (Risperidone 2 Mg Tablet) 2 mg PO DAILY [facility] Last Admin: 02/21/24 09:28 Dose: 2 mg Trazodone HCl (Trazodone Hcl 50 Mg Tablet) 50 mg PO BEDTIME MRX1 PRN PRN Reason: Insomnia Allergies Allergies Allergy/AdvReac Type Severity Reaction Status Date / Time quetiapine [From Seroquel] Allergy Hallucinati Verified 09/24/23 14:11 ons haloperidol [From Haldol] AdvReac Hallucinati Verified 02/17/24 09:45 ons Assessment & Plan Assessment & Plan (1) Cocaine use disorder: Status: Acute Code(s): F14.10 - Cocaine abuse, uncomplicated (2) Chronic post-traumatic stress disorder (PTSD): Status: Acute Code(s): F43.12 - Post-traumatic stress disorder, chronic (3) Cannabis use disorder, moderate, dependence: Status: Acute Code(s): F12.20 - Cannabis dependence, uncomplicated Plan 02/18: continue outpt meds. detox, support sobriety. refer for rehab once detoxed. CIWA with ativan as pt's alcohol consumption is unclear. 02/19: add risperidone 1 mg in the morning, increase buspar dosing to 20 BID. planning to DC to [facility] next . 02/20: DC VPA as pt reports it is making her nauseated. start tegretol [address] DC next weds, despite pt's requesting to leave earlier repeatedly. Reason for continued inpatient stay Substantial Risk for: inability to function and rapid decompensation Time Spent With Patient Time: Total time managing care of this patient today __35__ minutes.
[2024-02-21] MEDS: hydrOXYzine HCL 25 MG TABLET PO (15:44)
[2024-02-21 20:00] VITALS: BP 120/58; PULSE 69; RESP 16; TEMP 36.9; O2SAT 97
[2024-02-21] MEDS: risperiDONE 2 MG TABLET 4 MG PO (20:26)
[2024-02-21] MEDS: carBAMazepine ER 100 MG TAB.ER.12H PO (20:26)
[2024-02-22 07:25] VITALS: BP 112/58; PULSE 60; RESP 14; TEMP 36.9; O2SAT 99
[2024-02-22] MEDS: busPIRone HCl 10 MG TABLET 20 MG PO ×2 (09:25→20:30)
[2024-02-22] MEDS: carBAMazepine ER 100 MG TAB.ER.12H PO ×2 (09:25→20:30)
[2024-02-22] MEDS: cefuroxime axetiL 250 MG TABLET PO ×2 (09:25→20:30)
[2024-02-22] MEDS: risperiDONE 2 MG TABLET PO (09:25)
[2024-02-22] MEDS: Nicotine 21 MG PATCH.TD24 TRANSDERMA (09:25)
--- NOTE | 2024-02-22 11:37 | HO.PSYCHPN ---
Subjective Subjective Date of Service: 02/22/24 Reason For Visit: psychosis / si Interim History: met with patient. Discussed with Nursing. Isolative at times. Med adherent. Labs unremarkable. With card writer hand stated she was feeling fine. Nothing to talk about. No concerns. Medication Compliance: Yes Side effects from medications: No Attending Groups: No Review of Systems Acute medical concerns: No Mental Status Exam Mental Status Exam Narrative: In bed. Fair self-care. Isolative. Affect restricted. Denies depression. No SI or HI. No psychosis or agitation. Insight and judgment fair Diagnostics Vital Signs (24Hr): Vital Signs - 24 hr 02/21/24 20:00 02/22/24 07:25 Temperature 98.5 F 98.5 F Pulse Rate 69 60 Respiratory Rate 16 14 Blood Pressure 120/58 L 112/58 L Pulse Oximetry 97 99 Oxygen Delivery Method Room Air Room Air BMI result Body Mass Index 25.9 Labs 02/17/24 14:37 02/17/24 14:37 Labs: Laboratory Results - last 48 hr 02/20/24 12:35 Chlam trachomat DNA PCR NOT DETECTED N.gonorrhoeae DNA (PCR) NOT DETECTED Medications Medications Current Medications Acetaminophen (Acetaminophen 325 Mg Tablet) 650 mg PO Q6H PRN PRN Reason: Headache/Pain Mild Scale (1-3) Last Admin: 02/20/24 21:53 Dose: 650 mg Al Hydroxide/Mg Hydroxide (Magnesium Hydrox/Alum Hydrox 30 Ml Oral.Susp) 30 ml PO Q6H PRN PRN Reason: Heartburn/Nausea Last Admin: 02/20/24 16:51 Dose: 30 ml Buspirone HCl (Buspirone Hcl 10 Mg Tablet) 20 mg PO BID [facility] Last Admin: 02/22/24 09:25 Dose: 20 mg Carbamazepine (Carbamazepine Er 100 Mg Tab.Er.12h) 100 mg PO BID [facility] Last Admin: 02/22/24 09:25 Dose: 100 mg Cefuroxime Axetil (Cefuroxime Axetil 250 Mg Tablet) 250 mg PO BID [facility] Last Admin: 02/22/24 09:25 Dose: 250 mg Hydroxyzine HCl (Hydroxyzine Hcl 25 Mg Tablet) 25 mg PO Q6H PRN PRN Reason: Anxiety Last Admin: 02/21/24 15:44 Dose: 25 mg Magnesium Hydroxide (Milk Of Magnesia 30 Ml Oral.Susp) 30 ml PO DAILY PRN PRN Reason: Constipation Nicotine (Nicotine 21 Mg Patch.Td24) 21 mg TRANSDERMA DAILY [facility] Last Admin: 02/22/24 09:25 Dose: 21 mg Nicotine Polacrilex (Nicotine Polacrilex 2 Mg Gum) 4 mg BUCCAL Q2H PRN PRN Reason: Nicotine Cravings Risperidone (Risperidone 2 Mg Tablet) 4 mg PO BEDTIME [facility] Last Admin: 02/21/24 20:26 Dose: 4 mg Risperidone (Risperidone 2 Mg Tablet) 2 mg PO DAILY [facility] Last Admin: 02/22/24 09:25 Dose: 2 mg Trazodone HCl (Trazodone Hcl 50 Mg Tablet) 50 mg PO BEDTIME MRX1 PRN PRN Reason: Insomnia Allergies Allergies Allergy/AdvReac Type Severity Reaction Status Date / Time quetiapine [From Seroquel] Allergy Hallucinati Verified 09/24/23 14:11 ons haloperidol [From Haldol] AdvReac Hallucinati Verified 02/17/24 09:45 ons Assessment & Plan Assessment & Plan (1) Cocaine use disorder: Status: Acute Code(s): F14.10 - Cocaine abuse, uncomplicated (2) Chronic post-traumatic stress disorder (PTSD): Status: Acute Code(s): F43.12 - Post-traumatic stress disorder, chronic (3) Cannabis use disorder, moderate, dependence: Status: Acute Code(s): F12.20 - Cannabis dependence, uncomplicated Plan 02/18: continue outpt meds. detox, support sobriety. refer for rehab once detoxed. CIWA with ativan as pt's alcohol consumption is unclear. 02/19: add risperidone 1 mg in the morning, increase buspar dosing to 20 BID. planning to DC to [facility] IOP[facility]PHP next . 02/20: DC VPA as pt reports it is making her nauseated. start tegretol [address] DC next sats, despite pt's requesting to leave earlier repeatedly. 02/21: no changes Reason for continued inpatient stay Substantial Risk for: inability to function Time Spent With Patient Time: Total time managing care of this patient today ____ minutes.
[2024-02-22] MEDS: hydrOXYzine HCL 25 MG TABLET PO (15:59)
[2024-02-22 20:10] VITALS: BP 117/59; PULSE 76; RESP 16; TEMP 36.9; O2SAT 99
[2024-02-22] MEDS: risperiDONE 2 MG TABLET 4 MG PO (20:30)
[2024-02-23 06:00] VITALS: BP 111/69; PULSE 91; RESP 16; TEMP 36.7; O2SAT 99
[2024-02-23] MEDS: busPIRone HCl 10 MG TABLET 20 MG PO ×2 (09:13→20:36)
[2024-02-23] MEDS: cefuroxime axetiL 250 MG TABLET PO ×2 (09:13→20:37)
[2024-02-23] MEDS: risperiDONE 2 MG TABLET PO (09:13)
[2024-02-23] MEDS: carBAMazepine ER 100 MG TAB.ER.12H PO ×2 (09:13→20:36)
[2024-02-23] MEDS: Nicotine 21 MG PATCH.TD24 TRANSDERMA (09:13)
--- NOTE | 2024-02-23 11:39 | P.PNPSI_ITS ---
Subjective Subjective Date of Service: 02/23/24 Reason For Visit: psychosis / si Interim History: met with patient. Discussed with Nursing. Minimal engagement. ?AH last night and verbal outburst. Med adherent. IN bed and stated she was feeling fine. Nothing to talk about. No concerns. Medication Compliance: Yes Side effects from medications: No Attending Groups: No Review of Systems Acute medical concerns: No Review of Systems Review of Systems Yes all other systems are reviewed and are negative Mental Status Exam Mental Status Exam Narrative: In bed. Fair self-care. Isolative. Affect restricted. Denies depression. No SI or HI. No psychosis or agitation. Insight and judgment fair Diagnostics Vital Signs (24Hr): Vital Signs - 24 hr 02/22/24 20:10 02/23/24 06:00 Temperature 98.5 F 98.1 F Pulse Rate 76 91 Respiratory Rate 16 16 Blood Pressure 117/59 L 111/69 Pulse Oximetry 99 99 Oxygen Delivery Method Room Air Room Air BMI result Body Mass Index 25.9 Labs 02/17/24 14:37 02/17/24 14:37 Medications Medications Current Medications Acetaminophen (Acetaminophen 325 Mg Tablet) 650 mg PO Q6H PRN PRN Reason: Headache/Pain Mild Scale (1-3) Last Admin: 02/20/24 21:53 Dose: 650 mg Al Hydroxide/Mg Hydroxide (Magnesium Hydrox/Alum Hydrox 30 Ml Oral.Susp) 30 ml PO Q6H PRN PRN Reason: Heartburn/Nausea Last Admin: 02/20/24 16:51 Dose: 30 ml Buspirone HCl (Buspirone Hcl 10 Mg Tablet) 20 mg PO BID [facility] Last Admin: 02/23/24 09:13 Dose: 20 mg Carbamazepine (Carbamazepine Er 100 Mg Tab.Er.12h) 100 mg PO BID [facility] Last Admin: 02/23/24 09:13 Dose: 100 mg Cefuroxime Axetil (Cefuroxime Axetil 250 Mg Tablet) 250 mg PO BID [facility] Last Admin: 02/23/24 09:13 Dose: 250 mg Hydroxyzine HCl (Hydroxyzine Hcl 25 Mg Tablet) 25 mg PO Q6H PRN PRN Reason: Anxiety Last Admin: 02/22/24 15:59 Dose: 25 mg Magnesium Hydroxide (Milk Of Magnesia 30 Ml Oral.Susp) 30 ml PO DAILY PRN PRN Reason: Constipation Nicotine (Nicotine 21 Mg Patch.Td24) 21 mg TRANSDERMA DAILY [facility] Last Admin: 02/23/24 09:13 Dose: 21 mg Nicotine Polacrilex (Nicotine Polacrilex 2 Mg Gum) 4 mg BUCCAL Q2H PRN PRN Reason: Nicotine Cravings Risperidone (Risperidone 2 Mg Tablet) 4 mg PO BEDTIME [facility] Last Admin: 02/22/24 20:30 Dose: 4 mg Risperidone (Risperidone 2 Mg Tablet) 2 mg PO DAILY [facility] Last Admin: 02/23/24 09:13 Dose: 2 mg Trazodone HCl (Trazodone Hcl 50 Mg Tablet) 50 mg PO BEDTIME MRX1 PRN PRN Reason: Insomnia Allergies Allergies Allergy/AdvReac Type Severity Reaction Status Date / Time quetiapine [From Seroquel] Allergy Hallucinati Verified 09/24/23 14:11 ons haloperidol [From Haldol] AdvReac Hallucinati Verified 02/17/24 09:45 ons Assessment & Plan Assessment & Plan (1) Cocaine use disorder: Status: Acute Code(s): F14.10 - Cocaine abuse, uncomplicated (2) Chronic post-traumatic stress disorder (PTSD): Status: Acute Code(s): F43.12 - Post-traumatic stress disorder, chronic (3) Cannabis use disorder, moderate, dependence: Status: Acute Code(s): F12.20 - Cannabis dependence, uncomplicated Plan 02/18: continue outpt meds. detox, support sobriety. refer for rehab once detoxed. CIWA with ativan as pt's alcohol consumption is unclear. 02/19: add risperidone 1 mg in the morning, increase buspar dosing to 20 BID. planning [facility] . 02/20: DC VPA as pt reports it is making her nauseated. start tegretol [address] DC next sats, despite pt's requesting to leave earlier repeatedly. 02/21: no changes 02/22: no changes Reason for continued inpatient stay Substantial Risk for: inability to function Time Spent With Patient Time: Total time managing care of this patient today ____ minutes.
[2024-02-23 20:00] VITALS: BP 102/56; PULSE 108; RESP 16; TEMP 37.1; O2SAT 98
[2024-02-23] MEDS: risperiDONE 2 MG TABLET 4 MG PO (20:36)
[2024-02-24] MEDS: hydrOXYzine HCL 25 MG TABLET PO ×2 (06:39→16:42)
[2024-02-24] MEDS: risperiDONE 2 MG TABLET PO ×2 (06:39→09:30)
--- NOTE | 2024-02-24 06:42 | PC.NURSE ---
AM risperadl given at this time per patient requested. on rising at 0630 patient tearful and reporting ''the voices and noises won't stop'' ''I'm hearing them all night'' ''the voices hurt'' patient vomited small amount prior to administration of risperdal and PRN hydroxyzine. allowing staff to sit at side offering support.
[2024-02-24 07:23] VITALS: BP 129/78; PULSE 81; RESP 14; TEMP 36.6; O2SAT 97
[2024-02-24] MEDS: Nicotine 21 MG PATCH.TD24 TRANSDERMA (08:25)
[2024-02-24] MEDS: busPIRone HCl 10 MG TABLET 20 MG PO ×2 (08:25→20:49)
[2024-02-24] MEDS: cefuroxime axetiL 250 MG TABLET PO ×2 (08:25→20:49)
[2024-02-24] MEDS: carBAMazepine ER 100 MG TAB.ER.12H PO ×2 (08:25→20:49)
--- NOTE | 2024-02-24 09:05 | ECG_ITS ---
Test Reason : MED CLEARANCE Blood Pressure : / mmHG Vent. Rate : 068 BPM Atrial Rate : 068 BPM P-R Int : 132 ms QRS Dur : 080 ms QT Int : 420 ms P-R-T Axes : 025 055 028 degrees QTc Int : 446 ms Artifact in traing Normal sinus rhythm Septal infarct , age undetermined Abnormal ECG When compared with ECG of 18-FEB-2024 13:46, No significant changes seen Referred By: Alesha Person Electronically Signed By:MATHEUS FLAHERTY
--- NOTE | 2024-02-24 10:47 | P.PNPSI_ITS ---
Subjective Subjective Date of Service: 02/24/24 Reason For Visit: psychosis / si Subjective Notes: Conditional Voluntary Interim History: Pt presents as very restless, pacing, also reporting hearing voices. She asks for increase in risperidone. She was given one time dose of clonazepam to help with restlessness but with understanding that it won't be continued as scheduled medication. At baseline, pt much calmer after few days of admission due to cocaine use. She also asks for olanzapine prn. She denies SI/HI. Diagnostics Vital Signs (24Hr): Vital Signs - 24 hr 02/23/24 20:00 02/24/24 07:23 Temperature 98.7 F 97.9 F Pulse Rate 108 H 81 Respiratory Rate 16 14 Blood Pressure 102/56 L 129/78 Pulse Oximetry 98 97 Oxygen Delivery Method Room Air Room Air BMI result Body Mass Index 25.9 Labs 02/17/24 14:37 02/17/24 14:37 Medications Medications Current Medications Acetaminophen (Acetaminophen 325 Mg Tablet) 650 mg PO Q6H PRN PRN Reason: Headache/Pain Mild Scale (1-3) Last Admin: 02/20/24 21:53 Dose: 650 mg Al Hydroxide/Mg Hydroxide (Magnesium Hydrox/Alum Hydrox 30 Ml Oral.Susp) 30 ml PO Q6H PRN PRN Reason: Heartburn/Nausea Last Admin: 02/20/24 16:51 Dose: 30 ml Buspirone HCl (Buspirone Hcl 10 Mg Tablet) 20 mg PO BID [facility] Last Admin: 02/24/24 08:25 Dose: 20 mg Carbamazepine (Carbamazepine Er 100 Mg Tab.Er.12h) 100 mg PO BID [facility] Last Admin: 02/24/24 08:25 Dose: 100 mg Cefuroxime Axetil (Cefuroxime Axetil 250 Mg Tablet) 250 mg PO BID [facility] Last Admin: 02/24/24 08:25 Dose: 250 mg Hydroxyzine HCl (Hydroxyzine Hcl 25 Mg Tablet) 25 mg PO Q6H PRN PRN Reason: Anxiety Last Admin: 02/24/24 06:39 Dose: 25 mg Magnesium Hydroxide (Milk Of Magnesia 30 Ml Oral.Susp) 30 ml PO DAILY PRN PRN Reason: Constipation Nicotine (Nicotine 21 Mg Patch.Td24) 21 mg TRANSDERMA DAILY [facility] Last Admin: 02/24/24 08:25 Dose: 21 mg Nicotine Polacrilex (Nicotine Polacrilex 2 Mg Gum) 4 mg BUCCAL Q2H PRN PRN Reason: Nicotine Cravings Risperidone (Risperidone 2 Mg Tablet) 4 mg PO BEDTIME [facility] Last Admin: 02/23/24 20:36 Dose: 4 mg Risperidone (Risperidone 2 Mg Tablet) 2 mg PO DAILY [facility] Last Admin: 02/24/24 06:39 Dose: 2 mg Trazodone HCl (Trazodone Hcl 50 Mg Tablet) 50 mg PO BEDTIME MRX1 PRN PRN Reason: Insomnia Allergies Allergies Allergy/AdvReac Type Severity Reaction Status Date / Time quetiapine [From Seroquel] Allergy Hallucinati Verified 09/24/23 14:11 ons haloperidol [From Haldol] AdvReac Hallucinati Verified 02/17/24 09:45 ons Assessment & Plan Assessment & Plan (1) Cocaine use disorder: Status: Acute Code(s): F14.10 - Cocaine abuse, uncomplicated (2) Chronic post-traumatic stress disorder (PTSD): Status: Acute Code(s): F43.12 - Post-traumatic stress disorder, chronic (3) Cannabis use disorder, moderate, dependence: Status: Acute Code(s): F12.20 - Cannabis dependence, uncomplicated (4) Substance induced mood disorder: Status: Acute Code(s): F19.94 - Other psychoactive substance use, unspecified with psychoactive substance-induced mood disorder Plan 02/18: continue outpt meds. detox, support sobriety. refer for rehab once detoxed. CIWA with ativan as pt's alcohol consumption is unclear. 02/19: add risperidone 1 mg in the morning, increase buspar dosing to 20 BID. planning to DC to [facility] IOP/PHP next . 02/20: DC VPA as pt reports it is making her nauseated. start tegretol [address] DC next sats, despite pt's requesting to leave earlier repeatedly. 02/21: no changes 02/22: no changes 02/23 increase risperidone 4mg po BID. pt very restless. will try also baclofen for cocaine cravings if this is in fact driving some of restlessness or if it is more akathisia- which cocaine makes her more prone to. Reason for continued inpatient stay Substantial Risk for: inability to function Time Spent With Patient Time: Total time managing care of this patient today ____ minutes.
[2024-02-24 12:28] LABS: Troponin-I High Sensitivity < 2.7 ng/L (<3.5-17.0)
[2024-02-24] MEDS: clonazePAM 1 MG TABLET 2 MG PO (12:49)
[2024-02-24 15:20] VITALS: BP 114/74; PULSE 84
[2024-02-24] MEDS: Propranolol HCL 10 MG TABLET PO (15:20)
[2024-02-24] MEDS: Baclofen 10 MG TABLET PO ×2 (15:21→20:50)
[2024-02-24] MEDS: risperiDONE 2 MG TABLET 4 MG PO (20:49)
[2024-02-25 07:29] VITALS: BP 119/60; PULSE 87; RESP 14; TEMP 36.8; O2SAT 100
[2024-02-25] MEDS: Nicotine 21 MG PATCH.TD24 TRANSDERMA (08:01)
[2024-02-25] MEDS: risperiDONE 2 MG TABLET 4 MG PO ×2 (08:02→20:33)
[2024-02-25] MEDS: busPIRone HCl 10 MG TABLET 20 MG PO ×2 (08:02→20:32)
[2024-02-25] MEDS: cefuroxime axetiL 250 MG TABLET PO ×2 (08:02→20:33)
[2024-02-25] MEDS: Baclofen 10 MG TABLET PO ×2 (08:03→20:33)
[2024-02-25] MEDS: carBAMazepine ER 100 MG TAB.ER.12H PO ×2 (08:03→20:33)
--- NOTE | 2024-02-25 14:45 | HO.PSYCHPN ---
Subjective Subjective Date of Service: 02/25/24 Reason For Visit: psychosis / si Subjective Notes: Conditional Voluntary Interim History: Pt somewhat anxious pressured asking to leave 02/25 will stay with her sister .denies active si asking for olanzapine prn Mental Status Exam Mental Status Exam Narrative: Appearance: street clothes, good hygiene, in NAD Behavior: cooperative Psychomotor: no PMA/PMR Speech: clear, normal rate/rhythm/volume, spontaneous TP: linear TC: no paranoid delusions expressed ruminating on medical vaginal concerns Mood: anxious Affect: full range, some intrusiveness SI: none expressed HI: none expressed AH: none expressed VH: none expressed Delusions: none expressed Insight/judgment: fair Memory/cog: alert, oriented x 3. Grossly intact to conversational testing. Diagnostics Vital Signs (24Hr): Vital Signs - 24 hr 02/24/24 15:20 02/25/24 07:29 Temperature 98.2 F Pulse Rate 84 87 Respiratory Rate 14 Blood Pressure 114/74 119/60 Pulse Oximetry 100 Oxygen Delivery Method Room Air BMI result Body Mass Index 25.9 Labs 02/17/24 14:37 02/17/24 14:37 Labs: Laboratory Results - last 48 hr 02/24/24 11:57 Hold Purple Top SEE NOTE Troponin I High Sens < 2.7 Medications Medications Current Medications Acetaminophen (Acetaminophen 325 Mg Tablet) 650 mg PO Q6H PRN PRN Reason: Headache/Pain Mild Scale (1-3) Last Admin: 02/20/24 21:53 Dose: 650 mg Al Hydroxide/Mg Hydroxide (Magnesium Hydrox/Alum Hydrox 30 Ml Oral.Susp) 30 ml PO Q6H PRN PRN Reason: Heartburn/Nausea Last Admin: 02/20/24 16:51 Dose: 30 ml Baclofen (Baclofen 10 Mg Tablet) 10 mg PO BID [facility] Last Admin: 02/25/24 08:03 Dose: 10 mg Buspirone HCl (Buspirone Hcl 10 Mg Tablet) 20 mg PO BID [facility] Last Admin: 02/25/24 08:02 Dose: 20 mg Carbamazepine (Carbamazepine Er 100 Mg Tab.Er.12h) 100 mg PO BID [facility] Last Admin: 02/25/24 08:03 Dose: 100 mg Cefuroxime Axetil (Cefuroxime Axetil 250 Mg Tablet) 250 mg PO BID [facility] Stop: 02/25/24 23:59 Last Admin: 02/25/24 08:02 Dose: 250 mg Hydroxyzine HCl (Hydroxyzine Hcl 25 Mg Tablet) 25 mg PO Q6H PRN PRN Reason: Anxiety Last Admin: 02/24/24 16:42 Dose: 25 mg Magnesium Hydroxide (Milk Of Magnesia 30 Ml Oral.Susp) 30 ml PO DAILY PRN PRN Reason: Constipation Nicotine (Nicotine 21 Mg Patch.Td24) 21 mg TRANSDERMA DAILY [facility] Last Admin: 02/25/24 08:01 Dose: 21 mg Nicotine Polacrilex (Nicotine Polacrilex 2 Mg Gum) 4 mg BUCCAL Q2H PRN PRN Reason: Nicotine Cravings Risperidone (Risperidone 2 Mg Tablet) 4 mg PO BID [facility] Last Admin: 02/25/24 08:02 Dose: 4 mg Trazodone HCl (Trazodone Hcl 50 Mg Tablet) 50 mg PO BEDTIME MRX1 PRN PRN Reason: Insomnia Allergies Allergies Allergy/AdvReac Type Severity Reaction Status Date / Time quetiapine [From Seroquel] Allergy Hallucinati Verified 09/24/23 14:11 ons haloperidol [From Haldol] AdvReac Hallucinati Verified 02/17/24 09:45 ons Assessment & Plan Assessment & Plan (1) Schizoaffective disorder: Status: Chronic Code(s): F25.9 - Schizoaffective disorder, unspecified (2) Cocaine use disorder: Status: Acute Code(s): F14.10 - Cocaine abuse, uncomplicated (3) Chronic post-traumatic stress disorder (PTSD): Status: Acute Code(s): F43.12 - Post-traumatic stress disorder, chronic (4) Cannabis use disorder, moderate, dependence: Status: Acute Code(s): F12.20 - Cannabis dependence, uncomplicated (5) Substance induced mood disorder: Status: Acute Code(s): F19.94 - Other psychoactive substance use, unspecified with psychoactive substance-induced mood disorder Plan 02/18: continue outpt meds. detox, support sobriety. refer for rehab once detoxed. CIWA with ativan as pt's alcohol consumption is unclear. 02/19: add risperidone 1 mg in the morning, increase buspar dosing to 20 BID. planning to [facility] next . 02/20: DC VPA as pt reports it is making her nauseated. start tegretol [address] DC next , despite pt's requesting to leave earlier repeatedly. 02/21: no changes 02/22: no changes 02/23 increase risperidone 4mg po BID. pt very restless. will try also baclofen for cocaine cravings if this is in fact driving some of restlessness or if it is more akathisia- which cocaine makes her more prone to. 02/24 ck bv ck trichomonas olanzapine prn risp 4 bid tegretol started Reason for continued inpatient stay Substantial Risk for: inability to function and rapid decompensation Time Spent With Patient Time: Total time managing care of this patient today ____ minutes.
[2024-02-25] MEDS: OLANZapine 5 MG TABLET PO (16:53)
[2024-02-25 17:09] LABS: CT PCR NOT DETECTED (Not Detect.); NG PCR NOT DETECTED (Not Detect.)
[2024-02-25 19:35] VITALS: BP 119/60; PULSE 81; RESP 16; TEMP 37.3; O2SAT 98
[2024-02-25] MEDS: hydrOXYzine HCL 25 MG TABLET PO (20:33)
[2024-02-26 06:00] VITALS: BP 124/80; PULSE 77; RESP 14; TEMP 36.4; O2SAT 100
[2024-02-26] MEDS: Baclofen 10 MG TABLET PO (08:20)
[2024-02-26] MEDS: carBAMazepine ER 100 MG TAB.ER.12H PO (08:20)
[2024-02-26] MEDS: risperiDONE 2 MG TABLET 4 MG PO (08:20)
[2024-02-26] MEDS: busPIRone HCl 10 MG TABLET 20 MG PO (08:20)
[2024-02-26] MEDS: Nicotine 21 MG PATCH.TD24 TRANSDERMA (08:20)
[2024-02-26 09:04] LABS: Carbamazepine Tegretol 5.9 mcg/mL (5.0-12.0)
--- NOTE | 2024-02-26 10:10 | PM.PSYDC ---
DS: Providers Provider Date of Service: 02/26/24 Date of admission: 02/18/24 14:47 Date of discharge: 02/26/24 Primary care physician: Unknown Physician Admitting clinician: Julian Crockett Discharging clinician: Pierre Perez DS: Diagnosis Discharge Diagnosis (1) Schizoaffective disorder: Status: Chronic (2) Cocaine use disorder: Status: Acute (3) Chronic post-traumatic stress disorder (PTSD): Status: Acute (4) Cannabis use disorder, moderate, dependence: Status: Acute (5) Substance induced mood disorder: Status: Acute DS: Medications Discharge Medications Home Medications: Previous Rx's ?Medication ?Instructions ?Recorded baclofen 10 mg tablet 10 mg PO BID 7 days #14 tabs 02/26/24 buspirone 10 mg tablet 20 mg (2 x 10 mg) PO BID 30 days 02/26/24 #120 tabs carbamazepine 100 mg 100 mg PO BID #60 tabs 02/26/24 tablet,extended release,12 hr (Tegretol XR) nicotine (polacrilex) 2 mg gum 2 mg buccal Q2H PRN Nicotine 02/26/24 Cravings #50 ea nicotine 21 mg/24 hr daily 21 mg transdermal DAILY #14 ea 02/26/24 transdermal patch olanzapine 5 mg tablet 5 mg PO BID PRN Hallucinations 30 02/26/24 days #60 tabs propranolol 10 mg tablet 10 mg PO BID PRN 02/26/24 anxiety/restlessness #20 tabs risperidone 4 mg tablet 4 mg PO BID #60 tabs 02/26/24 Mental Status Exam Mental Status Exam Narrative: Appearance: street clothes, good hygiene, in NAD Behavior: cooperative Psychomotor: no PMA/PMR Speech: clear, normal rate/rhythm/volume, spontaneous TP: linear TC: no paranoid delusions expressed ruminating on medical vaginal concerns Mood: anxious Affect: full range, some intrusiveness and lability SI: none expressed HI: none expressed AH: none expressed VH: none expressed Delusions: none expressed Insight/judgment: fair Memory/cog: alert, oriented x 3. Grossly intact to conversational testing. Data Data Completed and Pending Completed studies during hospitalization [Text1]: 02/20/24 02/24/24 02/25/24 12:35 11:57 14:52 Hold Purple Top SEE NOTE Troponin I High Sens < 2.7 Carbamazepine Dora species DNA Pending Chlam trachomat DNA PCR NOT DETECTED NOT DETECTED Gardnerella DNA Probe Pending N.gonorrhoeae DNA (PCR) NOT DETECTED NOT DETECTED Trichomonas DNA Probe Pending 02/26/24 08:17 Hold Purple Top Troponin I High Sens Carbamazepine 5.9 Dora species DNA Chlam trachomat DNA PCR Gardnerella DNA Probe N.gonorrhoeae DNA (PCR) Trichomonas DNA Probe 02/17/24 Unknown Urine clean catch - Urine norris top Urine Culture - Final DS: Summary Hospital Course Hospital Course: Plan 02/18: continue outpt meds. detox, support sobriety. refer for rehab once detoxed. CIWA with ativan as pt's alcohol consumption is unclear. 02/19: add risperidone 1 mg in the morning, increase buspar dosing to 20 BID. [facility] . 02/20: DC VPA as pt reports it is making her nauseated. start tegretol [address] DC next , despite pt's requesting to leave earlier repeatedly. 02/21: no changes 02/22: no changes 02/23 increase risperidone 4mg po BID. pt very restless. will try also baclofen for cocaine cravings if this is in fact driving some of restlessness or if it is more akathisia- which cocaine makes her more prone to. 02/24 ck bv ck trichomonas olanzapine prn risp 4 bid tegretol started Patient with a history of schizoaffective disorder on Risperdal and has asked for an olanzapine p.r.n. which finds helpful. Patient is somewhat anxious mildly pressured states feels stable for discharge denies any thoughts of self-harm referred to a program through [facility]. Discussed with patient she will not have any stability with her mood or psychotic symptoms she continues use of cocaine. Discussed if relapses again would strongly urge rehab setting such as [facility]. She was changed from Depakote to Tegretol on outpatient basis need to be aware of potential drug interactions with Tegretol decreasing antipsychotic levels. Patient denied auditory hallucinations at time of discharge future oriented stating she was initially going to stay with her sister. She did agree to day treatment program she does have an a [facility] team consider long-acting injectable Time Spent with Patient Time attestation: Total time managing care of this patient today ____ minutes. Discharge Plan Discharge Anticipated Discharge Date/Time: 02/26/24 11:36 Patient Disposition: Home, Self-Care Discharge Diagnosis: schizoaffective dx chronic ptsd cocaine use dx marijuana use dx Referrals: Geremias Shipman (Psychiatry) [Other] - 03/10/24 9:40 am (IN OFFICE APPOINTMENT) [facility] [Other] - 1 Week (Clinic will call patient with appointment.) Discharge Medications: New baclofen 10 mg Tablet 10 mg PO BID 7 Days Qty: 14 0RF buspirone 10 mg Tablet 20 mg PO BID 30 Days Qty: 120 0RF nicotine 21 mg/24 hr Patch 24 Hour 21 mg transdermal DAILY Qty: 14 0RF nicotine (polacrilex) 2 mg Gum 2 mg buccal Q2H PRN (Reason: Nicotine Cravings) Qty: 50 0RF carbamazepine [Tegretol XR] 100 mg Tablet Extended Release 12 Hr 100 mg PO BID Qty: 60 0RF olanzapine 5 mg Tablet 5 mg PO BID PRN (Reason: Hallucinations) 30 Days Qty: 60 0RF risperidone 4 mg tablet 4 mg PO BID Qty: 60 0RF propranolol 10 mg tablet 10 mg PO BID PRN (Reason: anxiety/restlessness) Qty: 20 1RF Rx Instructions: can lower blood pressure pulse no more than 2 x day Discontinued buspirone 10 mg Tablet 10 mg PO BID 30 Days Qty: 60 0RF risperidone 3 mg tablet 4 mg PO BEDTIME divalproex 500 mg tablet extended release 24 hr 500 mg PO BID Discharge Orders: Discharge Order (Routine); Ordered 02/26/24 Ordered By: Pierre Perez Diet: Advance to usual diet Activity on Discharge: As tolerated Stand Alone Forms: Patient Portal Discharge page, Community Support Print Language: [place] Care Plan Goals: decrease hallucinations no self harming thoughts improve mood stop /reduce as much as possible cocaine use cocaine increases hallucinations paranoia marijuana will also inc paranoia Health Concerns: vaginal itching results pending Plan of Treatment: medication risperadol for voices olanzapine prn tegretol/carbamazapine for mood [facility] recovery program day tx psychiatric f/u therapy Assessment: pt future oriented feels safe for d/c Discharge Date/Time: 02/26/24 10:40
[2024-02-26 13:55] LABS: BV Int Neg Control Negative (Negative); BV Int Pos Control Positive (Positive)
== END 2024-02-26 10:40 | disposition home or self-care (01) | DRG 885 ==
LOC: HO.ED 15:33 → HO.PADLT16 02-18 15:07
PROVIDERS: Physician Assistant; Psychiatry & Neurology Psychiatry; Social Worker; Admitting Provider Psychiatry & Neurology Psychiatry; Emergency Provider Emergency Medicine; Visit Provider Psychiatry & Neurology Psychiatry
DX: F25.9 Schizoaffective disorder, unspecified (principal); R45.851 Suicidal ideations; F14.10 Cocaine abuse, uncomplicated; F19.94 Other psychoactive substance use, unspecified with psychoactive substance-induced mood disorder; F43.12 Post-traumatic stress disorder, chronic; F17.210 Nicotine dependence, cigarettes, uncomplicated; F12.20 Cannabis dependence, uncomplicated; Z71.6 Tobacco abuse counseling; Z20.822 Contact with and (suspected) exposure to COVID-19; Z79.899 Other long term (current) drug therapy
CPT/HCPCS: 0353U; 36415; 80053; 80061; 80156; 80307; 81001; 81003; 81025; 82607; 82746; 83036; 83735; 84439; 84443; 84484; 85025; 87086; 87480; 87510; 87635; 87660; 93005; 99285; S9485

== ENCOUNTER → 2024-02-18 11:28 | Outpatient (BNV) | payer MEDICARE, MEDICAID, SELFPAY | PROVIDERS: Admitting Provider Psychiatry & Neurology Psychiatry; Emergency Provider Emergency Medicine; Visit Provider Internal Medicine Cardiovascular Disease | DX: R94.31 Abnormal electrocardiogram [ECG] [EKG] (principal) | CPT/HCPCS: 93010 ==

== ENCOUNTER 2024-02-18 14:47 | Outpatient (BNV) | payer MEDICARE, MEDICAID, SELFPAY | END 2024-02-24 09:05 | PROVIDERS: Admitting Provider Psychiatry & Neurology Psychiatry; Emergency Provider Emergency Medicine; Visit Provider Internal Medicine | DX: R94.31 Abnormal electrocardiogram [ECG] [EKG] (principal) | CPT/HCPCS: 93010 ==

== ENCOUNTER → 2024-02-18 14:47 | Outpatient (BNV) | payer MEDICARE, MEDICAID, SELFPAY | PROVIDERS: Admitting Provider Psychiatry & Neurology Psychiatry; Emergency Provider Emergency Medicine; Visit Provider Psychiatry & Neurology Psychiatry | DX: F14.10 Cocaine abuse, uncomplicated (principal); F12.20 Cannabis dependence, uncomplicated; F19.94 Other psychoactive substance use, unspecified with psychoactive substance-induced mood disorder; F43.12 Post-traumatic stress disorder, chronic | CPT/HCPCS: 90792; 99231; 99232 ==

== ENCOUNTER → 2024-02-18 14:47 | Outpatient (BNV) | payer MEDICARE, MEDICAID, SELFPAY | PROVIDERS: Admitting Provider Psychiatry & Neurology Psychiatry; Emergency Provider Emergency Medicine; Visit Provider Psychiatry & Neurology Psychiatry | DX: F25.1 Schizoaffective disorder, depressive type (principal); F14.10 Cocaine abuse, uncomplicated; F12.20 Cannabis dependence, uncomplicated; F43.12 Post-traumatic stress disorder, chronic; F19.94 Other psychoactive substance use, unspecified with psychoactive substance-induced mood disorder | CPT/HCPCS: 99232; 99238 ==

== ENCOUNTER 2024-04-24 09:50 | Inpatient (IN) | payer MEDICARE, MEDICAID, SELFPAY ==
--- NOTE | 2024-04-24 | ECG_ITS ---
Test Reason : ROUTINE Blood Pressure : / mmHG Vent. Rate : 060 BPM Atrial Rate : 060 BPM P-R Int : 130 ms QRS Dur : 086 ms QT Int : 448 ms P-R-T Axes : 017 065 043 degrees QTc Int : 448 ms Normal sinus rhythm with sinus arrhythmia Nonspecific T wave abnormality Abnormal ECG When compared with ECG of 24-FEB-2024 09:34, Criteria for Septal infarct are no longer Present Referred By: Estefania Paredes Electronically Signed By:MATHEUS FLAHERTY
[2024-04-24 09:53] VITALS: BP 117/64; PULSE 79; RESP 18; TEMP 36.5; O2SAT 98; BMI 22.8
--- NOTE | 2024-04-24 10:02 | ED.GENADULT ---
HPI - General Adult General Chief complaint: Psychiatric Symptoms Stated complaint: SI Time Seen by Provider: 04/24/24 10:01 Source: patient Mode of arrival: ambulatory Limitations: no limitations History of Present Illness ED Provider: Jazzmine Hope PA-C HPI narrative: Patient is a 43 year old assigned female at with a history of PTSD, substance use, and schizoaffective disorder presenting to the emergency department today with suicidal ideation. Patient states that she is feeling more suicidal with thoughts of stabbing herself. Patient states that she is hearing voices. Patient states that she has not been taking her medications daily as she should be. Patient denies any dizziness, lightheadedness, abdominal pain, nausea, vomiting, fever, chills, blurry vision, double vision, loss of vision, chest pain, difficulty breathing, shortness of breath, back pain, night sweats, pain with urination, increased urinary frequency, increased urinary urgency, blood in her urine or stool, syncope or a near syncopal episode, recent trauma or falls, bowel incontinence, bladder incontinence, or any other complaints at this time. Relieving factors: none Exacerbating factors: none Associated symptoms: denies other symptoms Treatments prior to arrival: none Related Data Previous Rx's ?Medication ?Instructions ?Recorded baclofen 10 mg tablet 10 mg PO BID 7 days #14 tabs 02/26/24 buspirone 10 mg tablet 20 mg (2 x 10 mg) PO BID 30 days 02/26/24 #120 tabs carbamazepine 100 mg 100 mg PO BID #60 tabs 02/26/24 tablet,extended release,12 hr (Tegretol XR) nicotine (polacrilex) 2 mg gum 2 mg buccal Q2H PRN Nicotine 02/26/24 Cravings #50 ea nicotine 21 mg/24 hr daily 21 mg transdermal DAILY #14 ea 02/26/24 transdermal patch olanzapine 5 mg tablet 5 mg PO BID PRN Hallucinations 30 02/26/24 days #60 tabs propranolol 10 mg tablet 10 mg PO BID PRN 02/26/24 anxiety/restlessness #20 tabs risperidone 4 mg tablet 4 mg PO BID #60 tabs 02/26/24 Allergies Allergy/AdvReac Type Severity Reaction Status Date / Time quetiapine [From Seroquel] Allergy Hallucinati Verified 04/24/24 09:55 ons haloperidol [From Haldol] AdvReac Hallucinati Verified 04/24/24 09:55 ons Review of Systems Constitutional: Constitutional: Reports no additional constitutional complaints, Denies chills, Denies fever(s) and Denies night sweats Eyes: Eyes: Reports no additional eye complaints, Denies blurry vision, Denies change in vision, Denies diplopia, Denies eye discharge, Denies loss of vision and Denies eye pain ENT: Denies dizziness Cardiovascular: Cardiovascular: Reports no additional cardiovascular complaints, Denies chest pain, Denies lightheadedness, Denies Loss of Consciousness and Denies dyspnea Respiratory: Respiratory: Reports no additional respiratory complaints and Denies dyspnea Gastrointestinal: Gastrointestinal: Reports no additional gastrointestinal complaints, Denies abdominal pain, Denies melena, Denies hematochezia, Denies change in bowel habits and Denies change in stool character Genitourinary: Genitourinary: Denies hematuria, Denies urinary frequency, Denies dysuria, Denies urinary incontinence, Denies urinary hesitancy and Denies urinary urgency Musculoskeletal: Musculoskeletal: Reports no additional musculoskeletal complaints, Denies numbness and Denies tingling Neurologic: Denies dizziness, Denies loss of vision, Denies numbness and Denies tingling Psychiatric: Psychiatric: Reports auditory hallucinations, Denies homicidal ideation and Reports suicidal ideation Endocrine: Endocrine: Reports no additional endocrine complaints Hematologic/Lymphatic: Hematologic/Lymphatic: Reports no additional hematologic/lymphatic complaints Allergic/Immunologic: Allergic/Immunologic: Reports no additional allergic/immunologic complaints [facility] Past Medical History Attestation statement: The following information was validated with the patient. Source: old records reviewed and nursing notes reviewed Medical History Suicidal ideation Chronic post-traumatic stress disorder (PTSD) Cannabis use disorder, moderate, dependence Cocaine use disorder Schizoaffective disorder Social History Social History Household Members: None Household Members Other:: sister Housing: Homeless Housing Other:: [address] [place] [address] Do you presently have visiting nurse or other home services: No Alcohol intake: current Alcohol intake frequency: a few times a week Comment: no additional interventions needed Patient Tobacco Use Status: Current everyday Tobacco user Tobacco use type: Cigarette Cigarette Packs Per Day: 1 Cigarettes Per Day: 20.0 Years Smoked: 5 e-Cigarette/Vaping Use: Never Used Second Hand Smoke Exposure: No Substance Use Type: Crack/Cocaine and Marijuana Advance Directives: No Advance Directives Information Provided: Yes Do you have a plan to hurt others: No Plan service: No Sexual orientation: Don't Know Physical Exam ED Vital Signs: Vital Signs - 24 hr 04/24/24 09:53 Temperature 97.7 F Pulse Rate 79 Respiratory Rate 18 Blood Pressure 117/64 Pulse Oximetry 98 Oxygen Delivery Method Room Air BMI result Body Mass Index 22.8 Const General: cooperative, no acute distress, alert and awake Nutritional Appearance: well nourished Orientation/consciousness: patient oriented x3 Limitations: no limitations HENMT Head: Yes normal to inspection and Yes atraumatic Ears: hearing grossly normal bilaterally and external ears normal General nose exam: Normal external nose present, no nasal discharge noted and no epistaxis Face and sinus: Yes normal facial exam, No abrasion and No laceration Mouth: Normal oral and palatal mucosa present, no drooling and no muffled voice Eyes General: appearance normal, both eyes and all related structures Periorbital: periorbital findings normal Eyelids: Yes eyelids normal Conjunctivae: conjunctivae normal Pupils: Equal, round and reactive pupils present EOM: EOMs intact bilaterally Neck Neck: Yes normal visual inspection, Yes full ROM and Yes no lymphadenopathy Chest Chest palpation & inspection: normal inspection of the chest Resp Effort & Inspection: normal respiratory effort and able to speak in complete sentences GI Inspection: Yes normal to inspection Neuro General: patient oriented x3 and moves all extremities Cranial nerves: Yes Equal, round and reactive pupils present Cognition (Neuro): normal cognition Motor exam (neuro): 5/5 motor strength present throughout Sensory Exam: Normal double simultaneous stimulation for sensation Coordination: [id number] test normal Extrem General: Yes normal to inspection, Yes full ROM and Yes capillary refill normal Psych Thought process: Confabulating thought process present Thought content: Suicidality present Medical Decision Making Medical Decision Making MDM Narrative: Patient is a 43 year old assigned female at with a history of PTSD, schizoaffective disorder, and substance use presenting to the emergency department today with suicidal ideation and auditory hallucinations. Patient's physical exam was as noted in the physical exam portion of this note. Patient's blood work was unremarkable. Patient's urine showed a possible UTI however, the patient has no current UTI complaints, will await culture report before initiating treatment. Patient was evaluated by the CARE team who recommended inpatient psychiatric admission. I explained my physical exam findings as well as all test results to the patient. I answered all questions asked by the patient. Patient verbalized agreement and understanding with this treatment plan and admission psychiatric admission. Differential Diagnosis Differential Diagnoses: The differential diagnosis associated with the presentation includes Suicidal ideation Medication non-compliance Schizoaffective disorder Substance abuse Admission/Observation Consideration of admission/observation: Escalation of care including admission/observation considered Patient to be admitted to the psychiatric floor. Consult Healthcare Provider Management of the patient was discussed with: Behavioral Health Provider (spoke to the CARE team as noted in the MDM Rationale portion of this note.) Lab Data [facility] Lab Attestation statement: I reviewed the patient's lab results. My interpretation of these results are in the MDM Rationale portion of this note. 04/24/24 10:22 04/24/24 10:22 Labs: Lab Results 04/24/24 04/24/24 Range/Units 10:22 14:00 WBC 5.2 (4.8-10.8) X10*3/uL RBC 4.22 (4.20-5.50) X10*6/uL Hgb 11.6 L (12.0-16.0) g/dl Hct 35.5 L (37.0-47.0) % MCV 84.1 (80.0-98.0) fL MCH 27.5 (27.0-33.0) pg MCHC 32.7 (31.0-35.0) g/dl RDW 16.0 (11.0-16.0) % Plt Count 326 (160-400) X10*3/uL MPV 9.2 L (9.4-12.3) fL Immature Gran % (Auto) 0.2 (0.0-0.4) % Neut % (Auto) 36.9 L (45-73) % Lymph % (Auto) 41.6 H (20-40) % Miller % (Auto) 9.5 (2-11) % Eos % (Auto) 11.0 H (0-4) % Baso % (Auto) 0.8 (0-2) % Lymph # (Auto) 2.2 (1.2-4.9) X10*3/uL [place] # (Auto) 0.5 (0.1-1.2) X10*3/uL Eos # (Auto) 0.6 H (0.0-0.4) X10*3/uL Baso # (Auto) 0.0 (0.0-0.2) X10*3/uL Abs Immat Gran (auto) 0.01 (0.00-0.03) X10*3/uL Absolute Neuts (auto) 1.9 L (2.0-8.3) x10*3/uL Absolute Nucleated RBC 0.000 (0.0-0.012) X10*3/uL Nucleated RBC % (auto) 0.0 (0.0-0.2) /100WBC Smear Tech's Comments VERIFIED Sodium 141 (135-145) mmol/L Potassium 3.9 (3.3-5.1) mmol/L Chloride 108 (96-108) mmol/L Carbon Dioxide 25 (22-29) mmol/L Anion Gap 12 (12-20) BUN 9 (9-16) mg/dL Creatinine 0.98 (0.5-1.4) mg/dL Estim Creat Clear Calc 59.1 Estimated GFR > 60 Random Glucose 118 H (60-115) mg/dL Calcium 9.2 (8.4-10.2) mg/dL Total Bilirubin 0.2 (0.0-1.0) mg/dL AST 13 (5-31) U/L ALT 9 (0-31) U/L Alkaline Phosphatase 44 (39-117) U/L Total Protein 6.6 (6.5-8.0) g/dL Albumin 3.8 (3.5-5.0) g/dL Urine Color Yellow Urine Appearance Cloudy Urine pH 8.5 (5.0-9.0) Ur Specific [place] 1.020 (1.005-1.025) Urine Protein Trace (Neg-Trace) mg/dL Urine Glucose (UA) Negative (Negative) mg/dL Urine Ketones Trace (Negative) mg/dL Urine Blood Negative (Negative) Urine Nitrite Negative (Negative) Ur Leukocyte Esterase Large (3+) H (Negative) Urine RBC 0-2 (0-2) /HPF Urine WBC 6-10 H (0-5) /HPF Ur Squamous Epith Cells 11-20 (0-2) /HPF Urine Bacteria 1+ (None Seen) Hyaline Casts 0-2 (0-2) /LPF Urine Test NEGATIVE (NEGATIVE) Salicylates < 5.0 L (15-30) mg/dL Acetaminophen < 3 (<30) mcg/mL Ethyl Alcohol < 10 mg/dL Critical Care Time Critical Care Time Critical Care Time: Yes Total Critical Care Time: 32 Attestation: I spent 32 minutes of Critical Care Time with this patient. This does not include time spent on separately reported billable procedures. Discharge Plan Discharge Clinical Impression: Suicidal ideation Patient Disposition: Still a Patient Prescriptions: No Action baclofen 10 mg Tablet 10 mg PO BID 7 Days Qty: 14 0RF buspirone 10 mg Tablet 20 mg PO BID 30 Days Qty: 120 0RF nicotine 21 mg/24 hr Patch 24 Hour 21 mg transdermal DAILY Qty: 14 0RF nicotine (polacrilex) 2 mg Gum 2 mg buccal Q2H PRN (Reason: Nicotine Cravings) Qty: 50 0RF carbamazepine [Tegretol XR] 100 mg Tablet Extended Release 12 Hr 100 mg PO BID Qty: 60 0RF olanzapine 5 mg Tablet 5 mg PO BID PRN (Reason: Hallucinations) 30 Days Qty: 60 0RF risperidone 4 mg tablet 4 mg PO BID Qty: 60 0RF propranolol 10 mg tablet 10 mg PO BID PRN (Reason: anxiety/restlessness) Qty: 20 1RF Rx Instructions: can lower blood pressure pulse no more than 2 x day Print Language: Macedonian
[2024-04-24 10:32] LABS: Basophils Percent Auto 0.8 % (0-2); Eosinophils Absolute Auto 0.6 X10*3/uL (0.0-0.4); Hematocrit 35.5 % (37.0-47.0); Hemoglobin 11.6 g/dl (12.0-16.0); Imm Gran Abs Auto 0.01 X10*3/uL (0.00-0.03); Imm Gran Pct Auto 0.2 % (0.0-0.4); Lymphocytes Absolute Auto 2.2 X10*3/uL (1.2-4.9); Lymphocytes Percent Auto 41.6 % (20-40); MANUAL DIFF FLAG SCAN; Mean Corpuscular HGB Conc 32.7 g/dl (31.0-35.0); Mean Corpuscular Hemoglobin 27.5 pg (27.0-33.0); Mean Corpuscular Volume 84.1 fL (80.0-98.0); Mean Platelet Volume 9.2 fL (9.4-12.3); Monocytes Absolute Auto 0.5 X10*3/uL (0.1-1.2); Monocytes Percent Auto 9.5 % (2-11); Neutrophils Absolute Auto 1.9 x10*3/uL (2.0-8.3); Neutrophils Percent Auto 36.9 % (45-73); Platelet Count 326 X10*3/uL (160-400); Red Blood Count 4.22 X10*6/uL (4.20-5.50); SCAN SMEAR FLAG 1; White Blood Count 5.2 X10*3/uL (4.8-10.8)
[2024-04-24 10:54] LABS: SLIDE REVIEW VERIFIED
[2024-04-24 10:57] LABS: Ethanol < 10 mg/dL
[2024-04-24 11:01] LABS: Acetaminophen LAB < 3 mcg/mL (<30); Salicylate < 5.0 mg/dL (15-30)
[2024-04-24 11:08] LABS: Alanine Aminotransferase 9 U/L (0-31); Albumin Level 3.8 g/dL (3.5-5.0); Anion Gap 12 (12-20); Aspartate Amino Transferase 13 U/L (5-31); Blood Urea Nitrogen 9 mg/dL (9-16); Calcium 9.2 mg/dL (8.4-10.2); Carbon Dioxide 25 mmol/L (22-29); Chloride 108 mmol/L (96-108); Creatinine Clr Calc Pharmacy 59.1; Estimated Glomerular Filt Rate > 60; Glucose Random 118 mg/dL (60-115); Potassium 3.9 mmol/L (3.3-5.1); Sodium 141 mmol/L (135-145); Total Protein 6.6 g/dL (6.5-8.0)
[2024-04-24 11:10] LABS: Alkaline Phosphatase 44 U/L (39-117); Bilirubin Total 0.2 mg/dL (0.0-1.0)
[2024-04-24 14:23] LABS: Appearance Urine Cloudy; Color Urine Yellow; Glucose Urine UA Negative (Negative); Leukocyte Esterase Urine Large (3+) (Negative); Nitrite Urine Negative (Negative); PH 8.5 (5.0-9.0); UMIC TRIGGER UACC YES; UPreg QC Valid YES; Urine Blood Negative (Negative); Urine Ketones Trace mg/dL (Negative); Urine Pregnancy NEGATIVE (NEGATIVE); Urine Protein Trace mg/dL (Neg-Trace)
[2024-04-24 14:27] LABS: Bacteria Urine 1+ (None Seen); Hyaline Casts Urine 0-2 /LPF (0-2); RBC Urine 0-2 /HPF (0-2); UACC Culture Trigger YES
[2024-04-24 14:35] LABS: Amphetamine Screen Urine Not Detected (Not Detect); Barbiturates, Urine Not Detected (Not Detect); Benzodiazepines Screen Urine Not Detected (Not Detect); Buprenorphine Scr Not Detected (Not Detect); Cannabinoid Screen Urine POSITIVE (Not Detect); Cocaine Screen Urine POSITIVE (Not Detect); Fentanyl, urine Not Detected (Not Detect); Methadone Screen, Urine Not Detected (Not Detect); Opiate Screen Urine Not Detected (Not Detect); Oxycodone Screen Urine Not Detected (Not Detect); Phencyclidine Screen Urine Not Detected (Not Detect)
[2024-04-24 15:09] VITALS: BP 107/52; PULSE 58; RESP 16; TEMP 36.4; O2SAT 96
[2024-04-24 15:15] LABS: Valproate < 12.5 mcg/mL (50.0-100.0)
--- NOTE | 2024-04-24 19:09 | PC.ADMIT ---
Addendum entered by Cristobal Juarez RN 04/24/24 19:46: Narcisa is on a CIWA q4hrs. Original Note: Narcisa Loera arrived to the unit at 1830 from [facility] ER via wheelchair, met with Dr. Johnson Conditional Voluntary offered and signed. Sharp check done by card writer hand and female RN, skin appears intact. When asked how she felt stated Not so good, she reports endorsing 7/10 anxiety, she reports auditory hallucinations, when asked if she had any thoughts of wanting to hurt self stated Yes, when asked to elaborate stated Just thoughts, verbalized to look for staff if urge to hurt self occurred. Narcisa reports that she came to the ER due to seeing I felt like I was being stalked, she reports she felt like People were watching me, following me on cars, I didn't feel safe. She reports I couldn't tell if it was real or not. Narcisa has a diagnoses of Schizoaffective Disorder, she is currently on 15 minute checks.
[2024-04-24 19:31] VITALS: BP 133/68; PULSE 69; RESP 18; TEMP 36.5; O2SAT 99
[2024-04-24 19:32] VITALS: BMI 22.7
[2024-04-24] MEDS: risperiDONE 2 MG TABLET 4 MG PO (21:36)
[2024-04-24] MEDS: Divalproex Sodium ER 500 MG TAB.ER.24H 1000 MG PO (21:37)
[2024-04-24] MEDS: OLANZapine 5 MG TABLET PO (21:42)
[2024-04-25 08:00] VITALS: BP 95/53; PULSE 58; RESP 16; TEMP 36.5; O2SAT 98
[2024-04-25 08:30] LABS: Estimated Average Glucose 97 mg/dL
[2024-04-25 08:32] LABS: Cholesterol 139 mg/dL (<200); HDL Cholesterol 51 mg/dL (>40); LDL Cholesterol Calculated 78 mg/dL (<100); Triglycerides 54 mg/dL (<150)
[2024-04-25] MEDS: busPIRone HCl 10 MG TABLET PO ×2 (09:43→21:26)
[2024-04-25] MEDS: risperiDONE 2 MG TABLET PO (09:43)
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
[2024-04-25] MEDS: Nicotine 21 MG PATCH.TD24 TRANSDERMA (12:50)
[2024-04-25 13:27] LABS: CT PCR NOT DETECTED (Not Detect.); NG PCR NOT DETECTED (Not Detect.)
[2024-04-25 15:06] LABS: Bacterial Vaginosis PCR POSITIVE (Negative); Candida Group PCR NOT DETECTED (Not Detect); Candida glab krusei PCR NOT DETECTED (Not Detect); Trichomonas vaginalis PCR DETECTED (Not Detect)
[2024-04-25] MEDS: OLANZapine 5 MG TABLET PO (21:25)
[2024-04-25] MEDS: risperiDONE 2 MG TABLET 4 MG PO (21:25)
[2024-04-25] MEDS: Divalproex Sodium ER 500 MG TAB.ER.24H 1000 MG PO (21:25)
[2024-04-25] MEDS: metroNIDAZOLE 500 MG TABLET PO (21:26)
[2024-04-26 07:53] VITALS: BP 96/59; PULSE 65; RESP 16; TEMP 37.1; O2SAT 98
[2024-04-26] MEDS: busPIRone HCl 10 MG TABLET PO ×2 (08:49→20:13)
[2024-04-26] MEDS: metroNIDAZOLE 500 MG TABLET PO ×2 (08:49→20:12)
[2024-04-26] MEDS: risperiDONE 2 MG TABLET PO (08:49)
--- NOTE | 2024-04-26 12:17 | HO.PSYCHPN ---
Subjective Subjective Date of Service: 04/26/24 Reason For Visit: Psychosis/ SI Interim History: Met with pt; discussed with team pt still feeling depressed but better today, no SI and no AH. Medications well tolerated. She asks to get on Baclofen for cocaine cravings saying she's been on it before. 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 not scoring ciwa; will dc Diagnostics Vital Signs (24Hr): Vital Signs - 24 hr 04/26/24 07:53 Temperature 98.7 F Pulse Rate 65 Respiratory Rate 16 Blood Pressure 96/59 L Pulse Oximetry 98 Oxygen Delivery Method Room Air BMI result Body Mass Index 22.7 Labs 04/24/24 10:22 04/24/24 10:22 Labs: Laboratory Results - last 48 hr 04/24/24 04/24/24 04/25/24 14:00 14:53 07:52 Estimat Average Glucose 97 Hemoglobin A1c % 5.0 Triglycerides 54 Cholesterol 139 LDL Cholesterol, Calc 78 HDL Cholesterol 51 Urine Color Yellow Urine Appearance Cloudy Urine pH 8.5 Ur Specific [place] 1.020 Urine Protein Trace Urine Glucose (UA) Negative Urine Ketones Trace Urine Blood Negative Urine Nitrite Negative Ur Leukocyte Esterase Large (3+) H Urine RBC 0-2 Urine WBC 6-10 H Ur Squamous Epith Cells 11-20 Urine Bacteria 1+ Hyaline Casts 0-2 Urine Test NEGATIVE Urine Opiates Screen Not Detected Ur Buprenorphine Scrn Not Detected Ur Oxycodone Screen Not Detected Urine Methadone Screen Not Detected Urine Fentanyl Screen Not Detected Ur Barbiturates Screen Not Detected Valproic Acid < 12.5 L Ur Phencyclidine Scrn Not Detected Ur Amphetamines Screen Not Detected U Benzodiazepines Scrn Not Detected Urine Cocaine Screen POSITIVE H U Marijuana (THC) Screen POSITIVE H Chlam trachomat DNA PCR N.gonorrhoeae DNA (PCR) T. vaginalis (PCR) Bact Vaginosis (PCR) C. krusei/glabrata (PCR) Dora group (PCR) 04/25/24 Unknown Estimat Average Glucose Hemoglobin A1c % Triglycerides Cholesterol LDL Cholesterol, Calc HDL Cholesterol Urine Color Urine Appearance Urine pH Ur Specific [place] Urine Protein Urine Glucose (UA) Urine Ketones Urine Blood Urine Nitrite Ur Leukocyte Esterase Urine RBC Urine WBC Ur Squamous Epith Cells Urine Bacteria Hyaline Casts Urine Test Urine Opiates Screen Ur Buprenorphine Scrn Ur Oxycodone Screen Urine Methadone Screen Urine Fentanyl Screen Ur Barbiturates Screen Valproic Acid Ur Phencyclidine Scrn Ur Amphetamines Screen U Benzodiazepines Scrn Urine Cocaine Screen U Marijuana (THC) Screen Chlam trachomat DNA PCR NOT DETECTED N.gonorrhoeae DNA (PCR) NOT DETECTED T. vaginalis (PCR) DETECTED A Bact Vaginosis (PCR) POSITIVE A C. krusei/glabrata (PCR) NOT DETECTED Dora group (PCR) NOT DETECTED Medications Medications Current Medications Acetaminophen (Acetaminophen 325 Mg Tablet) 650 mg PO Q6H PRN PRN Reason: Headache/Pain Mild Scale (1-3) Al Hydroxide/Mg Hydroxide (Magnesium Hydrox/Alum Hydrox 30 Ml Oral.Susp) 30 ml PO Q6H PRN PRN Reason: Heartburn/Nausea Buspirone HCl (Buspirone Hcl 10 Mg Tablet) 10 mg PO BID [facility] Last Admin: 04/26/24 08:49 Dose: 10 mg Divalproex Sodium (Divalproex Sodium Er 500 Mg Tab.Er.24h) 1,000 mg PO BEDTIME [facility] Last Admin: 04/25/24 21:25 Dose: 1,000 mg Hydroxyzine HCl (Hydroxyzine Hcl 25 Mg Tablet) 25 mg PO Q6H PRN PRN Reason: Anxiety Lorazepam (Lorazepam 1 Mg Tablet) 1 mg PO Q2H PRN PRN Reason: CIWA 6-10 Lorazepam (Lorazepam 1 Mg Tablet) 2 mg PO Q2H PRN PRN Reason: CIWA 11 and above Magnesium Hydroxide (Milk Of Magnesia 30 Ml Oral.Susp) 30 ml PO DAILY PRN PRN Reason: Constipation Metronidazole (Metronidazole 500 Mg Tablet) 500 mg PO BID [facility] Last Admin: 04/26/24 08:49 Dose: 500 mg Nicotine (Nicotine 21 Mg Patch.Td24) 21 mg TRANSDERMA DAILY PRN PRN Reason: smoking cessation Last Admin: 04/25/24 12:50 Dose: 21 mg Nicotine Polacrilex (Nicotine Polacrilex 2 Mg Gum) 4 mg BUCCAL Q2H PRN PRN Reason: Nicotine Cravings Olanzapine (Olanzapine 5 Mg Tablet) 5 mg PO TID PRN PRN Reason: agitation Last Admin: 04/25/24 21:25 Dose: 5 mg Risperidone (Risperidone 2 Mg Tablet) 4 mg PO BEDTIME [facility] Last Admin: 04/25/24 21:25 Dose: 4 mg Risperidone (Risperidone 2 Mg Tablet) 2 mg PO DAILY [facility] Last Admin: 04/26/24 08:49 Dose: 2 mg Trazodone HCl (Trazodone Hcl 50 Mg Tablet) 50 mg PO BEDTIME MRX1 PRN PRN Reason: Insomnia Allergies Allergies Allergy/AdvReac Type Severity Reaction Status Date / Time quetiapine [From Seroquel] Allergy Hallucinati Verified 04/24/24 09:55 ons haloperidol [From Haldol] AdvReac Hallucinati Verified 04/24/24 09:55 ons Assessment & Plan Assessment & Plan (1) Schizoaffective disorder: Status: Chronic Code(s): F25.9 - Schizoaffective disorder, unspecified (2) Chronic post-traumatic stress disorder (PTSD): Status: Acute Code(s): F43.12 - Post-traumatic stress disorder, chronic (3) Cocaine use disorder: Status: Acute Code(s): F14.10 - Cocaine abuse, uncomplicated Plan Patient is a 43-year-old female with history of schizoaffective disorder, cocaine abuse, PTSD who presents for depression, psychotic symptoms, auditory hallucinations and SI thought to stab herself, in face of relapse with cocaine and being off medications. Patient reports that she was overall doing well, taking her medications until this past week when she relapsed with cocaine abuse. She said there was no trigger she just ended up doing so and for the past week has been bingeing on cocaine, not on her medications. Patient soon started developing auditory hallucinations, got depressed and became suicidal. She self presented to stay safe. Patient reports she wants to get back on her medications since they are helpful. She still has auditory hallucinations which are lingering around but are less intense and she is able to mostly ignore; still has suicidal thoughts but again less intense. Patient says she wants go program after discharge Formulation/clinical reasoning: Patient with similar presentation to past admissions; she has only been off her medications for a week. They were restarted in the ED and symptoms are starting to subside. -patient asked for STD check; positive for Trichomonas BV and started on metronidazole HOspital course: 04/26 better today, no SI and no AH. Medications well tolerated. She asks to get on Baclofen for cocaine cravings saying she's been on it before. 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 -not scoring ciwa; will dc Plan: CV Q 15 minute checks START Baclofen 10mg bid for cocaine cravings Restarted Depakote ER 1000 q.h.s. Restart Risperdal 2 mg daily, Restarted Risperdal 4 mg q.h.s. Restarted Buspirone 10 mg b.i.d. Metronidazole 500 mg b.i.d. 7 days Patient educated on: diagnosis, medication risk/benefits and substance abuse Informed Consent: understands Reason for continued inpatient stay Substantial Risk for: rapid decompensation Time Spent With Patient Time: Total time managing care of this patient today ____ minutes.
[2024-04-26] MEDS: Nicotine 21 MG PATCH.TD24 TRANSDERMA (15:55)
[2024-04-26] MEDS: Baclofen 10 MG TABLET PO ×2 (16:15→20:13)
[2024-04-26 20:00] VITALS: BP 107/58; PULSE 73; RESP 18; TEMP 36.8; O2SAT 100
[2024-04-26] MEDS: OLANZapine 5 MG TABLET PO (20:13)
[2024-04-26] MEDS: traZODone HCL 50 MG TABLET PO (20:13)
[2024-04-26] MEDS: risperiDONE 2 MG TABLET 4 MG PO (20:13)
[2024-04-26] MEDS: Divalproex Sodium ER 500 MG TAB.ER.24H 1000 MG PO (20:13)
[2024-04-27 08:00] VITALS: BP 110/72; PULSE 55; RESP 16; TEMP 36.5; O2SAT 99
--- NOTE | 2024-04-27 09:41 | P.PNPSI_ITS ---
Subjective Subjective Date of Service: 05/13/24 Reason For Visit: Psychosis/ SI Interim History: met with patient; discussed with team pt says she's good. Asks again to talk w/ SW wanting to get into a program for substance abuse. Denies SI or AVH and tolerating medications well. Mental Status Exam Mental Status Exam Narrative: Pt is alert and oriented; behavior is cooperative, calm; patient is not in distress; dressed in hospital attire with cap on her head, disheveled; mood is described as good though affect constricted, little irritable; eye contact appropriate; Speech is normal volume, rate, prosody; some psychomotor retardation present; thought process is organized and goal directed; Thought content is on getting stable, sober, treatment program; otherwise pertinent to relevant topics and without any delusional content, paranoid ideations or grandiosity; no SI; no HI. No AVH. Patients insight and judgment improving. Diagnostics Vital Signs (24Hr): Vital Signs - 24 hr 04/26/24 20:00 Temperature 98.2 F Pulse Rate 73 Respiratory Rate 18 Blood Pressure 107/58 L Pulse Oximetry 100 Oxygen Delivery Method Room Air BMI result Body Mass Index 22.7 Labs 04/24/24 10:22 04/24/24 10:22 Labs: Laboratory Results - last 48 hr 04/25/24 Unknown Chlam trachomat DNA PCR NOT DETECTED N.gonorrhoeae DNA (PCR) NOT DETECTED T. vaginalis (PCR) DETECTED A Bact Vaginosis (PCR) POSITIVE A C. krusei/glabrata (PCR) NOT DETECTED Dora group (PCR) NOT DETECTED Medications Medications Current Medications Acetaminophen (Acetaminophen 325 Mg Tablet) 650 mg PO Q6H PRN PRN Reason: Headache/Pain Mild Scale (1-3) Al Hydroxide/Mg Hydroxide (Magnesium Hydrox/Alum Hydrox 30 Ml Oral.Susp) 30 ml PO Q6H PRN PRN Reason: Heartburn/Nausea Baclofen (Baclofen 10 Mg Tablet) 10 mg PO BID [facility] Last Admin: 04/26/24 20:13 Dose: 10 mg Buspirone HCl (Buspirone Hcl 10 Mg Tablet) 10 mg PO BID [facility] Last Admin: 04/26/24 20:13 Dose: 10 mg Divalproex Sodium (Divalproex Sodium Er 500 Mg Tab.Er.24h) 1,000 mg PO BEDTIME [facility] Last Admin: 04/26/24 20:13 Dose: 1,000 mg Hydroxyzine HCl (Hydroxyzine Hcl 25 Mg Tablet) 25 mg PO Q6H PRN PRN Reason: Anxiety Lorazepam (Lorazepam 1 Mg Tablet) 1 mg PO Q2H PRN PRN Reason: CIWA 6-10 Lorazepam (Lorazepam 1 Mg Tablet) 2 mg PO Q2H PRN PRN Reason: CIWA 11 and above Magnesium Hydroxide (Milk Of Magnesia 30 Ml Oral.Susp) 30 ml PO DAILY PRN PRN Reason: Constipation Metronidazole (Metronidazole 500 Mg Tablet) 500 mg PO BID [facility] Last Admin: 04/26/24 20:12 Dose: 500 mg Nicotine (Nicotine 21 Mg Patch.Td24) 21 mg TRANSDERMA DAILY PRN PRN Reason: smoking cessation Last Admin: 04/26/24 15:55 Dose: 21 mg Nicotine Polacrilex (Nicotine Polacrilex 2 Mg Gum) 4 mg BUCCAL Q2H PRN PRN Reason: Nicotine Cravings Olanzapine (Olanzapine 5 Mg Tablet) 5 mg PO TID PRN PRN Reason: agitation Last Admin: 04/26/24 20:13 Dose: 5 mg Risperidone (Risperidone 2 Mg Tablet) 4 mg PO BEDTIME [facility] Last Admin: 04/26/24 20:13 Dose: 4 mg Risperidone (Risperidone 2 Mg Tablet) 2 mg PO DAILY [facility] Last Admin: 04/26/24 08:49 Dose: 2 mg Trazodone HCl (Trazodone Hcl 50 Mg Tablet) 50 mg PO BEDTIME MRX1 PRN PRN Reason: Insomnia Last Admin: 04/26/24 20:13 Dose: 50 mg Allergies Allergies Allergy/AdvReac Type Severity Reaction Status Date / Time quetiapine [From Seroquel] Allergy Hallucinati Verified 04/24/24 09:55 ons haloperidol [From Haldol] AdvReac Hallucinati Verified 04/24/24 09:55 ons Assessment & Plan Assessment & Plan (1) Schizoaffective disorder: Status: Chronic Code(s): F25.9 - Schizoaffective disorder, unspecified (2) Chronic post-traumatic stress disorder (PTSD): Status: Acute Code(s): F43.12 - Post-traumatic stress disorder, chronic (3) Cocaine use disorder: Status: Acute Code(s): F14.10 - Cocaine abuse, uncomplicated Plan Patient is a 43-year-old female with history of schizoaffective disorder, cocaine abuse, PTSD who presents for depression, psychotic symptoms, auditory hallucinations and SI thought to stab herself, in face of relapse with cocaine and being off medications. Patient reports that she was overall doing well, taking her medications until this past week when she relapsed with cocaine abuse. She said there was no trigger she just ended up doing so and for the past week has been bingeing on cocaine, not on her medications. Patient soon started developing auditory hallucinations, got depressed and became suicidal. She self presented to stay safe. Patient reports she wants to get back on her medications since they are helpful. She still has auditory hallucinations which are lingering around but are less intense and she is able to mostly ignore; still has suicidal thoughts but again less intense. Patient says she wants go program after discharge Formulation/clinical reasoning: Patient with similar presentation to past admissions; she has only been off her medications for a week. They were restarted in the ED and symptoms are starting to subside. -patient asked for STD check; positive for Trichomonas BV and started on metronidazole HOspital course: 04/26 better today, no SI and no AH. Medications well tolerated. She asks to get on Baclofen for cocaine cravings saying she's been on it before. 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 -not scoring ciwa; will dc 04/26 mood improving. Checked labs and Valproic level WNL; associated labs wNL -continue current tx plan; pursue CSS Plan: CV Q 15 minute checks continue Baclofen 10mg bid for cocaine cravings continue Depakote ER 1000 q.h.s. continue Risperdal 2 mg daily, continue Risperdal 4 mg q.h.s. continue Buspirone 10 mg b.i.d. continue Metronidazole 500 mg b.i.d. 7 days Patient educated on: diagnosis, medication risk/benefits and therapeutic strategies Informed Consent: understands Reason for continued inpatient stay Substantial Risk for: rapid decompensation Time Spent With Patient Time: Total time managing care of this patient today ____ minutes.
[2024-04-27] MEDS: risperiDONE 2 MG TABLET PO (10:08)
[2024-04-27] MEDS: busPIRone HCl 10 MG TABLET PO ×2 (10:08→21:51)
[2024-04-27] MEDS: metroNIDAZOLE 500 MG TABLET PO ×2 (10:08→21:51)
[2024-04-27] MEDS: Baclofen 10 MG TABLET PO ×2 (10:09→21:51)
[2024-04-27 10:55] LABS: Ammonia 48 umol/L (13-55)
[2024-04-27 11:03] LABS: Alanine Aminotransferase 7 U/L (0-31); Albumin Level 3.7 g/dL (3.5-5.0); Alkaline Phosphatase 47 U/L (39-117); Aspartate Amino Transferase 11 U/L (5-31); Bilirubin Direct < 0.2 mg/dL (0.0-0.5); Bilirubin Total 0.2 mg/dL (0.0-1.0); Total Protein 6.8 g/dL (6.5-8.0)
[2024-04-27 11:18] LABS: Valproate 76.4 mcg/mL (50.0-100.0)
--- NOTE | 2024-04-27 14:19 | MHC.RECOVRN ---
AUDIT-C Brief Intervention Pt had positive screen for unhealthy alcohol use on admission. Attempted to meet with pt to discuss alcohol use, pt declined. Pt did accept resources.
[2024-04-27 20:00] VITALS: BP 111/53; PULSE 73; RESP 16; TEMP 36.7; O2SAT 97
[2024-04-27] MEDS: traZODone HCL 50 MG TABLET PO (21:51)
[2024-04-27] MEDS: Divalproex Sodium ER 500 MG TAB.ER.24H 1000 MG PO (21:51)
[2024-04-27] MEDS: OLANZapine 5 MG TABLET PO (21:51)
[2024-04-27] MEDS: risperiDONE 2 MG TABLET 4 MG PO (21:51)
[2024-04-28 08:00] VITALS: BP 151/88; PULSE 61; TEMP 36.7; O2SAT 100
[2024-04-28] MEDS: risperiDONE 2 MG TABLET PO (08:36)
[2024-04-28] MEDS: busPIRone HCl 10 MG TABLET PO ×2 (08:36→20:10)
[2024-04-28] MEDS: Baclofen 10 MG TABLET PO ×2 (08:36→20:10)
[2024-04-28] MEDS: metroNIDAZOLE 500 MG TABLET PO ×2 (08:36→20:10)
[2024-04-28] MEDS: OLANZapine 5 MG TABLET PO ×2 (08:36→20:11)
--- NOTE | 2024-04-28 09:34 | HO.PSYCHPN ---
Subjective Subjective Date of Service: 04/28/24 Reason For Visit: Psychosis/ SI Interim History: met with patient; discussed with team pt remains irritable; she says she has not been ready to go to groups yet. Denies AVH; denies SI. Pt not sure that she wanted to go to [facility] since the food there gives me gas... however, pt was able to talk this through and realized this need not be a barrier and open to [facility]. Mental Status Exam Mental Status Exam Narrative: Pt is alert and oriented; behavior is cooperative, calm; patient is not in distress; dressed in hospital attire with cap on her head, disheveled; mood is described as good though affect constricted, little irritable; eye contact appropriate; Speech is normal volume, rate, prosody; some psychomotor retardation present; thought process is organized and goal directed; Thought content concrete; getting into a program; otherwise pertinent to relevant topics and without any delusional content, paranoid ideations or grandiosity; no SI; no HI. No AVH. Patients insight and judgment improving. Diagnostics Vital Signs (24Hr): Vital Signs - 24 hr 04/27/24 20:00 04/28/24 08:00 Temperature 98.0 F 98.0 F Pulse Rate 73 61 Respiratory Rate 16 Blood Pressure 111/53 L 151/88 H Pulse Oximetry 97 100 Oxygen Delivery Method Room Air Room Air BMI result Body Mass Index 22.7 Labs 04/24/24 10:22 04/24/24 10:22 Labs: Laboratory Results - last 48 hr 04/27/24 10:36 Total Bilirubin 0.2 Direct Bilirubin < 0.2 AST 11 ALT 7 Alkaline Phosphatase 47 Ammonia 48 Total Protein 6.8 Albumin 3.7 Valproic Acid 76.4 Medications Medications Current Medications Acetaminophen (Acetaminophen 325 Mg Tablet) 650 mg PO Q6H PRN PRN Reason: Headache/Pain Mild Scale (1-3) Al Hydroxide/Mg Hydroxide (Magnesium Hydrox/Alum Hydrox 30 Ml Oral.Susp) 30 ml PO Q6H PRN PRN Reason: Heartburn/Nausea Baclofen (Baclofen 10 Mg Tablet) 10 mg PO BID REPLACED BY [facility] Last Admin: 04/28/24 08:36 Dose: 10 mg Buspirone HCl (Buspirone Hcl 10 Mg Tablet) 10 mg PO BID [facility]PLACED BY [facility] Last Admin: 04/28/24 08:36 Dose: 10 mg Divalproex Sodium (Divalproex Sodium Er 500 Mg Tab.Er.24h) 1,000 mg PO BEDTIME REPLACED BY [facility] Last Admin: 04/27/24 21:51 Dose: 1,000 mg Hydroxyzine HCl (Hydroxyzine Hcl 25 Mg Tablet) 25 mg PO Q6H PRN PRN Reason: Anxiety Lorazepam (Lorazepam 1 Mg Tablet) 1 mg PO Q2H PRN PRN Reason: CIWA 6-10 Lorazepam (Lorazepam 1 Mg Tablet) 2 mg PO Q2H PRN PRN Reason: CIWA 11 and above Magnesium Hydroxide (Milk Of Magnesia 30 Ml Oral.Susp) 30 ml PO DAILY PRN PRN Reason: Constipation Metronidazole (Metronidazole 500 Mg Tablet) 500 mg PO BID [facility] Last Admin: 04/28/24 08:36 Dose: 500 mg Nicotine (Nicotine 21 Mg Patch.Td24) 21 mg TRANSDERMA DAILY PRN PRN Reason: smoking cessation Last Admin: 04/26/24 15:55 Dose: 21 mg Nicotine Polacrilex (Nicotine Polacrilex 2 Mg Gum) 4 mg BUCCAL Q2H PRN PRN Reason: Nicotine Cravings Olanzapine (Olanzapine 5 Mg Tablet) 5 mg PO TID PRN PRN Reason: agitation Last Admin: 04/28/24 08:36 Dose: 5 mg Risperidone (Risperidone 2 Mg Tablet) 4 mg PO BEDTIME REPLACED [facility] Last Admin: 04/27/24 21:51 Dose: 4 mg Risperidone (Risperidone 2 Mg Tablet) 2 mg PO DAILY [facility]PLACED [facility] Last Admin: 04/28/24 08:36 Dose: 2 mg Trazodone HCl (Trazodone Hcl 50 Mg Tablet) 50 mg PO BEDTIME MRX1 PRN PRN Reason: Insomnia Last Admin: 04/27/24 21:51 Dose: 50 mg Allergies Allergies Allergy/AdvReac Type Severity Reaction Status Date / Time quetiapine [From Seroquel] Allergy Hallucinati Verified 04/24/24 09:55 ons haloperidol [From Haldol] AdvReac Hallucinati Verified 04/24/24 09:55 ons Assessment & Plan Assessment & Plan (1) Schizoaffective disorder: Status: Chronic Code(s): F25.9 - Schizoaffective disorder, unspecified (2) Chronic post-traumatic stress disorder (PTSD): Status: Acute Code(s): F43.12 - Post-traumatic stress disorder, chronic (3) Cocaine use disorder: Status: Acute Code(s): F14.10 - Cocaine abuse, uncomplicated Plan Patient is a 43-year-old female with history of schizoaffective disorder, cocaine abuse, PTSD who presents for depression, psychotic symptoms, auditory hallucinations and SI thought to stab herself, in face of relapse with cocaine and being off medications. Patient reports that she was overall doing well, taking her medications until this past week when she relapsed with cocaine abuse. She said there was no trigger she just ended up doing so and for the past week has been bingeing on cocaine, not on her medications. Patient soon started developing auditory hallucinations, got depressed and became suicidal. She self presented to stay safe. Patient reports she wants to get back on her medications since they are helpful. She still has auditory hallucinations which are lingering around but are less intense and she is able to mostly ignore; still has suicidal thoughts but again less intense. Patient says she wants go program after discharge Formulation/clinical reasoning: Patient with similar presentation to past admissions; she has only been off her medications for a week. They were restarted in the ED and symptoms are starting to subside. -patient asked for STD check; positive for Trichomonas BV and started on metronidazole HOspital course: 04/26 better today, no SI and no AH. Medications well tolerated. She asks to get on Baclofen for cocaine cravings saying she's been on it before. 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 -not scoring ciwa; will dc 04/27 mood improving. Checked labs and Valproic level WNL; associated labs wNL -continue current tx plan; pursue CSS 04/28 irritable; senior writer understands she is still getting stable on her medications. -continue current tx plan Plan: CV Q 15 minute checks continue Baclofen 10mg bid for cocaine cravings continue Depakote ER 1000 q.h.s. continue Risperdal 2 mg daily, continue Risperdal 4 mg q.h.s. continue Buspirone 10 mg b.i.d. continue Metronidazole 500 mg b.i.d. 7 days Patient educated on: diagnosis, substance abuse and therapeutic strategies Informed Consent: understands Reason for continued inpatient stay Substantial Risk for: rapid decompensation Time Spent With Patient Time: Total time managing care of this patient today ____ minutes.
[2024-04-28 20:00] VITALS: BP 94/58; PULSE 69; RESP 16; TEMP 37.1; O2SAT 96
[2024-04-28] MEDS: Divalproex Sodium ER 500 MG TAB.ER.24H 1000 MG PO (20:10)
[2024-04-28] MEDS: risperiDONE 2 MG TABLET 4 MG PO (20:11)
[2024-04-29 08:00] VITALS: BP 152/77; PULSE 60; TEMP 36.5; O2SAT 98
[2024-04-29] MEDS: busPIRone HCl 10 MG TABLET PO ×2 (09:42→20:21)
[2024-04-29] MEDS: Baclofen 10 MG TABLET PO ×2 (09:42→20:21)
[2024-04-29] MEDS: metroNIDAZOLE 500 MG TABLET PO ×2 (09:42→20:20)
[2024-04-29] MEDS: risperiDONE 2 MG TABLET PO (09:42)
--- NOTE | 2024-04-29 14:08 | HO.PSYCHPN ---
Subjective Subjective Date of Service: 04/29/24 Reason For Visit: Psychosis/ SI Interim History: Met with patient; discussed with team Patient reports some intermittent continued AH of muffled voices/noises. She agrees that AH usually is resolved by now but this time it isn't. She remains eager to get into a program and mentioned she had contact with [facility] which may have an opening in a week or 2. Discussed with patient about going to groups she said she is not sure why she has not but will start. Mental Status Exam Mental Status Exam Narrative: Pt is alert and oriented; behavior is cooperative, calm; patient is not in distress; dressed in hospital attire with cap on her head, disheveled; mood is described as good though affect constricted, little irritable; eye contact appropriate; Speech is normal volume, rate, prosody; some psychomotor retardation present; thought process is organized and goal directed; Thought content concrete; getting into a program; otherwise pertinent to relevant topics and without any delusional content, paranoid ideations or grandiosity; no SI; no HI. No AVH. Patients insight and judgment improving. Diagnostics Vital Signs (24Hr): Vital Signs - 24 hr 04/28/24 20:00 04/29/24 08:00 Temperature 98.7 F 97.7 F Pulse Rate 69 60 Respiratory Rate 16 Blood Pressure 94/58 L 152/77 H Pulse Oximetry 96 98 Oxygen Delivery Method Room Air BMI result Body Mass Index 22.7 Labs 04/24/24 10:22 04/24/24 10:22 Medications Medications Current Medications Acetaminophen (Acetaminophen 325 Mg Tablet) 650 mg PO Q6H PRN PRN Reason: Headache/Pain Mild Scale (1-3) Al Hydroxide/Mg Hydroxide (Magnesium Hydrox/Alum Hydrox 30 Ml Oral.Susp) 30 ml PO Q6H PRN PRN Reason: Heartburn/Nausea Baclofen (Baclofen 10 Mg Tablet) 10 mg PO BID [facility] Last Admin: 04/29/24 09:42 Dose: 10 mg Buspirone HCl (Buspirone Hcl 10 Mg Tablet) 10 mg PO BID [facility] Last Admin: 04/29/24 09:42 Dose: 10 mg Divalproex Sodium (Divalproex Sodium Er 500 Mg Tab.Er.24h) 1,000 mg PO BEDTIME [facility] Last Admin: 04/28/24 20:10 Dose: 1,000 mg Hydroxyzine HCl (Hydroxyzine Hcl 25 Mg Tablet) 25 mg PO Q6H PRN PRN Reason: Anxiety Lorazepam (Lorazepam 1 Mg Tablet) 1 mg PO Q2H PRN PRN Reason: CIWA 6-10 Lorazepam (Lorazepam 1 Mg Tablet) 2 mg PO Q2H PRN PRN Reason: CIWA 11 and above Magnesium Hydroxide (Milk Of Magnesia 30 Ml Oral.Susp) 30 ml PO DAILY PRN PRN Reason: Constipation Metronidazole (Metronidazole 500 Mg Tablet) 500 mg PO BID [facility] Last Admin: 04/29/24 09:42 Dose: 500 mg Nicotine (Nicotine 21 Mg Patch.Td24) 21 mg TRANSDERMA DAILY PRN PRN Reason: smoking cessation Last Admin: 04/26/24 15:55 Dose: 21 mg Nicotine Polacrilex (Nicotine Polacrilex 2 Mg Gum) 4 mg BUCCAL Q2H PRN PRN Reason: Nicotine Cravings Olanzapine (Olanzapine 5 Mg Tablet) 5 mg PO TID PRN PRN Reason: agitation Last Admin: 04/28/24 20:11 Dose: 5 mg Risperidone (Risperidone 2 Mg Tablet) 4 mg PO BEDTIME [facility] Last Admin: 04/28/24 20:11 Dose: 4 mg Risperidone (Risperidone 2 Mg Tablet) 2 mg PO DAILY [facility] Last Admin: 04/29/24 09:42 Dose: 2 mg Trazodone HCl (Trazodone Hcl 50 Mg Tablet) 50 mg PO BEDTIME MRX1 PRN PRN Reason: Insomnia Last Admin: 04/27/24 21:51 Dose: 50 mg Allergies Allergies Allergy/AdvReac Type Severity Reaction Status Date / Time quetiapine [From Seroquel] Allergy Hallucinati Verified 04/24/24 09:55 ons haloperidol [From Haldol] AdvReac Hallucinati Verified 04/24/24 09:55 ons Assessment & Plan Assessment & Plan (1) Schizoaffective disorder: Status: Chronic Code(s): F25.9 - Schizoaffective disorder, unspecified (2) Chronic post-traumatic stress disorder (PTSD): Status: Acute Code(s): F43.12 - Post-traumatic stress disorder, chronic (3) Cocaine use disorder: Status: Acute Code(s): F14.10 - Cocaine abuse, uncomplicated Plan Patient is a 43-year-old female with history of schizoaffective disorder, cocaine abuse, PTSD who presents for depression, psychotic symptoms, auditory hallucinations and SI thought to stab herself, in face of relapse with cocaine and being off medications. Patient reports that she was overall doing well, taking her medications until this past week when she relapsed with cocaine abuse. She said there was no trigger she just ended up doing so and for the past week has been bingeing on cocaine, not on her medications. Patient soon started developing auditory hallucinations, got depressed and became suicidal. She self presented to stay safe. Patient reports she wants to get back on her medications since they are helpful. She still has auditory hallucinations which are lingering around but are less intense and she is able to mostly ignore; still has suicidal thoughts but again less intense. Patient says she wants go program after discharge Formulation/clinical reasoning: Patient with similar presentation to past admissions; she has only been off her medications for a week. They were restarted in the ED and symptoms are starting to subside. -patient asked for STD check; positive for Trichomonas BV and started on metronidazole HOspital course: 04/26 better today, no SI and no AH. Medications well tolerated. She asks to get on Baclofen for cocaine cravings saying she's been on it before. animal care specialist reviewed risks/side-effects including potential for withdrawal which she understands but feels it helps and wants to proceed. -not scoring ciwa; will dc 04/27 mood improving. Checked labs and Valproic level WNL; associated labs wNL -continue current tx plan; pursue CSS 04/28 irritable; ad copy writer understands she is still getting stable on her medications. -continue current tx plan 04/29 similar presentation; AH lingering; continue current treatment plan with medications with expectation that AH will fully resolve Plan: CV Q 15 minute checks continue Baclofen 10mg bid for cocaine cravings continue Depakote ER 1000 q.h.s. continue Risperdal 2 mg daily, continue Risperdal 4 mg q.h.s. continue Buspirone 10 mg b.i.d. continue Metronidazole 500 mg b.i.d. 7 days Patient educated on: diagnosis, medication risk/benefits and therapeutic strategies Informed Consent: understands Reason for continued inpatient stay Substantial Risk for: rapid decompensation Time Spent With Patient Time: Total time managing care of this patient today ____ minutes.
[2024-04-29] MEDS: OLANZapine 5 MG TABLET PO ×2 (17:52→20:21)
[2024-04-29] MEDS: risperiDONE 2 MG TABLET 4 MG PO (20:20)
[2024-04-29] MEDS: Divalproex Sodium ER 500 MG TAB.ER.24H 1000 MG PO (20:20)
[2024-04-30 09:16] VITALS: BP 113/66; PULSE 69; RESP 18; TEMP 36.4; O2SAT 98
[2024-04-30] MEDS: risperiDONE 2 MG TABLET PO (09:26)
[2024-04-30] MEDS: busPIRone HCl 10 MG TABLET PO ×2 (09:26→21:37)
[2024-04-30] MEDS: Baclofen 10 MG TABLET PO ×2 (09:26→21:37)
[2024-04-30] MEDS: metroNIDAZOLE 500 MG TABLET PO ×2 (09:26→21:38)
--- NOTE | 2024-04-30 09:35 | P.PNPSI_ITS ---
Subjective Subjective Date of Service: 04/30/24 Reason For Visit: Psychosis/ SI Interim History: Met with patient; discussed with team Patient more out and about today, more engaged and interactive. Attended groups. Stabilizing well and hoping for a program Mental Status Exam Mental Status Exam Narrative: Pt is alert and oriented; behavior is cooperative, calm, more engaged; patient is not in distress; dressed in hospital attire with cap on her head, adequate hygiene; mood is described as good and affect congruent, brighter, calm; eye contact appropriate; Speech is normal volume, rate, prosody; no psychomotor retardation present; thought process is organized and goal directed; Thought content concrete but goal oriented and organized; focused on getting into a program; otherwise pertinent to relevant topics and without any delusional content, paranoid ideations or grandiosity; no SI; no HI. No AVH. Patients insight and judgment fair. Diagnostics Vital Signs (24Hr): Vital Signs - 24 hr 04/30/24 09:16 Temperature 97.5 F Pulse Rate 69 Respiratory Rate 18 Blood Pressure 113/66 Pulse Oximetry 98 Oxygen Delivery Method Room Air BMI result Body Mass Index 22.7 Labs 04/24/24 10:22 04/24/24 10:22 Medications Medications Current Medications Acetaminophen (Acetaminophen 325 Mg Tablet) 650 mg PO Q6H PRN PRN Reason: Headache/Pain Mild Scale (1-3) Al Hydroxide/Mg Hydroxide (Magnesium Hydrox/Alum Hydrox 30 Ml Oral.Susp) 30 ml PO Q6H PRN PRN Reason: Heartburn/Nausea Baclofen (Baclofen 10 Mg Tablet) 10 mg PO BID [facility] Last Admin: 04/30/24 09:26 Dose: 10 mg Buspirone HCl (Buspirone Hcl 10 Mg Tablet) 10 mg PO BID [facility] Last Admin: 04/30/24 09:26 Dose: 10 mg Divalproex Sodium (Divalproex Sodium Er 500 Mg Tab.Er.24h) 1,000 mg PO BEDTIME [facility] Last Admin: 04/29/24 20:20 Dose: 1,000 mg Hydroxyzine HCl (Hydroxyzine Hcl 25 Mg Tablet) 25 mg PO Q6H PRN PRN Reason: Anxiety Lorazepam (Lorazepam 1 Mg Tablet) 1 mg PO Q2H PRN PRN Reason: CIWA 6-10 Lorazepam (Lorazepam 1 Mg Tablet) 2 mg PO Q2H PRN PRN Reason: CIWA 11 and above Magnesium Hydroxide (Milk Of Magnesia 30 Ml Oral.Susp) 30 ml PO DAILY PRN PRN Reason: Constipation Metronidazole (Metronidazole 500 Mg Tablet) 500 mg PO BID [facility] Last Admin: 04/30/24 09:26 Dose: 500 mg Nicotine (Nicotine 21 Mg Patch.Td24) 21 mg TRANSDERMA DAILY PRN PRN Reason: smoking cessation Last Admin: 04/26/24 15:55 Dose: 21 mg Nicotine Polacrilex (Nicotine Polacrilex 2 Mg Gum) 4 mg BUCCAL Q2H PRN PRN Reason: Nicotine Cravings Olanzapine (Olanzapine 5 Mg Tablet) 5 mg PO TID PRN PRN Reason: agitation Last Admin: 04/29/24 20:21 Dose: 5 mg Risperidone (Risperidone 2 Mg Tablet) 4 mg PO BEDTIME [facility] Last Admin: 04/29/24 20:20 Dose: 4 mg Risperidone (Risperidone 2 Mg Tablet) 2 mg PO DAILY [facility] Last Admin: 04/30/24 09:26 Dose: 2 mg Trazodone HCl (Trazodone Hcl 50 Mg Tablet) 50 mg PO BEDTIME MRX1 PRN PRN Reason: Insomnia Last Admin: 04/27/24 21:51 Dose: 50 mg Allergies Allergies Allergy/AdvReac Type Severity Reaction Status Date / Time quetiapine [From Seroquel] Allergy Hallucinati Verified 04/24/24 09:55 ons haloperidol [From Haldol] AdvReac Hallucinati Verified 04/24/24 09:55 ons Assessment & Plan Assessment & Plan (1) Schizoaffective disorder: Status: Chronic Code(s): F25.9 - Schizoaffective disorder, unspecified (2) Chronic post-traumatic stress disorder (PTSD): Status: Acute Code(s): F43.12 - Post-traumatic stress disorder, chronic (3) Cocaine use disorder: Status: Acute Code(s): F14.10 - Cocaine abuse, uncomplicated Plan Patient is a 43-year-old female with history of schizoaffective disorder, cocaine abuse, PTSD who presents for depression, psychotic symptoms, auditory hallucinations and SI thought to stab herself, in face of relapse with cocaine and being off medications. Patient reports that she was overall doing well, taking her medications until this past week when she relapsed with cocaine abuse. She said there was no trigger she just ended up doing so and for the past week has been bingeing on cocaine, not on her medications. Patient soon started developing auditory hallucinations, got depressed and became suicidal. She self presented to stay safe. Patient reports she wants to get back on her medications since they are helpful. She still has auditory hallucinations which are lingering around but are less intense and she is able to mostly ignore; still has suicidal thoughts but again less intense. Patient says she wants go program after discharge Formulation/clinical reasoning: Patient with similar presentation to past admissions; she has only been off her medications for a week. They were restarted in the ED and symptoms are starting to subside. -patient asked for STD check; positive for Trichomonas BV and started on metronidazole HOspital course: 04/26 better today, no SI and no AH. Medications well tolerated. She asks to get on Baclofen for cocaine cravings saying she's been on it before. game advisor reviewed risks/side-effects including potential for withdrawal which she understands but feels it helps and wants to proceed. -not scoring ciwa; will dc 04/27 mood improving. Checked labs and Valproic level WNL; associated labs wNL -continue current tx plan; pursue CSS 04/28 irritable; screenplay writer understands she is still getting stable on her medications. -continue current tx plan 04/29 similar presentation; AH lingering; continue current treatment plan with medications with expectation that AH will fully resolve 04/30 Patient more out and about today, more engaged and interactive. Attended groups. Calm, polite. Patient remains in good behavioral and impulse control and appropriate with peers and staff. She is stabilizing well and hoping for a program Patient stable on current medication regimen Plan: CV Q 15 minute checks continue Baclofen 10mg bid for cocaine cravings continue Depakote ER 1000 q.h.s. continue Risperdal 2 mg daily, continue Risperdal 4 mg q.h.s. continue Buspirone 10 mg b.i.d. continue Metronidazole 500 mg b.i.d. 7 days Patient educated on: diagnosis, medication risk/benefits and therapeutic strategies Informed Consent: understands Reason for continued inpatient stay Substantial Risk for: stable for discharge Time Spent With Patient Time: Total time managing care of this patient today ____ minutes.
[2024-04-30 20:00] VITALS: BP 116/63; PULSE 68; RESP 18; TEMP 36.3; O2SAT 97
[2024-04-30] MEDS: Divalproex Sodium ER 500 MG TAB.ER.24H 1000 MG PO (21:37)
[2024-04-30] MEDS: traZODone HCL 50 MG TABLET PO (21:37)
[2024-04-30] MEDS: OLANZapine 5 MG TABLET PO (21:37)
[2024-04-30] MEDS: risperiDONE 2 MG TABLET 4 MG PO (21:38)
[2024-05-01 08:00] VITALS: BP 108/60; PULSE 62; RESP 16; TEMP 36.4; O2SAT 98
[2024-05-01] MEDS: risperiDONE 2 MG TABLET PO (08:32)
[2024-05-01] MEDS: busPIRone HCl 10 MG TABLET PO ×2 (08:33→20:17)
[2024-05-01] MEDS: Baclofen 10 MG TABLET PO ×2 (08:33→20:17)
[2024-05-01] MEDS: metroNIDAZOLE 500 MG TABLET PO ×2 (08:33→20:17)
--- NOTE | 2024-05-01 16:31 | HO.PSYCHPN ---
Subjective Subjective Date of Service: 05/01/24 Reason For Visit: Psychosis/ SI Interim History: Quiet, isolative, irritable at times. Discussed with pt her rationale for asking for a program this admission. She reports, it is my drug use, if I don't do something different I will , and I want to live. I need to get to a program and work with it, and I will. Pt working on activity worksheets in the milieu today reflective of group content, skills training . Medication Compliance: Yes Side effects from medications: No Attending Groups: Intermittent Review of Systems Acute medical concerns: No Medical Review of Systems: unchanged Review of Systems Review of Systems Denies Mental Status Exam Mental Status Exam Patient Appearance: Fatigued Patient Orientation: Person, Place, Time and Situation Level of Consciousness: Alert Patient Behavior: Distractible and Good Eye Contact Mood Description: Labile Affect Description: Labile Patient Cognition Impaired: No Ability to Follow Directions: Good Speech Pattern: Spontaneous Speech Memory Description: Intact Hallucinations: None Delusions: Not Present Thought Process: Rumination Thought Content: positive for Circumstantial Depressive Symptoms: Increased Anxiety and Low Self Esteem Judgement: Fair Diagnostics Vital Signs (24Hr): Vital Signs - 24 hr 04/30/24 20:00 05/01/24 08:00 Temperature 97.4 F 97.6 F Pulse Rate 68 62 Respiratory Rate 18 16 Blood Pressure 116/63 108/60 Pulse Oximetry 97 98 Oxygen Delivery Method Room Air Room Air BMI result Body Mass Index 22.7 Labs 04/24/24 10:22 04/24/24 10:22 Medications Medications Current Medications Acetaminophen (Acetaminophen 325 Mg Tablet) 650 mg PO Q6H PRN PRN Reason: Headache/Pain Mild Scale (1-3) Al Hydroxide/Mg Hydroxide (Magnesium Hydrox/Alum Hydrox 30 Ml Oral.Susp) 30 ml PO Q6H PRN PRN Reason: Heartburn/Nausea Baclofen (Baclofen 10 Mg Tablet) 10 mg PO BID [facility] Last Admin: 05/01/24 08:33 Dose: 10 mg Buspirone HCl (Buspirone Hcl 10 Mg Tablet) 10 mg PO BID [facility] Last Admin: 05/01/24 08:33 Dose: 10 mg Divalproex Sodium (Divalproex Sodium Er 500 Mg Tab.Er.24h) 1,000 mg PO BEDTIME [facility] Last Admin: 04/30/24 21:37 Dose: 1,000 mg Hydroxyzine HCl (Hydroxyzine Hcl 25 Mg Tablet) 25 mg PO Q6H PRN PRN Reason: Anxiety Lorazepam (Lorazepam 1 Mg Tablet) 1 mg PO Q2H PRN PRN Reason: CIWA 6-10 Lorazepam (Lorazepam 1 Mg Tablet) 2 mg PO Q2H PRN PRN Reason: CIWA 11 and above Magnesium Hydroxide (Milk Of Magnesia 30 Ml Oral.Susp) 30 ml PO DAILY PRN PRN Reason: Constipation Metronidazole (Metronidazole 500 Mg Tablet) 500 mg PO BID [facility] Last Admin: 05/01/24 08:33 Dose: 500 mg Nicotine (Nicotine 21 Mg Patch.Td24) 21 mg TRANSDERMA DAILY PRN PRN Reason: smoking cessation Last Admin: 04/26/24 15:55 Dose: 21 mg Nicotine Polacrilex (Nicotine Polacrilex 2 Mg Gum) 4 mg BUCCAL Q2H PRN PRN Reason: Nicotine Cravings Olanzapine (Olanzapine 5 Mg Tablet) 5 mg PO TID PRN PRN Reason: agitation Last Admin: 04/30/24 21:37 Dose: 5 mg Risperidone (Risperidone 2 Mg Tablet) 4 mg PO BEDTIME [facility] Last Admin: 04/30/24 21:38 Dose: 4 mg Risperidone (Risperidone 2 Mg Tablet) 2 mg PO DAILY [facility] Last Admin: 05/01/24 08:32 Dose: 2 mg Trazodone HCl (Trazodone Hcl 50 Mg Tablet) 50 mg PO BEDTIME MRX1 PRN PRN Reason: Insomnia Last Admin: 04/30/24 21:37 Dose: 50 mg Allergies Allergies Allergy/AdvReac Type Severity Reaction Status Date / Time quetiapine [From Seroquel] Allergy Hallucinati Verified 04/24/24 09:55 ons haloperidol [From Haldol] AdvReac Hallucinati Verified 04/24/24 09:55 ons Assessment & Plan Assessment & Plan (1) Schizoaffective disorder: Status: Chronic Code(s): F25.9 - Schizoaffective disorder, unspecified (2) Chronic post-traumatic stress disorder (PTSD): Status: Acute Code(s): F43.12 - Post-traumatic stress disorder, chronic (3) Cocaine use disorder: Status: Acute Code(s): F14.10 - Cocaine abuse, uncomplicated Plan Patient is a 43-year-old female with history of schizoaffective disorder, cocaine abuse, PTSD who presents for depression, psychotic symptoms, auditory hallucinations and SI thought to stab herself, in face of relapse with cocaine and being off medications. Patient reports that she was overall doing well, taking her medications until this past week when she relapsed with cocaine abuse. She said there was no trigger she just ended up doing so and for the past week has been bingeing on cocaine, not on her medications. Patient soon started developing auditory hallucinations, got depressed and became suicidal. She self presented to stay safe. Patient reports she wants to get back on her medications since they are helpful. She still has auditory hallucinations which are lingering around but are less intense and she is able to mostly ignore; still has suicidal thoughts but again less intense. Patient says she wants go program after discharge Formulation/clinical reasoning: Patient with similar presentation to past admissions; she has only been off her medications for a week. They were restarted in the ED and symptoms are starting to subside. -patient asked for STD check; positive for Trichomonas BV and started on metronidazole HOspital course: 04/26 better today, no SI and no AH. Medications well tolerated. She asks to get on Baclofen for cocaine cravings saying she's been on it before. hat and cap parts cutter hand reviewed risks/side-effects including potential for withdrawal which she understands but feels it helps and wants to proceed. -not scoring ciwa; will dc 04/27 mood improving. Checked labs and Valproic level WNL; associated labs wNL -continue current tx plan; pursue CSS 04/28 irritable; typewriter ribbon winder understands she is still getting stable on her medications. -continue current tx plan 04/29 similar presentation; AH lingering; continue current treatment plan with medications with expectation that AH will fully resolve 04/30 Patient more out and about today, more engaged and interactive. Attended groups. Calm, polite. Patient remains in good behavioral and impulse control and appropriate with peers and staff. She is stabilizing well and hoping for a program 05/01 Continue treatment. Today working on group content, skills training. Patient stable on current medication regimen Plan: CV Q 15 minute checks continue Baclofen 10mg bid for cocaine cravings continue Depakote ER 1000 q.h.s. continue Risperdal 2 mg daily, continue Risperdal 4 mg q.h.s. continue Buspirone 10 mg b.i.d. continue Metronidazole 500 mg b.i.d. 7 days Reason for continued inpatient stay Substantial Risk for: rapid decompensation Time Spent With Patient Time: Total time managing care of this patient today ____ minutes.
[2024-05-01] MEDS: Nicotine 21 MG PATCH.TD24 TRANSDERMA (17:29)
[2024-05-01 20:00] VITALS: BP 106/60; PULSE 79; RESP 18; TEMP 37.4; O2SAT 98
[2024-05-01] MEDS: traZODone HCL 50 MG TABLET PO (20:17)
[2024-05-01] MEDS: Divalproex Sodium ER 500 MG TAB.ER.24H 1000 MG PO (20:17)
[2024-05-01] MEDS: OLANZapine 5 MG TABLET PO (20:17)
[2024-05-01] MEDS: risperiDONE 2 MG TABLET 4 MG PO (20:18)
[2024-05-02 08:15] VITALS: BP 121/62; PULSE 70; RESP 16; TEMP 36.8; O2SAT 97
[2024-05-02] MEDS: risperiDONE 2 MG TABLET PO (09:11)
[2024-05-02] MEDS: busPIRone HCl 10 MG TABLET PO ×2 (09:12→21:49)
[2024-05-02] MEDS: metroNIDAZOLE 500 MG TABLET PO ×2 (09:12→21:49)
[2024-05-02] MEDS: Baclofen 10 MG TABLET PO ×2 (09:12→21:49)
[2024-05-02] MEDS: Nicotine 21 MG PATCH.TD24 TRANSDERMA (09:15)
--- NOTE | 2024-05-02 18:25 | HO.PSYCHPN ---
Subjective Subjective Date of Service: 05/02/24 Reason For Visit: Psychosis/ SI Interim History: Quiet, isolative, irritable at times. Discussed with pt her rationale for asking for a program this admission. pt reports depression and fear she will from her drug use; wants treatment Interested in CSS after discharge Medication Compliance: Yes Side effects from medications: No Attending Groups: No Review of Systems Medical Review of Systems: unchanged Review of Systems Review of Systems Denies Constitutional: Reports no additional constitutional complaints, Denies chills, Denies fever(s) and Denies night sweats Eyes: Reports no additional eye complaints, Denies blurry vision, Denies change in vision, Denies diplopia, Denies eye discharge, Denies loss of vision and Denies eye pain Denies dizziness Cardiovascular: Reports no additional cardiovascular complaints, Denies chest pain, Denies lightheadedness, Denies Loss of Consciousness and Denies dyspnea Respiratory: Reports no additional respiratory complaints and Denies dyspnea Gastrointestinal: Reports no additional gastrointestinal complaints, Denies abdominal pain, Denies melena, Denies hematochezia, Denies change in bowel habits and Denies change in stool character Musculoskeletal: Reports no additional musculoskeletal complaints, Denies numbness and Denies tingling Denies dizziness, Denies loss of vision, Denies numbness and Denies tingling Psychiatric: Reports auditory hallucinations, Denies homicidal ideation and Reports suicidal ideation Endocrine: Reports no additional endocrine complaints Hematologic/Lymphatic: Reports no additional hematologic/lymphatic complaints Allergic/Immunologic: Reports no additional allergic/immunologic complaints Mental Status Exam Mental Status Exam Narrative: Pt is alert and oriented; behavior is cooperative, calm, more engaged; patient is not in distress; dressed in hospital attire with cap on her head, adequate hygiene; mood is described as good and affect congruent, brighter, calm; eye contact appropriate; Speech is normal volume, rate, prosody; no psychomotor retardation present; thought process is organized and goal directed; Thought content concrete but goal oriented and organized; focused on getting into a program; otherwise pertinent to relevant topics and without any delusional content, paranoid ideations or grandiosity; no SI; no HI. No AVH. Patients insight and judgment fair. Patient Appearance: Fatigued Patient Orientation: Person, Place, Time and Situation Level of Consciousness: Alert Patient Behavior: Distractible and Good Eye Contact Mood Description: Labile Affect Description: Labile Patient Cognition Impaired: No Ability to Follow Directions: Good Speech Pattern: Spontaneous Speech Memory Description: Intact Diagnostics Vital Signs (24Hr): Vital Signs - 24 hr 05/01/24 20:00 05/02/24 08:15 Temperature 99.3 F 98.2 F Pulse Rate 79 70 Respiratory Rate 18 16 Blood Pressure 106/60 121/62 Pulse Oximetry 98 97 Oxygen Delivery Method Room Air Room Air BMI result Body Mass Index 22.7 Labs 04/24/24 10:22 04/24/24 10:22 Medications Medications Current Medications Acetaminophen (Acetaminophen 325 Mg Tablet) 650 mg PO Q6H PRN PRN Reason: Headache/Pain Mild Scale (1-3) Al Hydroxide/Mg Hydroxide (Magnesium Hydrox/Alum Hydrox 30 Ml Oral.Susp) 30 ml PO Q6H PRN PRN Reason: Heartburn/Nausea Baclofen (Baclofen 10 Mg Tablet) 10 mg PO BID [facility] Last Admin: 05/02/24 09:12 Dose: 10 mg Buspirone HCl (Buspirone Hcl 10 Mg Tablet) 10 mg PO BID [facility] Last Admin: 05/02/24 09:12 Dose: 10 mg Divalproex Sodium (Divalproex Sodium Er 500 Mg Tab.Er.24h) 1,000 mg PO BEDTIME [facility] Last Admin: 05/01/24 20:17 Dose: 1,000 mg Hydroxyzine HCl (Hydroxyzine Hcl 25 Mg Tablet) 25 mg PO Q6H PRN PRN Reason: Anxiety Lorazepam (Lorazepam 1 Mg Tablet) 1 mg PO Q2H PRN PRN Reason: CIWA 6-10 Lorazepam (Lorazepam 1 Mg Tablet) 2 mg PO Q2H PRN PRN Reason: CIWA 11 and above Magnesium Hydroxide (Milk Of Magnesia 30 Ml Oral.Susp) 30 ml PO DAILY PRN PRN Reason: Constipation Metronidazole (Metronidazole 500 Mg Tablet) 500 mg PO BID [facility] Last Admin: 05/02/24 09:12 Dose: 500 mg Nicotine (Nicotine 21 Mg Patch.Td24) 21 mg TRANSDERMA DAILY PRN PRN Reason: smoking cessation Last Admin: 05/02/24 09:15 Dose: 21 mg Nicotine Polacrilex (Nicotine Polacrilex 2 Mg Gum) 4 mg BUCCAL Q2H PRN PRN Reason: Nicotine Cravings Olanzapine (Olanzapine 5 Mg Tablet) 5 mg PO TID PRN PRN Reason: agitation Last Admin: 05/01/24 20:17 Dose: 5 mg Risperidone (Risperidone 2 Mg Tablet) 4 mg PO BEDTIME [facility] Last Admin: 05/01/24 20:18 Dose: 4 mg Risperidone (Risperidone 2 Mg Tablet) 2 mg PO DAILY [facility] Last Admin: 05/02/24 09:11 Dose: 2 mg Trazodone HCl (Trazodone Hcl 50 Mg Tablet) 50 mg PO BEDTIME MRX1 PRN PRN Reason: Insomnia Last Admin: 05/01/24 20:17 Dose: 50 mg Allergies Allergies Allergy/AdvReac Type Severity Reaction Status Date / Time quetiapine [From Seroquel] Allergy Hallucinati Verified 04/24/24 09:55 ons haloperidol [From Haldol] AdvReac Hallucinati Verified 04/24/24 09:55 ons Assessment & Plan Assessment & Plan (1) Schizoaffective disorder: Status: Chronic Code(s): F25.9 - Schizoaffective disorder, unspecified (2) Chronic post-traumatic stress disorder (PTSD): Status: Acute Code(s): F43.12 - Post-traumatic stress disorder, chronic (3) Cocaine use disorder: Status: Acute Code(s): F14.10 - Cocaine abuse, uncomplicated Plan Patient is a 43-year-old female with history of schizoaffective disorder, cocaine abuse, PTSD who presents for depression, psychotic symptoms, auditory hallucinations and SI thought to stab herself, in face of relapse with cocaine and being off medications. Patient reports that she was overall doing well, taking her medications until this past week when she relapsed with cocaine abuse. She said there was no trigger she just ended up doing so and for the past week has been bingeing on cocaine, not on her medications. Patient soon started developing auditory hallucinations, got depressed and became suicidal. She self presented to stay safe. Patient reports she wants to get back on her medications since they are helpful. She still has auditory hallucinations which are lingering around but are less intense and she is able to mostly ignore; still has suicidal thoughts but again less intense. Patient says she wants go program after discharge Formulation/clinical reasoning: Patient with similar presentation to past admissions; she has only been off her medications for a week. They were restarted in the ED and symptoms are starting to subside. -patient asked for STD check; positive for Trichomonas BV and started on metronidazole HOspital course: 04/26 better today, no SI and no AH. Medications well tolerated. She asks to get on Baclofen for cocaine cravings saying she's been on it before. handbell choir director reviewed risks/side-effects including potential for withdrawal which she understands but feels it helps and wants to proceed. -not scoring ciwa; will dc 04/27 mood improving. Checked labs and Valproic level WNL; associated labs wNL -continue current tx plan; pursue CSS 04/28 irritable; instructional writer understands she is still getting stable on her medications. -continue current tx plan 04/29 similar presentation; AH lingering; continue current treatment plan with medications with expectation that AH will fully resolve 04/30 Patient more out and about today, more engaged and interactive. Attended groups. Calm, polite. Patient remains in good behavioral and impulse control and appropriate with peers and staff. She is stabilizing well and hoping for a program 05/01 Continue treatment. Today working on group content, skills training. 05/02 continue tx plan Patient stable on current medication regimen Plan: CV Q 15 minute checks continue Baclofen 10mg bid for cocaine cravings continue Depakote ER 1000 q.h.s. continue Risperdal 2 mg daily, continue Risperdal 4 mg q.h.s. continue Buspirone 10 mg b.i.d. continue Metronidazole 500 mg b.i.d. 7 days Reason for continued inpatient stay Substantial Risk for: inability to function Time Spent With Patient Time: Total time managing care of this patient today ____ minutes.
[2024-05-02 20:00] VITALS: BP 123/69; PULSE 65; RESP 18; TEMP 36.4; O2SAT 96
[2024-05-02] MEDS: risperiDONE 2 MG TABLET 4 MG PO (21:49)
[2024-05-02] MEDS: traZODone HCL 50 MG TABLET PO (21:49)
[2024-05-02] MEDS: Divalproex Sodium ER 500 MG TAB.ER.24H 1000 MG PO (21:49)
[2024-05-02] MEDS: OLANZapine 5 MG TABLET PO (21:49)
[2024-05-03] MEDS: Nicotine 21 MG PATCH.TD24 TRANSDERMA (08:57)
[2024-05-03] MEDS: Baclofen 10 MG TABLET PO ×2 (08:58→20:37)
[2024-05-03] MEDS: metroNIDAZOLE 500 MG TABLET PO ×2 (08:58→20:37)
[2024-05-03] MEDS: risperiDONE 2 MG TABLET PO (08:58)
[2024-05-03] MEDS: busPIRone HCl 10 MG TABLET PO ×2 (08:58→20:37)
--- NOTE | 2024-05-03 16:52 | HO.PSYCHPN ---
Subjective Subjective Date of Service: 05/03/24 Reason For Visit: Psychosis/ SI Interim History: Quiet, isolative, irritable at times. wanting longer term program for drug abuse. pt reports depression and fear she will from her drug use; wants treatment Interested in CSS after discharge Medication Compliance: Yes Side effects from medications: No Attending Groups: Intermittent Review of Systems Acute medical concerns: No Medical Review of Systems: unchanged Review of Systems Review of Systems Denies Constitutional: Reports no additional constitutional complaints, Denies chills, Denies fever(s) and Denies night sweats Eyes: Reports no additional eye complaints, Denies blurry vision, Denies change in vision, Denies diplopia, Denies eye discharge, Denies loss of vision and Denies eye pain Denies dizziness Cardiovascular: Reports no additional cardiovascular complaints, Denies chest pain, Denies lightheadedness, Denies Loss of Consciousness and Denies dyspnea Respiratory: Reports no additional respiratory complaints and Denies dyspnea Gastrointestinal: Reports no additional gastrointestinal complaints, Denies abdominal pain, Denies melena, Denies hematochezia, Denies change in bowel habits and Denies change in stool character Musculoskeletal: Reports no additional musculoskeletal complaints, Denies numbness and Denies tingling Denies dizziness, Denies loss of vision, Denies numbness and Denies tingling Psychiatric: Reports auditory hallucinations, Denies homicidal ideation and Reports suicidal ideation Endocrine: Reports no additional endocrine complaints Hematologic/Lymphatic: Reports no additional hematologic/lymphatic complaints Allergic/Immunologic: Reports no additional allergic/immunologic complaints Mental Status Exam Mental Status Exam Narrative: Pt is alert and oriented; behavior is cooperative, calm, more engaged; patient is not in distress; dressed casually with cap on her head, adequate hygiene; mood is described as good and affect congruent, brighter, calm; eye contact appropriate; Speech is normal volume, rate, prosody; no psychomotor retardation present; thought process is organized and goal directed; Thought content concrete but goal oriented and organized; focused on getting into a program; otherwise pertinent to relevant topics and without any delusional content, paranoid ideations or grandiosity; no SI; no HI. No AVH. Patients insight and judgment fair. Patient Appearance: Fatigued Patient Orientation: Person, Place, Time and Situation Level of Consciousness: Alert Patient Behavior: Distractible and Good Eye Contact Mood Description: Labile Affect Description: Labile Patient Cognition Impaired: No Ability to Follow Directions: Good Speech Pattern: Spontaneous Speech Memory Description: Intact Thought Process: Intact Thought Content: positive for Intact Judgement: Fair Diagnostics Vital Signs (24Hr): Vital Signs - 24 hr 05/02/24 20:00 Temperature 97.5 F Pulse Rate 65 Respiratory Rate 18 Blood Pressure 123/69 Pulse Oximetry 96 Oxygen Delivery Method Room Air BMI result Body Mass Index 22.7 Labs 04/24/24 10:22 04/24/24 10:22 Medications Medications Current Medications Acetaminophen (Acetaminophen 325 Mg Tablet) 650 mg PO Q6H PRN PRN Reason: Headache/Pain Mild Scale (1-3) Al Hydroxide/Mg Hydroxide (Magnesium Hydrox/Alum Hydrox 30 Ml Oral.Susp) 30 ml PO Q6H PRN PRN Reason: Heartburn/Nausea Baclofen (Baclofen 10 Mg Tablet) 10 mg PO BID [facility] Last Admin: 05/03/24 08:58 Dose: 10 mg Buspirone HCl (Buspirone Hcl 10 Mg Tablet) 10 mg PO BID [facility] Last Admin: 05/03/24 08:58 Dose: 10 mg Divalproex Sodium (Divalproex Sodium Er 500 Mg Tab.Er.24h) 1,000 mg PO BEDTIME [facility] Last Admin: 05/02/24 21:49 Dose: 1,000 mg Hydroxyzine HCl (Hydroxyzine Hcl 25 Mg Tablet) 25 mg PO Q6H PRN PRN Reason: Anxiety Lorazepam (Lorazepam 1 Mg Tablet) 1 mg PO Q2H PRN PRN Reason: CIWA 6-10 Lorazepam (Lorazepam 1 Mg Tablet) 2 mg PO Q2H PRN PRN Reason: CIWA 11 and above Magnesium Hydroxide (Milk Of Magnesia 30 Ml Oral.Susp) 30 ml PO DAILY PRN PRN Reason: Constipation Metronidazole (Metronidazole 500 Mg Tablet) 500 mg PO BID [facility] Last Admin: 05/03/24 08:58 Dose: 500 mg Nicotine (Nicotine 21 Mg Patch.Td24) 21 mg TRANSDERMA DAILY PRN PRN Reason: smoking cessation Last Admin: 05/03/24 08:57 Dose: 21 mg Nicotine Polacrilex (Nicotine Polacrilex 2 Mg Gum) 4 mg BUCCAL Q2H PRN PRN Reason: Nicotine Cravings Olanzapine (Olanzapine 5 Mg Tablet) 5 mg PO TID PRN PRN Reason: agitation Last Admin: 05/02/24 21:49 Dose: 5 mg Risperidone (Risperidone 2 Mg Tablet) 4 mg PO BEDTIME [facility] Last Admin: 05/02/24 21:49 Dose: 4 mg Risperidone (Risperidone 2 Mg Tablet) 2 mg PO DAILY [facility] Last Admin: 05/03/24 08:58 Dose: 2 mg Trazodone HCl (Trazodone Hcl 50 Mg Tablet) 50 mg PO BEDTIME MRX1 PRN PRN Reason: Insomnia Last Admin: 05/02/24 21:49 Dose: 50 mg Allergies Allergies Allergy/AdvReac Type Severity Reaction Status Date / Time quetiapine [From Seroquel] Allergy Hallucinati Verified 04/24/24 09:55 ons haloperidol [From Haldol] AdvReac Hallucinati Verified 04/24/24 09:55 ons Assessment & Plan Assessment & Plan (1) Schizoaffective disorder: Status: Chronic Code(s): F25.9 - Schizoaffective disorder, unspecified (2) Chronic post-traumatic stress disorder (PTSD): Status: Acute Code(s): F43.12 - Post-traumatic stress disorder, chronic (3) Cocaine use disorder: Status: Acute Code(s): F14.10 - Cocaine abuse, uncomplicated Plan Patient is a 43-year-old female with history of schizoaffective disorder, cocaine abuse, PTSD who presents for depression, psychotic symptoms, auditory hallucinations and SI thought to stab herself, in face of relapse with cocaine and being off medications. Patient reports that she was overall doing well, taking her medications until this past week when she relapsed with cocaine abuse. She said there was no trigger she just ended up doing so and for the past week has been bingeing on cocaine, not on her medications. Patient soon started developing auditory hallucinations, got depressed and became suicidal. She self presented to stay safe. Patient reports she wants to get back on her medications since they are helpful. She still has auditory hallucinations which are lingering around but are less intense and she is able to mostly ignore; still has suicidal thoughts but again less intense. Patient says she wants go program after discharge Formulation/clinical reasoning: Patient with similar presentation to past admissions; she has only been off her medications for a week. They were restarted in the ED and symptoms are starting to subside. -patient asked for STD check; positive for Trichomonas BV and started on metronidazole HOspital course: 04/26 better today, no SI and no AH. Medications well tolerated. She asks to get on Baclofen for cocaine cravings saying she's been on it before. differential specialist reviewed risks/side-effects including potential for withdrawal which she understands but feels it helps and wants to proceed. -not scoring ciwa; will dc 04/27 mood improving. Checked labs and Valproic level WNL; associated labs wNL -continue current tx plan; pursue CSS 04/28 irritable; typewriter mechanic understands she is still getting stable on her medications. -continue current tx plan 04/29 similar presentation; AH lingering; continue current treatment plan with medications with expectation that AH will fully resolve 04/30 Patient more out and about today, more engaged and interactive. Attended groups. Calm, polite. Patient remains in good behavioral and impulse control and appropriate with peers and staff. She is stabilizing well and hoping for a program 05/01 Continue treatment. Today working on group content, skills training. 05/02 continue tx plan 05/03 contnue tx plan Patient stable on current medication regimen Plan: CV Q 15 minute checks continue Baclofen 10mg bid for cocaine cravings continue Depakote ER 1000 q.h.s. continue Risperdal 2 mg daily, continue Risperdal 4 mg q.h.s. continue Buspirone 10 mg b.i.d. continue Metronidazole 500 mg b.i.d. 7 days Reason for continued inpatient stay Substantial Risk for: harm to self and inability to function Time Spent With Patient Time: Total time managing care of this patient today ____ minutes.
[2024-05-03] MEDS: OLANZapine 5 MG TABLET PO (19:45)
[2024-05-03 20:00] VITALS: BP 106/68; PULSE 76; RESP 16; TEMP 36.4; O2SAT 99
[2024-05-03] MEDS: risperiDONE 2 MG TABLET 4 MG PO (20:37)
[2024-05-03] MEDS: Divalproex Sodium ER 500 MG TAB.ER.24H 1000 MG PO (20:37)
[2024-05-03] MEDS: traZODone HCL 50 MG TABLET PO (20:37)
[2024-05-04 07:57] VITALS: BP 107/59; PULSE 61; RESP 16; TEMP 36.3; O2SAT 97
[2024-05-04] MEDS: metroNIDAZOLE 500 MG TABLET PO (08:31)
[2024-05-04] MEDS: Baclofen 10 MG TABLET PO ×2 (08:31→20:01)
[2024-05-04] MEDS: busPIRone HCl 10 MG TABLET PO ×2 (08:31→20:01)
[2024-05-04] MEDS: risperiDONE 2 MG TABLET PO (08:31)
[2024-05-04] MEDS: Nicotine 21 MG PATCH.TD24 TRANSDERMA (09:10)
--- NOTE | 2024-05-04 09:25 | P.PNPSI_ITS ---
Subjective Subjective Date of Service: 05/04/24 Reason For Visit: Psychosis/ SI Interim History: met with patient; discussed with team; reviewed chart pt feeling much better with noticeably brighter affect; she says she would like to dc tomorrow and will be staying at her sisters. Pt decided against [facility] saying it's taking to long and no guarantee. Pt has often stayed w/ sister before. She reports some trouble sleeping and asks to try remeron to which senior technical writer agrees Mental Status Exam Mental Status Exam Narrative: Pt is alert and oriented; behavior is cooperative, friendly and calm; patient is not in distress; dressed in hospital attire with unkempt hair but adequate hygiene; mood is described as good and affect congruent; eye contact appropriate; Speech is normal rate, volume and prosody and not pressured; no psychomotor agitation/retardation present; thought process is organized and goal directed; Thought content is on tx; otherwise pertinent to relevant topics and without any delusional content, paranoid ideations or grandiosity; denies any SI/HI. There is no evidence of perceptual disturbance. Patients insight and judgment are intact. Diagnostics Vital Signs (24Hr): Vital Signs - 24 hr 05/03/24 20:00 05/04/24 07:57 Temperature 97.6 F 97.3 F Pulse Rate 76 61 Respiratory Rate 16 16 Blood Pressure 106/68 107/59 L Pulse Oximetry 99 97 Oxygen Delivery Method Room Air Room Air BMI result Body Mass Index 22.7 Labs 04/24/24 10:22 04/24/24 10:22 Medications Medications Current Medications Acetaminophen (Acetaminophen 325 Mg Tablet) 650 mg PO Q6H PRN PRN Reason: Headache/Pain Mild Scale (1-3) Al Hydroxide/Mg Hydroxide (Magnesium Hydrox/Alum Hydrox 30 Ml Oral.Susp) 30 ml PO Q6H PRN PRN Reason: Heartburn/Nausea Baclofen (Baclofen 10 Mg Tablet) 10 mg PO BID [facility] Last Admin: 05/04/24 08:31 Dose: 10 mg Buspirone HCl (Buspirone Hcl 10 Mg Tablet) 10 mg PO BID [facility] Last Admin: 05/04/24 08:31 Dose: 10 mg Divalproex Sodium (Divalproex Sodium Er 500 Mg Tab.Er.24h) 1,000 mg PO BEDTIME [facility] Last Admin: 05/03/24 20:37 Dose: 1,000 mg Hydroxyzine HCl (Hydroxyzine Hcl 25 Mg Tablet) 25 mg PO Q6H PRN PRN Reason: Anxiety Lorazepam (Lorazepam 1 Mg Tablet) 1 mg PO Q2H PRN PRN Reason: CIWA 6-10 Lorazepam (Lorazepam 1 Mg Tablet) 2 mg PO Q2H PRN PRN Reason: CIWA 11 and above Magnesium Hydroxide (Milk Of Magnesia 30 Ml Oral.Susp) 30 ml PO DAILY PRN PRN Reason: Constipation Metronidazole (Metronidazole 500 Mg Tablet) 500 mg PO BID [facility] Last Admin: 05/04/24 08:31 Dose: 500 mg Nicotine (Nicotine 21 Mg Patch.Td24) 21 mg TRANSDERMA DAILY PRN PRN Reason: smoking cessation Last Admin: 05/04/24 09:10 Dose: 21 mg Nicotine Polacrilex (Nicotine Polacrilex 2 Mg Gum) 4 mg BUCCAL Q2H PRN PRN Reason: Nicotine Cravings Olanzapine (Olanzapine 5 Mg Tablet) 5 mg PO TID PRN PRN Reason: agitation Last Admin: 05/03/24 19:45 Dose: 5 mg Risperidone (Risperidone 2 Mg Tablet) 4 mg PO BEDTIME [facility] Last Admin: 05/03/24 20:37 Dose: 4 mg Risperidone (Risperidone 2 Mg Tablet) 2 mg PO DAILY [facility] Last Admin: 05/04/24 08:31 Dose: 2 mg Trazodone HCl (Trazodone Hcl 50 Mg Tablet) 50 mg PO BEDTIME MRX1 PRN PRN Reason: Insomnia Last Admin: 05/03/24 20:37 Dose: 50 mg Allergies Allergies Allergy/AdvReac Type Severity Reaction Status Date / Time quetiapine [From Seroquel] Allergy Hallucinati Verified 04/24/24 09:55 ons haloperidol [From Haldol] AdvReac Hallucinati Verified 04/24/24 09:55 ons Assessment & Plan Assessment & Plan (1) Schizoaffective disorder: Status: Chronic Code(s): F25.9 - Schizoaffective disorder, unspecified (2) Chronic post-traumatic stress disorder (PTSD): Status: Acute Code(s): F43.12 - Post-traumatic stress disorder, chronic (3) Cocaine use disorder: Status: Acute Code(s): F14.10 - Cocaine abuse, uncomplicated Plan Patient is a 43-year-old female with history of schizoaffective disorder, cocaine abuse, PTSD who presents for depression, psychotic symptoms, auditory hallucinations and SI thought to stab herself, in face of relapse with cocaine and being off medications. Patient reports that she was overall doing well, taking her medications until this past week when she relapsed with cocaine abuse. She said there was no trigger she just ended up doing so and for the past week has been bingeing on cocaine, not on her medications. Patient soon started developing auditory hallucinations, got depressed and became suicidal. She self presented to stay safe. Patient reports she wants to get back on her medications since they are helpful. She still has auditory hallucinations which are lingering around but are less intense and she is able to mostly ignore; still has suicidal thoughts but again less intense. Patient says she wants go program after discharge Formulation/clinical reasoning: Patient with similar presentation to past admissions; she has only been off her medications for a week. They were restarted in the ED and symptoms are starting to subside. -patient asked for STD check; positive for Trichomonas BV and started on metronidazole HOspital course: 04/26 better today, no SI and no AH. Medications well tolerated. She asks to get on Baclofen for cocaine cravings saying she's been on it before. brand mgr reviewed risks/side-effects including potential for withdrawal which she understands but feels it helps and wants to proceed. -not scoring ciwa; will dc 04/27 mood improving. Checked labs and Valproic level WNL; associated labs wNL -continue current tx plan; pursue CSS 04/28 irritable; senior technical writer understands she is still getting stable on her medications. -continue current tx plan 04/29 similar presentation; AH lingering; continue current treatment plan with medications with expectation that AH will fully resolve 04/30 Patient more out and about today, more engaged and interactive. Attended groups. Calm, polite. Patient remains in good behavioral and impulse control and appropriate with peers and staff. She is stabilizing well and hoping for a program 05/01 Continue treatment. Today working on group content, skills training. 05/02 continue tx plan 05/04 pt doing much better with noticeably brighter affect; decided against program and will instead go to sisters. denies SI/HI or AVH. trouble sleeping and wants to try remeron. Pt not in imminent risk for harm to self/others and request for dc honored. Plan: CV Q 15 minute checks start Remeron 7.5mg qhs continue Baclofen 10mg bid for cocaine cravings continue Depakote ER 1000 q.h.s. continue Risperdal 2 mg daily, continue Risperdal 4 mg q.h.s. continue Buspirone 10 mg b.i.d. continue Metronidazole DC Patient educated on: diagnosis and medication risk/benefits Informed Consent: understands Reason for continued inpatient stay Substantial Risk for: stable for discharge Time Spent With Patient Time: Total time managing care of this patient today ____ minutes.
--- NOTE | 2024-05-04 16:33 | P.DS_ITS ---
DS: Providers Provider Date of Service: 05/05/24 Date of admission: 04/24/24 15:56 Date of discharge: 05/05/24 Primary care physician: Unknown Physician Consults: 04/24/24 13:19 Consult to Care Team Stat Comment: Reason for consultation: SI 04/24/24 19:38 Addiction Medicine Routine Consulting Provider: Addiction Covering Reason for consultation: Per Policy DS: Diagnosis Discharge Diagnosis (1) Schizoaffective disorder: Status: Chronic (2) Chronic post-traumatic stress disorder (PTSD): Status: Acute (3) Cocaine use disorder: Status: Acute DS: Medications Discharge Medications Home Medications: Home Medications ?Medication ?Instructions ?Recorded ?Confirmed buspirone 10 mg tablet 10 mg PO BID 04/24/24 04/24/24 divalproex 500 mg tablet,extended 1,000 mg PO BEDTIME 04/24/24 04/24/24 release 24 hr (Depakote ER) risperidone 2 mg tablet 2 mg PO DAILY 04/24/24 04/24/24 risperidone 4 mg tablet (Risperdal) 4 mg PO QPM 04/24/24 04/24/24 Previous Rx's ?Medication ?Instructions ?Recorded olanzapine 5 mg tablet 5 mg PO BID PRN Hallucinations 30 02/26/24 days #60 tabs Mental Status Exam Mental Status Exam Narrative: Pt is alert and oriented; behavior is cooperative, friendly and calm; patient is not in distress; dressed in casual attire with adequate hygiene; mood is desc ribed as good and affect congruent; eye contact appropriate; Speech is normal rate, volume and prosody and not pressured; no psychomotor agitation/retardation present; thought process is organized and goal directed; Thought content is on tx; otherwise pertinent to relevant topics and without any delusional content, paranoid ideations or grandiosity; denies any SI/HI. There is no evidence of perceptual disturbance. Patients insight and judgment are intact. Data Data Completed and Pending Completed studies during hospitalization [Text1]: 04/24/24 Unknown Urine clean catch - Urine norris top Urine Culture - Final DS: Summary Hospital Course Hospital Course: HPI: Patient is a 43-year-old female with history of schizoaffective disorder, cocaine abuse, PTSD who presents for depression, psychotic symptoms, auditory hallucinations and SI thought to stab herself, in face of relapse with cocaine and being off medications. Patient reports that she was overall doing well, taking her medications until this past week when she relapsed with cocaine abuse. She said there was no trigger she just ended up doing so and for the past week has been bingeing on cocaine, not on her medications. Patient soon started developing auditory hallucinations, got depressed and became suicidal. She self presented to stay safe. Patient reports she wants to get back on her medications since they are helpful. She still has auditory hallucinations which are lingering around but are less intense and she is able to mostly ignore; still has suicidal thoughts but again less intense. Patient says she wants go p rogram after discharge HOspital course: On admission, patient was calm, cooperative but irritable. Some lingering SI and AH. Patient presenting very similar with past admissions; she reports she has only been off her medications for a week and wants to continue with them since they were restarted in the emergency room. -patient asked for STD check; positive for Trichomonas BV and started on metronidazole. She asked to be started on baclofen for cocaine cravings Patient's SI fully resolved; AH lingered for few more days but also resolved. Over subsequent days her mood slowly improved. She was intermittently irritable but kept herself in good behavioral and impulse control throughout her time in the unit. She was mostly isolative, keeping to herself but remained interacting with peers and staff appropriately. Patient initially wanted to go to a program after discharge for substance abuse. However she eventually decided to discharge to his sister's which is what she has done in the past; she plan to work out her sobriety on her own in the community. As discharge approached her mood significantly improved and her affect was noticeably brighter, smiling, expressing gratitude and out and about in the milieu more. Patient felt good about her discharge plan and medication regimen; she asked to try Remeron for sleep. The day before discharge she asked about getting on Wellbutrin for nicotine cravings, the patch and gum not working, however she accepted that she will need to work this out with her outpatient provider. Patient had returned to baseline and was asking for discharge. While she will very likely continue to struggle with intermittent substance abuse and mood decompensation, this is a chronic issue for her of which she is well aware, I will not resolve with longer stay on inpatient unit. Patient is not in imminent risk for harm to self and her request for discharge honored. Time spent discussing smoking cessation with patient: 3 to 10 minutes Status at Discharge Functional status at discharge: independent ambulation Overall status at discharge: patient is back to baseline Time Spent with Patient Time attestation: Total time managing care of this patient today 40____ minutes. Time spent: Greater than 30 minutes Discharge Plan Discharge Anticipated Discharge Date/Time: 05/05/24 11:00 Patient Disposition: Home, Self-Care Discharge Diagnosis: Schizoaffective disorder, bipolar type recurrent, severe in full remission Referrals: [facility] [Other] - 1 Week (Referral to [facility] for substance use treatment ) [facility] [Other] - 1 Week (Referral to [facility] for substance use treatment Patient should follow-up on referral after discharge ) [facility] [Other] - 1 Week (Referral to [facility] Patient should follow-up on referral after discharge ) Physician,Unknown J [Primary Care Provider] - 1 Week Discharge Medications: New mirtazapine 7.5 mg Tablet 7.5 mg PO BEDTIME 30 Days Qty: 30 1RF baclofen 10 mg Tablet 10 mg PO BID 30 Days Qty: 60 1RF trazodone 50 mg Tablet 50 mg PO BEDTIME MRX1 PRN (Reason: Insomnia) 30 Days Qty: 30 1RF Continued risperidone [Risperdal] 4 mg tablet 4 mg PO QPM 30 Days Qty: 30 1RF olanzapine 5 mg Tablet 5 mg PO BID PRN (Reason: Hallucinations/agitation) 30 Days Qty: 60 1RF risperidone 2 mg tablet 2 mg PO DAILY 30 Days Qty: 30 1RF buspirone 10 mg tablet 10 mg PO BID 30 Days Qty: 60 1RF divalproex 500 mg tablet extended release 24 hr 1,000 mg PO BEDTIME 30 Days Qty: 60 1RF Discharge Orders: Discharge Order (Routine); Ordered 05/05/24 Ordered By: Charlie Johnson Diet: Regular diet Activity on Discharge: As tolerated Stand Alone Forms: Patient Portal Discharge page, Community Support Print Language: Moldovan Care Plan Goals: Maintain mood and safe behaviors Take medications as prescribed Continue to pursue sobriety Practice coping skills Continue with outpatient providers and reach out to them as needed Health Concerns: Mood stability and behaviors Sobriety Plan of Treatment: Follow up with your PCP, psychiatric provider and other outpatient providers regarding above concerns Take medications as prescribed Assessment: Risk assessment at time of discharge:? Patient was interviewed prior to discharge and found to be fully oriented and without any SI or HI. Patient has improved insight and judgment and wants to continue treatment. Patient is not in imminent risk of harm to self or others and has a safety plan that includes presenting to the closest ER or calling 911 if feeling unsafe.? Patient has been observed closely by nursing and unit staff throughout admission; patient has not engaged in any behaviors that suggest dangerousness to self or others and has demonstrated appropriate behaviors and impulse control
[2024-05-04 20:00] VITALS: BP 99/66; PULSE 82; RESP 16; TEMP 37.1; O2SAT 96
[2024-05-04] MEDS: OLANZapine 5 MG TABLET PO (20:01)
[2024-05-04] MEDS: Divalproex Sodium ER 500 MG TAB.ER.24H 1000 MG PO (20:01)
[2024-05-04] MEDS: risperiDONE 2 MG TABLET 4 MG PO (20:01)
[2024-05-04] MEDS: Mirtazapine 7.5 MG TABLET PO (20:01)
[2024-05-05 08:00] VITALS: RESP 16
[2024-05-05] MEDS: Baclofen 10 MG TABLET PO (08:48)
[2024-05-05] MEDS: risperiDONE 2 MG TABLET PO (08:48)
[2024-05-05] MEDS: busPIRone HCl 10 MG TABLET PO (08:48)
[2024-05-05] MEDS: Naloxone HCl Nasal TAKE HOME 4 MG SPRAY 8 MG NOSTRILALT (10:00)
== END 2024-05-05 10:45 | disposition home or self-care (01) | DRG 885 ==
LOC: HO.ED 14:46 → HO.PM5 16:44
PROVIDERS: Physician Assistant Medical; Admitting Provider Psychiatry & Neurology Psychiatry; Emergency Provider Emergency Medicine; Visit Provider Psychiatry & Neurology Psychiatry
DX: F25.0 Schizoaffective disorder, bipolar type (principal); R45.851 Suicidal ideations; Z59.02 Unsheltered homelessness; F43.12 Post-traumatic stress disorder, chronic; F17.210 Nicotine dependence, cigarettes, uncomplicated; F14.10 Cocaine abuse, uncomplicated; Z91.148 Patient's other noncompliance with medication regimen for other reason; Z71.6 Tobacco abuse counseling; Z79.899 Other long term (current) drug therapy
CPT/HCPCS: 0352U; 0353U; 36415; 80053; 80061; 80076; 80143; 80164; 80179; 80307; 81001; 81025; 82140; 83036; 85025; 87086; 93005; 99285; S9485

== ENCOUNTER → 2024-04-24 14:59 | Outpatient (BNV) | payer MEDICARE, MEDICAID, SELFPAY | PROVIDERS: Admitting Provider Psychiatry & Neurology Psychiatry; Emergency Provider Emergency Medicine; Visit Provider Internal Medicine | DX: I49.9 Cardiac arrhythmia, unspecified (principal) | CPT/HCPCS: 93010 ==

== ENCOUNTER → 2024-04-24 15:56 | Outpatient (BNV) | payer MEDICARE, MEDICAID, SELFPAY | PROVIDERS: Admitting Provider Psychiatry & Neurology Psychiatry; Emergency Provider Emergency Medicine; Visit Provider Psychiatry & Neurology Psychiatry | DX: F25.1 Schizoaffective disorder, depressive type (principal); F14.10 Cocaine abuse, uncomplicated; F43.12 Post-traumatic stress disorder, chronic | CPT/HCPCS: 99222; 99231; 99232; 99239 ==

== ENCOUNTER 2024-06-15 16:51 | Inpatient (IN) | payer MEDICARE, MEDICAID, SELFPAY ==
[2024-06-15 16:53] VITALS: BP 103/59; PULSE 72; RESP 16; TEMP 36.6; O2SAT 97; BMI 21.9
--- NOTE | 2024-06-15 17:13 | ED_ITS ---
HPI - General Adult General Chief complaint: Psychiatric Symptoms Stated complaint: Crisis/Hearing Voices Time Seen by Provider: 06/15/24 16:57 History of Present Illness HPI narrative: Patient is a 43-year-old female with a history of schizoaffective disorder. History of cocaine abuse. History of PTSD. Presented today with having thoughts of wanting to kill herself. Patient's hearing voices telling her to kill herself. No chest pain no nausea no vomiting no systemic complaints. Patient from Street. Related Data Previous Rx's ?Medication ?Instructions ?Recorded divalproex 500 mg tablet,extended 1,000 mg (2 x 500 mg) PO BEDTIME 05/05/24 release 24 hr 30 days #60 tabs risperidone 2 mg tablet 2 mg PO DAILY 30 days #30 tabs 05/05/24 risperidone 4 mg tablet (Risperdal) 4 mg PO QPM 30 days #30 tabs 05/05/24 Allergies Allergy/AdvReac Type Severity Reaction Status Date / Time quetiapine [From Seroquel] Allergy Hallucinati Verified 06/15/24 16:55 ons haloperidol [From Haldol] AdvReac Hallucinati Verified 06/15/24 16:55 ons Review of Systems 2 Review of Systems: No fever no chills no chest pain or shortness of breath PMFSH Past Medical History Medical History Suicidal ideation Chronic post-traumatic stress disorder (PTSD) Cannabis use disorder, moderate, dependence Cocaine use disorder Schizoaffective disorder Social History Social History Household Members: Unknown / Unable to assess Household Members Other:: sister Housing: Unknown / Unable to assess Housing Other:: [address] Do you presently have visiting nurse or other home services: No Alcohol intake: current Alcohol intake frequency: a few times a week Comment: no additional interventions needed Patient Tobacco Use Status: Current everyday Tobacco user Tobacco use type: Cigarette Cigarette Packs Per Day: 1 Cigarettes Per Day: 20.0 Years Smoked: 5 Smoked in Last 30 Days: Yes e-Cigarette/Vaping Use: Currently Using Second Hand Smoke Exposure: No Use of substances other than those prescribed or required for medical reasons: Yes Substance Use Type: Crack/Cocaine Advance Directives: No Advance Directives Information Provided: No service: No Sexual orientation: Unable to collect Physical Exam ED Vital Signs: Vital Signs - 24 hr 06/15/24 16:53 Temperature 97.8 F Pulse Rate 72 Respiratory Rate 16 Blood Pressure 103/59 L Pulse Oximetry 97 Oxygen Delivery Method Room Air BMI result Body Mass Index 21.9 Appearance: Alert. Oriented X3. No acute distress. Eyes: Pupils equal, round and reactive to light. ENT: Pharynx normal. Neck: Normal inspection. Neck supple. No lymph nodes noted. No crepitus CVS: Normal heart rate and rhythm. Pulses normal. Normal S1 and S2 Respiratory: No respiratory distress. Breath sounds normal. No Wheezing. No rales Abdomen: Soft and nontender. No rigidity. No distention. good BS x4 Skin: Skin warm and dry. Normal skin color. Normal skin turgor. Extremities: No lower extremity edema. Neurovascular intact to all extremities. No Lacerations. No Rash Neuro: Oriented X 3. No motor deficit. No sensory deficit. Moving all extermities. No slurred speech. Cranial nerves grossly intact Medications Administered Discontinued Medications Generic Name Dose Route Start Last Admin Trade Name Freq PRN Reason Stop Dose Admin Lorazepam 0.5 mg 06/15/24 17:13 06/15/24 17:22 Lorazepam 0.5 Mg Tablet PO 06/15/24 17:14 0.5 mg ONCE ONE Administration Medical Decision Making Medical Decision Making [facility] Narrative: Well-appearing no acute distress. Awaiting crisis evaluation. Patient is medically cleared awaiting crisis evaluation had thoughts about killing herself Differential Diagnosis Differential Diagnoses: The differential diagnosis associated with the presentation includes Suicidal ideation Admission/Observation Consideration of admission/observation: Escalation of care including admission/observation considered Consult Healthcare Provider Management of the patient was discussed with: Senior Java Web Developer (Care team) Lab Data [facility] Lab Attestation statement: I reviewed the patient's lab results. 06/15/24 17:37 06/15/24 17:37 Labs: Lab Results 06/15/24 Range/Units 17:37 WBC 6.2 (4.8-10.8) X10*3/uL RBC 4.48 (4.20-5.50) X10*6/uL Hgb 12.2 (12.0-16.0) g/dl Hct 37.2 (37.0-47.0) % MCV 83.0 (80.0-98.0) fL MCH 27.2 (27.0-33.0) pg MCHC 32.8 (31.0-35.0) g/dl RDW 15.1 (11.0-16.0) % Plt Count 347 (160-400) X10*3/uL MPV 9.6 (9.4-12.3) fL Immature Gran % (Auto) 0.2 (0.0-0.4) % Neut % (Auto) 34.1 L (45-73) % Lymph % (Auto) 45.2 H (20-40) % [place] % (Auto) 7.6 (2-11) % Eos % (Auto) 12.1 H (0-4) % Baso % (Auto) 0.8 (0-2) % Lymph # (Auto) 2.8 (1.2-4.9) X10*3/uL [place] # (Auto) 0.5 (0.1-1.2) X10*3/uL Eos # (Auto) 0.8 H (0.0-0.4) X10*3/uL Baso # (Auto) 0.1 (0.0-0.2) X10*3/uL Abs Immat Gran (auto) 0.01 (0.00-0.03) X10*3/uL Absolute Neuts (auto) 2.1 (2.0-8.3) x10*3/uL Absolute Nucleated RBC 0.000 (0.0-0.012) X10*3/uL Nucleated RBC % (auto) 0.0 (0.0-0.2) /100WBC Sodium 143 (135-145) mmol/L Potassium 3.3 (3.3-5.1) mmol/L Chloride 108 (96-108) mmol/L Carbon Dioxide 26 (22-29) mmol/L Anion Gap 12 (12-20) BUN 13 (9-16) mg/dL Creatinine 0.92 (0.5-1.4) mg/dL Estim Creat Clear Calc 63.0 Estimated GFR > 60 Random Glucose 108 (60-115) mg/dL Calcium 9.5 (8.4-10.2) mg/dL Total Bilirubin 0.2 (0.0-1.0) mg/dL AST 17 (5-31) U/L ALT 12 (0-31) U/L Alkaline Phosphatase 47 (39-117) U/L Total Protein 6.9 (6.5-8.0) g/dL Albumin 3.8 (3.5-5.0) g/dL Urine Color Dark Yellow Urine Appearance Cloudy Urine pH 5.5 (5.0-9.0) Ur Specific [place] >= 1.030 H (1.005-1.025) Urine Protein 30 (1+) H (Neg-Trace) mg/dL Urine Glucose (UA) Negative (Negative) mg/dL Urine Ketones 40 (Negative) mg/dL Urine Blood Negative (Negative) Urine Nitrite Negative (Negative) Ur Leukocyte Esterase Negative (Negative) Urine RBC 0-2 (0-2) /HPF Urine WBC 0-5 (0-5) /HPF Ur Squamous Epith Cells 11-20 (0-2) /HPF Calcium Oxalate Crystal Present Urine Bacteria 4+ (None Seen) Hyaline Casts 0-2 (0-2) /LPF Urine Test NEGATIVE (NEGATIVE) Urine Opiates Screen Not Detected (Not Detect) Ur Buprenorphine Scrn Not Detected (Not Detect) ng/mL Ur Oxycodone Screen Not Detected (Not Detect) ng/mL Urine Methadone Screen Not Detected (Not Detect) ng/mL Urine Fentanyl Screen POSITIVE H (Not Detect) Ur Barbiturates Screen POSITIVE H (Not Detect) Ur Phencyclidine Scrn Not Detected (Not Detect) Ur Amphetamines Screen Not Detected (Not Detect) U Benzodiazepines Scrn Not Detected (Not Detect) Urine Cocaine Screen POSITIVE H (Not Detect) U Marijuana (THC) Screen POSITIVE H (Not Detect) Ethyl Alcohol < 10 mg/dL Chronic Conditions Polysubstance abuse Social Determinants Patient?s care significantly limited by Social Determinants of Health including: Alcoholism and drug addiction in family and Problems related to primary support group Discharge Plan Discharge Clinical Impression: Cocaine use disorder, Schizoaffective disorder, Cannabis use disorder, moderate, dependence, Suicidal ideation Patient Disposition: Still a Patient Prescriptions: No Action risperidone [Risperdal] 4 mg tablet 4 mg PO QPM 30 Days Qty: 30 1RF risperidone 2 mg tablet 2 mg PO DAILY 30 Days Qty: 30 1RF divalproex 500 mg tablet extended release 24 hr 1,000 mg PO BEDTIME 30 Days Qty: 60 1RF Interventions: Wake-Suicide Risk Severity Scale Last Done: 06/15/24 17:11 Print Language: Kyrgyz
[2024-06-15] MEDS: LORazepam 0.5 MG TABLET PO (17:22)
[2024-06-15 17:42] LABS: MANUAL DIFF FLAG NO
[2024-06-15 17:52] LABS: Basophils Absolute Auto 0.1 X10*3/uL (0.0-0.2); Basophils Percent Auto 0.8 % (0-2); Eosinophils Absolute Auto 0.8 X10*3/uL (0.0-0.4); Eosinophils Percent Auto 12.1 % (0-4); Hematocrit 37.2 % (37.0-47.0); Hemoglobin 12.2 g/dl (12.0-16.0); Imm Gran Abs Auto 0.01 X10*3/uL (0.00-0.03); Imm Gran Pct Auto 0.2 % (0.0-0.4); Lymphocytes Absolute Auto 2.8 X10*3/uL (1.2-4.9); Lymphocytes Percent Auto 45.2 % (20-40); Mean Corpuscular HGB Conc 32.8 g/dl (31.0-35.0); Mean Corpuscular Hemoglobin 27.2 pg (27.0-33.0); Mean Platelet Volume 9.6 fL (9.4-12.3); Monocytes Absolute Auto 0.5 X10*3/uL (0.1-1.2); Monocytes Percent Auto 7.6 % (2-11); Neutrophils Absolute Auto 2.1 x10*3/uL (2.0-8.3); Neutrophils Percent Auto 34.1 % (45-73); Platelet Count 347 X10*3/uL (160-400); Red Blood Count 4.48 X10*6/uL (4.20-5.50); Red Cell Distribution Width 15.1 % (11.0-16.0); White Blood Count 6.2 X10*3/uL (4.8-10.8)
[2024-06-15 17:53] LABS: Appearance Urine Cloudy; Color Urine Dark Yellow; Glucose Urine UA Negative (Negative); Leukocyte Esterase Urine Negative (Negative); Nitrite Urine Negative (Negative); PH 5.5 (5.0-9.0); Specific Gravity - Urine >= 1.030 (1.005-1.025); UMIC TRIGGER UA YES; Urine Blood Negative (Negative); Urine Ketones 40 mg/dL (Negative); Urine Protein 30 (1+) mg/dL (Neg-Trace)
[2024-06-15 18:02] LABS: Alanine Aminotransferase 12 U/L (0-31); Albumin Level 3.8 g/dL (3.5-5.0); Alkaline Phosphatase 47 U/L (39-117); Anion Gap 12 (12-20); Aspartate Amino Transferase 17 U/L (5-31); Bilirubin Total 0.2 mg/dL (0.0-1.0); Blood Urea Nitrogen 13 mg/dL (9-16); Calcium 9.5 mg/dL (8.4-10.2); Carbon Dioxide 26 mmol/L (22-29); Chloride 108 mmol/L (96-108); Estimated Glomerular Filt Rate > 60; Ethanol < 10 mg/dL; Glucose Random 108 mg/dL (60-115); Potassium 3.3 mmol/L (3.3-5.1); Sodium 143 mmol/L (135-145); Total Protein 6.9 g/dL (6.5-8.0)
[2024-06-15 18:17] LABS: UPreg QC Valid YES; Urine Pregnancy NEGATIVE (NEGATIVE)
--- NOTE | 2024-06-15 18:34 | PC.NURSE ---
Alert and oriented, brought in by friend. Patient reports has been hearing voices who are telling her she is stupid and she should hurt herself. Patient reports plant to stab herself. States used cocaine yesterday and drank etoh yesterday. Reports bilateral foot pain from walking so much. Request ativan to help with SI thoughts. Seen by provider, medicated per mar with good effect. Changed into hospital attire. Seen by care team
[2024-06-15 18:47] LABS: Bacteria Urine 4+ (None Seen); Calcium Oxalate Crystals Urine Present; Hyaline Casts Urine 0-2 /LPF (0-2); RBC Urine 0-2 /HPF (0-2); WBC Urine 0-5 /HPF (0-5)
[2024-06-15 21:59] LABS: Amphetamine Screen Urine Not Detected (Not Detect); Barbiturates, Urine POSITIVE (Not Detect); Benzodiazepines Screen Urine Not Detected (Not Detect); Buprenorphine Scr Not Detected (Not Detect); Cannabinoid Screen Urine POSITIVE (Not Detect); Cocaine Screen Urine POSITIVE (Not Detect); Fentanyl, urine POSITIVE (Not Detect); Methadone Screen, Urine Not Detected (Not Detect); Opiate Screen Urine Not Detected (Not Detect); Oxycodone Screen Urine Not Detected (Not Detect); Phencyclidine Screen Urine Not Detected (Not Detect)
--- NOTE | 2024-06-16 | ECG_ITS ---
Test Reason : Check for prolonged QT Blood Pressure : / mmHG Vent. Rate : 057 BPM Atrial Rate : 057 BPM P-R Int : 130 ms QRS Dur : 084 ms QT Int : 468 ms P-R-T Axes : 014 055 023 degrees QTc Int : 455 ms Sinus bradycardia with sinus arrhythmia Possible Anterior infarct , age undetermined Abnormal ECG When compared with ECG of 24-APR-2024 14:59, No significant change was found Referred By: Generic ED Physician Electronically Signed By:INDIA JOLLY MD
[2024-06-16 06:29] VITALS: RESP 16
--- NOTE | 2024-06-16 07:09 | PC.NURSE ---
Assumed care of patient at 0645. Patient is observed resting quietly in their bed. No distress observed, breathing is even and unlabored.
[2024-06-16 08:41] VITALS: BP 96/68; PULSE 75; RESP 14; TEMP 36.2; O2SAT 97
[2024-06-16 12:44] LABS: Valproate < 12.5 mcg/mL (50.0-100.0)
[2024-06-16 13:27] VITALS: BMI 22.2
[2024-06-16 13:30] VITALS: BP 107/70; PULSE 63; RESP 16; TEMP 36.1; O2SAT 97
--- NOTE | 2024-06-16 13:41 | P.HPPS_ITS ---
HPI Date of Service: 06/16/24 Chief Complaint: crisis Sources of Information: patient interviewed, chart reviewed and crisis/core team assessment reviewed HPI Subjective Notes: [place] Warning and Conditional Voluntary Narrative: Patient is a 43 year old female with hx of schizoaffective d/o, PTSD and cocaine use d/o who self presented to [facility] d/t suicidal ideation with plan to stab herself or jump out of a car secondary to increased auditory hallucinations. Per crisis report, pt has a hx of medication noncompliance and crack use. Pt was last admitted to on 04/25/24 with similar presentation. Pt reported auditory hallucinations threatening to harm her. denies any sleep disturbance. Pt has an intake with [facility] for therapy on 05/13/24 which she did not show for; pt also missed medication provider appointment on 06/05/24. Per patient's step mother, pt was doing fine until 3 days ago when she left the home . During admission assessment, pt presents alert and oriented x3, calm, cooperative. Patient reports feeling anxious and depressed ; pt stated, I came to the hospital because I'm hearing voices telling me I'm dumb and that they are going to kill me. I'm also having visual hallucinations of people telling me to have a baby . Pt reports suicidal ideation to jump out of a moving car . Pt denies HI. Pt reports she has been medication compliant. She reports she has been using crack daily but is unclear of amount. UTOX positive for marijuana, cocaine, fentanyl and barbiturates. Pt stated, when I use crack, the voices get loud but when I'm clean they decrease . Pt reports she would like a referral to an outpatient therapist. She would like to go to a CSS after discharge. Past Psychiatric History: IP: Pt reports numerous admissions. Outpatient provider through [facility]; pt does not recall name of provider. Trials: risperidone, depakote Suicide attempts: Overdose 20 years ago; other information says more recent overdose attempts were in dec 2020 and january 2019. Medical Evaluation Reviewed: Yes [facility] Medical History Suicidal ideation Chronic post-traumatic stress disorder (PTSD) Cannabis use disorder, moderate, dependence Cocaine use disorder Schizoaffective disorder Family History: schizophrenia autism Social History: Lives with her father and step-mother, single, 23 y/o son. she and her son are apparently estranged. Source of income is SSI, disability, food stamps. born and raised in [place], [place]. dropped out of school in 10th grade. mother in 2016. Substance History: pt reports daily crack use. unclear of amount. UTOX positive for marijuana, cocaine, fentanyl and barbiturates Trauma History: yes Diagnostics Vital Signs (24Hr): Vital Signs - 24 hr 06/15/24 16:53 06/16/24 06:29 06/16/24 08:41 Temperature 97.8 F 97.2 F Pulse Rate 72 75 Respiratory Rate 16 16 14 Blood Pressure 103/59 L 96/68 Pulse Oximetry 97 97 Oxygen Delivery Method Room Air Room Air Room Air 06/16/24 13:30 Temperature 96.9 F Pulse Rate 63 Respiratory Rate 16 Blood Pressure 107/70 Pulse Oximetry 97 Oxygen Delivery Method Room Air BMI result Body Mass Index 22.2 Labs 06/15/24 17:37 06/15/24 17:37 Labs: Laboratory Results - last 48 hr 06/15/24 06/16/24 17:37 12:10 WBC 6.2 RBC 4.48 Hgb 12.2 Hct 37.2 MCV 83.0 MCH 27.2 MCHC 32.8 RDW 15.1 Plt Count 347 MPV 9.6 Immature Gran % (Auto) 0.2 Neut % (Auto) 34.1 L Lymph % (Auto) 45.2 H [place] % (Auto) 7.6 Eos % (Auto) 12.1 H Baso % (Auto) 0.8 Lymph # (Auto) 2.8 [place] # (Auto) 0.5 Eos # (Auto) 0.8 H Baso # (Auto) 0.1 Abs Immat Gran (auto) 0.01 Absolute Neuts (auto) 2.1 Absolute Nucleated RBC 0.000 Nucleated RBC % (auto) 0.0 Sodium 143 Potassium 3.3 Chloride 108 Carbon Dioxide 26 Anion Gap 12 BUN 13 Creatinine 0.92 Estim Creat Clear Calc 63.0 Estimated GFR > 60 Random Glucose 108 Calcium 9.5 Total Bilirubin 0.2 AST 17 ALT 12 Alkaline Phosphatase 47 Total Protein 6.9 Albumin 3.8 Hold Red Top See Note Urine Color Dark Yellow Urine Appearance Cloudy Urine pH 5.5 Ur Specific [place] >= 1.030 H Urine Protein 30 (1+) H Urine Glucose (UA) Negative Urine Ketones 40 Urine Blood Negative Urine Nitrite Negative Ur Leukocyte Esterase Negative Urine RBC 0-2 Urine WBC 0-5 Ur Squamous Epith Cells 11-20 Calcium Oxalate Crystal Present Urine Bacteria 4+ Hyaline Casts 0-2 Urine Test NEGATIVE Urine Opiates Screen Not Detected Ur Buprenorphine Scrn Not Detected Ur Oxycodone Screen Not Detected Urine Methadone Screen Not Detected Urine Fentanyl Screen POSITIVE H Ur Barbiturates Screen POSITIVE H Valproic Acid < 12.5 L Ur Phencyclidine Scrn Not Detected Ur Amphetamines Screen Not Detected U Benzodiazepines Scrn Not Detected Urine Cocaine Screen POSITIVE H U Marijuana (THC) Screen POSITIVE H Ethyl Alcohol < 10 Meds/Allergies Meds Home Medications ?Medication ?Instructions ?Recorded ?Confirmed ?Type baclofen 10 mg tablet 10 mg PO BID 06/16/24 06/16/24 History bupropion HCl 75 mg tablet 75 mg PO DAILY 06/16/24 06/16/24 History buspirone 10 mg tablet 10 mg PO TID 06/16/24 06/16/24 History olanzapine 5 mg tablet 5 mg PO BID 06/16/24 06/16/24 History trazodone 50 mg tablet 50 mg PO BEDTIME 06/16/24 06/16/24 History Allergies Allergies Allergy/AdvReac Type Severity Reaction Status Date / Time quetiapine [From Seroquel] Allergy Hallucinati Verified 06/15/24 16:55 ons haloperidol [From Haldol] AdvReac Hallucinati Verified 06/15/24 16:55 ons Mental Status Exam Mental Status Exam Narrative: Pt is alert and oriented; behavior is cooperative and calm; dressed in casual attire; mood is described as depressed ; eye contact appropriate; Speech is normal rate, volume and not pressured; thought process is organized and goal directed; Thought content is on tx; denies HI. Pt reports suicidal ideation with plan to jump out of moving car. Pt reports auditory and visual hallucinations. Assessment & Plan Assessment & Plan (1) Schizoaffective disorder: Status: Chronic Code(s): F25.9 - Schizoaffective disorder, unspecified (2) Chronic post-traumatic stress disorder (PTSD): Status: Acute Code(s): F43.12 - Post-traumatic stress disorder, chronic (3) Cocaine use disorder: Status: Acute Code(s): F14.10 - Cocaine abuse, uncomplicated Plan Patient is a 43 year old female with hx of schizoaffective d/o, PTSD and cocaine use d/o who self presented to [facility] d/t suicidal ideation with plan to stab herself or jump out of a car secondary to increased auditory hallucinations. Plan: CV 15 minute safety checks Continue home medications Start: Baclofen 10mg PO TID referral to [facility] referral for outpatient therapist encourage groups discharge planning Patient educated on: diagnosis, medication risk/benefits and substance abuse Informed Consent: understands Reason for continued inpatient stay Substantial Risk for: harm to self and med/psych decompensation Statement Statement: I have reviewed the history and physical and performed a pertinent examination on my patient. No changes have occurred unless specified. If the History and Physical was not performed prior to admission, the Hospitalist's service will be consulted for completing the admission physical. Time Spent With Patient Time: Total time managing care of this patient today _60___ minutes.
--- NOTE | 2024-06-16 15:02 | PC.ADMIT ---
Addendum entered and electronically signed by Velvet Short RN 06/16/24 19:41: Room changed to anteroom due to paranoia/agitation/screaming loudly intermittently. Screaming at staff to get the fuck out of her face frequently. Accepted prn Hydroxyzine 25 mg and Risperdal 2mg at 1609 with no effect, Renu Tamayo notified. Ativan 1mg and Olanzapine 5mg po given at 1748 with effect. Original Note: This is one of multiple admissions for this 43 y.o. woman to this [facility] at [facility]. Referred by [facility] Care Team with Dx of Schizoaffective disorder, unspecified, PTSD, chronic, Cocaine abuse, uncomplicated. Nurse to nurse done with ED Pod prior to admission. Arrived on unit on a Section 12A and placed on 15 min safety checks. Skin check done with 2 staff members present upon admission during clothing place change roof bolter. Tox screen positive for Fentayl, Barbituates, Cocaine, THC. Pt reports Crack Cocaine use daily or every other day, denies all other substances positive on tox screen. Reports etoh use 2- drinks 2-3x week. States she cannot drink or use crack in her father's home, as he is a [employer]. Precipitating events to admission: self presented to [facility] ED due to SI with plan to stab self or jump out of a car. Pt was endorsing AH; continues to report AH, command. States AH tell her to hurt herself and tell her they are going to shoot her in the head, hit and kick her, and tell her she is stupid. Reports VH of people telling her to have a baby. States crack use makes her voices loud, and they should lessen without use. Denies cravings or withdrawal symptoms currently. Denies SI/HI currently. Rates depression #7, anxiety #6 on scale 1-10(10 worse). Reports wanting [facility] after discharge and thought that was where she was being admitted to. Mood lability, paranoia noted upon admission to this unit. Initially calm/cooperative while filling out menu. Ate lunch in room and covered up with blankets. While this news writer was in her room speaking to roommate, this pt uncovered head and screamed, You want me to be homeless don't you. Get the fuck out of my face. . Repeated this multiple times, although not being engaged by this news writer. Stated she was not going to participate in admission process with this news writer, and stated, Get the fuck out of my face. You think it is funny to make somebody homeless. Covered head back up with covers each time after yelling. Out of bed to meet with provider minutes after this. Asked provider if she were a doctor and got out of bed without agitation/irritability noted. Completed admission process when this news writer entered same room as provider and plan was agreed on to complete admission process prior to receiving meds. Low frustration tolerance noted, but able to complete admission process. Poor historian, pt's report differs from crisis eval. Denied PTSD hx, but has Dx PTSD. Back to bed to rest after meeting with this news writer. Signed CV after meeting with provider, Renu Tamayo.
[2024-06-16] MEDS: hydrOXYzine HCL 25 MG TABLET PO ×2 (16:09→22:08)
[2024-06-16] MEDS: risperiDONE 2 MG TABLET PO (16:09)
[2024-06-16] MEDS: LORazepam 1 MG TABLET PO (17:48)
[2024-06-16] MEDS: OLANZapine 5 MG TABLET PO ×2 (17:48→22:08)
[2024-06-16 22:00] VITALS: BP 103/68; PULSE 74; RESP 14; TEMP 36.4; O2SAT 96
[2024-06-16] MEDS: Divalproex Sodium ER 500 MG TAB.ER.24H 1000 MG PO (22:07)
[2024-06-16] MEDS: traZODone HCL 50 MG TABLET PO (22:07)
[2024-06-16] MEDS: risperiDONE 2 MG TABLET 4 MG PO (22:08)
[2024-06-16] MEDS: Baclofen 10 MG TABLET PO (22:08)
--- NOTE | 2024-06-17 05:45 | PC.NURSE ---
0400 [facility] assessment-patient did not engage in assessment as she was soundly asleep. respiration even and unlabored. no diaphoresis or distress noted.
[2024-06-17 07:46] VITALS: BP 90/52; PULSE 53; RESP 16; TEMP 36.7; O2SAT 97
[2024-06-17] MEDS: risperiDONE 2 MG TABLET PO (09:06)
[2024-06-17] MEDS: Baclofen 10 MG TABLET PO ×3 (09:06→21:48)
[2024-06-17] MEDS: Nicotine 21 MG PATCH.TD24 TRANSDERMA (09:08)
--- NOTE | 2024-06-17 09:28 | P.PNPSI_ITS ---
Subjective Subjective Date of Service: 06/17/24 Reason For Visit: crisis Subjective Notes: Conditional Voluntary Interim History: Reviewed with Dr. Perez. Keeping to self. Laying in bed most of shift. no groups. Pt continues to report feeling depressed and anxious ; pt stated, I'm still feeling suicidal but don't have a plan. I'm having voices too and seeing things . Pt encouraged to attend groups. pt denies HI. Pt requesting to speak with social work regarding CSS; healthcare social worker, Myriam, notified. Medication Compliance: Yes Side effects from medications: No Attending Groups: No Review of Systems Constitutional: Reports as per HPI Eyes: Reports as per HPI Reports as per HPI Cardiovascular: Reports as per HPI Respiratory: Reports as per HPI Gastrointestinal: Reports as per HPI Musculoskeletal: Reports as per HPI Skin/Breast: Reports as per HPI Reports as per HPI Psychiatric: Reports as per HPI Endocrine: Reports as per HPI Hematologic/Lymphatic: Reports as per HPI Allergic/Immunologic: Reports as per HPI Mental Status Exam Mental Status Exam Narrative: Pt is alert and oriented; behavior is cooperative and calm; dressed in casual attire; mood is described as depressed ; eye contact appropriate; Speech is normal rate, volume and not pressured; thought process is organized and goal directed; Thought content is on tx; denies HI. Pt reports suicidal ideation with plan to jump out of moving car. Pt reports auditory and visual hallucinations. Diagnostics Vital Signs (24Hr): Vital Signs - 24 hr 06/16/24 13:30 06/16/24 22:00 06/17/24 07:46 Temperature 96.9 F 97.6 F 98.0 F Pulse Rate 63 74 53 Respiratory Rate 16 14 16 Blood Pressure 107/70 103/68 90/52 L Pulse Oximetry 97 96 97 Oxygen Delivery Method Room Air Room Air Room Air BMI result Body Mass Index 22.2 Labs 06/15/24 17:37 06/17/24 08:16 Labs: Laboratory Results - last 48 hr 06/15/24 06/16/24 17:37 12:10 WBC 6.2 RBC 4.48 Hgb 12.2 Hct 37.2 MCV 83.0 MCH 27.2 MCHC 32.8 RDW 15.1 Plt Count 347 MPV 9.6 Immature Gran % (Auto) 0.2 Neut % (Auto) 34.1 L Lymph % (Auto) 45.2 H [place] % (Auto) 7.6 Eos % (Auto) 12.1 H Baso % (Auto) 0.8 Lymph # (Auto) 2.8 [place] # (Auto) 0.5 Eos # (Auto) 0.8 H Baso # (Auto) 0.1 Abs Immat Gran (auto) 0.01 Absolute Neuts (auto) 2.1 Absolute Nucleated RBC 0.000 Nucleated RBC % (auto) 0.0 Sodium 143 Potassium 3.3 Chloride 108 Carbon Dioxide 26 Anion Gap 12 BUN 13 Creatinine 0.92 Estim Creat Clear Calc 63.0 Estimated GFR > 60 Random Glucose 108 Calcium 9.5 Total Bilirubin 0.2 AST 17 ALT 12 Alkaline Phosphatase 47 Total Protein 6.9 Albumin 3.8 Hold Red Top See Note Urine Color Dark Yellow Urine Appearance Cloudy Urine pH 5.5 Ur Specific [place] >= 1.030 H Urine Protein 30 (1+) H Urine Glucose (UA) Negative Urine Ketones 40 Urine Blood Negative Urine Nitrite Negative Ur Leukocyte Esterase Negative Urine RBC 0-2 Urine WBC 0-5 Ur Squamous Epith Cells 11-20 Calcium Oxalate Crystal Present Urine Bacteria 4+ Hyaline Casts 0-2 Urine Test NEGATIVE Urine Opiates Screen Not Detected Ur Buprenorphine Scrn Not Detected Ur Oxycodone Screen Not Detected Urine Methadone Screen Not Detected Urine Fentanyl Screen POSITIVE H Ur Barbiturates Screen POSITIVE H Valproic Acid < 12.5 L Ur Phencyclidine Scrn Not Detected Ur Amphetamines Screen Not Detected U Benzodiazepines Scrn Not Detected Urine Cocaine Screen POSITIVE H U Marijuana (THC) Screen POSITIVE H Ethyl Alcohol < 10 Medications Medications Current Medications Acetaminophen (Acetaminophen 325 Mg Tablet) 650 mg PO Q6H PRN PRN Reason: Headache/Pain Mild Scale (1-3) Al Hydroxide/Mg Hydroxide (Magnesium Hydrox/Alum Hydrox 30 Ml Oral.Susp) 30 ml PO Q6H PRN PRN Reason: Heartburn/Nausea Baclofen (Baclofen 10 Mg Tablet) 10 mg PO TID YUDITH Last Admin: 06/17/24 09:06 Dose: 10 mg Divalproex Sodium (Divalproex Sodium Er 500 Mg Tab.Er.24h) 1,000 mg PO BEDTIME YUDITH Last Admin: 06/16/24 22:07 Dose: 1,000 mg Hydroxyzine HCl (Hydroxyzine Hcl 25 Mg Tablet) 25 mg PO Q6H PRN PRN Reason: Anxiety Last Admin: 06/16/24 22:08 Dose: 25 mg Magnesium Hydroxide (Milk Of Magnesia 30 Ml Oral.Susp) 30 ml PO DAILY PRN PRN Reason: Constipation Nicotine (Nicotine 21 Mg Patch.Td24) 21 mg TRANSDERMA DAILY [facility] Last Admin: 06/17/24 09:08 Dose: 21 mg Nicotine Polacrilex (Nicotine Polacrilex 2 Mg Gum) 4 mg BUCCAL Q2H PRN PRN Reason: Nicotine Cravings Olanzapine (Olanzapine 5 Mg Tablet) 5 mg PO Q4H PRN PRN Reason: agitation Last Admin: 06/16/24 22:08 Dose: 5 mg Risperidone (Risperidone 2 Mg Tablet) 4 mg PO BEDTIME YUDITH Last Admin: 06/16/24 22:08 Dose: 4 mg Risperidone (Risperidone 2 Mg Tablet) 2 mg PO DAILY [facility] Last Admin: 06/17/24 09:06 Dose: 2 mg Trazodone HCl (Trazodone Hcl 50 Mg Tablet) 50 mg PO BEDTIME MRX1 PRN PRN Reason: Insomnia Last Admin: 06/16/24 22:07 Dose: 50 mg Allergies Allergies Allergy/AdvReac Type Severity Reaction Status Date / Time quetiapine [From Seroquel] Allergy Hallucinati Verified 06/15/24 16:55 ons haloperidol [From Haldol] AdvReac Hallucinati Verified 06/15/24 16:55 ons Assessment & Plan Assessment & Plan (1) Schizoaffective disorder: Status: Chronic Code(s): F25.9 - Schizoaffective disorder, unspecified (2) Chronic post-traumatic stress disorder (PTSD): Status: Acute Code(s): F43.12 - Post-traumatic stress disorder, chronic (3) Cocaine use disorder: Status: Acute Code(s): F14.10 - Cocaine abuse, uncomplicated Plan Patient is a 43 year old female with hx of schizoaffective d/o, PTSD and cocaine use d/o who self [place] [facility] [place]/t suicidal ideation with plan to stab herself or jump out of a car secondary to increased auditory hallucinations. Plan: CV 15 minute safety checks Continue home medications Start: Baclofen 10mg PO TID referral to [facility] referral for outpatient therapist encourage groups discharge planning 06/17: Keeping to self. Laying in bed most of shift. no groups. Pt continues to report feeling depressed and anxious ; pt stated, I'm still feeling suicidal but don't have a plan. I'm having voices too and seeing things . Pt encouraged to attend groups. pt denies HI. Pt requesting to speak with social work regarding CSS; healthcare social worker, Myriam, notified. Patient educated on: diagnosis and medication risk/benefits Reason for continued inpatient stay Substantial Risk for: harm to self and med/psych decompensation Time Spent With Patient Time: Total time managing care of this patient today _20___ minutes.
[2024-06-17] MEDS: OLANZapine 5 MG TABLET PO ×3 (11:34→21:49)
[2024-06-17 14:35] LABS: Alanine Aminotransferase 9 U/L (0-31); Albumin Level 3.4 g/dL (3.5-5.0); Alkaline Phosphatase 34 U/L (39-117); Anion Gap 11 (12-20); Aspartate Amino Transferase 14 U/L (5-31); Bilirubin Total 0.1 mg/dL (0.0-1.0); Blood Urea Nitrogen 11 mg/dL (9-16); Calcium 9.1 mg/dL (8.4-10.2); Carbon Dioxide 25 mmol/L (22-29); Chloride 110 mmol/L (96-108); Cholesterol 134 mg/dL (<200); Creatinine Clr Calc Pharmacy 76.2; Estimated Glomerular Filt Rate > 60; Glucose Fasting 81 mg/dL (60-99); HDL Cholesterol 45 mg/dL (>40); LDL Cholesterol Calculated 78 mg/dL (<100); Potassium 3.9 mmol/L (3.3-5.1); Sodium 142 mmol/L (135-145); Total Protein 6.3 g/dL (6.5-8.0); Triglycerides 58 mg/dL (<150)
[2024-06-17 21:15] VITALS: BP 102/58; PULSE 69; RESP 16; TEMP 36.3; O2SAT 96
[2024-06-17] MEDS: Divalproex Sodium ER 500 MG TAB.ER.24H 1000 MG PO (21:48)
[2024-06-17] MEDS: hydrOXYzine HCL 25 MG TABLET PO (21:49)
[2024-06-17] MEDS: risperiDONE 2 MG TABLET 4 MG PO (21:49)
[2024-06-17] MEDS: traZODone HCL 50 MG TABLET PO (21:49)
[2024-06-18 07:45] VITALS: BP 106/69; PULSE 65; RESP 14; TEMP 36; O2SAT 98
[2024-06-18] MEDS: risperiDONE 2 MG TABLET PO (08:48)
[2024-06-18] MEDS: Nicotine 21 MG PATCH.TD24 TRANSDERMA (08:48)
[2024-06-18] MEDS: Baclofen 10 MG TABLET PO ×3 (08:48→20:44)
[2024-06-18] MEDS: OLANZapine 5 MG TABLET PO ×3 (08:52→20:44)
[2024-06-18] MEDS: hydrOXYzine HCL 25 MG TABLET PO ×2 (08:52→20:44)
--- NOTE | 2024-06-18 09:15 | P.PNPSI_ITS ---
Subjective Subjective Date of Service: 06/18/24 Reason For Visit: crisis Subjective Notes: Conditional Voluntary Interim History: Reviewed with Dr. Perez. Pt continues to report feeling depressed and anxious ; Pt stated, I'm starting to feel a little better . She reports no longer having auditory or visual hallucinations. Pt hopes to get into [facility] or the [facility]. Patient denies SI/HI. She reports sleeping well. Medication Compliance: Yes Side effects from medications: No Attending Groups: No Review of Systems Constitutional: Reports as per HPI Eyes: Reports as per HPI Reports as per HPI Cardiovascular: Reports as per HPI Respiratory: Reports as per HPI Gastrointestinal: Reports as per HPI Musculoskeletal: Reports as per HPI Skin/Breast: Reports as per HPI Reports as per HPI Psychiatric: Reports as per HPI Endocrine: Reports as per HPI Hematologic/Lymphatic: Reports as per HPI Allergic/Immunologic: Reports as per HPI Mental Status Exam Mental Status Exam Narrative: Pt is alert and oriented; behavior is cooperative and calm; dressed in casual attire; mood is described as depressed ; eye contact appropriate; Speech is normal rate, volume and not pressured; thought process is organized and goal directed; Thought content is on tx; denies SI/HI/AH/VH. Diagnostics Vital Signs (24Hr): Vital Signs - 24 hr 06/17/24 21:15 06/18/24 07:45 Temperature 97.4 F 96.8 F Pulse Rate 69 65 Respiratory Rate 16 14 Blood Pressure 102/58 L 106/69 Pulse Oximetry 96 98 Oxygen Delivery Method Room Air Room Air BMI result Body Mass Index 22.2 Labs 06/15/24 17:37 06/17/24 08:16 Labs: Laboratory Results - last 48 hr 06/16/24 06/17/24 12:10 08:16 Sodium 142 Potassium 3.9 Chloride 110 H Carbon Dioxide 25 Anion Gap 11 L BUN 11 Creatinine 0.76 Estim Creat Clear Calc 76.2 Estimated GFR > 60 Fasting Glucose 81 Calcium 9.1 Total Bilirubin 0.1 AST 14 ALT 9 Alkaline Phosphatase 34 L Total Protein 6.3 L Albumin 3.4 L Triglycerides 58 Cholesterol 134 LDL Cholesterol, Calc 78 HDL Cholesterol 45 Hold Red Top See Note Valproic Acid < 12.5 L Medications Medications Current Medications Acetaminophen (Acetaminophen 325 Mg Tablet) 650 mg PO Q6H PRN PRN Reason: Headache/Pain Mild Scale (1-3) Al Hydroxide/Mg Hydroxide (Magnesium Hydrox/Alum Hydrox 30 Ml Oral.Susp) 30 ml PO Q6H PRN PRN Reason: Heartburn/Nausea Baclofen (Baclofen 10 Mg Tablet) 10 mg PO TID [facility] Last Admin: 06/18/24 08:48 Dose: 10 mg Divalproex Sodium (Divalproex Sodium Er 500 Mg Tab.Er.24h) 1,000 mg PO BEDTIME [facility] Last Admin: 06/17/24 21:48 Dose: 1,000 mg Hydroxyzine HCl (Hydroxyzine Hcl 25 Mg Tablet) 25 mg PO Q6H PRN PRN Reason: Anxiety Last Admin: 06/18/24 08:52 Dose: 25 mg Magnesium Hydroxide (Milk Of Magnesia 30 Ml Oral.Susp) 30 ml PO DAILY PRN PRN Reason: Constipation Nicotine (Nicotine 21 Mg Patch.Td24) 21 mg TRANSDERMA DAILY [facility] Last Admin: 06/18/24 08:48 Dose: 21 mg Nicotine Polacrilex (Nicotine Polacrilex 2 Mg Gum) 4 mg BUCCAL Q2H PRN PRN Reason: Nicotine Cravings Olanzapine (Olanzapine 5 Mg Tablet) 5 mg PO Q4H PRN PRN Reason: agitation Last Admin: 06/18/24 08:52 Dose: 5 mg Risperidone (Risperidone 2 Mg Tablet) 4 mg PO BEDTIME [facility] Last Admin: 06/17/24 21:49 Dose: 4 mg Risperidone (Risperidone 2 Mg Tablet) 2 mg PO DAILY [facility] Last Admin: 06/18/24 08:48 Dose: 2 mg Trazodone HCl (Trazodone Hcl 50 Mg Tablet) 50 mg PO BEDTIME MRX1 PRN PRN Reason: Insomnia Last Admin: 06/17/24 21:49 Dose: 50 mg Allergies Allergies Allergy/AdvReac Type Severity Reaction Status Date / Time quetiapine [From Seroquel] Allergy Hallucinati Verified 06/15/24 16:55 ons haloperidol [From Haldol] AdvReac Hallucinati Verified 06/15/24 16:55 ons Assessment & Plan Assessment & Plan (1) Schizoaffective disorder: Status: Chronic Code(s): F25.9 - Schizoaffective disorder, unspecified (2) Chronic post-traumatic stress disorder (PTSD): Status: Acute Code(s): F43.12 - Post-traumatic stress disorder, chronic (3) Cocaine use disorder: Status: Acute Code(s): F14.10 - Cocaine abuse, uncomplicated Plan Patient is a 43 year old female with hx of schizoaffective d/o, PTSD and cocaine use d/o who self [place] [facility] [place]/t suicidal ideation with plan to stab herself or jump out of a car secondary to increased auditory hallucinations. Plan: CV 15 minute safety checks Continue home medications Start: Baclofen 10mg PO TID referral to [facility] referral for outpatient therapist encourage groups discharge planning 06/17: Keeping to self. Laying in bed most of shift. no groups. Pt continues to report feeling depressed and anxious ; pt stated, I'm still feeling suicidal but don't have a plan. I'm having voices too and seeing things . Pt encouraged to attend groups. pt denies HI. Pt requesting to speak with social work regarding CSS; healthcare social worker, Myriam, notified. 06/18: Pt continues to report feeling depressed and anxious ; Pt stated, I'm starting to feel a little better . She reports no longer having auditory or visual hallucinations. Pt hopes to get into [facility] or the [facility]. Patient denies SI/HI. She reports sleeping well. Continue current tx plan. Patient educated on: diagnosis and medication risk/benefits Informed Consent: understands Reason for continued inpatient stay Substantial Risk for: med/psych decompensation Time Spent With Patient Time: Total time managing care of this patient today _20___ minutes.
[2024-06-18 20:30] VITALS: BP 109/54; PULSE 60; RESP 14; TEMP 36.2; O2SAT 98
[2024-06-18] MEDS: risperiDONE 2 MG TABLET 4 MG PO (20:44)
[2024-06-18] MEDS: traZODone HCL 50 MG TABLET PO (20:44)
[2024-06-18] MEDS: Divalproex Sodium ER 500 MG TAB.ER.24H 1000 MG PO (20:44)
--- NOTE | 2024-06-19 07:37 | HO.PSYCHPN ---
Subjective Subjective Date of Service: 06/19/24 Reason For Visit: crisis Subjective Notes: Conditional Voluntary Interim History: Reviewed with Dr. Perez. Pt reports feeling better today; feels her anxiety and depression are decreasing. Observed out of bed more today, but keeping to self. Pt denies SI/HI/VH/AH. Medication Compliance: Yes Side effects from medications: No Attending Groups: No Review of Systems Constitutional: Reports as per HPI Eyes: Reports as per HPI Reports as per HPI Cardiovascular: Reports as per HPI Respiratory: Reports as per HPI Gastrointestinal: Reports as per HPI Musculoskeletal: Reports as per HPI Skin/Breast: Reports as per HPI Reports as per HPI Psychiatric: Reports as per HPI Endocrine: Reports as per HPI Hematologic/Lymphatic: Reports as per HPI Allergic/Immunologic: Reports as per HPI Mental Status Exam Mental Status Exam Narrative: Pt is alert and oriented; behavior is cooperative and calm; dressed in casual attire; mood is described as better ; eye contact appropriate; Speech is normal rate, volume and not pressured; thought process is organized and goal directed; Thought content is on tx; denies SI/HI/AH/VH. Diagnostics Vital Signs (24Hr): Vital Signs - 24 hr 06/18/24 07:45 06/18/24 20:30 Temperature 96.8 F 97.1 F Pulse Rate 65 60 Respiratory Rate 14 14 Blood Pressure 106/69 109/54 L Pulse Oximetry 98 98 Oxygen Delivery Method Room Air Room Air BMI result Body Mass Index 22.2 Labs 06/15/24 17:37 06/17/24 08:16 Labs: Laboratory Results - last 48 hr 06/17/24 08:16 Sodium 142 Potassium 3.9 Chloride 110 H Carbon Dioxide 25 Anion Gap 11 L BUN 11 Creatinine 0.76 Estim Creat Clear Calc 76.2 Estimated GFR > 60 Fasting Glucose 81 Calcium 9.1 Total Bilirubin 0.1 AST 14 ALT 9 Alkaline Phosphatase 34 L Total Protein 6.3 L Albumin 3.4 L Triglycerides 58 Cholesterol 134 LDL Cholesterol, Calc 78 HDL Cholesterol 45 Medications Medications Current Medications Acetaminophen (Acetaminophen 325 Mg Tablet) 650 mg PO Q6H PRN PRN Reason: Headache/Pain Mild Scale (1-3) Al Hydroxide/Mg Hydroxide (Magnesium Hydrox/Alum Hydrox 30 Ml Oral.Susp) 30 ml PO Q6H PRN PRN Reason: Heartburn/Nausea Baclofen (Baclofen 10 Mg Tablet) 10 mg PO TID [facility] Last Admin: 06/18/24 20:44 Dose: 10 mg Divalproex Sodium (Divalproex Sodium Er 500 Mg Tab.Er.24h) 1,000 mg PO BEDTIME YUDITH Last Admin: 06/18/24 20:44 Dose: 1,000 mg Hydroxyzine HCl (Hydroxyzine Hcl 25 Mg Tablet) 25 mg PO Q6H PRN PRN Reason: Anxiety Last Admin: 06/18/24 20:44 Dose: 25 mg Magnesium Hydroxide (Milk Of Magnesia 30 Ml Oral.Susp) 30 ml PO DAILY PRN PRN Reason: Constipation Nicotine (Nicotine 21 Mg Patch.Td24) 21 mg TRANSDERMA DAILY [facility] Last Admin: 06/18/24 08:48 Dose: 21 mg Nicotine Polacrilex (Nicotine Polacrilex 2 Mg Gum) 4 mg BUCCAL Q2H PRN PRN Reason: Nicotine Cravings Olanzapine (Olanzapine 5 Mg Tablet) 5 mg PO Q4H PRN PRN Reason: agitation Last Admin: 06/18/24 20:44 Dose: 5 mg Risperidone (Risperidone 2 Mg Tablet) 4 mg PO BEDTIME YUDITH Last Admin: 06/18/24 20:44 Dose: 4 mg Risperidone (Risperidone 2 Mg Tablet) 2 mg PO DAILY [facility] Last Admin: 06/18/24 08:48 Dose: 2 mg Trazodone HCl (Trazodone Hcl 50 Mg Tablet) 50 mg PO BEDTIME MRX1 PRN PRN Reason: Insomnia Last Admin: 06/18/24 20:44 Dose: 50 mg Allergies Allergies Allergy/AdvReac Type Severity Reaction Status Date / Time quetiapine [From Seroquel] Allergy Hallucinati Verified 06/15/24 16:55 ons haloperidol [From Haldol] AdvReac Hallucinati Verified 06/15/24 16:55 ons Assessment & Plan Assessment & Plan (1) Schizoaffective disorder: Status: Chronic Code(s): F25.9 - Schizoaffective disorder, unspecified (2) Chronic post-traumatic stress disorder (PTSD): Status: Acute Code(s): F43.12 - Post-traumatic stress disorder, chronic (3) Cocaine use disorder: Status: Acute Code(s): F14.10 - Cocaine abuse, uncomplicated Plan Patient is a 43 year old female with hx of schizoaffective d/o, PTSD and cocaine use d/o who self [place] [facility] [place]/t suicidal ideation with plan to stab herself or jump out of a car secondary to increased auditory hallucinations. Plan: CV 15 minute safety checks Continue home medications Start: Baclofen 10mg PO TID referral to [facility] referral for outpatient therapist encourage groups discharge planning 06/17: Keeping to self. Laying in bed most of shift. no groups. Pt continues to report feeling depressed and anxious ; pt stated, I'm still feeling suicidal but don't have a plan. I'm having voices too and seeing things . Pt encouraged to attend groups. pt denies HI. Pt requesting to speak with social work regarding CSS; social media job titles, Myriam, notified. 06/18: Pt continues to report feeling depressed and anxious ; Pt stated, I'm starting to feel a little better . She reports no longer having auditory or visual hallucinations. Pt hopes to get into [facility] or the [facility]. Patient denies SI/HI. She reports sleeping well. Continue current tx plan. 06/19: continue current tx plan. pt requested to be restarted on wellbutrin to assist in smoking cessation. start: wellbutrin 75mg PO daily Patient educated on: diagnosis, medication risk/benefits and therapeutic strategies Reason for continued inpatient stay Substantial Risk for: med/psych decompensation Time Spent With Patient Time: Total time managing care of this patient today _20___ minutes.
[2024-06-19 08:40] VITALS: BP 100/66; PULSE 77; RESP 16; TEMP 36.5; O2SAT 99
[2024-06-19] MEDS: Nicotine 21 MG PATCH.TD24 TRANSDERMA (08:41)
[2024-06-19] MEDS: Baclofen 10 MG TABLET PO ×3 (08:41→20:58)
[2024-06-19] MEDS: risperiDONE 2 MG TABLET PO (08:41)
[2024-06-19 15:16] LABS: Ammonia 41 umol/L (13-55)
[2024-06-19 15:22] LABS: Valproate 73.9 mcg/mL (50.0-100.0)
[2024-06-19 15:24] LABS: Alanine Aminotransferase 12 U/L (0-31); Albumin Level 4.5 g/dL (3.5-5.0); Alkaline Phosphatase 56 U/L (39-117); Aspartate Amino Transferase 14 U/L (5-31); Bilirubin Direct < 0.2 mg/dL (0.0-0.5); Bilirubin Total 0.1 mg/dL (0.0-1.0); Total Protein 8.1 g/dL (6.5-8.0)
[2024-06-19 20:45] VITALS: BP 106/66; PULSE 76; RESP 16; TEMP 36.6; O2SAT 99
[2024-06-19] MEDS: Divalproex Sodium ER 500 MG TAB.ER.24H 1000 MG PO (20:58)
[2024-06-19] MEDS: traZODone HCL 50 MG TABLET PO (20:58)
[2024-06-19] MEDS: OLANZapine 5 MG TABLET PO (20:58)
[2024-06-19] MEDS: hydrOXYzine HCL 25 MG TABLET PO (20:58)
[2024-06-19] MEDS: risperiDONE 2 MG TABLET 4 MG PO (20:58)
[2024-06-20 08:05] VITALS: BP 110/58; PULSE 59; RESP 12; TEMP 36.5; O2SAT 100
[2024-06-20] MEDS: risperiDONE 2 MG TABLET PO (08:47)
[2024-06-20] MEDS: Baclofen 10 MG TABLET PO ×3 (08:47→21:32)
[2024-06-20] MEDS: buPROPion HCL 75 MG TABLET PO (08:47)
[2024-06-20] MEDS: Nicotine 21 MG PATCH.TD24 TRANSDERMA (08:48)
--- NOTE | 2024-06-20 13:54 | HO.PSYCHPN ---
Subjective Subjective Date of Service: 06/20/24 Reason For Visit: crisis Subjective Notes: Conditional Voluntary Interim History: The nursing staff reported the patient had been on with good behavioral control, she remains calm her Depakote level 73.9. The patient has denies visual hallucinations she had been fully compliant with medications she slept well. On interview the patient denies new symptoms controlled with current treatment. Mental Status Exam Mental Status Exam Patient Appearance: Well Grooomed and Appropriate Patient Orientation: Person and Situation Level of Consciousness: Awake and Appropriate Patient Behavior: Guarded and Passive Mood Description: Withdrawn Affect Description: Constricted Patient Cognition Impaired: Yes Ability to Follow Directions: Good Speech Pattern: Clear Hallucinations: None Delusions: Not Present Thought Process: Distracted and Slowed Thinking Thought Content: positive for [place] and positive for Poverty of Content Judgement: Fair Diagnostics Vital Signs (24Hr): Vital Signs - 24 hr 06/19/24 20:45 06/20/24 08:05 Temperature 97.8 F 97.7 F Pulse Rate 76 59 Respiratory Rate 16 12 Blood Pressure 106/66 110/58 L Pulse Oximetry 99 100 Oxygen Delivery Method Room Air Room Air BMI result Body Mass Index 22.2 Labs 06/15/24 17:37 06/17/24 08:16 Labs: Laboratory Results - last 48 hr 06/19/24 06/19/24 14:55 14:56 Total Bilirubin 0.1 Direct Bilirubin < 0.2 AST 14 ALT 12 Alkaline Phosphatase 56 Ammonia 41 Total Protein 8.1 H Albumin 4.5 Valproic Acid 73.9 Medications Medications Current Medications Acetaminophen (Acetaminophen 325 Mg Tablet) 650 mg PO Q6H PRN PRN Reason: Headache/Pain Mild Scale (1-3) Al Hydroxide/Mg Hydroxide (Magnesium Hydrox/Alum Hydrox 30 Ml Oral.Susp) 30 ml PO Q6H PRN PRN Reason: Heartburn/Nausea Baclofen (Baclofen 10 Mg Tablet) 10 mg PO TID [facility] Last Admin: 06/20/24 08:47 Dose: 10 mg Bupropion HCl (Bupropion Hcl 75 Mg Tablet) 75 mg PO DAILY [facility] Last Admin: 06/20/24 08:47 Dose: 75 mg Divalproex Sodium (Divalproex Sodium Er 500 Mg Tab.Er.24h) 1,000 mg PO BEDTIME [facility] Last Admin: 06/19/24 20:58 Dose: 1,000 mg Hydroxyzine HCl (Hydroxyzine Hcl 25 Mg Tablet) 25 mg PO Q6H PRN PRN Reason: Anxiety Last Admin: 06/19/24 20:58 Dose: 25 mg Magnesium Hydroxide (Milk Of Magnesia 30 Ml Oral.Susp) 30 ml PO DAILY PRN PRN Reason: Constipation Nicotine (Nicotine 21 Mg Patch.Td24) 21 mg TRANSDERMA DAILY [facility] Last Admin: 06/20/24 08:48 Dose: 21 mg Nicotine Polacrilex (Nicotine Polacrilex 2 Mg Gum) 4 mg BUCCAL Q2H PRN PRN Reason: Nicotine Cravings Olanzapine (Olanzapine 5 Mg Tablet) 5 mg PO Q4H PRN PRN Reason: agitation Last Admin: 06/19/24 20:58 Dose: 5 mg Risperidone (Risperidone 2 Mg Tablet) 4 mg PO BEDTIME [facility] Last Admin: 06/19/24 20:58 Dose: 4 mg Risperidone (Risperidone 2 Mg Tablet) 2 mg PO DAILY [facility] Last Admin: 06/20/24 08:47 Dose: 2 mg Trazodone HCl (Trazodone Hcl 50 Mg Tablet) 50 mg PO BEDTIME MRX1 PRN PRN Reason: Insomnia Last Admin: 06/19/24 20:58 Dose: 50 mg Allergies Allergies Allergy/AdvReac Type Severity Reaction Status Date / Time quetiapine [From Seroquel] Allergy Hallucinati Verified 06/15/24 16:55 ons haloperidol [From Haldol] AdvReac Hallucinati Verified 06/15/24 16:55 ons Assessment & Plan Assessment & Plan (1) Schizoaffective disorder: Status: Chronic Code(s): F25.9 - Schizoaffective disorder, unspecified (2) Chronic post-traumatic stress disorder (PTSD): Status: Acute Code(s): F43.12 - Post-traumatic stress disorder, chronic (3) Cocaine use disorder: Status: Acute Code(s): F14.10 - Cocaine abuse, uncomplicated Plan Patient is a 43 year old female with hx of schizoaffective d/o, PTSD and cocaine use d/o who self presented to [facility] d/t suicidal ideation with plan to stab herself or jump out of a car secondary to increased auditory hallucinations. Plan: CV 15 minute safety checks Continue home medications Start: Baclofen 10mg PO TID referral to [facility] referral for outpatient therapist encourage groups discharge planning 06/17: Keeping to self. Laying in bed most of shift. no groups. Pt continues to report feeling depressed and anxious ; pt stated, I'm still feeling suicidal but don't have a plan. I'm having voices too and seeing things . Pt encouraged to attend groups. pt denies HI. Pt requesting to speak with social work regarding CSS; rn social work, Myriam, notified. 06/18: Pt continues to report feeling depressed and anxious ; Pt stated, I'm starting to feel a little better . She reports no longer having auditory or visual hallucinations. Pt hopes to get into [facility] or the [facility]. Patient denies SI/HI. She reports sleeping well. Continue current tx plan. 06/19: continue current tx plan. pt requested to be restarted on wellbutrin to assist in smoking cessation. start: wellbutrin 75mg PO daily 06/20 continue same treatment Reason for continued inpatient stay Substantial Risk for: inability to function, rapid decompensation and med/psych decompensation Time Spent With Patient Time: Total time managing care of this patient today __20__ minutes.
[2024-06-20 20:00] VITALS: BP 113/63; PULSE 83; RESP 16; TEMP 37.1; O2SAT 98
[2024-06-20] MEDS: traZODone HCL 50 MG TABLET PO (21:32)
[2024-06-20] MEDS: Divalproex Sodium ER 500 MG TAB.ER.24H 1000 MG PO (21:32)
[2024-06-20] MEDS: risperiDONE 2 MG TABLET 4 MG PO (21:32)
[2024-06-20] MEDS: hydrOXYzine HCL 25 MG TABLET PO (21:32)
[2024-06-21 08:00] VITALS: BP 109/65; PULSE 67; RESP 16; TEMP 36.4; O2SAT 99
[2024-06-21] MEDS: Baclofen 10 MG TABLET PO ×3 (08:52→20:13)
[2024-06-21] MEDS: buPROPion HCL 75 MG TABLET PO (08:52)
[2024-06-21] MEDS: risperiDONE 2 MG TABLET PO (08:52)
[2024-06-21] MEDS: Nicotine 21 MG PATCH.TD24 TRANSDERMA (08:53)
--- NOTE | 2024-06-21 12:36 | P.PNPSI_ITS ---
Subjective Subjective Date of Service: 06/21/24 Reason For Visit: crisis Subjective Notes: Conditional Voluntary Interim History: The nursing staff reported the patient had been pleasant, cooperative less irritable with a brighter affect very polite. She slept well last night. On interview the patient denies new symptoms, listening to her music. Content with current treatment. Mental Status Exam Mental Status Exam Patient Appearance: Appropriate Patient Orientation: Person and Situation Level of Consciousness: Awake and Appropriate Patient Behavior: Appropriate Mood Description: Calm Affect Description: Constricted Patient Cognition Impaired: Yes Ability to Follow Directions: Good Speech Pattern: Clear Hallucinations: None Delusions: Not Present Thought Process: Distracted and Slowed Thinking Thought Content: positive for [place] and positive for Circumstantial Judgement: Fair Diagnostics Vital Signs (24Hr): Vital Signs - 24 hr 06/20/24 20:00 06/21/24 08:00 Temperature 98.7 F 97.6 F Pulse Rate 83 67 Respiratory Rate 16 16 Blood Pressure 113/63 109/65 Pulse Oximetry 98 99 Oxygen Delivery Method Room Air Room Air BMI result Body Mass Index 22.2 Labs 06/15/24 17:37 06/17/24 08:16 Labs: Laboratory Results - last 48 hr 06/19/24 06/19/24 14:55 14:56 Total Bilirubin 0.1 Direct Bilirubin < 0.2 AST 14 ALT 12 Alkaline Phosphatase 56 Ammonia 41 Total Protein 8.1 H Albumin 4.5 Valproic Acid 73.9 Medications Medications Current Medications Acetaminophen (Acetaminophen 325 Mg Tablet) 650 mg PO Q6H PRN PRN Reason: Headache/Pain Mild Scale (1-3) Al Hydroxide/Mg Hydroxide (Magnesium Hydrox/Alum Hydrox 30 Ml Oral.Susp) 30 ml PO Q6H PRN PRN Reason: Heartburn/Nausea Baclofen (Baclofen 10 Mg Tablet) 10 mg PO TID [facility] Last Admin: 06/21/24 08:52 Dose: 10 mg Bupropion HCl (Bupropion Hcl 75 Mg Tablet) 75 mg PO DAILY [facility] Last Admin: 06/21/24 08:52 Dose: 75 mg Divalproex Sodium (Divalproex Sodium Er 500 Mg Tab.Er.24h) 1,000 mg PO BEDTIME [facility] Last Admin: 06/20/24 21:32 Dose: 1,000 mg Hydroxyzine HCl (Hydroxyzine Hcl 25 Mg Tablet) 25 mg PO Q6H PRN PRN Reason: Anxiety Last Admin: 06/20/24 21:32 Dose: 25 mg Magnesium Hydroxide (Milk Of Magnesia 30 Ml Oral.Susp) 30 ml PO DAILY PRN PRN Reason: Constipation Nicotine (Nicotine 21 Mg Patch.Td24) 21 mg TRANSDERMA DAILY [facility] Last Admin: 06/21/24 08:53 Dose: 21 mg Nicotine Polacrilex (Nicotine Polacrilex 2 Mg Gum) 4 mg BUCCAL Q2H PRN PRN Reason: Nicotine Cravings Olanzapine (Olanzapine 5 Mg Tablet) 5 mg PO Q4H PRN PRN Reason: agitation Last Admin: 06/19/24 20:58 Dose: 5 mg Risperidone (Risperidone 2 Mg Tablet) 4 mg PO BEDTIME [facility] Last Admin: 06/20/24 21:32 Dose: 4 mg Risperidone (Risperidone 2 Mg Tablet) 2 mg PO DAILY [facility] Last Admin: 06/21/24 08:52 Dose: 2 mg Trazodone HCl (Trazodone Hcl 50 Mg Tablet) 50 mg PO BEDTIME MRX1 PRN PRN Reason: Insomnia Last Admin: 06/20/24 21:32 Dose: 50 mg Allergies Allergies Allergy/AdvReac Type Severity Reaction Status Date / Time quetiapine [From Seroquel] Allergy Hallucinati Verified 06/15/24 16:55 ons haloperidol [From Haldol] AdvReac Hallucinati Verified 06/15/24 16:55 ons Assessment & Plan Assessment & Plan (1) Schizoaffective disorder: Status: Chronic Code(s): F25.9 - Schizoaffective disorder, unspecified (2) Chronic post-traumatic stress disorder (PTSD): Status: Acute Code(s): F43.12 - Post-traumatic stress disorder, chronic (3) Cocaine use disorder: Status: Acute Code(s): F14.10 - Cocaine abuse, uncomplicated Plan Patient is a 43 year old female with hx of schizoaffective d/o, PTSD and cocaine use d/o who self presented to [facility] d/t suicidal ideation with plan to stab herself or jump out of a car secondary to increased auditory hallucinations. Plan: CV 15 minute safety checks Continue home medications Start: Baclofen 10mg PO TID referral to [facility] referral for outpatient therapist encourage groups discharge planning 06/17: Keeping to self. Laying in bed most of shift. no groups. Pt continues to report feeling depressed and anxious ; pt stated, I'm still feeling suicidal but don't have a plan. I'm having voices too and seeing things . Pt encouraged to attend groups. pt denies HI. Pt requesting to speak with social work regarding CSS; director social welfare, Myriam, notified. 06/18: Pt continues to report feeling depressed and anxious ; Pt stated, I'm starting to feel a little better . She reports no longer having auditory or visual hallucinations. Pt hopes to get into [facility] or the [facility]. Patient denies SI/HI. She reports sleeping well. Continue current tx plan. 06/19: continue current tx plan. pt requested to be restarted on wellbutrin to assist in smoking cessation. start: wellbutrin 75mg PO daily 06/20 continue same treatment 06/21 continue same treatment Reason for continued inpatient stay Substantial Risk for: inability to function, rapid decompensation and med/psych decompensation Time Spent With Patient Time: Total time managing care of this patient today __20__ minutes.
[2024-06-21] MEDS: OLANZapine 5 MG TABLET PO (19:42)
[2024-06-21 20:00] VITALS: BP 116/57; PULSE 82; RESP 18; TEMP 36.3; O2SAT 94
[2024-06-21] MEDS: traZODone HCL 50 MG TABLET PO ×2 (20:12→23:05)
[2024-06-21] MEDS: hydrOXYzine HCL 25 MG TABLET PO (20:12)
[2024-06-21] MEDS: Divalproex Sodium ER 500 MG TAB.ER.24H 1000 MG PO (20:13)
[2024-06-21] MEDS: risperiDONE 2 MG TABLET 4 MG PO (20:13)
[2024-06-22 08:00] VITALS: BP 116/67; PULSE 66; RESP 16; TEMP 36.8; O2SAT 98
[2024-06-22] MEDS: risperiDONE 2 MG TABLET PO (09:27)
[2024-06-22] MEDS: Baclofen 10 MG TABLET PO ×3 (09:27→20:36)
[2024-06-22] MEDS: buPROPion HCL 75 MG TABLET PO (09:27)
[2024-06-22] MEDS: Nicotine 21 MG PATCH.TD24 TRANSDERMA (09:28)
--- NOTE | 2024-06-22 09:41 | P.PNPSI_ITS ---
Subjective Subjective Date of Service: 06/22/24 Reason For Visit: crisis Subjective Notes: Conditional Voluntary Interim History: Reviewed with Dr. Perez. Lying in bed. keeping to self. Patient reports sleeping well. Continues to report feeling depressed. Patient reports she would like to speak to social human services assistants regarding various respite referrals. Patient denies SI/HI/VH/AH. Patient encouraged to attend groups. Medication Compliance: Yes Side effects from medications: No Attending Groups: No Review of Systems Constitutional: Reports as per HPI Eyes: Reports as per HPI Reports as per HPI Cardiovascular: Reports as per HPI Respiratory: Reports as per HPI Gastrointestinal: Reports as per HPI Musculoskeletal: Reports as per HPI Skin/Breast: Reports as per HPI Reports as per HPI Psychiatric: Reports as per HPI Endocrine: Reports as per HPI Hematologic/Lymphatic: Reports as per HPI Allergic/Immunologic: Reports as per HPI Mental Status Exam Mental Status Exam Narrative: Pt is alert and oriented; behavior is cooperative and calm; dressed in casual attire; mood is described as depressed ; eye contact appropriate; Speech is normal rate, volume and not pressured; thought process is organized and goal directed; Thought content is on tx; denies SI/HI/AH/VH. Diagnostics Vital Signs (24Hr): Vital Signs - 24 hr 06/21/24 20:00 06/22/24 08:00 Temperature 97.4 F 98.2 F Pulse Rate 82 66 Respiratory Rate 18 16 Blood Pressure 116/57 L 116/67 Pulse Oximetry 94 98 Oxygen Delivery Method Room Air Room Air BMI result Body Mass Index 22.2 Labs 06/15/24 17:37 06/17/24 08:16 Medications Medications Current Medications Acetaminophen (Acetaminophen 325 Mg Tablet) 650 mg PO Q6H PRN PRN Reason: Headache/Pain Mild Scale (1-3) Al Hydroxide/Mg Hydroxide (Magnesium Hydrox/Alum Hydrox 30 Ml Oral.Susp) 30 ml PO Q6H PRN PRN Reason: Heartburn/Nausea Baclofen (Baclofen 10 Mg Tablet) 10 mg PO TID [facility] Last Admin: 06/22/24 09:27 Dose: 10 mg Bupropion HCl (Bupropion Hcl 75 Mg Tablet) 75 mg PO DAILY [facility] Last Admin: 06/22/24 09:27 Dose: 75 mg Divalproex Sodium (Divalproex Sodium Er 500 Mg Tab.Er.24h) 1,000 mg PO BEDTIME [facility] Last Admin: 06/21/24 20:13 Dose: 1,000 mg Fluticasone Propionate (Fluticasone Propionate Nasal 16 Gm [place]) 1 spray NOSTRIL-B BID PRN PRN Reason: Congestion Hydroxyzine HCl (Hydroxyzine Hcl 25 Mg Tablet) 25 mg PO Q6H PRN PRN Reason: Anxiety Last Admin: 06/21/24 20:12 Dose: 25 mg Magnesium Hydroxide (Milk Of Magnesia 30 Ml Oral.Susp) 30 ml PO DAILY PRN PRN Reason: Constipation Nicotine (Nicotine 21 Mg Patch.Td24) 21 mg TRANSDERMA DAILY [facility] Last Admin: 06/22/24 09:28 Dose: 21 mg Nicotine Polacrilex (Nicotine Polacrilex 2 Mg Gum) 4 mg BUCCAL Q2H PRN PRN Reason: Nicotine Cravings Olanzapine (Olanzapine 5 Mg Tablet) 5 mg PO Q4H PRN PRN Reason: agitation Last Admin: 06/21/24 19:42 Dose: 5 mg Risperidone (Risperidone 2 Mg Tablet) 4 mg PO BEDTIME [facility] Last Admin: 06/21/24 20:13 Dose: 4 mg Risperidone (Risperidone 2 Mg Tablet) 2 mg PO DAILY [facility] Last Admin: 06/22/24 09:27 Dose: 2 mg Trazodone HCl (Trazodone Hcl 50 Mg Tablet) 50 mg PO BEDTIME MRX1 PRN PRN Reason: Insomnia Last Admin: 06/21/24 23:05 Dose: 50 mg Allergies Allergies Allergy/AdvReac Type Severity Reaction Status Date / Time quetiapine [From Seroquel] Allergy Hallucinati Verified 06/15/24 16:55 ons haloperidol [From Haldol] AdvReac Hallucinati Verified 06/15/24 16:55 ons Assessment & Plan Assessment & Plan (1) Schizoaffective disorder: Status: Chronic Code(s): F25.9 - Schizoaffective disorder, unspecified (2) Chronic post-traumatic stress disorder (PTSD): Status: Acute Code(s): F43.12 - Post-traumatic stress disorder, chronic (3) Cocaine use disorder: Status: Acute Code(s): F14.10 - Cocaine abuse, uncomplicated Plan Patient is a 43 year old female with hx of schizoaffective d/o, PTSD and cocaine use d/o who self presented to [facility] d/t suicidal ideation with plan to stab herself or jump out of a car secondary to increased auditory hallucinations. Plan: CV 15 minute safety checks Continue home medications Start: Baclofen 10mg PO TID referral to [facility] referral for outpatient therapist encourage groups discharge planning 06/17: Keeping to self. Laying in bed most of shift. no groups. Pt continues to report feeling depressed and anxious ; pt stated, I'm still feeling suicidal but don't have a plan. I'm having voices too and seeing things . Pt encouraged to attend groups. pt denies HI. Pt requesting to speak with social work regarding CSS; social human services assistants, Myriam, notified. 06/18: Pt continues to report feeling depressed and anxious ; Pt stated, I'm starting to feel a little better . She reports no longer having auditory or visual hallucinations. Pt hopes to get into [facility] or the [facility]. Patient denies SI/HI. She reports sleeping well. Continue current tx plan. 06/19: continue current tx plan. pt requested to be restarted on wellbutrin to assist in smoking cessation. start: wellbutrin 75mg PO daily 06/20 continue same treatment 06/21 continue same treatment 06/22: Lying in bed. keeping to self. Patient reports sleeping well. Continues to report feeling depressed. Patient reports she would like to speak to social human services assistants regarding various respite referrals. Patient denies SI/HI/VH/AH. Patient encouraged to attend groups. Continue current treatment plan. Patient hoping to obtain bed at respite soon. Patient educated on: diagnosis, medication risk/benefits, substance abuse and therapeutic strategies Informed Consent: understands Reason for continued inpatient stay Substantial Risk for: med/psych decompensation Time Spent With Patient Time: Total time managing care of this patient today _20___ minutes.
[2024-06-22 20:00] VITALS: RESP 16
[2024-06-22] MEDS: risperiDONE 2 MG TABLET 4 MG PO (20:36)
[2024-06-22] MEDS: hydrOXYzine HCL 25 MG TABLET PO (20:36)
[2024-06-22] MEDS: Divalproex Sodium ER 500 MG TAB.ER.24H 1000 MG PO (20:36)
[2024-06-22] MEDS: traZODone HCL 50 MG TABLET PO (20:37)
[2024-06-23 07:58] VITALS: BP 97/57; PULSE 63; RESP 16; TEMP 37; O2SAT 96
[2024-06-23] MEDS: Baclofen 10 MG TABLET PO ×3 (08:55→20:12)
[2024-06-23] MEDS: buPROPion HCL 75 MG TABLET PO (08:55)
[2024-06-23] MEDS: risperiDONE 2 MG TABLET PO (08:55)
[2024-06-23] MEDS: Nicotine 21 MG PATCH.TD24 TRANSDERMA (08:56)
[2024-06-23] MEDS: OLANZapine 5 MG TABLET PO ×2 (12:20→20:12)
--- NOTE | 2024-06-23 15:00 | PM.PSYDC ---
DS: Providers Provider Date of Service: 06/23/24 Date of admission: 06/16/24 11:56 Date of discharge: 06/24/24 Primary care physician: Unknown Physician Admitting clinician: Renu Tamayo Attending physician on admission: Pierre Perez Attending physician on discharge: Pierre Perez Discharging clinician: Renu Tamayo DS: Diagnosis Discharge Diagnosis (1) Schizoaffective disorder: Status: Chronic (2) Chronic post-traumatic stress disorder (PTSD): Status: Acute (3) Cocaine use disorder: Status: Acute DS: Medications Discharge Medications Home Medications: Previous Rx's ?Medication ?Instructions ?Recorded baclofen 10 mg tablet 10 mg PO TID 30 days #90 tabs 06/23/24 bupropion HCl 75 mg tablet 75 mg PO DAILY 30 days #30 tabs 06/23/24 divalproex 500 mg tablet,extended 1,000 mg (2 x 500 mg) PO BEDTIME 06/23/24 release 24 hr 30 days #60 tabs hydroxyzine HCl 25 mg tablet 25 mg PO BID PRN Anxiety 30 days 06/23/24 #60 tabs olanzapine 5 mg tablet 5 mg PO BID PRN agitation 30 days 06/23/24 #60 tabs risperidone 2 mg tablet 2 mg PO DAILY 30 days #30 tabs 06/23/24 risperidone 4 mg tablet (Risperdal) 4 mg PO BEDTIME 30 days #30 tabs 06/23/24 trazodone 50 mg tablet 50 mg PO BEDTIME 30 days #30 tabs 06/23/24 Mental Status Exam Mental Status Exam Narrative: Pt is alert and oriented; behavior is cooperative and calm; dressed in casual attire; mood is described as good ; eye contact appropriate; Speech is normal rate, volume and not pressured; thought process is organized and goal directed; Thought content is on tx; denies SI/HI/AH/VH. Data Data Completed and Pending Completed studies during hospitalization [Text1]: 06/23/24 15:11 Total Bilirubin 0.1 Direct Bilirubin < 0.2 AST 15 ALT 10 Alkaline Phosphatase 49 Ammonia Cancelled Total Protein 7.5 Albumin 4.0 Valproic Acid 67.0 DS: Summary Hospital Course Hospital Course: Patient is a 43 year old female with hx of schizoaffective d/o, PTSD and cocaine use d/o who self presented to [facility] d/t suicidal ideation with plan to stab herself or jump out of a car secondary to increased auditory hallucinations. Per crisis report, pt has a hx of medication noncompliance and crack use. Pt was last admitted to on 04/25/24 with similar presentation. Pt reported auditory hallucinations threatening to harm her. denies any sleep disturbance. Pt has an intake with [facility] for therapy on 05/13/24 which she did not show for; pt also missed medication provider appointment on 06/05/24. Per patient's step mother, pt was doing fine until 3 days ago when she left the home . During admission assessment, pt presents alert and oriented x3, calm, cooperative. Patient reports feeling anxious and depressed ; pt stated, I came to the hospital because I'm hearing voices telling me I'm dumb and that they are going to kill me. I'm also having visual hallucinations of people telling me to have a baby . Pt reports suicidal ideation to jump out of a moving car . Pt denies HI. Pt reports she has been medication compliant. She reports she has been using crack daily but is unclear of amount. UTOX positive for marijuana, cocaine, fentanyl and barbiturates. Pt stated, when I use crack, the voices get loud but when I'm clean they decrease . Pt reports she would like a referral to an outpatient therapist. She would like to go to a [facility] after discharge. Time spent discussing smoking cessation with patient: 3 to 10 minutes Status at Discharge Cognitive/behavioral status at discharge: Patient was interviewed prior to discharge and found to be fully oriented and without SI or HI. Patient has insight and demonstrates good judgment in terms of wanting to pursue treatment. Patient has a safety plan that includes presenting to the closest ER or calling 911 if feeling unsafe. Functional status at discharge: independent ambulation Overall status at discharge: patient is back to baseline Time Spent with Patient Time attestation: Total time managing care of this patient today _20___ minutes. Time spent: Less than 30 minutes Discharge Plan Discharge Anticipated Discharge Date/Time: 06/24/24 10:30 Patient Disposition: Xfer Other Discharge Diagnosis: Schizoaffective d/o, PTSD, cocaine use d/o Referrals: [facility] [Provider Group] - 06/30/24 11:00 am (Your follow up appt has been made with [facility] for 06-30-24 @ 11am. [facility] tn ) Discharge Medications: New baclofen 10 mg Tablet 10 mg PO TID 30 Days Qty: 90 0RF hydroxyzine HCl 25 mg Tablet 25 mg PO BID PRN (Reason: Anxiety) 30 Days Qty: 60 0RF divalproex 500 mg Tablet Extended Release 24 Hr 1,000 mg PO BEDTIME 30 Days Qty: 60 0RF Continued trazodone 50 mg tablet 50 mg PO BEDTIME 30 Days Qty: 30 0RF risperidone 2 mg tablet 2 mg PO DAILY 30 Days Qty: 30 0RF bupropion HCl 75 mg tablet 75 mg PO DAILY 30 Days Qty: 30 0RF Changed risperidone [Risperdal] 4 mg tablet 4 mg PO BEDTIME 30 Days Qty: 30 0RF olanzapine 5 mg tablet 5 mg PO BID PRN (Reason: agitation) 30 Days Qty: 60 0RF Discontinued baclofen 10 mg tablet 10 mg PO BID buspirone 10 mg tablet 10 mg PO TID divalproex 500 mg tablet extended release 24 hr 1,000 mg PO BEDTIME 30 Days Qty: 60 1RF Discharge Orders: Discharge Order (Routine); Ordered 06/24/24 Ordered By: Renu Tamayo Diet: Regular diet Activity on Discharge: As tolerated Stand Alone Forms: Patient Portal Discharge page, Community Support Print Language: Japanese Care Plan Goals: Maintain mood and safe behaviors Take medications as prescribed Continue to pursue sobriety Practice coping skills Continue with outpatient providers and reach out to them as needed Health Concerns: Mood stability and behaviors Sobriety Plan of Treatment: Follow up with your PCP, psychiatric provider and other outpatient providers regarding above concerns Take medications as prescribed Assessment: Patient was interviewed prior to discharge and found to be fully oriented and without SI or HI. Patient has insight and demonstrates good judgment in terms of wanting to pursue treatment. Patient has a safety plan that includes presenting to the closest ER or calling 911 if feeling unsafe. Discharge Date/Time: 06/24/24 15:36
--- NOTE | 2024-06-23 15:59 | P.PNPSI_ITS ---
Subjective Subjective Date of Service: 06/23/24 Reason For Visit: crisis Subjective Notes: Conditional Voluntary Interim History: Reviewed with Dr. Crockett. Active on unit, social with peers. Pt reports feeling better today; pt reports she is looking forward to leaving and going to respite tomorrow. Pt denies SI/HI/VH/AH. She reports sleeping well. Medication Compliance: Yes Side effects from medications: No Attending Groups: Yes Review of Systems Constitutional: Reports as per HPI Eyes: Reports as per HPI Reports as per HPI Cardiovascular: Reports as per HPI Respiratory: Reports as per HPI Gastrointestinal: Reports as per HPI Musculoskeletal: Reports as per HPI Skin/Breast: Reports as per HPI Reports as per HPI Psychiatric: Reports as per HPI Endocrine: Reports as per HPI Hematologic/Lymphatic: Reports as per HPI Allergic/Immunologic: Reports as per HPI Mental Status Exam Mental Status Exam Narrative: Pt is alert and oriented; behavior is cooperative and calm; dressed in casual attire; mood is described as good ; eye contact appropriate; Speech is normal rate, volume and not pressured; thought process is organized and goal directed; Thought content is on tx; denies SI/HI/AH/VH. Diagnostics Vital Signs (24Hr): Vital Signs - 24 hr 06/22/24 20:00 06/23/24 07:58 Temperature 98.6 F Pulse Rate 63 Respiratory Rate 16 16 Blood Pressure 97/57 L Pulse Oximetry 96 Oxygen Delivery Method Room Air BMI result Body Mass Index 22.2 Labs 06/15/24 17:37 06/17/24 08:16 Medications Medications Current Medications Acetaminophen (Acetaminophen 325 Mg Tablet) 650 mg PO Q6H PRN PRN Reason: Headache/Pain Mild Scale (1-3) Al Hydroxide/Mg Hydroxide (Magnesium Hydrox/Alum Hydrox 30 Ml Oral.Susp) 30 ml PO Q6H PRN PRN Reason: Heartburn/Nausea Baclofen (Baclofen 10 Mg Tablet) 10 mg PO TID [facility] Last Admin: 06/23/24 15:13 Dose: 10 mg Bupropion HCl (Bupropion Hcl 75 Mg Tablet) 75 mg PO DAILY [facility] Last Admin: 06/23/24 08:55 Dose: 75 mg Divalproex Sodium (Divalproex Sodium Er 500 Mg Tab.Er.24h) 1,000 mg PO BEDTIME [facility] Last Admin: 06/22/24 20:36 Dose: 1,000 mg Fluticasone Propionate (Fluticasone Propionate Nasal 16 Gm [place]) 1 spray NOSTRIL-B BID PRN PRN Reason: Congestion Hydroxyzine HCl (Hydroxyzine Hcl 25 Mg Tablet) 25 mg PO Q6H PRN PRN Reason: Anxiety Last Admin: 06/22/24 20:36 Dose: 25 mg Magnesium Hydroxide (Milk Of Magnesia 30 Ml Oral.Susp) 30 ml PO DAILY PRN PRN Reason: Constipation Naloxone HCl (Naloxone Hcl Nasal Take Home 4 Mg [place]) 8 mg NOSTRILALT ONCE ONE Stop: 06/24/24 08:01 Nicotine (Nicotine 21 Mg Patch.Td24) 21 mg TRANSDERMA DAILY [facility] Last Admin: 06/23/24 08:56 Dose: 21 mg Nicotine Polacrilex (Nicotine Polacrilex 2 Mg Gum) 4 mg BUCCAL Q2H PRN PRN Reason: Nicotine Cravings Olanzapine (Olanzapine 5 Mg Tablet) 5 mg PO Q4H PRN PRN Reason: agitation Last Admin: 06/23/24 12:20 Dose: 5 mg Risperidone (Risperidone 2 Mg Tablet) 4 mg PO BEDTIME [facility] Last Admin: 06/22/24 20:36 Dose: 4 mg Risperidone (Risperidone 2 Mg Tablet) 2 mg PO DAILY [facility] Last Admin: 06/23/24 08:55 Dose: 2 mg Trazodone HCl (Trazodone Hcl 50 Mg Tablet) 50 mg PO BEDTIME MRX1 PRN PRN Reason: Insomnia Last Admin: 06/22/24 20:37 Dose: 50 mg Allergies Allergies Allergy/AdvReac Type Severity Reaction Status Date / Time quetiapine [From Seroquel] Allergy Hallucinati Verified 06/15/24 16:55 ons haloperidol [From Haldol] AdvReac Hallucinati Verified 06/15/24 16:55 ons Assessment & Plan Assessment & Plan (1) Schizoaffective disorder: Status: Chronic Code(s): F25.9 - Schizoaffective disorder, unspecified (2) Chronic post-traumatic stress disorder (PTSD): Status: Acute Code(s): F43.12 - Post-traumatic stress disorder, chronic (3) Cocaine use disorder: Status: Acute Code(s): F14.10 - Cocaine abuse, uncomplicated Plan Patient is a 43 year old female with hx of schizoaffective d/o, PTSD and cocaine use d/o who self presented to [facility] ER d/t suicidal ideation with plan to stab herself or jump out of a car secondary to increased auditory hallucinations. Plan: CV 15 minute safety checks Continue home medications Start: Baclofen 10mg PO TID referral to CSS referral for outpatient therapist encourage groups discharge planning 06/17: Keeping to self. Laying in bed most of shift. no groups. Pt continues to report feeling depressed and anxious ; pt stated, I'm still feeling suicidal but don't have a plan. I'm having voices too and seeing things . Pt encouraged to attend groups. pt denies HI. Pt requesting to speak with social work regarding CSS; family welfare social work professor, Myriam, notified. 06/18: Pt continues to report feeling depressed and anxious ; Pt stated, I'm starting to feel a little better . She reports no longer having auditory or visual hallucinations. Pt [facility] to get into [facility] or [facility]. Patient denies SI/HI. She reports sleeping well. Continue current tx plan. 06/19: continue current tx plan. pt requested to be restarted on wellbutrin to assist in smoking cessation. start: wellbutrin 75mg PO daily 06/20 continue same treatment 06/21 continue same treatment 06/22: Lying in bed. keeping to self. Patient reports sleeping well. Continues to report feeling depressed. Patient reports she would like to speak to family welfare social work professor regarding various respite referrals. Patient denies SI/HI/VH/AH. Patient encouraged to attend groups. Continue current treatment plan. Patient hoping to obtain bed at respite soon. 06/23: Active on unit, social with peers. Pt reports feeling better today; pt reports she is looking forward to leaving and going to respite tomorrow. Pt denies SI/HI/VH/AH. She reports sleeping well. Patient educated on: diagnosis, medication risk/benefits, substance abuse and therapeutic strategies Informed Consent: understands Reason for continued inpatient stay Substantial Risk for: stable for discharge Time Spent With Patient Time: Total time managing care of this patient today _20___ minutes.
[2024-06-23 16:01] LABS: Alanine Aminotransferase 10 U/L (0-31); Alkaline Phosphatase 49 U/L (39-117); Aspartate Amino Transferase 15 U/L (5-31); Bilirubin Direct < 0.2 mg/dL (0.0-0.5); Bilirubin Total 0.1 mg/dL (0.0-1.0); Total Protein 7.5 g/dL (6.5-8.0)
[2024-06-23 19:51] VITALS: BP 112/58; PULSE 73; RESP 16; TEMP 37.5; O2SAT 96
[2024-06-23] MEDS: traZODone HCL 50 MG TABLET PO (20:12)
[2024-06-23] MEDS: hydrOXYzine HCL 25 MG TABLET PO (20:12)
[2024-06-23] MEDS: risperiDONE 2 MG TABLET 4 MG PO (20:12)
[2024-06-23] MEDS: Divalproex Sodium ER 500 MG TAB.ER.24H 1000 MG PO (20:12)
[2024-06-24 07:40] VITALS: BP 85/45; PULSE 54; RESP 16; TEMP 36.4; O2SAT 98
[2024-06-24] MEDS: risperiDONE 2 MG TABLET PO (09:08)
[2024-06-24] MEDS: Baclofen 10 MG TABLET PO ×2 (09:08→14:47)
[2024-06-24 09:09] VITALS: BP 109/79; PULSE 61
[2024-06-24] MEDS: buPROPion HCL 75 MG TABLET PO (09:09)
[2024-06-24] MEDS: Nicotine 21 MG PATCH.TD24 TRANSDERMA (09:09)
[2024-06-24] MEDS: Naloxone HCl Nasal TAKE HOME 4 MG SPRAY 8 MG NOSTRILALT (09:10)
[2024-06-24] MEDS: OLANZapine 5 MG TABLET PO (14:57)
== END 2024-06-24 15:36 | disposition other institution (70) | DRG 885 ==
LOC: HO.ED 06-16 02:32 → HO.PADLT16 06-16 12:00
PROVIDERS: Emergency Medicine; Admitting Provider Registered Nurse; Emergency Provider Emergency Medicine Emergency Medical Services; Responsible Provider Registered Nurse; Visit Provider Psychiatry & Neurology Psychiatry
DX: F25.9 Schizoaffective disorder, unspecified (principal); R45.851 Suicidal ideations; F12.20 Cannabis dependence, uncomplicated; F43.12 Post-traumatic stress disorder, chronic; F17.210 Nicotine dependence, cigarettes, uncomplicated; Z71.6 Tobacco abuse counseling; Z79.899 Other long term (current) drug therapy
CPT/HCPCS: 36415; 80053; 80061; 80076; 80164; 80307; 81001; 81025; 82140; 85025; 93005; 99285; S9485

== ENCOUNTER → 2024-06-16 11:10 | Outpatient (BNV) | payer MEDICARE, MEDICAID, SELFPAY | PROVIDERS: Admitting Provider Registered Nurse; Emergency Provider Emergency Medicine Emergency Medical Services; Responsible Provider Registered Nurse; Visit Provider Internal Medicine Cardiovascular Disease | DX: R94.31 Abnormal electrocardiogram [ECG] [EKG] (principal) | CPT/HCPCS: 93010 ==

== ENCOUNTER → 2024-06-16 11:56 | Outpatient (BNV) | payer MEDICARE, MEDICAID, SELFPAY | PROVIDERS: Admitting Provider Registered Nurse; Emergency Provider Emergency Medicine Emergency Medical Services; Responsible Provider Registered Nurse; Visit Provider Registered Nurse | DX: F25.1 Schizoaffective disorder, depressive type (principal); F14.10 Cocaine abuse, uncomplicated; F43.12 Post-traumatic stress disorder, chronic | CPT/HCPCS: 90792; 99231; 99232; 99238 ==

== ENCOUNTER 2024-07-03 13:26 | Inpatient (IN) | payer MEDICARE, MEDICAID, SELFPAY ==
[2024-07-03 13:35] VITALS: BP 112/68; PULSE 80; RESP 16; TEMP 36.6; O2SAT 98
[2024-07-03] MEDS: Nicotine 21 MG PATCH.TD24 TRANSDERMA (14:07)
--- NOTE | 2024-07-03 14:24 | HO.PSYADMNOT ---
HPI Date of Service: 07/03/24 Chief Complaint: F20.9 ,F12.20,F14.20 Sources of Information: patient interviewed, chart reviewed and crisis/core team assessment reviewed HPI Subjective Notes: Conley Warning and Conditional Voluntary Narrative: Patient is a 43 year old female with hx of schizoaffective d/o, PTSD and cocaine use d/o who self presented to [facility] d/t suicidal and homicidal ideation secondary to increased auditory hallucinations after daily cocaine use. Per crisis report, pt has a hx of medication noncompliance and crack use. Patient was discharged from [facility] on 06/24/24 to respite. Patient reports she has been using substances which she knows leads to increased hallucinations. She reports hearing voices telling her to harm herself and her parents. Patient stated she had suicidal ideation with plan to jump off of a bridge but denied plan for homicide. Utox positive for cocaine and cannabis. During admission assessment, pt presents alert and oriented x3, calm, cooperative. Patient reports feeling anxious and depressed ; pt stated, I went to respite and only stayed there for a few days and left because I wanted to use. I went home and I did not use right away but the next thing I knew I was using. Patient reports auditory hallucinations telling her to harm herself and other people. Patient stated, that started scaring me so I told my father and he brought me to the hospital . Patient reports visual hallucinations of seeing people staring at her. She reports suicidal ideation with no plan. Patient reports she has not been medication compliant after leaving respite and has been using cocaine. Patient reports that she believe she needs to be section 35'd because she wants to stop using. Past Psychiatric History: IP: Pt reports numerous admissions. Outpatient provider through [facility]; pt does not recall name of provider. Suicide attempts: Overdose 20 years ago; other information says more recent overdose attempts were in dec 2020 and january 2019. Multiple detox admissions. Medical Evaluation Reviewed: Yes [facility] Medical History Suicidal ideation Chronic post-traumatic stress disorder (PTSD) Cannabis use disorder, moderate, dependence Cocaine use disorder Schizoaffective disorder Family History: schizophrenia autism Social History: Lives with her father and step-mother, single, 23 y/o son. she and her son are apparently estranged. Source of income is SSI, disability, food stamps. born and raised in [place], [place]. dropped out of school in 10th grade. mother in 2017. Substance History: pt reports daily crack use. unclear of amount. UTOX positive for marijuana, cocaine. Trauma History: yes Meds/Allergies Allergies Allergies Allergy/AdvReac Type Severity Reaction Status Date / Time quetiapine [From Seroquel] Allergy Hallucinati Verified 06/15/24 16:55 ons haloperidol [From Haldol] AdvReac Hallucinati Verified 06/15/24 16:55 ons Mental Status Exam Mental Status Exam Narrative: Pt is alert and oriented; behavior is cooperative, friendly and calm; dressed in casual attire; mood is described as anxious and depressed ; eye contact appropriate; Speech is normal rate, volume and not pressured; thought process is organized and goal directed; Thought content is on tx; patient reports suicidal ideation no plan. She reports auditory hallucinations that are telling her to kill herself and others. She reports visual hallucinations of people looking at her. Assessment & Plan Assessment & Plan (1) Schizoaffective disorder: Status: Chronic Code(s): F25.9 - Schizoaffective disorder, unspecified (2) Chronic post-traumatic stress disorder (PTSD): Status: Acute Code(s): F43.12 - Post-traumatic stress disorder, chronic (3) Cocaine use disorder: Status: Acute Code(s): F14.10 - Cocaine abuse, uncomplicated Plan Patient is a 43 year old female with hx of schizoaffective d/o, PTSD and cocaine use d/o who self presented to [facility] d/t suicidal and homicidal ideation secondary to increased auditory hallucinations after daily cocaine use. Plan: CV 15 minute safety checks Continue home medications File for section 35 Encourage groups Discharge planning Patient educated on: diagnosis, medication risk/benefits, substance abuse and therapeutic strategies Informed Consent: understands Reason for continued inpatient stay Substantial Risk for: harm to self and med/psych decompensation Statement Statement: I have reviewed the history and physical and performed a pertinent examination on my patient. No changes have occurred unless specified. If the History and Physical was not performed prior to admission, the Hospitalist's service will be consulted for completing the admission physical. Time Spent With Patient Time: Total time managing care of this patient today _60___ minutes.
[2024-07-03 14:52] VITALS: BMI 24.0
--- NOTE | 2024-07-03 16:07 | PC.NURSE ---
Narcisa was admitted to at 1335 from [facility] ED on a CV for treatment of Schizoaffective disorder and cocaine use disorder. She was discharged last week from [facility], went to respite. It was unclear when she left respite. She stopped taking prescribed medications and started using marijuana and crack. She had a resurgence of auditory and visual hallucinations with command content to harm herself and others. Pt denies intent to harm self or others and states she will approach staff prior to acting. Pt was A&O x4, calm and cooperative with admission process. Narcisa presented as euthymic with broad affect. She was logical stating, ?I need to get my auditory and visual hallucinations and my drug use under control. I want to go to drug treatment.?. Pt?s speech was clear and she had good eye contact. Pt reports good appetite and good sleep.? Her ability to focus is fair. She reports nasal congestion and denies other physical complaint. Pt placed on 15 minute safety checks.
--- NOTE | 2024-07-03 16:09 | P.CONHOSP_ITS ---
History of Present Illness Data of Consult Service Date: 07/03/24 Primary Care Provider: Unknown Physician HPI Reason for consult: Admission H&P Pt is a 43-year-old female with a PMH significant for?cocaine use disorder, hx of ectopic , schizoaffective disorder, PTSD, and schizoaffective disorder who is admitted to [facility] psychiatry unit for increasing depression with SI. Patient with increasing auditory hallucinations telling her to harm herself, the patient has not yet acted on these voices. Medical consult for admission H&P. ?Pt denies any significant PMH other than her ectopic . Is not on any home medications. Complains of nasal congestion for the past few months. Has taken Claritin with no relief. Reports she does not normally have seasonal allergies, though this may have happened before. Denies watery or itchy eyes. No sore throat or sinus pain. Denies fever, chills. No cough. Denies chest pain/pressure. No shortness a breath or difficulty breathing. No nausea, vomiting, abdominal pain. No changes to bowel or bladder habits. Denies headache or acute vision changes. Review of Systems Review of Systems: Nasal congestion without fever, sore throat, or cough Patient otherwise has no acute medical complaints at this time [facility] Medical History Suicidal ideation Chronic post-traumatic stress disorder (PTSD) Cannabis use disorder, moderate, dependence Cocaine use disorder Schizoaffective disorder Social History Household Members: Family Household Members Other:: father Housing: House Housing Other:: [address] [place] [address] Do you presently have visiting nurse or other home services: No Alcohol intake: current Alcohol intake frequency: a few times a week Comment: no additional interventions needed Patient Tobacco Use Status: Current everyday Tobacco user Tobacco use type: Cigarette Cigarette Packs Per Day: 1 Cigarettes Per Day: 2 Years Smoked: 5 Smoked in Last 30 Days: Yes e-Cigarette/Vaping Use: Never Used Patient Interested in Nicotine Replacement: Yes Patient Given Instructions on How to Stop Smoking: No Second Hand Smoke Exposure: No Use of substances other than those prescribed or required for medical reasons: Yes Substance Use Type: Crack/Cocaine and Marijuana Substance Use Frequency: Weekly Last Used Substance: Just Prior to Admission Currently Displaying Signs/Symptoms of Drug Intoxication Withdrawal: No Any prior treatment program specific to substance use: No Have you been hit, kicked, punched, or otherwise hurt by someone within the past year? If so, by whom?: No Do you feel safe in your current relationship?: No Current Relationship Is there a partner from a previous relationship who is making you feel unsafe now?: No Are you made to feel afraid or neglected: No Advance Directives: No Advance Directives Information Provided: Yes Do you have a plan to hurt others: No Plan Recently lost weight without trying: No Eating poorly because of decreased appetite: No Nutrition Risks: No Nutritional Risk Patient : No : No Poor oral hygiene: No service: No Sexual orientation: Did not discuss Meds Allergies Allergy/AdvReac Type Severity Reaction Status Date / Time quetiapine [From Seroquel] Allergy Hallucinati Verified 06/15/24 16:55 ons haloperidol [From Haldol] AdvReac Hallucinati Verified 06/15/24 16:55 ons Active Medications: Current Medications Acetaminophen (Acetaminophen 325 Mg Tablet) 650 mg PO Q6H PRN PRN Reason: Headache/Pain Mild Scale (1-3) Al Hydroxide/Mg Hydroxide (Magnesium Hydrox/Alum Hydrox 30 Ml Oral.Susp) 30 ml PO Q6H PRN PRN Reason: Heartburn/Nausea Hydroxyzine HCl (Hydroxyzine Hcl 25 Mg Tablet) 25 mg PO Q6H PRN PRN Reason: Anxiety Magnesium Hydroxide (Milk Of Magnesia 30 Ml Oral.Susp) 30 ml PO DAILY PRN PRN Reason: Constipation Nicotine (Nicotine 21 Mg Patch.Td24) 21 mg TRANSDERMA DAILY [facility] Last Admin: 07/03/24 14:07 Dose: 21 mg Nicotine Polacrilex (Nicotine Polacrilex 2 Mg Gum) 4 mg BUCCAL Q2H PRN PRN Reason: Nicotine Cravings Trazodone HCl (Trazodone Hcl 50 Mg Tablet) 50 mg PO BEDTIME MRX1 PRN PRN Reason: Insomnia Physical Exam Vital Signs and Narrative: Vital Signs: Last Vital Signs Temp 97.8 F 07/03/24 13:35 Pulse 80 07/03/24 13:35 Resp 16 07/03/24 13:35 BP 112/68 07/03/24 13:35 Pulse Ox 98 07/03/24 13:35 O2 Del Method Room Air 07/03/24 13:35 BMI result Body Mass Index 24.0 General: AOx3, no acute distress Resp: CTA bilaterally CVS: S1, S2, RRR GI: +BS, NT, no distention Skin: Warm, dry Neuro: Cranial nerves II-XII grossly intact bilaterally. Motor grossly intact bilaterally Extremities: No edema Psych: Appropriate affect Assessment and Plan (1) Medical clearance for psychiatric admission: Status: Acute Plan Pt is a 43-year-old female with a PMH significant for?cocaine use disorder, hx of ectopic , schizoaffective disorder, PTSD, and schizoaffective disorder who is admitted to [facility] unit for increasing depression with SI. Patient with increasing auditory hallucinations telling her to harm herself, the patient has not yet acted on these voices. Medical consult for admission H&P. Mood disorder Plan as per Psychiatry Nasal congestion Likely secondary to seasonal allergies Patient without fever, sore throat, or sinus pain Patient has taken Claritin to no effect Continue hydroxyzine p.r.n. Afrin 2 sprays in each nostril b.i.d. p.r.n. Use Afrin only for a total of 3 days concurrently or 6 total doses if not on concurrent days Patient otherwise has no acute medical complaints known chronic medical conditions. Will sign off for now. Thank you for allowing us to participate in the care of this patient. Please re-consult if any acute issue or need arises.
[2024-07-03 20:00] VITALS: BP 110/59; PULSE 76; RESP 16; TEMP 36.4; O2SAT 97
[2024-07-03] MEDS: Baclofen 10 MG TABLET PO (20:13)
[2024-07-03] MEDS: traZODone HCL 50 MG TABLET PO (20:14)
[2024-07-03] MEDS: hydrOXYzine HCL 25 MG TABLET PO (20:14)
[2024-07-03] MEDS: Divalproex Sodium ER 500 MG TAB.ER.24H 1000 MG PO (20:14)
[2024-07-03] MEDS: risperiDONE 2 MG TABLET 4 MG PO (20:14)
--- NOTE | 2024-07-03 20:23 | PM.EVENT ---
Event Note Date of Service: 07/03/24 Event Note: Addiction consult placed for patient with cocaine use and +AUDIT screen Patient to be seen on Saturday by lower in supervisor Time Spent With Patient Time: Total time managing care of this patient today ____ minutes.
[2024-07-03] MEDS: Oxymetazoline HCl 0.05 % Nasal 15 ML SPRAY 2 SPRAY NOSTRIL-B (20:29)
[2024-07-04 08:00] VITALS: BP 108/67; PULSE 81; RESP 16; TEMP 36.5; O2SAT 99
--- NOTE | 2024-07-04 08:28 | HO.PSYCHPN ---
Subjective Subjective Date of Service: 07/04/24 Reason For Visit: F20.9 ,F12.20,F14.20 Subjective Notes: Conditional Voluntary Healthcare Proxy: No Guardianship: No Medical Problems Affecting Mental Status: No Interim History: 43 yo AAF with substacne use and ptsd, affectingmood- asks about gabapentin use after denying any current issues- lying in bed Medication Compliance: Yes Side effects from medications: No Attending Groups: Intermittent Review of Systems Acute medical concerns: No Medical Review of Systems: unchanged Mental Status Exam Mental Status Exam Patient Appearance: Unkempt Patient Orientation: Person, Place, Time and Situation Level of Consciousness: Awake Patient Behavior: Appropriate Mood Description: Constricted and Apprehensive Affect Description: Blunted Patient Cognition Impaired: No Ability to Follow Directions: Fair Speech Pattern: Clear and Impoverished Hallucinations: None Delusions: Not Present Thought Process: Intact and Goal Oriented Depressive Symptoms: Isolating-Friends/Family Judgement: Fair Diagnostics Vital Signs (24Hr): Vital Signs - 24 hr 07/03/24 13:35 07/03/24 20:00 07/04/24 08:00 Temperature 97.8 F 97.6 F 97.7 F Pulse Rate 80 76 81 Respiratory Rate 16 16 16 Blood Pressure 112/68 110/59 L 108/67 Pulse Oximetry 98 97 99 Oxygen Delivery Method Room Air Room Air Room Air BMI result Body Mass Index 24.0 Labs 07/04/24 10:24 Medications Medications Current Medications Acetaminophen (Acetaminophen 325 Mg Tablet) 650 mg PO Q6H PRN PRN Reason: Headache/Pain Mild Scale (1-3) Al Hydroxide/Mg Hydroxide (Magnesium Hydrox/Alum Hydrox 30 Ml Oral.Susp) 30 ml PO Q6H PRN PRN Reason: Heartburn/Nausea Baclofen (Baclofen 10 Mg Tablet) 10 mg PO TID [facility] Last Admin: 07/03/24 20:13 Dose: 10 mg Bupropion HCl (Bupropion Hcl 75 Mg Tablet) 75 mg PO DAILY [facility] Divalproex Sodium (Divalproex Sodium Er 500 Mg Tab.Er.24h) 1,000 mg PO BEDTIME [facility] Last Admin: 07/03/24 20:14 Dose: 1,000 mg Hydroxyzine HCl (Hydroxyzine Hcl 25 Mg Tablet) 25 mg PO Q6H PRN PRN Reason: Anxiety Last Admin: 07/03/24 20:14 Dose: 25 mg Magnesium Hydroxide (Milk Of Magnesia 30 Ml Oral.Susp) 30 ml PO DAILY PRN PRN Reason: Constipation Nicotine (Nicotine 21 Mg Patch.Td24) 21 mg TRANSDERMA DAILY [facility] Last Admin: 07/03/24 14:07 Dose: 21 mg Nicotine Polacrilex (Nicotine Polacrilex 2 Mg Gum) 4 mg BUCCAL Q2H PRN PRN Reason: Nicotine Cravings Olanzapine (Olanzapine 5 Mg Tablet) 5 mg PO BID PRN PRN Reason: agitation Oxymetazoline HCl (Oxymetazoline Hcl 0.05 % Nasal 15 Ml [place]) 2 spray NOSTRIL-B BID PRN PRN Reason: Nasal Congestion Last Admin: 07/03/24 20:29 Dose: 2 spray Risperidone (Risperidone 2 Mg Tablet) 4 mg PO BEDTIME [facility] Last Admin: 07/03/24 20:14 Dose: 4 mg Risperidone (Risperidone 2 Mg Tablet) 2 mg PO DAILY [facility] Trazodone HCl (Trazodone Hcl 50 Mg Tablet) 50 mg PO BEDTIME MRX1 PRN PRN Reason: Insomnia Last Admin: 07/03/24 20:14 Dose: 50 mg Allergies Allergies Allergy/AdvReac Type Severity Reaction Status Date / Time quetiapine [From Seroquel] Allergy Hallucinati Verified 06/15/24 16:55 ons haloperidol [From Haldol] AdvReac Hallucinati Verified 06/15/24 16:55 ons Assessment & Plan Assessment & Plan (1) Medical clearance for psychiatric admission: Status: Acute Code(s): Z00.8 - Encounter for other general examination (2) Substance induced mood disorder: Status: Acute Code(s): F19.94 - Other psychoactive substance use, unspecified with psychoactive substance-induced mood disorder Assessment and Plan: 07/04 pt agrees with plan for sec 35 to decrease exposure risk to substances- unclear how or if gabapentin would work already on depakote and 2 atypical antipsychotics (3) Chronic post-traumatic stress disorder (PTSD): Status: Acute Code(s): F43.12 - Post-traumatic stress disorder, chronic Plan Pt is a 43-year-old female with a PMH significant for?cocaine use disorder, hx of ectopic , schizoaffective disorder, PTSD, and schizoaffective disorder who is admitted to psychiatry unit for increasing depression with SI. Patient with increasing auditory hallucinations telling her to harm herself, the patient has not yet acted on these voices. Medical consult for admission H&P. Mood disorder Plan as per Psychiatry Nasal congestion Likely secondary to seasonal allergies Patient without fever, sore throat, or sinus pain Patient has taken Claritin to no effect Continue hydroxyzine p.r.n. Afrin 2 sprays in each nostril b.i.d. p.r.n. Use Afrin only for a total of 3 days concurrently or 6 total doses if not on concurrent days Patient otherwise has no acute medical complaints known chronic medical conditions. Will sign off for now. Thank you for allowing us to participate in the care of this patient. Please re-consult if any acute issue or need arises. Patient educated on: medication risk/benefits Informed Consent: further education needed Reason for continued inpatient stay Substantial Risk for: inability to function and rapid decompensation Time Spent With Patient Time: Total time managing care of this patient today ____ minutes.
[2024-07-04] MEDS: Oxymetazoline HCl 0.05 % Nasal 15 ML SPRAY 2 SPRAY NOSTRIL-B ×2 (08:39→21:22)
[2024-07-04] MEDS: buPROPion HCL 75 MG TABLET PO (08:39)
[2024-07-04] MEDS: Nicotine 21 MG PATCH.TD24 TRANSDERMA (08:39)
[2024-07-04] MEDS: Baclofen 10 MG TABLET PO ×3 (08:39→21:22)
[2024-07-04] MEDS: risperiDONE 2 MG TABLET PO (08:39)
[2024-07-04 11:39] LABS: Alanine Aminotransferase 18 U/L (0-31); Albumin Level 4.2 g/dL (3.5-5.0); Alkaline Phosphatase 52 U/L (39-117); Anion Gap 13 (12-20); Aspartate Amino Transferase 21 U/L (5-31); Bilirubin Total 0.1 mg/dL (0.0-1.0); Blood Urea Nitrogen 14 mg/dL (9-16); Calcium 9.8 mg/dL (8.4-10.2); Carbon Dioxide 29 mmol/L (22-29); Chloride 106 mmol/L (96-108); Cholesterol 186 mg/dL (<200); Creatinine Clr Calc Pharmacy 64.3; Estimated Glomerular Filt Rate > 60; Glucose Fasting 51 mg/dL (60-99); HDL Cholesterol 74 mg/dL (>40); LDL Cholesterol Calculated 98 mg/dL (<100); Potassium 4.5 mmol/L (3.3-5.1); Sodium 143 mmol/L (135-145); Total Protein 7.7 g/dL (6.5-8.0); Triglycerides 71 mg/dL (<150)
[2024-07-04 13:07] LABS: Glucose, Whole Blood 107 mg/dL (60-115)
[2024-07-04 19:30] VITALS: BP 99/62; PULSE 83; RESP 16; TEMP 37; O2SAT 99
[2024-07-04] MEDS: risperiDONE 2 MG TABLET 4 MG PO (21:21)
[2024-07-04] MEDS: Divalproex Sodium ER 500 MG TAB.ER.24H 1000 MG PO (21:21)
[2024-07-04] MEDS: traZODone HCL 50 MG TABLET PO (21:22)
[2024-07-04 22:55] LABS: Glucose, Whole Blood 106 mg/dL (60-115)
--- OUTSIDE RECORDS SUMMARY | 2024-07-05 00:24 | XMS_ITS ---
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
--- OUTSIDE RECORDS SUMMARY | 2024-07-05 00:24 | XMS_ITS ---
Author Organization [facility] Address [address] [place], [place] [phone] Care Team Providers Care System Auditor Name Role Phone [facility] um[facility] Unavailable Mena Shannon Unavailable [phone] [facility] Unavailable Unavailable MEDICATIONS Medication SIG (Take, Route, Frequency, Duration) Notes Start Date End Date Status citalopram 20 mg 1 tab(s) orally once a day for 30 day(s) Active OLANZapine 15 mg 1 tab(s) orally QHS Active Nicoderm C-Q 7 mg/24 hr 1 PATCH transder emile once a day Active hydrOXYzine hydrochloride 50 mg 1 tab(s) orally 3 times a day PRN anxiety Active citalopram 20 mg 1 tab(s) orally once a day Active olanzapine 5 mg one tab orally daily in am Active cloNIDine 0.1 mg 1 tab(s) orally PRN Active Encounters Encounter Location Date Provider Diagnosis [facility] [address], [place] [phone] 06/29/2024 Mena Shannon PLAN OF TREATMENT No Information History and Physical Notes * HPI (History of Present Illness) Category Sub-Category Detail Notes Social Service Referral Source returning client Interpretation for medical provider hous ing
--- OUTSIDE RECORDS SUMMARY | 2024-07-05 00:24 | XMS_ITS | Patient Health Record ---
Author Organization [facility] Address [address], [place] [phone] Care Team Providers Care Arts Therapist Name Role Phone [facility] Unavailable [place] Unavailable [facility] Unavailable Unavailable ALLERGIES Allergen (clinical drug ingredient) Drug/Non Drug Allergy documented on EMR Reaction Allergy Type Onset Date Status quetiapine Seroquel drowsiness, extreme Drug Allergy Active Haldol racing thoughts Drug Allergy A ctive REASON FOR REFERRAL No Information MEDICATIONS Medication SIG (Take, Route, Frequency, Duration) Notes Start Date End Date Status olanzapine 5 mg one tab orally daily in am Active cloNIDine 0.1 mg 1 tab(s) orally PRN Active citalopram 20 mg 1 tab(s) orally once a day for 30 day(s) Active OLANZapine 15 mg 1 tab(s) orally QHS Active Nicoderm C-Q 7 mg/24 hr 1 PATCH transder emile once a day Active hydrOXYzine hydrochloride 50 mg 1 tab(s) orally 3 times a day PRN anxiety Active citalopram 20 mg 1 tab(s) orally once a day Active SOCIAL HISTORY Tobacco Use: Social History Observation Description Date Details (start date - stop date) Current Smoker NA - NA Sex Assigned At : Social History Observation Description Sex Assigned At Unknown Tobacco Use Assessment MU Question Answer Notes What is your current smoking status? current smo ker How often do you smoke? every day How many cigarettes a day do you smoke? 6-10 How soon after you wake up do you smoke your fir st cigarette? 6-30 minutes Are you interested in quitting? not ready to santos t Patient counseled on the leticia gers of tobacco use and advised to quit: 08/27/2013 PROBLEMS Problem Type ICD Code Onset Dates Problem Status W/U Status Risk SNOMED Code Notes Problem BIPOLAR DISORDER NEC (296.89) Active confirmed Bipolar disorde r (93255348) Problem BMI BETWEEN 19-24,ADULT (V85.1) Active confirmed Body mass index 20-24 - normal (672962804) Problem Schizoaffective disorder, depressive type (F25.1) Active confirmed Schizoaffective disorder, depressive type (47662875) Problem Alcohol dependence, uncomplicated (F10.20) Active confirmed Alcohol dependence (95610371) Problem Cocaine abuse, uncomplicated (F14.10) Active confirmed Cocaine abuse (42851634) Encounters Encounter Location Date Provider Diagnosis [facility] [address] [place] [phone] 02/20/2024 Mena Shannon [facility] [phone] 06/12/2024 Mena Shannon [facility] [phone] 02/10/2024 Mena Shannon [facility] [phone] 06/29/2024 Mena Shannon PLAN OF TREATMENT No Information Insurance Providers Payer Name Payer Address Payer Phone Subscriber Number Group Number Insured Name Patient Relationship to Insured Coverage Start Date Coverage End Date [place] Medicaid Standard [address] [place] [address] [id number] Narcisa Vann Self - patient is the insured MEDICAL (GENERAL) HISTORY Medical History History ICD Code anemia sickle cell trait schizophrenia Ectopic , age 17 Suicide attempt via pill OD, age 17 and 22
--- OUTSIDE RECORDS SUMMARY | 2024-07-05 00:24 | XMS_ITS ---
Author Organization [facility] Address [address], [place] [phone] Care Team Providers Care Cargo Checker Name Role Phone [facility] Provi um[facility] Unavailable Mena Shannon Unavailable [facility] Unavailable Unavailable Encounters Encounter Location Date Provider Diagnosis [facility] [address], [place] [phone] 02/20/2024 Mena Shannon PLAN OF TREATMENT No Information
[2024-07-05 07:55] VITALS: BP 118/54; PULSE 64; RESP 12; TEMP 36.6; O2SAT 99
[2024-07-05] MEDS: Baclofen 10 MG TABLET PO (09:14)
[2024-07-05] MEDS: risperiDONE 2 MG TABLET PO (09:14)
[2024-07-05] MEDS: buPROPion HCL 75 MG TABLET PO (09:14)
[2024-07-05] MEDS: Nicotine 21 MG PATCH.TD24 TRANSDERMA (09:14)
[2024-07-05] MEDS: Oxymetazoline HCl 0.05 % Nasal 15 ML SPRAY 2 SPRAY NOSTRIL-B (10:25)
[2024-07-05] MEDS: Baclofen 10 MG TABLET 15 MG PO ×2 (14:51→20:58)
[2024-07-05] MEDS: OLANZapine 5 MG TABLET PO (16:29)
[2024-07-05 19:40] VITALS: BP 94/55; PULSE 62; RESP 16; TEMP 36.9; O2SAT 99
[2024-07-05] MEDS: risperiDONE 2 MG TABLET 4 MG PO (20:58)
[2024-07-05] MEDS: Divalproex Sodium ER 500 MG TAB.ER.24H 1000 MG PO (20:58)
[2024-07-05 22:17] LABS: Glucose, Whole Blood 104 mg/dL (60-115)
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
[2024-07-06 08:05] VITALS: BP 109/55; PULSE 67; RESP 18; TEMP 36.8; O2SAT 99
[2024-07-06 08:30] LABS: Glucose, Whole Blood 82 mg/dL (60-115)
[2024-07-06] MEDS: buPROPion HCL 75 MG TABLET PO (09:02)
[2024-07-06] MEDS: risperiDONE 2 MG TABLET PO (09:03)
[2024-07-06] MEDS: Nicotine 21 MG PATCH.TD24 TRANSDERMA (09:03)
[2024-07-06] MEDS: Baclofen 10 MG TABLET 15 MG PO ×3 (09:03→20:46)
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
--- NOTE | 2024-07-06 13:48 | MHC.RECOVRN ---
AUDIT-C Brief Intervention Pt had positive screen for unhealthy alcohol use on admission, subsequently met with t/w to discuss alcohol use and recovery supports/options. Pt does not voice concern regarding alcohol use due to reporting not consuming alcohol. Provided pt with written resources including information on inpatient and outpatient treatment, LIBBY, harm reduction, and recovery coaching if pt ever feels they are needed. Pt plans to pursue inpatient substance use treatment for cocaine use disorder. Pt also reports she has recently began baclofen for cocaine cravings, has not noticed an effect yet. Pt provided with t/w contact information if questions or concerns arise. Denies other questions or concerns at this time.
[2024-07-06 19:20] VITALS: BP 96/53; PULSE 71; RESP 18; TEMP 36.6; O2SAT 98
[2024-07-06] MEDS: Divalproex Sodium ER 500 MG TAB.ER.24H 1000 MG PO (20:45)
[2024-07-06] MEDS: risperiDONE 2 MG TABLET 4 MG PO (20:45)
[2024-07-07 07:43] VITALS: O2SAT 98
[2024-07-07 08:08] LABS: Ammonia 42 umol/L (13-55)
[2024-07-07 08:18] LABS: Valproate 73.4 mcg/mL (50.0-100.0)
[2024-07-07 08:31] LABS: Albumin Level 3.6 g/dL (3.5-5.0); Alkaline Phosphatase 44 U/L (39-117); Aspartate Amino Transferase 13 U/L (5-31); Bilirubin Direct < 0.2 mg/dL (0.0-0.5); Bilirubin Total 0.2 mg/dL (0.0-1.0); Total Protein 6.6 g/dL (6.5-8.0)
[2024-07-07] MEDS: Baclofen 10 MG TABLET 15 MG PO ×3 (08:42→20:33)
[2024-07-07] MEDS: buPROPion HCL 75 MG TABLET PO (08:42)
[2024-07-07] MEDS: Nicotine 21 MG PATCH.TD24 TRANSDERMA (08:43)
[2024-07-07] MEDS: risperiDONE 2 MG TABLET PO (08:43)
[2024-07-07 11:18] LABS: Alanine Aminotransferase 8 U/L (0-31)
--- NOTE | 2024-07-07 11:41 | HO.PSYCHPN ---
Documented by User: Renu Tamayo NP 07/07/24 14:55 Subjective Subjective Date of Service: 07/07/24 Reason For Visit: F20.9 ,F12.20,F14.20 Subjective Notes: Conditional Voluntary Interim History: Reviewed with Dr. Perez. Keeping to self. medication compliant. Patient continues to report feeling okay ; patient states she is waiting to be 35'd because I need it . She reports sleeping well. Denies SI/HI/VH/AH. Valproic acid 73.4 on 07/07/24. Medication Compliance: Yes Side effects from medications: No Attending Groups: No Review of Systems Constitutional: Reports as per HPI Eyes: Reports as per HPI Reports as per HPI Cardiovascular: Reports as per HPI Respiratory: Reports as per HPI Gastrointestinal: Reports as per HPI Musculoskeletal: Reports as per HPI Skin/Breast: Reports as per HPI Reports as per HPI Psychiatric: Reports as per HPI Endocrine: Reports as per HPI Hematologic/Lymphatic: Reports as per HPI Allergic/Immunologic: Reports as per HPI Mental Status Exam Mental Status Exam Narrative: Pt is alert and oriented; behavior is cooperative, calm; dressed in casual attire; mood is described as okay ; eye contact appropriate; Speech is normal rate, volume and not pressured; thought process is organized and goal directed; Thought content is on tx; denies SI/HI/VH/AH. Diagnostics Vital Signs (24Hr): Vital Signs - 24 hr 07/06/24 19:20 07/07/24 07:43 Temperature 97.8 F Pulse Rate 71 Respiratory Rate 18 Blood Pressure 96/53 L Pulse Oximetry 98 98 Oxygen Delivery Method Room Air Room Air BMI result Body Mass Index 24.0 Labs 07/04/24 10:24 Labs: Laboratory Results - last 48 hr 07/05/24 07/06/24 07/07/24 20:57 08:21 07:51 POC Glucose 104 82 Total Bilirubin 0.2 Direct Bilirubin < 0.2 AST 13 ALT 8 Alkaline Phosphatase 44 Ammonia 42 Total Protein 6.6 Albumin 3.6 Valproic Acid 73.4 Medications Medications Current Medications Acetaminophen (Acetaminophen 325 Mg Tablet) 650 mg PO Q6H PRN PRN Reason: Headache/Pain Mild Scale (1-3) Al Hydroxide/Mg Hydroxide (Magnesium Hydrox/Alum Hydrox 30 Ml Oral.Susp) 30 ml PO Q6H PRN PRN Reason: Heartburn/Nausea Baclofen (Baclofen 10 Mg Tablet) 15 mg PO TID [facility] Last Admin: 07/07/24 08:42 Dose: 15 mg Bupropion HCl (Bupropion Hcl 75 Mg Tablet) 75 mg PO DAILY [facility] Last Admin: 07/07/24 08:42 Dose: 75 mg Divalproex Sodium (Divalproex Sodium Er 500 Mg Tab.Er.24h) 1,000 mg PO BEDTIME [facility] Last Admin: 07/06/24 20:45 Dose: 1,000 mg Hydroxyzine HCl (Hydroxyzine Hcl 25 Mg Tablet) 25 mg PO Q6H PRN PRN Reason: Anxiety Last Admin: 07/03/24 20:14 Dose: 25 mg Magnesium Hydroxide (Milk Of Magnesia 30 Ml Oral.Susp) 30 ml PO DAILY PRN PRN Reason: Constipation Nicotine (Nicotine 21 Mg Patch.Td24) 21 mg TRANSDERMA DAILY [facility] Last Admin: 07/07/24 08:43 Dose: 21 mg Nicotine Polacrilex (Nicotine Polacrilex 2 Mg Gum) 4 mg BUCCAL Q2H PRN PRN Reason: Nicotine Cravings Olanzapine (Olanzapine 5 Mg Tablet) 5 mg PO BID PRN PRN Reason: agitation Last Admin: 07/05/24 16:29 Dose: 5 mg Oxymetazoline HCl (Oxymetazoline Hcl 0.05 % Nasal 15 Ml [place]) 2 spray NOSTRIL-B BID PRN PRN Reason: Nasal Congestion Last Admin: 07/05/24 10:25 Dose: 2 spray Risperidone (Risperidone 2 Mg Tablet) 4 mg PO BEDTIME [facility] Last Admin: 07/06/24 20:45 Dose: 4 mg Risperidone (Risperidone 2 Mg Tablet) 2 mg PO DAILY [facility] Last Admin: 07/07/24 08:43 Dose: 2 mg Trazodone HCl (Trazodone Hcl 50 Mg Tablet) 50 mg PO BEDTIME MRX1 PRN PRN Reason: Insomnia Last Admin: 07/04/24 21:22 Dose: 50 mg Allergies Allergies Allergy/AdvReac Type Severity Reaction Status Date / Time quetiapine [From Seroquel] Allergy Hallucinati Verified 06/15/24 16:55 ons haloperidol [From Haldol] AdvReac Hallucinati Verified 06/15/24 16:55 ons Assessment & Plan Assessment & Plan (1) Schizoaffective disorder: Status: Chronic Code(s): F25.9 - Schizoaffective disorder, unspecified (2) Chronic post-traumatic stress disorder (PTSD): Status: Acute Code(s): F43.12 - Post-traumatic stress disorder, chronic (3) Cocaine use disorder: Status: Acute Code(s): F14.10 - Cocaine abuse, uncomplicated (4) Cannabis use disorder, moderate, dependence: Status: Acute Code(s): F12.20 - Cannabis dependence, uncomplicated Plan Patient is a 43 year old female with hx of schizoaffective d/o, PTSD and cocaine use d/o who self presented to [facility] d/t suicidal and homicidal ideation secondary to increased auditory hallucinations after daily cocaine use. Plan: CV 15 minute safety checks Continue home medications File for section 35 Encourage groups Discharge planning 43 yo AAF with psychiatric illness with repeated hospitalizations after being dced and using cocaine, hoping to get 35a to get away from urge to use- immediately on dc - which she finds uncontrollable . Asking for Baclofen for cravings- which we started - Also asked for gabapentin but since on depakote it seemed unlikely to be off added benefit right now toward ? goal. She co Tourettes like things coming out of her mouth but says goes away as gets better, further away from use- AH also better to gone- with not using cocaine and back on meds 07/06: Keeping to self, lying in bed most of the morning. Patient reports feeling okay today; patient stated, my voices went away on Saturday. I still want to be Section 35'd. My dad is happy about it . Patient reports sleeping well. Medication compliant. Denies SI/HI/VH/AH. Per social work, Plan is to file section 35 tomorrow 07/07: Keeping to self. medication compliant. Patient continues to report feeling okay ; patient states she is waiting to be 35'd because I need it . She reports sleeping well. Denies SI/HI/VH/AH. Valproic acid 73.4 on 07/07/24. Continue current treatment plan. Patient educated on: diagnosis and medication risk/benefits Reason for continued inpatient stay Substantial Risk for: med/psych decompensation Time Spent With Patient Time: Total time managing care of this patient today _20___ minutes. Documented by User: Pierre Perez MD 07/07/24 17:33 Subjective Subjective Reason For Visit: F20.9 ,F12.20,F14.20 Diagnostics Labs 07/04/24 10:24 Assessment & Plan Assessment & Plan (1) Schizoaffective disorder: Status: Chronic Code(s): F25.9 - Schizoaffective disorder, unspecified (2) Chronic post-traumatic stress disorder (PTSD): Status: Acute Code(s): F43.12 - Post-traumatic stress disorder, chronic (3) Cocaine use disorder: Status: Acute Code(s): F14.10 - Cocaine abuse, uncomplicated (4) Cannabis use disorder, moderate, dependence: Status: Acute Code(s): F12.20 - Cannabis dependence, uncomplicated Plan Patient is a 43 year old female with hx of schizoaffective d/o, PTSD and cocaine use d/o who self presented to [facility] d/t suicidal and homicidal ideation secondary to increased auditory hallucinations after daily cocaine use. Plan: CV 15 minute safety checks Continue home medications File for section 35 Encourage groups Discharge planning 43 yo AAF with psychiatric illness with repeated hospitalizations after being dced and using cocaine, hoping to get 35a to get away from urge to use- immediately on dc - which she finds uncontrollable . Asking for Baclofen for cravings- which we started - Also asked for gabapentin but since on depakote it seemed unlikely to be off added benefit right now toward ? goal. She co Tourettes like things coming out of her mouth but says goes away as gets better, further away from use- AH also better to gone- with not using cocaine and back on meds 07/06: Keeping to self, lying in bed most of the morning. Patient reports feeling okay today; patient stated, my voices went away on Saturday. I still want to be Section 35'd. My dad is happy about it . Patient reports sleeping well. Medication compliant. Denies SI/HI/VH/AH. Per social work, Plan is to file section 35 tomorrow 07/07: Keeping to self. medication compliant. Patient continues to report feeling okay ; patient states she is waiting to be 35'd because I need it . She reports sleeping well. Denies SI/HI/VH/AH. Valproic acid 73.4 on 07/07/24. Continue current treatment plan. Agree with plan to section 35
[2024-07-07 20:00] VITALS: BP 117/65; PULSE 66; RESP 16; TEMP 36.4; O2SAT 100
[2024-07-07] MEDS: traZODone HCL 50 MG TABLET PO (20:34)
[2024-07-07] MEDS: risperiDONE 2 MG TABLET 4 MG PO (20:34)
[2024-07-07] MEDS: Divalproex Sodium ER 500 MG TAB.ER.24H 1000 MG PO (20:34)
[2024-07-08 08:00] VITALS: BP 97/62; PULSE 73; RESP 14; TEMP 36.4; O2SAT 96
[2024-07-08] MEDS: Nicotine 21 MG PATCH.TD24 TRANSDERMA (08:13)
[2024-07-08] MEDS: Baclofen 10 MG TABLET 15 MG PO (08:14)
[2024-07-08] MEDS: risperiDONE 2 MG TABLET PO (08:15)
[2024-07-08] MEDS: buPROPion HCL 75 MG TABLET PO (08:15)
--- NOTE | 2024-07-08 12:34 | P.DS_ITS ---
DS: Providers Provider Date of Service: 07/08/24 Date of admission: 07/03/24 13:26 Date of discharge: 07/08/24 Primary care physician: Unknown Physician Admitting clinician: Renu Tamayo Attending physician on admission: Pierre Perez Consults: 07/03/24 13:35 Consult to Hospitalist Routine Comment: Consulting Provider: Hospitalist Reason For Exam: H&P, new admit 07/03/24 14:29 Addiction Medicine Routine Consulting Provider: Addiction Covering Reason for consultation: alcohol and crack Attending physician on discharge: Pierre Perez Discharging clinician: Renu Tamayo DS: Diagnosis Discharge Diagnosis (1) Schizoaffective disorder: Status: Chronic (2) Chronic post-traumatic stress disorder (PTSD): Status: Acute (3) Cocaine use disorder: Status: Acute (4) Cannabis use disorder, moderate, dependence: Status: Acute DS: Medications Discharge Medications Home Medications: Previous Rx's ?Medication ?Instructions ?Recorded bupropion HCl 75 mg tablet 75 mg PO DAILY 30 days #30 tabs 06/23/24 divalproex 500 mg tablet,extended 1,000 mg (2 x 500 mg) PO BEDTIME 06/23/24 release 24 hr 30 days #60 tabs hydroxyzine HCl 25 mg tablet 25 mg PO BID PRN Anxiety 30 days 06/23/24 #60 tabs olanzapine 5 mg tablet 5 mg PO BID PRN agitation 30 days 06/23/24 #60 tabs risperidone 2 mg tablet 2 mg PO DAILY 30 days #30 tabs 06/23/24 risperidone 4 mg tablet (Risperdal) 4 mg PO BEDTIME 30 days #30 tabs 06/23/24 trazodone 50 mg tablet 50 mg PO BEDTIME 30 days #30 tabs 06/23/24 baclofen 10 mg tablet 15 mg (1.5 x 10 mg) PO TID #0 tabs 07/08/24 nicotine 21 mg/24 hr daily 21 mg transdermal DAILY #0 ea 07/08/24 transdermal patch Mental Status Exam Mental Status Exam Narrative: Pt is alert and oriented; behavior is cooperative, calm; dressed in casual attire; mood is described as good ; eye contact appropriate; Speech is normal rate, volume and not pressured; thought process is organized and goal directed; Thought content is on tx; denies SI/HI/VH/AH. Data Data Completed and Pending Completed studies during hospitalization [Text1]: 07/04/24 07/04/24 07/04/24 10:24 13:01 21:19 Sodium 143 Potassium 4.5 Chloride 106 Carbon Dioxide 29 Anion Gap 13 BUN 14 Creatinine 0.90 Estim Creat Clear Calc 64.3 Estimated GFR > 60 POC Glucose 107 106 Fasting Glucose 51 L* Calcium 9.8 D Total Bilirubin 0.1 Direct Bilirubin AST 21 ALT 18 Alkaline Phosphatase 52 Ammonia Total Protein 7.7 Albumin 4.2 Triglycerides 71 Cholesterol 186 LDL Cholesterol, Calc 98 HDL Cholesterol 74 Valproic Acid 07/05/24 07/06/24 07/07/24 20:57 08:21 07:51 Sodium Potassium Chloride Carbon Dioxide Anion Gap BUN Creatinine Estim Creat Clear Calc Estimated GFR POC Glucose 104 82 Fasting Glucose Calcium Total Bilirubin 0.2 Direct Bilirubin < 0.2 AST 13 ALT 8 Alkaline Phosphatase 44 Ammonia 42 Total Protein 6.6 Albumin 3.6 Triglycerides Cholesterol LDL Cholesterol, Calc HDL Cholesterol Valproic Acid 73.4 DS: Summary Hospital Course Hospital Course: Patient is a 43 year old female with hx of schizoaffective d/o, PTSD and cocaine use d/o who self presented to [facility] d/t suicidal and homicidal ideation secondary to increased auditory hallucinations after daily cocaine use. Per crisis report, pt has a hx of medication noncompliance and crack use. Patient was [place] [facility] Patient reports she has been using substances which she knows leads to increased hallucinations. She reports hearing voices telling her to harm herself and her parents. Patient stated she had suicidal ideation with plan to jump off of a bridge but denied plan for homicide. Utox positive for cocaine and cannabis. During admission assessment, pt presents alert and oriented x3, calm, cooperative. Patient reports feeling anxious and depressed ; pt stated, [facility] and only stayed [facility] for a few days and left because I wanted to use. I went home and I did not use right away but the next thing I knew I was using. Patient reports auditory hallucinations telling her to harm herself and other people. Patient stated, that started scaring me so I told my father and he brought me to the hospital . Patient reports visual hallucinations of seeing people staring at her. She reports suicidal ideation with no plan. Patient reports she has not been medication compliant after leaving [facility] and has been using cocaine. Patient reports that she believe she needs to be section 35'd because she wants to stop using. Plan: CV 15 minute safety checks Continue home medications File for section 35 Encourage groups Discharge planning 43 yo AAF with psychiatric illness with repeated hospitalizations after being dced and using cocaine, hoping to get 35a to get away from urge to use- immedi ately on dc - which she finds uncontrollable . Asking for Baclofen for cravings- which we started - Also asked for gabapentin but since on depakote it seemed unlikely to be off added benefit right now toward ? goal. She co Tourettes like things coming out of her mouth but says goes away as gets better, further away from use- AH also better to gone- with not using cocaine and back on meds Keeping to self, lying in bed most of the morning. Patient reports feeling okay today; patient stated, my voices went away on Saturday. I still want to be Section 35'd. My dad is happy about it . Patient reports sleeping well. Medication compliant. Denies SI/HI/VH/AH. Per social work, Plan is to file section 35 tomorrow Keeping to self. medication compliant. Patient continues to report feeling okay ; patient states she is waiting to be 35'd because I need it . She reports sleeping well. Denies SI/HI/VH/AH. Valproic acid 73.4 on 07/07/24. Continue current treatment plan. Active on unit. Reports feeling good . Patient stated. , I'm just waiting for court so I can go to treatment . Patient denies SI/HI/VH/AH. Patient was picked up by Michael RUBY brought for section 35. Time spent discussing smoking cessation with patient: 3 to 10 minutes Status at Discharge Cognitive/behavioral status at discharge: Patient was interviewed prior to discharge and found to be fully oriented and without SI or HI. Patient has insight and demonstrates good judgment in terms of wanting to pursue treatment. Patient has a safety plan that includes presenting to the closest ER or calling 911 if feeling unsafe. Functional status at discharge: independent ambulation Overall status at discharge: patient is back to baseline Time Spent with Patient Time attestation: Total time managing care of this patient today _20___ minutes. Time spent: Less than 30 minutes Discharge Plan Discharge Anticipated Discharge Date/Time: 07/08/24 12:30 Patient Disposition: Xfer Other Discharge Diagnosis: Schizoaffective d/o, PTSD, Cocaine use d/o, Cannabis use d/o Referrals: Physician,Unknown J [Primary Care Provider] - 1 Week Discharge Medications: New baclofen 10 mg Tablet 15 mg PO TID Qty: 0 0RF nicotine 21 mg/24 hr Patch 24 Hour 21 mg transdermal DAILY Qty: 0 0RF Continued hydroxyzine HCl 25 mg Tablet 25 mg PO BID PRN (Reason: Anxiety) 30 Days Qty: 60 0RF divalproex 500 mg Tablet Extended Release 24 Hr 1,000 mg PO BEDTIME 30 Days Qty: 60 0RF trazodone 50 mg tablet 50 mg PO BEDTIME 30 Days Qty: 30 0RF risperidone [Risperdal] 4 mg tablet 4 mg PO BEDTIME 30 Days Qty: 30 0RF olanzapine 5 mg tablet 5 mg PO BID PRN (Reason: agitation) 30 Days Qty: 60 0RF risperidone 2 mg tablet 2 mg PO DAILY 30 Days Qty: 30 0RF bupropion HCl 75 mg tablet 75 mg PO DAILY 30 Days Qty: 30 0RF Discontinued baclofen 10 mg Tablet 10 mg PO TID 30 Days Qty: 90 0RF Discharge Orders: Discharge Order (Routine); Ordered 07/08/24 Ordered By: Renu Tamayo Diet: Regular diet Activity on Discharge: As tolerated Stand Alone Forms: Patient Portal Discharge page, Community Support Print Language: Maori Care Plan Goals: Maintain mood and safe behaviors Take medications as prescribed Continue to pursue sobriety Practice coping skills Continue with outpatient providers and reach out to them as needed Health Concerns: Mood stability and behaviors Sobriety Plan of Treatment: Follow up with your PCP, psychiatric provider and other outpatient providers r egarding above concerns Take medications as prescribed Assessment: Patient was interviewed prior to discharge and found to be fully oriented and without SI or HI. Patient has insight and demonstrates good judgment in terms of wanting to pursue treatment. Patient has a safety plan that includes presenting to the closest ER or calling 911 if feeling unsafe. Discharge Date/Time: 07/08/24 14:25
== END 2024-07-08 14:25 | disposition other institution (70) | DRG 885 ==
PROVIDERS: Admitting Provider Registered Nurse; Responsible Provider Registered Nurse; Visit Provider Psychiatry & Neurology Psychiatry
DX: F25.9 Schizoaffective disorder, unspecified (principal); R45.851 Suicidal ideations; F43.12 Post-traumatic stress disorder, chronic; F17.210 Nicotine dependence, cigarettes, uncomplicated; J30.2 Other seasonal allergic rhinitis; F14.90 Cocaine use, unspecified, uncomplicated; F12.20 Cannabis dependence, uncomplicated; Z71.6 Tobacco abuse counseling; Z79.899 Other long term (current) drug therapy
CPT/HCPCS: 36415; 80053; 80061; 80076; 80164; 82140; 82947

== ENCOUNTER → 2024-07-03 13:26 | Outpatient (BNV) | payer MEDICARE, MEDICAID, SELFPAY | PROVIDERS: Admitting Provider Registered Nurse; Responsible Provider Registered Nurse; Visit Provider Registered Nurse | DX: F25.1 Schizoaffective disorder, depressive type (principal); F14.10 Cocaine abuse, uncomplicated; F12.20 Cannabis dependence, uncomplicated; F43.12 Post-traumatic stress disorder, chronic | CPT/HCPCS: 90792; 99231; 99232; 99238 ==

== ENCOUNTER → 2024-07-03 13:26 | Outpatient (BNV) | payer MEDICARE, MEDICAID, SELFPAY | PROVIDERS: Admitting Provider Registered Nurse; Responsible Provider Registered Nurse; Visit Provider Student in an Organized Health Care Education/Training Program | DX: Z00.8 Encounter for other general examination (principal) | CPT/HCPCS: 99429 ==

== ENCOUNTER 2024-11-24 15:03 | Inpatient (IN) | payer MEDICARE, MEDICAID, SELFPAY ==
[2024-11-24 15:12] VITALS: BP 108/69; PULSE 86; RESP 20; TEMP 36.6; O2SAT 96; BMI 25.6
--- NOTE | 2024-11-24 15:13 | ED_ITS ---
HPI - General Adult General Chief complaint: Psychiatric Symptoms Stated complaint: SI Time Seen by Provider: 11/24/24 15:15 Source: patient and old records reviewed Mode of arrival: ambulatory Limitations: no limitations History of Present Illness ED Provider: ТАТЬЯНА SAWYER narrative: 44 yo female with PMH of anemia, PTSD, cocaine abuse, schizoaffective reports recent SI and thoughts of self harm with plan to OD on pills. She has no medical concerns other than chronically stuffy draining nose with white mcuous. No fevers or facial pain. She states she is hearing voices as well currently staying with a sister and taking her meds complaint: SI Onset (ago): day(s) Radiation: non-radiation Severity: moderate Relieving factors: none Exacerbating factors: other Associated symptoms: other (nasal congestion) Treatments prior to arrival: none Related Data Previous Rx's ?Medication ?Instructions ?Recorded bupropion HCl 75 mg tablet 75 mg PO DAILY 30 days #30 tabs 06/23/24 divalproex 500 mg tablet,extended 1,000 mg (2 x 500 mg) PO BEDTIME 06/23/24 release 24 hr 30 days #60 tabs hydroxyzine HCl 25 mg tablet 25 mg PO BID PRN Anxiety 30 days 06/23/24 #60 tabs olanzapine 5 mg tablet 5 mg PO BID PRN agitation 30 days 06/23/24 #60 tabs risperidone 2 mg tablet 2 mg PO DAILY 30 days #30 tabs 06/23/24 risperidone 4 mg tablet (Risperdal) 4 mg PO BEDTIME 30 days #30 tabs 06/23/24 trazodone 50 mg tablet 50 mg PO BEDTIME 30 days #30 tabs 06/23/24 baclofen 10 mg tablet 15 mg (1.5 x 10 mg) PO TID #0 tabs 07/08/24 nicotine 21 mg/24 hr daily 21 mg transdermal DAILY #0 ea 07/08/24 transdermal patch Allergies Allergy/AdvReac Type Severity Reaction Status Date / Time quetiapine [From Seroquel] Allergy Hallucinati Verified 11/24/24 15:13 ons haloperidol [From Haldol] AdvReac Hallucinati Verified 11/24/24 15:13 ons Review of Systems 2 Review of Systems: Constitutional : No Fever, No Chills ENT/Mouth : No Ear Pain, No Nasal Congestion, No sore throat Eyes: No Eye Pain, No Swelling, No Redness Cardiovascular : No Chest Pain, No SOB Respiratory : No Cough, No Sputum, No Dyspnea Gastrointestinal : No Nausea, No Vomiting, No Diarrhea, No Hematochezia, No Melena Genitourinary : No Dysuria, No Urinary Frequency, No Hematuria Musculoskeletal : No Myalgias Skin : No Skin Lesions, No rash Neuro : No Weakness, No Numbness, No Paresthesias, No Dizziness, No Headache Psych : positive Anxiety, positive Depression, positive SI no HI, pos AH All other systems reviewed and are negative COUNTS INCLUDE 234 BEDS AT THE [facility] Past Medical History Attestation statement: The following information was validated with the patient. Source: old records reviewed Medical History Medical clearance for psychiatric admission Substance induced mood disorder Suicidal ideation Chronic post-traumatic stress disorder (PTSD) Cannabis use disorder, moderate, dependence Cocaine use disorder Schizoaffective disorder Social History Social History Household Members: Family Household Members Other:: father Housing: Apartment Housing Other:: [address] [place] [address] Do you presently have visiting nurse or other home services: No Alcohol intake: current Alcohol intake frequency: 3 or more drinks per day Alcohol type: hard liquor Comment: no additional interventions needed Patient Tobacco Use Status: Current everyday Tobacco user Tobacco use type: Cigarette Cigarette Packs Per Day: 1 Cigarettes Per Day: 20.0 Years Smoked: 5 Smoked in Last 30 Days: Yes e-Cigarette/Vaping Use: Never Used Patient Interested in Nicotine Replacement: Yes Patient Given Instructions on How to Stop Smoking: No Second Hand Smoke Exposure: No Use of substances other than those prescribed or required for medical reasons: Yes Substance Use Type: Crack/Cocaine and Marijuana Substance Use Frequency: Daily Last Used Substance: Just Prior to Admission Currently Displaying Signs/Symptoms of Drug Intoxication Withdrawal: No Other Past Substance Use Problem:: relapse x last 2 weeks Any prior treatment program specific to substance use: No Have you been hit, kicked, punched, or otherwise hurt by someone within the past year? If so, by whom?: No Do you feel safe in your current relationship?: No Current Relationship Is there a partner from a previous relationship who is making you feel unsafe now?: No Are you made to feel afraid or neglected: No Advance Directives: No Advance Directives Information Provided: No Do you have a plan to hurt others: No Plan Recently lost weight without trying: No How much weight loss: Not applicable Eating poorly because of decreased appetite: Yes Nutrition screen score: 1 Nutrition Risks: No Nutritional Risk Patient : No : No Poor oral hygiene: No service: No Sexual orientation: Straight/Heterosexual Physical Exam ED Vital Signs: Vital Signs - 24 hr 11/24/24 15:12 11/24/24 17:52 Temperature 98 F 98 F Pulse Rate 86 86 Respiratory Rate 20 20 Blood Pressure 108/69 108/69 Pulse Oximetry 96 96 Oxygen Delivery Method Room Air Room Air BMI result Body Mass Index 25.6 Appearance: Alert. Oriented X3. No acute distress. Eyes: Pupils equal, round and reactive to light. ENT: Pharynx normal. nares congested ?septum perforation, no abscess white discharge Neck: Normal inspection. Neck supple. CVS: Normal heart rate and rhythm. Pulses normal. Respiratory: No respiratory distress. Breath sounds normal. Abdomen: Soft and nontender. Skin: Skin warm and dry. Normal skin color. Normal skin turgor. Extremities: No lower extremity edema. No calf ttp Neuro: Oriented X 3. No motor deficit. No sensory deficit. CN2-12 intact Medications Administered Generic Name Dose Route Start Last Admin Trade Name Freq PRN Reason Stop Dose Admin Amoxicillin/Clavulanate Potassium 875 mg 11/24/24 21:00 11/24/24 21:36 Amoxicillin/Potassium Clav 875 Mg Tablet PO 11/29/24 20:59 875 mg BID YUDITH Administration Fluticasone Propionate 1 spray 11/24/24 15:45 11/24/24 21:37 Fluticasone Propionate Nasal 16 [employer] NOSTRIL-B 1 spray DAILY YUDITH Administration Olanzapine 10 mg 11/24/24 20:37 11/24/24 21:36 Olanzapine 10 Mg Tablet PO 10 mg Q6H PRN Administration psychosis/ agitation Medical Decision Making Medical Decision Making [facility] Narrative: 44 yo female with PMH of anemia, PTSD, cocaine abuse, schizoaffective here with c/o AH and SI she denies self harm labs and CARE team consult ordered. She also reports runny nose which could be allergies and or cocaine abuse vs sinusitis given it is thick will start on nasal spray, zyrtec, augmentin Differential Diagnosis Differential Diagnoses: The differential diagnosis associated with the presentation includes SI, schizoaffective, rhinorrhea from cocaine abuse, sinusitis, allergies Admission/Observation Consideration of admission/observation: Escalation of care including admission/observation considered physician observation started at 325pm pending CARE team Consult Healthcare Provider Management of the patient was discussed with: Behavioral Health Provider Lab Data MDM Lab Attestation statement: I reviewed the patient's lab results. 11/24/24 15:44 11/24/24 15:44 Labs: Lab Results 11/24/24 11/24/24 Range/Units 15:22 15:44 WBC 5.6 (4.8-10.8) X10*3/uL RBC 4.30 (4.20-5.50) X10*6/uL Hgb 11.5 L (12.0-16.0) g/dl Hct 34.7 L (37.0-47.0) % MCV 80.7 (80.0-98.0) fL MCH 26.7 L (27.0-33.0) pg MCHC 33.1 (31.0-35.0) g/dl RDW 16.2 H (11.0-16.0) % Plt Count 361 (160-400) X10*3/uL MPV 9.1 L (9.4-12.3) fL Immature Gran % (Auto) 0.2 (0.0-0.4) % Neut % (Auto) 39.9 L (45-73) % Lymph % (Auto) 45.6 H (20-40) % [place] % (Auto) 6.1 (2-11) % Eos % (Auto) 7.5 H (0-4) % Baso % (Auto) 0.7 (0-2) % Lymph # (Auto) 2.5 (1.2-4.9) X10*3/uL [place] # (Auto) 0.3 (0.1-1.2) X10*3/uL Eos # (Auto) 0.4 (0.0-0.4) X10*3/uL Baso # (Auto) 0.0 (0.0-0.2) X10*3/uL Abs Immat Gran (auto) 0.01 (0.00-0.03) X10*3/uL Absolute Neuts (auto) 2.2 (2.0-8.3) x10*3/uL Absolute Nucleated RBC 0.000 (0.0-0.012) X10*3/uL Nucleated RBC % (auto) 0.0 (0.0-0.2) /100WBC Sodium 140 (135-145) mmol/L Potassium 3.3 D (3.3-5.1) mmol/L Chloride 110 H (96-108) mmol/L Carbon Dioxide 22 (22-29) mmol/L Anion Gap 11 L (12-20) BUN 9 (9-16) mg/dL Creatinine 0.75 (0.5-1.4) mg/dL Estim Creat Clear Calc 84.7 Estimated GFR > 60 Random Glucose 111 (60-115) mg/dL Calcium 9.0 D (8.4-10.2) mg/dL Magnesium 1.9 (1.6-2.6) mg/dL Total Bilirubin 0.4 (0.0-1.0) mg/dL Direct Bilirubin 0.1 (0.0-0.5) mg/dL AST 19 (5-31) U/L ALT 10 (0-31) U/L Alkaline Phosphatase 42 (39-117) U/L Total Protein 7.1 (6.5-8.0) g/dL Albumin 3.8 (3.5-5.0) g/dL Urine Color Yellow Urine Appearance Clear Urine pH 6.0 (5.0-9.0) Ur Specific [place] 1.010 (1.005-1.025) Urine Protein Negative (Neg-Trace) mg/dL Urine Glucose (UA) Negative (Negative) mg/dL Urine Ketones Trace (Negative) mg/dL Urine Blood Negative (Negative) Urine Nitrite Negative (Negative) Ur Leukocyte Esterase Negative (Negative) Urine Test NEGATIVE (NEGATIVE) Urine Opiates Screen Not Detected (Not Detect) Ur Buprenorphine Scrn Not Detected (Not Detect) ng/mL Ur Oxycodone Screen Not Detected (Not Detect) ng/mL Urine Methadone Screen Not Detected (Not Detect) ng/mL Urine Fentanyl Screen Not Detected (Not Detect) Ur Barbiturates Screen Not Detected (Not Detect) Valproic Acid < 12.5 L (50.0-100.0) mcg/mL Ur Phencyclidine Scrn Not Detected (Not Detect) Ur Amphetamines Screen Not Detected (Not Detect) U Benzodiazepines Scrn Not Detected (Not Detect) Urine Cocaine Screen POSITIVE H (Not Detect) U Marijuana (THC) Screen POSITIVE H (Not Detect) Ethyl Alcohol 16 mg/dL External Record Review External record reviewed: Inpatient record and Outpatient record Discharge Plan Discharge Clinical Impression: Suicidal ideation, Rhinorrhea Patient Disposition: Still a Patient Interventions: Alexander-Suicide Risk Severity Scale Last Done: 11/24/24 17:53 Admission Worksheet (ED) Last Done: 11/24/24 20:19 Discharge Date/Time: 11/24/24 20:41
[2024-11-24 15:40] LABS: Appearance Urine Clear; Color Urine Yellow; Glucose Urine UA Negative (Negative); Leukocyte Esterase Urine Negative (Negative); Nitrite Urine Negative (Negative); Urine Blood Negative (Negative); Urine Ketones Trace mg/dL (Negative); Urine Protein Negative (Neg-Trace)
[2024-11-24 15:48] LABS: UPreg QC Valid YES; Urine Pregnancy NEGATIVE (NEGATIVE)
[2024-11-24 15:49] LABS: MANUAL DIFF FLAG NO
[2024-11-24 15:50] LABS: Amphetamine Screen Urine Not Detected (Not Detect); Barbiturates, Urine Not Detected (Not Detect); Benzodiazepines Screen Urine Not Detected (Not Detect); Buprenorphine Scr Not Detected (Not Detect); Cannabinoid Screen Urine POSITIVE (Not Detect); Cocaine Screen Urine POSITIVE (Not Detect); Fentanyl, urine Not Detected (Not Detect); Methadone Screen, Urine Not Detected (Not Detect); Opiate Screen Urine Not Detected (Not Detect); Oxycodone Screen Urine Not Detected (Not Detect); Phencyclidine Screen Urine Not Detected (Not Detect)
[2024-11-24 15:54] LABS: Basophils Percent Auto 0.7 % (0-2); Eosinophils Absolute Auto 0.4 X10*3/uL (0.0-0.4); Eosinophils Percent Auto 7.5 % (0-4); Hematocrit 34.7 % (37.0-47.0); Hemoglobin 11.5 g/dl (12.0-16.0); Imm Gran Abs Auto 0.01 X10*3/uL (0.00-0.03); Imm Gran Pct Auto 0.2 % (0.0-0.4); Lymphocytes Absolute Auto 2.5 X10*3/uL (1.2-4.9); Lymphocytes Percent Auto 45.6 % (20-40); Mean Corpuscular HGB Conc 33.1 g/dl (31.0-35.0); Mean Corpuscular Hemoglobin 26.7 pg (27.0-33.0); Mean Corpuscular Volume 80.7 fL (80.0-98.0); Mean Platelet Volume 9.1 fL (9.4-12.3); Monocytes Absolute Auto 0.3 X10*3/uL (0.1-1.2); Monocytes Percent Auto 6.1 % (2-11); Neutrophils Absolute Auto 2.2 x10*3/uL (2.0-8.3); Neutrophils Percent Auto 39.9 % (45-73); Platelet Count 361 X10*3/uL (160-400); Red Cell Distribution Width 16.2 % (11.0-16.0); White Blood Count 5.6 X10*3/uL (4.8-10.8)
[2024-11-24 16:04] LABS: Ethanol 16 mg/dL
[2024-11-24 16:08] LABS: Alanine Aminotransferase 10 U/L (0-31); Albumin Level 3.8 g/dL (3.5-5.0); Anion Gap 11 (12-20); Aspartate Amino Transferase 19 U/L (5-31); Bilirubin Direct 0.1 mg/dL (0.0-0.5); Bilirubin Total 0.4 mg/dL (0.0-1.0); Blood Urea Nitrogen 9 mg/dL (9-16); Carbon Dioxide 22 mmol/L (22-29); Chloride 110 mmol/L (96-108); Creatinine Clr Calc Pharmacy 84.7; Estimated Glomerular Filt Rate > 60; Glucose Random 111 mg/dL (60-115); Magnesium 1.9 mg/dL (1.6-2.6); Potassium 3.3 mmol/L (3.3-5.1); Sodium 140 mmol/L (135-145); Total Protein 7.1 g/dL (6.5-8.0)
[2024-11-24 16:22] LABS: Valproate < 12.5 mcg/mL (50.0-100.0)
[2024-11-24 16:32] LABS: Alkaline Phosphatase 42 U/L (39-117)
[2024-11-24 17:52] VITALS: BP 108/69; PULSE 86; RESP 20; TEMP 36.6; O2SAT 96
[2024-11-24 20:36] VITALS: BP 123/69; PULSE 88; RESP 16; TEMP 36.9; O2SAT 99
[2024-11-24 21:15] VITALS: BMI 25.2
--- NOTE | 2024-11-24 21:25 | PC.NURSE ---
Narcisa was admitted to [facility] at 2015 from [facility] on [facility] for treatment of psychosis and polysubstance abuse. She states that Risperdal ? stopped working? and she relapsed on crack 2 weeks ago. She said her voices got worse and started telling her to hurt herself. On admission to the unit she is calm and pleasant but declines to fully participate in admission process, ?I?m tired. I?ll do it tomorrow.? Mood is depressed. Affect is blunted.? She reports command hallucinations to harm herself but agrees to take rxd medications and let staff know if she is at imminent risk to harm self. ? I feel safe here.? She denies ideation, plan or intent to harm others. Thought process organized. Appetite is reportedly poor with no recent wt loss or gain. Sleep is reportedly poor but this can be attributed to recent substance abuse She reports and displays nasal congestion: flonase and amoxicillin ordered for sinus infection Otherwise she denies physical complaint. Goal of admission is to restart medications and refrain from substance use. She is on 15 minute checks for safety.
[2024-11-24] MEDS: OLANZapine 10 MG TABLET PO (21:36)
[2024-11-24] MEDS: Amoxicillin/Potassium Clav 875 MG TABLET PO (21:36)
[2024-11-24] MEDS: Fluticasone Propionate Nasal 16 GM SPRAY 1 SPRAY NOSTRIL-B (21:37)
[2024-11-25] MEDS: Nicotine 21 MG PATCH.TD24 TRANSDERMA (08:45)
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
[2024-11-25] MEDS: Fluticasone Propionate Nasal 16 GM SPRAY 1 SPRAY NOSTRIL-B (08:55)
[2024-11-25] MEDS: Amoxicillin/Potassium Clav 875 MG TABLET PO ×2 (08:56→21:06)
[2024-11-25 15:40] VITALS: BP 134/73; PULSE 85; RESP 16; TEMP 36.5; O2SAT 100
[2024-11-25] MEDS: Baclofen 10 MG TABLET 15 MG PO ×2 (15:51→21:06)
[2024-11-25] MEDS: Acetaminophen 325 MG TABLET 650 MG PO (16:03)
[2024-11-25 20:00] VITALS: BP 124/78; PULSE 85; RESP 16; TEMP 36.8; O2SAT 98
[2024-11-25] MEDS: Divalproex Sodium ER 500 MG TAB.ER.24H 1000 MG PO (21:06)
[2024-11-25] MEDS: risperiDONE 2 MG TABLET 4 MG PO (21:06)
[2024-11-26 07:00] VITALS: BMI 25.5
[2024-11-26 07:25] VITALS: BP 97/56; PULSE 72; RESP 18; TEMP 36.8; O2SAT 98
[2024-11-26] MEDS: Nicotine 21 MG PATCH.TD24 TRANSDERMA (09:04)
[2024-11-26] MEDS: Amoxicillin/Potassium Clav 875 MG TABLET PO ×2 (09:05→20:35)
[2024-11-26] MEDS: Fluticasone Propionate Nasal 16 GM SPRAY 1 SPRAY NOSTRIL-B (09:05)
[2024-11-26] MEDS: buPROPion HCL 75 MG TABLET PO (09:06)
[2024-11-26] MEDS: Baclofen 10 MG TABLET 15 MG PO ×3 (09:06→20:34)
[2024-11-26] MEDS: risperiDONE 2 MG TABLET 4 MG PO ×2 (09:06→20:34)
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
--- NOTE | 2024-11-26 15:14 | PM.EVENT ---
Event Note Date of Service: 11/26/24 Event Note: Pt is a 44-year-old female admitted to [facility] psych unit with hospitalist consultation for bilateral nasal congestion. Pt reports symptoms have been ongoing for many months now. Also reports having a ?itchy? throat. Has not yet followed up with PCP or ENT. Denies cough, fever, chills, difficulty breathing or shortness a breath. No sneezing or sore throat. Physical examination reveals patent, though swollen and narrowed nares. No significant drainage, erythema, or polyps seen. Pt currently be treated with Flonase from the ED. Will add Afrin 2 sprays bilaterally b.i.d. for a total of 3 days. Pt should follow-up with PCP and/or ENT outpatient for additional workup. Time Spent With Patient Time: Total time managing care of this patient today ____ minutes.
[2024-11-26 20:00] VITALS: BP 137/67; PULSE 67; RESP 16; TEMP 36.5; O2SAT 100
[2024-11-26] MEDS: Divalproex Sodium ER 500 MG TAB.ER.24H 1000 MG PO (20:34)
[2024-11-27 07:33] VITALS: BP 125/77; PULSE 75; RESP 16; TEMP 36.9; O2SAT 97
[2024-11-27 08:26] LABS: Estimated Average Glucose 103 mg/dL; Hemoglobin A1C 117.5654 umol/L; Hemoglobin A1c % 5.2 % (<6.0); Total Hemoglobin (HGBA1C) 3542.9646 umol/L
[2024-11-27 08:39] LABS: Alanine Aminotransferase 7 U/L (0-31); Anion Gap 13 (12-20); Aspartate Amino Transferase 19 U/L (5-31); Bilirubin Total 0.2 mg/dL (0.0-1.0); Blood Urea Nitrogen 9 mg/dL (9-16); Calcium 9.3 mg/dL (8.4-10.2); Carbon Dioxide 21 mmol/L (22-29); Chloride 111 mmol/L (96-108); Cholesterol 153 mg/dL (<200); Creatinine Clr Calc Pharmacy 81.2; Estimated Glomerular Filt Rate > 60; Glucose Random 80 mg/dL (60-115); HDL Cholesterol 61 mg/dL (>40); LDL Cholesterol Calculated 81 mg/dL (<100); Potassium 4.2 mmol/L (3.3-5.1); Sodium 141 mmol/L (135-145); Total Protein 7.7 g/dL (6.5-8.0); Triglycerides 59 mg/dL (<150)
[2024-11-27 08:44] LABS: Alkaline Phosphatase 46 U/L (39-117)
[2024-11-27 08:56] LABS: Thyroid Stimulating Hormone 0.32 uIU/mL (0.32-4.0)
[2024-11-27 09:09] LABS: Folate 6.8 ng/mL (> or = 4.0); Vitamin B12 526 pg/mL (200-900)
[2024-11-27] MEDS: Amoxicillin/Potassium Clav 875 MG TABLET PO (09:35)
[2024-11-27] MEDS: Baclofen 10 MG TABLET 15 MG PO (09:35)
[2024-11-27] MEDS: Nicotine 21 MG PATCH.TD24 TRANSDERMA (09:36)
[2024-11-27] MEDS: risperiDONE 2 MG TABLET 4 MG PO (09:36)
[2024-11-27] MEDS: buPROPion HCL 75 MG TABLET PO (09:36)
[2024-11-27] MEDS: Fluticasone Propionate Nasal 16 GM SPRAY 1 SPRAY NOSTRIL-B (09:56)
== END 2024-11-27 10:36 | disposition home or self-care (01) | DRG 882 ==
LOC: HO.ED 18:21 → HO.PADLT16 19:42
PROVIDERS: Admitting Provider Social Worker; Emergency Provider Emergency Medicine; Visit Provider Psychiatry & Neurology Psychiatry
DX: F43.12 Post-traumatic stress disorder, chronic (principal); R45.851 Suicidal ideations; Z59.02 Unsheltered homelessness; F14.10 Cocaine abuse, uncomplicated; F17.210 Nicotine dependence, cigarettes, uncomplicated; F10.90 Alcohol use, unspecified, uncomplicated; Z71.6 Tobacco abuse counseling; Z79.51 Long term (current) use of inhaled steroids; Z79.899 Other long term (current) drug therapy
CPT/HCPCS: 36415; 80048; 80053; 80061; 80076; 80164; 80307; 81003; 81025; 82607; 82746; 83036; 83735; 84443; 85025; 99285; S9485

== ENCOUNTER → 2024-11-24 18:51 | Outpatient (BNV) | payer MEDICARE, MEDICAID, SELFPAY | PROVIDERS: Admitting Provider Social Worker; Emergency Provider Emergency Medicine; Visit Provider Psychiatry & Neurology Psychiatry | DX: F14.10 Cocaine abuse, uncomplicated (principal); F43.12 Post-traumatic stress disorder, chronic; F10.90 Alcohol use, unspecified, uncomplicated; Z59.00 Homelessness unspecified | CPT/HCPCS: 90792; 99231; 99239 ==

== ENCOUNTER 2025-07-12 15:25 | Emergency (ER) | payer MEDICARE, MEDICAID, SELFPAY ==
--- OUTSIDE RECORDS SUMMARY | 2024-08-18 07:00 | XMS_ITS ---
Author Organization [facility] Address [address], [place] [id number] Care Team Providers Care Topographical Engineer Name Role Phone [facility] Provi umu [phone] Mena Shannon Unavailable ZZArchive - DO NOT USE, [facility] Sneha vailable Unavailable Encounters Encounter Location Date Provider Diagnosis [facility] [address], [place] [phone] 08/18/2024 Mena Shannon Plan Of Treatment No Information Progress Notes * Taye NEGROOB:09/12 (44 yo F)Acc No.[id number]:08/18/2024 Case Management Patient: Dianne RUELAS Narcisa MADERA Provider: Magdalena Shannon :1980 A ge:43 Y S ex:Female Date:08/18/2024 Address:[place] [address] Pcp:[facility] nt Subjective: * Chief Complaints: * * Medical History: Objective: Assessment: Plan: * Treatment: * Images: Billing Information: * Visit Code: * Procedure Codes: Care Plan Details* * Electronic signature of Rudy Shannon on 07/12/2025 at 12:00 PM EDT Sign off status: Pending * Provider: Magdalena Shannon Date: Generated for Ric brooks/Farhad/eTransmitting on: 0 07/12/2025 12:00 PM EDT
--- OUTSIDE RECORDS SUMMARY | 2025-05-07 09:15 | XMS_ITS ---
Author Organization [facility] Address [address], [place] [id number] Care Team Providers Care Residential Director Name Role Phone [facility] Primary [facility] Provi umu [phone] Mena Shannon Unavailable ZZArchive - DO NOT USE, [facility] Sneha vailable Unavailable Encounters Encounter Location Date Provider Diagnosis [facility] [address] [place], [place] [phone] 05/07/2025 Mena Shannon Plan Of Treatment No Information Progress Notes * Taye NEGROOB:09/12 (44 yo F)Acc No.[id number]:05/07/2025 Case Management Patient: Dianne RUELAS Narcisa MADERA Provider: Magdalena Shannon :1980 A ge:44 Y S ex:Female Date:05/07/2025 Address:[place] [address] Pcp:[facility] nt Subjective: * Chief Complaints: * * Medical History: Objective: Assessment: Plan: * Treatment: * Images: Billing Information: * Visit Code: * Procedure Codes: Care Plan Details* * Electronic signature of Rudy Shannon on 07/12/2025 at 03:53 PM EDT Sign off status: Pending * Provider: Magdalena Shannon Date: 05/07/2025 Generated for Ric brooks/Farhad/eTransmitting on: 0 07/12/2025 03:53 PM EDT
--- OUTSIDE RECORDS SUMMARY | 2025-05-24 09:15 | XMS_ITS ---
Author Organization [facility] Address [address], [place] [id number] Care Team Providers Care Lamp Clean[address] Light Name Role Phone [facility] Primary Care Provi umu [phone] Mena Shannon Unavailable [phone] ZZArchive - DO NOT USE, [facility] Sneha vailable Unavailable Encounters Encounter Location Date Provider Diagnosis [facility] [address] [place], [place] [phone] 05/24/2025 Mena Shannon Plan Of Treatment No Information Progress Notes * Taye NEGROOB:09/12 (44 yo F)Acc No.[id number]:05/24/2025 Case Management Patient: Dianne RUELAS Narcisa MADERA Provider: Magdalena Shannon :1980 A ge:44 Y S ex:Female Date:05/24/2025 Address:[place] [address] Pcp:[facility] nt Subjective: * Chief Complaints: * * Medical History: Objective: Assessment: Plan: * Treatment: * Images: Billing Information: * Visit Code: * Procedure Codes: Care Plan Details* * Electronic signature of Rudy Shannon on 07/12/2025 at 12:00 PM EDT Sign off status: Pending * Provider: Magdalena Shannon Date: 05/24/2025 Generated for Ric brooks/Farhad/eTransmitting on: 07/12/2025 12:00 PM EDT
--- OUTSIDE RECORDS SUMMARY | 2025-07-07 08:54 | XMS_ITS | Encounter Summary ---
Author Organization [facility] Address [address] [place] [address] Care Team Providers Care Barman Name Role Phone Physician, No Pcp Primary Care Provider Unavaila ble Reason for Visit * Reason Comments Suicidal Encounter Details Date Type Department Care Team (Late st Contact Info) Description 07/07/2025 8:54 AM EDT - 07/07/2025 3:32 PM EDT Emergency [facility] Emergency [address] [place] [id number] Elizabeth Vargas MD [address] [place] [address] Schizophrenia, unspecified type (CMS/[facility] V24, [facility] V28) (Primary Dx) Discharge Disposition: Home or Self Care Social History Tobacco Use Types Packs/Day Years Used Date Smoking Tobacco: Every Day Cigarettes Smokeless Tobacco: Never Alcohol Use Standard Drinks/Week Comments Not Currently 0 (1 standard drink = 0.6 oz pur e alcohol) Comments Unknown Sex and Gender Information Value Date Recorded Sex Assigned at Not on file Legal Sex Female 9:46 AM EST Gender Identity Not on file Sexual Orientation Not on file documented as of this encounter Last Filed Vital Signs Vital Sign Reading Time Taken Comments Blood Pressure 112/73 07/07/2025 1:41 PM EDT Pulse 77 07/07/2025 1:41 PM EDT Temperature 36.7 C (98.1 F) 07/07/2025 1:41 PM EDT Respiratory Rate 17 07/07/2025 1:41 PM EDT Oxygen Saturation 98% 07/07/2025 1:41 PM EDT Inhaled Oxygen Concentration - - Weight 65.8 kg (145 lb) 07/07/2025 8:59 AM EDT Height 157.5 cm (5' 2 ) 07/07/2025 8:59 AM EDT Body Mass Index 26.52 07/07/2025 8:59 AM EDT documented in this encounter Functional Status * Are you deaf or do you have serious difficulty hearing? Answer Date of Assessment Author No 03/01/2025 8:29 PM EDT Nabila Panda RN * Are you blind or do you have serious difficulty seeing, even when wearing glasses? Answer Date of Assessment Author No 03/01/2025 8:29 PM EDT Nabila Panda RN * Do you have serious difficulty walking or climbing stairs? Answer Date of Assessment Author No 03/01/2025 8:29 PM EDT Nabila Panda RN * Do you have serious difficulty dressing or bathing? Answer Date of Assessment Author No 03/01/2025 8:29 PM EDT Nabila Panda RN * Because of a physical, mental, or emotional condition, do you have serious difficulty doing errandsalone such as visiting the doctor? Answer Date of Assessment Author No 03/01/2025 8:29 PM EDT Nabila Panda RN documented as of this encounter Mental Status * Because of a physical, mental, or emotional condition, do you have serious difficulty concentrating, remembering, or making decisions? (5 years old or older) Answer Entry Date Author No 03/01/2025 8:29 PM EDT Nabila Panda RN documented in this encounter Discharge Instructions * Discharge Instructions* Elizabeth Vargas MD - 07/07/2025 3:26 PM EDT You were seen and evaluated in the emergency department with schizophrenia in the setting of running out of your medications. In the emergency department you were seen by the crisis service and a psychiatry nurse practitioner who ordered medications for you and gave you resources for outpatient psychiatric providers. Return to the emergency department with new or worsening symptoms including thoughts of harming yourself or others * Attachments The following attachments cannot be sent through Care Everywhere. * Mental Health Crisis: Getting Help: General Info (Yi) documented in this encounter Medications at Time of Discharge risperiDONE (RisperDAL) 2 mg tablet Take 1 tablet (2 mg total) by mouth 1 (one) time each day in the morning. 02/01/2025 documented as of this encounter Discharge Disposition Disposition Code Departure Means Destination Comment s Home or Self Care Reviewed discharge instructions with patient who verbalizes understanding of instructions. Patient educated to return to ED if symptoms begin to worsen. Patient seen ambulating out of ED with steady gait and no acute distress. documented in this encounter Progress Notes * Maribell Dunne NP - 07/07/2025 1:32 PM EDT Psychiatry Initial Intake Consult for medication management Narcisa Baptiste, as a 44-year-old female with a history of schizophrenia, opiate and alcohol usedisorder presenting to the emergency department complaining of suicidal ideation. Patient reports she recently lost her psychiatrist and has run out of her medications including Depakote and Haldol. S he reports she is now having auditory hallucinations telling her that they are going to pop her sheshould kill herself and she has been considering killing herself but does not have a plan. Denies homicidal ideation. Denies visual hallucinations, traumatic injury. Subjective 07/07/2025 I am doing better now Duration: 30 minutes Current Medications: Scheduled Meds: Continuous Infusions: PRN Meds: Stressors: housing instability Psychiatric History History of schizoaffective disorder and Tourette's syndrome. Current Psych Medication(s): Patient admits to intermittently taking medications and having missed a couple of days' Multiple prior medications trials including but not limited to: Remeron 15 mg PO QHS; Invega 6 mg PO daily; and Depakote 500 mg PO QHS. Psychiatrist/Psych Providers: history of providers through [facility]-denies current Suicide Attempts: Patient admits to one suicide attempt at the age of 18, OD Self-Injury: Patient denies. Inpatient Psych Hospitalizations: Patient has been hospitalized numerous times, she states over 1,000 times . She reports she was last hospitalized at the end Most recent a couple of months ago . Family Psych History Patient explains on her father's side there are several family members, including her grandfather that have schizophrenia. Substance Use History Current/Past Substance Use: Patient reports since leaving [facility] she has been smoking $40 worth of crack/cocaine, a little marijuana, and 2 nips of alcohol daily. Past detox/residential programs admissions: Patient reports she has been to [facility], [facility], and the [facility]. History of MAT (methadone/Suboxone/Vivitrol): Patient states she has a hx of being on Vivitrol. History of unintentional overdoses: Patient denies. Longest Period of Sobriety: 6 months Social History Living situation: Patient states has been staying with sister off and on Marital status: Patient reports being single, never . Trauma History: Patient denies. Legal issues (past and present): Patient denies current. She admits to multiple arrests and being incarcerated 3 years ago for theft. Educational History: Patient reports she dropped out of 9th grade and currently received SSI benefits. 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 Siblings: Patient reports having 2 sisters and 2 brothers. Children: Patient states she has one son. Medical History Past and Present medical issues: Patient denies. Allergies: Haldol, Seroquel Review of systems negative or noncontributory except psychiatric (see mental status examination below) MSE Alessandra: unkempt Beh: Calm, cooperative, good eye contact, no psychomotor agitation/retardation Speech: Regular R/R/V, spontaneous Mood: good Affect: congruent with mood, dysphoric range TP: goal oriented, linear TC: vague SI, denies HI, denies AVH, no evidence of delusions or paranoia Cognition: intact to conversational testing A&Ox3 Insight: fair Judgement: poor Psychiatric Review Of Systems: Sleep: yes Appetite changes: no Weight changes: no Energy: no Interest/pleasure/anhedonia: no Somatic symptoms: no Anxiety/panic: yes Guilty/hopeless: no Self-injurious behavior/risky behavior: no Any drugs: yes cocaine Alcohol: no Mental Status Exam: General Observations Appearance and Build: average build Demeanor: Average Eye Contact: Average Activity: Average Speech: normal pitch and normal volume Behavior: cooperative Mood: irritable Affect: normal Thought Process: disorganized at times Thought Content: Delusions: none reported Other: none reported Self Abuse: none reported Aggressive: none reported Cognition: Impairment of: none reported Intelligence Estimate: [place] Sensorium/Orientation: person, place, time/date, and situation Perception: Hallucinations: auditory Other: none reported Insight/Judgment: fair Suicidal intentions: no Suicidal plan: no Physical/Somatic Complaints The patient lists: no physical complaints. Active Problems: No Active Problems: There are no active problems currently on the Problem List. Please update the Problem List and refresh. Objective: Seclusion/Restraint in last 24 hours: No Blood pressure 120/78, pulse 60, resp. rate 17, height 1.575 m (62 ), weight 65.8 kg (145 lb), [id number]%. Lab Results: Results for orders placed or performed during the hospital encounter of 07/07/25 Drug abuse screen 8a panel, urine Collection Time: 07/07/25 9:10 AM Result Value Ref Range Amphetamine Screen, Ur Negative Negative Barbiturate Screen, Ur Negative Negative Benzodiazepine Screen, Ur Negative Negative Cocaine Screen, Ur Positive (A) Negative Opiate Screen, Ur Negative Negative Cannabinoid (THC) Screen, Ur Positive (A) Negative Oxycodone Screen, Ur Negative Negative Fentanyl, Ur Positive (A) Negative Buprenorphine screen, urine Collection Time: 07/07/25 9:10 AM Result Value Ref Range Buprenorphine Screen Urine Negative Negative Phencyclidine, urine Collection Time: 07/07/25 9:10 AM Result Value Ref Range PCP Scrn, Ur Negative Negative Methadone, urine Collection Time: 07/07/25 9:10 AM Result Value Ref Range Methadone Screen, Urine Negative Negative Comprehensive metabolic panel Collection Time: 07/07/25 9:29 AM Result Value Ref Range Sodium 139 133 - 145 mmol/L Potassium 4.2 3.5 - 5.5 mmol/L Chloride 105 96 - 110 mmol/L CO2 28 21 - 32 mmol/L Anion Gap 6 3 - 11 Glucose 70 70 - 100 mg/dL BUN 16 5 - 25 mg/dL Creatinine 0.88 0.50 - 1.10 mg/dL eGFR 84 >=60 mL/min/1.73m2 BUN/Creatinine Ratio 18.2 Calcium 9.4 8.5 - 10.5 mg/dL AST (SGOT) 18 10 - 42 unit/L ALT (SGPT) 18 10 - 60 unit/L Alkaline Phosphatase 64 42 - 121 unit/L Total Protein 7.9 6.0 - 8.0 g/dL Albumin 4.0 3.2 - 5.0 g/dL Total Bilirubin 0.5 0.0 - 1.4 mg/dL Ethanol Collection Time: 07/07/25 9:29 AM Result Value Ref Range Ethanol Level <3 0 - 10 mg/dL Acetaminophen level Collection Time: 07/07/25 9:29 AM Result Value Ref Range Acetaminophen Level <2.0 (L) 10.0 - 30.0 mcg/mL Salicylate level Collection Time: 07/07/25 9:29 AM Result Value Ref Range Salicylate Level <1.7 (L) 2.0 - 29.0 mg/dL CBC auto differential Collection Time: 07/07/25 9:29 AM Result Value Ref Range WBC 4.9 4.8 - 10.8 K/mcL RBC 4.90 (H) 3.80 - 4.80 M/mcL Hemoglobin 12.9 11.5 - 16.0 g/dL Hematocrit 41.7 35.0 - 47.0 % MCV 85.6 79.0 - 98.0 FL MCH 26.5 (L) 27.0 - 32.0 pcg MCHC 30.9 (L) 32.0 - 37.0 g/dL RDW 14.9 11.0 - 15.0 % Platelets 420 (H) 130 - 400 K/mcL MPV 9.8 7.0 - 11.0 FL NRBC 0.0 <1.0 % NRBC Absolute 0.00 <0.10 K/mcL Neutrophils Relative 46.0 % Lymphocytes Relative 36.0 % Monocytes Relative 7.9 % Eosinophils Relative 9.1 % Basophils Relative 0.8 % Immature Granulocytes Relative 0.2 % Neutrophils Absolute 2.26 1.50 - 7.00 K/mcL Lymphocytes Absolute 1.77 1.00 - 5.00 K/mcL Monocytes Absolute 0.39 0.20 - 1.00 K/mcL Eosinophils Absolute 0.45 0.00 - 0.50 K/mcL Basophils Absolute 0.04 0.00 - 0.20 K/mcL Immature Granulocytes Absolute 0.01 0.00 - 0.03 K/mcL Medications: No current facility-administered medications for this encounter. Current Outpatient Medications Medication Sig Dispense Refill risperiDONE (RisperDAL) 2 mg tablet Take 1 tablet (2 mg total) by mouth 1 (one) time each day in the morning. Objective: Seclusion/Restraint in last 24 hours: No Blood pressure 120/78, pulse 60, resp. rate 17, height 1.575 m (62 ), weight 65.8 kg (145 lb), [id number]%. Lab Results: Results for orders placed or performed during the hospital encounter of 07/07/25 Drug abuse screen 8a panel, urine Collection Time: 07/07/25 9:10 AM Result Value Ref Range Amphetamine Screen, Ur Negative Negative Barbiturate Screen, Ur Negative Negative Benzodiazepine Screen, Ur Negative Negative Cocaine Screen, Ur Positive (A) Negative Opiate Screen, Ur Negative Negative Cannabinoid (THC) Screen, Ur Positive (A) Negative Oxycodone Screen, Ur Negative Negative Fentanyl, Ur Positive (A) Negative Buprenorphine screen, urine Collection Time: 07/07/25 9:10 AM Result Value Ref Range Buprenorphine Screen Urine Negative Negative Phencyclidine, urine Collection Time: 07/07/25 9:10 AM Result Value Ref Range PCP Scrn, Ur Negative Negative Methadone, urine Collection Time: 07/07/25 9:10 AM Result Value Ref Range Methadone Screen, Urine Negative Negative Comprehensive metabolic panel Collection Time: 07/07/25 9:29 AM Result Value Ref Range Sodium 139 133 - 145 mmol/L Potassium 4.2 3.5 - 5.5 mmol/L Chloride 105 96 - 110 mmol/L CO2 28 21 - 32 mmol/L Anion Gap 6 3 - 11 Glucose 70 70 - 100 mg/dL BUN 16 5 - 25 mg/dL Creatinine 0.88 0.50 - 1.10 mg/dL eGFR 84 >=60 mL/min/1.73m2 BUN/Creatinine Ratio 18.2 Calcium 9.4 8.5 - 10.5 mg/dL AST (SGOT) 18 10 - 42 unit/L ALT (SGPT) 18 10 - 60 unit/L Alkaline Phosphatase 64 42 - 121 unit/L Total Protein 7.9 6.0 - 8.0 g/dL Albumin 4.0 3.2 - 5.0 g/dL Total Bilirubin 0.5 0.0 - 1.4 mg/dL Ethanol Collection Time: 07/07/25 9:29 AM Result Value Ref Range Ethanol Level <3 0 - 10 mg/dL Acetaminophen level Collection Time: 07/07/25 9:29 AM Result Value Ref Range Acetaminophen Level <2.0 (L) 10.0 - 30.0 mcg/mL Salicylate level Collection Time: 07/07/25 9:29 AM Result Value Ref Range Salicylate Level <1.7 (L) 2.0 - 29.0 mg/dL CBC auto differential Collection Time: 07/07/25 9:29 AM Result Value Ref Range WBC 4.9 4.8 - 10.8 K/mcL RBC 4.90 (H) 3.80 - 4.80 M/mcL Hemoglobin 12.9 11.5 - 16.0 g/dL Hematocrit 41.7 35.0 - 47.0 % MCV 85.6 79.0 - 98.0 FL MCH 26.5 (L) 27.0 - 32.0 pcg MCHC 30.9 (L) 32.0 - 37.0 g/dL RDW 14.9 11.0 - 15.0 % Platelets 420 (H) 130 - 400 K/mcL MPV 9.8 7.0 - 11.0 FL NRBC 0.0 <1.0 % NRBC Absolute 0.00 <0.10 K/mcL Neutrophils Relative 46.0 % Lymphocytes Relative 36.0 % Monocytes Relative 7.9 % Eosinophils Relative 9.1 % Basophils Relative 0.8 % Immature Granulocytes Relative 0.2 % Neutrophils Absolute 2.26 1.50 - 7.00 K/mcL Lymphocytes Absolute 1.77 1.00 - 5.00 K/mcL Monocytes Absolute 0.39 0.20 - 1.00 K/mcL Eosinophils Absolute 0.45 0.00 - 0.50 K/mcL Basophils Absolute 0.04 0.00 - 0.20 K/mcL Immature Granulocytes Absolute 0.01 0.00 - 0.03 K/mcL Medications: No current facility-administered medications for this encounter. Current Outpatient Medications Medication Sig Dispense Refill risperiDONE (RisperDAL) 2 mg tablet Take 1 tablet (2 mg total) by mouth 1 (one) time each day in the morning. Diagnosis/Assessment/Plan: Schizoaffective disorder Cocaine use disorder Narcisa reports mood okay and voices better . Denies thoughts of harming self and requesting assistance with resuming psychotropic medications and connecting with outpatient providers 1) Discussed with team, agree with disposition to follow up in the community, Patient murillo snot meet criteria for inpatient psychiatric hospitalization at this time. 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 Hx of schizophrenia and depression. Has been staying with sister is currently un housed. Calm and cooperative for EMS. * Elizabeth Vargas MD - 07/07/2025 8:51 AM EDT Emergency Medicine Note Patient Name: Narcisa Baptiste Initial Evaluation: 07/07/2025 : 1980 Patient's PCP: No Pcp Physician Emergency Physician: Elizabeth Vargas MD History of Present Illness Chief Complaint: Chief Complaint Patient presents with ??? Suicidal HPI: Patient is a 44-year-old female with a history of schizophrenia, opiate and alcohol use disorder presenting to the emergency department complaining of suicidal ideation. Patient reports she recently lost her psychiatrist and has run out of her medications including Depakote and Haldol. She reports she is now having auditory hallucinations telling her that they are going to pop her she shouldkill herself and she has been considering killing herself but does not have a plan. Denies homicidal ideation. Denies visual hallucinations, traumatic injury. Previous History Past Medical History: Diagnosis Date ??? Schizoaffective disorder (CMS/HCC V24, CMS/HCC V28) DX:Schizoaffective disorder (HCC) History reviewed. No pertinent surgical history. Social History Tobacco Use ??? Smoking status: Every Day Current packs/day: 0.25 Types: Cigarettes ??? Smokeless tobacco: Never Substance Use Topics ??? Alcohol use: Not Currently ??? Drug use: Yes Types: Crack cocaine, Marijuana/Cannabis Family History Problem Relation Name Age of Onset ??? No Known Problems Mother ??? No Known Problems Father is allergic to haldol [haloperidol] and seroquel [quetiapine]. No current facility-administered medications on file prior to encounter. Current Outpatient Medications on File Prior to Encounter Medication Sig Dispense Refill ??? risperiDONE (RisperDAL) 2 mg tablet Take 1 tablet (2 mg total) by mouth 1 (one) time each day in the morning. Physical Exam ED Triage Vitals [07/07/25 0859] Temp Heart Rate Resp BP -- 60 17 120/78 SpO2 Temp src Heart Rate Source Patient Position 100 % -- Radial Sitting BP Location FiO2 (%) Right arm -- GENERAL: Well-Appearing SKIN: Warm, dry, normal for ethnicity. No rashes. HEENT: Normal sclera, noninjected nonicteric CHEST: Normal peripheral perfusion, no edema PULMONARY: Normal respiratory effort ABDOMINAL: Nondistended NEURO: Alert and oriented, moving all extremities equally PSYCHIATRIC: Normal affect, fluid speech, good eye contact and appropriate demeanor. Results Labs Reviewed ACETAMINOPHEN LEVEL - Abnormal Result Value Acetaminophen Level <2.0 (*) SALICYLATE LEVEL - Abnormal Salicylate Level <1.7 (*) DRUG ABUSE SCREEN 8A PANEL, URINE - Abnormal Amphetamine Screen, Ur Negative Barbiturate Screen, Ur Negative Benzodiazepine Screen, Ur Negative Cocaine Screen, Ur Positive (*) Opiate Screen, Ur Negative Cannabinoid (THC) Screen, Ur Positive (*) Oxycodone Screen, Ur Negative Fentanyl, Ur Positive (*) Narrative: Assay cutoffs: Amphetamines 1000 ng/mL Barbiturates 200 ng/mL Benzodiazepines 200 ng/mL Cocaine 300 ng/mL Fentanyl 1 ng/mL Opiates 300 ng/mL Oxycodone 100 ng/mL THC 50 ng/mL Semi-quantitative assay for screening purposes only. Unconfirmed screening result should not be used for non-medical purposes. *ALTERNATE METHOD CONFIRMATION DONE UPON REQUEST ONLY* CBC WITH AUTO DIFFERENTIAL - Abnormal WBC 4.9 RBC 4.90 (*) Hemoglobin 12.9 Hematocrit 41.7 MCV 85.6 MCH 26.5 (*) MCHC 30.9 (*) RDW 14.9 Platelets 420 (*) MPV 9.8 NRBC 0.0 NRBC Absolute 0.00 Neutrophils Relative 46.0 Lymphocytes Relative 36.0 Monocytes Relative 7.9 Eosinophils Relative 9.1 Basophils Relative 0.8 Immature Granulocytes Relative 0.2 Neutrophils Absolute 2.26 Lymphocytes Absolute 1.77 Monocytes Absolute 0.39 Eosinophils Absolute 0.45 Basophils Absolute 0.04 Immature Granulocytes Absolute 0.01 COMPREHENSIVE METABOLIC PANEL - Normal Sodium 139 Potassium 4.2 Chloride 105 CO2 28 Anion Gap 6 Glucose 70 BUN 16 Creatinine 0.88 eGFR 84 BUN/Creatinine Ratio 18.2 Calcium 9.4 AST (SGOT) 18 ALT (SGPT) 18 Alkaline Phosphatase 64 Total Protein 7.9 Albumin 4.0 Total Bilirubin 0.5 ETHANOL - Normal Ethanol Level <3 BUPRENORPHINE SCREEN, URINE - Normal Buprenorphine Screen Urine Negative Narrative: Assay cutoff 5 ng/mL Semi-quantitative assay for screening purposes only. Unconfirmed screening result should not be used for non-medical purposes. *ALTERNATE METHOD CONFIRMATION DONE UPON REQUEST ONLY* PHENCYCLIDINE, URINE - Normal PCP Scrn, Ur Negative METHADONE SCREEN, URINE - Normal Methadone Screen, Urine Negative CBC AND DIFFERENTIAL Narrative: The following orders were created for panel order CBC and differential. Procedure Abnormality Status --------- ------ CBC auto differential[[id number]] Abnormal Final result Please view results for these tests on the individual orders. Abnormal Labs Reviewed ACETAMINOPHEN LEVEL - Abnormal; Notable for the following components: Result Value Acetaminophen Level <2.0 (*) All other components within normal limits SALICYLATE LEVEL - Abnormal; Notable for the following components: Salicylate Level <1.7 (*) All other components within normal limits DRUG ABUSE SCREEN 8A PANEL, URINE - Abnormal; Notable for the following components: Cocaine Screen, Ur Positive (*) Cannabinoid (THC) Screen, Ur Positive (*) Fentanyl, Ur Positive (*) All other components within normal limits Narrative: Assay cutoffs: Amphetamines 1000 ng/mL Barbiturates 200 ng/mL Benzodiazepines 200 ng/mL Cocaine 300 ng/mL Fentanyl 1 ng/mL Opiates 300 ng/mL Oxycodone 100 ng/mL THC 50 ng/mL Semi-quantitative assay for screening purposes only. Unconfirmed screening result should not be used for non-medical purposes. *ALTERNATE METHOD CONFIRMATION DONE UPON REQUEST ONLY* CBC WITH AUTO DIFFERENTIAL - Abnormal; Notable for the following components: RBC 4.90 (*) MCH 26.5 (*) MCHC 30.9 (*) Platelets 420 (*) All other components within normal limits No orders to display I have discussed the incidental/abnormal imaging and/or lab abnormalities with the patient and haveinstructed them the need for further evaluation and workup with their primary care doctor. I have provided the patient with a paper copy of the abnormality. The laboratory results, imaging results and other diagnostic exam results were reviewed in the EMR. Medical Decision Making Differential Diagnosis: Schizophrenia, suicidal ideation, depression, polysubstance use MDM: Patient presents to the emergency department complaining of suicidal ideation. Patient also has auditory hallucinations consistent with schizophrenia and reports she is unmedicated. Will reorderhome medications and asked psychiatry to evaluate patient. She is contracted for safety in the ED. Clinical Impression: [mild/severe acute/chronic] SEPSIS Exemption: [ x ] It is unlikely this patient has sepsis at the time of my evaluation. 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 Patient feels comfortable with this and has contracted for safety. Patient will be discharged once these medications are prescribed. [AD] 1524 Outpatient medications have been ordered and she has been given resources for outpatient psychiatric providers. Patient has contracted for safety and denies suicidal or homicidal ideation. Will discharge home with PCP follow-up and strict return precautions. [AD] ED Course User Index [AD] Elizabeth Vargas MD Clinical Impressions as of 07/07/25 1525 Schizophrenia, unspecified type ([facility] V24, [facility] V28) Procedures Procedures Diagnosis No diagnosis found. 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 Behavioral Health Services - Crisis Assessment Important times Time of arrival: 07/07/25 8:51 am Time of referral: 07/07/25 8: 55 am Time of readiness: 07/07/25 10:34 am Time assessment started: 07/07/25 11:00 am Time of disposition: 07/07/25 12:00 pm Location: [facility] Emergency Department Consulted case with: Roseann Stoner LCSW Insurance information: Insurance: Medicare A&B Verified by: Nicolle Reason for Consultation / Presenting Problem: Narcisa Baptiste is being seen today for a consultive service at the request of Elizabeth Vargas MD to assess risk and identify appropriate level of care. Patient is a 44-year-old female with a history of schizophrenia, opiate and alcohol use disorder presenting to the emergency department complaining of suicidal ideation. Patient reports she recently lost her psychiatrist and has run out of her medications including Depakote and Haldol. She reports she is now having auditory hallucinations telling her that they are going to pop her she should kill herself and she has been considering killing herself but does not have a plan. Denies homicidal id eation. Denies visual hallucinations, traumatic injury. Narcisa stated I was staying with my sister and she told me to get out cause she was mad at me . She stated I am getting my own place through [facility] on , it is called the [employer] program .She stated I ran out of my medications a few days ago . She reported I guess I could call my sister and see if I can go there until next week . She stated I guess I can also stay at the living room . History of Present Illness: Narcisa is a 44 y.o. female with Chief Complaint Patient presents with Suicidal Social/Educational History: Guardian - if Yes, provide contact information: Self [place] Status: N/A State Agency Involvement: None Valeriy's Order: None reported Marital Status: Single Alternative Placement Details: None Living Situation for patient: Moving next week to her own apartment. Household Members/Age: N/A Friendships/Family/Social Peer Support/Relationships: Narcisa stated she has some friends. Highest level of education: 11th grade Comments (Include Learning Needs): None Occupation: Unemployed Employment/Extracurricular Activities/Hobbies: Unemployed Limitations of Daily Activities: None reported Strengths/Supports: None reported Collaterals, contact information, and engagement level: Therapist: None reported Psychiatrist: None reported PCP: None reported Family: Father Irineo Baptiste [phone] Mental Status Speech: WNL Eye Contact: WNL Motor Activity: WNL Mood: Stable Affect: Flat Sleep: WNL Appetite: WNL Memory: WNL Attention / Concentration: WNL Behavior: Cooperative Appearance: Hallucinations: Auditory Delusions: None Thought Content: WNL SI: Denied HI: Denied Thought Process: Goal oriented Orientation Impairment: None Insight: Fair Judgment: Fair Impulse Control: WNL Substance Use History (Including family history): Alcohol onset age 21, 1 x week. Last use last week. Cocaine onset age 31, sporadic, smoke. Last use 2 days ago. Narcisa denies using fentanyl Utox Results: TOX positive for cocaine cannabis and fentanyl Substance Use Treatment History: Narcisa has a history of detox admissions. She has also had a history of rehab admissions. Mental Health Treatment History: Outpatient Mental Health Treatment: No current outpatient providers. Previous or Current Psychological Diagnosis: Schizoaffective D/O, cocaine and alcohol use. Prior Psychiatric Hospitalizations/Residential Treatment Facilities: Narcisa is known to to [facility]. She reported one suicide attempt a long times ago when she overdosed. Narcisa has a long history of inpatient psychiatric admissions Other Comments Regarding Mental Health Treatment History: None reported Mental Health Concerns in Family: None reported Trauma History: Narcisa denies any history of sexual abuse or other trauma. Medications: Scheduled Meds: Continuous Infusions: PRN Meds: Risk Assessment: Self-Harm: None Suicidal Behavior: None Homicidal Behavior: None Physical Assault: None Physical Aggression: None Property Damage: None Verbal Aggression: None Family history of suicide: None reported Protective Factors: Narcisa is able to access her needs. Risk Factors: Non-compliant with treatment Lack of supports Chronic substance use. Suicide Risk: Based on patient's history and current presentation, their level of risk for intentional lethal harm is considered Low Safety Plan Completed: yes Has a safety plan to stay with her sister until she moves to her apartment next week. Has a list ofproviders in the area she is moving to. Interventions: Used active listening and brief crisis intervention. Response to interventions: Narcisa was responsive. DSM-5TR Diagnosis: F25.0 Schizoaffective D/O Bipolar Type F14.20 Cocaine use, severe Plan: Eugene is at low risk for suicidal or homicidal plan and intent. She reported she is moving into [place]rown apartment next week in [place], [place]. She stated she has been staying with her sister. [facility] Nursepractitioner called in her medications to the pharmacy to to get her through the week until so she can set up and appointment with outpatient treatment. She has a list of providers and resources. Recommendations were discussed with requesting provider. It was a pleasure to assist Narcisa Baptiste here at [facility]. This report is written and finalized by: Misti Chavez MS Behavioral Health Specialist [facility] (Tel): [phone] / : [phone] documented in this encounter Plan of Treatment Not on file documented as of this encounter Procedures Procedure Name Priority Date/Time Associated Diagnosis Comments CBC WITH AUTO DIFFERENTIAL STAT 07/07/2025 9:29 AM EDT CBC AND DIFFERENTIAL STAT 07/07/2025 9:29 AM EDT ETHANOL STAT 07/07/2025 9:29 AM EDT ACETAMINOPHEN LEVEL STAT 07/07/2025 9 :29 AM EDT SALICYLATE LEVEL STAT 07/07/2025 9:29 AM EDT COMPREHENSIVE METABOLIC PANEL STAT 07/07/2025 9:29 AM EDT DRUG ABUSE SCREEN 8A PANEL, URINE STAT 07/07/2025 9:10 AM EDT BUPRENORPHINE SCREEN, URINE STAT 07/07/2025 9:10 AM EDT METHADONE SCREEN, URINE STAT 07/07/2025 9:10 AM EDT PHENCYCLIDINE, URINE STAT 07/07/2025 9:10 AM EDT documented in this encounter Results * (ABNORMAL) CBC auto differential (07/07/2025 9:29 AM EDT) [facility] WBC 4.9 4.8 - 10.8 K/mcL LAB HEMETOLOGY METHOD 07/07/2025 10:15 AM [facility] RBC 4.90(H) 3.80 - 4.80 M/mcL LAB HEMETOLOGY METHOD 07/07/2025 10:15 AM [facility] Hemoglobin 12.9 11.5 - 16.0 g/dL LAB HEMETOLOGY METHOD 07/07/2025 10:15 AM [facility] Hematocrit 41.7 35.0 - 47.0 % LAB HEMETOLOGY METHOD 07/07/2025 10:15 AM [facility] MCV 85.6 79.0 - 98.0 FL LAB HEMETOLOGY METHOD 07/07/2025 10:15 AM [facility] MCH 26.5(L) 27.0 - 32.0 pcg LAB HEMETOLOGY METHOD 07/07/2025 10:15 AM [facility] MCHC 30.9(L) 32.0 - 37.0 g/dL LAB HEMETOLOGY METHOD 07/07/2025 10:15 AM [facility] RDW 14.9 11.0 - 15.0 % LAB HEMETOLOGY METHOD 07/07/2025 10:15 AM [facility] Platelets 420(H) 130 - 400 K/mcL LAB HEMETOLOGY METHOD 07/07/2025 10:15 AM [facility] MPV 9.8 7.0 - 11.0 FL LAB HEMETOLOGY METHOD 07/07/2025 10:15 AM [facility] NRBC 0.0 <1.0 % LAB HEMETOLOGY METHOD 07/07/2025 10:15 AM [facility] NRBC Absolute 0.00 <0.10 K/mcL LAB HEMETOLOGY METHOD 07/07/2025 10:15 AM EDT [facility] Neutrophils Relative 46.0 % LAB HEMETOLOGY METHOD 07/07/2025 10:15 AM EDT [facility] Lymphocytes Relative 36.0 % LAB HEMETOLOGY METHOD 07/07/2025 10:15 AM EDT [facility] Monocytes Relative 7.9 % LAB HEMETOLOGY METHOD 07/07/2025 10:15 AM EDT [facility] Eosinophils Relative 9.1 % LAB [facility] Basophils Relative 0.8 % LAB HEMETOLOGY METHOD 07/07/2025 10:15 AM [facility] Immature Granulocytes Relative 0.2 % LAB HEMETOLOGY METHOD 07/07/2025 10:15 AM [facility] Neutrophils Absolute 2.26 1.50 - 7.00 K/mcL LAB HEMETOLOGY METHOD 07/07/2025 10:15 AM T [facility] Lymphocytes Absolute 1.77 1.00 - 5.00 K/mcL LAB HEMETOLOGY METHOD 07/07/2025 10:15 AM [facility] Monocytes Absolute 0.39 0.20 - 1.00 K/mcL LAB HEMETOLOGY METHOD 07/07/2025 10:15 AM EDT [facility] Eosinophils Absolute 0.45 0.00 - 0.50 K/mcL LAB HEMETOLOGY METHOD 07/07/2025 10:15 AM EDT [facility] Basophils Absolute 0.04 0.00 - 0.20 K/mcL LAB HEMETOLOGY METHOD 07/07/2025 10:15 AM [facility] Immature Granulocytes Absolute 0.01 0.00 - 0.03 K/mcL LAB HEMETOLOGY METHOD 07/07/2025 10:15 AM EDT [facility] Blood Venous blood specimen / Unknown Venipuncture / Unknown 07/07/2025 9:29 AM EDT 07/07/2025 9:54 AM EDT us Elizabeth Vargas MD LAB BLOOD ORDERABLES Final Res ult Performing Organization Address City/[facility]/ZIP Co de Phone Number [facility] [address] [place] [address], [place] [phone] * (ABNORMAL) Salicylate level (07/07/2025 9:29 AM EDT) Salicylate Level <1.7(L) 2.0 - 29.0 mg/dL LAB CHEMISTRY METHOD 07/07/2025 10:33 AM EDT [facility] Blood Venous blood specimen / Unknown Venipuncture / Unknown 07/07/2025 9:29 AM EDT 07/07/2025 9:54 AM EDT us Elizabeth Vargas MD LAB BLOOD ORDERABLES Final Res ult Performing Organization Address [facility] de Phone Number [facility] [address] [place] [address], [place] [phone] * (ABNORMAL) Acetaminophen level (07/07/2025 9:29 AM EDT) Acetaminophen Level <2.0(L) 10.0 - 30.0 mcg/mL LAB CHEMISTRY METHOD 07/07/2025 10:33 AM EDT [facility] Blood Venous blood specimen / Unknown Venipuncture / Unknown 07/07/2025 9:29 AM EDT 07/07/2025 9:54 AM EDT us Elizabeth Vargas MD LAB BLOOD ORDERABLES Final Res ult Performing Organization Address City/[facility] Co de Phone Number [facility] [address] [place] [address], [place] [phone] * Ethanol (07/07/2025 9:29 AM EDT) [facility] Ethanol Level <3 0 - 10 mg/dL LAB CHEMISTRY METHOD 07/07/2025 10:33 AM T [facility] Blood Venous blood specimen / Unknown Venipuncture / Unknown 07/07/2025 9:29 AM EDT 07/07/2025 9:54 AM EDT us Elizabeth Vargas MD LAB BLOOD ORDERABLES Final Res ult [facility] [address] [place] [address], [place] [phone] * Comprehensive metabolic panel (07/07/2025 9:29 AM EDT) [facility] Sodium 139 133 - 145 mmol/L LAB CHEMISTRY METHOD 07/07/2025 10:44 AM [facility] Potassium 4.2 3.5 - 5.5 mmol/L LAB CHEMISTRY METHOD 07/07/2025 10:44 AM [facility] Chloride 105 96 - 110 mmol/L LAB CHEMISTRY METHOD 07/07/2025 10:44 AM [facility] CO2 28 21 - 32 mmol/L LAB CHEMISTRY METHOD 07/07/2025 10:44 AM [facility] Anion Gap 6 3 - 11 LAB CHEMISTRY METHOD 07/07/2025 10:44 AM [facility] Glucose 70 70 - 100 mg/dL LAB CHEMISTRY METHOD 07/07/2025 10:44 AM [facility] BUN 16 5 - 25 mg/dL LAB CHEMISTRY METHOD 07/07/2025 10:44 AM [facility] Creatinine 0.88 0.50 - 1.10 mg/dL LAB CHEMISTRY METHOD 07/07/2025 10:44 AM [facility] eGFR 84 >=60 mL/min/1. 73m2 LAB CHEMISTRY METHOD 07/07/2025 10:44 AM [facility] Comment:Calculation based on the Chronic Kidney Disease Epidemiology Collaboration (CKD-EPI) equation refit without adjustment for race. BUN/Creatinine Ratio 18.2 LAB CHEMISTRY METHOD 07/07/2025 10:44 AM [facility] Calcium 9.4 8.5 - 10.5 mg/dL LAB CHEMISTRY METHOD 07/07/2025 10:44 AM [facility] AST (SGOT) 18 10 - 42 unit/L LAB CHEMISTRY METHOD 07/07/2025 10:44 AM [facility] ALT (SGPT) 18 10 - 60 unit/L LAB CHEMISTRY METHOD 07/07/2025 10:44 AM [facility] Alkaline Phosphatase 64 42 - 121 unit/L LAB CHEMISTRY METHOD 07/07/2025 10:44 AM [facility] Total Protein 7.9 6.0 - 8.0 g/dL LAB CHEMISTRY METHOD 07/07/2025 10:44 AM [facility] Albumin 4.0 3.2 - 5.0 g/dL LAB CHEMISTRY METHOD 07/07/2025 10:44 AM [facility] Total Bilirubin 0.5 0.0 - 1.4 mg/dL LAB CHEMISTRY METHOD 07/07/2025 10:44 AM [facility] Comment:Results verified by repeat testing Blood Venous blood specimen / Unknown Venipuncture / Unknown 07/07/2025 9:29 AM EDT 07/07/2025 9:54 AM EDT us Elizabeth Vargas MD LAB BLOOD ORDERABLES Final Res ult [facility] [address] [place] [address], [place] [phone] * Methadone, urine (07/07/2025 9:10 AM EDT) Methadone Screen, Urine Negative Negative LAB CHEMISTRY METHOD 07/07/2025 9:55 AM EDT [facility] Comment: Assay cutoff 300 ng/mL Semi-quantitative assay for screening purposes only. Unconfirmed screening result should not be used for non-medical purposes. *ALTERNATE METHOD CONFIRMATION DONE UPON REQUEST ONLY* Urine Urine specimen obtained by clean catch procedure / Unknown Non-blood Collection / Unknown 07/07/2025 9:10 AM EDT 07/07/2025 9:23 AM EDT us Elizabeth Vargas MD LAB URINE ORDERABLES Final Res ult Performing Organization Address [facility]/ZIP Co de Phone Number [facility] [address] [place] [address], * Phencyclidine, urine (07/07/2025 9:10 AM EDT) PCP Scrn, Ur Negative Negative LAB CHEMISTRY METHOD 07/07/2025 9:55 AM EDT [facility] Comment: Assay cutoff 25 ng/mL Semi-quantitative assay for screening purposes only. Unconfirmed screening result should not be used for non-medical purposes. *ALTERNATE METHOD CONFIRMATION DONE UPON REQUEST ONLY* Urine Urine specimen obtained by clean catch procedure / Unknown Non-blood Collection / Unknown 07/07/2025 9:10 AM EDT 07/07/2025 9:23 AM EDT us Elizabeth Vargas MD LAB URINE ORDERABLES Final Res ult Performing Organization Address City/[facility]/ZIP Co de Phone Number [facility] [address] [place] [address], [place] [phone] * Buprenorphine screen, urine (07/07/2025 9:10 AM EDT) Buprenorphine Screen Urine Negative Negative LAB CHEMISTRY METHOD 07/07/2025 9:55 AM [facility] Urine Urine specimen obtained by clean catch procedure / Unknown Non-blood Collection / Unknown 07/07/2025 9:10 AM EDT 07/07/2025 9:23 AM EDT Narrative [facility] - 07/07/2025 9:55 AM EDT Assay cutoff 5 ng/mL Semi-quantitative assay for screening purposes only. Unconfirmed screening result should not be used for non-medical purposes. *ALTERNATE METHOD CONFIRMATION DONE UPON REQUEST ONLY* us Elizabeth Vargas MD LAB URINE ORDERABLES Final Res ult [facility] [address] [place] [address], [place] [phone] * (ABNORMAL) Drug abuse screen 8a panel, urine (07/07/2025 9:10 AM EDT) [facility] Signature Amphetamine Screen, Ur Negative Negative LAB CHEMISTRY METHOD 5 10:06 AM [facility] Comment:Certain OTC medicati ons containing ephedrine, phenylephrine, pseudoephedrine and phenylpropanolamine can cause false positive results. Barbiturate Screen, Ur Negative Negative LAB CHEMISTRY METHOD 5 10:06 AM [facility] Benzodiazepine Screen, Ur Negative Negative LAB CHEMISTRY METHOD 5 10:06 AM [facility] Cocaine Screen, Ur Positive(A ) Negative LAB CHEMISTRY METHOD 5 10:06 AM [facility] Opiate Screen, Ur Negative Negative LAB CHEMISTRY METHOD 5 10:06 AM [facility] Cannabinoid (THC) Screen, Ur Positive(A ) Negative LAB CHEMISTRY METHOD 5 10:06 AM [facility] Comment:Specimens from patie nts taking pantoprazole sodium (Protonix) have been shown to produce false positive results. Oxycodone Screen, Ur Negative Negative LAB CHEMISTRY METHOD 10:06 AM EDT [facility] Fentanyl, Ur Positive(A ) Negative LAB CHEMISTRY METHOD 10:06 AM T [facility] Urine Urine specimen obtained by clean catch procedure / Unknown Non-blood Collection / Unknown 07/07/2025 9:10 AM EDT 07/07/2025 9:23 AM EDT Narrative [facility] - 07/07/2025 10:06 AM EDT Assay cutoffs: Amphetamines 1000 ng/mL Barbiturates 200 ng/mL Benzodiazepines 200 ng/mL Cocaine 300 ng/mL Fentanyl 1 ng/mL Opiates 300 ng/mL Oxycodone 100 ng/mL THC 50 ng/mL Semi-quantitative assay for screening purposes only. Unconfirmed screening result should not be used for non-medical purposes. *ALTERNATE METHOD CONFIRMATION DONE UPON REQUEST ONLY* us Elizabeth Vargas MD LAB URINE ORDERABLES Final Res ult [facility] [address] [place] [address], documented in this encounter Visit Diagnoses Diagnosis Schizophrenia, unspecified type (CMS/HCC V24, CMS/HCC V28)- Primary documented in this encounter Orders Consult Count Last Ordered Date First Orde red Date IP CONSULT TO COLOR SPRAYER 1 07/07/2025 documented in this encounter Care Teams Barman Relationship Specialty Start Date End Date Physician, No Pcp PCP - General 03/01/25 documented as of this encounter
--- OUTSIDE RECORDS SUMMARY | 2025-07-12 12:09 | XMS_ITS | Encounter Summary ---
Author Organization [facility] Address [address] [place] [address] Care Team Providers Care Maintenance Planning Clerk Name Role Phone Physician, No Pcp Primary Care Provider Unavaila ble Reason for Visit * Reason Comments Psychiatric Evaluation Encounter Details Date Type Department Care Team (Late st Contact Info) Description 07/12/2025 12:09 PM EDT - 07/12/2025 3:[address] [facility] Emergency [address] [place] [id number] Elizabeth Vargas MD [address] [place] [address] Depression, unspecified depression type (Primary Dx); Schizoaffective disorder, unspecified type ([facility] V24, [facility] V28) Discharge Disposition: Home or Self Care Social [...] Sign Reading Time Taken Comments Blood Pressure 101/64 07/12/2025 12:02 PM EDT Pulse 60 07/12/2025 12:02 PM EDT Temperature 36.8 C (98.2 F) 07/12/2025 12:02 PM EDT Respiratory Rate 20 07/12/2025 12:02 PM EDT Oxygen Saturation 98% 07/12/2025 12:02 PM EDT Inhaled Oxygen Concentration - - Weight 59 kg (130 lb) 07/12/2025 12:02 PM EDT Height 157.5 cm (5' 2 ) 07/12/2025 12:02 PM EDT Body Mass Index 23.78 07/12/2025 12:02 PM EDT documented in this encounter Functional Status [...] * Discharge Instructions* Elizabeth Vargas MD - 07/12/2025 2:32 PM EDT You were seen and evaluated in the emergency department hearing voices and having thoughts of harming yourself. You were evaluated by crisis who reports you are not eligible for inpatient admission. They spoke with your family and yourself and feel you are safe for discharge with your outpatient resources. Continue to take your home medications and return to the emergency department with new or worsening symptoms including thoughts of harming yourself or others. * Attachments The following attachments cannot be sent through Care Everywhere. * Mental Health Crisis: Getting Help: General Info (Mongolian) documented in this encounter Medications at Time of Discharge risperiDONE (RisperDAL) 2 mg tablet Take 1 tablet (2 mg total) by mouth 1 (one) time each day in the morning. 02/01/2025 documented as of this encounter Discharge Disposition Disposition Code Departure Means Destination Comment s Home or Self Care documented in this encounter Progress Notes * Kristen Rodriguez RN - 07/12/2025 2:50 PM EDT Pt discharged, she is laying on floor in room D yelling at staff I have tourettes! How am I suppose to be out there like this? Then continues to scream yooooo very loudly. She was given her clothing and changed herself in bathroom, quietly. She then began to yell more as she exited bathroom andwas escorted off hospital property. Kristen Rodriguez RN 07/12/25 4244 * Kristen Rodriguez RN - 07/12/2025 2:40 PM EDT Bhn in room with patient, pt is screaming at [facility] while patient is sitting on edge of bed and n atdoorway, pt more and more agitated and she charged at [facility] worker, [facility] worker was able to close doorand did not make physical contact with patient. Kristen Rodriguez RN 07/12/25 7129 * Kristen Rodriguez RN - 07/12/2025 2:29 PM EDT Pt out to desk asking for cranberry juice. Kristen Rodriguez RN 07/12/25 4296 * Kristen Rodriguez RN - 07/12/2025 2:27 PM EDT Pt yelling out in room, this rn in room attempting to redirect patient. Pt stopped yelling out. Kristen Rodriguez RN 07/12/25 1449 * Kristen Rodriguez RN - 07/12/2025 2:16 PM EDT Pt screaming YYOOOOO! From her room while laying on the bed. She is aware that she cannot be yelling. She continues to yell I HAVE TOURETTE'S Kristen Rodriguez RN 07/12/25 1433 * Maria Victoria Klein RN - 07/12/2025 11:58 AM EDT Pt comes to ED due to hearing voices. Patient sts she was here recently seen here for SI but was able to be discharged home and given prescriptions (per pt). Pt admits to feeling like she would harm herself while in triage. Pt denies any plan. Pt sts I can't leave while hearing voices, Ill run outside, Ill do drugs, Ill do anything. She sts she doesn't currently have a provider to prescribe her meds. Pt thinks she needs a psych med that helps to prevent her from hearing voices but sts we willnot prescribe this for her. Pt sts she doesn't know the name of the med. Pt lives with her sister right now but sts her sister doesn't want her to live there. Pt admits to using smoking cocaine and drinking alcohol last night. * Elizabeth Vargas MD - 07/12/2025 11:57 AM EDT Emergency Medicine Note Patient Name: Narcisa Baptiste Initial Evaluation: 07/12/2025 : 1980 Patient's PCP: No Pcp Physician Emergency Physician: Elizabeth Vargas MD History of Present Illness Chief Complaint: Chief Complaint Patient presents with ??? Psychiatric Evaluation HPI: Patient is a 44-year-old female with a history of schizophrenia, alcohol and cocaine use disorder presenting to the emergency department with suicidal ideation and auditory hallucinations. Patient reports she has been hearing voices telling her to kill her self and she is worried that she willdo this if she does not get inpatient help. Patient was in the emergency department recently and outpatient medications were ordered by psychiatry and she reports taking these medications as directedwithout help. Reports drinking alcohol and using cocaine yesterday. Denies any visual hallucinations, suicide attempts currently or homicidal ideation. Previous History Past Medical History: Diagnosis Date ??? Schizoaffective disorder ([facility] V24, [facility] V28) DX:Schizoaffective disorder ([facility]) ??? Substance abuse ([facility] V24, [facility] V28) ??? Tourette's History reviewed. No pertinent surgical history. Social History Tobacco Use ??? Smoking status: Every Day Current packs/day: 0.25 Types: Cigarettes ??? Smokeless tobacco: Never Substance Use Topics ??? Alcohol use: Not Currently ??? Drug use: Yes Types: Crack cocaine, Marijuana/Cannabis Family History Problem Relation Name Age of Onset ??? No Known Problems Mother ??? No Known Problems Father is allergic to seroquel [quetiapine]. No current facility-administered medications on file prior to encounter. Current Outpatient Medications on File Prior to Encounter Medication Sig Dispense Refill ??? risperiDONE (RisperDAL) 2 mg tablet Take 1 tablet (2 mg total) by mouth 1 (one) time each day in the morning. Physical Exam ED Triage Vitals [07/12/25 1202] Temp Heart Rate Resp BP 36.8 ??C (98.2 ??F) 60 20 101/64 SpO2 Temp Source Heart Rate Source Patient Position 98 % Oral -- Sitting BP Location FiO2 (%) Right arm -- GENERAL: poor hygiene SKIN: Warm, dry, normal for ethnicity. No rashes. HEENT: Normal sclera, noninjected nonicteric, extraocular movements intact CHEST: Normal peripheral perfusion, no edema PULMONARY: Normal respiratory effort ABDOMINAL: Nondistended NEURO: Alert and oriented, moving all extremities equally PSYCHIATRIC: Normal affect, fluid speech, good eye contact and appropriate demeanor. Suicidal. Results Labs Reviewed ACETAMINOPHEN LEVEL - Abnormal [...] CBC WITH AUTO DIFFERENTIAL - Abnormal WBC 6.0 RBC 4.30 Hemoglobin 11.5 Hematocrit 35.7 MCV 83.8 MCH 27.0 MCHC 32.2 RDW 14.6 Platelets 421 (*) MPV 9.8 NRBC 0.0 NRBC Absolute 0.00 Neutrophils Relative 43.8 Lymphocytes Relative 37.2 Monocytes Relative 7.5 Eosinophils Relative 10.5 Basophils Relative 0.8 Immature Granulocytes Relative 0.2 Neutrophils Absolute 2.62 Lymphocytes Absolute 2.23 Monocytes Absolute 0.45 Eosinophils Absolute 0.63 (*) Basophils Absolute 0.05 Immature Granulocytes Absolute 0.01 COMPREHENSIVE METABOLIC PANEL - Normal Sodium 142 Potassium 4.4 Chloride 107 CO2 29 Anion Gap 6 Glucose 81 BUN 10 Creatinine 0.90 eGFR 82 BUN/Creatinine Ratio 11.1 Calcium 9.2 AST (SGOT) 12 ALT (SGPT) 14 Alkaline Phosphatase 55 Total Protein 6.7 Albumin 3.5 Total Bilirubin 0.4 ETHANOL - Normal Ethanol Level <3 BUPRENORPHINE [...] Procedure Abnormality Status --------- ------ CBC auto differential[[id number]] Abnormal Final result Please view results for [...] - Abnormal; Notable for the following components: Platelets 421 (*) Eosinophils Absolute 0.63 (*) All other components within normal limits [...] the EMR. Medical Decision Making Differential Diagnosis: Schizophrenia MDM: Patient presents to the emergency department complaining of auditory hallucinations consistentwith past schizophrenia as well as suicidal ideation. Patient has contracted for safety in the ED. Will ask psychiatry to evaluate her. CBC for anemia, electrolytes for derangement Will keep on CIWA given history of alcohol use disorder. SEPSIS Exemption: [ x ] It is unlikely this patient has sepsis at the time of my evaluation. Medications - No data to display ED Course as of 07/12/25 1432 Mon Jul 12, 2025 143 Patient was evaluated by crisis who reports she is not eligible for inpatient psychiatric placement. Patient has history of saying she will harm herself with drugs but has not made any suicide attempts in the past and is a low risk for this. Patient now asa for safety saying she is no longer suicidal. Will discharge home with outpatient providers and PCP follow-up. [AD] ED Course User Index [AD] Elizabeth Vargas MD Clinical Impressions as of 07/12/25 1432 Depression, unspecified depression type Schizoaffective disorder, unspecified type ([facility] V24, [facility] V28) Procedures Procedures Diagnosis No diagnosis found. Disposition Data Unavailable ED Prescriptions None Elizabeth Vargas MD 07/12/25 1221 Elizabeth Vargas MD 07/12/25 1431 Elizabeth Vargas MD 07/12/25 1431 documented in this encounter Consult Notes * John Carvalho - 07/12/2025 2:41 PM EDTAssociated Order(s): IP CONSULT TO POLYSOMNOGRAPHIC TECHNOLOGIST Images from the original note were not included. Behavioral Health Services - Crisis Assessment Important times Time of arrival: 12:09 Time of referral: 12:17 Time of readiness: 13:25 Time assessment started: 13:30 Time of disposition: 14:30 Location: Emergency Room (ER) Consulted case with: Roseann Stoner LCSW Insurance information: Insurance: Medicare A&B Verified by: [facility] [place] - John Carvalho Reason for Consultation / Presenting Problem: Narcisa Baptiste is being seen today for a consultive service at the request of Elizabeth Vargas MD to assess risk and identify appropriate level of care. Patient arrived reporting that she felt as though she was going to harm herself and had used cocaine and alcohol yesterday. During assessment, patient stated that she has to wait 2-3 weeks until she is able to go to her new apartment and her sister told her she is not welcome at her sister's anymore. Patient reported that if she discharges, she will hurt herself. When asked what she would do, patient stated that she would use drugs or hit herself. BHS spoke with dad over the phone who said that he does not feel patient will try to hurt or kill herself, just that she will use substances upondischarge from hospital. Patient reported that she is having AH and would like different medications. BHS began exploring substances increasing patient's AH, which patient agreed with. Patient denied HI. Upon being told that she is safe to discharge, patient began screaming, stating that she has tourette's, and yelling where am I going to go? When S began to identify options for patient, she began screaming again and charged towards S. History of Present Illness: Narcisa is a 44 y.o. female with Chief Complaint Patient presents with Psychiatric Evaluation Social/Educational History: Guardian - if Yes, provide contact information: No [employer] Status: No State Agency Involvement: None Valeriy's Order: No Marital Status: Single Alternative Placement Details: None Living Situation for patient: Homeless - Patient reported that she was supposed to get her new apartment through [employer] tomorrow, however [employer] has not paid the rent yet and patient will need to wait another 2-3 weeks until she is able to move in. Household Members/Age: Patient is unhoused. She was staying with her sister but reportedly her sister said patient is not welcome at sister's house again. Friendships/Family/Social Peer Support/Relationships: Previous assessment reports that patient has some friends. Highest level of education: 11th grade Comments (Include Learning Needs): None Occupation: Disabled/Unemployed Employment/Extracurricular Activities/Hobbies: Unknown Limitations of Daily Activities: None Strengths/Supports: Patient is able to access her basic needs. Patient is able to advocate for herself. Patient is aware of resources available. Collaterals, contact information, and engagement level: Therapist: None reported Psychiatrist: None reported PCP: None reported Family: FatherIrineo: - Dad reported that patient has been using substances and that she needs to go somewhere she can stay and not have access to leave and use for a year or so. He expressed that patient has not attempted to kill or hurt herself. Dad reported that patient will likely use drugs if she is discharged. Other: None reported Mental Status Speech: WNL Eye Contact: Intense Motor Activity: Restless Mood: Anxious, Irritable Affect: Labile Sleep: Fair Appetite: Fair Memory: WNL Attention / Concentration: Mild Impairment Behavior: Agitated and Restless Appearance: Hallucinations: Auditory and Visual Delusions: None Thought Content: WNL SI: Presence HI: Denied Thought Process: Flight of Ideas Orientation Impairment: None Insight: Poor Judgment: Poor Impulse Control: Poor Substance Use History (Including family history): Patient has an extensive substance use history. Per documentation she started to drink alcohol at 21 years old and cocaine at 31 years old. Utox Results: Utox was positive for cocaine, cannabis, and fentanyl. BAL was normal. Substance Use Treatment History: Dad reported that patient has a history of substance use treatment, including a section 35. Previous documentation reports that patient has been to detox and rehab. Mental Health Treatment History: Outpatient Mental Health Treatment: Patient does not have current outpatient providers. Previous or Current Psychological Diagnosis: Previous assessment reports patient having been diagnosed with schizoaffective, cocaine, and alcohol use. Prior Psychiatric Hospitalizations/Residential Treatment Facilities: Patient is known to [facility] through multiple crisis evaluations and psychiatric inpatient admissions. Other Comments Regarding Mental Health Treatment History: None Mental Health Concerns in Family: None reported Trauma History: Previous assessment reports that patient has denied a history of abuse or trauma. Medications: Scheduled Meds: Continuous Infusions: PRN Meds: Patient reported that [facility] will not give her her psych medications. Risk Assessment: Self-Harm: None Suicidal Behavior: Ideation and Passive Homicidal Behavior: None Physical Assault: None Physical Aggression: None Property Damage: None Verbal Aggression: None Family history of suicide: None reported Protective Factors: Patient is able to access her basic needs. Patient is able to advocate for herself. Patient is aware of resources available. Risk Factors: Patient is unhoused. Patient does not have outpatient mental health providers. Patient has a history of not following through with support. Patient continues to use substances. Suicide Risk: Based on patient's history and current presentation, their level of risk for intentional lethal harm is considered Low Safety Plan Completed: no Patient is aware that she is able to return to [facility] should she get worse. Interventions: Risk/crisis assessment, active listening, empathetic listening, resources Response to interventions: Patient was unaligned with receiving resources and struggled to engage when she realized she was not getting what she wanted. DSM-5TR Diagnosis: F25.0 Schizoaffective D/O Bipolar Type F14.20 Cocaine use, severe Plan: Based on the information above, patient does not meet criteria for psychiatric inpatient admission.Patient would benefit from utilizing resources provided to obtain outpatient mental health support.She would also benefit from self- presenting to substance use support and work towards a sober lifestyle. Recommendations were discussed with requesting provider. It was a pleasure to assist Narcisa Baptiste here at [facility]. This report is written and finalized by: John Carvalho Behavioral Health Specialist [facility] (Tel): [phone] / : [phone] documented in this encounter Plan of Treatment Scheduled Orders Name Type Priority Associated Diagnoses Orde r Schedule ECG 12 lead ECG STAT Once for 1 Oc currences starting 07/12/2025 until 07/12/2025 documented as of this encounter Procedures Procedure Name Priority Date/Time Associated Diagnosis Comments DUTTON URINE CULTURE TUBE Routine 07/12/2025 12:21 PM EDT TIGER TOP URINE TUBE Routine 07/12/2025 12:21 PM EDT DRUG ABUSE SCREEN 8A PANEL, URINE STAT 07/12/2025 12:21 PM EDT BUPRENORPHINE SCREEN, URINE STAT 07/12/2025 12:21 PM EDT METHADONE SCREEN, URINE STAT 07/12/2025 12:21 PM EDT EXTRA TUBES Routine 07/12/2025 12:21 PM EDT PHENCYCLIDINE, URINE STAT 07/12/2025 12:21 PM EDT CBC WITH AUTO DIFFERENTIAL STAT 07/12/2025 12:20 PM EDT CBC AND DIFFERENTIAL STAT 07/12/2025 12:20 PM EDT ETHANOL STAT 07/12/2025 12:20 PM EDT ACETAMINOPHEN LEVEL STAT 07/12/2025 1 2:20 PM EDT SALICYLATE LEVEL STAT 07/12/2025 12:2 0 PM EDT COMPREHENSIVE METABOLIC PANEL STAT 07/12/2025 12:20 PM EDT documented in this encounter Results * [place] top urine tube (07/12/2025 12:21 PM EDT) Extra Tube Hold for add-ons. 07/12/2025 3:01 PM EDT [facility] Comment:Auto resulted. Urine Urine specimen obtained by clean catch procedure / Unknown 07/12/2025 12:21 PM EDT 07/12/2025 1:08 PM EDT us Elizabeth Vargas MD LAB URINE ORDERABLES Final Res ult Performing Organization Address City/[facility] [address]/ZIP Co de Phone Number [facility] [address] [place] [address], [place] [phone] * [place] urine culture tube (07/12/2025 12:21 PM EDT) Extra Tube Hold for add-ons. 07/12/2025 3:01 PM EDT [facility] Comment:Auto resulted. Urine Urine specimen obtained by clean catch procedure / Unknown 07/12/2025 12:21 PM EDT 07/12/2025 1:08 PM EDT Elizabeth Vargas MD LAB URINE ORDERABLES Final Res ult [facility] [address] [place] [address], [place] [phone] * Methadone, urine (07/12/2025 12:21 PM EDT) Methadone Screen, Urine Negative Negative LAB CHEMISTRY METHOD 07/12/2025 1:35 PM EDT [facility] Comment: Assay cutoff 300 ng/mL Semi-quantitative assay for screening purposes only. Unconfirmed screening result should not be used for non-medical purposes. *ALTERNATE METHOD CONFIRMATION DONE UPON REQUEST ONLY* Urine Urine specimen obtained by clean catch procedure / Unknown Non-blood Collection / Unknown 07/12/2025 12:21 PM EDT 07/12/2025 1:08 PM EDT us Elizabeth Vargas MD LAB URINE ORDERABLES Final Res ult Performing Organization Address [facility] [address]/[facility] de Phone Number [facility] [address] [place] [address], [place] [phone] * Phencyclidine, urine (07/12/2025 12:21 PM EDT) PCP Scrn, Ur Negative Negative LAB CHEMISTRY METHOD 07/12/2025 1:35 PM EDT [facility] Comment: Assay cutoff 25 ng/mL Semi-quantitative assay for screening purposes only. Unconfirmed screening result should not be used for non-medical purposes. *ALTERNATE METHOD CONFIRMATION DONE UPON REQUEST ONLY* Urine Urine specimen obtained by clean catch procedure / Unknown Non-blood Collection / Unknown 07/12/2025 12:21 PM EDT 07/12/2025 1:08 PM EDT us Elizabeth Vargas MD LAB URINE ORDERABLES Final Res ult Performing Organization Address [facility] [address]/[facility] de Phone Number [facility] [address] [place] [address], [place] [phone] * Buprenorphine screen, urine (07/12/2025 12:21 PM EDT) Buprenorphine Screen Urine Negative Negative LAB CHEMISTRY METHOD 07/12/2025 1:35 PM EDT [facility] Urine Urine specimen obtained by clean catch procedure / Unknown Non-blood Collection / Unknown 07/12/2025 12:21 PM EDT 07/12/2025 1:08 PM EDT Narrative [facility] - 07/12/2025 1:35 PM EDT Assay cutoff 5 ng/mL Semi-quantitative assay for screening purposes only. Unconfirmed screening result should not be used for non-medical purposes. *ALTERNATE METHOD CONFIRMATION DONE UPON REQUEST ONLY* us Elizabeth Vargas MD LAB URINE ORDERABLES Final Res ult [facility] [address] [place] [address], * (ABNORMAL) Drug abuse screen 8a panel, urine (07/12/2025 12:21 PM EDT) [facility] Amphetamine Screen, Ur Negative Negative LAB CHEMISTRY METHOD 1:48 PM EDT [facility] Comment:Certain OTC medicati ons containing ephedrine, phenylephrine, pseudoephedrine and phenylpropanolamine can cause false positive results. Barbiturate Screen, Ur Negative Negative LAB CHEMISTRY METHOD 1:48 PM EDT [facility] Benzodiazepine Screen, Ur Negative Negative LAB CHEMISTRY METHOD 1:48 PM EDT [facility] Cocaine Screen, Ur Positive(A ) Negative LAB CHEMISTRY METHOD 1:48 PM EDT [facility] Opiate Screen, Ur Negative Negative LAB CHEMISTRY METHOD 1:48 PM EDT [facility] Cannabinoid (THC) Screen, Ur Positive(A ) Negative LAB CHEMISTRY METHOD 1:48 PM EDT [facility] Comment:Specimens from patie nts taking pantoprazole sodium (Protonix) have been shown to produce false positive results. Oxycodone Screen, Ur Negative Negative LAB CHEMISTRY METHOD 5 1:48 PM EDT [facility] Fentanyl, Ur Positive(A ) Negative LAB CHEMISTRY METHOD 1:48 PM [facility] Urine Urine specimen obtained by clean catch procedure / Unknown Non-blood Collection / Unknown 07/12/2025 12:21 PM EDT 07/12/2025 1:08 PM EDT Narrative [facility] - 07/12/2025 1:48 PM EDT Assay cutoffs: Amphetamines 1000 ng/mL Barbiturates 200 ng/mL Benzodiazepines 200 ng/mL Cocaine 300 ng/mL Fentanyl 1 ng/mL Opiates 300 ng/mL Oxycodone 100 ng/mL THC 50 ng/mL Semi-quantitative assay for screening purposes only. Unconfirmed screening result should not be used for non-medical purposes. *ALTERNATE METHOD CONFIRMATION DONE UPON REQUEST ONLY* us Elizabeth Vargas MD LAB URINE ORDERABLES Final Res ult [facility] [address] [place] [address], [place] [phone] * (ABNORMAL) CBC auto differential (07/12/2025 12:20 PM EDT) WBC 6.0 4.8 - 10.8 K/mcL LAB HEMETOLOGY METHOD 07/12/2025 1:20 PM EDT [facility] RBC 4.30 3.80 - 4.80 M/mcL LAB HEMETOLOGY METHOD 07/12/2025 1:20 PM EDT [facility] Hemoglobin 11.5 11.5 - 16.0 g/dL LAB HEMETOLOGY METHOD 07/12/2025 1:20 PM EDT [facility] Hematocrit 35.7 35.0 - 47.0 % LAB HEMETOLOGY METHOD 07/12/2025 1:20 PM EDT [facility] MCV 83.8 79.0 - 98.0 FL LAB HEMETOLOGY METHOD 07/12/2025 1:20 PM EDT [facility] MCH 27.0 27.0 - 32.0 pcg LAB HEMETOLOGY METHOD 07/12/2025 1:20 PM EDT [facility] MCHC 32.2 32.0 - 37.0 g/dL LAB HEMETOLOGY [facility] RDW 14.6 11.0 - 15.0 % LAB HEMETOLOGY METHOD 07/12/2025 1:20 PM [facility] Platelets 421(H) 130 - 400 K/mcL LAB HEMETOLOGY METHOD 07/12/2025 1:20 PM [facility] MPV 9.8 7.0 - 11.0 FL LAB HEMETOLOGY METHOD 07/12/2025 1:20 PM [facility] NRBC 0.0 <1.0 % LAB HEMETOLOGY METHOD 07/12/2025 1:20 PM [facility] NRBC Absolute 0.00 <0.10 K/mcL LAB HEMETOLOGY METHOD 07/12/2025 1:20 PM [facility] Neutrophils Relative 43.8 % LAB HEMETOLOGY METHOD 07/12/2025 1:20 PM [facility] [facility] Lymphocytes Relative 37.2 % LAB HEMETOLOGY METHOD 07/12/2025 1:20 PM [facility] Monocytes Relative 7.5 % LAB HEMETOLOGY METHOD 07/12/2025 1:20 PM [facility] Eosinophils Relative 10.5 % LAB HEMETOLOGY METHOD 07/12/2025 1:20 PM [facility] Basophils Relative 0.8 % LAB HEMETOLOGY METHOD 07/12/2025 1:20 PM [facility] Immature Granulocytes Relative 0.2 % LAB HEMETOLOGY METHOD 07/12/2025 1:20 PM [facility] Neutrophils Absolute 2.62 1.50 - 7.00 K/mcL LAB HEMETOLOGY METHOD 07/12/2025 1:20 PM [facility] Lymphocytes Absolute 2.23 1.00 - 5.00 K/mcL LAB HEMETOLOGY METHOD 07/12/2025 1:20 PM EDT [facility] Monocytes Absolute 0.45 0.20 - 1.00 K/[facility] LAB HEMETOLOGY METHOD 07/12/2025 1:20 PM EDT [facility] Eosinophils Absolute 0.63(H) 0.00 - 0.50 K/mcL LAB HEMETOLOGY METHOD 07/12/2025 1:20 PM EDT [facility] Basophils Absolute 0.05 0.00 - 0.20 K/[facility] LAB HEMETOLOGY METHOD 07/12/2025 1:20 PM EDT [facility] Immature Granulocytes Absolute 0.01 0.00 - 0.03 K/[facility] LAB HEMETOLOGY METHOD 07/12/2025 1:20 PM EDT [facility] Blood Venous blood specimen / Unknown Venipuncture / Unknown 07/12/2025 12:20 PM EDT 07/12/2025 1:08 PM EDT us Elizabeth Vargas MD LAB BLOOD ORDERABLES Final Res ult [facility] [address] [place] [address], * (ABNORMAL) Salicylate level (07/12/2025 12:20 PM EDT) Salicylate Level <1.7(L) 2.0 - 29.0 mg/dL LAB CHEMISTRY METHOD 07/12/2025 1:35 PM EDT [facility] Blood Venous blood specimen / Unknown Venipuncture / Unknown 07/12/2025 12:20 PM EDT 07/12/2025 1:08 PM EDT us Elizabeth Vargas MD LAB BLOOD ORDERABLES Final Res ult [facility] [address] [place] [address], [place] [phone] * (ABNORMAL) Acetaminophen level (07/12/2025 12:20 PM EDT) Acetaminophen Level <2.0(L) 10.0 - 30.0 mcg/mL LAB CHEMISTRY METHOD 07/12/2025 1:35 PM EDT [facility] Blood Venous blood specimen / Unknown Venipuncture / Unknown 07/12/2025 12:20 PM EDT 07/12/2025 1:08 PM EDT us Elizabeth Vargas MD LAB BLOOD ORDERABLES Final Res ult Performing Organization Address [facility] [address]/ZIP Co de Phone Number [facility] [address] [place] [address], [place] [phone] * Ethanol (07/12/2025 12:20 PM EDT) Pathologist [facility] Ethanol Level <3 0 - 10 mg/dL LAB CHEMISTRY METHOD 07/12/2025 1:35 PM EDT [facility] Blood Venous blood specimen / Unknown Venipuncture / Unknown 07/12/2025 12:20 PM EDT 07/12/2025 1:08 PM EDT us Elizabeth Vargas MD LAB BLOOD ORDERABLES Final Res ult [facility] [address] [place] [address], [place] [phone] * Comprehensive metabolic panel (07/12/2025 12:20 PM EDT) Sodium 142 133 - 145 mmol/L LAB CHEMISTRY METHOD 07/12/2025 1:35 PM EDT [facility] Potassium 4.4 3.5 - 5.5 mmol/L LAB CHEMISTRY METHOD 07/12/2025 1:35 PM EDT [facility] Chloride 107 96 - 110 mmol/L LAB CHEMISTRY METHOD 07/12/2025 1:35 PM [facility] CO2 29 21 - 32 mmol/L LAB CHEMISTRY METHOD 07/12/2025 1:35 PM [facility] Anion Gap 6 3 - 11 LAB CHEMISTRY METHOD 07/12/2025 1:35 PM [facility] Glucose 81 70 - 100 mg/dL LAB CHEMISTRY METHOD 07/12/2025 1:35 PM [facility] BUN 10 5 - 25 mg/dL LAB CHEMISTRY METHOD 07/12/2025 1:35 PM [facility] Creatinine 0.90 0.50 - 1.10 mg/dL LAB CHEMISTRY METHOD 07/12/2025 1:35 PM [facility] eGFR 82 >=60 mL/min/1. 73m2 LAB CHEMISTRY METHOD 07/12/2025 1:35 PM [facility] Comment:Calculation based on the Chronic Kidney Disease Epidemiology Collaboration (CKD-EPI) equation refit without adjustment for race. BUN/Creatinine Ratio 11.1 LAB CHEMISTRY METHOD 07/12/2025 1:35 PM [facility] Calcium 9.2 8.5 - 10.5 mg/dL LAB CHEMISTRY METHOD 07/12/2025 1:35 PM [facility] AST (SGOT) 12 10 - 42 unit/L LAB CHEMISTRY METHOD 07/12/2025 1:35 PM [facility] ALT (SGPT) 14 10 - 60 unit/L LAB CHEMISTRY METHOD 07/12/2025 1:35 PM [facility] Alkaline Phosphatase 55 42 - 121 unit/L LAB CHEMISTRY METHOD 07/12/2025 1:35 PM [facility] Total Protein 6.7 6.0 - 8.0 g/dL LAB CHEMISTRY METHOD 07/12/2025 1:35 PM [facility] Albumin 3.5 3.2 - 5.0 g/dL LAB CHEMISTRY METHOD 07/12/2025 1:35 PM EDT [facility] Total Bilirubin 0.4 0.0 - 1.4 mg/dL LAB CHEMISTRY METHOD 07/12/2025 1:35 PM EDT [facility] Blood Venous blood specimen / Unknown Venipuncture / Unknown 07/12/2025 12:20 PM EDT 07/12/2025 1:08 PM EDT us Elizabeth Vargas MD LAB BLOOD ORDERABLES Final Res ult [facility] [address] [place] [address], documented in this encounter Visit Diagnoses Diagnosis Depression, unspecified depression type- Primary Schizoaffective disorder, unspecified type (CMS/HCC V24, CMS/HCC V28) documented in this encounter Orders Diet Count Last Ordered Date First Orde red Date ADULT DIET 1 07/12/2025 Consult Count Last Ordered Date First Orde red Date IP CONSULT TO POLYSOMNOGRAPHIC TECHNOLOGIST 1 07/12/2025 Precaution Count Last Ordered Date First Orde red Date SUICIDE PRECAUTIONS 2 07/12/2025 Privilege Level Count Last Ordered Date First O rdered Date PATIENT LOGISTIC SPECIALIST 1 07/12/2025 documented in this encounter Care Teams Maintenance Planning Clerk Relationship Specialty Start Date End Date Physician, No Pcp PCP - General 03/01/25 documented as of this encounter
[2025-07-12 15:31] VITALS: BP 122/80; PULSE 70; O2SAT 98
[2025-07-12 15:36] VITALS: BP 121/67; PULSE 58; RESP 17; TEMP 36.2; O2SAT 99; BMI 22.7
--- OUTSIDE RECORDS SUMMARY | 2025-07-12 15:53 | XMS_ITS | Patient Health Record ---
Author Organization [facility] Address [address] [place], [place] [id number] Care Team Providers Care Pigment Making Supervisor Name Role Phone [facility] Provi umu [phone] Mena Shannon Unavailable ZZArchive - DO NOT USE, [facility] Sneha vailable Unavailable Allergies Allergen (clinical drug ingredient) Drug/Non Drug Allergy documented on EMR Reaction Allergy Type Onset Date Status quetiapine Seroquel drowsiness, extreme Drug Allergy Active Haldol racing thoughts Drug Allergy A ctive Reason For Referral No Information Medications Medication SIG (Take, Route, Frequency, Duration) Notes Start Date End Date Status olanzapine 5 mg one tab orally daily in am Active hydrOXYzine hydrochloride 50 mg 1 tab(s) orally 3 times a day PRN anxiety Active Nicoderm C-Q 7 mg/24 hr 1 PATCH transder emile once a day Active citalopram 20 mg 1 tab(s) orally once a day for 30 day(s) Active citalopram 20 mg 1 tab(s) orally once a day Active OLANZapine 5 mg one tab orally daily in am Active OLANZapine 15 mg 1 tab(s) orally QHS Active cloNIDine 0.1 mg 1 tab(s) orally PRN Active Social History Tobacco Use: Social History Observation Description Date Details (start date - stop date) Current Smoker NA - NA Tobacco Use Assessment MU Question Answer Notes [...] tobacco use and advised to quit: 08/27/2013 Problems Problem Type SNOMED Code ICD Code Onset Dates Problem Status W/U Status Risk Notes Problem Bipolar disorder (85736598) BIPOLAR DISORDER NEC (296.89) Active confirmed Problem Body mass index 20-24 - normal (664014817) BMI BETWEEN 19-24,ADULT (V85.1) Active confirmed Problem Alcohol dependence (22563497) Alcohol dependence, uncomplicated (F10.20) Active confirmed Problem Cocaine abuse (42980240) Cocaine abuse, uncomplicated (F14.10) Active confirmed Problem Schizoaffective disorder, depressive type (95103743) Schizoaffective disorder, depressive type (F25.1) Active confirmed Encounters Encounter Location Date Provider Diagnosis [facility] [phone] 05/18/2025 Mena Shannon [facility] [phone] 06/10/2025 Mena Shannon Plan Of Treatment No Information Insurance Providers Payer Name Payer Address Payer Phone Subscriber Number Group Number Insured Name Patient Relationship to Insured Coverage Start Date Coverage End Date [place] [address] [place] [address] [phone] [id number] Narcisa Vann Self - patient is the insured Medical (General) History Medical History History ICD Code anemia sickle cell trait schizophrenia Ectopic , age 17 Suicide attempt via pill OD, age 17 and 22
--- OUTSIDE RECORDS SUMMARY | 2025-07-12 15:53 | XMS_ITS | Clinical Summary ---
Author Organization [facility] Address [address] [place] [address] [address] Care Drive Thru Order Taker Name Role Phone Funmilayo Robison [facility] Primary Care Provider [phone] Source Comments PLEASE NOTE, if this patient is a minor, it may be UNLAWFUL to discuss sensitive information that is contained in these records (such as FAMILY PLANNING, MENTAL HEALTH or SUBSTANCE ABUSE) with the minor patient's parent or other person without the patient's specific authorization.[facility] Allergies Active Allergy Reactions Criticality Noted Date Comments Haloperidol 08/12/2015 Other reaction(s): Unknown Per er note from 07/12/15 Quetiapine 08/12/2015 Other reaction(s): Unknown Per er note 07/12/15 Medications * This document contains information received from the source organization and may not represent a complete record from that organization. divalproex (DEPAKOTE) [address] tablet Take 500 mg by mouth 1 Active risperiDONE (RISPERDAL) 3 mg tablet TAKE 1 TABLET BY MOUTH TWICE DAILY FOR PSYCHOSIS 1 Active omeprazole (PRILOSEC) [address] capsuleIndications: Gastroesophageal reflux disease without esophagitis Take 1 Capsule by mouth 2 (two) times daily before a meal For heart burn 60 Capsule 2 1 Active hydrOXYzine pamoate (VISTARIL) 50 mg capsuleIndications: Other schizoaffective disorders ([facility]) TAKE 1 CAPSULE BY MOUTH 3 TIMES A DAY NEEDED FOR ANXIETY 2 Active melatonin 3 mg tabletIndications:O ther schizoaffective disorders ([facility]) TAKE 3 TAB BY MOUTH AT BEDTIME NEEDED INSOMNIA 2 Active risperiDONE (RISPERDAL) 1 mg tabletIndications:O ther schizoaffective disorders ([facility]) Take 1 Tablet by mouth 3 (three) times daily as needed for other reason (anxiety/mood problems) 2 Active ibuprofen 800 mg tabletIndications:P ain in joint involving multiple sites Take 1 Tablet by mouth 3 (three) times daily as needed for pain 90 Tablet 2 2 Active acetaminophen (TYLENOL) 500 mg tabletIndications:P ain in joint involving multiple sites Take 2 Tablets by mouth every 8 (eight) hours as needed for pain Max 6 tabs per day. 60 Tablet 1 2 Active mirabegron (MYRBETRIQ) 25 mg [id number]:Jeevan yuria,Nocturia Take 1 Tablet by mouth once daily For polyuria 30 Tablet 2 2 Active Active Problems Problem Noted Date Diagnosed Date Schizoaffective disorder ([facility]) 021 Mood disorder ([facility]) 01/29/2018 Overview (09/08/2019): 09/02/2019: Patient reports previous diagnosis of schizoaffective disorder. Treated with monthly Invega injections. Has missed two previous psychiatric appointments. Assessment & Plan (09/08/2019 10:24 AM EDT): Psychological condition is worsening. Plan: Patient was transported to [facility] for psychiatric evaluation. Psychological condition will be reassessed in 2 weeks. Assessment & Plan (04/21/2018 11:32 AM EDT): Pt reports treatment program completed for substance abuse/mental health problems.She has run out of meds given to her while she was inpatient.I have listed her prescriptions in the med list and advised her to have an intake appt with MH services.She is interested in both psychopharmacology appt and regular therapy. Cocaine abuse ([facility]) 01/29/2018 High risk sexual behavior 01/22/2018 Assessment & Plan (04/21/2018 11:28 AM EDT): Wants PrEP;reports not sexually active and not using IVD, but still wants to start.HIV, test ordered;still thinking about it;if she wants to go forward, will obtain creatinine, hep B status, screen for other STI's.At present she is on oral contraceptives, and was given condoms and hand out for PrEP to review.Return in one week Assessment & Plan (01/22/2018 3:55 PM EDT): Pt requesting STI screening, none x 2 years. Last sexually active with male partner, approx 1 month ago, without condoms. Partner's status is unknown. Will update HIV, GC/chlamydia, syphilis and HCV screening. Will FU with pt on results prior to next scheduled appt Polysubstance abuse ([facility]) 04/10/2017 Overview (08/04/2024): 09/07/2019: Reports that last use of crack cocaine or alcohol was 3 months ago. Currently participating in Drug and Alcohol Program at [facility] in [place], [place]. [facility] ED 03/08/17, crack cocaine and EtOH daily. 07/01/24 [facility] ED crack cocaine use and SI; involuntary psychiatric admission. Assessment & Plan (05/01/2018 4:56 PM EDT): Pt reports drinking a quart a day & using crack daily but declines detox today. RN reviewed detox options with pt. Pt agrees to consider. Today pt A&O x3, no signs of intoxication, w/d. Pt plans to have friend p/u Campral rx from [facility], informed about option of going to [facility] for bridging meds until psych appt. Pt will then have meds if she decides to go to detox. Suicidal ideation 04/10/2017 Overview (08/04/2024): 09/08/2019: Arrived at [facility] for physical exam, reported suicidal ideation associated with external voices and hallucinations. Previous history of suicide attempted by ingestion of her medications. 03/08/17 [facility] ED for SI with EtOH and crack abuse. Admitted to psych. 07/01/24 [facility] ED crack cocaine use and SI; involuntary psychiatric admission. Assessment & Plan (09/08/2019 11:25 AM EDT): Psychological condition is worsening. Presenting today to establish care. Reports suicidal ideations, auditory and visual hallucinations. On Invega injection monthly. Does not have an established psychiatrist or yet. Plan: Patient was transported to [facility] for psychiatric evaluation. Psychological condition will be reassessed in 2 weeks. Assessment & Plan (01/13/2018 4:54 PM EST): Patient reports SI and referred to [facility] who did more intake and referral to [facility]. Hearing voices 08/12/2015 Overview (08/12/2015): Yeimi er 07/12/15 n examined and he was able to be d/alejandrina to home urine tox + for cocaine Resolved Problems Problem Noted Date Diagnosed Date Resolved Date Contact with and (suspected) exposure to human immunodeficiency virus (hiv) 04/30/201809/08 Assessment & Plan (04/30/2018 10:30 AM EDT): Pt here for HIV, CMP & HcG lab results. Results given to pt by GEMMA Davis : all NEG. Pt still considering PrEP; has new pt appt scheduled with Dr. Crowe on 07/02/18. Screening for malignant neoplasm of cervix 01/22/2018 09/08/2019 Assessment & Plan (01/22/2018 3:56 PM EDT): Unknown pap status, updating this along with other evaluations today. Trichomonas vaginalis infection 01/22/2018 01/15/2019 Assessment & Plan (01/28/2018 11:57 AM EDT): No known partner, contacts. Will treat with Flagyl 500 mg 4 tabs po x 1. Discussed no alcohol use x 24 hrs after treatment and no sex x 1 wk. Reviewed labs. Should f/u in 2 wks - 3 mos for test of cure. Assessment & Plan (01/22/2018 3:54 PM EDT): sxs and exam most c/w BV. Will treat with intravaginal metro. Vaginitis swab sent to lab, will FU by phone if results differ from empiric tx decision. Routine health maintenance 01/22/2018 0 01/15/2019 Assessment & Plan (01/28/2018 1:37 PM EDT): Reviewed recent STD testing. Neg GC/Chl, RPR, HIV, Hep C. Hep B antibody <5, immune Hep A. Pap results 01/22/18 reviewed, NILM, neg HPV next due 01/22/21. Did not wait to receive vaccine Tdap or Hep B today per nursing. Will need repeat PPD as no reading in chart. Pt contemplating PCP in this program as ultimate goal is to return to [place] to live with sister and f/u with care there. Assessment & Plan (01/22/2018 3:56 PM EDT): New pt entering primary care, no consistent care x approx 2 years. Update HIV and hep screenings. Flu and menactra vaccines given today as well as PPD. Will FU in 1 month for further eval Counseling for control , oral contraceptives 01/22/2018 01/15/2019 Assessment & Plan (01/22/2018 3:58 PM EDT): Urine Hcg negative. Pt interested in control options today. Declines IUD, didn't like Depo d/t irregular bleeding. Will initiate OCPs, low dose combo estrogen/progesterone. Reviewed potential risk for DVT/PE with OCPs, increased with concomitant smoking. Reviewed access to emergency constraception if needed. Encounter for medication refill 10/31/2017 01/15/2019 Cough 01/03/2017 01/15/2019 Assessment & Plan (01/03/2017 9:33 AM EST): C/o productive cough x 3-4 days. No meds taken Lungs clear Given unit dose guaifenesin syrup and cough drops with instruction on use. Encouraged frequent hand washing, cough in tissue/sleeve, increase in water intake. Education provided regarding importance of immunizations. Pt reports receiving flu vaccine in [place] 07/2017. Counseling and coordination of care 01/03/2017 01/15/2019 Assessment & Plan (01/03/2017 9:34 AM EST): Has been at [facility] month Has [facility] worker from [place] not sure if staying in [place], if she does agrees to RTC to establish care. Odd affect, laughing inappropriately during eval Referred to ALIC[facility] [place] at [facility] Pt reports she is prescribed Zypreza 20mg QHS and cannot find it. Has psych in [place], [place] Immunizations Immunization Administration Dates Next Due Flu, Preservative Free 08/09/2021 Hep B, Adult/Adol ([id number]/RECOMBIVAX-AD ULT) 01/01/2019 INFLUENZA, SEASONAL, INJECTABLE 01/22/2018 ANTHONY COVID-19 VACCINE 04/26/2021 MENINGOCOCCAL MCV4P (MENACTRA) 01/22/2018 PNEUMOCOCCAL POLYSACCHARIDE PPV23 (Pneumovax 23) 09/08/2019 PPD 01/22/2018 TDAP 09/08/2019 Family History Medical History Relation Name Comments No Known Problems Father Hypertension Mother No Known Problems Sister Relation Name Status Comments Father Alive Mother Sister Alive Social History Tobacco Use Types Packs/Day Years Used Date Smoking Tobacco: Every Day Cigarettes Smokeless Tobacco: Never Tobacco Cessation:Ready to Q uit: Yes; Counseling Given: Yes Comments:1 ppd/ a pack a day Alcohol Use Standard Drinks/Week Comments Not Currently 42 (1 standard drink = 0.6 oz pure alcohol) drinking but declines detox today. Social Connections Answer Date Recorded Connectedness 0 07/17/2024 Financial Resource Strain Answer Date R ecorded Financial Resource Strain 0 2018 Stress Answer Date Recorded Stress 0 07/04/2019 Physical Activity Answer Date Recorded Physical Activity 0 07/04/2019 Food Insecurity Answer Date Recorded Food 0 08/06/2024 Transportation Needs Answer Date Record ed Transportation 0 07/04/2019 Housing Stability Answer Date Recorded Housing 0 07/04/2019 Safety and Environment Answer Date Valentín rded Safety 0 07/11/2021 Utilities Answer Date Recorded Utilities 0 07/04/2019 Employment Answer Date Recorded Employment 0 07/04/2019 Comments No Sex and Gender Information Value Date Recorded Sex Assigned at Female 10/31/2017 2:30 PM PST Legal Sex Female 6:26 AM PDT Gender Identity Female 10/31/2017 2:30 PM PST Sexual Orientation Straight 10/31/2017 2: 30 PM PST Last Filed Vital Signs Vital Sign Reading Time Taken Comments Blood Pressure 96/66 01/30/2022 1:24 PM EDT Pulse 76 01/30/2022 1:24 PM EDT Temperature 36.9 C (98.5 F) 01/30/2022 1:24 PM EDT Respiratory Rate 16 01/30/2022 1:24 PM EDT Oxygen Saturation 98% 01/30/2022 1:24 PM EDT Inhaled Oxygen Concentration - - Weight 67.9 kg (149 lb 12.8 oz) 01/30/2022 1:24 PM EDT Height 154.9 cm (5' 1 ) 01/30/2022 1:24 PM EDT Body Mass Index 28.3 01/30/2022 1:24 PM EDT Plan of Treatment Health Maintenance Due Date Last Done Comments HPV Screening 1981 Medicare Annual Wellness Visit 1999 Imm-Hepatitis A (1 of 2 - Ri sk 2-dose series) 2000 Tobacco Screening 04/21/2015 04/21/2014 Imm-Pneumococcal (2 of 2 - PCV) 09/08/2020 9 Breast Cancer Screening (Mammogram) 2021 Anxiety Screening 07/11/2022 07/11/2021 Relationship Safety Screening/Counseling 07/11/2022 07/11/2021 Tobacco Cessation Counseling (#1) 07/11/2022 014 Lipid Screening 08/09/2022 08/09/2021, 06/0 06/2021, 01/01/2019 STI Counseling 08/09/2022 08/09/2021, 01/01/2019 Hypertension Screening (#1) 01/30/2023 Diabetes Screening 11/02/2023 11/02/2022, 0 01/30/2022, 08/09/2021, Additional history exists [id number] (2 - season) 2024 021 Pap Smear 08/09/2024 08/09/2021, 01/22/2018 Alcohol and Drug Screen 11/11/2024 01/31/20 22, 08/09/2021, 07/11/2021, Additional history exists Depression Annual Screen 11/11/2024 01/30/2022 Imm-Influenza (#1) 2025 08/09/2021, 01/22/2018 Cervical Cancer Screening 08/09/2026 Pap + HPV 08/09/2026 08/09/2021, 01/22/2018 Imm-DTaP/Tdap/Td (2 - Td or Tdap) 09/08/2029 019 Imm-Hepatitis B Discontinued 01/01/2019 HIV Screening Completed 08/09/2021, 04/11, 04/22/2021, Additional history exists Hepatitis C Screening Completed 08/09/2021, 018 Cervical Ablation/Cold-Knife Conization Discontinued Cervical Cryotherapy Discontinued Colposcopy Discontinued Endometrial Biopsy Discontinued Excision/Leep Discontinued HPV Genotyping Discontinued Vaginal Pap Discontinued Vulvoscopy Discontinued Procedures Procedure Name Priority Date/Time Associated Diagnosis Comments COMPREHENSIVE METABOLIC PANEL Routine 01/30/2022 2:08 PM EDT Polyuria Hx of trichomonal vaginitis Nocturia Other schizoaffective disorders (HCC-CMS) Pain in joints of both feet, toes, hands/fingers and cervical on and off Pain in joint involving multiple sites HIV 1/2 AG & AB W/RFLX (4TH GEN) Routine 08/09/2021 11:08 AM EDT Routine general medical examination at a health care facility Well woman exam with routine gynecological exam Need for vaccination Gastroesophageal reflux disease without esophagitis Amenorrhea Cocaine abuse (HCC-CMS) Other schizoaffective disorders (HCC-CMS) Hearing voices Routine screening for STI (sexually transmitted infection) HEPATITIS C AB W/RFLX HCV RNA, QT, RT PCR Routine 08/09/2021 11:08 AM EDT Routine general medical examination at a health care facility Well woman exam with routine gynecological exam Need for vaccination Gastroesophageal reflux disease without esophagitis Amenorrhea Cocaine abuse (HCC-CMS) Other schizoaffective disorders (HCC-CMS) Hearing voices Routine screening for STI (sexually transmitted infection) LIPID PANEL Routine 08/09/2021 11:08 AM EDT Routine general medical examination at a health care facility Well woman exam with routine gynecological exam Need for vaccination Gastroesophageal reflux disease without esophagitis Amenorrhea Cocaine abuse (HCC-CMS) Other schizoaffective disorders ([facility]) Hearing voices Routine screening for STI (sexually transmitted infection) THIN PREP PAP + HPV RNA E6/E7 (Q) Routine 08/09/2021 11:02 AM EDT Well woman exam with routine gynecological exam from Last 3 Months or Most Recently Relevant to Health Maintenance Results * COMPREHENSIVE METABOLIC PANEL (01/30/2022 2:08 PM EDT) GLUCOSE 75 65 - 99 mg/dL [facility] Comment: Fasting reference interval UREA NITROGEN (BUN) 18 7 - 25 mg/dL [facility] CREATININE (blood) 0.97 0.50 - 1.10 mg/dL [facility] GFR ESTIMATED 73 > OR = 60 mL/min/1 .73m2 [facility] EGFR 85 > OR = 60 mL/min/1 .73m2 [facility] BUN/CREATININE RATIO NOT APPLICABLE [facility] SODIUM 140 135 - 146 mmol/L [facility] POTASSIUM 4.2 3.5 - 5.3 mmol/L [facility] CHLORIDE 103 98 - 110 mmol/L [facility] CARBON DIOXIDE 27 20 - 32 mmol/L [facility] CALCIUM 10.0 8.6 - 10.2 mg/dL [facility] PROTEIN, TOTAL 7.6 6.1 - 8.1 g/dL [facility] ALBUMIN 4.5 3.6 - 5.1 g/dL [facility] GLOBULIN 3.1 1.9 - 3.7 g/dL (calc) [facility] ALBUMIN/GLOBUL IN RATIO 1.5 1.0 - 2.5 (calc) [facility] BILIRUBIN, TOTAL 0.3 0.2 - 1.2 mg/dL [facility] ALKALINE PHOSPHATASE 43 31 - 125 U/L [facility] AST 16 10 - 30 U/L [facility] ALT 12 6 - 29 U/L [facility] Blood Blood / Unknown 01/30/2022 2 :08 PM EDT 01/30/2022 2:09 PM EDT Funmilayo Robison [facility] - BLOOD DRAW Edited Result - Final Performing Organization Address City/[facility]/ZIP Co de Phone Number [facility] [address] [address], [facility] [address] [address] * HEPATITIS C AB W/RFLX HCV RNA, QT, RT PCR (08/09/2021 11:08 AM EDT) HEPATITIS C ANTIBODY NON-REACT MOHSEN NON-REACT MOHSEN [facility] SIGNAL TO CUT-OFF 0.03 <1.00 [facility] Comment: HCV antibody was non-reactive. There is no laboratory evidence of HCV infection. In most cases, no further action is required. However, if recent HCV exposure is suspected, a test for HCV RNA (test code 79463) is suggested. For additional information please refer to http://education.Night Zookeeper/faq/TKJ07w9 (This link is being provided for informational/ educational purposes only.) Blood Blood / Unknown 08/09/2021 1 1:08 AM EDT 08/09/2021 11:09 AM EDT Funmilayo Robison [facility] - BLOOD DRAW Edited Result - Final Performing Organization Address City/[facility]/ZIP Co de Phone Number [facility] [place] [facility] [address] [address], [facility] [address] [address] * HIV 1/2 AG & AB W/RFLX (4TH GEN) (08/09/2021 11:08 AM EDT) HIV AG/AB, 4TH GEN NON-REAC TIVE NON-REAC TIVE [facility] Comment: HIV-1 antigen and HIV-1/HIV-2 antibodies were not detected. There is no laboratory evidence of HIV infection. PLEASE NOTE: This information has been disclosed to you from records whose confidentiality may be protected by state law. If your state requires such protection, then the state law prohibits you from making any further disclosure of the information without the specific written consent of the person to whom it pertains, or as otherwise permitted by law. A general authorization for the release of medical or other information is NOT sufficient for this purpose. For additional information please refer to http://[employer].Night Zookeeper/faq/XOY394 (This link is being provided for informational/ educational purposes only.) The performance of this assay has not been clinically validated in patients less than 2 years old. Blood Blood / Unknown 08/09/2021 1 1:08 AM EDT 08/09/2021 11:09 AM EDT Funmilayo Robison [facility] - BLOOD DRAW Final Result [facility] [address] [address], [facility] [address] [place] [address],[place] [address] * LIPID PANEL (08/09/2021 11:08 AM EDT) CHOLESTEROL, TOTAL 159 <200 mg/dL [facility] HDL CHOLESTEROL 73 > OR = 50 mg/dL [facility] TRIGLYCERIDES 48 <150 mg/dL [facility] LDL-CHOLESTEROL 72 99 mg/dL (calc) [facility] Comment: Reference range: <100 Desirable range <100 mg/dL for primary prevention; <70 mg/dL for patients with CHD or diabetic patients with > or = 2 CHD risk factors. LDL-C is now calculated using the Raza-Robson calculation, which is a validated novel method providing better accuracy than the Friedewald equation in the estimation of LDL-C. Raza AYALA et al. YAZAN. 2013;310(19): 4186-6402 (http://education.TrustDegrees/faq/YCJ676) CHOL/HDLC RATIO 2.2 <5.0 (calc) [facility] NON-HDL CHOLESTEROL 86 <130 mg/dL (calc) [facility] Comment: For patients with diabetes plus 1 major ASCVD risk factor, treating to a non-HDL-C goal of <100 mg/dL (LDL-C of <70 mg/dL) is considered a therapeutic option. Blood Blood / Unknown 08/09/2021 1 1:08 AM EDT 08/09/2021 11:09 AM EDT Funmilayo Robison [facility] - BLOOD DRAW Final Result [facility] [address] [address], [facility] [place] [facility] [address] [address] * THIN PREP PAP + HPV RNA E6/E7 (Q) (08/09/2021 11:02 AM EDT) CLINICAL INFORMATION See Note [facility] Comment:ROUTINE LMP See Note [facility] Comment:[id number] PREV. PAP See Note [facility] Comment:NONE GIVEN PREV. BX See Note [facility] Comment:NONE GIVEN SOURCE See Note [facility] Comment:Cervix STATEMENT OF ADEQUACY See Note [facility] Comment: Satisfactory for evaluation. Endocervical/transformation zone component absent. INTERPRETATION/RESU LT See Note [facility] Comment:Negative for intraep ithelial lesion or malignancy. INFECTION See Note [facility] Comment:Trichomonas vaginali s identified. BOOK TRIMMER See Note [facility] Comment: YP, CT(ASCP) CT screening location: [place] [address] REVIEW BOOK TRIMMER See Note [facility] Comment: MAA, CT(ASCP) CT screening location: [place] [address] COMMENT [facility] HPV MRNA E6/E7 Not Detected Not Detected [facility] Comment: Methodology: Gis Scientist-Mediated Amplification This assay detects E6/E7 viral messenger RNA (mRNA) from 14 high-risk HPV types (16,18,31,33,35,39,45,51,52,56,58,59,66,68). The analytical performance characteristics of this assay have been determined by [employer]. The modifications have not been cleared or approved by the FDA. This assay has been validated pursuant to the CLIA regulations and is used for clinical purposes. For additional information, please refer to http://education.[employer].PlayLab/faq/SOA951r1 (This link if provided for information/ educational purposes only.) CYTOLOGY Cervix uteri structure / Unknown 08/09/2021 11:02 AM EDT 08/10/2021 9:29 AM EDT Narrative [employer] - 08/13/2021 7:10 PM EDT EXPLANATORY NOTE: The Pap is a screening test for cervical cancer. It is not a diagnostic test and is subject to false negative and false positive results. It is most reliable when a satisfactory sample, regularly obtained, is submitted with relevant clinical findings and history, and when the Pap result is evaluated along with historic and current clinical information. us Funmilayo [facility] - PATHOLOGY AND CYTOLOGY A MBULATORY Final Result [facility] [address] [address], [facility] [place] [facility] [address] [address] from Last 3 Months or Most Recently Relevant to Health Maintenance [place] Care Teams Drive Thru Order Taker Relationship Specialty Start Date End Date Funmilayo Robison FNP [address] [place] [phone] PCP - General Internal Medicine 06/18/23
--- OUTSIDE RECORDS SUMMARY | 2025-07-12 15:53 | XMS_ITS | Clinical Summary ---
Author Organization [facility] Address [address] [place] [address] Phone Care Team Providers Care Gallery Host Name Role Phone Physician, No Pcp Primary Care Provider Unavaila ble Allergies Active Allergy Reactions Criticality Noted Date Comments Quetiapine Anxiety 03/01/2025 Racing thoughts Medications risperiDONE (RisperDAL) 2 mg tablet Take 1 tablet (2 mg total) by mouth 1 (one) time each day in the morning. 02/01/2025 Active Encounters Date Type Department Care Team Description 07/12/2025 12:09 PM EDT - 07/12/2025 3:00 PM EDT Emergency [facility] Emergency [address] [place] [phone] Elizabeth Vargas MD Depression, unspecified depression type (Primary Dx); Schizoaffective disorder, unspecified type (CMS/HCC V24, CMS/HCC V28) Discharge Disposition: Home or Self Care 07/07/2025 8:54 AM EDT - 07/07/2025 3:32 PM EDT Emergency [facility] Emergency [address] [place] [id number] Elizabeth Vargas MD Schizophrenia, unspecified type (CMS/HCC V24, CMS/HCC V28) (Primary Dx) Discharge Disposition: Home or Self Care from Last 3 Months Medical History Medical History Date Comments Schizoaffective disorder (CM S/HCC V24, CMS/HCC V28) DX:Schizoaffective disorder (HCC) Substance abuse (CMS/HCC V24, CMS/HCC V28) Tourette's Family History Medical History Relation Name Comments No Known Problems Father No Known Problems Mother Relation Name Status Comments Father Mother Social History Tobacco Use Types Packs/Day Years [...] on file Sexual Orientation Not on file Obstetrics History Last Filed Vital Signs Vital Sign Reading [...] Mass Index 23.78 07/12/2025 12:02 PM EDT Plan of Treatment Health Maintenance Due Date Last Done Comments Breast Cancer Screening 1981 DTaP,Tdap,and Td Vaccines (1 - Tdap) 2000 Hepatitis A Vaccines (1 of 2 - Risk 2-dose series) 2000 Hepatitis B Vaccines (1 of 3 - 19+ 3-dose series) 2000 Pneumococcal Vaccine: Pediatrics (0 to 5 Years) and At-Risk Patients (6 to 49 Years) (1 of 2 - PCV) 2000 Cervical Cancer Screening: P ap Smear 2002 HIV Screening 10/14/2022 Hepatitis C Screening 10/14/2022 Medicare Annual Wellness Visit 10/14/2022 Social Influencers of Health Screening 10/14/2022 Depression Screening 11/11/2024 COVID-19 Vaccine (1 - 2023-2 5 season) 2025 Influenza Vaccine (#1) 2025 Cholesterol Screening (Lipid Panel) 04/18/2026 04/18/2021, 04/18/2021 HIB Vaccines Aged Out No longer eligi ble based on patient's age to complete this topic HPV Vaccines Aged Out No longer eligi ble based on patient's age to complete this topic IPV Vaccines Aged Out No longer eligi ble based on patient's age to complete this topic MMR Vaccines Aged Out No longer eligi ble based on patient's age to complete this topic Meningococcal ACWY Vaccine Aged Out N o longer eligible based on patient's age to complete this topic Meningococcal B Vaccine Aged Out No l onger eligible based on patient's age to complete this topic RSV Immunization Patients Under 20 months Aged Out No longer eligible b ased on patient's age to complete this topic Varicella Vaccines Aged Out No longer eligible based on patient's age to complete this topic Procedures Procedure Name Priority Date/Time Associated Diagnosis Comments TIGER TOP URINE TUBE Routine 07/12/2025 12:21 PM EDT DUTTON URINE CULTURE TUBE Routine 07/12/2025 12:21 PM EDT EXTRA TUBES Routine 07/12/2025 12:21 PM EDT METHADONE SCREEN, URINE STAT 07/12/2025 12:21 PM EDT PHENCYCLIDINE, URINE STAT 07/12/2025 12:21 PM EDT BUPRENORPHINE SCREEN, URINE STAT 07/12/2025 12:21 PM EDT DRUG ABUSE SCREEN 8A PANEL, URINE STAT 07/12/2025 12:21 PM EDT CBC WITH AUTO DIFFERENTIAL STAT 07/12/2025 12:20 PM EDT SALICYLATE LEVEL STAT 07/12/2025 12:2 0 PM EDT ACETAMINOPHEN LEVEL STAT 07/12/2025 1 2:20 PM EDT ETHANOL STAT 07/12/2025 12:20 PM EDT COMPREHENSIVE METABOLIC PANEL STAT 07/12/2025 12:20 PM EDT CBC AND DIFFERENTIAL STAT 07/12/2025 12:20 PM EDT CBC WITH AUTO DIFFERENTIAL STAT 07/07/2025 9:29 AM EDT SALICYLATE LEVEL STAT 07/07/2025 9:29 AM EDT ACETAMINOPHEN LEVEL STAT 07/07/2025 9 :29 AM EDT ETHANOL STAT 07/07/2025 9:29 AM EDT COMPREHENSIVE METABOLIC PANEL STAT 07/07/2025 9:29 AM EDT CBC AND DIFFERENTIAL STAT 07/07/2025 9:29 AM EDT METHADONE SCREEN, URINE STAT 07/07/2025 9:10 AM EDT PHENCYCLIDINE, URINE STAT 07/07/2025 9:10 AM EDT BUPRENORPHINE SCREEN, URINE STAT 07/07/2025 9:10 AM EDT DRUG ABUSE SCREEN 8A PANEL, URINE STAT 07/07/2025 9:10 AM EDT from Last 3 Months Results * Dutton urine culture tube (07/12/2025 12:21 PM EDT) Extra Tube Hold for add-ons. 07/12/2025 3:01 PM EDT [facility] Comment:Auto resulted. Urine Urine specimen obtained by clean catch procedure / Unknown 07/12/2025 12:21 PM EDT 07/12/2025 1:08 PM EDT us Elizabeth Vargas MD LAB URINE ORDERABLES Final Res ult [facility] [address] [place] [address], [place] [phone] * Pearson top urine tube (07/12/2025 12:21 PM EDT) [facility] Extra Tube Hold for add-ons. 07/12/2025 3:01 PM EDT [facility] Comment:Auto resulted. Urine Urine specimen obtained by clean catch procedure / Unknown 07/12/2025 12:21 PM EDT 07/12/2025 1:08 PM EDT us Elizabeth Vargas MD LAB URINE ORDERABLES Final Res ult [facility] [address] [place] [address], [place] [phone] * (ABNORMAL) Drug abuse screen 8a panel, urine (07/12/2025 12:21 PM EDT) Only the most recent of2 resultswithin the time period is included. [facility] Amphetamine Screen, Ur Negative Negative LAB CHEMISTRY METHOD 5 1:48 PM EDT [facility] Comment:Certain OTC medicati ons containing ephedrine, phenylephrine, pseudoephedrine and phenylpropanolamine can cause false positive results. Barbiturate Screen, Ur Negative Negative LAB CHEMISTRY METHOD 5 1:48 PM EDT [facility] Benzodiazepine Screen, Ur Negative Negative LAB CHEMISTRY METHOD 5 1:48 PM EDT [facility] Cocaine Screen, Ur Positive(A ) Negative LAB CHEMISTRY METHOD 5 1:48 PM EDT [facility] Opiate Screen, Ur Negative Negative LAB CHEMISTRY METHOD 5 1:48 PM T [facility] Cannabinoid (THC) Screen, Ur Positive(A ) Negative LAB CHEMISTRY METHOD 5 1:48 PM EDT [facility] Comment:Specimens from patie nts taking pantoprazole sodium (Protonix) have been shown to produce false positive results. Oxycodone Screen, Ur Negative Negative LAB CHEMISTRY METHOD 1:48 PM EDT [facility] Fentanyl, Ur Positive(A ) Negative LAB CHEMISTRY METHOD 1:48 PM EDT [facility] Urine Urine specimen obtained by clean catch procedure / Unknown Non-blood Collection / Unknown 07/12/2025 12:21 PM EDT 07/12/2025 1:08 PM EDT [facility] - 07/12/2025 1:48 PM EDT Assay [...] MD LAB URINE ORDERABLES Final Res ult [facility] [address] [place] [address], * Buprenorphine screen, urine (07/12/2025 12:21 PM EDT) Only the most recent of2 resultswithin the time period is included. Buprenorphine Screen Urine Negative Negative LAB CHEMISTRY METHOD 07/12/2025 1:35 PM EDT [facility] Urine Urine specimen obtained by clean catch procedure / Unknown Non-blood Collection / Unknown 07/12/2025 12:21 PM EDT 07/12/2025 1:08 PM EDT [facility] - 07/12/2025 1:35 PM EDT Assay cutoff 5 ng/mL Semi-quantitative assay for screening purposes only. Unconfirmed screening result should not be used for non-medical purposes. *ALTERNATE METHOD CONFIRMATION DONE UPON REQUEST ONLY* Elizabeth Vargas MD LAB URINE ORDERABLES Final Res ult Performing Organization Address [facility]/ZIP Co de Phone Number [facility] [address] [place] [address], [place] [phone] * Methadone, urine (07/12/2025 12:21 PM EDT) Only the most recent of2 resultswithin the time period is included. Methadone Screen, Urine Negative Negative LAB CHEMISTRY METHOD 07/12/2025 1:35 PM EDT [facility] Comment: Assay cutoff 300 ng/mL [...] ORDERABLES Final Res ult Performing Organization Address [facility] de Phone Number [facility] [address] [place] [address], [place] [phone] * Phencyclidine, urine (07/12/2025 12:21 PM EDT) Only the most recent of2 resultswithin the time period is included. PCP Scrn, Ur Negative Negative LAB CHEMISTRY METHOD 07/12/2025 1:35 PM EDT [facility] Comment: Assay cutoff 25 ng/mL Semi-quantitative assay for screening purposes only. Unconfirmed screening result should not be used for non-medical purposes. *ALTERNATE METHOD CONFIRMATION DONE UPON REQUEST ONLY* Urine Urine specimen obtained by clean catch procedure / Unknown Non-blood Collection / Unknown 07/12/2025 12:21 PM EDT 07/12/2025 1:08 PM EDT Elizabeth Vargas MD LAB URINE ORDERABLES Final Res ult [facility] [address] [place] [address], * (ABNORMAL) CBC auto differential (07/12/2025 12:20 PM EDT) Only the most recent of2 resultswithin the time period is included. WBC 6.0 4.8 - 10.8 K/mcL LAB HEMETOLOGY METHOD 07/12/2025 1:20 PM EDT [facility] RBC 4.30 3.80 - 4.80 M/mcL LAB HEMETOLOGY METHOD 07/12/2025 1:20 PM EDT [facility] Hemoglobin 11.5 11.5 - 16.0 g/dL LAB HEMETOLOGY METHOD 07/12/2025 1:20 PM EDT [facility] Hematocrit 35.7 35.0 - 47.0 % LAB HEMETOLOGY METHOD 07/12/2025 1:20 PM EDT [facility] MCV 83.8 79.0 - 98.0 FL LAB HEMETOLOGY METHOD 07/12/2025 1:20 PM EDT [facility] MCH 27.0 27.0 - 32.0 pcg LAB HEMETOLOGY METHOD 07/12/2025 1:20 PM EDT [facility] MCHC 32.2 32.0 - 37.0 g/dL LAB HEMETOLOGY METHOD 07/12/2025 1:20 PM EDT [facility] RDW 14.6 11.0 - 15.0 % LAB HEMETOLOGY METHOD 07/12/2025 1:20 PM EDT [facility] Platelets 421(H) 130 - 400 K/mcL LAB HEMETOLOGY METHOD 07/12/2025 1:20 PM EDT [facility] MPV 9.8 7.0 - 11.0 FL LAB HEMETOLOGY METHOD 07/12/2025 1:20 PM EDT [facility] NRBC 0.0 <1.0 % LAB HEMETOLOGY METHOD 07/12/2025 1:20 PM EDT [facility] NRBC Absolute 0.00 <0.10 K/mcL LAB [facility]EMETOLOGY [facility] Neutrophils Relative 43.8 % LAB HEMETOLOGY METHOD 07/12/2025 1:20 PM EDT [facility] Lymphocytes Relative 37.2 % LAB HEMETOLOGY METHOD 07/12/2025 1:20 PM EDT [facility] Monocytes Relative 7.5 % LAB HEMETOLOGY METHOD 07/12[facility]2025 [facility] Eosinophils Relative 10.5 % LAB HEMETOLOGY METHOD 07/12/2025 1:[address] [facility] Basophils Relative 0.8 % LAB HEMETOLOGY METHOD 07/12/2025 1:[address] [facility] Immature Granulocytes Relative 0.2 % LAB HEMETOLOGY METHOD 07/12/2025 1:[address] [facility] Neutrophils Absolute 2.62 1.50 - 7.00 K/mcL LAB HEMETOLOGY METHOD 07/12[facility]2025 [facility] Lymphocytes Absolute 2.23 1.00 - 5.00 K/mcL LAB HEMETOLOGY METHOD 07/12/2025 1:20 PM EDT [facility] Monocytes Absolute 0.45 0.20 - 1.00 K/mcL LAB HEMETOLOGY METHOD 07/12[facility]2025 [facility] Eosinophils Absolute 0.63(H) 0.00 - 0.50 K/mcL LAB HEMETOLOGY METHOD 07/12/2025 [facility] Basophils Absolute 0.05 0.00 - 0.20 K/mcL LAB HEMETOLOGY METHOD 07/12/2025 1:20 PM EDT [facility] Immature Granulocytes Absolute 0.01 0.00 - 0.03 K/[facility] LAB HEMETOLOGY METHOD 07/12/2025 1:20 PM EDT [facility] Blood Venous blood specimen / Unknown Venipuncture / Unknown 07/12/2025 12:20 PM EDT 07/12/2025 1:08 PM EDT us Elizabeth Vargas MD LAB BLOOD ORDERABLES Final Res ult Performing Organization Address City/[facility]/ZIP Co de Phone Number [facility] [address] [place] [address], [place] [phone] * Ethanol (07/12/2025 12:20 PM EDT) Only the most recent of2 resultswithin the time period is included. Ethanol Level <3 0 - 10 mg/dL LAB CHEMISTRY METHOD 07/12/2025 1:35 PM EDT [facility] Blood Venous blood specimen / Unknown Venipuncture / Unknown 07/12/2025 12:20 PM EDT 07/12/2025 1:08 PM EDT us Elizabeth Vargas MD LAB BLOOD ORDERABLES Final Res ult Performing Organization Address City/[facility]/ZIP Co de Phone Number [facility] [address] [place] [address], [place] [phone] * (ABNORMAL) Acetaminophen level (07/12/2025 12:20 PM EDT) Only the most recent of2 resultswithin the time period is included. Acetaminophen Level <2.0(L) 10.0 - 30.0 mcg/mL LAB CHEMISTRY METHOD 07/12/2025 1:35 PM EDT [facility] Blood Venous blood specimen / Unknown Venipuncture / Unknown 07/12/2025 12:20 PM EDT 07/12/2025 1:08 PM EDT us Elizabeth Vargas MD LAB BLOOD ORDERABLES Final Res ult Performing Organization Address [facility]/ZIP Co de Phone Number [facility] [address] [place] [address], [place] [phone] * (ABNORMAL) Salicylate level (07/12/2025 12:20 PM EDT) Only the most recent of2 resultswithin the time period is included. Salicylate Level <1.7(L) 2.0 - 29.0 mg/dL LAB CHEMISTRY METHOD 07/12/2025 1:35 PM EDT [facility] Blood Venous blood specimen / Unknown Venipuncture / Unknown 07/12/2025 12:20 PM EDT 07/12/2025 1:08 PM EDT us Elizabeth Vargas MD LAB BLOOD ORDERABLES Final Res ult Performing Organization Address City/[facility]/ZIP Co de Phone Number [facility] [address] [place] [address], [place] [phone] * Comprehensive metabolic panel (07/12/2025 12:20 PM EDT) Only the most recent of2 resultswithin the time period is included. Sodium 142 133 - 145 mmol/L LAB CHEMISTRY METHOD 07/12/2025 1:35 PM EDT [facility] Potassium 4.4 3.5 - 5.5 mmol/L LAB CHEMISTRY METHOD 07/12/2025 1:35 PM EDT [facility] Chloride 107 96 - 110 mmol/L LAB CHEMISTRY METHOD 07/12/2025 1:35 PM EDT [facility] CO2 29 21 - 32 mmol/L LAB CHEMISTRY METHOD 07/12/2025 1:35 PM EDT [facility] Anion Gap 6 3 - 11 LAB CHEMISTRY METHOD 07/12/2025 1:[address] [facility] Glucose 81 70 - 100 mg/dL LAB CHEMISTRY METHOD 07/12/2025 1:[address] [facility] BUN 10 5 - 25 mg/dL LAB CHEMISTRY METHOD 07/12/2025 1:[address] [facility] Creatinine 0.90 0.50 - 1.10 mg/dL LAB CHEMISTRY METHOD 07/12/2025 1:[address] [facility] eGFR 82 >=60 mL/min/1. 73m2 LAB CHEMISTRY METHOD 07/12/2025 1:[address] [facility] Comment:Calculation based on the Chronic Kidney Disease Epidemiology Collaboration (CKD-EPI) equation refit without adjustment for race. BUN/Creatinine Ratio 11.1 LAB CHEMISTRY METHOD 07/12/2025 1:[address] [facility] Calcium 9.2 8.5 - 10.5 mg/dL LAB CHEMISTRY METHOD 07/12/2025 1:[address] [facility] AST (SGOT) 12 10 - 42 unit/L LAB CHEMISTRY METHOD 07/12/2025 1:[address] [facility] ALT (SGPT) 14 10 - 60 unit/L LAB CHEMISTRY METHOD 07/12/2025 1:[address] [facility] Alkaline Phosphatase 55 42 - 121 unit/L LAB CHEMISTRY METHOD 07/12/2025 1:[address] [facility] Total Protein 6.7 6.0 - 8.0 g/dL LAB CHEMISTRY METHOD 07/12/2025 1:[address] [facility] Albumin 3.5 3.2 - 5.0 g/dL LAB CHEMISTRY METHOD 07/12/2025 1:[address] [facility] Total Bilirubin 0.4 0.0 - 1.4 mg/dL LAB CHEMISTRY METHOD 07/12/2025 1:[address] [facility] Blood Venous blood specimen / Unknown Venipuncture / Unknown 07/12/2025 12:20 PM EDT 07/12/2025 1:08 PM EDT us Elizabeth Vargsa MD LAB BLOOD ORDERABLES Final Res ult [facility] [address] [place] [address], from Last 3 Months Insurance MEDICARE MEDICAID - [place] Care Teams Gallery Host Relationship Specialty Start Date End Date Physician, No Pcp PCP - General 03/01/25
--- NOTE | 2025-07-12 16:42 | PC.NURSE ---
biba s/p being d/c'd from [place] approx. 30 minutes prior to [facility] arrival. hx schizoaffective disorder. pt presents to the ED reporting SI w/o specific plan d/t increased AH/VH. denies HI. increased ETOH/substance use x the past few days. pt reports compliance w/ medication but states, they are not right for me. pt reports she does not have a therapist and is no longer working w/ [facility]. upon ED arrival, pt a&ox4. vss and up to date. labs obtained/sent to lab. pt notified/aware that urine specimen is needed/will supply one when able. pt waiting to see care at this time. on RA w/o difficulty. no sob/wob noted. respirations even/unlabored. plan of care ongoing. 1:1 sitter present.
--- NOTE | 2025-07-12 16:43 | ED_ITS ---
HPI - Psych General Chief Complaint: Psychiatric Symptoms Stated Complaint: auditory hallucinations Time Seen by Provider: 07/12/25 16:04 Source: patient Mode of arrival: EMS Limitations: no limitations History of Present Illness ED Provider: Dr. Kavitha Alvarez HPI Narrative: Patient comes to the emergency room complaining of increased anxiety, depression. Patient states that he is suicidal with no plan. Patient was discharged from [facility] 30 minutes prior to calling 911 to come here. Patient states that she is not doing well and she has no idea why they discharged her. Patient states that she feels mentally unstable. Denies homicidal ideation. Patient reports that she takes her medications as prescribed but they do not work for her Related Data Previous Rx's ?Medication ?Instructions ?Recorded amoxicillin 875 mg-potassium 1 tab PO BID 5 days #10 t abs 11/26/24 clavulanate 125 mg tablet baclofen 10 mg tablet 15 mg (1.5 x 10 mg) PO TID 3 0 days 11/26/24 #135 tabs bupropion HCl 75 mg tablet 75 mg PO DAILY 30 days #30 tabs 11/26/24 divalproex 500 mg tablet,extended 1,000 mg (2 x 500 mg ) PO BEDTIME 11/26/24 release 24 hr 30 days #60 tabs fluticasone propionate 50 1 spray intranasal DAILY 3 d ays #1 11/26/24 mcg/actuation nasal inhaler spray,suspension hydroxyzine HCl 25 mg tablet 25 mg PO BID PRN Anxiety 30 days 11/26/24 #60 tabs nicotine 21 mg/24 hr daily 21 mg transdermal DAILY 28 days 11/26/24 transdermal patch #28 ea olanzapine 5 mg tablet 5 mg PO BID PRN agitation 30 days 11/26/24 #60 tabs risperidone 2 mg tablet 4 mg (2 x 2 mg) PO BID 30 da ys 11/26/24 #120 tabs trazodone 50 mg tablet 50 mg PO BEDTIME 30 days #30 tabs 11/26/24 Allergies Allergy/AdvReac Type Severity Reaction Status Date / Time quetiapine (From Seroquel) Allergy Hallucinati Verified 07/12/25 15:39 ons haloperidol (From Haldol) AdvReac Hallucinati Verified 07/12/25 15:39 ons Review of Systems 2 Review of Systems: Constitutional : No Weight loss, No Fever, No Chills, No Night Sweats, No Fatigue, No Malaise ENT/Mouth : No Hearing loss, No Ear Pain, No Nasal Congestion, No Sinus Pain, No Hoarseness, No sore throat, No Rhinorrhea, No Swallowing Difficulty Eyes: No Eye Pain, No Swelling, No Redness, No Foreign Body, No Discharge, No Vision Changes Cardiovascular : No Chest Pain, No SOB, No Dyspnea on Exertion, No Orthopnea, No Edema, No Palpitations Respiratory : No Cough, No Sputum, No Wheezing, No Smoke Exposure, No Dyspnea Gastrointestinal : No Nausea, No Vomiting, No Diarrhea, No Constipation, No abdominal Pain, No Hematochezia, No Melena Genitourinary : no irregular bleeding, No Dysuria, No Urinary Frequency, No Hematuria, No Urinary Incontinence, No Urgency, No Flank Pain, No Urinary Flow Changes, No Hesitancy Musculoskeletal : No joint pain, No Myalgias, No Joint Swelling Skin : No Skin Lesions, No rash Neuro : No Weakness, No Numbness, No Paresthesias, No Loss of Consciousness, No Dizziness, No Headache Psych : Patient complaining of anxiety, depression, hallucinations, admits to polysubstance abuse Heme/Lymph: No Bruising, No Bleeding,No Lymphadenopathy Endocrine : No Polyuria, No Polydipsia, No Temperature Intolerance PMFSH Past Medical History Medical History Medical clearance for psychiatric admission Substance induced mood disorder Suicidal ideation Chronic post-traumatic stress disorder (PTSD) Cannabis use disorder, moderate, dependence Cocaine use disorder Schizoaffective disorder Social History Social History Household Members: Family Household Members Other:: father Housing: Apartment Housing Other:: [address] [place] [address] Do you presently have visiting nurse or other home services: No Alcohol intake: current Alcohol intake frequency: a few times a week Alcohol type: hard liquor Comment: no additional interventions needed Patient Tobacco Use Status: Current everyday Tobacco user Tobacco use type: Cigarette Cigarette Packs Per Day: 1 Cigarettes Per Day: 20.0 Years Smoked: 5 Smoked in Last 30 Days: Yes e-Cigarette/Vaping Use: Never Used Second Hand Smoke Exposure: No Use of substances other than those prescribed or required for medical reasons: Yes Substance Use Type: Crack/Cocaine and Marijuana Advance Directives: No Advance Directives Information Provided: No Do you have a plan to hurt others: No Plan Patient : No service: No Sexual orientation: Straight/Heterosexual Physical Exam 2 Exam: Exam: Appearance: Alert. Oriented X3. No acute distress. Eyes: Pupils equal, round and reactive to light. ENT: Pharynx normal. Neck: Normal inspection. Neck supple. No lymph nodes noted. No crepitus CVS: Normal heart rate and rhythm. Pulses normal. Normal S1 and S2 Respiratory: No respiratory distress. Breath sounds normal. No Wheezing. No rales Abdomen: Soft and nontender. No rigidity. No distention. Skin: Skin warm and dry. Normal skin color. Normal skin turgor. Extremities: No lower extremity edema. No Lacerations. No Rash Neuro: Oriented X 3. No motor deficit. No sensory deficit. Moving all extremities. No slurred speech. CN 2 through 12 grossly intact Psych: calm, cooperative, normal affect Vital Signs: Vital Signs: Last Vital Signs Temp 97.8 F 07/13/25 05:38 Pulse 52 07/13/25 05:38 Resp 17 07/13/25 05:38 BP 129/66 07/13/25 05:38 Pulse Ox 94 07/13/25 05:38 O2 Del Method Room Air 07/13/25 05:38 BMI result Body Mass Index 22.7 Course Course Course Narrative: Patient reports hallucinations, vague SI, no HI, was discharged from [facility] for behavioral health 30 minutes prior to calling 911 to come to this hospital. All of patient's labs and imaging pending Care team consult pt Physician observation started at 16:45 Reevaluation(s) Reevaluation #1: Time: 06:28 Date: 07/13/25 Provider: Estefania Paredes DO Patient in physician observation for psychiatric evaluation.? No acute events reported overnight. No current complaints. VS stable.? Pending CARE team evaluation. Will continue to monitor. Reevaluation #2: Time: 10:05 Date: 07/13/25 Provider: Estefania Paredes DO Physician observation ended at 1005am Patient has been cleared for discharge by the CARE team. Will follow up as an outpatient. Medications Administered Discontinued Medications Generic Name Dose Route Start Last Admin Trade Name Freq PRN Reason Stop Dose Admin Lorazepam 2 mg 07/12/25 20:00 07/12/25 20:05 Lorazepam 1 Mg Tablet PO 07/12/25 20:01 2 mg ONCE ONE Administration Ziprasidone 20 mg 07/12/25 20:01 07/12/25 20:21 Ziprasidone 20 Mg Capsule PO 07/12/25 20:02 20 mg ONCE ONE Administration Medical Decision Making Medical Decision Making [facility] Narrative: My interpretation of labs: No significant abnormality, chronic anemia. Chemistry within normal limits, normal LFTs, negative for UTI, large amount of squamous epithelial cells, contaminant, U tox positive for cocaine and marijuana Differential Diagnosis Differential Diagnoses: The differential diagnosis associated with the presentation includes (Anxiety, depression, polysubstance abuse, schizophrenia, schizoaffective disorder) Admission/Observation Consideration of admission/observation: Escalation of care including admission/observation considered (Given patient's symptoms and complaints, patient is waiting to be seen by behavioral health to determine patient's disposition) Lab Data 07/12/25 16:42 07/12/25 16:42 Labs: Lab Results 07/12/25 07/12/25 Range/Units 16:42 18:42 WBC 7.3 (4.8-10.8) X10*3/uL RBC 4.24 (4.20-5.50) X10*6/uL Hgb 11.5 L (12.0-16.0) g/dl Hct 34.7 L (37.0-47.0) % MCV 81.8 (80.0-98.0) fL MCH 27.1 (27.0-33.0) pg MCHC 33.1 (31.0-35.0) g/dl RDW 14.8 (11.0-16.0) % Plt Count 379 (160-400) X10*3/uL MPV 9.3 L (9.4-12.3) fL Immature Gran % (Auto) 0.1 (0.0-0.4) % Neut % (Auto) 50.6 (45-73) % Lymph % (Auto) 32.1 (20-40) % [place] % (Auto) 7.4 (2-11) % Eos % (Auto) 9.3 H (0-4) % Baso % (Auto) 0.5 (0-2) % Lymph # (Auto) 2.3 (1.2-4.9) X10*3/uL [place] # (Auto) 0.5 (0.1-1.2) X10*3/uL Eos # (Auto) 0.7 H (0.0-0.4) X10*3/uL Baso # (Auto) 0.0 (0.0-0.2) X10*3/uL Abs Immat Gran (auto) 0.01 (0.00-0.03) X10*3/uL Absolute Neuts (auto) 3.7 (2.0-8.3) x10*3/uL Absolute Nucleated RBC 0.000 (0.0-0.012) X10*3/uL Nucleated RBC % (auto) 0.0 (0.0-0.2) /100WBC Sodium 142 (135-145) mmol/L Potassium 4.1 (3.3-5.1) mmol/L Chloride 110 H (96-108) mmol/L Carbon Dioxide 22 (22-29) mmol/L Anion Gap 14 (12-20) BUN 12 (9-16) mg/dL Creatinine 0.79 (0.5-1.4) mg/dL Estim Creat Clear Calc 72.6 Estimated GFR > 60 Random Glucose 95 (60-115) mg/dL Calcium 9.0 (8.4-10.2) mg/dL Magnesium 2.1 (1.6-2.6) mg/dL Total Bilirubin 0.2 (0.0-1.0) mg/dL AST 18 (5-31) U/L ALT 10 (0-31) U/L Alkaline Phosphatase 52 (39-117) U/L Total Protein 6.8 (6.5-8.0) g/dL Albumin 3.9 (3.5-5.0) g/dL Urine Color Yellow Urine Appearance Cloudy Urine pH 7.0 (5.0-9.0) Ur Specific [place] >= 1.030 H (1.005-1.025) Urine Protein Trace (Neg-Trace) mg/dL Urine Glucose (UA) Negative (Negative) mg/dL Urine Ketones Trace (Negative) mg/dL Urine Blood Negative (Negative) Urine Nitrite Negative (Negative) Ur Leukocyte Esterase Trace H (Negative) Urine RBC 0-2 (0-2) /HPF Urine WBC 0-5 (0-5) /HPF Ur Squamous Epith Cells 11-20 (0-2) /HPF Urine Bacteria 2+ (None Seen) Hyaline Casts 3-5 (0-2) /LPF Salicylates < 5.0 L (15-30) mg/dL Urine Opiates Screen Not Detected (Not Detect) Ur Buprenorphine Scrn Not Detected (Not Detect) ng/mL Ur Oxycodone Screen Not Detected (Not Detect) ng/mL Urine Methadone Screen Not Detected (Not Detect) ng/mL Urine Fentanyl Screen Not Detected (Not Detect) Acetaminophen < 3 (<30) mcg/mL Ur Barbiturates Screen Not Detected (Not Detect) Ur Phencyclidine Scrn Not Detected (Not Detect) Ur Amphetamines Screen Not Detected (Not Detect) U Benzodiazepines Scrn Not Detected (Not Detect) Urine Cocaine Screen POSITIVE H (Not Detect) U Marijuana (THC) Screen POSITIVE H (Not Detect) Ethyl Alcohol < 10 mg/dL Critical Care Time Critical Care Time Critical Care Time: Yes Total Critical Care Time: 35 Attestation: I have personally provided critical care time. Time includes review of lab data, radiology results, discussion with consultants, and monitoring for potential decompensation. Intervention performed as documented. Discharge Plan Discharge Clinical Impression: Auditory hallucination Patient Disposition: Home, Self-Care Instructions: Hallucinations (ED) Additional Instructions: You were seen in our Emergency Department today for treatment of a behavioral health issue. It is important after your visit that you follow up with either your behavioral health provider or a primary care doctor within 7 days.? If you have trouble finding a therapist you can reach out to [address] [phone] The National Suicide and Crisis Lifeline can be reached 7 days a week 24 hours a day.? Call 988 to speak with someone.? Return for any worsening symptoms or concerns such as thoughts of self harm or harm to others. Please call 911 if you feel your mental health is worsening.? Prescriptions: No Action amoxicillin-pot clavulanate 875-125 mg Tablet 1 tab PO BID 5 Days Qty: 10 0RF risperidone 2 mg Tablet 4 mg PO BID 30 Days Qty: 120 0RF fluticasone propionate 50 mcg/actuation [place],Suspension 1 spray intranasal DAILY 3 Days Qty: 1 0RF trazodone 50 mg tablet 50 mg PO BEDTIME 30 Days Qty: 30 0RF olanzapine 5 mg tablet 5 mg PO BID PRN (Reason: agitation) 30 Days Qty: 60 0RF baclofen 10 mg Tablet 15 mg PO TID 30 Days Qty: 135 0RF divalproex 500 mg Tablet Extended Release 24 Hr 1,000 mg PO BEDTIME 30 Days Qty: 60 0RF bupropion HCl 75 mg tablet 75 mg PO DAILY 30 Days Qty: 30 0RF nicotine 21 mg/24 hr Patch 24 Hour 21 mg transdermal DAILY 28 Days Qty: 28 0RF hydroxyzine HCl 25 mg Tablet 25 mg PO BID PRN (Reason: Anxiety) 30 Days Qty: 60 0RF Interventions: Colbert-Suicide Risk Severity Scale Last Done: 07/12/25 15:54 Print Language: Gambian
[2025-07-12 16:46] LABS: MANUAL DIFF FLAG NO
[2025-07-12 16:47] LABS: Hematocrit 34.7 % (37.0-47.0); Hemoglobin 11.5 g/dl (12.0-16.0); Imm Gran Abs Auto 0.01 X10*3/uL (0.00-0.03); Imm Gran Pct Auto 0.1 % (0.0-0.4); Lymphocytes Absolute Auto 2.3 X10*3/uL (1.2-4.9); Mean Corpuscular HGB Conc 33.1 g/dl (31.0-35.0); Mean Corpuscular Hemoglobin 27.1 pg (27.0-33.0); Mean Corpuscular Volume 81.8 fL (80.0-98.0); NRBC Abs Auto 0.000 X10*3/uL (0.0-0.012); NRBC Pct Auto 0.0 /100WBC (0.0-0.2); Platelet Count 379 X10*3/uL (160-400); Red Blood Count 4.24 X10*6/uL (4.20-5.50); White Blood Count 7.3 X10*3/uL (4.8-10.8)
[2025-07-12 17:18] LABS: Acetaminophen LAB < 3 mcg/mL (<30); Alanine Aminotransferase 10 U/L (0-31); Albumin Level 3.9 g/dL (3.5-5.0); Alkaline Phosphatase 52 U/L (39-117); Anion Gap 14 (12-20); Aspartate Amino Transferase 18 U/L (5-31); Blood Urea Nitrogen 12 mg/dL (9-16); Calcium 9.0 mg/dL (8.4-10.2); Carbon Dioxide 22 mmol/L (22-29); Chloride 110 mmol/L (96-108); Creatinine Clr Calc Pharmacy 72.6; Estimated Glomerular Filt Rate > 60; Magnesium 2.1 mg/dL (1.6-2.6); Potassium 4.1 mmol/L (3.3-5.1); Salicylate < 5.0 mg/dL (15-30); Sodium 142 mmol/L (135-145); Total Protein 6.8 g/dL (6.5-8.0)
--- NOTE | 2025-07-12 17:31 | PC.NURSE ---
Addendum entered by Carolyn Mabry 07/12/25 18:19: per care team, pt will be an inpatient bed search. pt aware/agreeable to plan of care. plan of care ongoing. Original Note: pt speaking w/ care team at this time.
--- NOTE | 2025-07-12 18:43 | PC.NURSE ---
pt ambulated to the restroom w/ a strong/steady gait. no use of assistive devices needed. urine specimen obtained/sent to lab.
[2025-07-12 19:00] LABS: Appearance Urine Cloudy; Glucose Urine UA Negative (Negative); PH 7.0 (5.0-9.0); Specific Gravity - Urine >= 1.030 (1.005-1.025); UMIC TRIGGER UACC YES
[2025-07-12 19:38] VITALS: BP 100/42; PULSE 63; RESP 18; TEMP 36.5; O2SAT 97
[2025-07-12 19:39] LABS: Cannabinoid Screen Urine POSITIVE (Not Detect)
[2025-07-13 01:16] VITALS: BP 102/50; PULSE 71; RESP 16; TEMP 36.8; O2SAT 97
[2025-07-13 05:38] VITALS: BP 129/66; PULSE 52; RESP 17; TEMP 36.6; O2SAT 94
--- NOTE | 2025-07-13 08:46 | PC.NURSE ---
Pt noted to have a head wrap on. This RN took belonging and placed in camron port with pt other belongings- pt in agreement and understands safety concerns. Pt allowed use of pt phone. Updated pt on plan for Inpatient Bed Search- pt requesting to leave today and have friend pick her up. Pt educated on section 12 and risk of safety to self requiring admission to Inpatient Psych floor. Pt understands, remained calm/cooperative throughout conversation with this RN. 1:1 sitter remains at bedside with patient. Pt ambulatory to the bathroom with steady gait.
[2025-07-13 10:19] VITALS: BP 122/76; PULSE 60; RESP 15; TEMP 36.6; O2SAT 99
--- NOTE | 2025-07-13 10:28 | MHC.CARE ---
Care team met with Pt at bedside. Pt no longer presents as an imminent risk or meets the criteria for IPLOC. Pt will D/C to follow up with current providers.
== END 2025-07-13 10:20 | disposition home or self-care (01) ==
PROVIDERS: Emergency Provider Emergency Medicine
DX: R44.0 Auditory hallucinations (principal); R45.851 Suicidal ideations
CPT/HCPCS: 36415; 80053; 80143; 80179; 80307; 81001; 83735; 85025; 99285; S9485

== ENCOUNTER 2025-08-31 18:37 | Inpatient (IN) | payer MEDICARE, MEDICAID, SELFPAY ==
--- OUTSIDE RECORDS SUMMARY | 2024-08-18 07:00 | XMS_ITS ---
Author Organization [facility] Address [address] [place] [address] Care Team Providers Care Hogshead Packer Name Role Phone [facility] Primary [facility] Provi umu [phone] Mena Shannon Unavailable ZZArchive - DO NOT USE, [facility] Sneha vailable Unavailable Encounters Encounter Location Date Provider Diagnosis [facility] [address], [place] [phone] 08/18/2024 Mena Shannon Plan Of Treatment No Information Progress Notes * Taye NEGROOB:09/12 (44 yo F)Acc No.[id number]:08/18/2024 Case Management Patient: Dianne RUELAS Narcisa MADERA Provider: Magdalena Shannon :1980 A ge:43 Y S ex:Female Date:08/18/2024 Address:[place] [address] Pcp:[facility] nt Subjective: * Chief Complaints: * * Medical History: Objective: Assessment: Plan: * Treatment: * Images: Billing Information: * Visit Code: * Procedure Codes: Care Plan Details* * Electronic signature of Rudy Shannon on 08/31/2025 at 09:28 PM EDT Sign off status: Pending * Provider: Magdalena Shannon Date: Generated for Ric brooks/Farhad/eTransmitting on: 09:28 PM EDT
--- OUTSIDE RECORDS SUMMARY | 2025-05-07 09:15 | XMS_ITS ---
Author Organization [facility] Address [address] [place] [address] Care Team Providers Care Rush Seater Name Role Phone [facility] Primary Care Provi umu [phone] Mena Shannon Unavailable ZZArchive - DO NOT USE, [facility] Sneha vailable Unavailable Encounters Encounter Location Date Provider Diagnosis [facility] [address], [place] [phone] 05/07/2025 Mena Shannon Plan Of Treatment No Information Progress Notes * Taye NEGROOB:[birth year]/12 (44 yo F)Acc No.[id number]:05/07/2025 Case Management Patient: Dianne RUELAS Narcisa MADERA Provider: Magdalena Shannon :1980 A ge:44 Y S ex:Female Date:05/07/2025 Address:[place] [address] Pcp:[facility] nt Subjective: * Chief Complaints: * * Medical History: Objective: Assessment: Plan: * Treatment: * Images: Billing Information: * Visit Code: * Procedure Codes: Care Plan Details* * Electronic signature of Rudy Shannon on 08/31/2025 at 09:27 PM EDT Sign off status: Pending * Provider: Magdalena Shannon Date: 0 05/07/2025 Generated for Ric brooks/Farhad/eTransmitting on: 1 09:27 PM EDT
--- OUTSIDE RECORDS SUMMARY | 2025-05-24 09:15 | XMS_ITS ---
Author Organization [facility] Address [address] [place] [address] Care Team Providers Care Video Software Engineer Name Role Phone [facility] Primary Care Provi umu [phone] Mena Shannon Unavailable ZZArchive - DO NOT USE, [facility] Sneha vailable Unavailable Encounters Encounter Location Date Provider Diagnosis [facility] [address] [place], [place] [phone] 05/24/2025 Mena Shannon Plan Of Treatment No Information Progress Notes * Taye NEGROOB:[birth year] (44 yo F)Acc No.[id number]:05/24/2025 Case Management Patient: Dianne RUELAS Narcisa MADERA Provider: Magdalena Shannon :1980 A ge:44 Y S ex:Female Date:05/24/2025 Address:[place] [address] Pcp:[facility] nt Subjective: * Chief Complaints: * * Medical History: Objective: Assessment: Plan: * Treatment: * Images: Billing Information: * Visit Code: * Procedure Codes: Care Plan Details* * Electronic signature of Rudy Shannon on 08/31/2025 at 09:26 PM EDT Sign off status: Pending * Provider: Magdalena Shannon Date: 0 05/24/2025 Generated for Ric brooks/Farhad/eTransmitting on: 1 09:26 PM EDT
--- OUTSIDE RECORDS SUMMARY | 2025-07-24 17:00 | XMS_ITS ---
Author Organization [facility] Address [address] [place] [id number] Care Team Providers Care Student Financial Services Counselor Name Role Phone [facility] Care Provi umu [phone] Mena Shannon Unavailable ZZArchive - DO NOT USE, [facility] Sneha vailable Unavailable Migration, Provider Unavailable Unavailable Allergies Allergen (clinical drug ingredient) Drug/Non Drug Allergy documented on EMR Reaction Allergy Type Onset Date Status Haldol racing thoughts Drug Allergy A ctive quetiapine SEROquel drowsiness, extreme Drug Allergy Active REASON FOR VISIT [facility] To [facility] Conversion Encounter Medications Medication SIG (Take, Route, Frequency, Duration) Notes Start Date End Date Status Citalopram Hydrobromide 20 MG 1 tab(s) orally once a day A ctive hydrOXYzine HCl 50 MG 1 tab(s) orally 3 times a day PRN anxiety Active Nicoderm CQ 7 MG/24HR 1 PATCH transderma lly once a day Active OLANZapine 15 MG 1 tab(s) orally QHS Active cloNIDine HCl 0.1 MG 1 tab(s) orally PRN Active OLANZapine 5 MG one tab orally daily in am Active Citalopram Hydrobromide 20 MG 1 tab(s) orally once a day for 30 day(s) Active Encounters Encounter Location Date Provider Diagnosis [address] [address] 07/24/2025 Provider Migration Plan Of Treatment No Information Progress Notes * Taye NEGROOB:09/12 (44 yo F)Acc No.[id number]:07/24/2025 Patient: Dianne SERJIOElham Narcisa MADERA Provider: :1980 A ge:44 Y S ex:Female Date:07/24/2025 Address:[place] [address] Pcp:[facility] [place] Subjective: * Chief Complaints: * 1 . Multum To Medispan Conversion Encounter. * Medical History: * Medications: T aking OLANZapine 5 MG Tablet one tab orally daily in am , Taking Citalopram Hydrobromide 20 MG Tablet 1 tab(s) orally once a day , Taking Citalopram Hydrobromide 20 MG Tablet 1 tab(s) orally once a day , Taking hydrOXYzine HCl 50 MG Tablet 1 tab(s) orally 3 times a day PRN anxiety , Taking Nicoderm CQ 7 MG/24HR Patch 24 Hour 1 PATCH transdermally once a day , Taking OLANZapine 15 MG Tablet 1 tab(s) orally QHS , Taking cloNIDine HCl 0.1 MG Tablet 1 tab(s) orally PRN , Taking OLANZapine 5 MG Tablet one tab orally daily in am * Allergies: H aldol: racing thoughts, SEROquel: drowsiness, extreme. Objective: * Vitals: Assessment: Plan: * Treatment: * Images: Billing Information: * Visit Code: * Procedure Codes: * Electronic signature of Prov ider Migration on 08/31/2025 at 09:27 PM EDT Sign off status: Pending * Provider: Date: 0 07/24/2025 Generated for Ric brooks/Farhad/Beti on: 1 09:27 PM EDT
--- OUTSIDE RECORDS SUMMARY | 2025-08-03 07:00 | XMS_ITS ---
Author Organization [facility] Address [address] [place] [address] Care Team Providers Care Puppet Developer Name Role Phone [facility] Primary Care Provi umu [phone] Mena Shannon Unavailable ZZArchive - DO NOT USE, [facility] Sneha vailable Unavailable Encounters Encounter Location Date Provider Diagnosis [facility] [address], [place] [id number] 08/03/2025 Mena Shannon Plan Of Treatment No Information Progress Notes * Taye NEGROOB:[birth year]12 (44 yo F)Acc No.[id number]:08/03/2025 Case Management Patient: Dianne RUELAS Narcisa MADERA Provider: Magdalena Shannon :1980 A ge:44 Y S ex:Female Date:08/03/2025 Address:[place] [address] Pcp:[facility] Subjective: * Chief Complaints: * * Medical History: Objective: Assessment: Plan: * Treatment: * Images: Billing Information: * Visit Code: * Procedure Codes: Care Plan Details* * Electronic signature of Rudy Shannon on 08/31/2025 at 09:26 PM EDT Sign off status: Pending * Provider: Magdalena Shannon Date: 0 08/03/2025 Generated for Ric brooks/Farhad/eTransmitting on: 1 09:26 PM EDT
[2025-08-31 19:14] VITALS: BP 120/64; PULSE 76; RESP 16; TEMP 36.9; O2SAT 99
[2025-08-31 19:18] VITALS: BMI 24.7
--- NOTE | 2025-08-31 19:20 | PC.ADMIT ---
Addendum entered by Raulito Devlin RN 09/01/25 02:07: Patient signed a CV with provider on the unit. Med reconciliation completed. Skin check was unremarkable. Patient was oriented to the unit. Visitor, telephone policies were explained to patient. She is resting in bed, eyes closed. Continues on safety checks every 15 minutes. Original Note: Pt is a 44 y/o female with a history of? polysubstance use disorder (alcohol, cocaine, nicotine), SI, and Schizophrenia who was brought to @ 19:00 from [facility] on a 12B for the treatment of SI + attempt via toxic ingestion of 6 x 2mg risperidone. Pt was at home when she called PD and reported that she had attempted to intentionally OD on risperidone. Pt had reported that she took 6 x 2mg risperidones in an attempt to end her life. Pt hears voices telling her to kill herself and continues to endorse SI. Pt also sees ?people looking at me?. Pt w/ poor insight, judgment, and impulse control. She has had several IPLOC admissions in the past years - 17 psych admissions between [id number] + numerous others since then including here on M5 & M3. Admission assessment has not been completed + has been passed on to assistant shift supervisor RN.
--- OUTSIDE RECORDS SUMMARY | 2025-08-31 21:26 | XMS_ITS | Clinical Summary ---
Author Organization [facility] Address [address] [place] [address] Care Team Providers Care Plodding Operator Name Role Phone Unavailable Primary Care Provider Unavailabl e Medications * This document contains information received from the source organization and may not represent a complete record from that organization. mirtazapine (REMERON) 15 MG tabletIndicatio ns:Moderate depressed bipolar I disorder (HCC) TAKE 1 TABLET BY MOUTH AT BEDTIME 30 tablet 3 11/28/2021 Active ferrous sulfate 324 (65 Fe) MG Tablet Delayed ResponseIndicat ions:Moderate depressed bipolar I disorder (HCC) TAKE 1 TABLET BY MOUTH EVERY DAY 30 tablet 3 11/28/2021 Active Social History Tobacco Use Types Packs/Day Years Used Date Smoking Tobacco: Never Assessed Comments Unknown Sex and Gender Information Value Date Recorded Sex Assigned at Not on file Legal Sex Female 1:00 PM EDT Gender Identity Not on file Sexual Orientation Not on file Plan of Treatment Health Maintenance Due Date Last Done Comments Hepatitis C Virus Screening 1980 HIV Screening 1994 DTaP/Tdap/Td Vaccines (1 - Tdap) 2000 Hepatitis B Vaccines (1 of 3 - 19+ 3-dose series) 2000 COVID-19 Vaccine ( - 2023-2 5 season) 2025 HPV Vaccines (No Doses Required) Completed Pneumococcal Vaccine: Pediat yomaira (0-5 Years) and At-Risk Patients (6 to 49 Years) Aged Out No longer eligible b ased on patient's age to complete this topic
--- OUTSIDE RECORDS SUMMARY | 2025-08-31 21:28 | XMS_ITS | Patient Health Record ---
Author Organization [facility] Address [address] [place] [address] Care Team Providers Care Food Broker Name Role Phone [facility] Provi umu [phone] Mena Shannon Unavailable ZZArchive - DO NOT USE, [facility] Sneha vailable Unavailable Migration, Provider Unavailable Unavailable Allergies Allergen (clinical drug ingredient) Drug/Non Drug Allergy documented on EMR Reaction Allergy Type Onset Date Status Haldol racing thoughts Drug Allergy A ctive quetiapine SEROquel drowsiness, extreme Drug Allergy Active Reason For Referral No Information Medications Medication SIG (Take, Route, Frequency, Duration) Notes Start Date End Date Status cloNIDine HCl 0.1 MG 1 tab(s) orally PRN Active OLANZapine 15 MG 1 tab(s) orally QHS Active Nicoderm CQ 7 MG/24HR 1 PATCH transderma lly once a day Active hydrOXYzine HCl 50 MG 1 tab(s) orally 3 times a day PRN anxiety Active Citalopram Hydrobromide 20 MG 1 tab(s) orally once a day A ctive Citalopram Hydrobromide 20 MG 1 tab(s) orally once a day for 30 day(s) Active OLANZapine 5 MG one tab orally daily in am Active Social History Tobacco Use: Social History [...] santos t Patient counseled on the leticia luongs of tobacco use and advised to quit: 08/27/2013 Problems Problem Type SNOMED Code ICD Code Onset Dates Problem Status W/U Status Risk Notes Problem Bipolar disorder (34069805) BIPOLAR DISORDER NEC (296.89) Active confirmed Problem Body mass index 20-24 - normal (056386577) BMI BETWEEN 19-24,ADULT (V85.1) Active confirmed Problem Alcohol dependence (85084507) Alcohol dependence, uncomplicated (F10.20) Active confirmed Problem Cocaine abuse (45535808) Cocaine abuse, uncomplicated (F14.10) Active confirmed Problem Schizoaffective disorder, depressive type (08535375) Schizoaffective disorder, depressive type (F25.1) Active confirmed Encounters Encounter Location Date Provider Diagnosis [facility] [address] [place] [address] 07/24/2025 Provider Migration [facility] [address] [place] [phone] 05/18/2025 Mena Shannon [facility] [address] [place] [phone] 06/10/2025 Mena Shannon [facility] [address] [place] [phone] 08/25/2025 Mena Shannon Plan Of Treatment No Information Insurance Providers Payer Name Payer Address Payer Phone Subscriber Number Group Number Insured Name Patient Relationship to Insured Coverage Start Date Coverage End Date [place] Standard [address] [place] [address] [phone] [id number] Narcisa Vann Self - patient is the insured Medical (General) History Medical History History ICD Code anemia sickle cell trait schizophrenia Ectopic , age 17 Suicide attempt via pill OD, age 17 and 22
[2025-09-01 08:00] VITALS: BP 122/70; PULSE 88; RESP 16; TEMP 35.7; O2SAT 96
--- NOTE | 2025-09-01 08:19 | P.CONHOSP_ITS ---
History of Present Illness Data of Consult Service Date: 09/01/25 Primary Care Provider: Unknown Physician HPI Reason for consult: Medical consult 44-year-old female with a past medical history of suicide ideation, PTSD, cocaine use disorder, schizophrenia, polysubstance use, presented to [facility] with a suicide attempt by intentional ingestion of Risperdal. She was observed in the ED with no adverse reactions. She eventually consented to labs, which revealed no leukocytosis or anemia. No evidence of electrolyte imbalances. Tox screen positive for marijuana and cocaine. Exam she has no medical concerns. Review of Systems 2 Review of Systems: Denies any shortness of breath, chest pain, headaches, dysuria, abdominal pain or discomfort, nausea, vomiting or diarrhea. Denies fever or chills. [facility] Medical History (Updated 09/01/25 @ 14:48 by Jodi Stevenson DNP) Suicidal ideation Medical clearance for psychiatric admission Substance induced mood disorder Chronic post-traumatic stress disorder (PTSD) Cannabis use disorder, moderate, dependence Cocaine use disorder Schizoaffective disorder Social History Household Members: Family Household Members Other:: father Housing: Apartment Housing Other:: [address] [place] [address] Do you presently have visiting nurse or other home services: No Alcohol intake: current Alcohol intake frequency: a few times a week Alcohol type: hard liquor Comment: no additional interventions needed Patient Tobacco Use Status: Former Tobacco user Tobacco use type: Cigarette Cigarette Packs Per Day: 1 Cigarettes Per Day: 20.0 Years Smoked: 5 Smoked in Last 30 Days: No e-Cigarette/Vaping Use: Never Used Patient Interested in Nicotine Replacement: No Patient Given Instructions on How to Stop Smoking: Yes Date Education Initiated: 09/01/25 Second Hand Smoke Exposure: No Substance Use Type: Crack/Cocaine and Marijuana Currently Displaying Signs/Symptoms of Drug Intoxication Withdrawal: No Have you been hit, kicked, punched, or otherwise hurt by someone within the past year? If so, by whom?: No Do you feel safe in your current relationship?: No Current Relationship Is there a partner from a previous relationship who is making you feel unsafe now?: No Are you made to feel afraid or neglected: No Advance Directives: No Advance Directives Information Provided: Yes Do you have thoughts of harming others: None Do you have a plan to hurt others: No Plan Recently lost weight without trying: Yes Eating poorly because of decreased appetite: No Nutrition Risks: No Nutritional Risk Patient : No : No Poor oral hygiene: No service: No Sexual orientation: Straight/Heterosexual Meds Allergies Allergy/AdvReac Type Severity Reaction Status Date / Time quetiapine (From Seroquel) Allergy Hallucinati Verified 07/12/25 15:39 ons haloperidol (From Haldol) AdvReac Hallucinati Verified 07/12/25 15:39 ons Active Medications: Current Medications Acetaminophen (Acetaminophen 325 Mg Tablet) 650 mg PO Q6H PRN PRN Reason: Headache/Pain, Scale 1-10 Al Hydroxide/Mg Hydroxide (Magnesium Hydrox/Alum Hydrox 30 Ml Oral.Susp) 30 ml PO Q6H PRN PRN Reason: Heartburn/Nausea Hydroxyzine HCl (Hydroxyzine Hcl 25 Mg Tablet) 25 mg PO Q6H PRN PRN Reason: mild anxiety Magnesium Hydroxide (Milk Of Magnesia 30 Ml Oral.Susp) 30 ml PO DAILY PRN PRN Reason: Constipation Nicotine (Nicotine 21 Mg Patch.Td24) 21 mg TRANSDERMA DAILY PRN PRN Reason: nicotine craving Nicotine Polacrilex (Nicotine Polacrilex 2 Mg Gum) 2 mg BUCCAL Q2H PRN PRN Reason: Nicotine Cravings Olanzapine (Olanzapine 5 Mg Tablet) 5 mg PO BID PRN PRN Reason: agitation Trazodone HCl (Trazodone Hcl 50 Mg Tablet) 50 mg PO BEDTIME MRX1 PRN PRN Reason: Insomnia Home Medications ?Medication ?Instructions ?Recorded ?Confirmed ?Last Taken ?Type benztropine 0.5 mg tablet 0.5 mg PO BID 08/31/2508/31 Unknown History divalproex 500 mg tablet,delayed 500 mg PO BID depress zakia disorder 08/31/25 08/31/25 Unknown History release haloperidol 5 mg tablet 5 mg PO BID 08/31/25 5 Unknown History Physical Exam 2 Vital Signs and Narrative: Vital Signs: Last Vital Signs Temp 96.3 F L 09/01/25 08:00 Pulse 88 09/01/25 08:00 Resp 16 09/01/25 08:00 BP 122/70 09/01/25 08:00 Pulse Ox 96 09/01/25 08:00 O2 Del Method Room Air 09/01/25 08:00 BMI result Body Mass Index 24.7 Alert and oriented X3, able to give good history. Cooperative Neuro: CN II-X11 intact, no deficits, visual acuity intact EYES: PERRLA, EOM intact ENT: Hearing intact, lips moist Cardiac: S1 S2 RRR, No ectopy Pulmonary: lungs clear to auscultation, No increased WOB. Abdominal: BS active in all 4 quadrants, no guarding or tenderness MSK: Strength 5/5 upper and lower extremities : Deferred Extremities: No edema in lower extremities Psych: Mood stable, Quiet and cooperative. Skin: Warm and dry, Intact Results Labs 09/01/25 08:04 Assessment and Plan (1) Abnormal thyroid function test: Status: Acute Plan 44-year-old female with past medical history as listed below, presented to the emergency room with intentional overdose of Risperdal. She was observed with no adverse reactions. Now admitted to inpatient psych for further care and treatment. Schizophrenia/PTSD/suicide ideation and attempt/schizoaffective disorder Treatment per psychiatric team. Abnormal thyroid function Patient will need follow up as an outpatient Thank you for allowing me to participate in the care of this patient. Will follow with you, please notify medical provider with any changes in condition or concerns.
[2025-09-01 08:49] LABS: Alanine Aminotransferase 16 U/L (0-31); Albumin Level 4.1 g/dL (3.5-5.0); Alkaline Phosphatase 58 U/L (39-117); Anion Gap 11 (12-20); Aspartate Amino Transferase 21 U/L (5-31); Blood Urea Nitrogen 15 mg/dL (9-16); Calcium 8.9 mg/dL (8.4-10.2); Carbon Dioxide 27 mmol/L (22-29); Chloride 109 mmol/L (96-108); Cholesterol 150 mg/dL (<200); Creatinine Clr Calc Pharmacy 81.1; Estimated Glomerular Filt Rate > 60; HDL Cholesterol 62 mg/dL (>40); Potassium 4.2 mmol/L (3.3-5.1); Sodium 143 mmol/L (135-145); Total Protein 7.4 g/dL (6.5-8.0); Triglycerides 55 mg/dL (<150)
[2025-09-01 09:06] LABS: Free T4 (Free Thyroxine) 1.09 ng/dL (0.71-1.85); Thyroid Stimulating Hormone 0.13 uIU/mL (0.32-4.0)
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
[2025-09-01 20:00] VITALS: RESP 16
[2025-09-02 08:00] VITALS: BP 115/75; PULSE 86; TEMP 36.4; O2SAT 96
--- NOTE | 2025-09-02 09:51 | P.PNPSI_ITS ---
Subjective Subjective Date of Service: 09/02/25 Reason For Visit: F25 Interim History: met with patient; discussed with team Patient polite and calm and friendly on approach. Patient asked to be restarted on the medication clozapine for auditory hallucinations. She says they continuing that they bother her very much. She said she was on clozapine 100 mg and has only been off of it for about 3 days. She said 100 mg was helpful but voices remained and is hoping to go up higher. Paper Sales Manager agreed to have it restarted and to titrate. Patient continues to feel suicidal Mental Status Exam Mental Status Exam Narrative: Pt is alert and oriented; behavior is mostly isolative, keeping to herself; friendly on approach but guarded and does not want to talk much; patient is not in distress; dressed in hospital attire with colorful wig; mood is described as depressed and affect congruent; eye contact appropriate; Speech is normal rate, volume and prosody and not pressured; psychomotor retardation present; thought process is goal directed, concrete; Thought content is on dealing with AH; no delusional ideations expressed; remains positive for SI; no HI; positive for AH which are bothersome. Patients insight and judgment impaired Diagnostics Vital Signs (24Hr): Vital Signs - 24 hr 09/01/25 20:00 Respiratory Rate 16 BMI result Body Mass Index 24.7 Labs 09/01/25 08:04 Labs: Laboratory Results - last 48 hr 09/01/25 08:04 Sodium 143 Potassium 4.2 Chloride 109 H Carbon Dioxide 27 Anion Gap 11 L BUN 15 Creatinine 0.77 Estim Creat Clear Calc 81.1 Estimated GFR > 60 Random Glucose 86 Estimat Average Glucose 103 Hemoglobin A1c % 5.2 Calcium 8.9 Total Bilirubin 0.5 AST 21 ALT 16 Alkaline Phosphatase 58 Total Protein 7.4 Albumin 4.1 Triglycerides 55 Cholesterol 150 LDL Cholesterol, Calc 77 HDL Cholesterol 62 TSH 0.13 L Free T4 1.09 Medications Medications Current Medications Acetaminophen (Acetaminophen 325 Mg Tablet) 650 mg PO Q6H PRN PRN Reason: Headache/Pain, Scale 1-10 Al Hydroxide/Mg Hydroxide (Magnesium Hydrox/Alum Hydrox 30 Ml Oral.Susp) 30 ml PO Q6H PRN PRN Reason: Heartburn/Nausea Benztropine Mesylate (Benztropine Mesylate 0.5 Mg Tablet) 0.5 mg PO BID YUDITH Last Admin: 09/02/25 07:58 Dose: 0.5 mg Clozapine (Clozapine 25 Mg Tablet) 25 mg PO DAILY YUDITH Divalproex Sodium (Divalproex Sodium 500 Mg Tablet.Dr) 500 mg PO BID YUDITH Last Admin: 09/02/25 07:58 Dose: 500 mg Haloperidol (Haloperidol 5 Mg Tablet) 5 mg PO BID YUDITH Last Admin: 09/02/25 07:58 Dose: 5 mg Hydroxyzine HCl (Hydroxyzine Hcl 25 Mg Tablet) 25 mg PO Q6H PRN PRN Reason: mild anxiety Last Admin: 09/01/25 21:00 Dose: 25 mg Magnesium Hydroxide (Milk Of Magnesia 30 Ml Oral.Susp) 30 ml PO DAILY PRN PRN Reason: Constipation Nicotine (Nicotine 21 Mg Patch.Td24) 21 mg TRANSDERMA DAILY PRN PRN Reason: nicotine craving Nicotine Polacrilex (Nicotine Polacrilex 2 Mg Gum) 2 mg BUCCAL Q2H PRN PRN Reason: Nicotine Cravings Olanzapine (Olanzapine 5 Mg Tablet) 5 mg PO BID PRN PRN Reason: agitation Last Admin: 09/01/25 15:00 Dose: 5 mg Trazodone HCl (Trazodone Hcl 50 Mg Tablet) 50 mg PO BEDTIME MRX1 PRN PRN Reason: Insomnia Last Admin: 09/01/25 21:00 Dose: 50 mg Allergies Allergies Allergy/AdvReac Type Severity Reaction Status Date / Time quetiapine (From Seroquel) Allergy Hallucinati Verified 07/12/25 15:39 ons haloperidol (From Haldol) AdvReac Hallucinati Verified 07/12/25 15:39 ons Assessment & Plan Assessment & Plan (1) Schizoaffective disorder: Status: Chronic Code(s): F25.9 - Schizoaffective disorder, unspecified (2) Suicidal ideation: Status: Acute Code(s): R45.851 - Suicidal ideations (3) Chronic post-traumatic stress disorder (PTSD): Status: Acute Code(s): F43.12 - Post-traumatic stress disorder, chronic (4) Cannabis use disorder, moderate, dependence: Status: Acute Code(s): F12.20 - Cannabis dependence, uncomplicated (5) Cocaine use disorder: Status: Acute Code(s): F14.10 - Cocaine abuse, uncomplicated Plan HPI: 44-year-old female with history of schizoaffective disorder, PTSD, and polysubstance use disorder (alcohol, cocaine, cannabis, nicotine) is a transfer from [facility] ED to [facility] yesterday for suicide attempt by taking six 2 mg risperidone tablets. On interview with his provider, patient states that she feels ?sad? because of the voice in her head for the past 1 month. She states that the voice comes and goes and says made things which she does not understand. She also reports ongoing intermittent visual hallucination only when outside. She sees people looking at her and saying things to her. She does not know if the people are real, nor does she understands what they say. Her last auditory hallucination was last night and visual hallucination was 2 days ago. She has been severely depressed with associated suicide ideation with a plan to overdose on her medications for the past 1 month. She does not know the source of her depression and suicide ideation. She has been taking her medications as prescribed and was at baseline before her current symptoms. She had 2 recent admissions at [facility] with the first one a month ago and the second, 2 weeks ago for similar symptoms. Medication changes were made while hospitalized. However, her symptoms did not resolve, nor improve upon discharge. Her symptoms persists despite taking her medications as prescribed. Two days ago, she took two 2 mg risperidone to end her life, but immediately called 911 for help, and was brought to the ED by EMS. She is currently experiencing moderate anxiety and depression and suicide thoughts without a plan. She denies HI/AVH. She smokes crack/cocaine once a week and has been smoking for the past 10 years; last crack/cocaine use was 2 days ago. She denies other drug use. She drinks 1 nips of alcohol weekly and smokes 4 cigarettes daily; she has been drinking and smoking since she was 17 years old. Tox screen positive for marijuana and cocaine. Her goal is for her depression and auditory hallucinations to get better. Clinical reasoning/formulation: Schizoaffective disorder, depressive type: Patient has been experiencing severe depression with suicide ideation with plan to overdose on her medications for the past 1 month. She has also been experiencing associated intermittent auditory and visual hallucinations. The source of her symptoms is unknown. If, in fact, patient is compliant with the medications, she likely needs medication adjustment/changes for symptoms management/improvement. Marijuana and cocaine use may have exacerbated her symptoms. Will restart Depakote 500 mg b.i.d., Haldol 5 mg b.i.d., and Cogentin 0.5 mg b.i.d. Will check valproate level in 5 days. Hospital course: 09/02 Patient polite and calm and friendly on approach. Patient asked to be restarted on the medication clozapine for auditory hallucinations. She says they continuing that they bother her very much. She said she was on clozapine 100 mg and has only been off of it for about 3 days. She said 100 mg was helpful but voices remained and is hoping to go up higher. Paper Sales Manager agreed to have it restarted and to titrate. Patient continues to feel suicidal Plan Admit to M5. CV 15 minutes check. Re-Start Clozaril 25 mg b.i.d.; will titrate; has only been off for 3 days Diagnostics as needed. Collateral contact. Continue remainder of regime. Encouraged full milieu. Discharge planning. Patient educated on: diagnosis and medication risk/benefits Informed Consent: understands Reason for continued inpatient stay Substantial Risk for: rapid decompensation Time Spent With Patient Time: Total time managing care of this patient today ____ minutes.
[2025-09-02 10:22] LABS: Neut%MD 53.0 %; WBCANC 7.1 X10*3/uL
[2025-09-02] MEDS: Nicotine 21 MG PATCH.TD24 TRANSDERMA (12:36)
[2025-09-02 15:46] VITALS: BMI 25.2
[2025-09-02 19:56] VITALS: BP 94/50; PULSE 65; RESP 16; TEMP 36.8; O2SAT 98
[2025-09-03 08:00] VITALS: BP 123/56; PULSE 66; TEMP 36.4; O2SAT 99
--- NOTE | 2025-09-03 09:49 | P.PNPSI_ITS ---
Subjective Subjective Date of Service: 09/03/25 Reason For Visit: F25 Interim History: met with patient; discussed with team Patient remains isolative and guarded though briefly friendly when approached; she does not want to talk much but thinks quality analyst/technical writer for restarting the clozapine. She says she continues to have voices. Continues to feel suicidal. Mental Status Exam Mental Status Exam Narrative: Pt is alert and oriented; behavior is mostly isolative, keeping to herself and lying in bed; friendly on approach but guarded and does not want to talk much; patient is not in distress; dressed in hospital attire with colorful wig; mood is described as depressed and affect congruent; eye contact appropriate; Speech is normal rate, volume and prosody and not pressured; psychomotor retardation present; thought process is goal directed, concrete; Thought content is on dealing with AH; no delusional ideations expressed; remains positive for SI; no HI; positive for AH which are bothersome. Patients insight and judgment impaired Diagnostics Vital Signs (24Hr): Vital Signs - 24 hr 09/02/25 19:56 09/03/25 08:00 Temperature 98.2 F 97.5 F Pulse Rate 65 66 Respiratory Rate 16 Blood Pressure 94/50 L 123/56 L Pulse Oximetry 98 99 Oxygen Delivery Method Room Air Room Air BMI result Body Mass Index 25.2 Labs 09/01/25 08:04 Labs: Laboratory Results - last 48 hr 09/02/25 10:17 Absolute Neuts (auto) 3.8 Medications Medications Current Medications Acetaminophen (Acetaminophen 325 Mg Tablet) 650 mg PO Q6H PRN PRN Reason: Headache/Pain, Scale 1-10 Al Hydroxide/Mg Hydroxide (Magnesium Hydrox/Alum Hydrox 30 Ml Oral.Susp) 30 ml PO Q6H PRN PRN Reason: Heartburn/Nausea Benztropine Mesylate (Benztropine Mesylate 0.5 Mg Tablet) 0.5 mg PO BID COUNTS INCLUDE 234 BEDS AT THE [facility] Last Admin: 09/03/25 09:19 Dose: 0.5 mg Clozapine (Clozapine 25 Mg Tablet) 25 mg PO BID COUNTS INCLUDE 234 BEDS AT THE [facility] Last Admin: 09/03/25 09:19 Dose: 25 mg Divalproex Sodium (Divalproex Sodium 500 Mg Tablet.Dr) 500 mg PO BID COUNTS INCLUDE 234 BEDS AT THE [facility] Last Admin: 09/03/25 09:19 Dose: 500 mg Haloperidol (Haloperidol 5 Mg Tablet) 5 mg PO BID COUNTS INCLUDE 234 BEDS AT THE [facility] Last Admin: 09/03/25 09:19 Dose: 5 mg Hydroxyzine HCl (Hydroxyzine Hcl 25 Mg Tablet) 25 mg PO Q6H PRN PRN Reason: mild anxiety Last Admin: 09/02/25 21:43 Dose: 25 mg Magnesium Hydroxide (Milk Of Magnesia 30 Ml Oral.Susp) 30 ml PO DAILY PRN PRN Reason: Constipation Nicotine (Nicotine 21 Mg Patch.Td24) 21 mg TRANSDERMA DAILY PRN PRN Reason: nicotine craving Last Admin: 09/02/25 12:36 Dose: 21 mg Nicotine Polacrilex (Nicotine Polacrilex 2 Mg Gum) 2 mg BUCCAL Q2H PRN PRN Reason: Nicotine Cravings Olanzapine (Olanzapine 5 Mg Tablet) 5 mg PO BID PRN PRN Reason: agitation Last Admin: 09/02/25 21:42 Dose: 5 mg Trazodone HCl (Trazodone Hcl 50 Mg Tablet) 50 mg PO BEDTIME MRX1 PRN PRN Reason: Insomnia Last Admin: 09/02/25 21:42 Dose: 50 mg Allergies Allergies Allergy/AdvReac Type Severity Reaction Status Date / Time quetiapine (From Seroquel) Allergy Hallucinati Verified 07/12/25 15:39 ons haloperidol (From Haldol) AdvReac Hallucinati Verified 07/12/25 15:39 ons Assessment & Plan Assessment & Plan (1) Schizoaffective disorder: Status: Chronic Code(s): F25.9 - Schizoaffective disorder, unspecified (2) Suicidal ideation: Status: Acute Code(s): R45.851 - Suicidal ideations (3) Chronic post-traumatic stress disorder (PTSD): Status: Acute Code(s): F43.12 - Post-traumatic stress disorder, chronic (4) Cannabis use disorder, moderate, dependence: Status: Acute Code(s): F12.20 - Cannabis dependence, uncomplicated (5) Cocaine use disorder: Status: Acute Code(s): F14.10 - Cocaine abuse, uncomplicated Plan HPI: 44-year-old female with history of schizoaffective disorder, PTSD, and polysubstance use disorder (alcohol, cocaine, cannabis, nicotine) is a transfer from [facility] ED to [facility] yesterday for suicide attempt by taking six 2 mg risperidone tablets. On interview with his provider, patient states that she feels ?sad? because of the voice in her head for the past 1 month. She states that the voice comes and goes and says made things which she does not understand. She also reports ongoing intermittent visual hallucination only when outside. She sees people looking at her and saying things to her. She does not know if the people are real, nor does she understands what they say. Her last auditory hallucination was last night and visual hallucination was 2 days ago. She has been severely depressed with associated suicide ideation with a plan to overdose on her medications for the past 1 month. She does not know the source of her depression and suicide ideation. She has been taking her medications as prescribed and was at baseline before her current symptoms. She had 2 recent admissions at [place] with the first one a month ago and the second, 2 weeks ago for similar symptoms. Medication changes were made while hospitalized. However, her symptoms did not resolve, nor improve upon discharge. Her symptoms persists despite taking her medications as prescribed. Two days ago, she took two 2 mg risperidone to end her life, but immediately called 911 for help, and was brought to the ED by EMS. She is currently experiencing moderate anxiety and depression and suicide thoughts without a plan. She denies HI/AVH. She smokes crack/cocaine once a week and has been smoking for the past 10 years; last crack/cocaine use was 2 days ago. She denies other drug use. She drinks 1 nips of alcohol weekly and smokes 4 cigarettes daily; she has been drinking and smoking since she was 17 years old. Tox screen positive for marijuana and cocaine. Her goal is for her depression and auditory hallucinations to get better. Clinical reasoning/formulation: Schizoaffective disorder, depressive type: Patient has been experiencing severe depression with suicide ideation with plan to overdose on her medications for the past 1 month. She has also been experiencing associated intermittent auditory and visual hallucinations. The source of her symptoms is unknown. If, in fact, patient is compliant with the medications, she likely needs medication adjustment/changes for symptoms management/improvement. Marijuana and cocaine use may have exacerbated her symptoms. Will restart Depakote 500 mg b.i.d., Haldol 5 mg b.i.d., and Cogentin 0.5 mg b.i.d. Will check valproate level in 5 days. Hospital course: 09/02 Patient polite and calm and friendly on approach. Patient asked to be restarted on the medication clozapine for auditory hallucinations. She says they continuing that they bother her very much. She said she was on clozapine 100 mg and has only been off of it for about 3 days. She said 100 mg was helpful but voices remained and is hoping to go up higher. Pie Chef agreed to have it restarted and to titrate. Patient continues to feel suicidal 09/03 remains depressed with AH; still positive for SI. Clozaril increased to 100 mg total daily dose, home dose; will let it sit here for a couple days to see if AH mostly resolved; otherwise will continue to titrate Plan Admit to M5. CV 15 minutes check. Increased to: Clozaril 25 mg daily Clozapine 75 q.h.s. q.h.s. Diagnostics as needed. Collateral contact. Continue remainder of regime. Encouraged full milieu. Discharge planning. Patient educated on: diagnosis and medication risk/benefits Informed Consent: understands Reason for continued inpatient stay Substantial Risk for: rapid decompensation Time Spent With Patient Time: Total time managing care of this patient today ____ minutes.
[2025-09-03 20:00] VITALS: BP 104/60; PULSE 68; RESP 16; TEMP 36.3; O2SAT 98
[2025-09-04 08:00] VITALS: BP 105/80; PULSE 78; RESP 16; TEMP 36.2; O2SAT 99
[2025-09-04] MEDS: Nicotine 21 MG PATCH.TD24 TRANSDERMA (09:12)
--- NOTE | 2025-09-04 09:45 | P.PNPSI_ITS ---
Subjective Subjective Date of Service: 09/04/25 Reason For Visit: F25 Interim History: met with patient; discussed with RN Patient reports some improvement in her mood and AH. Says she is tolerating medications well. Denies side effects. Says she doesn't have SI today. She is calm and cooperative. Says she has been eating well. She reported vaginal itching to RN for past week. She says she continues to have voices but have lessened. Review of Systems Review of Systems Denies any shortness of breath, chest pain, headaches, dysuria, abdominal pain or discomfort, nausea, vomiting or diarrhea. Denies fever or chills. Yes all other systems are reviewed and are negative Mental Status Exam Mental Status Exam Narrative: Pt is alert and oriented; behavior is mostly isolative, keeping to herself and lying in bed; friendly on approach but guarded and does not want to talk much; patient is not in distress; dressed in hospital attire with colorful wig; mood is described as depressed and affect congruent; eye contact appropriate; Speech is normal rate, volume and prosody and not pressured; psychomotor retardation present; thought process is goal directed, concrete; Thought content is on dealing with AH; no delusional ideations expressed; remains positive for SI; no HI; positive for AH which are bothersome. Patients insight and judgment impaired Diagnostics Vital Signs (24Hr): Vital Signs - 24 hr 09/03/25 20:00 09/04/25 08:00 Temperature 97.3 F 97.2 F Pulse Rate 68 78 Respiratory Rate 16 16 Blood Pressure 104/60 105/80 Pulse Oximetry 98 99 Oxygen Delivery Method Room Air BMI result Body Mass Index 25.2 Labs 09/01/25 08:04 Labs: Laboratory Results - last 48 hr 09/02/25 10:17 Absolute Neuts (auto) 3.8 Medications Medications Current Medications Acetaminophen (Acetaminophen 325 Mg Tablet) 650 mg PO Q6H PRN PRN Reason: Headache/Pain, Scale 1-10 Al Hydroxide/Mg Hydroxide (Magnesium Hydrox/Alum Hydrox 30 Ml Oral.Susp) 30 ml PO Q6H PRN PRN Reason: Heartburn/Nausea Benztropine Mesylate (Benztropine Mesylate 0.5 Mg Tablet) 0.5 mg PO BID [facility] Last Admin: 09/04/25 09:10 Dose: 0.5 mg Clozapine (Clozapine 25 Mg Tablet) 25 mg PO DAILY [facility] Last Admin: 09/04/25 09:11 Dose: 25 mg Clozapine (Clozapine 25 Mg Tablet) 75 mg PO BEDTIME [facility] Last Admin: 09/03/25 21:42 Dose: 75 mg Divalproex Sodium (Divalproex Sodium 500 Mg Tablet.Dr) 500 mg PO BID [facility] Last Admin: 09/04/25 09:10 Dose: 500 mg Haloperidol (Haloperidol 5 Mg Tablet) 5 mg PO BID [facility] Last Admin: 09/04/25 09:11 Dose: 5 mg Hydroxyzine HCl (Hydroxyzine Hcl 25 Mg Tablet) 25 mg PO Q6H PRN PRN Reason: mild anxiety Last Admin: 09/03/25 21:42 Dose: 25 mg Magnesium Hydroxide (Milk Of Magnesia 30 Ml Oral.Susp) 30 ml PO DAILY PRN PRN Reason: Constipation Nicotine (Nicotine 21 Mg Patch.Td24) 21 mg TRANSDERMA DAILY PRN PRN Reason: nicotine craving Last Admin: 09/04/25 09:12 Dose: 21 mg Nicotine Polacrilex (Nicotine Polacrilex 2 Mg Gum) 2 mg BUCCAL Q2H PRN PRN Reason: Nicotine Cravings Olanzapine (Olanzapine 5 Mg Tablet) 5 mg PO BID PRN PRN Reason: agitation Last Admin: 09/04/25 09:10 Dose: 5 mg Trazodone HCl (Trazodone Hcl 50 Mg Tablet) 50 mg PO BEDTIME MRX1 PRN PRN Reason: Insomnia Last Admin: 09/03/25 21:41 Dose: 50 mg Allergies Allergies Allergy/AdvReac Type Severity Reaction Status Date / Time quetiapine (From Seroquel) Allergy Hallucinati Verified 07/12/25 15:39 ons haloperidol (From Haldol) AdvReac Hallucinati Verified 07/12/25 15:39 ons Assessment & Plan Assessment & Plan (1) Schizoaffective disorder: Status: Chronic Code(s): F25.9 - Schizoaffective disorder, unspecified (2) Suicidal ideation: Status: Acute Code(s): R45.851 - Suicidal ideations (3) Chronic post-traumatic stress disorder (PTSD): Status: Acute Code(s): F43.12 - Post-traumatic stress disorder, chronic (4) Cannabis use disorder, moderate, dependence: Status: Acute Code(s): F12.20 - Cannabis dependence, uncomplicated (5) Cocaine use disorder: Status: Acute Code(s): F14.10 - Cocaine abuse, uncomplicated Plan HPI: 44-year-old female with history of schizoaffective disorder, PTSD, and polysubstance use disorder (alcohol, cocaine, cannabis, nicotine) is a transfer from [facility] ED to [facility] yesterday for suicide attempt by taking six 2 mg risperidone tablets. On interview with his provider, patient states that she feels ?sad? because of the voice in her head for the past 1 month. She states that the voice comes and goes and says made things which she does not understand. She also reports ongoing intermittent visual hallucination only when outside. She sees people looking at her and saying things to her. She does not know if the people are real, nor does she understands what they say. Her last auditory hallucination was last night and visual hallucination was 2 days ago. She has been severely depressed with associated suicide ideation with a plan to overdose on her medications for the past 1 month. She does not know the source of her depression and suicide ideation. She has been taking her medications as prescribed and was at baseline before her current symptoms. She had 2 recent admissions at [place] with the first one a month ago and the second, 2 weeks ago for similar symptoms. Medication changes were made while hospitalized. However, her symptoms did not resolve, nor improve upon discharge. Her symptoms persists despite taking her medications as prescribed. Two days ago, she took two 2 mg risperidone to end her life, but immediately called 911 for help, and was brought to the ED by EMS. She is currently experiencing moderate anxiety and depression and suicide thoughts without a plan. She denies HI/AVH. She smokes crack/cocaine once a week and has been smoking for the past 10 years; last crack/cocaine use was 2 days ago. She denies other drug use. She drinks 1 nips of alcohol weekly and smokes 4 cigarettes daily; she has been drinking and smoking since she was 17 years old. Tox screen positive for marijuana and cocaine. Her goal is for her depression and auditory hallucinations to get better. Clinical reasoning/formulation: Schizoaffective disorder, depressive type: Patient has been experiencing severe depression with suicide ideation with plan to overdose on her medications for the past 1 month. She has also been experiencing associated intermittent auditory and visual hallucinations. The source of her symptoms is unknown. If, in fact, patient is compliant with the medications, she likely needs medication adjustment/changes for symptoms management/improvement. Marijuana and cocaine use may have exacerbated her symptoms. Will restart Depakote 500 mg b.i.d., Haldol 5 mg b.i.d., and Cogentin 0.5 mg b.i.d. Will check valproate level in 5 days. Hospital course: 09/02 Patient polite and calm and friendly on approach. Patient asked to be restarted on the medication clozapine for auditory hallucinations. She says they continuing that they bother her very much. She said she was on clozapine 100 mg and has only been off of it for about 3 days. She said 100 mg was helpful but voices remained and is hoping to go up higher. Mercury Recoverer agreed to have it restarted and to titrate. Patient continues to feel suicidal 09/03 remains depressed with AH; still positive for SI. Clozaril increased to 100 mg total daily dose, home dose; will let it sit here for a couple days to see if AH mostly resolved; otherwise will continue to titrate 09/04: Continue current management and treatment plan. Plan Admit to M5. CV 15 minutes check. Increased to: Clozaril 25 mg daily Clozapine 75 q.h.s. q.h.s. Diagnostics as needed. Collateral contact. Continue remainder of regime. Encouraged full milieu. Discharge planning. Reason for continued inpatient stay Substantial Risk for: harm to self, inability to function and rapid decompensation Time Spent With Patient Time: Total time managing care of this patient today ____ minutes.
[2025-09-04 20:00] VITALS: BP 144/90; PULSE 86; RESP 15; TEMP 35.8; O2SAT 99
[2025-09-05 02:20] LABS: Bacterial Vaginosis PCR POSITIVE (Negative); Candida Group PCR NOT DETECTED (Not Detect); Candida glab krusei PCR NOT DETECTED (Not Detect); Trichomonas vaginalis PCR DETECTED (Not Detect)
[2025-09-05 08:00] VITALS: BP 110/70; PULSE 82; RESP 16; TEMP 36.8; O2SAT 96
--- NOTE | 2025-09-05 09:33 | HO.PSYCHPN ---
Subjective Subjective Date of Service: 09/05/25 Reason For Visit: F25 Interim History: met with patient; discussed with RN Tested positive for Trichomonas. Patient says her mood remains depressed but improved since admission. Not sure what would improve it further. Tolerating medications well and denies side effects. Appetite is good. Sleep is good. Continues to have AH but reports they have lessened in severity. Calm and cooperative with care. Denies SI. Review of Systems Review of Systems Denies any shortness of breath, chest pain, headaches, dysuria, abdominal pain or discomfort, nausea, vomiting or diarrhea. Denies fever or chills. Yes all other systems are reviewed and are negative Mental Status Exam Mental Status Exam Narrative: Pt is alert and oriented; behavior is mostly isolative, keeping to herself and lying in bed; friendly on approach but guarded and does not want to talk much; patient is not in distress; dressed in hospital attire with colorful wig; mood is described as depressed and affect congruent; eye contact appropriate; Speech is normal rate, volume and prosody and not pressured; psychomotor retardation present; thought process is goal directed, concrete; Thought content is on dealing with AH; no delusional ideations expressed; remains positive for SI; no HI; positive for AH which are bothersome. Patients insight and judgment impaired Diagnostics Vital Signs (24Hr): Vital Signs - 24 hr 09/04/25 20:00 09/05/25 08:00 Temperature 96.4 F L 98.2 F Pulse Rate 86 82 Respiratory Rate 15 16 Blood Pressure 144/90 H 110/70 Pulse Oximetry 99 96 BMI result Body Mass Index 25.2 Labs 09/01/25 08:04 Labs: Laboratory Results - last 48 hr 09/04/25 10:57 T. vaginalis (PCR) DETECTED A Bact vaginosis (PCR) POSITIVE A C. krusei/glabrata (PCR) NOT DETECTED Dora group (PCR) NOT DETECTED Medications Medications Current Medications Acetaminophen (Acetaminophen 325 Mg Tablet) 650 mg PO Q6H PRN PRN Reason: Headache/Pain, Scale 1-10 Al Hydroxide/Mg Hydroxide (Magnesium Hydrox/Alum Hydrox 30 Ml Oral.Susp) 30 ml PO Q6H PRN PRN Reason: Heartburn/Nausea Benztropine Mesylate (Benztropine Mesylate 0.5 Mg Tablet) 0.5 mg PO BID [facility] Last Admin: 09/04/25 20:49 Dose: 0.5 mg Clozapine (Clozapine 25 Mg Tablet) 25 mg PO DAILY [facility] Last Admin: 09/04/25 09:11 Dose: 25 mg Clozapine (Clozapine 25 Mg Tablet) 75 mg PO BEDTIME [facility] Last Admin: 09/04/25 20:49 Dose: 75 mg Divalproex Sodium (Divalproex Sodium 500 Mg Tablet.Dr) 500 mg PO BID [facility] Last Admin: 09/04/25 20:49 Dose: 500 mg Haloperidol (Haloperidol 5 Mg Tablet) 5 mg PO BID [facility] Last Admin: 09/04/25 20:50 Dose: 5 mg Hydroxyzine HCl (Hydroxyzine Hcl 25 Mg Tablet) 25 mg PO Q6H PRN PRN Reason: mild anxiety Last Admin: 09/03/25 21:42 Dose: 25 mg Magnesium Hydroxide (Milk Of Magnesia 30 Ml Oral.Susp) 30 ml PO DAILY PRN PRN Reason: Constipation Nicotine (Nicotine 21 Mg Patch.Td24) 21 mg TRANSDERMA DAILY PRN PRN Reason: nicotine craving Last Admin: 09/04/25 09:12 Dose: 21 mg Nicotine Polacrilex (Nicotine Polacrilex 2 Mg Gum) 2 mg BUCCAL Q2H PRN PRN Reason: Nicotine Cravings Olanzapine (Olanzapine 5 Mg Tablet) 5 mg PO BID PRN PRN Reason: agitation Last Admin: 09/04/25 09:10 Dose: 5 mg Trazodone HCl (Trazodone Hcl 50 Mg Tablet) 50 mg PO BEDTIME MRX1 PRN PRN Reason: Insomnia Last Admin: 09/04/25 20:49 Dose: 50 mg Allergies Allergies Allergy/AdvReac Type Severity Reaction Status Date / Time quetiapine (From Seroquel) Allergy Hallucinati Verified 07/12/25 15:39 ons haloperidol (From Haldol) AdvReac Hallucinati Verified 07/12/25 15:39 ons Assessment & Plan Assessment & Plan (1) Schizoaffective disorder: Status: Chronic Code(s): F25.9 - Schizoaffective disorder, unspecified (2) Suicidal ideation: Status: Acute Code(s): R45.851 - Suicidal ideations (3) Chronic post-traumatic stress disorder (PTSD): Status: Acute Code(s): F43.12 - Post-traumatic stress disorder, chronic (4) Cannabis use disorder, moderate, dependence: Status: Acute Code(s): F12.20 - Cannabis dependence, uncomplicated (5) Cocaine use disorder: Status: Acute Code(s): F14.10 - Cocaine abuse, uncomplicated Plan HPI: 44-year-old female with history of schizoaffective disorder, PTSD, and polysubstance use disorder (alcohol, cocaine, cannabis, nicotine) is a transfer from [facility] ED to [facility] yesterday for suicide attempt by taking six 2 mg risperidone tablets. On interview with his provider, patient states that she feels ?sad? because of the voice in her head for the past 1 month. She states that the voice comes and goes and says made things which she does not understand. She also reports ongoing intermittent visual hallucination only when outside. She sees people looking at her and saying things to her. She does not know if the people are real, nor does she understands what they say. Her last auditory hallucination was last night and visual hallucination was 2 days ago. She has been severely depressed with associated suicide ideation with a plan to overdose on her medications for the past 1 month. She does not know the source of her depression and suicide ideation. She has been taking her medications as prescribed and was at baseline before her current symptoms. She had 2 recent admissions at [place] with the first one a month ago and the second, 2 weeks ago for similar symptoms. Medication changes were made while hospitalized. However, her symptoms did not resolve, nor improve upon discharge. Her symptoms persists despite taking her medications as prescribed. Two days ago, she took two 2 mg risperidone to end her life, but immediately called 911 for help, and was brought to the ED by EMS. She is currently experiencing moderate anxiety and depression and suicide thoughts without a plan. She denies HI/AVH. She smokes crack/cocaine once a week and has been smoking for the past 10 years; last crack/cocaine use was 2 days ago. She denies other drug use. She drinks 1 nips of alcohol weekly and smokes 4 cigarettes daily; she has been drinking and smoking since she was 17 years old. Tox screen positive for marijuana and cocaine. Her goal is for her depression and auditory hallucinations to get better. Clinical reasoning/formulation: Schizoaffective disorder, depressive type: Patient has been experiencing severe depression with suicide ideation with plan to overdose on her medications for the past 1 month. She has also been experiencing associated intermittent auditory and visual hallucinations. The source of her symptoms is unknown. If, in fact, patient is compliant with the medications, she likely needs medication adjustment/changes for symptoms management/improvement. Marijuana and cocaine use may have exacerbated her symptoms. Will restart Depakote 500 mg b.i.d., Haldol 5 mg b.i.d., and Cogentin 0.5 mg b.i.d. Will check valproate level in 5 days. Hospital course: 09/02 Patient polite and calm and friendly on approach. Patient asked to be restarted on the medication clozapine for auditory hallucinations. She says they continuing that they bother her very much. She said she was on clozapine 100 mg and has only been off of it for about 3 days. She said 100 mg was helpful but voices remained and is hoping to go up higher. Patient Safety Sitter agreed to have it restarted and to titrate. Patient continues to feel suicidal 09/03 remains depressed with AH; still positive for SI. Clozaril increased to 100 mg total daily dose, home dose; will let it sit here for a couple days to see if AH mostly resolved; otherwise will continue to titrate 09/04: Continue current management and treatment plan. 09/05: Flagyl for TV. Otherwise continue current management and treatment plan. Plan Admit to M5. CV 15 minutes check. Increased to: Clozaril 25 mg daily Clozapine 75 q.h.s. q.h.s. Diagnostics as needed. Collateral contact. Continue remainder of regime. Encouraged full milieu. Discharge planning. Reason for continued inpatient stay Substantial Risk for: inability to function and rapid decompensation Time Spent With Patient Time: Total time managing care of this patient today ____ minutes.
[2025-09-05] MEDS: Nicotine 21 MG PATCH.TD24 TRANSDERMA (09:51)
[2025-09-05 20:00] VITALS: BP 103/70; PULSE 86; RESP 15; TEMP 36.8; O2SAT 100
[2025-09-06 07:45] VITALS: BP 109/76; PULSE 86; RESP 15; TEMP 36.6; O2SAT 97
--- NOTE | 2025-09-06 16:09 | HO.PSYCHPN ---
Subjective Subjective Date of Service: 09/06/25 Reason For Visit: F25 Interim History: Met with patient; discussed with team; reviewed chart Patient reports that she is feeling much better and back to her regular self. Continues to have AH but says it is much lower and does not bother her very much. Wants to leave Clozaril like it is. Wants to discuss discharge plans Mental Status Exam Mental Status Exam Narrative: Pt is alert and oriented; behavior is calm, in behavioral control; cooperative and friendly on approach; mostly keeps to herself in bed; patient is not in distress; dressed in casual attire with colorful wig; mood is described as good and affect congruent, brighter, calm; eye contact appropriate; Speech is normal rate, volume and prosody and not pressured; no psychomotor retardation present; thought process is goal directed, concrete; Thought content is on discharge planning; no delusional ideations expressed; no SI; no HI; positive for AH but much less and not bothersome Patients insight and judgment adequate and at baseline Diagnostics Vital Signs (24Hr): Vital Signs - 24 hr 09/05/25 20:00 09/06/25 07:45 Temperature 98.2 F 97.8 F Pulse Rate 86 86 Respiratory Rate 15 15 Blood Pressure 103/70 109/76 Pulse Oximetry 100 97 Oxygen Delivery Method Room Air BMI result Body Mass Index 25.2 Labs 09/01/25 08:04 Labs: Laboratory Results - last 48 hr 09/04/25 10:57 T. vaginalis (PCR) DETECTED A Bact vaginosis (PCR) POSITIVE A C. krusei/glabrata (PCR) NOT DETECTED Dora group (PCR) NOT DETECTED Medications Medications Current Medications Acetaminophen (Acetaminophen 325 Mg Tablet) 650 mg PO Q6H PRN PRN Reason: Headache/Pain, Scale 1-10 Al Hydroxide/Mg Hydroxide (Magnesium Hydrox/Alum Hydrox 30 Ml Oral.Susp) 30 ml PO Q6H PRN PRN Reason: Heartburn/Nausea Benztropine Mesylate (Benztropine Mesylate 0.5 Mg Tablet) 0.5 mg PO BID [facility] Last Admin: 09/06/25 08:36 Dose: 0.5 mg Clozapine (Clozapine 25 Mg Tablet) 25 mg PO DAILY YUDITH Last Admin: 09/06/25 08:36 Dose: 25 mg Clozapine (Clozapine 25 Mg Tablet) 75 mg PO BEDTIME YUDITH Divalproex Sodium (Divalproex Sodium 500 Mg Tablet.Dr) 500 mg PO BID YUDITH Last Admin: 09/06/25 08:36 Dose: 500 mg Haloperidol (Haloperidol 5 Mg Tablet) 5 mg PO BID YUDITH Last Admin: 09/06/25 08:36 Dose: 5 mg Hydroxyzine HCl (Hydroxyzine Hcl 25 Mg Tablet) 25 mg PO Q6H PRN PRN Reason: mild anxiety Last Admin: 09/03/25 21:42 Dose: 25 mg Magnesium Hydroxide (Milk Of Magnesia 30 Ml Oral.Susp) 30 ml PO DAILY PRN PRN Reason: Constipation Metronidazole (Metronidazole 500 Mg Tablet) 500 mg PO Q12H YUDITH Last Admin: 09/06/25 11:01 Dose: 500 mg Nicotine (Nicotine 21 Mg Patch.Td24) 21 mg TRANSDERMA DAILY PRN PRN Reason: nicotine craving Last Admin: 09/05/25 09:51 Dose: 21 mg Nicotine Polacrilex (Nicotine Polacrilex 2 Mg Gum) 2 mg BUCCAL Q2H PRN PRN Reason: Nicotine Cravings Olanzapine (Olanzapine 5 Mg Tablet) 5 mg PO BID PRN PRN Reason: agitation Last Admin: 09/04/25 09:10 Dose: 5 mg Trazodone HCl (Trazodone Hcl 50 Mg Tablet) 50 mg PO BEDTIME MRX1 PRN PRN Reason: Insomnia Last Admin: 09/05/25 21:04 Dose: 50 mg Allergies Allergies Allergy/AdvReac Type Severity Reaction Status Date / Time quetiapine (From Seroquel) Allergy Hallucinati Verified 07/12/25 15:39 ons haloperidol (From Haldol) AdvReac Hallucinati Verified 07/12/25 15:39 ons Assessment & Plan Assessment & Plan (1) Schizoaffective disorder: Status: Chronic Code(s): F25.9 - Schizoaffective disorder, unspecified (2) Chronic post-traumatic stress disorder (PTSD): Status: Acute Code(s): F43.12 - Post-traumatic stress disorder, chronic (3) Suicidal ideation: Status: Resolved Code(s): R45.851 - Suicidal ideations (4) Cannabis use disorder, moderate, dependence: Status: Acute Code(s): F12.20 - Cannabis dependence, uncomplicated (5) Cocaine use disorder: Status: Acute Code(s): F14.10 - Cocaine abuse, uncomplicated Plan HPI: 44-year-old female with history of schizoaffective disorder, PTSD, and polysubstance use disorder (alcohol, cocaine, cannabis, nicotine) is a transfer from [facility] ED to [facility] yesterday for suicide attempt by taking six 2 mg risperidone tablets. On interview with his provider, patient states that she feels ?sad? because of the voice in her head for the past 1 month. She states that the voice comes and goes and says made things which she does not understand. She also reports ongoing intermittent visual hallucination only when outside. She sees people looking at her and saying things to her. She does not know if the people are real, nor does she understands what they say. Her last auditory hallucination was last night and visual hallucination was 2 days ago. She has been severely depressed with associated suicide ideation with a plan to overdose on her medications for the past 1 month. She does not know the source of her depression and suicide ideation. She has been taking her medications as prescribed and was at baseline before her current symptoms. She had 2 recent admissions at [facility] with the first one a month ago and the second, 2 weeks ago for similar symptoms. Medication changes were made while hospitalized. However, her symptoms did not resolve, nor improve upon discharge. Her symptoms persists despite taking her medications as prescribed. Two days ago, she took two 2 mg risperidone to end her life, but immediately called 911 for help, and was brought to the ED by EMS. She is currently experiencing moderate anxiety and depression and suicide thoughts without a plan. She denies HI/AVH. She smokes crack/cocaine once a week and has been smoking for the past 10 years; last crack/cocaine use was 2 days ago. She denies other drug use. She drinks 1 nips of alcohol weekly and smokes 4 cigarettes daily; she has been drinking and smoking since she was 17 years old. Tox screen positive for marijuana and cocaine. Her goal is for her depression and auditory hallucinations to get better. Clinical reasoning/formulation: Schizoaffective disorder, depressive type: Patient has been experiencing severe depression with suicide ideation with plan to overdose on her medications for the past 1 month. She has also been experiencing associated intermittent auditory and visual hallucinations. The source of her symptoms is unknown. If, in fact, patient is compliant with the medications, she likely needs medication adjustment/changes for symptoms management/improvement. Marijuana and cocaine use may have exacerbated her symptoms. Will restart Depakote 500 mg b.i.d., Haldol 5 mg b.i.d., and Cogentin 0.5 mg b.i.d. Will check valproate level in 5 days. Hospital course: 09/02 Patient polite and calm and friendly on approach. Patient asked to be restarted on the medication clozapine for auditory hallucinations. She says they continuing that they bother her very much. She said she was on clozapine 100 mg and has only been off of it for about 3 days. She said 100 mg was helpful but voices remained and is hoping to go up higher. Network Designer agreed to have it restarted and to titrate. Patient continues to feel suicidal 09/03 remains depressed with AH; still positive for SI. Clozaril increased to 100 mg total daily dose, home dose; will let it sit here for a couple days to see if AH mostly resolved; otherwise will continue to titrate 09/04: Continue current management and treatment plan. 09/05: Flagyl for TV. Otherwise continue current management and treatment plan. 09/06 patient reports doing well; AH remains but are no longer bothersome. Wants to keep Clozaril at current dose and discuss discharge planning. Patient is at baseline Plan Admit to M5. CV 15 minutes check. Increased to: Clozaril 25 mg daily Clozapine 75 q.h.s. q.h.s. Diagnostics as needed. Collateral contact. Continue remainder of regime. Encouraged full milieu. Discharge planning. Patient educated on: diagnosis and medication risk/benefits Informed Consent: understands Reason for continued inpatient stay Substantial Risk for: stable for discharge Time Spent With Patient Time: Total time managing care of this patient today ____ minutes.
--- NOTE | 2025-09-07 23:11 | HO.PSYCHPN ---
Subjective Subjective Date of Service: 09/07/25 Reason For Visit: F25 Interim History: Met with patient; discussed with team Patient reports she continues to do well, mood is good no SI and feeling back to her regular self. Some AH but not bothersome. Wants to remain on current regimen. Feels ready to go home and asked about discharge and agrees to discharging tomorrow. Mental Status Exam Mental Status Exam Narrative: Pt is alert and oriented; behavior is calm, in behavioral control; cooperative and friendly on approach; mostly keeps to herself in bed; patient is not in distress; dressed in casual attire with colorful wig; mood is described as good and affect congruent, brighter, calm; eye contact appropriate; Speech is normal rate, volume and prosody and not pressured; no psychomotor retardation present; thought process is goal directed, concrete; Thought content is on discharge planning; no delusional ideations expressed; no SI; no HI; positive for AH but much less and not bothersome Patients insight and judgment adequate and at baseline Diagnostics Vital Signs (24Hr): BMI result Body Mass Index 25.2 Labs 09/01/25 08:04 Labs: Laboratory Results - last 48 hr 09/06/25 16:33 Valproic Acid 74.5 Medications Medications Current Medications Acetaminophen (Acetaminophen 325 Mg Tablet) 650 mg PO Q6H PRN PRN Reason: Headache/Pain, Scale 1-10 Last Admin: 09/06/25 22:43 Dose: 650 mg Al Hydroxide/Mg Hydroxide (Magnesium Hydrox/Alum Hydrox 30 Ml Oral.Susp) 30 ml PO Q6H PRN PRN Reason: Heartburn/Nausea Benztropine Mesylate (Benztropine Mesylate 0.5 Mg Tablet) 0.5 mg PO BID [facility] Last Admin: 09/07/25 21:40 Dose: 0.5 mg Clozapine (Clozapine 25 Mg Tablet) 25 mg PO DAILY [facility] Last Admin: 09/07/25 08:43 Dose: 25 mg Clozapine (Clozapine 25 Mg Tablet) 75 mg PO BEDTIME [facility] Last Admin: 09/07/25 21:40 Dose: 75 mg Divalproex Sodium (Divalproex Sodium 500 Mg Tablet.Dr) 500 mg PO BID [facility] Last Admin: 09/07/25 21:40 Dose: 500 mg Haloperidol (Haloperidol 5 Mg Tablet) 5 mg PO BID [facility] Last Admin: 09/07/25 21:40 Dose: 5 mg Hydroxyzine HCl (Hydroxyzine Hcl 25 Mg Tablet) 25 mg PO Q6H PRN PRN Reason: mild anxiety Last Admin: 09/03/25 21:42 Dose: 25 mg Magnesium Hydroxide (Milk Of Magnesia 30 Ml Oral.Susp) 30 ml PO DAILY PRN PRN Reason: Constipation Metronidazole (Metronidazole 500 Mg Tablet) 500 mg PO Q12H YUDITH Last Admin: 09/07/25 21:40 Dose: 500 mg Nicotine (Nicotine 21 Mg Patch.Td24) 21 mg TRANSDERMA DAILY PRN PRN Reason: nicotine craving Last Admin: 09/05/25 09:51 Dose: 21 mg Nicotine Polacrilex (Nicotine Polacrilex 2 Mg Gum) 2 mg BUCCAL Q2H PRN PRN Reason: Nicotine Cravings Olanzapine (Olanzapine 5 Mg Tablet) 5 mg PO BID PRN PRN Reason: agitation Last Admin: 09/04/25 09:10 Dose: 5 mg Trazodone HCl (Trazodone Hcl 50 Mg Tablet) 50 mg PO BEDTIME MRX1 PRN PRN Reason: Insomnia Last Admin: 09/05/25 21:04 Dose: 50 mg Allergies Allergies Allergy/AdvReac Type Severity Reaction Status Date / Time quetiapine (From Seroquel) Allergy Hallucinati Verified 07/12/25 15:39 ons haloperidol (From Haldol) AdvReac Hallucinati Verified 07/12/25 15:39 ons Assessment & Plan Assessment & Plan (1) Schizoaffective disorder: Status: Chronic Code(s): F25.9 - Schizoaffective disorder, unspecified (2) Chronic post-traumatic stress disorder (PTSD): Status: Acute Code(s): F43.12 - Post-traumatic stress disorder, chronic (3) Suicidal ideation: Status: Resolved Code(s): R45.851 - Suicidal ideations (4) Cannabis use disorder, moderate, dependence: Status: Acute Code(s): F12.20 - Cannabis dependence, uncomplicated (5) Cocaine use disorder: Status: Acute Code(s): F14.10 - Cocaine abuse, uncomplicated Plan HPI: 44-year-old female with history of schizoaffective disorder, PTSD, and polysubstance use disorder (alcohol, cocaine, cannabis, nicotine) is a transfer from [facility] ED to [facility] yesterday for suicide attempt by taking six 2 mg risperidone tablets. On interview with his provider, patient states that she feels ?sad? because of the voice in her head for the past 1 month. She states that the voice comes and goes and says made things which she does not understand. She also reports ongoing intermittent visual hallucination only when outside. She sees people looking at her and saying things to her. She does not know if the people are real, nor does she understands what they say. Her last auditory hallucination was last night and visual hallucination was 2 days ago. She has been severely depressed with associated suicide ideation with a plan to overdose on her medications for the past 1 month. She does not know the source of her depression and suicide ideation. She has been taking her medications as prescribed and was at baseline before her current symptoms. She had 2 recent admissions at [place] with the first one a month ago and the second, 2 weeks ago for similar symptoms. Medication changes were made while hospitalized. However, her symptoms did not resolve, nor improve upon discharge. Her symptoms persists despite taking her medications as prescribed. Two days ago, she took two 2 mg risperidone to end her life, but immediately called 911 for help, and was brought to the ED by EMS. She is currently experiencing moderate anxiety and depression and suicide thoughts without a plan. She denies HI/AVH. She smokes crack/cocaine once a week and has been smoking for the past 10 years; last crack/cocaine use was 2 days ago. She denies other drug use. She drinks 1 nips of alcohol weekly and smokes 4 cigarettes daily; she has been drinking and smoking since she was 17 years old. Tox screen positive for marijuana and cocaine. Her goal is for her depression and auditory hallucinations to get better. Clinical reasoning/formulation: Schizoaffective disorder, depressive type: Patient has been experiencing severe depression with suicide ideation with plan to overdose on her medications for the past 1 month. She has also been experiencing associated intermittent auditory and visual hallucinations. The source of her symptoms is unknown. If, in fact, patient is compliant with the medications, she likely needs medication adjustment/changes for symptoms management/improvement. Marijuana and cocaine use may have exacerbated her symptoms. Will restart Depakote 500 mg b.i.d., Haldol 5 mg b.i.d., and Cogentin 0.5 mg b.i.d. Will check valproate level in 5 days. Hospital course: 09/02 Patient polite and calm and friendly on approach. Patient asked to be restarted on the medication clozapine for auditory hallucinations. She says they continuing that they bother her very much. She said she was on clozapine 100 mg and has only been off of it for about 3 days. She said 100 mg was helpful but voices remained and is hoping to go up higher. Online Trader agreed to have it restarted and to titrate. Patient continues to feel suicidal 09/03 remains depressed with AH; still positive for SI. Clozaril increased to 100 mg total daily dose, home dose; will let it sit here for a couple days to see if AH mostly resolved; otherwise will continue to titrate 09/04: Continue current management and treatment plan. 09/05: Flagyl for TV. Otherwise continue current management and treatment plan. 09/06 patient reports doing well; AH remains but are no longer bothersome. Wants to keep Clozaril at current dose and discuss discharge planning. Patient is at baseline 09/07 Patient reports she continues to do well, mood is good no SI and feeling back to her regular self. Some AH but not bothersome. Wants to remain on current regimen. Feels ready to go home and asked about discharge and agrees to discharging tomorrow. Plan Admit to M5. CV 15 minutes check. Increased to: Clozaril 25 mg daily Clozapine 75 q.h.s. q.h.s. Diagnostics as needed. Collateral contact. Continue remainder of regime. Encouraged full milieu. Discharge planning. Patient educated on: diagnosis and medication risk/benefits Informed Consent: understands Reason for continued inpatient stay Substantial Risk for: stable for discharge Time Spent With Patient Time: Total time managing care of this patient today ____ minutes.
--- NOTE | 2025-09-08 10:30 | P.DS_ITS ---
DS: Providers Provider Date of Service: 09/08/25 Date of admission: 08/31/25 18:37 Date of discharge: 09/08/25 Primary care physician: Unknown Physician Attending physician on admission: Maximus Meléndez Consults: 08/31/25 19:20 Consult to Hospitalist Routine Comment: Consulting Provider: [facility] Hospitalists Reason For Exam: New external admit H+P Attending physician on discharge: Charlie Johnson DS: Diagnosis Discharge Diagnosis (1) Schizoaffective disorder: Status: Chronic (2) Chronic post-traumatic stress disorder (PTSD): Status: Acute (3) Suicidal ideation: Status: Resolved (4) Cannabis use disorder, moderate, dependence: Status: Acute (5) Cocaine use disorder: Status: Acute DS: Medications Discharge Medications Home Medications: Previous Rx's ?Medication ?Instructions ?Recorded benztropine 0.5 mg tablet 0.5 mg PO BID 30 days #60 ta bs 09/08/25 clozapine 25 mg tablet 25 mg PO BID 30 days #60 tab s 09/08/25 clozapine 50 mg tablet 50 mg PO BEDTIME 30 days #30 tabs 09/08/25 divalproex 500 mg tablet,delayed 500 mg PO BID depress zakia disorder 09/08/25 release 30 days #60 tabs haloperidol 5 mg tablet 5 mg PO BID 30 days #60 tabs 09/08/25 metronidazole 500 mg tablet 500 mg PO BID 4 days #8 ta bs 09/08/25 Mental Status Exam Mental Status Exam Narrative: Pt is alert and oriented; behavior is calm, in behavioral control; cooperative and friendly on approach; mostly keeps to herself in bed; patient is not in distress; dressed in casual attire with colorful wig; mood is described as good and affect congruent, brighter, calm; eye contact appropriate; Speech is normal rate, volume and prosody and not pressured; no psychomotor retardation present; thought process is goal directed, concrete; Thought content is on discharge planning; no delusional ideations expressed; no SI; no HI; positive for AH but much less and not bothersome Patients insight and judgment adequate and at baseline Data Data Completed and Pending Completed studies during hospitalization [Text1]: 09/02/25 09/04/25 09/06/25 10:17 10:57 16:33 Absolute Neuts (auto) 3.8 Valproic Acid 74.5 T. vaginalis (PCR) DETECTED A Bact vaginosis (PCR) POSITIVE A C. krusei/glabrata (PCR) NOT DETECTED Dora group (PCR) NOT DETECTED DS: Summary Hospital Course Hospital Course: HPI: 44-year-old female with history of schizoaffective disorder, PTSD, and p olysubstance use disorder (alcohol, cocaine, cannabis, nicotine) is a transfer from [facility] ED to [facility] yesterday for suicide attempt by taking six 2 mg risperidone tablets. On interview with his provider, patient states that she feels ?sad? because of the voice in her head for the past 1 month. She states that the voice comes and goes and says made things which she does not understand. She also reports ongoing intermittent visual hallucination only when outside. She sees people looking at her and saying things to her. She does not know if the people are real, nor does she understands what they say. Her last auditory hallucination was last night and visual hallucination was 2 days ago. She has been severely depressed with associated suicide ideation with a plan to overdose on her medications for the past 1 month. She does not know the source of her depression and suicide ideation. She has been taking her medications as prescribed and was at baseline before her current symptoms. She had 2 recent admissions at [place] with the first one a month ago and the second, 2 weeks ago for similar symptoms. Medication changes were made while hospitalized. However, her symptoms did not resolve, nor improve upon discharge. Her symptoms persists despite taking her medications as prescribed. Two days ago, she took two 2 mg risperidone to end her life, but immediately called 911 for help, and was brought to the ED by EMS. She is currently experiencing moderate anxiety and depression and suicide thoughts without a plan. She denies HI/AVH. She smokes crack/cocaine once a week and has been smoking for the past 10 years; last crack/cocaine use was 2 days ago. She denies other drug use. She drinks 1 nips of alcohol weekly and smokes 4 cigarettes daily; she has been drinking and smoking since she was 17 years old. Tox screen positive for marijuana and cocaine. Her goal is for her depression and auditory hallucinations to get better. Hospital course/ Clinical reasoning/formulation: On admission patient depressed, AH and SI; significant psychomotor retardation. Patient wanted to restart her medication regimen. Schizoaffective disorder, bipolar type, currently depressed and reported severe depression with suicide ideation with plan to overdose on her medications for the past 1 month. Patient had associated intermittent auditory and visual hallucinations. Patient reported compliance with medication it seemed that ongoing Marijuana and cocaine use may have exacerbated her symptoms. Will restart Depakote 500 mg b.i.d., Haldol 5 mg b.i.d., and Cogentin 0.5 mg b.i.d. Will check valproate level in 5 days. Over subsequent days, patient mostly remained by herself in her room; pleasant on approach answering questions but not willing to engage further. She was restarted on medications and clozapine was titrated and soon patient reported feeling better; depression resolved, SI resolved and AH became minimal and tolerable. Patient was started on metronidazole for BV. Clozaril was titrated back to home dose of 100 mg total but she wanted it in divided doses; she was feeling better and so she remained on Haldol though as an outpatient, perhaps this could be tapered off and Clozaril increased instead of being on 2 antipsychotics which was discussed with patient. By the end of this admission, patient reported she remain doing good without any SI and feeling back to her regular self. Some AH but not bothersome. Substance abuse treatment and risks discussed with patient however at this time patient declines MAT or help with outpt treatment options including programs; instead patient is choosing to work out sobriety on own. Patient had returned to baseline and she felt ready for discharge. She will very likely continue to struggle with substance abuse subsequent decompensation however this is a chronic struggle which will not change with longer inpatient stay. She was not in imminent risk for harm to self or others and appropriate to return to the community for treatment. Medications: Continued Clozaril 25 mg daily and 75 q.h.s. q.h.s. Continued Haldol 5 mg b.i.d. Continue Depakote 500 mg b.i.d. Time spent discussing smoking cessation with patient: 3 to 10 minutes Status at Discharge Functional status at discharge: independent ambulation Overall status at discharge: patient is back to baseline Time Spent with Patient Time attestation: Total time managing care of this patient today _40___ minutes. Time spent: Greater than 30 minutes Specific discharge activities: Met with patient; discussed with team; charting; prescriptions Discharge Plan Discharge Anticipated Discharge Date/Time: 09/08/25 11:00 Patient Disposition: Home, Self-Care Discharge Diagnosis: schizoaffective disorder, bipolar type Referrals: [facility]: Apolinar Haynes (psychiatry) [Other] - 09/28/25 2:00 pm Referral Note: Hospital discharge appointment Appointment in person at [facility] for psychiatric medication management services Arrive 15 minutes prior to complete paperwork [facility] (therapy) [Other] - 1 Week Referral Note: Hospital discharge You have been added to wait list for outpatient therapy services [facility] Partial Hospitalization Program(PHP) [Other] - 1 Week Referral Note: Referral to PHP program at [facility] Physician,Unknown J [Primary Care Provider, Medical] - 1 Week Discharge Medications: New metronidazole 500 mg Tablet 500 mg PO BID 4 Days Qty: 8 0RF clozapine 25 mg Tablet 25 mg PO BID 30 Days Qty: 60 1RF clozapine 50 mg tablet 50 mg PO BEDTIME 30 Days Qty: 30 1RF Continued benztropine 0.5 mg tablet 0.5 mg PO BID 30 Days Qty: 60 0RF haloperidol 5 mg tablet 5 mg PO BID 30 Days Qty: 60 0RF divalproex 500 mg tablet,delayed release (DR/EC) 500 mg PO BID 30 Days Qty: 60 0RF Discharge Orders: Discharge Order (Routine); Ordered 09/08/25 Ordered By: Charlie Johnson Diet: Regular diet Activity on Discharge: As tolerated Stand Alone Forms: Patient Portal Discharge page, Community Support Print Language: Mongolian Care Plan Goals: Maintain mood and safe behaviors Take medications as prescribed Continue to pursue sobriety Practice coping skills Continue with outpatient providers and reach out to them as needed Health Concerns: Mood stability and behaviors Sobriety Plan of Treatment: Follow up with your PCP, psychiatric provider and other outpatient providers regarding above concerns Take medications as prescribed Assessment: Risk assessment at time of discharge:? Patient was interviewed prior to discharge and found to be fully oriented and without any SI or HI. Patient has improved insight and judgment and wants to continue treatment. Patient is not in imminent risk of harm to self or others and has a safety plan that includes presenting to the closest ER or calling 911 if feeling unsafe.? Patient has been observed closely by nursing and unit staff throughout admission; patient has not engaged in any behaviors that suggest dangerousness to self or others and has demonstrated appropriate behaviors and impulse control
== END 2025-09-08 11:00 | disposition home or self-care (01) | DRG 885 ==
PROVIDERS: Nurse Practitioner Family; Nurse Practitioner Psychiatric/Mental Health; Psychiatry & Neurology Psychiatry; Admitting Provider Psychiatry & Neurology Psychiatry; Visit Provider Psychiatry & Neurology Psychiatry
DX: F25.0 Schizoaffective disorder, bipolar type (principal); F43.12 Post-traumatic stress disorder, chronic; T43.592A Poisoning by other antipsychotics and neuroleptics, intentional self-harm, initial encounter; F14.10 Cocaine abuse, uncomplicated; F12.20 Cannabis dependence, uncomplicated; Z79.899 Other long term (current) drug therapy
CPT/HCPCS: 36415; 80053; 80061; 80164; 81515; 83036; 84439; 84443; 85048

== ENCOUNTER → 2025-08-31 18:37 | Outpatient (BNV) | payer MEDICARE, MEDICAID, SELFPAY | PROVIDERS: Admitting Provider Psychiatry & Neurology Psychiatry; Visit Provider Nurse Practitioner Family | DX: F25.9 Schizoaffective disorder, unspecified (principal); R45.851 Suicidal ideations; F43.12 Post-traumatic stress disorder, chronic; F12.20 Cannabis dependence, uncomplicated; F14.10 Cocaine abuse, uncomplicated | CPT/HCPCS: 90792; 99232 ==

== ENCOUNTER → 2025-08-31 18:37 | Outpatient (BNV) | payer MEDICARE, MEDICAID, SELFPAY | PROVIDERS: Admitting Provider Psychiatry & Neurology Psychiatry; Visit Provider Nurse Practitioner Family | DX: R94.6 Abnormal results of thyroid function studies (principal) | CPT/HCPCS: 99221 ==